=== PATIENT | male | born 1975 | race Caucasian/White ===

== ENCOUNTER 2017-04-24 16:00 | Outpatient (RCR) | payer OTHER, SELFPAY ==
--- NOTE | 2017-04-08 17:03 | HP.PTEVAL_ITS ---
Patient's Visit Information DANIELLE DUMAS is a 41 year old M referred to Physical Therapy by Eliu OLIVEIRA with a diagnosis of L ant tib tendon rupture. Date of Evaluation: 04/08/17 Physical Therapist: Telly Lanza PT, - Visit Plan Frequency: 2-3x /Week Duration: 3 Weeks Plan: L ankle stretching and strengthening, balance and proprio, bike, and HEP. CP for pain - Subjective Subjective: DOS= 12/20/16. Pt reports he was in a boot NWB'ing for 6 weeks, then in a boot WBAT for 6 more weeks. Pt reports he was lifting heavier boxes back then and experienced a sudden popping his L ankle. Pt reports the pain was severe at first, but then went away and didnt bother him. Pt reports he still had to have surgery due to toe drop while walking. Pt reports he is glad he had the surgery at this time. Pt reports he is now in full control lof his foot, even though the ROM is very limited. No T or N from this injury. Pt reports he broke his L lower leg and ankle in in 2010 when descending stairs. 0/10 at rest , None over the last week. 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 Neuro: B LE sensation is WNL to light touch. MMT: R ankle 5/5 throughout, L ankle 3+/5 throughout. ROM: R DF= 9, PF=55; L ankle DF= -5, PF= 35 - Goals Goal 1:: Decrease L ankle pain to 0/10 with all activity to return to his premorbid level Goal Time Frame: 3 weeks Goal 2:: Increase L ankle DF ROM x 15 degrees to aid with restoring normal gait pattern Goal Time Frame: 3 weeks Goal 3:: Increase L ankle strength x 1 grade to aid with IADL's Goal Time Frame: 3 weeks Goal 4:: I with HEP Goal Time Frame: 3 weeks - Rehabilitation Potential Physical Therapy Diagnosis: L ankle pain, weakness, and limited ROM secondary to a L anterior tibial tendon rupture Rehabilitation Potential: Good - Anticipated Interventions Patient/Client Instruction: Educate patient on: Condition, Plan of Care For the Purpose of:: To improve self management Therapeutic Exercise to Include: Strength training, Endurance training, Balance training, Body mechanics, Gait and locomotor training, Dynamic Lumbar Stabilization For the Purpose of:: To decrease pain, To increase ROM, To improve muscle performance and motor function Cryotherapy (ice pack, ice massage): Yes For the Purpose of:: To decrease pain Thank you for the opportunity to evaluate your patient. For Medicare and Medicare HMO plans, please review the plan of care and approve it. It will need to be FAXED BACK to us at [phone] for Medicare purposes. Please let me know if there are questions or concerns regarding this plan of care. Physician Signature: Date:
--- NOTE | 2017-06-16 12:05 | HP.PT.NRP ---
HP - Discharge Summary (1) - Patient Information DANIELLE DUMAS was seen in my office for initial evaluation on 04/08/17. The following Plan of Care was established for this patient: Initial Frequency: 2-3x /Week Initial Duration: 3 Weeks - Anticipated Interventions Patient/Client Instruction: Educate patient on: Condition, Plan of Care For the Purpose of:: To improve self management Therapeutic Exercise to Include: Strength training, Endurance training, Balance training, Body mechanics, Gait and locomotor training, Dynamic Lumbar Stabilization For the Purpose of:: To decrease pain, To increase ROM, To improve muscle performance and motor function Cryotherapy (ice pack, ice massage): Yes For the Purpose of:: To decrease pain This patient was last seen in our office . Pertinent comments regarding their Physical therapy will appear below: Pt was last treated on the date of 04/24/17 for his third PT visit. Pt has not returned since that date and is therefore discontinued at this time At this point I will be discontinuing this patient from physical therapy. I would be happy to see this patient again in the future if found appropriate by the physician. Thank you! Telly Lanza, PT,
== END 2017-04-24 19:00 | disposition home or self-care (01) ==
LOC: PT 16:00
PROVIDERS: Family Provider Family Medicine; PCP Family Medicine; Visit Provider Podiatrist
DX: Z98.890 Other specified postprocedural states (principal)
CPT/HCPCS: 97110; 97161

== ENCOUNTER → 2018-11-17 17:40 | Outpatient (CLI) | payer MEDICAID, SELFPAY | PROVIDERS: Family Provider Family Medicine; PCP Family Medicine; Referring Provider Podiatrist; Visit Provider Podiatrist | DX: L03.032 Cellulitis of left toe (principal) | CPT/HCPCS: 87070; 87075; 87077; 87186; 87205 ==

== ENCOUNTER → 2019-04-01 17:44 | Outpatient (CLI) | payer MEDICAID, SELFPAY ==
[2016-12-20 11:17] VITALS: BMI 50.1
== END ==
PROVIDERS: PCP Family Medicine; Referring Provider Podiatrist; Visit Provider Podiatrist
DX: L03.031 Cellulitis of right toe (principal)
CPT/HCPCS: 87070; 87075; 87077; 87186; 87205

== ENCOUNTER → 2019-04-30 11:41 | Outpatient (CLI) | payer MEDICAID, SELFPAY ==
[2019-04-30 10:50] VITALS: BMI 44.4
[2019-04-30 12:29] LABS: Absolute Lymphocyte Count 2.53 X10^3/uL (0.83-4.51); Absolute Neutrophil Count 7.5 X10^3/uL (2.0-7.7); Basophil# 0.03 X10^3/uL; Basophil% 0.3 % (0-1); Eosinophil# 0.16 X10^3/uL; Eosinophils% 1.4 % (0-5); Hematocrit 48.9 % (40-54); Hemoglobin 16.1 g/dL (13.0-16.5); Lymphocyte # 2.53 X10^3/ul (4.0); Lymphocyte % 22.8 % (19-41); Mean Corp Hgb Conc 32.9 g/dL (32-36); Mean Corpuscular Hgb 28.8 pg (27.0-32.0); Mean Corpuscular Volume 87.5 fL (80-94); Mean Platelet Vol. 10.3 fl (6.2-12.0); Monocyte# 0.86 X10^3/uL; Monocyte% 7.7 % (0-10); NRBC Flagged by Analyzer 0 % (0-5); Neutrophil # 7.48 X10^3/uL (2.7-7.7); Neutrophil % 67.3 % (47-70); Platelet Count 200 K/mm3 (150-450); RBC Distribution Width CV 13.4 % (11.6-14.6); RBC Distribution Width SD 42.7 fl (35.1-43.9); Red Blood Count 5.59 M/mm3 (4.6-6.2); White Blood Count 11.1 K/mm3 (4.4-11.0)
[2019-04-30 13:29] LABS: ALB/GLOB Ratio 1.1 RATIO (0.9-2.4); AST(SGOT) 31 U/L (15-37); Alanine Aminotransfer ALT/SGPT 78 U/L (16-61); Alkaline Phosphatase 99 U/L (45-117); Anion Gap 6 (5-15); BUN 18 mg/dL (7-18); Calcium,Total 9.2 mg/dL (8.5-10.1); Chloride 105 mmol/L (98-107); Cholesterol 124 mg/dL (200); Creatinine, Serum 0.82 mg/dL (0.70-1.30); EST Glomerular Filtration Rate 109 mL/min (>60); Est Glom Filt Rate - Afr Amer 132 mL/min (>60); Globulin 3.6 g/dL (2.2-4.2); Glucose 96 mg/dL (74-106); High Density Lipoprotein 26 mg/dL; Potassium 4.2 mmol/L (3.5-5.1); Protein, Total 7.6 g/dL (6.4-8.2); Sodium Level 139 mmol/L (136-145); Triglycerides 92 mg/dL; Very Low Density Lipoprotein 18 mg/dL (5-40)
== END ==
PROVIDERS: PCP Internal Medicine; Referring Provider Internal Medicine; Visit Provider Internal Medicine
DX: Z00.00 Encounter for general adult medical examination without abnormal findings (principal)
CPT/HCPCS: 36415; 80053; 80061; 85025

== ENCOUNTER → 2019-05-12 | Outpatient (CLI) | payer MEDICAID, SELFPAY ==
[2019-04-30 10:50] VITALS: BMI 44.4
== END | disposition home or self-care (01) ==
LOC: LABSPEC 16:45
PROVIDERS: PCP Internal Medicine; Referring Provider Podiatrist; Visit Provider Podiatrist
DX: L97.519 Non-pressure chronic ulcer of other part of right foot with unspecified severity (principal); L03.031 Cellulitis of right toe
CPT/HCPCS: 87070; 87075; 87077; 87186; 87205

== ENCOUNTER 2019-06-11 05:55 | Day surgery (SDC) | payer MEDICAID, SELFPAY ==
[2019-04-30 10:50] VITALS: BMI 44.4
--- NOTE | 2019-06-09 11:13 | EKG12_ITS ---
Test Reason : PRE OP Blood Pressure : / mmHG Vent. Rate : 071 BPM Atrial Rate : 071 BPM P-R Int : 148 ms QRS Dur : 094 ms QT Int : 378 ms P-R-T Axes : 045 003 024 degrees QTc Int : 410 ms Normal sinus rhythm Normal ECG When compared with ECG of 31-DEC-2010 19:29, No significant change was found Confirmed by PATTI LEAL, PAULINA ([id number]), editor producer RADHA ALLISON ([id number]) on 06/09/2019 1:12:12 PM Referred By: Eliu Benites Confirmed By:PAULINA ARMSTRONG MD
[2019-06-11] VITALS (9 sets, daily range): BP systolic 87–135; BP diastolic 54–70; PULSE 64–76; RESP 16–18; TEMP 36.4; O2SAT 92–98; BMI 43.2
--- NOTE | 2019-06-11 | BON_PTH ---
PATIENT: DANIELLE DUMAS LOC: [facility] – [place] U#:[id number] AGE/SX: 43/M ROOM: RE06/11/[address]: Dr. Eliu Benites DPM : 1975 BED: DIS: 06/11/2019 SPEC #: [id number] RECD: 06/11/19 12:05 STATUS: CANDY KEV #: [id number] BEVERLY: 06/11/19 00:[address]: Eliu Benites DEPT: SURGICAL PATHOLOGY RECD BY: Ross Stanley ENTERED: 06/11/19 12:05 SP TYPE: Bone OTHR DR: Dr. Licha Brar MD Tissues: Bone of foot, NOS Procedures: Decalcification bone/plaque Surgery Specimen Level IV HEADER OPERATION: Mason arthroplasty first toe, fusion second, third and fourth toes PRE-OP DIAGNOSIS: Recurrent infection right third toe with ulcer formation, hammertoe 2-5 and hallux varus right foot TISSUE SUBMITTED: Bone from right 1-5 toes MICROSCOPIC DIAGNOSIS Bone, 1-5 toes, biopsies: Chronic reparative and reactive change. No evidence of acute osteomyelitis. See comment. AM:tiffany 06/17/19 COMMENT Clinical correlation is suggested. MICROSCOPIC DESCRIPTION Slides are reviewed. GROSS DESCRIPTION Received in fixative is one container labeled with the patient's name and designated bone from right 1-5 toes. The specimen consists of multiple fragments of bone that in aggregate measure 6.5 x 5 x 2 cm. Admittance Attendant sections are submitted in four cassettes after decalcification. / SJ:tiffany 06/14/19 TC:5 CPT: 30711, 02722
[2019-06-11] MEDS: Lactated Ringers 1,000 ML 100 ML IV (06:24)
--- NOTE | 2019-06-11 07:28 | DCINST_ITS ---
Discharge Diet: Light diet - advance as tolerated Discharge Activity: May Not Drive Weight Bearing Status: No weight bearing - No weightbearing right foot Keep extremity elevated above heart level: Right Leg - Keep right foot elevated for at least 50 minutes of every hour Call your doctor if your incision/area has: Continuous Slow Oozing, Sudden Increased Bleeding, Foul Smelling Discharge Call your doctor if you observe: Fever of 101 or Higher, Shortness of breath, Chest pain, Calf discomfort, Uncontrolled pain Cleanse incision/area with: Do not get Incision Wet, Keep Dressing Clean & Dry Allergies/Adverse Reactions: Allergies No Known Allergies Allergy (Verified 06/11/19 06:14) Medications to take at Discharge Amoxicillin/Potassium Clav [Augmentin 875-125 Tablet] 1 ea PO Q12H #14 tab 06/11/19 Oxycodone HCl/Acetaminophen [Percocet 5/325] 1 - 2 tab PO Q6H PRN PRN 4 Days #30 tab 06/11/19 The following prescriptions were given: Amoxicillin/Potassium Clav [Augmentin 875-125 Tablet] 1 ea PO Q12H #14 tab Transmission Status: Received by [facility] Oxycodone HCl/Acetaminophen [Percocet 5/325] 1 - 2 tab PO Q6H PRN PRN 4 Days #30 tab PRN Reason: Pain Transmission Status: Received by [facility] Primary Care Physician: Licha Brar MD [Primary Care Provider] - Test Results: Test results from this visit will be discussed in further detail at your follow- up appointment, if applicable. Please Follow Up With: Eliu Benites DPM When: 1 week at office, sooner if needed
--- NOTE | 2019-06-11 07:30 | RAD_ITS ---
STUDY: X-RAY RIGHT FOOT TOES REASON FOR EXAM: Male, 43 years old. RAMOS ARTHROPLASTY OF 1ST TOE, FUSION OF 2-4TH TOES, AND ARTHROPLASTY OF 5TH TOE TECHNIQUE: 48 intraoperative view(s) of the toes. COMPARISON: December 14, 2016. IMPRESSION/FINDINGS: Multiple arthroplasties/arthrotomies with hardware well aligned Fluoroscopic images submitted to PACS for procedural/postsurgical documentation Please see procedural/surgical note Radiologist not present at the time of examination Electronically Signed: Cheo Carlson DO at 11:10 EDT Tel , Service support , RAD/Toe(s) Min 2 Views
[2019-06-11] MEDS: Bupivacaine Mpf 0.5% 30 ML VIAL (10:11)
--- NOTE | 2019-06-11 10:26 | OP.PCM_ITS ---
Report of Operation Date of Procedure: 06/11/19 Pre-Operative Diagnosis: Right foot: Ulcer to subcutaneous tissue 3rd toe, Hallux varus, 2-5 hammer toe. 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 He has ulceration to the left 3rd toe, with recurrent infection. Overall worsening is present, and there is concern about repeat infections to the 3rd toe. Therefore since symptoms persist and overall worsening with repeat infections despite nonsurgical care, he has elected to undergo surgical intervention. This is medically necessary due to reasons above. Reviewed risks of COVID 19 w/ patient. This was discussed with him in detail, reviewed the possible benefits vs risks, goals, expectations, alternative options, and typical healing/post op recovery. The consent forms were reviewed with him, and he freely signed them. He would like to proceed forward. All of questions were answered. No guarantees were given nor implied. No warranties were given. Operative Procedure: The patient was brought back into the operating room and was placed on the operating room table in the supine position. Patient was carefully secured to the operating room table with a safety belt around the waist. A time out was performed and the patient was properly identified and the surgical plan was confirmed. The patient received 3g of IV cefazolin for antibiotic prophylaxis. A well padded pneumatic tourniquet was applied around the patient's right ankle. The patient received anesthesia per the anesthesiologist. The right foot was scrubbed, prepped, draped in the usual aseptic fashion. Further attention was directed to the right foot and there again was noted to be severe hallux varus and 2-5 hammer toes with ulceration to the tip of the 3rd toe - the ulcer was currently down to dermal layer, however was recently down to subcutaneous tissue layer. There was acute infection at this time, but patient has had repeat infections and overall symptoms worsening w/ pain. A total of 16.5 mL of a 50/50 mixture of 1% Lidocaine plain and 0.5% Bupivacaine pain was given as a forefoot nerve block. The right foot was exsanguinated with an Esmarch bandage and the ankle pneumatic tourniquet was inflated to 250mmHg. Right hallux varus: The 1st toe was significantly medially deviated and severely deformed w/ significant limited range of motion to the 1st metatarsal phalangeal joint. A linear longitudinal skin incision was made overlying the dorsal medial aspect of the 1st metatarsal phalangeal joint, located medial to the extensor hallucis longus tendon. The incision was carefully deepened to the dorsal 1st metatarsal phalangeal joint capsule, which was incised and partially reflected exposing the 1st metatarsal head as well as the base of the hallux proximal phalanx. The 1st MTPJ was visualized and there was significant degenerative changes present consistent with advanced osteoarthritis and deformity. The base of the hallux proximal phalanx was excised but the very distal insertion point of the flexor digitorum brevis was left intact. There was still some varus deformity and limited range of motion, therefore due to severe arthritic changes and deformity the distal aspect of the 1st metatarsal was resected via a powered sagittal saw. Now the toe was in good position and this allowed for good smooth range of motion of the hallux. The resected bone was sent to pathology for further evaluation. The toe was now in good alignment. The site was stabilized with a Sofia pin through the 1st toe into the 1st metatarsal with the 1st toe in rectus position and out to appropriate length. The site was flushed out with copious amounts of normal saline solution. The capsule was reapproximated using 2-0 and 3-0 Vicryl, the subcutaneous tissue was reapproximated using 3-0 Vicryl, and the skin was reapproximated using 4-0 Monocryl. The pin was trimmed outside of the toe at the distal aspect and was capped with a pin cap. Right 2nd digit hammer toe: Attention was directed to the toe on the right foot. A dorsal linear longitudinal incision was made over the proximal interphalangeal joint (PIPJ) of the toe. An incision was made longitudinally to the extensor digitorum longus tendon and split down the middle, leaving the ends intact, this was done with a 15 blade. The dorsal PIPJ joint capsule was incised with a 15 blade. The cartilage from the head of the proximal phalanx was resected using a powered sagittal saw, and cartilage from the base of the middle phalanx was resected using a sagittal saw. The site was flushed out with copious amounts of normal saline solution. An Arthrex FT compression screw was placed through the phalanges of the toe holding the toe in rectus position. This was confirmed with intra operative fluoroscopy. The site was again flushed out with copious amounts of normal saline solution. The skin was reapproximated using 4-0 Monocryl. Right 3rd digit hammer toe: Attention was directed to the toe on the right foot. A dorsal linear longitudinal incision was made over the proximal interphalangeal joint (PIPJ) of the toe. An incision was made longitudinally to the extensor digitorum longus tendon and split down the middle, leaving the ends intact, this was done with a 15 blade. The dorsal PIPJ joint capsule was incised with a 15 blade. The cartilage from the head of the proximal phalanx was resected using a powered sagittal saw, and cartilage from the base of the middle phalanx was resected using a sagittal saw. The site was flushed out with copious amounts of normal saline solution. An Arthrex FT compression screw was placed through the phalanges of the toe holding the toe in rectus position. This was confirmed with intra operative fluoroscopy. The site was again flushed out with copious amounts of normal saline solution. The skin was reapproximated using 4-0 Monocryl. Right 4th digit hammer toe: Attention was directed to the toe on the right foot. A dorsal linear longitudinal incision was made over the proximal interphalangeal joint (PIPJ) of the toe. An incision was made longitudinally to the extensor digitorum longus tendon and split down the middle, leaving the ends intact, this was done with a 15 blade. The dorsal PIPJ joint capsule was incised with a 15 blade. The cartilage from the head of the proximal phalanx was resected using a powered sagittal saw, and cartilage from the base of the middle phalanx was resected using a sagittal saw. The site was flushed out with copious amounts of normal saline solution. An Arthrex FT compression screw was placed through the phalanges of the toe holding the toe in rectus position. This was confirmed with intra operative fluoroscopy. The site was again flushed out with copious amounts of normal saline solution. The skin was reapproximated using 4-0 Monocryl. Right 5th digit hammer toe: Two oblique semi-elliptical converging skin incisions were made around the dorsal aspect of the proximal interphalangeal joint (PIPJ) of the 5th toe. The skin within the incisions was excised. The extensor digitorum longus tendon was visualized and incised transversely with a 15 blade. The dorsal PIPJ joint capsule was incised with a 15 blade. The extensor tendon was reflected off of the head of the proximal phalanx. The PIPJ was visualized. The head of the proximal phalanx was resected using a powered sagittal saw, and this was sent to pathology. The site was flushed out with copious amounts of normal saline solution. A 0.062 inch kwire was placed through the phalanges of the toe holding the toe in rectus position. This was confirmed with intra operative fluoroscopy. The site was again flushed out with copious amounts of normal saline solution. The joint capsule and extensor digitorum longus tendon was reapproximated using 3-0 Vicryl, the skin was reapproximated using 4-0 Monocryl. The kwire was trimmed outside of the toe at the distal aspect and was capped with a pin cap. The pneumatic tourniquet was deflated at 109 minutes which was prior to closure, and there was immediate return of warmth and perfusion to the foot and to all toes on the foot with normal temperature gradient and CFT < 2 seconds to all toes. Hemostasis was achieved with pressure. Also of note all vital structures including all vital neurovascular and soft tissue structures were properly identified, retracted, and protected as necessary during the procedures. An additional 16.5 mL of a 50/50 mixture of 1% Lidocaine plain and 0.5% Bupivacaine pain was given as a forefoot nerve block to aid with post op pain control. At the end, a dressing was applied which consisted of Cavilon to the edges of the sutured skin incision with overlying steristrips. Then Betadine soaked adaptic, 4x4 gauze, Kerlix, and haily bandages were applied being sure to apply it not too tight. The patient tolerated the above operative procedure well at the anesthesia well with no complication. The patient was transported to the recovery room with vital signs stable and in good condition. Post operative orders were placed. Post operative instructions were reviewed and dispensed verbal and written - this was reviewed with patient and pre op and again with patient's post op. No weightbearing right, keep foot elevated for at least 50 minutes of every hour, keep dressing clean, dry and intact. Prescription for Percocet 5mg/325mg tabs - 1-2 tabs PO q 6 hours prn pain was prescribed, also Augmentin 875/125mg PO q 12 hours for 1 week due to infection history. Patient is to follow up with me in 1 week, sooner if needed. Also post op foot xrays (right) were obtained and reviewed in the PACU. Findings show 1st MTPJ arthroplasty with 1st toe in rectus position and pin intact, arthrodesis 2nd toe, 3rd toe, and 4th toe with toes in rectus position, also arthroplasty 5th toe in rectus position with kwire intact. Otherwise no other acute findings and no complications seen. Grafts/Implants Used: 1 Sofia pin, 1 x 0.062 in kwire, 3 x Arthrex FT screws - Complications None
--- NOTE | 2019-06-11 10:31 | RAD_ITS ---
STUDY: X-RAY - RIGHT FOOT CLINICAL: Male, 43 years old. Postoperative evaluation. TECHNIQUE: 3 view(s) of the foot. COMPARISON: December 20, 2016. FINDINGS: Arthroplasty at the first metatarsophalangeal joint. First digit surgical fixation hardware and intact/well aligned. Moderate/severe first interphalangeal joint arthrosis. Second through fifth proximal and distal interphalangeal joint fixations with degenerative features. No acute postoperative complications. Mild/moderate tarsometatarsal joint arthrosis. Moderate diffuse midfoot arthrosis. Achilles enthesophyte. Plantar spur. Postoperative soft tissues. RAD/Foot min 3 Views IMPRESSION: Uncomplicated postsurgical changes, as above Degenerative changes, as above Postoperative soft tissues Electronically Signed: Cheo Carlson DO at 11:12 EDT Tel , Service support ,
== END 2019-06-11 12:24 | disposition home or self-care (01) ==
LOC: SDC 05:56 → AC 05:56
PROVIDERS: PCP Internal Medicine; Referring Provider Podiatrist; Visit Provider Podiatrist
PROC: (CPT 28285; principal; 2019-06-11 07:15)
DX: M20.41 Other hammer toe(s) (acquired), right foot (principal); L97.512 Non-pressure chronic ulcer of other part of right foot with fat layer exposed; M20.31 Hallux varus (acquired), right foot; L97.529 Non-pressure chronic ulcer of other part of left foot with unspecified severity; Z87.891 Personal history of nicotine dependence
CPT/HCPCS: 01480; 28285 ×5; 73630; 73660; 76000; 88304; 88305; 88311; 93005; C1713; J7120; J2405

== ENCOUNTER 2019-07-24 20:48 | Inpatient (IN) | payer MEDICAID, SELFPAY ==
[2019-06-11 06:16] VITALS: BMI 43.2
[2019-07-24] VITALS (8 sets, daily range): BP systolic 115–128; BP diastolic 62–77; PULSE 77–93; RESP 13–20; TEMP 36.6–36.8; O2SAT 96–99; BMI 42.0
--- NOTE | 2019-07-24 21:34 | CT_ITS ---
STUDY: CT RIGHT FOOT REASON FOR EXAM: Male, 43 years old. S/P RIGHT FOOT SX 4-24, EDEMA AND DRAINAGE NOW WITH ERYTHEMA RADIATION DOSAGE (If Supplied By Facility): CTDIvol = ( 15.35 ) mGy, DLP = ( 449.71 ) mGycm TECHNIQUE: Thin section transaxial imaging of the foot was obtained, with sagittal and coronal reconstructed images. Individualized dose optimization techniques were used for this CT. COMPARISON: Radiographs 06/10/2009. FINDINGS: Abnormal appearance of the first metatarsal joint area. Previously seen K wire through the joint has been removed. There is nonspecific soft tissue swelling surrounding the first metatarsophalangeal area and there are irregularities of the resected edges of the first metatarsal and the first proximal phalanx along with a small amount of bone debris in the surgical bed. Findings are nonspecific but strongly suggest infection including osteomyelitis. Stable post surgical changes of the second third and fourth digits. K wire has been removed from the fifth digit. No definite focal fluid collection, however fluid in the postoperative site of the first ray is not excluded. Degenerative changes throughout the midfoot. CT/Extremity Lower WITH Contrast IMPRESSION: Nonspecific appearance of the postoperative bed of the first metatarsal head and first proximal phalanx. Soft tissue swelling. Possible osteolytic destruction of the resected edges of the bones with some calcific debris. Osteomyelitis surrounded by soft tissue infection strongly suggested. Electronically Signed: Matteo Manjarrez MD at 22:53 EDT , Service support ,
[2019-07-24 21:50] LABS: Absolute Lymphocyte Count 3.25 X10^3/uL (0.83-4.51); Absolute Neutrophil Count 8.5 X10^3/uL (2.0-7.7); Basophil# 0.02 X10^3/uL; Basophil% 0.2 % (0-1); Eosinophil# 0.17 X10^3/uL; Eosinophils% 1.3 % (0-5); Hematocrit 46.2 % (40-54); Hemoglobin 14.9 g/dL (13.0-16.5); Lymphocyte # 3.25 X10^3/ul (4.0); Lymphocyte % 25.2 % (19-41); Mean Corp Hgb Conc 32.3 g/dL (32-36); Mean Corpuscular Hgb 28.3 pg (27.0-32.0); Mean Corpuscular Volume 87.8 fL (80-94); Mean Platelet Vol. 9.3 fl (6.2-12.0); Monocyte# 0.92 X10^3/uL; Monocyte% 7.1 % (0-10); NRBC Flagged by Analyzer 0 % (0-5); Neutrophil # 8.47 X10^3/uL (2.7-7.7); Neutrophil % 65.8 % (47-70); Platelet Count 214 K/mm3 (150-450); RBC Distribution Width CV 13.5 % (11.6-14.6); Red Blood Count 5.26 M/mm3 (4.6-6.2); White Blood Count 12.9 K/mm3 (4.4-11.0)
--- NOTE | 2019-07-24 21:54 | ED.VIS.GEN ---
History of Present Illness Chief Complaint: Wound Check Informant: Patient Onset: Today Narrative: Patient had right foot surgery by Dr. Benites at the end of May. He states he was healing up appropriately was due to come out of his boot this coming week. Today when he awoke he noted significant swelling redness and warmth coming from the right great toe and associated metatarsal. The surgical incision began to open up and drain fluid. He states he really was not feeling having had some diarrhea and fatigue. no known fever. Past Medical History - Allergies and Home Meds Allergies/Adverse Reactions: Allergies No Known Allergies Allergy (Verified 07/24/19 20:53) Smoking Status: Former smoker - Family History Maternal Family History: Family History (Last Updated 04/30/19 @ 10:54 by Adelia Ferrer) Father Colon cancer Diabetes Skin cancer Mother Hypertension Family History: Reports: Hypertension Paternal Family History: Family History (Last Updated 04/30/19 @ 10:54 by Adelia Ferrer) Father Colon cancer Diabetes Skin cancer Mother Hypertension Family History: Reports: Cancer - Colon cancer., Diabetes Review of Systems General: Denies: Chills, Fever, Sweats Eyes: Denies: Visual changes - bilaterally, Diplopia ENT: Denies: Rhinorrhea, Sore throat Cardiovascular: Denies: Chest pain, Palpitations Respiratory: Denies: Dyspnea, Cough, Dyspnea on exertion Gastrointestinal: Denies: Abdominal pain, Nausea, Vomiting, Diarrhea, Melena, Hematochezia Genitourinary: Denies: Dysuria, Hematuria, Frequency Musculoskeletal: Reports: Swelling, Extremity Pain. Denies: Back pain Skin: Reports: Rash. Denies: Wounds Neurological: Denies: Headache, Weakness, Numbness Physical Exam Vital Signs/Narrative: Vital Signs Temp Pulse Resp BP Pulse Ox 07/24/19 21:50 88 18 124/77 H 97 07/24/19 21:27 98 F 90 18 124/77 H 97 07/24/19 20:49 98.2 F 93 15 128/65 H 97 Inital Vital Signs reviewed: Yes General: Well nourished, Well developed, No Acute Distress Head: Normocephalic, Atraumatic Eyes: Perrl, EOMI ENT: Moist mucous membranes, No rhinorrhea Neck: Supple, Nontender Cardiovascular: Regular rate, Regular rhythm, No murmurs Respiratory: No distress, CTA bilaterally, Chest nontender Abdomen: Soft, Nontender, Nondistended, Normal bowel sounds Back: Nontender, Normal Inspection Extremities: Tenderness - Right great toe and associated metatarsal region showed significant swelling and erythema and warmth. The distal part of the great toe however appears normal. The surgical incision is opening and there is serosanguineous drainage. There is no lymphangitic streaking. I do not know if there is fluctuance or just edema that I am feeling. Skin: Normal color, No rash Neurological: Alert, Oriented x3, Cranial nerves II-XII grossly intact, Normal Strength, Normal Sensation Psychological: Normal affect, Normal Mood Diagnostic/Tx/Re-eval Clinical Impression(s) from Imaging Studies Lower Extremity CT 07/24/19 21:34 IMPRESSION: Nonspecific appearance of the postoperative bed of the first metatarsal head and first proximal phalanx. Soft tissue swelling. Possible osteolytic destruction of the resected edges of the bones with some calcific debris. Osteomyelitis surrounded by soft tissue infection strongly suggested. Electronically Signed: Matteo Manjarrez MD at 22:53 EDT , Service support , Laboratory Last Values WBC 12.9 K/mm3 (4.4-11.0) H 07/24/19 21:38 RBC 5.26 M/mm3 (4.6-6.2) 07/24/19 21:38 Hgb 14.9 g/dL (13.0-16.5) 07/24/19 21:38 Hct 46.2 % (40-54) 07/24/19 21:38 MCV 87.8 fL (80-94) 07/24/19 21:38 MCH 28.3 pg (27.0-32.0) 07/24/19 21:38 MCHC 32.3 g/dL (32-36) 07/24/19 21:38 RDW Std Deviation 43.0 fl (35.1-43.9) 07/24/19 21:38 RDW Coeff of Gabriella 13.5 % (11.6-14.6) 07/24/19 21:38 Plt Count 214 K/mm3 (150-450) 07/24/19 21:38 MPV 9.3 fl (6.2-12.0) 07/24/19 21:38 Immature Gran % (Auto) 0.400 % (0.0-0.9) 07/24/19 21:38 Neut % (Auto) 65.8 % (47-70) 07/24/19 21:38 Lymph % (Auto) 25.2 % (19-41) 07/24/19 21:38 [place] % (Auto) 7.1 % (0-10) 07/24/19 21:38 Eos % (Auto) 1.3 % (0-5) 07/24/19 21:38 Baso % (Auto) 0.2 % (0-1) 07/24/19 21:38 Absolute Neuts (auto) 8.5 X10^3/uL (2.0-7.7) H 07/24/19 21:38 Absolute Lymphs (auto) 3.25 X10^3/uL (0.83-4.51) 07/24/19 21:38 Nucleated RBC % 0 % (0-5) 07/24/19 21:38 PT 14.9 SECONDS (11.7-14.9) 07/24/19 21:38 INR 1.2 07/24/19 21:38 APTT 33.3 Seconds (24.1-36.2) 07/24/19 21:38 Sodium 142 mmol/L (136-145) 07/24/19 21:38 Potassium 3.7 mmol/L (3.5-5.1) 07/24/19 21:38 Chloride 107 mmol/L (98-107) 07/24/19 21:38 Carbon Dioxide 29.0 mmol/L (21.0-32.0) 07/24/19 21:38 Anion Gap 6 (5-15) 07/24/19 21:38 BUN 22 mg/dL (7-18) H 07/24/19 21:38 Creatinine 0.79 mg/dL (0.70-1.30) 07/24/19 21:38 Estim Creat Clear Calc 144.10 ml/min 07/24/19 21:38 Est GFR (MDRD) Af Amer 138 mL/min (>60) 07/24/19 21:38 Est GFR (MDRD) Non-Af 114 mL/min (>60) 07/24/19 21:38 BUN/Creatinine Ratio 28.0 RATIO (10-20) H 07/24/19 21:38 Glucose 100 mg/dL (74-106) 07/24/19 21:38 Lactic Acid 0.8 mmol/L (0.4-1.9) 07/24/19 21:38 Calcium 8.8 mg/dL (8.5-10.1) 07/24/19 21:38 Total Bilirubin 0.60 mg/dL (0.20-1.00) 07/24/19 21:38 AST 15 U/L (15-37) 07/24/19 21:38 ALT 48 U/L (16-61) 07/24/19 21:38 Alkaline Phosphatase 94 U/L (45-117) 07/24/19 21:38 C-React Prot Ext Range 38.00 mg/L (0.0-3.0) H 07/24/19 21:38 Total Protein 7.0 g/dL (6.4-8.2) 07/24/19 21:38 Albumin 3.5 g/dL (3.2-5.0) 07/24/19 21:38 Globulin 3.5 g/dL (2.2-4.2) 07/24/19 21:38 Albumin/Globulin Ratio 1.0 RATIO (0.9-2.4) 07/24/19 21:38 - Medical Decision Making Patient received vancomycin and Zosyn. Dr. Terrell came to the emergency department. They are recommending admission for IV antibiotics and further evaluation. ED Disposition - Plan for ED Patient: Disposition: Acute Care Hospital [facility] Diagnosis: Postoperative wound cellulitis, Morbid obesity, Diarrhea
[2019-07-24 21:58] LABS: International Normalized Ratio 1.2; Prothrombin Time (Protime)PT. 14.9 SECONDS (11.7-14.9)
[2019-07-24 21:59] LABS: Partial Thromboplast Time 33.3 Seconds (24.1-36.2)
[2019-07-24 22:07] LABS: AST(SGOT) 15 U/L (15-37); Alanine Aminotransfer ALT/SGPT 48 U/L (16-61); Albumin, Serum 3.5 g/dL (3.2-5.0); Alkaline Phosphatase 94 U/L (45-117); Anion Gap 6 (5-15); BUN 22 mg/dL (7-18); Calcium,Total 8.8 mg/dL (8.5-10.1); Chloride 107 mmol/L (98-107); Creatinine, Serum 0.79 mg/dL (0.70-1.30); EST Glomerular Filtration Rate 114 mL/min (>60); Est Glom Filt Rate - Afr Amer 138 mL/min (>60); Globulin 3.5 g/dL (2.2-4.2); Glucose 100 mg/dL (74-106); Potassium 3.7 mmol/L (3.5-5.1); Sodium Level 142 mmol/L (136-145)
[2019-07-24 22:18] LABS: Lactic Acid 0.8 mmol/L (0.4-1.9)
--- NOTE | 2019-07-24 23:35 | RAD_ITS ---
STUDY: X-RAY - RIGHT FOOT CLINICAL: Male, 43 years old. S/P RIGHT FOOT SURGERY 06/10. CONCERNED THAT RIGHT GREAT TOE IS INFECTED +EDEMA AND BLOODY PUS DRAINAGE TECHNIQUE: 3 view(s) of the foot. COMPARISON: June 11, 2019 FINDINGS: The distal first metatarsal metaphyses demonstrate slightly irregular cortex the surgical site, soft tissue calcification and swelling. There is fusion arthrodesis of the second third and fourth digit. Interval removal of the fifth and first metallic hardware. There is resorption along the fifth proximal interphalangeal joint with sclerosis foreshortening of the fifth proximal phalanx compared to previous exam. There is a plantar calcaneal spur an enthesophyte. Arthropathy along the visualized subtalar, talonavicular, calcaneocuboid, tarsal and tarsometatarsal articulations appears progressed particularly involving the scaphoid and medial cuneiform.. Otherwise normal Normal metatarsi. Normal tibial and fibular sesamoid bones. There is degenerative arthrosis of the interphalangeal joint of the great toe. Normal phalanges of the great toe. Normal second through fifth metatarsophalangeal joints. RAD/Foot min 3 Views IMPRESSION: Findings concerning for early osteomyelitis involving the first metatarsal-phalangeal level at the distal first metatarsal metaphyses. Resorption of the distal fifth phalanx is indeterminate. There is no significant adjacent soft tissue swelling. Increasing arthropathy involving the tarsi. Postsurgical changes as above. Electronically Signed: Arlene Licea MD at 1:20 EDT , Service support ,
--- NOTE | 2019-07-24 23:39 | CON.PCM_ITS ---
Problem List (1) Right foot infection Status: Acute (2) Former tobacco use Status: Chronic (3) Morbid obesity Status: Chronic (4) ASH (obstructive sleep apnea) Status: Suspected Reason for Consult Date of Consultation: 07/24/19 Reason for Consultation: R foot pain, erythema, drainage, diarrhea. History of Present Illness: The patient is a 43 y/o M w/ PMHx: Former Tobacco use w/ hx right foot third toe subcutaneous tissue ulcer, hallux varus and 2-5 hammertoes recent OR 06/11/[address] Benites with arthroplasty of the right first metatarsal phalangeal joint, arthrodesis 2-4 toes, arthroplasty fifth toe who now represents to the [facility] ED on 07/24/19 with history of awakening with significant right foot redness, erythema primarily around the right great toe with dehiscence of the surgical incision with purulent drainage with general malaise, fatigue but no recent fever but reported chills prompting ED evaluation. patient does report early this morning he felt as though he did have chills and had significant ongoing drainage from the right foot throughout the day with worsening right foot swelling and redness as well as discomfort. He denies any nausea, emesis or abdominal pain but states he had 2 loose stools through the day. He has been remarkably fatigued and napped during the day. Work-up in the ED included T 98, heart rate 90, BP 124/77, respiratory rate 18, 97% room air, CBC with WBC 12.9, hemoglobin 14.9, platelet 214 with left shift, unremarkable coags, remarkable CMP, right lower extremity CT with nonspecific appearance of postoperative bed of the first metatarsal head and first proximal phalanx with soft tissue swelling with possible osteolytic destruction of the resected edges of the bone with some calcific debris what clearly significant for osteomyelitis surrounded by soft tissue infection. Past Medical History Past Medical History (Chronic Problems): Chronic Problems (Last Updated 04/30/19 @ 10:52 by Adelia Ferrer) Former tobacco use (Chronic) Morbid obesity (Chronic) Medical History: Medical History (Last Updated 04/30/19 @ 10:52 by Adelia Ferrer) Fracture, ankle (Resolved) S82.899A Allergies No Known Allergies Allergy (Verified 07/24/19 20:53) Home Medications: Ambulatory Orders Medication Instructions Recorded NK 07/24/19 Surgical History: Surgical History (Last Updated 04/30/19 @ 11:02 by Adelia Ferrer) History of ankle surgery Z98.890 2011 - Fx ankle History of tonsillectomy Z90.89 Hx of foot surgery Z98.890 2017 - Repair Tendon Surgical History: - - Tonsillectomy, bilateral foot surgery, recent right foot surgery. Psychiatric History: No pertinent psych hx Lives: Spouse/ Significant Other Smoking Status: Former smoker - Patient quit cigarette tobacco usage 15 years prior to current presentation with prior to this 1 pack/day since he had been a teenager with approximate [id number] history per his report. Tobacco Use: Non-smoker Alcohol: Occasional Drugs: None - *Family History Maternal Family History: Family History (Last Updated 04/30/19 @ 10:54 by Adelia Ferrer) Father Colon cancer Diabetes Skin cancer Mother Hypertension History Items: Hypertension Paternal Family History: Family History (Last Updated 04/30/19 @ 10:54 by Adelia Ferrer) Father Colon cancer Diabetes Skin cancer Mother Hypertension History Items: Cancer - Colon cancer., Diabetes Review of Systems Constitutional: Reports: Chills, Malaise, Weakness, Fatigue. Denies: Anorexia, Fever, Weight Change HEENT: Denies: Head Aches, Sinus Congestion, Sinus Drainage Cardiovascular: Denies: Chest Pain, Palpitations Respiratory: Denies: Cough, Shortness of breath at rest, Sputum production Gastrointestinal: Reports: Diarrhea. Denies: Abdominal Pain, Nausea, Vomiting Genitourinary: Denies: Dysuria Musculoskeletal: Reports: Foot Pain, Joint Pain. Denies: Joint Tenderness Skin: Reports: Skin Changes, Wounds. Denies: Rash Neurological: Denies: Numbness, Tingling, Focal weakness Psychiatric: Denies: Anxiety, Depression, Homicidal Ideations, Suicidal Ideations Hematologic/ Lymphatic: Denies: Easy Bruising, Easy Bleeding Patient Problems: Active and Suspected Problems (Last Updated 04/30/19 @ 10:52 by Adelia Ferrer) Right foot infection (Acute) ASH (obstructive sleep apnea) (Suspected) Subjective: Patient seated upright in the ED bed, mildly fatigued but otherwise no acute distress. Objective: Physical Examination: General: awake, alert, oriented x 3 and cooperative, seated upright in the ED bed in no apparent distress. Skin: normal color, turgor, no icterus, cyanosis except notable right foot erythema on the dorsal surface especially around the great toe incision which is dehisced, purulent [id number] drainage noted, tender to palpation. HEENT: AT/NC, EOMI, PERRLA, dry MM, no carotid bruits or JVD noted. Lungs: CTA bilaterally, moderate effort, mild decrease BL bases, no rales, ronchi or wheezing. Heart: Regular rate and rhythm; no gallop, rub audible. Abdomen: soft, morbidly obese, NTTP, ND, mildly hyperactive BS, no HSM; however habitus makes examination difficult. Extremities: no cyanosis, clubbing, see skin. Neurological: patient awake, alert, oriented x 3; cognitive function intact; pupils equally reactive to light and accomodation; cranial nerves II-XII grossly normal, moving all 4 extremities, no focal deficits, strength mildly to moderately global decrease secondary to acute presentation. Psychiatric: affect appears mildly fatigued otherwise normal, no acute evidence of depressive or anxiety feelings. - Physical Exam Vitals/I&O's: Vital Signs Temp Pulse Resp BP Pulse Ox 98 F 77 13 115/71 97 07/24/19 23:29 07/24/19 23:29 07/24/19 23:29 07/24/19 23:29 07/24/19 23:29 Oxygen Delivery Method Room Air Weight: 336 lb Body Mass Index (BMI) 42.0 Laboratory Results 07/24/19 21:38: WBC 12.9 H, RBC 5.26, Hgb 14.9, Hct 46.2, MCV 87.8, MCH 28.3, MCHC 32.3, RDW Std Deviation 43.0, RDW Coeff of Gabriella 13.5, Plt Count 214, MPV 9.3, Immature Gran % (Auto) 0.400, Neut % (Auto) 65.8, Lymph % (Auto) 25.2, [place] % (Auto) 7.1, Eos % (Auto) 1.3, Baso % (Auto) 0.2, Absolute Neuts (auto) 8.5 H, Absolute Lymphs (auto) 3.25, Nucleated RBC % 0 07/24/19 21:38: PT 14.9, INR 1.2, APTT 33.3 07/24/19 21:38: Sodium 142, Potassium 3.7, Chloride 107, Carbon Dioxide 29.0, Anion Gap 6, BUN 22 H, Creatinine 0.79, Estim Creat Clear Calc 144.10, Est GFR (MDRD) Af Amer 138, Est GFR (MDRD) Non-Af 114, BUN/Creatinine Ratio 28.0 H, Glucose 100, Calcium 8.8, Total Bilirubin 0.60, AST 15, ALT 48, Alkaline Phosphatase 94, Total Protein 7.0, Albumin 3.5, Globulin 3.5, Albumin/Globulin Ratio 1.0 07/24/19 21:38: Lactic Acid 0.8 07/24/19 21:38: ESR Pending 07/24/19 21:38: C-React Prot Ext Range Pending Current Medications Vancomycin HCl 2,000 mg/ (Sodium Chloride) 540 mls @ 250 mls/hr IV X1 ONE Stop: 07/25/19 01:19 Sodium Chloride () 250 mls @ 15 mls/hr IV .[id number] PRN PRN Reason: Additional IVPB Infusion Last Admin: 07/24/19 23:23 Dose: 15 mls/hr Documented by: Assessment/Plan All Active Problems (Last Updated 04/30/19 @ 10:52 by Adelia Ferrer) Right foot infection (Acute) Fracture, ankle (Resolved) The patient is a 43 y/o M w/ PMHx: Former Tobacco use with recent OR 06/11/[address] Benites with arthroplasty of the right first metatarsal phalangeal joint, arthrodesis 2-4 toes, arthroplasty fifth toe who now represents to the [facility] ED on 07/24/19 with history of awakening with significant right foot redness, erythema primarily around the right great toe with dehiscence of the surgical incision with purulent drainage with general malaise, fatigue but no recent fever but reported chills. 1. RLE Post-operative Cellulitis, concern Osteomyelitis: Recent OR 06/11/[address] Benites with arthroplasty of the right first metatarsal phalangeal joint, arthrodesis 2-4 toes, arthroplasty fifth toe with dehisced incision with drainage with erythema and concern for osteomyelitis per CT however plain film also being obtained per podiatry direction. Patient will be admitted to the medical surgical floor per podiatry, wound culture and wound MRSA PCR per podiatry discretion, continue to trend CBC, elevate affected extremity, expect broad-spectrum antibiotics with potentially Zosyn and vancomycin, ID evaluation per podiatry discretion, monitor erythema outline with VS checks. 2. Morbid Obesity: Weight loss and lifestyle changes encouraged. 3. Suspected ASH: Per discussion with patient notes he snores and does have periods of gasping. Encourage strongly that he follow-up with primary care physician for sleep apnea assessment. We will closely monitor while inpatient. 4. Former tobacco use: Encouraged continued tobacco cessation. 5. DVT prophylaxis: Per discretion of podiatry but recommend SCDs and if nonambulatory addition of chemoprophylaxis. Office Visits / Consults: [id number] IP Consult L3
--- NOTE | 2019-07-24 23:59 | PCM.HP.STD ---
Problem List (1) Ulcer of right foot with fat layer exposed Status: Acute (2) Diarrhea Status: Acute (3) Right foot infection Status: Acute (4) Former tobacco use Status: Resolved (5) Morbid obesity Status: Chronic History of Present Illness Date of Admission: 07/24/19 Chief Complaint: Right foot infection The patient is a 43 year old M with a right foot infection. He had a previous partial first metatarsal head and proximal phalanx base resection of the first metatarsal phalangeal joint and digital hammertoe correction performed on 06-11-[address] Benites. The surgery was performed for correction of forefoot deformities (hammertoe and hallux varus), chronic toe ulcer with recurrent infections and some minor delays in healing. He has been healing well in the outpatient setting. However, it is noted the incision site of concern was not previously fully healed. He reports he has been additionally active this past weekend and had significant redness and swelling to the right foot. He denies a specific foot trauma. He has been walking with both a surgical shoe and cam walker boot and is unaware if the strap was rubbing on this site due to his loss of feeling in his foot. He has been feeling fatigued and ill the past 1 to 1 1/2 days including diarrhea and abdominal discomfort. He also reports he has been sleeping more. He relates he had chills and felt like he had a fever. He denies measuring his temperature. He relates foot redness and denies odor. He relates he first noticed the drainage today. He has lack of sensation to his foot and denies foot pain at this time. Past Medical History Past Medical History (Chronic Problems): Chronic Problems (Last Updated 04/30/19 @ 10:52 by Adelia Ferrer) Morbid obesity (Chronic) Medical History: Medical History (Last Updated 04/30/19 @ 10:52 by Powerset) Fracture, ankle (Resolved) S82.899A Allergies No Known Allergies Allergy (Verified 07/24/19 20:53) Home Medications: Ambulatory Orders Medication Instructions Recorded NK 07/24/19 Surgical History: Surgical History (Last Updated 04/30/19 @ 11:02 by Adelia Ferrer) History of ankle surgery Z98.890 2011 - Fx ankle History of tonsillectomy Z90.89 Hx of foot surgery Z98.890 2017 - Repair Tendon Surgical History: - - Tonsillectomy, bilateral foot surgery, recent right foot surgery. Psychiatric History: No pertinent psych hx Lives: Spouse/ Significant Other Smoking Status: Former smoker - Patient quit cigarette tobacco usage 15 years prior to current presentation with prior to this 1 pack/day since he had been a teenager with approximate 44-csra-duta history per his report. Tobacco Use: Non-smoker Alcohol: Occasional - Social Drugs: None - *Family History Maternal Family History: Family History (Last Updated 04/30/19 @ 10:54 by Adelia Ferrer) Father Colon cancer Diabetes Skin cancer Mother Hypertension History Items: Hypertension Paternal Family History: Family History (Last Updated 04/30/19 @ 10:54 by Adelia Ferrer) Father Colon cancer Diabetes Skin cancer Mother Hypertension History Items: Cancer - Colon cancer., Diabetes Review of Systems Constitutional: Reports: Fever, Malaise, Fatigue. Denies: Chills Eyes: Denies: Vision Change HEENT: Denies: Difficulty Hearing, Nasal Congestion, Sinus Drainage, Sore Throat, Visual Changes Cardiovascular: Reports: Edema. Denies: Chest Pain, Claudication, Orthopnea Respiratory: Denies: Cough, Shortness of Breath Gastrointestinal: Reports: Abdominal Pain, Diarrhea. Denies: Hematochezia, Nausea, Melena, Vomiting Genitourinary: Reports: Frequency. Denies: Dysuria, Incontinence Musculoskeletal: Denies: Foot Pain, Joint Tenderness, Leg Pain Skin: Reports: Skin Changes, Wounds Neurological: Reports: Numbness. Denies: Confusion Endocrine: Reports: Polydipsia, Polyuria Hematologic/ Lymphatic: Denies: Easy Bruising, Hx of blood clot VTE Information - Inpt Only VTE Present on Admission: No VTE Mechan Device Prophylaxis: SCD's VTE Pharm Prophylaxis ordered?: Yes Patient Problems: Active and Suspected Problems (Last Updated 04/30/19 @ 10:52 by Adelia Ferrer) Right foot infection (Acute) ASH (obstructive sleep apnea) (Suspected) Ulcer of right foot with fat layer exposed (Acute) Diarrhea (Acute) - Physical Exam Vitals/I&O's: Vital Signs Temp Pulse Resp BP Pulse Ox 98 F 80 20 H 115/71 96 07/24/19 23:58 07/24/19 23:58 07/24/19 23:58 07/24/19 23:58 07/24/19 23:58 Oxygen Delivery Method Room Air Weight: 152.407 kg Body Mass Index (BMI) 42.0 General: Alert, Oriented x3, Cooperative, No apparent distress HEENT: Atraumatic, EOMI, Normocephalic Oral: Moist Mucosa Neck: Supple, Trachea Midline Lungs: Clear to auscultation, Normal air movement, No wheeze Cardiovascular: Regular rate, Regular Rhythm Abdomen: Soft, Non Tender, Obese Extremities: No clubbing, No cyanosis, Capillary Refill Less than 3 Seconds - All digits bilateral lower extremities, No Calf Tenderness - Negative Francisco and Joshi sign bilateral lower extremity, Edema - Right foot, Peripheral Pulses Normal - 2 out of 4 PT and DP pulses bilateral. Hair noted to foot bilateral, - - No pain with ulcer manipulation of right foot. All 4 extremity movement actively noted without nakita weakness Skin: Ulcer/ Wound - There is a skin discontinuity to the dorsal first metatarsal phalangeal joint at the initial incision site. This is fibrous and granular. There is surrounding erythema that extends approximately over 3 cm in each direction. There is no distinct abscess, bogginess, or fluctuance on palpation. There is no purulence on expression. There is no additional streaking to the ankle or leg. There is no interdigital maceration. There is no deep probing. Musculoskeletal: No Tenderness to Palpation of Joints or Extremities, No Muscle Wasting, - - Active range of motion toes. Compartments soft to palpate right lower extremity Lymphatic: - - No cervical, supraclavicular, or popliteal adenopathy Neurological: Cranial nerves II-XII grossly intact, Neuro grossly intact, Muscle tone normal, - - Lack of epicritic sensation light touch is consistent with neuropathy of the lower extremity Psych/Mental Status: Normal Affect, Appropriate Laboratory Results 07/24/19 21:38: WBC 12.9 H, RBC 5.26, Hgb 14.9, Hct 46.2, MCV 87.8, MCH 28.3, MCHC 32.3, RDW Std Deviation 43.0, RDW Coeff of Gabriella 13.5, Plt Count 214, MPV 9.3, Immature Gran % (Auto) 0.400, Neut % (Auto) 65.8, Lymph % (Auto) 25.2, [place] % (Auto) 7.1, Eos % (Auto) 1.3, Baso % (Auto) 0.2, Absolute Neuts (auto) 8.5 H, Absolute Lymphs (auto) 3.25, Nucleated RBC % 0 07/24/19 21:38: PT 14.9, INR 1.2, APTT 33.3 07/24/19 21:38: Sodium 142, Potassium 3.7, Chloride 107, Carbon Dioxide 29.0, Anion Gap 6, BUN 22 H, Creatinine 0.79, Estim Creat Clear Calc 144.10, Est GFR (MDRD) Af Amer 138, Est GFR (MDRD) Non-Af 114, BUN/Creatinine Ratio 28.0 H, Glucose 100, Calcium 8.8, Total Bilirubin 0.60, AST 15, ALT 48, Alkaline Phosphatase 94, Total Protein 7.0, Albumin 3.5, Globulin 3.5, Albumin/Globulin Ratio 1.0 07/24/19 21:38: Lactic Acid 0.8 07/24/19 21:38: ESR Pending 07/24/19 21:38: C-React Prot Ext Range 38.00 H Current Medications Albuterol Sulfate (Ventolin Aerosols) 2.5 mg INHALATION Q2H PRN PRN PRN Reason: Dyspnea, wheezing Docusate Sodium (Colace) 100 mg PO BID PRN PRN PRN Reason: Constipation Enoxaparin Sodium (Lovenox) 40 mg SC DAILY@0600 ERIN Hydralazine HCl (Apresoline Iv) 10 mg IV Q4H PRN PRN PRN Reason: SBP > 160 Vancomycin HCl 2,000 mg/ (Sodium Chloride) 540 mls @ 250 mls/hr IV X1 ONE Stop: 07/25/19 01:19 Sodium Chloride () 250 mls @ 15 mls/hr IV .[id number] PRN PRN Reason: Additional IVPB Infusion Last Admin: 07/24/19 23:23 Dose: 15 mls/hr Documented by: Sodium Chloride () 1,000 mls @ 100 mls/hr IV .Q10H ERIN Piperacillin Sod/Tazobactam (Sod 3.375 gm/ Sodium Chloride) 50 mls @ 12.5 mls/hr IV Q8 [facility]IN Ondansetron HCl (Zofran) 4 mg IV Q8H PRN PRN PRN Reason: NAUSEA/VOMITING Oxycodone HCl (Oxyir) 5 mg PO Q6H PRN PRN PRN Reason: Pain Score 6-11/26 Assessment/Plan All Active Problems (Last Updated 04/30/19 @ 10:52 by Adelia Ferrer) Right foot infection (Acute) Former tobacco use (Resolved) Ulcer of right foot with fat layer exposed (Acute) Diarrhea (Acute) Fracture, ankle (Resolved) Right foot infection Status post arthroplasty of the first metatarsal phalangeal joint right foot on 06-11-2019 Rule out osteomyelitis Abdominal discomfort /diarrhea Obesity I reviewed and discussed his case. It is noted he is afebrile and his vital signs are stable. He does have leukocytosis (12.9). Lactic acid was 0.8. I also recommend additional inflammatory lab work including ESR and CRP which were ordered. Serial labs will be monitored. His CT scan of the right foot that was obtained while he was in the emergency room was reviewed including images and the report. There was no visualized abscess. Per radiologist there is concern of osteomyelitis. I reviewed the resected margin and the cortices appear to be intact. I recommend ordering a plain x-ray to compare to prior x-rays to look for osseous destruction or other evidence of osteomyelitis. There is no soft tissue emphysema or foreign body seen on the CT scan either. He was started on antibiotics in the emergency room. Due to the extent of erythema and his leukocytosis, I recommend admission for IV antibiotics. Zosyn was ordered. Blood cultures were obtained and these results are pending. Aerobic, anaerobic, MRSA PCR right foot wound cultures were obtained and these results are pending. Addition of vancomycin or other antiobiotics will be considered pending culture results and mrsa pcr. Pending his lab results and clinical progression, additional imaging such as a foot MRI or potential surgical drainage will be considered. There are no other gross abnormalities with CBC and CMP. I do recommend additional hemoglobin A1c for diabetes screening. He denies this was checked in the past and reports current polydipsia, polyuria, neuropathy, and delays in wound healing. He is low moderate to moderate DVT risk given his reduced activity and treatment with IV antibiotics for current infection. Therefore, I recommend SCD and Lovenox for DVT prophylaxis. Dr. Manley, hospitalist, was asked to be in consultation for work-up of abdominal discomfort and diarrhea. IV fluids stared. Input will be greatly appreciated. This case was discussed with ER physician. Please not hesitate to call if you have any questions. Code status: FULL Tari Terrell DPM, [facility] [phone]
[2019-07-25] VITALS (8 sets, daily range): BP systolic 98–132; BP diastolic 65–89; PULSE 64–84; RESP 14–18; TEMP 36.3–37.2; O2SAT 96–99; BMI 43.3; BMI 43.4
[2019-07-25 00:14] LABS: Magnesium 2.2 mg/dL (1.6-2.6)
[2019-07-25 00:55] LABS: Erythrocyte Sedimentation Rate 15 mm/hr (0-15)
[2019-07-25] MEDS: Zolpidem Tartrate 5 MG Tablet PO (01:14)
[2019-07-25] MEDS: Acetaminophen 325 MG Tablet 650 MG PO (01:14)
[2019-07-25] MEDS: 0.9% Normal Saline 1,000 ML 100 ML IV ×3 (01:15→20:51)
[2019-07-25 04:58] LABS: M R Staph aureus DNA By PCR Negative (Negative); Probe Check PASS; Specimen Processing Control PASS; Staph aureus DNA By PCR POSITIVE (Negative)
[2019-07-25] MEDS: Enoxaparin 40 MG/0.4 ML Syringe SC (05:55)
[2019-07-25 06:23] LABS: Absolute Lymphocyte Count 2.25 X10^3/uL (0.83-4.51); Absolute Neutrophil Count 5.6 X10^3/uL (2.0-7.7); Basophil# 0.03 X10^3/uL; Basophil% 0.3 % (0-1); Eosinophil# 0.16 X10^3/uL; Eosinophils% 1.8 % (0-5); Hemoglobin 13.7 g/dL (13.0-16.5); Lymphocyte # 2.25 X10^3/ul (4.0); Lymphocyte % 25.1 % (19-41); Mean Corp Hgb Conc 32.6 g/dL (32-36); Mean Corpuscular Hgb 28.8 pg (27.0-32.0); Mean Corpuscular Volume 88.2 fL (80-94); Mean Platelet Vol. 9.7 fl (6.2-12.0); Monocyte# 0.85 X10^3/uL; Monocyte% 9.5 % (0-10); NRBC Flagged by Analyzer 0 % (0-5); Neutrophil # 5.63 X10^3/uL (2.7-7.7); Platelet Count 172 K/mm3 (150-450); RBC Distribution Width CV 13.7 % (11.6-14.6); RBC Distribution Width SD 43.9 fl (35.1-43.9); Red Blood Count 4.76 M/mm3 (4.6-6.2)
[2019-07-25 06:31] LABS: AST(SGOT) 22 U/L (15-37); Alanine Aminotransfer ALT/SGPT 39 U/L (16-61); Albumin, Serum 3.1 g/dL (3.2-5.0); Alkaline Phosphatase 80 U/L (45-117); Anion Gap 4 (5-15); BUN 22 mg/dL (7-18); BUN/Creat Ratio 36.6 RATIO (10-20); Calcium,Total 8.4 mg/dL (8.5-10.1); Chloride 109 mmol/L (98-107); EST Glomerular Filtration Rate 155 mL/min (>60); Est Glom Filt Rate - Afr Amer 188 mL/min (>60); Estimated Creatinine Clearance 189.73 ml/min; Globulin 3.2 g/dL (2.2-4.2); Glucose 101 mg/dL (74-106); Potassium 4.1 mmol/L (3.5-5.1); Protein, Total 6.3 g/dL (6.4-8.2); Sodium Level 140 mmol/L (136-145)
--- NOTE | 2019-07-25 07:28 | PN_ITS ---
Patient Problems: Active and Suspected Problems (Last Updated 04/30/19 @ 10:52 by Adelia Ferrer) Right foot infection (Acute) ASH (obstructive sleep apnea) (Suspected) Ulcer of right foot with fat layer exposed (Acute) Diarrhea (Acute) Postoperative wound cellulitis (Acute) Morbid obesity (Acute) Diarrhea (Acute) Reason for Visit: Right foot infection Subjective: Patient is a 43 year-old gentleman presenting with right foot infection. Patient had previously undergoneprevious partial first metatarsal head and proximal phalanx base resection of the first metatarsal phalangeal joint and digital hammertoe correction performed on 06-11-[address] Benites. The surgery was performed for correction of forefoot deformities (hammertoe and hallux varus), chronic toe ulcer with recurrent infections and some minor delays in healing Objective: GENERAL: cooperative HEENT: Atraumatic; EYES; Anicteric, Normal Conjunctiva NECK; supple, normal thyroid, RESPIRATORY: Diminished to auscultation CARDIOVASCULAR: Regular S1 S2, GI: soft, normoactive bowel sounds, : No Renal angle tenderness; EXTREMITIES: No edema, no clubbing, MUSCULOSKELETAL: R Foot in surgical dressing NEURO: Awake; no lateralizing signs. SKIN: No Rash PSYCH; Flat affect Vitals/I&O's: Vital Signs Temp Pulse Resp BP Pulse Ox 97.4 F L 76 16 107/70 97 07/25/19 05:52 07/25/19 05:52 07/25/19 05:52 07/25/19 05:52 07/25/19 05:52 Oxygen Delivery Method Room Air Weight: 157.4 kg Body Mass Index (BMI) 43.3 Intake and Output for Last 24 Hours 07/23/19 07/24/19 07/25/19 23:59 23:59 23:59 Intake Total 1039.92 / 1039.92 Balance 1039.92 / 1039.92 Laboratory Results 07/24/19 21:38: WBC 12.9 H, RBC 5.26, Hgb 14.9, Hct 46.2, MCV 87.8, MCH 28.3, MCHC 32.3, RDW Std Deviation 43.0, RDW Coeff of Gabriella 13.5, Plt Count 214, MPV 9.3, Immature Gran % (Auto) 0.400, Neut % (Auto) 65.8, Lymph % (Auto) 25.2, [place] % (Auto) 7.1, Eos % (Auto) 1.3, Baso % (Auto) 0.2, Absolute Neuts (auto) 8.5 H, Absolute Lymphs (auto) 3.25, Nucleated RBC % 0 07/24/19 21:38: PT 14.9, INR 1.2, APTT 33.3 07/24/19 21:38: Sodium 142, Potassium 3.7, Chloride 107, Carbon Dioxide 29.0, Anion Gap 6, BUN 22 H, Creatinine 0.79, Estim Creat Clear Calc 144.10, Est GFR (MDRD) Af Amer 138, Est GFR (MDRD) Non-Af 114, BUN/Creatinine Ratio 28.0 H, Glucose 100, Calcium 8.8, Total Bilirubin 0.60, AST 15, ALT 48, Alkaline Phosphatase 94, Total Protein 7.0, Albumin 3.5, Globulin 3.5, Albumin/Globulin Ratio 1.0 07/24/19 21:38: Lactic Acid 0.8 07/24/19 21:38: ESR 15 07/24/19 21:38: C-React Prot Ext Range 38.00 H 07/24/19 21:38: Magnesium 2.2 07/25/19 00:00: S.aureus Protein A PCR POSITIVE H, MRSA (PCR) Negative 07/25/19 05:22: WBC 9.0, RBC 4.76, Hgb 13.7, Hct 42.0, MCV 88.2, MCH 28.8, MCHC 32.6, RDW Std Deviation 43.9, RDW Coeff of Gabriella 13.7, Plt Count 172, MPV 9.7, Immature Gran % (Auto) 0.300, Neut % (Auto) 63.0, Lymph % (Auto) 25.1, [place] % (Auto) 9.5, Eos % (Auto) 1.8, Baso % (Auto) 0.3, Absolute Neuts (auto) 5.6, Absolute Lymphs (auto) 2.25, Nucleated RBC % 0 07/25/19 05:22: Sodium 140, Potassium 4.1, Chloride 109 H, Carbon Dioxide 27.0, Anion Gap 4 L, BUN 22 H, Creatinine 0.60 L, Estim Creat Clear Calc 189.73, Est GFR (MDRD) Af Amer 188, Est GFR (MDRD) Non-Af 155, BUN/Creatinine Ratio 36.6 H, Glucose 101, Calcium 8.4 L, Total Bilirubin 0.50, AST 22, ALT 39, Alkaline Phosphatase 80, Total Protein 6.3 L, Albumin 3.1 L, Globulin 3.2, Albumin/Globulin Ratio 1.0 07/25/19 05:22: Hemoglobin A1c 5.0 Current Medications Acetaminophen (Tylenol) 650 mg PO Q6H PRN PRN PRN Reason: Pain Score 1-3 /Temp>100.7 Last Admin: 07/25/19 01:14 Dose: 650 mg Documented by: Albuterol Sulfate (Ventolin Aerosols) 2.5 mg INHALATION Q2H PRN PRN PRN Reason: Dyspnea, wheezing Docusate Sodium (Colace) 100 mg PO BID PRN PRN PRN Reason: Constipation Enoxaparin Sodium (Lovenox) 40 mg SC DAILY@0600 [facility] Last Admin: 07/25/19 05:55 Dose: 40 mg Documented by: Hydralazine HCl (Apresoline Iv) 10 mg IV Q4H PRN PRN PRN Reason: SBP > 160 Sodium Chloride () 250 mls @ 15 mls/hr IV .[id number] PRN PRN Reason: Additional IVPB Infusion Last Infusion: 07/25/19 01:16 Dose: Infused Documented by: Sodium Chloride () 1,000 mls @ 100 mls/hr IV .Q10H [facility] Last Infusion: 07/25/19 02:17 Dose: 100 mls/hr Documented by: Piperacillin Sod/Tazobactam (Sod 3.375 gm/ Sodium Chloride) 50 mls @ 12.5 mls/hr IV Q8 [facility] Last Admin: 07/25/19 05:53 Dose: 12.5 mls/hr Documented by: Nutritional Formula (Lactose Free) (Ensure Enlive) 120 ml PO 4X/DAY [facility] Ondansetron HCl (Zofran) 4 mg IV Q8H PRN PRN PRN Reason: NAUSEA/VOMITING Oxycodone HCl (Oxyir) 5 mg PO Q6H PRN PRN PRN Reason: Pain Score 6-10/10 Sodium Chloride () 10 - 40 ml IV UD PRN PRN Reason: SALINE FLUSH Zolpidem Tartrate (Ambien (Generic)) 5 mg PO QHS PRN PRN PRN Reason: INS Last Admin: 07/25/19 01:14 Dose: 5 mg Documented by: STROKE Vital Signs/Narrative: Vital Signs Temp Pulse Resp BP Pulse Ox 07/25/19 05:52 97.4 F L 76 16 107/70 97 Medical Necessity - Tobacco Use Smoking Status: Former smoker Tobacco Use: Non-smoker Assessment/Plan All Active Problems (Last Updated 04/30/19 @ 10:52 by Adelia Ferrer) Right foot infection (Acute) Former tobacco use (Resolved) Ulcer of right foot with fat layer exposed (Acute) Diarrhea (Acute) Postoperative wound cellulitis (Acute) Morbid obesity (Acute) Diarrhea (Acute) Fracture, ankle (Resolved) Patient is a 43 year-old gentleman presenting with right foot infection. Patient had previously undergone previous partial first metatarsal head and proximal phalanx base resection of the first metatarsal phalangeal joint and digital hammertoe correction performed on 06-11-[address] Benites. The surgery was performed for correction of forefoot deformities (hammertoe and hallux varus), chronic toe ulcer with recurrent infections and some minor delays in healing 1. Right lower extremity foot infection ?Patient had previously undergone previous partial first metatarsal head and proximal phalanx base resection of the first metatarsal phalangeal joint and digital hammertoe correction performed on 06-11-[address] Benites. The surgery was performed for correction of forefoot deformities (hammertoe and hallux varus), chronic toe ulcer with recurrent infections and some minor delays in healing. CT obtained on admission was concerning for osteomyelitis admitted to regular nursing floor by podiatry started on broad-spectrum antibiotic therapy 2. Morbid obesity with BMI of 43.4 ?Weight loss advised 3. Suspected obstructive sleep apnea? ?This was discussed with patient about the need to undergo sleep study as outpatient 4. DVT prophylaxis - On enoxaparin Active Medications Acetaminophen (Tylenol) 650 mg PO Q6H PRN PRN PRN Reason: Pain Score 1-3 /Temp>100.7 Last Admin: 07/25/19 01:14 Dose: 650 mg Documented by: Albuterol Sulfate (Ventolin Aerosols) 2.5 mg INHALATION Q2H PRN PRN PRN Reason: Dyspnea, wheezing Docusate Sodium (Colace) 100 mg PO BID PRN PRN PRN Reason: Constipation Enoxaparin Sodium (Lovenox) 40 mg SC DAILY@0600 [facility] Last Admin: 07/25/19 05:55 Dose: 40 mg Documented by: Hydralazine HCl (Apresoline Iv) 10 mg IV Q4H PRN PRN PRN Reason: SBP > 160 Sodium Chloride () 250 mls @ 15 mls/hr IV .[id number] PRN PRN Reason: Additional IVPB Infusion Last Infusion: 07/25/19 01:16 Dose: Infused Documented by: Sodium Chloride () 1,000 mls @ 100 mls/hr IV .Q10H ERIN Last Infusion: 07/25/19 02:17 Dose: 100 mls/hr Documented by: Piperacillin Sod/Tazobactam (Sod 3.375 gm/ Sodium Chloride) 50 mls @ 12.5 mls/hr IV Q8 ERIN Last Admin: 07/25/19 05:53 Dose: 12.5 mls/hr Documented by: Nutritional Formula (Lactose Free) (Ensure Enlive) 120 ml PO 4X/DAY [facility] Ondansetron HCl (Zofran) 4 mg IV Q8H PRN PRN PRN Reason: NAUSEA/VOMITING Oxycodone HCl (Oxyir) 5 mg PO Q6H PRN PRN PRN Reason: Pain Score 6-10/10 Sodium Chloride () 10 - 40 ml IV UD PRN PRN Reason: SALINE FLUSH Zolpidem Tartrate (Ambien (Generic)) 5 mg PO QHS PRN PRN PRN Reason: INS Last Admin: 07/25/19 01:14 Dose: 5 mg Documented by: Inpatient E&M: [id number] [facility] L2
--- NOTE | 2019-07-25 09:04 | PN_ITS ---
Patient Problems: Active and Suspected Problems (Last Updated 04/30/19 @ 10:52 by Adelia Ferrer) Right foot infection (Acute) ASH (obstructive sleep apnea) (Suspected) Ulcer of right foot with fat layer exposed (Acute) Diarrhea (Acute) Postoperative wound cellulitis (Acute) Morbid obesity (Acute) Diarrhea (Acute) Subjective: This 43-year-old male was seen bedside this morning for right foot infection. He denies fever, chill, nausea, vomiting. He relates his foot is starting to feel better and has less fatigue. - Physical Exam Vitals/I&O's: Vital Signs Temp Pulse Resp BP Pulse Ox 97.4 F L 76 16 107/70 96 07/25/19 05:52 07/25/19 05:52 07/25/19 05:52 07/25/19 05:52 07/25/19 07:00 Oxygen Delivery Method Room Air Weight: 157.4 kg Body Mass Index (BMI) 43.3 Intake and Output for Last 24 Hours 07/23/19 07/24/19 07/25/19 23:59 23:59 23:59 Intake Total 1039.92 / 1039.92 Balance 1039.92 / 1039.92 General: Alert, Oriented x3, Cooperative HEENT: Atraumatic Extremities: No cyanosis, Capillary Refill Less than 3 Seconds, No Calf Tenderness, Edema - Decreased right foot, Peripheral Pulses Normal Skin: Ulcer/ Wound - Skin discontinuity dorsal medial foot at prior surgical site measures 3 x 0.9 x 0.1 cm pre-debridement and 3.1 x 1.0 x 0.1 cm post debridement. The base is granular and fibrous. There is no deep probing, necrosis, eschar. There is no purulence on expression. The erythema intensity and location decreased compared to yesterday. There is no odor. Musculoskeletal: No Tenderness to Palpation of Joints or Extremities, - - Rectus hallux. Active range of motion digits right foot. Negative Francisco and Joshi sign bilateral. No bogginess or fluctuance on palpation to the right foot Neurological: - - Lack of full epicritic sensation light touch is consistent with neuropathy status Psych/Mental Status: Normal Affect, Appropriate Laboratory Results 07/24/19 21:38: WBC 12.9 H, RBC 5.26, Hgb 14.9, Hct 46.2, MCV 87.8, MCH 28.3, MCHC 32.3, RDW Std Deviation 43.0, RDW Coeff of Gabriella 13.5, Plt Count 214, MPV 9.3, Immature Gran % (Auto) 0.400, Neut % (Auto) 65.8, Lymph % (Auto) 25.2, Desha % (Auto) 7.1, Eos % (Auto) 1.3, Baso % (Auto) 0.2, Absolute Neuts (auto) 8.5 H, Absolute Lymphs (auto) 3.25, Nucleated RBC % 0 07/24/19 21:38: PT 14.9, INR 1.2, APTT 33.3 07/24/19 21:38: Sodium 142, Potassium 3.7, Chloride 107, Carbon Dioxide 29.0, Anion Gap 6, BUN 22 H, Creatinine 0.79, Estim Creat Clear Calc 144.10, Est GFR (MDRD) Af Amer 138, Est GFR (MDRD) Non-Af 114, BUN/Creatinine Ratio 28.0 H, Glucose 100, Calcium 8.8, Total Bilirubin 0.60, AST 15, ALT 48, Alkaline Phosphatase 94, Total Protein 7.0, Albumin 3.5, Globulin 3.5, Albumin/Globulin Ratio 1.0 07/24/19 21:38: Lactic Acid 0.8 07/24/19 21:38: ESR 15 07/24/19 21:38: C-React Prot Ext Range 38.00 H 07/24/19 21:38: Magnesium 2.2 07/25/19 00:00: S.aureus Protein A PCR POSITIVE H, MRSA (PCR) Negative 07/25/19 05:22: WBC 9.0, RBC 4.76, Hgb 13.7, Hct 42.0, MCV 88.2, MCH 28.8, MCHC 32.6, RDW Std Deviation 43.9, RDW Coeff of Gabriella 13.7, Plt Count 172, MPV 9.7, Immature Gran % (Auto) 0.300, Neut % (Auto) 63.0, Lymph % (Auto) 25.1, Desha % (Auto) 9.5, Eos % (Auto) 1.8, Baso % (Auto) 0.3, Absolute Neuts (auto) 5.6, Absolute Lymphs (auto) 2.25, Nucleated RBC % 0 07/25/19 05:22: Sodium 140, Potassium 4.1, Chloride 109 H, Carbon Dioxide 27.0, Anion Gap 4 L, BUN 22 H, Creatinine 0.60 L, Estim Creat Clear Calc 189.73, Est GFR (MDRD) Af Amer 188, Est GFR (MDRD) Non-Af 155, BUN/Creatinine Ratio 36.6 H, Glucose 101, Calcium 8.4 L, Total Bilirubin 0.50, AST 22, ALT 39, Alkaline Phosphatase 80, Total Protein 6.3 L, Albumin 3.1 L, Globulin 3.2, Albumin/Globulin Ratio 1.0 07/25/19 05:22: Hemoglobin A1c 5.0 Current Medications Acetaminophen (Tylenol) 650 mg PO Q6H PRN PRN PRN Reason: Pain Score 1-3 /Temp>100.7 Last Admin: 07/25/19 01:14 Dose: 650 mg Documented by: Albuterol Sulfate (Ventolin Aerosols) 2.5 mg INHALATION Q2H PRN PRN PRN Reason: Dyspnea, wheezing Docusate Sodium (Colace) 100 mg PO BID PRN PRN PRN Reason: Constipation Enoxaparin Sodium (Lovenox) 40 mg SC DAILY@0600 [facility] [place] Last Admin: 07/25/19 05:55 Dose: 40 mg Documented by: Hydralazine HCl (Apresoline Iv) 10 mg IV Q4H PRN PRN PRN Reason: SBP > 160 Sodium Chloride () 250 mls @ 15 mls/hr IV .[id number] PRN PRN Reason: Additional IVPB Infusion Last Infusion: 07/25/19 01:16 Dose: Infused Documented by: Sodium Chloride () 1,000 mls @ 100 mls/hr IV .Q10H [facility] [place] Last Infusion: 07/25/19 02:17 Dose: 100 mls/hr Documented by: Piperacillin Sod/Tazobactam (Sod 3.375 gm/ Sodium Chloride) 50 mls @ 12.5 mls/hr IV Q8 [facility] [place] Last Admin: 07/25/19 05:53 Dose: 12.5 mls/hr Documented by: Nutritional Formula (Lactose Free) (Ensure Enlive) 120 ml PO 4X/DAY [facility] [place] Last Admin: 07/25/19 08:59 Dose: 120 ml Documented by: Ondansetron HCl (Zofran) 4 mg IV Q8H PRN PRN PRN Reason: NAUSEA/VOMITING Oxycodone HCl (Oxyir) 5 mg PO Q6H PRN PRN PRN Reason: Pain Score 6-10/10 Sodium Chloride () 10 - 40 ml IV UD PRN PRN Reason: SALINE FLUSH Zolpidem Tartrate (Ambien (Generic)) 5 mg PO QHS PRN PRN PRN Reason: INS Last Admin: 07/25/19 01:14 Dose: 5 mg Documented by: Medical Necessity - Tobacco Use Smoking Status: Former smoker Tobacco Use: Non-smoker Assessment/Plan All Active Problems (Last Updated 04/30/19 @ 10:52 by Adelia Ferrer) Right foot infection (Acute) Former tobacco use (Resolved) Ulcer of right foot with fat layer exposed (Acute) Diarrhea (Acute) Postoperative wound cellulitis (Acute) Morbid obesity (Acute) Diarrhea (Acute) Fracture, ankle (Resolved) Right foot cellulitis Ulcer right foot with fat layer exposed Status post arthroplasty of the first metatarsal phalangeal joint right foot on 06-11-2019 Loose stool Obesity Sleep apnea I reviewed and discussed his case. It is noted he is afebrile and his vital signs are stable. His leukocytosis has resolved (white blood cell count 9). ESR was 14 and C-reactive protein was elevated at 38. Hemoglobin A1c was 5%. His x-rays were reviewed without new acute osseous destruction or osteolysis. These findings are consistent with his recent surgical intervention. His CT scan did not demonstrate any abscess, soft tissue emphysema, or foreign body. There was some calcific fragmentation and per radiologist there is concern of osteomyelitis however this looks consistent with his recent surgical intervention. We discussed continuing with antibiotic and wound care versus other surgical interventions. I do not recommend drainage or additional bone biopsy at this time. He is demonstrating initial response to Zosyn. So far his wound cultures are MRSA negative. Discharge will be considered tomorrow with transition to oral antibiotics if he continues to demonstrate improvement on his current plan. Surgical intervention is not planned at this time. Sharp excisional debridement was performed today after verbal consent with a 15 blade scalpel. This was performed to excise devitalized subcutaneous tissue, biofilm, slough, and fibrous tissue. He was able to tolerate this without local anesthetic due to his neuropathy. Pressure was applied to maintain hemostasis. A dressing consisting of Aquacel Ag, gauze, and Tolu with Dandre wrap was applied. To elevate right lower extremity. To maintain a heel weightbearing status with a surgical shoe in place. Medical management with hospitalist is appreciated. Stool panel ordered for reported diarrhea. Weight loss advised. Sleep study has been recommended in the outpatient setting. Continue on DVT prophylaxis of SCD and enoxaparin. Tari Terrell DPM, FACF[facility] [phone]
[2019-07-26 03:15] VITALS: BP 106/52; PULSE 68; RESP 16; TEMP 36.6; O2SAT 98
[2019-07-26] MEDS: 0.9% Normal Saline 1,000 ML 100 ML IV ×2 (04:47→14:48)
[2019-07-26] MEDS: Enoxaparin 40 MG/0.4 ML Syringe SC (04:49)
[2019-07-26 07:31] VITALS: PULSE 70; O2SAT 98
[2019-07-26 07:32] VITALS: O2SAT 98
[2019-07-26 09:15] VITALS: BP 102/64; PULSE 68; RESP 16; TEMP 36.7; O2SAT 98
--- NOTE | 2019-07-26 12:01 | CASEMGMT ---
RN CM Assessment Note Presentation: R great toe redness, warmth. Diagnosis: Post op R foot infection Intro role of CM to patient in room. Pt is awake, alert and able to participate in assessment. States he does not have concerns re: care of foot @ home. Dr. Benites to see patient today. RN CM let pt know if dc needs arise, CM would assist with planning. PMH: R foot surgery by Dr. Benites in May PCP: Dr. Brar Specialists: Dr. Benites Insurance: [employer] [facility] Prescription Benefit: yes LNOK: , Candice [place] Living Arrangements: Lives independently with . Tranportation: drives or can drive DME: not using DME, was using boot prior to admission. Has crutches if needed. HHC: none SNF: none Patient DC Goals: Home DC Plan: Anticipate Home with po antibiotics and dressing chages which pt/ can complete with teaching. CM available for discharge planning coordination. Contact CM for any concerns/needs that may arise. Jaswinder DO RN ACM
--- NOTE | 2019-07-26 12:48 | CHAPLAIN ---
Type of Pastoral Visit _x__ Initial Visit ___ Follow-up Visit ___ On-call Visit ___ General Patient Visit ___ Spiritual Assessment ___ Family Conference ___ Bereavement ___ Rapid Response ___ Code Blue ___ Other (describe below) Pastoral Care Referral From _x__ Patient ___ Family ___ Nurse ___ Physician ___ Public Health Technologist ___ Policy Officer ___ Other (describe below) Sacrament/Intervention _x__ Active listening ___ Anointing ___ Confucianism ___ Bereavement ___ Communion ___ Estela exploration ___ ___ Life review _x__ Prayer ___ Reconciliation ___ Sacrament of Sick _x__ Supportive presence ___ Wedding ___ Other (describe below) Pastoral Comments patient reports improvement; pt speaks of being from family during this time; pt has local restorationist for support; prayer welcomed
--- NOTE | 2019-07-26 13:17 | MRI_ITS ---
STUDY: MRI RIGHT FOREFOOT WITHOUT CONTRAST REASON FOR EXAM: Male, 43 years old. INFECTION RT MEDIAL FOREFOOT -- surgery 05/2019 for tendon repair with hardware , healed until 4 weeks ago now swollen , red , pain big toe ,1st MT TECHNIQUE: Standardized fat and water weighted pulse sequences were obtained in all 3 orthogonal planes. COMPARISON: X-ray July 24, 2019 FINDINGS: Postoperative changes with resection at the metatarsophalangeal joint of the hallux. There are tracks from screw that has been removed from the first digit. There is fluid in the residual space. There is marrow edema with T2 signal hyperintensity of the shaft and distal first metatarsal and the phalanges of the first digit, series 4 images 08/16 through 12/16. Normal second through fifth metatarsophalangeal (MTP) joints. There is screws fusing the interphalangeal joints of the second through fourth toes. There is resection of the head of the fifth proximal phalanx. There is marrow edema of the residual phalanges of the fifth toe. Normal first through fourth intermetatarsal spaces. Normal flexor and extensor tendons of the second through fifth toes. There is diffuse atrophy of the intrinsic muscles of the forefoot consistent with a peripheral neuropathy. There is soft tissue swelling of the first toe with defect consistent with ulcer or wound. MRI/Lower Ext/No Jt/w/o IMPRESSION: Postoperative changes. 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 Fluid in the surgical space of the resected first MTP joint suggesting abscess. Edema of the phalanges of the fifth toe consistent with osteomyelitis. Electronically Signed: Leodan Travis MD at 21:37 EDT , Service support ,
--- NOTE | 2019-07-26 13:22 | PCM.PROGNOTE ---
Patient Problems: Active and Suspected Problems (Last Updated 04/30/19 @ 10:52 by Adelia Ferrer) Right foot infection (Acute) ASH (obstructive sleep apnea) (Suspected) Ulcer of right foot with fat layer exposed (Acute) Diarrhea (Acute) Postoperative wound cellulitis (Acute) Morbid obesity (Acute) Diarrhea (Acute) Subjective: Patient was seen today for follow up on right foot. He is resting comfortably in bed, no complaints of fever, chills, nausea or vomiting. He has some tenderness to the foot (1st MTPJ area) with touch, otherwise no pain. He relates otherwise he is feeling good. - Physical Exam Vitals/I&O's: Vital Signs Temp Pulse Resp BP Pulse Ox 98.0 F 68 16 102/64 98 07/26/19 09:15 07/26/19 09:15 07/26/19 09:15 07/26/19 09:15 07/26/19 09:15 Oxygen Flow Rate (L/min) 0 Oxygen Delivery Method Room Air Weight: 157.4 kg Body Mass Index (BMI) 43.3 Intake and Output for Last 24 Hours 07/24/19 07/25/19 07/26/19 23:59 23:59 23:59 Intake Total 5101.58 / 5101.58 1443.33 / 1443.33 Output Total 700 / 700 600 / 600 Balance 4401.58 / 4401.58 843.33 / 843.33 General: Alert, Oriented x3, Cooperative, No apparent distress Extremities: Capillary Refill Less than 3 Seconds, No Calf Tenderness, - - Right foot dorsal 1st MTPJ incision site with ulceration down to subcutaneous tissue - it does appear improved with mostly granular tissue some fibrotic tissues is present, there is slight serous drainage, there is small ulceration to the base of the 1st to at the lateral aspect with granular tissue and no drainage and down to subcutaneous tissue layer - there is edema to the forefoot and residual erythema present overlying the 1st MTPJ and 1st intermetatarsal space; there is no fluctuance or crepitus, no maloder is present, no blistering. There is no probe to bone or exposed bone or joint. There is wound down to the subcutaneous tissue to the lateral 4th toe with granular tissue - no deep invovlement, no evidence of infection here. There is tenderness to palpation to the 1st MTPJ, no severe pain - right foot. CFT < 2 seconds to all toes, and no evidence of ischemia to the right foot. Psych/Mental Status: Normal Affect, Alert and oriented to time, place, person, mood and affect Microbiology Past 72 Hours 07/25/19 00:00 Wound - Aerobic & Anaerobic Swabs Gram Stain - Final 07/25/19 00:00 Wound - Aerobic & Anaerobic Swabs Wound Culture - Preliminary Streptococcus agalactiae (B) Staphylococcus aureus Coag Negative Staph Current Medications Acetaminophen (Tylenol) 650 mg PO Q6H PRN PRN PRN Reason: Pain Score 1-3 /Temp>100.7 Last Admin: 07/25/19 01:14 Dose: 650 mg Documented by: Albuterol Sulfate (Ventolin Aerosols) 2.5 mg INHALATION Q2H PRN PRN PRN Reason: Dyspnea, wheezing Docusate Sodium (Colace) 100 mg PO BID PRN PRN PRN Reason: Constipation Enoxaparin Sodium (Lovenox) 40 mg SC DAILY@0600 [facility] Last Admin: 07/26/19 04:49 Dose: 40 mg Documented by: Hydralazine HCl (Apresoline Iv) 10 mg IV Q4H PRN PRN PRN Reason: SBP > 160 Sodium Chloride () 250 mls @ 15 mls/hr IV .[id number] PRN PRN Reason: Additional IVPB Infusion Last Infusion: 07/25/19 01:16 Dose: Infused Documented by: Sodium Chloride () 1,000 mls @ 100 mls/hr IV .Q10H [facility] Last Admin: 07/26/19 04:47 Dose: 100 mls/hr Documented by: Piperacillin Sod/Tazobactam (Sod 3.375 gm/ Sodium Chloride) 50 mls @ 12.5 mls/hr IV Q8 [facility] Last Infusion: 07/26/19 08:47 Dose: Infused Documented by: Nutritional Formula (Abhijit - [place] Flavor) 1 packet PO BIDCM [facility] Last Admin: 07/26/19 07:48 Dose: 1 packet Documented by: Ondansetron HCl (Zofran) 4 mg IV Q8H PRN PRN PRN Reason: NAUSEA/VOMITING Oxycodone HCl (Oxyir) 5 mg PO Q6H PRN PRN PRN Reason: Pain Score 6-10/10 Sodium Chloride () 10 - 40 ml IV UD PRN PRN Reason: SALINE FLUSH Zolpidem Tartrate (Ambien (Generic)) 5 mg PO QHS PRN PRN PRN Reason: INS Last Admin: 07/25/19 01:14 Dose: 5 mg Documented by: Medical Necessity - Tobacco Use Smoking Status: Former smoker Tobacco Use: Non-smoker Assessment/Plan All Active Problems (Last Updated 04/30/19 @ 10:52 by Adelia Ferrer) Right foot infection (Acute) Former tobacco use (Resolved) Ulcer of right foot with fat layer exposed (Acute) Diarrhea (Acute) Postoperative wound cellulitis (Acute) Morbid obesity (Acute) Diarrhea (Acute) Fracture, ankle (Resolved) Right foot cellulitis Ulcer right foot with fat layer exposed Status post arthroplasty of the first metatarsal phalangeal joint right foot on 06-11-2019 Reviewed findings and diagnostic data. Foot checked. There is still concern about possible abscess although CT scan was negative for abscess on Friday. An MRI was ordered for further evaluation. Reviewed culture results, finals pending, patient is on Zosyn, given findings Dr. Albright was also consulted, I discussed case with Dr. Albright today. Continue with local wound care - aquacel Ag and gauze dressing changes - change daily.To elevate right lower extremity. To maintain a heel weightbearing status with a surgical shoe in place. Medical management with hospitalist is appreciated. Continue on DVT prophylaxis of SCD and enoxaparin.
[2019-07-26 15:15] VITALS: BP 102/54; PULSE 83; RESP 16; TEMP 36.6; O2SAT 97
--- NOTE | 2019-07-26 15:15 | PCM.HP.ID ---
Problem List (1) Right foot infection Status: Acute Reason for Consult: foot infection Consulted by: Dr. Benites History of Present Illness: The patient is a 43 year old M with R foot hammer toes, issues with R 3rd toe infection over past few months, now resolved. Had gone to OR 06/11/[address] Benites with arthroplasty of the right first metatarsal phalangeal joint, arthrodesis 2-4 toes, arthroplasty fifth toe. Did well post-op until a week ago when he noticed some green drainage from 1st MTP incision. Saw Dr. Benites two days later on 07/20, got cleaned up, was doing fine until 07/22 and 07/23 when he had progressive R medial foot swelling, redness, and pinkish drainage from that incision. No pain in foot, some chills. Came to ED, admitted on vanc/zosyn. Now vanc stopped, feeling better. Full ROS performed and neg except as noted above. - Medical History Past Medical History (Chronic Problems): Chronic Problems (Last Updated 04/30/19 @ 10:52 by Adelia Ferrer) Morbid obesity (Chronic) Allergies/Adverse Reactions: Allergies No Known Allergies Allergy (Verified 07/24/19 20:53) Home Medications: Ambulatory Orders Medication Instructions Recorded NK 07/24/19 - Social History SMOKING STATUS:: Former smoker Vital Signs Temp Pulse Resp BP Pulse Ox 98.0 F 68 16 102/64 98 07/26/19 09:15 07/26/19 09:15 07/26/19 09:15 07/26/19 09:15 07/26/19 09:15 Oxygen Flow Rate (L/min) 0 Oxygen Delivery Method Room Air Weight: 157.4 kg Body Mass Index (BMI) 43.3 Microbiology Past 72 Hours 07/25/19 00:00 Gram Stain - Final Wound - Aerobic & Anaerobic Swabs Wound Culture - Preliminary Streptococcus agalactiae (B) Staphylococcus aureus Coag Negative Staph - Other Studies Radiology: [] reviewed Other Studies: [] Route of nutrition/ use of supplements: [] Nutritional Intake: [] IV Site: [] Saini Catheter: [] - Physical Exam General: Alert, Oriented x3, Cooperative, No apparent distress HEENT: Atraumatic, PERRLA, EOMI Neck: Supple, No Nodes Lungs: Clear to auscultation, Normal air movement Cardiovascular: Regular rate, Regular Rhythm, No murmurs Abdomen: Soft, Non Tender, Non-Distended Extremities: Edema - mild Skin: Ulcer/ Wound IV Site: Peripheral, without redness Musculoskeletal: No Tenderness to Palpation of Joints or Extremities Neurological: Cranial nerves II-XII grossly intact - Assessment/Plan Antibiotics: [] Assessment/Plan: [] Active and Suspected Problems (Last Updated 04/30/19 @ 10:52 by Adelia Ferrer) Right foot infection (Acute) ASH (obstructive sleep apnea) (Suspected) Ulcer of right foot with fat layer exposed (Acute) Diarrhea (Acute) Postoperative wound cellulitis (Acute) Morbid obesity (Acute) Diarrhea (Acute) R foot infection - wound cx with staph aureus, CoNS, strep. On zosyn, will add linezolid while cx pending. No fever here. Wbc has normalized. Agree with plan for MRI. Will follow, thank you, d/w Dr. Benites
--- NOTE | 2019-07-26 15:31 | NURSING ---
wound photo: right foot
--- NOTE | 2019-07-26 15:32 | NURSING ---
photo: right dorsal foot
[2019-07-26] MEDS: 0.9% Saline Lock 10 ML Syringe IV ×2 (16:23→16:24)
--- NOTE | 2019-07-26 17:15 | PN_ITS ---
Patient Problems: Active and Suspected Problems (Last Updated 04/30/19 @ 10:52 by Adelia Ferrer) Right foot infection (Acute) ASH (obstructive sleep apnea) (Suspected) Ulcer of right foot with fat layer exposed (Acute) Diarrhea (Acute) Postoperative wound cellulitis (Acute) Morbid obesity (Acute) Diarrhea (Acute) Subjective: Patient was seen and examined today, I talked briefly with podiatry about his care-podiatry had infectious diseases see the patient today, he has polymicrobial growth from his foot wound. Patient denies any fevers or chills, his white blood cell count today was normal, he is afebrile. - Physical Exam Vitals/I&O's: Vital Signs Temp Pulse Resp BP Pulse Ox 97.8 F 83 16 102/54 L 97 07/26/19 15:15 07/26/19 15:15 07/26/19 15:15 07/26/19 15:15 07/26/19 15:15 Oxygen Flow Rate (L/min) 0 Oxygen Delivery Method Room Air Weight: 157.4 kg Body Mass Index (BMI) 43.3 Intake and Output for Last 24 Hours 07/24/19 07/25/19 07/26/19 23:59 23:59 23:59 Intake Total 5101.58 / 5101.58 2443.33 / 2443.33 Output Total 700 / 700 600 / 600 Balance 4401.58 / 4401.58 1843.33 / 1843.33 General: Alert, Oriented x3, Cooperative, No apparent distress, Well developed HEENT: Atraumatic, PERRLA, EOMI, Normocephalic Oral: Moist Mucosa Neck: Supple, No JVD, Negative Carotid Bruits, Trachea Midline, Thyroid Normal Size and Texture Lungs: Clear to auscultation, Normal air movement, No rhonchi, No wheeze, No rales Cardiovascular: Regular rate, Regular Rhythm, Normal S1, Normal S2, No murmurs, PMI Normal, No rub noted Abdomen: Bowel Sounds Present, Soft, Non Tender, Non-Distended, Obese Extremities: No clubbing, No cyanosis, Capillary Refill Less than 3 Seconds, - - Right lower leg was wrapped with surgical dressing this was not removed for examination of the right foot Skin: No rashes Musculoskeletal: No Muscle Wasting Neurological: Cranial nerves II-XII grossly intact, Neuro grossly intact, Sensory exam intact to light touch and pain Psych/Mental Status: Normal Affect, Appropriate, Alert and oriented to time, place, person, mood and affect Microbiology Past 72 Hours 07/25/19 00:00 Wound - Aerobic & Anaerobic Swabs Gram Stain - Final 07/25/19 00:00 Wound - Aerobic & Anaerobic Swabs Wound Culture - Preliminary Streptococcus agalactiae (B) Staphylococcus aureus Coag Negative Staph Current Medications Acetaminophen (Tylenol) 650 mg PO Q6H PRN PRN PRN Reason: Pain Score 1-3 /Temp>100.7 Last Admin: 07/25/19 01:14 Dose: 650 mg Documented by: Albuterol Sulfate (Ventolin Aerosols) 2.5 mg INHALATION Q2H PRN PRN PRN Reason: Dyspnea, wheezing Docusate Sodium (Colace) 100 mg PO BID PRN PRN PRN Reason: Constipation Enoxaparin Sodium (Lovenox) 40 mg SC DAILY@0600 [facility] Last Admin: 07/26/19 04:49 Dose: 40 mg Documented by: Hydralazine HCl (Apresoline Iv) 10 mg IV Q4H PRN PRN PRN Reason: SBP > 160 Sodium Chloride () 250 mls @ 15 mls/hr IV .[id number] PRN PRN Reason: Additional IVPB Infusion Last Infusion: 07/25/19 01:16 Dose: Infused Documented by: Sodium Chloride () 1,000 mls @ 100 mls/hr IV .Q10H [facility] Last Admin: 07/26/19 14:48 Dose: 100 mls/hr Documented by: Piperacillin Sod/Tazobactam (Sod 3.375 gm/ Sodium Chloride) 50 mls @ 12.5 mls /hr IV Q8 [facility] Last Admin: 07/26/19 14:49 Dose: 12.5 mls/hr Documented by: Linezolid (Zyvox) 600 mg PO BID [facility] Nutritional Formula (Abhijit - [employer] Flavor) [facility] Last Admin: 07/26/19 16:23 Dose: 1 packet Documented by: Ondansetron HCl (Zofran) 4 mg IV Q8H PRN PRN PRN Reason: NAUSEA/VOMITING Oxycodone HCl (Oxyir) 5 mg PO Q6H PRN PRN PRN Reason: Pain Score 6-10/10 Sodium Chloride () 10 - 40 ml IV UD PRN PRN Reason: SALINE FLUSH Last Admin: 07/26/19 16:24 Dose: 10 ml Documented by: Zolpidem Tartrate (Ambien (Generic)) 5 mg PO QHS PRN PRN PRN Reason: INS Last Admin: 07/25/19 01:14 Dose: 5 mg Documented by: Medical Necessity - Tobacco Use Smoking Status: Former smoker Tobacco Use: Non-smoker Assessment/Plan All Active Problems (Last Updated 04/30/19 @ 10:52 by Adelia Ferrer) Right foot infection (Acute) Former tobacco use (Resolved) Ulcer of right foot with fat layer exposed (Acute) Diarrhea (Acute) Postoperative wound cellulitis (Acute) Morbid obesity (Acute) Diarrhea (Acute) Fracture, ankle (Resolved) #1 deep wound infection of the right foot at first MTP surgical site with multiple organisms (Streptococcus agalactiae, staph aureus, and coag negative staph)-patient was seen by infectious diseases today, they are directing antibiotic treatment-patient is currently on Zosyn and Zyvox, podiatry ordered an MRI of the patient's right foot which is pending at this time #2 class III obesity Inpatient E&M: 47904 Subs Hosp L2
[2019-07-26] MEDS: Linezolid 600 MG Tablet PO (21:07)
[2019-07-26 21:15] VITALS: BP 111/65; PULSE 78; RESP 16; TEMP 36.5; O2SAT 96
[2019-07-27] VITALS (10 sets, daily range): BP systolic 98–121; BP diastolic 59–76; PULSE 61–78; RESP 16–18; TEMP 36.1–36.7; O2SAT 95–100; BMI 43.3
[2019-07-27] MEDS: 0.9% Normal Saline 1,000 ML 100 ML IV ×2 (02:12→15:00)
[2019-07-27] MEDS: Enoxaparin 40 MG/0.4 ML Syringe SC (05:47)
--- NOTE | 2019-07-27 06:54 | PCM.PROGNOTE ---
Patient Problems: Active and Suspected Problems (Last Updated 04/30/19 @ 10:52 by Adelia Ferrer) Right foot infection (Acute) ASH (obstructive sleep apnea) (Suspected) Ulcer of right foot with fat layer exposed (Acute) Diarrhea (Acute) Postoperative wound cellulitis (Acute) Morbid obesity (Acute) Diarrhea (Acute) Subjective: Patient was seen this morning for follow up on right foot. Patient relates to no new complaints. No pain to the foot at this time. No complaints of fever, chills, nausea or vomiting. - Physical Exam Vitals/I&O's: Vital Signs Temp Pulse Resp BP Pulse Ox 97.9 F 65 16 117/66 98 07/27/19 03:15 07/27/19 03:15 07/27/19 03:15 07/27/19 03:15 07/27/19 03:15 Oxygen Flow Rate (L/min) 0 Oxygen Delivery Method Room Air Weight: 157.4 kg Body Mass Index (BMI) 43.3 Intake and Output for Last 24 Hours 07/25/19 07/26/19 07/27/19 23:59 23:59 23:59 Intake Total 5101.58 / 5101.58 3213.33 / 3213.33 1180 / 1180 Output Total 700 / 700 600 / 600 Balance 4401.58 / 4401.58 2613.33 / 2613.33 1180 / 1180 General: Alert, Oriented x3, Cooperative, No apparent distress Extremities: Capillary Refill Less than 3 Seconds, No Calf Tenderness, - - Right foot dorsal 1st MTPJ incision site with ulceration down to subcutaneous tissue - it is mostly granular tissue some fibrotic tissues is present, there is slight serous drainage, there is small ulceration to the base of the 1st to at the lateral aspect with granular tissue and no drainage and down to subcutaneous tissue layer - there is edema to the forefoot and residual erythema present overlying the 1st MTPJ and 1st intermetatarsal space; there is no fluctuance or crepitus, no maloder is present, no blistering. There is no probe to bone or exposed bone or joint. There is wound down to the subcutaneous tissue to the lateral 4th toe with granular tissue - no deep invovlement, no evidence of infection here. There is tenderness to palpation to the 1st MTPJ, no severe pain - right foot. CFT < 2 seconds to all toes, and no evidence of ischemia to the right foot. Microbiology Past 72 Hours 07/25/19 00:00 Wound - Aerobic & Anaerobic Swabs Gram Stain - Final 07/25/19 00:00 Wound - Aerobic & Anaerobic Swabs Wound Culture - Preliminary Streptococcus agalactiae (B) Staphylococcus aureus Coag Negative Staph Current Medications Acetaminophen (Tylenol) 650 mg PO Q6H PRN PRN PRN Reason: Pain Score 1-3 /Temp>100.7 Last Admin: 07/25/19 01:14 Dose: 650 mg Documented by: Albuterol Sulfate (Ventolin Aerosols) 2.5 mg INHALATION Q2H PRN PRN PRN Reason: Dyspnea, wheezing Docusate Sodium (Colace) 100 mg PO BID PRN PRN PRN Reason: Constipation Enoxaparin Sodium (Lovenox) 40 mg SC DAILY@0600 [facility] Last Admin: 07/27/19 05:47 Dose: 40 mg Documented by: Hydralazine HCl (Apresoline Iv) 10 mg IV Q4H PRN PRN PRN Reason: SBP > 160 Sodium Chloride () 250 mls @ 15 mls/hr IV .[id number] PRN PRN Reason: Additional IVPB Infusion Last Infusion: 07/25/19 01:16 Dose: Infused Documented by: Sodium Chloride () 1,000 mls @ 100 mls/hr IV .Q10H [facility] Last Admin: 07/27/19 02:12 Dose: 100 mls/hr Documented by: Piperacillin Sod/Tazobactam (Sod 3.375 gm/ Sodium Chloride) 50 mls @ 12.5 mls/hr IV Q8 [facility] Last Admin: 07/27/19 05:43 Dose: 12.5 mls/hr Documented by: Linezolid (Zyvox) 600 mg PO BID [facility] Last Admin: 07/26/19 21:07 Dose: 600 mg Documented by: Nutritional Formula (Abhijit - [place] Flavor) [facility] Last Admin: 07/26/19 16:23 Dose: 1 packet Documented by: Ondansetron HCl (Zofran) 4 mg IV Q8H PRN PRN PRN Reason: NAUSEA/VOMITING Oxycodone HCl (Oxyir) 5 mg PO Q6H PRN PRN PRN Reason: Pain Score 6-10/10 Sodium Chloride () 10 - 40 ml IV UD PRN PRN Reason: SALINE FLUSH Last Admin: 07/26/19 16:24 Dose: 10 ml Documented by: Zolpidem Tartrate (Ambien (Generic)) 5 mg PO QHS PRN PRN PRN Reason: INS Last Admin: 07/25/19 01:14 Dose: 5 mg Documented by: Medical Necessity - Tobacco Use Smoking Status: Former smoker Tobacco Use: Non-smoker Assessment/Plan All Active Problems (Last Updated 04/30/19 @ 10:52 by Adelia Ferrer) Right foot infection (Acute) Former tobacco use (Resolved) Ulcer of right foot with fat layer exposed (Acute) Diarrhea (Acute) Postoperative wound cellulitis (Acute) Morbid obesity (Acute) Diarrhea (Acute) Fracture, ankle (Resolved) Right foot cellulitis, possible osteomyelitis Ulcer right foot with fat layer exposed Status post arthroplasty of the first metatarsal phalangeal joint right foot on 06-11-2019 Reviewed findings and diagnostic data. Foot checked. Reviewed MRI findings, there is findings c/w abscess at the 1st MTPJ site with possible osteomyelitis. We discussed the options, and we will plan to proceed with incision, drainage, and debridement w/ bone biopsy today. This was discussed with patient, reviewed rationale of this, as well as the possible benefits vs risks, goals and expectations. Patient agreed with plan. Elevate right lower extremity. To maintain a heel weightbearing status with a surgical shoe in place. Medical management with hospitalist is appreciated. Continue on DVT prophylaxis of SCD and enoxaparin.
--- NOTE | 2019-07-27 07:15 | NURSING ---
Dr Benites stated he changed dressing already this am and plans to take patient to surgery later today. states possible wound VAC placement tomorrow.
--- NOTE | 2019-07-27 08:50 | NURSING ---
Addendum entered by Jaymie Navarro 07/27/19 08:59: Also, notified surgery charge that patient did receive lovenox 40mg at 0547 this AM. Original Note: Notified via Surgery discharge coordinator that COVID needs to be ordered. This RN left message on doctor yue's answering machine at [phone] and again called blend plant operator half an hour later- not response. Notified blend plant operator at [phone]- she states she will continue looking for him. This RN texted surgery charge to notify them that we have been unable to obtain order at this point.
--- NOTE | 2019-07-27 11:27 | NURSING ---
Pt on way down to OR with staff assist.
--- NOTE | 2019-07-27 11:33 | PN.ID_ITS ---
Patient Problems: Active and Suspected Problems (Last Updated 04/30/19 @ 10:52 by Adelia Ferrer) Right foot infection (Acute) ASH (obstructive sleep apnea) (Suspected) Ulcer of right foot with fat layer exposed (Acute) Diarrhea (Acute) Postoperative wound cellulitis (Acute) Morbid obesity (Acute) Diarrhea (Acute) Subjective: Feeling ok, no fever, no n/v/d. OR today. - Physical Exam Vitals/I&O's: Vital Signs Temp Pulse Resp BP Pulse Ox 97.4 F L 66 18 117/70 95 07/27/19 08:32 07/27/19 08:32 07/27/19 08:32 07/27/19 08:32 07/27/19 08:32 Oxygen Flow Rate (L/min) 0 Oxygen Delivery Method Room Air Weight: 157.4 kg Body Mass Index (BMI) 43.3 Intake and Output for Last 24 Hours 07/25/19 07/26/19 07/27/19 23:59 23:59 23:59 Intake Total 5101.58 / 5101.58 3213.33 / 3213.33 2230 / 2230 Output Total 700 / 700 600 / 600 Balance 4401.58 / 4401.58 2613.33 / 2613.33 2230 / 2230 General: Alert, Cooperative, No apparent distress Neck: Supple Lungs: Clear to auscultation, Normal air movement Cardiovascular: Regular rate, Regular Rhythm Abdomen: Soft, Non Tender, Non-Distended Skin: Ulcer/ Wound Microbiology Past 72 Hours 07/25/19 00:00 Wound - Aerobic & Anaerobic Swabs Gram Stain - Final 07/25/19 00:00 Wound - Aerobic & Anaerobic Swabs Wound Culture - Preliminary Streptococcus agalactiae (B) Staphylococcus aureus Coag Negative Staph Gram positive adan Laboratory Results 07/27/19 09:48: COVID-19 ([facility]) Pending Current Medications Acetaminophen (Tylenol) 650 mg PO Q6H PRN PRN PRN Reason: Pain Score 1-3 /Temp>100.7 Last Admin: 07/25/19 01:14 Dose: 650 mg Documented by: Albuterol Sulfate (Ventolin Aerosols) 2.5 mg INHALATION Q2H PRN PRN PRN Reason: Dyspnea, wheezing Docusate Sodium (Colace) 100 mg PO BID PRN PRN PRN Reason: Constipation Enoxaparin Sodium (Lovenox) 40 mg SC DAILY@0600 [facility] Last Admin: 07/27/19 05:47 Dose: 40 mg Documented by: Hydralazine HCl (Apresoline Iv) 10 mg IV Q4H PRN PRN PRN Reason: SBP > 160 Sodium Chloride () 250 mls @ 15 mls/hr IV .[id number] PRN PRN Reason: Additional IVPB Infusion Last Infusion: 07/25/19 01:16 Dose: Infused Documented by: Sodium Chloride () 1,000 mls @ 100 mls/hr IV .Q10H [facility] Last Infusion: 07/27/19 11:28 Dose: Infused Documented by: Piperacillin Sod/Tazobactam (Sod 3.375 gm/ Sodium Chloride) 50 mls @ 12.5 mls/hr IV Q8 [facility] Last Infusion: 07/27/19 09:43 Dose: Infused Documented by: Linezolid (Zyvox) 600 mg PO BID [facility] Last Admin: 07/27/19 11:28 Dose: Not Given Documented by: Nutritional Formula ([facility]ijit - [place] Flavor) [facility] Last Admin: 07/27/19 07:53 Dose: Not Given Documented by: Ondansetron HCl (Zofran) 4 mg IV Q8H PRN PRN PRN Reason: NAUSEA/VOMITING Oxycodone HCl (Oxyir) 5 mg PO Q6H PRN PRN PRN Reason: Pain Score 6-10/10 Sodium Chloride () 10 - 40 ml IV UD PRN PRN Reason: SALINE FLUSH Last Admin: 07/26/19 16:24 Dose: 10 ml Documented by: Zolpidem Tartrate (Ambien (Generic)) 5 mg PO QHS PRN PRN PRN Reason: INS Last Admin: 07/25/19 01:14 Dose: 5 mg Documented by: Medical Necessity - Tobacco Use Smoking Status: Former smoker Tobacco Use: Non-smoker Route of nutrition/ use of supplements: [] Nutritional Intake: [] IV Site: [] Saini Catheter: [] - Assessment/Plan Antibiotics: [] Assessment/Plan: [] Active and Suspected Problems (Last Updated 04/30/19 @ 10:52 by Adelia Ferrer) Right foot infection (Acute) ASH (obstructive sleep apnea) (Suspected) Ulcer of right foot with fat layer exposed (Acute) Diarrhea (Acute) Postoperative wound cellulitis (Acute) Morbid obesity (Acute) Diarrhea (Acute) R foot infection - wound cx with staph aureus, CoNS, strep. On zosyn, linezolid. OR today with Dr. Benites for abscess and osteo. Will follow
[2019-07-27] MEDS: Lactated Ringers 1,000 ML 100 ML IV (11:40)
--- NOTE | 2019-07-27 12:30 | BON_PTH ---
PATIENT: DANIELLE DUMAS LOC: [facility]3 U#:[id number] AGE/SX: 43/M ROOM: [facility] [place]07/24/[address]: Dr. Cheo Pinto DO : 1975 BED: 1 DIS: 07/29/2019 SPEC #: [id number] RECD: 07/27/19 14:05 STATUS: CANDY REQ #: [id number] BEVERLY: 07/27/19 12:[address]: Eliu Benites DEPT: SURGICAL PATHOLOGY RECD BY: Speedy Grubbs ENTERED: 07/28/19 08:15 SP TYPE: Bone OTHR DR: MD Dr. Cheo Da Silva DO Dr. Efewongbe Oleghe, MD Dr. Jeanna Fascione, DPM Dr. Maksim Albright MD Tissues: Bone of foot, NOS Procedures: Decalcification bone/plaque Surgery Specimen Level III Comments: @ Ordering doctor for DEC edited from to @ by MATT at 07/28/19 0816 @ Ordering doctor for SUIII edited from to @ leeanne GUTIERREZ at 07/28/19 0816 @ Submitting doctor edited from to @ leeanne GUTIERREZ at 07/28/19 0816 HEADER OPERATION: Incision and drainage abscess, bone biopsy right great toe PRE-OP DIAGNOSIS: Abscess right great toe TISSUE SUBMITTED: Bone first metatarsal right great toe MICROSCOPIC DIAGNOSIS Bone first metatarsal right great toe: Pieces of bone with reactive changes and focal minimal chronic inflammation, negative for acute osteomyelitis Adherent piece of fibroconnective tissue with acute inflammation and fibrinous exudation. BELKYS:tiffany 08/02/19 MICROSCOPIC DESCRIPTION Slides are reviewed. GROSS DESCRIPTION Received in fixative is one container labeled with the patient's name and designated bone right great toe first. The specimen consists of two pieces of bone measuring 0.5 x 0.4 x 0.3 cm and 0.3 x 0.2 x 0.1 cm. The entire specimen is submitted in one cassette after decalcification. / BELKYS:tiffany 07/28/19 TC:2 CPT: 92417, 39028
[2019-07-27] MEDS: Bupivacaine Mpf 0.5% 30 ML VIAL (13:00)
--- NOTE | 2019-07-27 13:17 | PCM.OPRPT ---
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 Bone biopsy right 1st metatarsal phalangeal joint lead furnace operator: None Type of Anesthesia:: General Specimen's removed: 1. 1st metatarsal phalangeal joint, right, culture sent to microbiology. 2. Bone from 1st metatarsal head, right sent to pathology and microbiology Estimated Blood Loss (mL): 5mL Description of Procedure: Indications: This is a 43 year old gentleman who developed wound dehiscence and infection to the 1st metatarsal phalangeal joint right foot. Patient is ~6 weeks s/p 1st metatarsal phalageal hallux varus correction with resection of base of proximal phalanx and part of head of 1st metatarsal, as well as 2-5 hammer to correction. Patient developed infection to the 1st metatarsal phalangeal joint site end of last week, and was advised to go to the ER for further evaluation. Patient was noted to have increased WBC at that time. New right foot xrays as well as a CT scan was ordered and there was concern for osteomyelitis, but no abscess seen. MRI was ordered yesterday and there is also concern for osteomyelitis with abscess to the 1st metatarsal phalangeal joint. There was noted to be bone marrow edema to the 5th toe but there are absolutely no signs/symptoms of infection to the 5th toe and MRI findings c/w post surgical changes. Culture of the wound site of the 1st metatarsal phalangeal joint is growing staph aureus, strep, and Coag neg staph - finals pending. Patient is on antibiotics - Zosyn and Zyvox, ID/Dr. Hollins is on board. There is residual edema and erythema over the 1st metatarsal phalangeal joint after several days of antibiotics. Given the findings we discussed incision, drainage and debridement w/ bone biopsy of the 1st metatarsal phalangeal joint. Reviewed the rationale of the procedure with the patient, possible benefits vs risks, goals, and expectations. Alternative options discussed and reviewed. Patient advised on possibility including but not limited to nonhealing, delayed healing, further infection, loss of function, loss of toe/limb, loss of life, terminal clerk antibiotics, deformity. Patient expressed understanding and agreement and agreed with proceeding forward. The consent form was reviewed with him and he freely signed it. All of his questions were answered. Operative Procedure: The patient was brought back into the operating room and was placed on the operating room table in the supine position. He was carefully secured to the operating room table with a safety belt around his waist. A timeout was performed and the patient was properly identified and the surgical plan was confirmed. The patient was already on antibiotics as noted above. The patient received general anesthesia per the anesthesia team. A well padded pneumatic tourniquet was applied around the right ankle. The right foot was scrubbed, prepped, and draped in the usual aseptic fashion. Further attention was directed to the right foot, there was an open wound to the dorsal 1st metatarsal phalangeal joint down to the subcutaneous tissue, there is some residual erythema and edema to the site, was there was drainage which was serous in nature. The right foot was elevated for 3 minutes, and the right ankle pneumatic tourniquet was inflated to 250mmHg. Using a 15 blade, an incision was made to the ulceration/previous infection site and careful dissection was completed down to the 1st metatarsal phalangeal joint, upon reacting the joint level there was a immediate expression of serosanguineous drainage which corresponded to the abscess site on the MRI. This was cultured and sent to microbiology. This was drained and excised. There was some fibrotic tissue to the wound site which was debrided in selective fashion using a 15 blade debriding down to healthy viable tissue. The bone of the 1st metatarsal phalangeal joint was visualized and it was noted to he hard, and appeared viable. Using a bone cutting rongeur a piece of bone from the 1st metatarsal phalangeal joint was resected and sent to pathology and microbiology for further evaluation for osteomyelitis. The site was flushed out with copious amounts of normal saline solution. The remaining tissues appeared healthy and viable, there was no further drainage, no maloder, no fluctuance, no crepitus, no remaining abscess formation, there were no sinus tracks and tissue planes were intact. Extensor and flexor tendons remained intact to the 1st toe. A total of 10mL of 0.5% Bupivacaine plain was given as a local nerve block for post op pain control. The site was packed with 1/4in Iodoform packing. A dressing was applied which consisted of gauze, kerlix and haily dressing. The pneumatic tourniquet was deflated and there was immediate return of warmth and perfusion to the foot and to all toes. CFT < 2 seconds to all toes. Total tourniquet time was 25 minutes. The patient tolerated the above procedure well and the anesthesia well with no complications. Patient will be transferred back to his room on MS 3 floor. Post operative xrays of the right foot, 3 views, were obtained and reviewed. Debridement of the 1st metatarsal phalangeal joint, otherwise no acute changes or findings. No weightbearing right foot, and keep right foot elevated. He will be followed as inpatient. Grafts/Implants Used: None - Complications None
--- NOTE | 2019-07-27 13:40 | RAD_ITS ---
STUDY: X-RAY - RIGHT FOOT CLINICAL: Male, 43 years old. POST OP TECHNIQUE: 3 view(s) of the foot. COMPARISON: Including x-ray July 24, 2019 and MRI July 26, 2019. FINDINGS: There are plantar and dorsal spurs of the calcaneus. There is joint space narrowing and spurring of the hindfoot and midfoot. There is resection of the first metatarsal head and base of the first proximal phalanx. There is postoperative change in the soft tissues of the dorsal aspect of the first MTP joint. There are screws fusing the phalanges of the second, third, and fourth toes. There is resection and/or erosion at the proximal interphalangeal joint of the fifth toe. RAD/Foot min 3 Views IMPRESSION: Postoperative changes in the soft tissues on the dorsal aspect at the first MTP joint. Prior resection of the first MTP joint. Electronically Signed: Leodan Travis MD at 16:31 EDT , Service support ,
[2019-07-27] MEDS: 0.9% Saline Lock 10 ML Syringe IV ×3 (14:46→23:02)
--- NOTE | 2019-07-27 18:10 | PN_ITS ---
Patient Problems: Active and Suspected Problems (Last Updated 04/30/19 @ 10:52 by Adelia Ferrer) Right foot infection (Acute) ASH (obstructive sleep apnea) (Suspected) Ulcer of right foot with fat layer exposed (Acute) Diarrhea (Acute) Postoperative wound cellulitis (Acute) Morbid obesity (Acute) Diarrhea (Acute) Subjective: Patient was seen and examined today, he underwent surgery on his right foot, I talked briefly with podiatry about his surgery. Patient is in taking fluids appropriately so I do not think he needs IV fluids at this time. Patient denies any fever chills - Physical Exam Vitals/I&O's: Vital Signs Temp Pulse Resp BP Pulse Ox 97.7 F L 78 18 99/65 99 07/27/19 16:29 07/27/19 16:29 07/27/19 16:29 07/27/19 16:29 07/27/19 16:29 Oxygen Flow Rate (L/min) 0 Oxygen Delivery Method Room Air Weight: 157.4 kg Body Mass Index (BMI) 43.3 Intake and Output for Last 24 Hours 07/25/19 07/26/19 07/27/19 23:59 23:59 23:59 Intake Total 5101.58 / 5101.58 3213.33 / 3213.33 2831.5 / 2831.5 Output Total 700 / 700 600 / 600 Balance 4401.58 / 4401.58 2613.33 / 2613.33 2831.5 / 2831.5 General: Alert, Oriented x3, Cooperative, No apparent distress, Well developed, Well nourished HEENT: Atraumatic, PERRLA, EOMI, Normocephalic Oral: Moist Mucosa Neck: Supple, No JVD, Trachea Midline, Thyroid Normal Size and Texture Lungs: Clear to auscultation, Normal air movement, No rhonchi, No wheeze Cardiovascular: Regular rate, Regular Rhythm, Normal S1, Normal S2, No murmurs, PMI Normal, No rub noted Abdomen: Bowel Sounds Present, Soft, Non Tender, Non-Distended, Obese, No hernias noted Extremities: No clubbing, No cyanosis, Capillary Refill Less than 3 Seconds Skin: No rashes, - - Right foot is wrapped with surgical gauze this was not removed for examination. Musculoskeletal: No Tenderness to Palpation of Joints or Extremities Neurological: Cranial nerves II-XII grossly intact, Neuro grossly intact, Sensory exam intact to light touch and pain, Coordination normal Psych/Mental Status: Normal Affect, Appropriate, Alert and oriented to time, place, person, mood and affect Microbiology Past 72 Hours 07/24/19 21:40 Blood Culture (Wb) - Anticubital Right Blood Culture - Preliminary No growth in 48 hours. 07/24/19 21:38 Blood Culture (Wb) - Anticubital Left Blood Culture - Preliminary No growth in 48 hours. 07/25/19 00:00 Wound - Aerobic & Anaerobic Swabs Gram Stain - Final 07/25/19 00:00 Wound - Aerobic & Anaerobic Swabs Wound Culture - Preliminary Streptococcus agalactiae (B) Staphylococcus aureus Coag Negative Staph Gram positive adan Laboratory Results 07/27/19 09:48: COVID-19 ([facility]) Not Detected Current Medications Acetaminophen (Tylenol) 650 mg PO Q6H PRN PRN PRN Reason: Pain Score 1-3 /Temp>100.7 Last Admin: 07/25/19 01:14 Dose: 650 mg Documented by: Albuterol Sulfate (Ventolin Aerosols) 2.5 mg INHALATION Q2H PRN PRN PRN Reason: Dyspnea, wheezing Docusate Sodium (Colace) 100 mg PO BID PRN PRN PRN Reason: Constipation Enoxaparin Sodium (Lovenox) 40 mg SC DAILY@0600 [facility] Last Admin: 07/27/19 05:47 Dose: 40 mg Documented by: Hydralazine HCl (Apresoline Iv) 10 mg IV Q4H PRN PRN PRN Reason: SBP > 160 Sodium Chloride () 250 mls @ 15 mls/hr IV .[id number] PRN PRN Reason: Additional IVPB Infusion Last Infusion: 07/27/19 14:52 Dose: 0 mls/hr Documented by: Sodium Chloride () 1,000 mls @ 100 mls/hr IV .Q10H [facility] Last Admin: 07/27/19 15:00 Dose: 100 mls/hr Documented by: Piperacillin Sod/Tazobactam (Sod 3.375 gm/ Sodium Chloride) 50 mls @ 12.5 mls/hr IV Q8 [facility] Last Admin: 07/27/19 14:46 Dose: 12.5 mls/hr Documented by: Linezolid (Zyvox) 600 mg PO BID [facility] Last Admin: 07/27/19 11:28 Dose: Not Given Documented by: Nutritional Formula ([facility]ijit - [place] Fl[facility]) [facility] Last Admin: 07/27/19 16:26 Dose: 1 packet Documented by: Ondansetron HCl (Zofran) 4 mg IV Q8H PRN PRN PRN Reason: NAUSEA/VOMITING Oxycodone HCl (Oxyir) 5 mg PO Q6H PRN PRN PRN Reason: Pain Score 6-10/10 Sodium Chloride () 10 - 40 ml IV UD PRN PRN Reason: SALINE FLUSH Last Admin: 07/27/19 15:04 Dose: 10 ml Documented by: Zolpidem Tartrate (Ambien (Generic)) 5 mg PO QHS PRN PRN PRN Reason: INS Last Admin: 07/25/19 01:14 Dose: 5 mg Documented by: Medical Necessity - Tobacco Use Smoking Status: Former smoker Tobacco Use: Non-smoker Assessment/Plan All Active Problems (Last Updated 04/30/19 @ 10:52 by Adelia Ferrer) Right foot infection (Acute) Former tobacco use (Resolved) Ulcer of right foot with fat layer exposed (Acute) Diarrhea (Acute) Postoperative wound cellulitis (Acute) Morbid obesity (Acute) Diarrhea (Acute) Fracture, ankle (Resolved) #1 deep wound infection of the right foot at first MTP surgical site with multiple organisms (Streptococcus agalactiae, staph aureus, and coag negative staph)-patient was seen by infectious diseases-infectious diseases is directing antibiotic coverage, I again patient underwent debridement and biopsy of bone to day in his right foot #2 class III obesity Inpatient E&M: 37756 Subs Hosp L2
[2019-07-27] MEDS: Acetaminophen 325 MG Tablet 650 MG PO (19:21)
[2019-07-27] MEDS: Linezolid 600 MG Tablet PO (22:34)
[2019-07-28 02:34] VITALS: BP 96/56; PULSE 71; RESP 18; TEMP 36.5; O2SAT 97
[2019-07-28] MEDS: 0.9% Saline Lock 10 ML Syringe IV (05:32)
[2019-07-28] MEDS: Enoxaparin 40 MG/0.4 ML Syringe SC (05:33)
[2019-07-28 06:28] VITALS: BP 104/60; PULSE 66; RESP 16; TEMP 36.6; O2SAT 95
--- NOTE | 2019-07-28 07:20 | PN_ITS ---
Patient Problems: Active and Suspected Problems (Last Updated 04/30/19 @ 10:52 by Adelia Ferrer) Right foot infection (Acute) ASH (obstructive sleep apnea) (Suspected) Ulcer of right foot with fat layer exposed (Acute) Diarrhea (Acute) Postoperative wound cellulitis (Acute) Morbid obesity (Acute) Diarrhea (Acute) Subjective: Patient relates he is feeling better, no complaints. s/p I+D debridement right foot yesterday. He is resting comfortably in bed. - Physical Exam Vitals/I&O's: Vital Signs Temp Pulse Resp BP Pulse Ox 98 F 66 16 104/60 95 07/28/19 06:28 07/28/19 06:28 07/28/19 06:28 07/28/19 06:28 07/28/19 06:28 Oxygen Flow Rate (L/min) 0 Oxygen Delivery Method Room Air Weight: 157.4 kg Body Mass Index (BMI) 43.3 Intake and Output for Last 24 Hours 07/26/19 07/27/19 07/28/19 23:59 23:59 23:59 Intake Total 3213.33 / 3213.33 4328.17 / 4328.17 364.25 / 364.25 Output Total 600 / 600 Balance 2613.33 / 2613.33 4328.17 / 4328.17 364.25 / 364.25 General: Alert, Oriented x3, Cooperative, No apparent distress Extremities: Capillary Refill Less than 3 Seconds, No Calf Tenderness, - - s/p I+D debridement right 1st MTPJ with viable tissues down to bone, resolving erythema and less edema, no maloder, no necrosis, no fluctuance, no crepitus; wound down to lateral base of 1st toe down to subcutaneous tissue and lateral 4th toe down to subcutaneous tissue - tissues viable and health, healing well w/ no evidence of infection. Microbiology Past 72 Hours 07/24/19 21:40 Blood Culture (Wb) - Anticubital Right Blood Culture - Preliminary No growth in 48 hours. 07/24/19 21:38 Blood Culture (Wb) - Anticubital Left Blood Culture - Preliminary No growth in 48 hours. 07/25/19 00:00 Wound - Aerobic & Anaerobic Swabs Gram Stain - Final 07/25/19 00:00 Wound - Aerobic & Anaerobic Swabs Wound Culture - Preliminary Streptococcus agalactiae (B) Staphylococcus aureus Coag Negative Staph Gram positive adan Laboratory Results 07/27/19 09:48: COVID-19 ([facility]) Not Detected Current Medications Acetaminophen (Tylenol) 650 mg PO Q6H PRN PRN PRN Reason: Pain Score 1-3 /Temp>100.7 Last Admin: 07/27/19 19:21 Dose: 650 mg Documented by: Albuterol Sulfate (Ventolin Aerosols) 2.5 mg INHALATION Q2H PRN PRN PRN Reason: Dyspnea, wheezing Docusate Sodium (Colace) 100 mg PO BID PRN PRN PRN Reason: Constipation Enoxaparin Sodium (Lovenox) 40 mg SC DAILY@0600 [facility] Last Admin: 07/28/19 05:33 Dose: 40 mg Documented by: Hydralazine HCl (Apresoline Iv) 10 mg IV Q4H PRN PRN PRN Reason: SBP > 160 Sodium Chloride () 250 mls @ 15 mls/hr IV .[id number] PRN PRN Reason: Additional IVPB Infusion Last Infusion: 07/28/19 05:30 Dose: 0 mls/hr Documented by: Piperacillin Sod/Tazobactam (Sod 3.375 gm/ Sodium Chloride) 50 mls @ 12.5 mls/hr IV Q8 [facility] Last Admin: 07/28/19 05:30 Dose: 12.5 mls/hr Documented by: Linezolid (Zyvox) 600 mg PO BID [facility] Last Admin: 07/27/19 22:34 Dose: 600 mg Documented by: Nutritional Formula (Abhijit - [place] Flavor) 1 packet PO BIDCM [facility] Last Admin: 07/27/19 16:26 Dose: 1 packet Documented by: Ondansetron HCl (Zofran) 4 mg IV Q8H PRN PRN PRN Reason: NAUSEA/VOMITING Oxycodone HCl (Oxyir) 5 mg PO Q6H PRN PRN PRN Reason: Pain Score 6-10/10 Sodium Chloride () 10 - 40 ml IV UD PRN PRN Reason: SALINE FLUSH Last Admin: 07/28/19 05:32 Dose: 10 ml Documented by: Zolpidem Tartrate (Ambien (Generic)) 5 mg PO QHS PRN PRN PRN Reason: INS Last Admin: 07/25/19 01:14 Dose: 5 mg Documented by: Medical Necessity - Tobacco Use Smoking Status: Former smoker Tobacco Use: Non-smoker Assessment/Plan All Active Problems (Last Updated 04/30/19 @ 10:52 by Adelia Ferrer) Right foot infection (Acute) Former tobacco use (Resolved) Ulcer of right foot with fat layer exposed (Acute) Diarrhea (Acute) Postoperative wound cellulitis (Acute) Morbid obesity (Acute) Diarrhea (Acute) Fracture, ankle (Resolved) Right foot cellulitis, possible osteomyelitis Ulcer right foot with bone exposed Status post arthroplasty of the first metatarsal phalangeal joint right foot on 06-11-2019 Wound lateral 1st toe and 4th toe down to subcutaneous tissue layer, right foot Reviewed findings and diagnostic data. s/p I+D debridement w/ bone biopsy on 07/27/2019 - improvement noted to foot today. We will proceed with wound vac to the wound site. Aquacel and gauze daily dressing changes to small ulcerations lateral 1st toe and 4th toe right foot. Elevate right lower extremity. To maintain a heel weightbearing status with a surgical shoe in place. Continue to follow cultures - surgical cultures pending. Patient on antibiotics, ID/Dr. Albright following. Medical management with hospitalist is appreciated. Continue on DVT prophylaxis of SCD and enoxaparin.
--- NOTE | 2019-07-28 08:49 | NURSING ---
wound photo: right foot
--- NOTE | 2019-07-28 08:51 | NURSING ---
wound photo: right foot
--- NOTE | 2019-07-28 08:51 | NURSING ---
wound photo: right foot
--- NOTE | 2019-07-28 08:52 | NURSING ---
wound photo: right foot
[2019-07-28] MEDS: Linezolid 600 MG Tablet PO ×2 (09:00→22:17)
--- NOTE | 2019-07-28 09:24 | PCM.PN.HOSP ---
Patient Problems: Active and Suspected Problems (Last Updated 04/30/19 @ 10:52 by Adelia Ferrer) Right foot infection (Acute) ASH (obstructive sleep apnea) (Suspected) Ulcer of right foot with fat layer exposed (Acute) Diarrhea (Acute) Postoperative wound cellulitis (Acute) Morbid obesity (Acute) Diarrhea (Acute) Reason for Visit: right foot infection Subjective: No new complaints Vitals/I&O's: Vital Signs Temp Pulse Resp BP Pulse Ox 36.6 C 66 16 104/60 95 07/28/19 06:28 07/28/19 06:28 07/28/19 06:28 07/28/19 06:28 07/28/19 06:28 Oxygen Flow Rate (L/min) 0 Oxygen Delivery Method Room Air Weight: 157.4 kg Body Mass Index (BMI) 43.3 Intake and Output for Last 24 Hours 07/26/19 07/27/19 07/28/19 23:59 23:59 23:59 Intake Total 3213.33 / 3213.33 4328.17 / 4328.17 364.25 / 364.25 Output Total 600 / 600 Balance 2613.33 / 2613.33 4328.17 / 4328.17 364.25 / 364.25 General: Alert, No apparent distress HEENT: Atraumatic, Normocephalic Oral: Moist Mucosa, No Gingival or Mucosal Lesions/ Ulcerations Neck: No Nodes, Thyroid Normal Size and Texture Lungs: Clear to auscultation, Normal air movement, No rhonchi, No wheeze Cardiovascular: Regular rate, Regular Rhythm, Normal S1, Normal S2, No murmurs Abdomen: Bowel Sounds Present, Soft, Non Tender, Non-Distended, Obese Extremities: No edema, No Calf Tenderness Skin: No rashes, No breakdown Musculoskeletal: No Tenderness to Palpation of Joints or Extremities, No Muscle Wasting Psych/Mental Status: Normal Affect, Appropriate Microbiology Past 72 Hours 07/25/19 00:00 Wound - Aerobic & Anaerobic Swabs Gram Stain - Final 07/25/19 00:00 Wound - Aerobic & Anaerobic Swabs Wound Culture - Final Streptococcus agalactiae (B) Staphylococcus aureus Staphylococcus epidermidis Corynebacterium species 07/25/19 00:00 Wound - Aerobic & Anaerobic Swabs Anaerobic Culture - Final No anaerobic bacteria isolated. 07/24/19 21:40 Blood Culture (Wb) - Anticubital Right Blood Culture - Preliminary No growth in 48 hours. 07/24/19 21:38 Blood Culture (Wb) - Anticubital Left Blood Culture - Preliminary No growth in 48 hours. Laboratory Results 07/27/19 09:48: COVID-19 ([facility]) Not Detected Current Medications Acetaminophen (Tylenol) 650 mg PO Q6H PRN PRN PRN Reason: Pain Score 1-3 /Temp>100.7 Last Admin: 07/27/19 19:21 Dose: 650 mg Documented by: Albuterol Sulfate (Ventolin Aerosols) 2.5 mg INHALATION Q2H PRN PRN PRN Reason: Dyspnea, wheezing Docusate Sodium (Colace) 100 mg PO BID PRN PRN PRN Reason: Constipation Enoxaparin Sodium (Lovenox) 40 mg SC DAILY@0600 [facility] Last Admin: 07/28/19 05:33 Dose: 40 mg Documented by: Hydralazine HCl (Apresoline Iv) 10 mg IV Q4H PRN PRN PRN Reason: SBP > 160 Sodium Chloride () 250 mls @ 15 mls/hr IV .[id number] PRN PRN Reason: Additional IVPB Infusion Last Infusion: 07/28/19 05:30 Dose: 0 mls/hr Documented by: Piperacillin Sod/Tazobactam (Sod 3.375 gm/ Sodium Chloride) 50 mls @ 12.5 mls/hr IV Q8 [facility] Last Admin: 07/28/19 05:30 Dose: 12.5 mls/hr Documented by: Linezolid (Zyvox) 600 mg PO BID [facility] Last Admin: 07/28/19 09:00 Dose: 600 mg Documented by: Nutritional Formula (Abhijit - [place] Flavor) [facility] Last Admin: 07/28/19 08:20 Dose: 1 packet Documented by: Ondansetron HCl (Zofran) 4 mg IV Q8H PRN PRN PRN Reason: NAUSEA/VOMITING Oxycodone HCl (Oxyir) 5 mg PO Q6H PRN PRN PRN Reason: Pain Score 6-10/10 Sodium Chloride () 10 - 40 ml IV UD PRN PRN Reason: SALINE FLUSH Last Admin: 07/28/19 05:32 Dose: 10 ml Documented by: Zolpidem Tartrate (Ambien (Generic)) 5 mg PO QHS PRN PRN PRN Reason: INS Last Admin: 07/25/19 01:14 Dose: 5 mg Documented by: STROKE Vital Signs/Narrative: Vital Signs Temp Pulse Resp BP Pulse Ox 07/28/19 06:28 36.6 C 66 16 104/60 95 Medical Necessity - Tobacco Use Smoking Status: Former smoker Tobacco Use: Non-smoker Assessment/Plan All Active Problems (Last Updated 04/30/19 @ 10:52 by Adelia Ferrer) Right foot infection (Acute) Former tobacco use (Resolved) Ulcer of right foot with fat layer exposed (Acute) Diarrhea (Acute) Postoperative wound cellulitis (Acute) Morbid obesity (Acute) Diarrhea (Acute) Fracture, ankle (Resolved) 1. right foot infection concern for OM on 1st MTP and phalanges. I+D w bone biopsy on 07/26 on pip/tazo and linezolid podiatry and ID following wound vac in place 2. VTE prophylaxis: LMWH Inpatient E&M: 66932 Subs Hosp L2
[2019-07-28 10:00] VITALS: BP 112/73; PULSE 78; RESP 16; TEMP 36.2; O2SAT 100
--- NOTE | 2019-07-28 12:07 | CASEMGMT ---
Addendum entered by Willie Del Real 07/28/19 15:41: Call received back from Kendy @ [facility]. They are able to accept pt. Start of care will be Friday. Pt made aware. [facility]: PH: [phone] Addendum entered by Willie Del Real 07/28/19 15:15: Call placed to [facility] and spoke w/Kendy re: if they are able to accept pt. She states it is still in review. Nathan DO RN, CM Original Note: NARENDRA CROWE NOTE: Per Inna, Wound nurse, pt had wound vac applied today and will be due to have next Wound vac change done Friday. NARENDRA CROWE to room to discuss discharge plans with pt. Pt states he would like to have [facility] @ discharge. Pt provided with list of [facility] agencies. [facility] choice is [facility]. Call placed to [facility] and they do not cover pt's area. Pt reviewed list again and other selections made. Call placed to [facility], [place], [facility], and [facility]'s and none of these [facility] agencies are able to accept d/t either do not cover pt's location or do not accept [place] in pt's location. Call palaced to [facility] and spoke with Kendy. She states they do cover pt's area and accept [place]. Pt made aware and is agreeable to [facility]. Referral faxed to [facility] at this time. Awaiting acceptance. Pt made aware. Nathan DO RN, CM
[2019-07-28 14:15] VITALS: BP 98/62; PULSE 73; RESP 16; TEMP 36.3; O2SAT 96
--- NOTE | 2019-07-28 14:27 | PCM.PN.ID ---
Patient Problems: Active and Suspected Problems (Last Updated 04/30/19 @ 10:52 by Adelia Ferrer) Right foot infection (Acute) ASH (obstructive sleep apnea) (Suspected) Ulcer of right foot with fat layer exposed (Acute) Diarrhea (Acute) Postoperative wound cellulitis (Acute) Morbid obesity (Acute) Diarrhea (Acute) Subjective: Feeling well s/p OR yesterday, no fever, no n/v/d. - Physical Exam Vitals/I&O's: Vital Signs Temp Pulse Resp BP Pulse Ox 97.4 F L 73 16 98/62 96 07/28/19 14:15 07/28/19 14:15 07/28/19 14:15 07/28/19 14:15 07/28/19 14:15 Oxygen Flow Rate (L/min) 0 Oxygen Delivery Method Room Air Weight: 157.4 kg Body Mass Index (BMI) 43.3 Intake and Output for Last 24 Hours 07/26/19 07/27/19 07/28/19 23:59 23:59 23:59 Intake Total 3213.33 / 3213.33 4328.17 / 4328.17 981.25 / 981.25 Output Total 600 / 600 Balance 2613.33 / 2613.33 4328.17 / 4328.17 981.25 / 981.25 General: Alert, Cooperative, No apparent distress Lungs: Clear to auscultation, Normal air movement Cardiovascular: Regular rate, Regular Rhythm Abdomen: Soft, Non Tender, Non-Distended Skin: Ulcer/ Wound - foot wrapped Microbiology Past 72 Hours 07/27/19 13:46 Bone - Toe Gram Stain - Final 07/27/19 13:46 Bone - Toe Wound Culture - Preliminary No growth-Final to follow 07/27/19 13:46 Incision/Surgical Site Gram Stain - Final 07/27/19 13:46 Incision/Surgical Site Wound Culture - Preliminary Beta streptococcus 07/25/19 00:00 Wound - Aerobic & Anaerobic Swabs Gram Stain - Final 07/25/19 00:00 Wound - Aerobic & Anaerobic Swabs Wound Culture - Final Streptococcus agalactiae (B) Staphylococcus aureus Staphylococcus epidermidis Corynebacterium species 07/25/19 00:00 Wound - Aerobic & Anaerobic Swabs Anaerobic Culture - Final No anaerobic bacteria isolated. 07/24/19 21:40 Blood Culture (Wb) - Anticubital Right Blood Culture - Preliminary No growth in 48 hours. 07/24/19 21:38 Blood Culture (Wb) - Anticubital Left Blood Culture - Preliminary No growth in 48 hours. Current Medications Acetaminophen (Tylenol) 650 mg PO Q6H PRN PRN PRN Reason: Pain Score 1-3 /Temp>100.7 Last Admin: 07/27/19 19:21 Dose: 650 mg Documented by: Albuterol Sulfate (Ventolin Aerosols) 2.5 mg INHALATION Q2H PRN PRN PRN Reason: Dyspnea, wheezing Docusate Sodium (Colace) 100 mg PO BID PRN PRN PRN Reason: Constipation Enoxaparin Sodium (Lovenox) 40 mg SC DAILY@0600 [facility] Last Admin: 07/28/19 05:33 Dose: 40 mg Documented by: Hydralazine HCl (Apresoline Iv) 10 mg IV Q4H PRN PRN PRN Reason: SBP > 160 Sodium Chloride () 250 mls @ 15 mls/hr IV .[id number] PRN PRN Reason: Additional IVPB Infusion Last Infusion: 07/28/19 13:58 Dose: 0 mls/hr Documented by: Piperacillin Sod/Tazobactam (Sod 3.375 gm/ Sodium Chloride) 50 mls @ 12.5 mls/hr IV Q8 [facility] Last Admin: 07/28/19 13:58 Dose: 12.5 mls/hr Documented by: Linezolid (Zyvox) 600 mg PO BID [facility] Last Admin: 07/28/19 09:00 Dose: 600 mg Documented by: Nutritional Formula (Abhijit - [place] Flavor) [facility] Last Admin: 07/28/19 08:20 Dose: 1 packet Documented by: Ondansetron HCl (Zofran) 4 mg IV Q8H PRN PRN PRN Reason: NAUSEA/VOMITING Oxycodone HCl (Oxyir) 5 mg PO Q6H PRN PRN PRN Reason: Pain Score 6-10/10 Sodium Chloride () 10 - 40 ml IV UD PRN PRN Reason: SALINE FLUSH Last Admin: 07/28/19 05:32 Dose: 10 ml Documented by: Zolpidem Tartrate (Ambien (Generic)) 5 mg PO QHS PRN PRN PRN Reason: INS Last Admin: 07/25/19 01:14 Dose: 5 mg Documented by: Medical Necessity - Tobacco Use Smoking Status: Former smoker Tobacco Use: Non-smoker Route of nutrition/ use of supplements: [] Nutritional Intake: [] IV Site: [] Saini Catheter: [] - Assessment/Plan Antibiotics: [] Assessment/Plan: [] Active and Suspected Problems (Last Updated 04/30/19 @ 10:52 by Adelia Ferrer) Right foot infection (Acute) ASH (obstructive sleep apnea) (Suspected) Ulcer of right foot with fat layer exposed (Acute) Diarrhea (Acute) Postoperative wound cellulitis (Acute) Morbid obesity (Acute) Diarrhea (Acute) R foot infection - wound cx with MSSA corynebacteria, CoNS, strep. On zosyn, linezolid. OR 07/[address] Benites for abscess and suspected osteo. Will follow
--- NOTE | 2019-07-28 14:44 | NURSING ---
asked patient if he would like to me to contact and update a family member and if so whom. patient stated no need to call anyone because he was updating as he wanted. told pt to let me know if he changed his mind or someone wanted to speak with his nurse
[2019-07-28 18:07] VITALS: BP 99/49; PULSE 83; RESP 16; TEMP 36.6; O2SAT 97
[2019-07-28 22:18] VITALS: BP 118/68; PULSE 72; RESP 18; TEMP 37; O2SAT 98
[2019-07-29 05:08] VITALS: BP 108/63; PULSE 73; RESP 16; TEMP 36.4; O2SAT 96
[2019-07-29] MEDS: Enoxaparin 40 MG/0.4 ML Syringe SC (05:45)
--- NOTE | 2019-07-29 08:18 | PN_ITS ---
Patient Problems: Active and Suspected Problems (Last Updated 04/30/19 @ 10:52 by Adelia Ferrer) Right foot infection (Acute) ASH (obstructive sleep apnea) (Suspected) Ulcer of right foot with fat layer exposed (Acute) Diarrhea (Acute) Postoperative wound cellulitis (Acute) Morbid obesity (Acute) Diarrhea (Acute) Subjective: Patient was seen this morning for follow up on right foot. He relates there is no pain, no complaints of fever, chills, nausea or vomiting. He is resting comfortably in bed, no complaints. - Physical Exam Vitals/I&O's: Vital Signs Temp Pulse Resp BP Pulse Ox 97.5 F L 73 16 108/63 96 07/29/19 05:08 07/29/19 05:08 07/29/19 05:08 07/29/19 05:08 07/29/19 05:08 Oxygen Flow Rate (L/min) 0 Oxygen Delivery Method Room Air Weight: 157.4 kg Body Mass Index (BMI) 43.3 Intake and Output for Last 24 Hours 07/27/19 07/28/19 07/29/19 23:59 23:59 23:59 Intake Total 4328.17 / 4328.17 2314.75 / 2314.75 352.25 / 352.25 Balance 4328.17 / 4328.17 2314.75 / 2314.75 352.25 / 352.25 General: Alert, Oriented x3, Cooperative, No apparent distress Extremities: Capillary Refill Less than 3 Seconds, No Calf Tenderness, - - Wound vac intact to right foot, less edema and less erythema noted - continued improvement noted. Small wounds to lateral 1st toe and 4th toe right foot healing well with no evidence of infection or deep involvement- tissues viable and healthy. No POP to the right foot or ankle. Microbiology Past 72 Hours 07/27/19 13:46 Bone - Toe Gram Stain - Final 07/27/19 13:46 Bone - Toe Wound Culture - Preliminary No growth-Final to follow 07/27/19 13:46 Incision/Surgical Site Gram Stain - Final 07/27/19 13:46 Incision/Surgical Site Wound Culture - Preliminary Beta streptococcus 07/25/19 00:00 Wound - Aerobic & Anaerobic Swabs Gram Stain - Final 07/25/19 00:00 Wound - Aerobic & Anaerobic Swabs Wound Culture - Final Streptococcus agalactiae (B) Staphylococcus aureus Staphylococcus epidermidis Corynebacterium species 07/25/19 00:00 Wound - Aerobic & Anaerobic Swabs Anaerobic Culture - Final No anaerobic bacteria isolated. 07/24/19 21:40 Blood Culture (Wb) - Anticubital Right Blood Culture - Prel iminary No growth in 48 hours. 07/24/19 21:38 Blood Culture (Wb) - Anticubital Left Blood Culture - Preliminary No growth in 48 hours. Current Medications Acetaminophen (Tylenol) 650 mg PO Q6H PRN PRN PRN Reason: Pain Score 1-3 /Temp>100.7 Last Admin: 07/27/19 19:21 Dose: 650 mg Documented by: Albuterol Sulfate (Ventolin Aerosols) 2.5 mg INHALATION Q2H PRN PRN PRN Reason: Dyspnea, wheezing Docusate Sodium (Colace) 100 mg PO BID PRN PRN PRN Reason: Constipation Enoxaparin Sodium (Lovenox) 40 mg SC DAILY@0600 [facility] Last Admin: 07/29/19 05:45 Dose: 40 mg Documented by: Hydralazine HCl (Apresoline Iv) 10 mg IV Q4H PRN PRN PRN Reason: SBP > 160 Sodium Chloride () 250 mls @ 15 mls/hr IV .[id number] PRN PRN Reason: Additional IVPB Infusion Last Infusion: 07/29/19 05:46 Dose: 0 mls/hr Documented by: Piperacillin Sod/Tazobactam (Sod 3.375 gm/ Sodium Chloride) 50 mls @ 12.5 mls/hr IV Q8 [facility] Last Admin: 07/29/19 05:45 Dose: 12.5 mls/hr Documented by: Linezolid (Zyvox) 600 mg PO BID [facility] Last Admin: 07/28/19 22:17 Dose: 600 mg Documented by: Nutritional Formula ([facility]hijit - [place] Fl[facility]) [facility] Last Admin: 07/29/19 08:14 Dose: 1 packet Documented by: Ondansetron HCl (Zofran) 4 mg IV Q8H PRN PRN PRN Reason: NAUSEA/VOMITING Oxycodone HCl (Oxyir) 5 mg PO Q6H PRN PRN PRN Reason: Pain Score 6-10/10 Sodium Chloride () 10 - 40 ml IV UD PRN PRN Reason: SALINE FLUSH Last Admin: 07/28/19 05:32 Dose: 10 ml Documented by: Zolpidem Tartrate (Ambien (Generic)) 5 mg PO QHS PRN PRN PRN Reason: INS Last Admin: 07/25/19 01:14 Dose: 5 mg Documented by: Medical Necessity - Tobacco Use Smoking Status: Former smoker Tobacco Use: Non-smoker Assessment/Plan All Active Problems (Last Updated 04/30/19 @ 10:52 by Adelia Ferrer) Right foot infection (Acute) Former tobacco use (Resolved) Ulcer of right foot with fat layer exposed (Acute) Diarrhea (Acute) Postoperative wound cellulitis (Acute) Morbid obesity (Acute) Diarrhea (Acute) Fracture, ankle (Resolved) Right foot cellulitis, possible osteomyelitis Ulcer right foot with bone exposed Status post arthroplasty of the first metatarsal phalangeal joint right foot on 06-11-2019 Wound lateral 1st toe and 4th toe down to subcutaneous tissue layer, right foot Reviewed findings and diagnostic data. s/p I+D debridement w/ bone biopsy on 07/27/2019 - continued improvement noted to foot today. Continue w/ wound vac to 1st MTPJ wound site, continue with Aquacel and gauze daily dressing changes to small ulcerations lateral 1st toe and 4th toe right foot. Elevate right lower extremity. To maintain a heel weightbearing status with a surgical shoe in place. Continue to follow cultures - so far no growth to bone, 1st MTPJ culture growing strep- finals cultures pending. Patient on antibiotics, ID/Dr. Albright following. Continue on DVT prophylaxis of SCD and enoxaparin. Medical management with hospitalist is appreciated. Discharge planning: Once home antibiotics are determined plan for discharge.
--- NOTE | 2019-07-29 10:20 | PN.ID_ITS ---
Patient Problems: Active and Suspected Problems (Last Updated 04/30/19 @ 10:52 by Adelia Ferrer) Right foot infection (Acute) ASH (obstructive sleep apnea) (Suspected) Ulcer of right foot with fat layer exposed (Acute) Diarrhea (Acute) Postoperative wound cellulitis (Acute) Morbid obesity (Acute) Diarrhea (Acute) Subjective: Feeling ok, no fever, no n/v/d. - Physical Exam Vitals/I&O's: Vital Signs Temp Pulse Resp BP Pulse Ox 97.5 F L 73 16 108/63 96 07/29/19 05:08 07/29/19 05:08 07/29/19 05:08 07/29/19 05:08 07/29/19 05:08 Oxygen Flow Rate (L/min) 0 Oxygen Delivery Method Room Air Weight: 157.4 kg Body Mass Index (BMI) 43.3 Intake and Output for Last 24 Hours 07/27/19 07/28/19 07/29/19 23:59 23:59 23:59 Intake Total 4328.17 / 4328.17 2314.75 / 2314.75 352.25 / 352.25 Balance 4328.17 / 4328.17 2314.75 / 2314.75 352.25 / 352.25 General: Alert, Cooperative, No apparent distress Lungs: Clear to auscultation, Normal air movement Cardiovascular: Regular rate, Regular Rhythm Abdomen: Soft, Non Tender, Non-Distended Skin: Ulcer/ Wound - Foot wrapped Microbiology Past 72 Hours 07/27/19 13:46 Incision/Surgical Site Gram Stain - Final 07/27/19 13:46 Incision/Surgical Site Wound Culture - Preliminary Streptococcus group B Coag Negative Staph 07/27/19 13:46 Bone - Toe Gram Stain - Final 07/27/19 13:46 Bone - Toe Wound Culture - Preliminary No growth-Final to follow 07/25/19 00:00 Wound - Aerobic & Anaerobic Swabs Gram Stain - Final 07/25/19 00:00 Wound - Aerobic & Anaerobic Swabs Wound Culture - Final Streptococcus agalactiae (B) Staphylococcus aureus Staphylococcus epidermidis Corynebacterium species 07/25/19 00:00 Wound - Aerobic & Anaerobic Swabs Anaerobic Culture - Final No anaerobic bacteria isolated. 07/24/19 21:40 Blood Culture (Wb) - Anticubital Right Blood Culture - Preliminary No growth in 48 hours. 07/24/19 21:38 Blood Culture (Wb) - Anticubital Left Blood Culture - Preliminary No growth in 48 hours. Current Medications Acetaminophen (Tylenol) 650 mg PO Q6H PRN PRN PRN Reason: Pain Score 1-3 /Temp>100.7 Last Admin: 07/27/19 19:21 Dose: 650 mg Documented by: Albuterol Sulfate (Ventolin Aerosols) 2.5 mg INHALATION Q2H PRN PRN PRN Reason: Dyspnea, wheezing Docusate Sodium (Colace) 100 mg PO BID PRN PRN PRN Reason: Constipation Enoxaparin Sodium (Lovenox) 40 mg SC DAILY@0600 [facility] Last Admin: 07/29/19 05:45 Dose: 40 mg Documented by: Hydralazine HCl (Apresoline Iv) 10 mg IV Q4H PRN PRN PRN Reason: SBP > 160 Sodium Chloride () 250 mls @ 15 mls/hr IV .[id number] PRN PRN Reason: Additional IVPB Infusion Last Infusion: 07/29/19 05:46 Dose: 0 mls/hr Documented by: Ceftriaxone Sodium 2 gm/ (Sodium Chloride) 50 mls @ 100 mls/hr IV Q24 [facility] Linezolid (Zyvox) 600 mg PO BID [facility] Last Admin: 07/28/19 22:17 Dose: 600 mg Documented by: Nutritional Formula (Abhijit - [place] Flavor) [facility] Last Admin: 07/29/19 08:14 Dose: 1 packet Documented by: Ondansetron HCl (Zofran) 4 mg IV Q8H PRN PRN PRN Reason: NAUSEA/VOMITING Oxycodone HCl (Oxyir) 5 mg PO Q6H PRN PRN PRN Reason: Pain Score 6-10/10 Sodium Chloride () 10 - 40 ml IV UD PRN PRN Reason: SALINE FLUSH Last Admin: 07/28/19 05:32 Dose: 10 ml Documented by: Zolpidem Tartrate (Ambien (Generic)) 5 mg PO QHS PRN PRN PRN Reason: INS Last Admin: 07/25/19 01:14 Dose: 5 mg Documented by: Medical Necessity - Tobacco Use Smoking Status: Former smoker Tobacco Use: Non-smoker Route of nutrition/ use of supplements: [] Nutritional Intake: [] IV Site: [] Saini Catheter: [] - Assessment/Plan Antibiotics: [] Assessment/Plan: [] Active and Suspected Problems (Last Updated 04/30/19 @ 10:52 by Adelia Ferrer) Right foot infection (Acute) ASH (obstructive sleep apnea) (Suspected) Ulcer of right foot with fat layer exposed (Acute) Diarrhea (Acute) Postoperative wound cellulitis (Acute) Morbid obesity (Acute) Diarrhea (Acute) R foot infection - wound cx with MSSA corynebacteria, CoNS, strep. On zosyn, linezolid. OR 07/[address] Benites for abscess and suspected osteo. Ordered picc. Ok for d/c on 4 weeks of iv ceftriaxone, stop date 08/24/19, and po linezolid for 11 more days. Weekly bmp, cbc, and esr. ID followup in 1-2 weeks. Will follow, wrote rx, d/w patient case coordinator.
--- NOTE | 2019-07-29 10:30 | CASEMGMT ---
RN AMRITA updated that patient will need IV ATBs at discharge. RN AMRITA called and updated [facility] regarding IV ATB. [facility] cannot follow for IV ATB. RN AMRITA updated patient and agreeable to send additional referrals. Referral sent to [facility] and they do not have staffing. [facility], awaiting acceptance. NARENDRA CROWE to update nursing regarding HHC and when to proceed with PICC line placement.
[2019-07-29] MEDS: Linezolid 600 MG Tablet PO ×2 (10:40→21:15)
[2019-07-29 11:00] VITALS: BP 113/64; PULSE 79; RESP 18; TEMP 36.6; O2SAT 96
--- NOTE | 2019-07-29 11:32 | DCINST_ITS ---
- Discharge Diagnoses Current Active Problems: Current Active and Chronic Problems (Last Updated 04/30/19 @ 10:52 by Adelia Ferrer) Right foot infection (Acute) Morbid obesity (Chronic) Ulcer of right foot with fat layer exposed (Acute) Diarrhea (Acute) Postoperative wound cellulitis (Acute) Morbid obesity (Acute) Diarrhea (Acute) You will use the following diet at home:: No restrictions Your food should be the consistency of: Regular Weight Bearing Status: - - heel weight-bearing RLE with surgical shoe in place. Keep extremity elevated above heart level: Right Leg Additional Activity Instructions:: Continue w/ wound vac to 1st MTPJ wound site, continue with Aquacel and gauze daily dressing changes to small ulcerations lateral 1st toe and 4th toe right foot. Elevate right lower extremity. Call your doctor if your incision/area has: Continuous Slow Oozing, Sudden Increased Bleeding, Increased Pain/ Swelling Call your doctor if you observe: Fever of 101 or Higher Allergies/Adverse Reactions: Allergies No Known Allergies Allergy (Verified 07/24/19 20:53) Medications to take at Discharge Acetaminophen [Tylenol Tablet] 650 mg PO Q6H PRN PRN tab 07/29/19 Ceftriaxone 2 gm IV Q24 26 Days #26 vial 07/29/19 Linezolid 600 mg PO BID #22 tab 07/29/19 The following prescriptions were given: Ceftriaxone 2 gm IV Q24 26 Days #26 vial Prescription Printed Linezolid 600 mg PO BID #22 tab Transmission Status: Received by [id number] Primary Care Physician: Licha Brar MD [Primary Care Provider] - Within 2 Weeks Test Results: Test results from this visit will be discussed in further detail at your follow- up appointment, if applicable. Please Follow Up With: Eliu Benites DPM - Podiatry When: 1-2 weeks Please Follow Up With: Maksim Albright MD - Infectious Disease When: 1-2 weeks Proposed Discharge Date: 07/29/19
--- NOTE | 2019-07-29 11:38 | PCM.PN.HOSP ---
Patient Problems: Active and Suspected Problems (Last Updated 04/30/19 @ 10:52 by Adelia Ferrer) Right foot infection (Acute) ASH (obstructive sleep apnea) (Suspected) Ulcer of right foot with fat layer exposed (Acute) Postoperative wound cellulitis (Acute) Reason for Visit: right foot infection Vitals/I&O's: Vital Signs Temp Pulse Resp BP Pulse Ox 36.4 C L 73 16 108/63 96 07/29/19 05:08 07/29/19 05:08 07/29/19 05:08 07/29/19 05:08 07/29/19 05:08 Oxygen Flow Rate (L/min) 0 Oxygen Delivery Method Room Air Weight: 157.4 kg Body Mass Index (BMI) 43.3 Intake and Output for Last 24 Hours 07/27/19 07/28/19 07/29/19 23:59 23:59 23:59 Intake Total 4328.17 / 4328.17 2314.75 / 2314.75 402.25 / 402.25 Balance 4328.17 / 4328.17 2314.75 / 2314.75 402.25 / 402.25 General: Alert, Cooperative, No apparent distress HEENT: Atraumatic, Normocephalic Oral: Moist Mucosa, No Gingival or Mucosal Lesions/ Ulcerations Neck: No Nodes, Thyroid Normal Size and Texture Lungs: Clear to auscultation, Normal air movement, No rhonchi, No wheeze, No rales Cardiovascular: Regular rate, Regular Rhythm, Normal S1, Normal S2, No murmurs Abdomen: Bowel Sounds Present, Soft, Non Tender, Non-Distended, No Hepato-splenomegaly Extremities: No edema, No Calf Tenderness, - - right foot wrapped--did not remove. Psych/Mental Status: Normal Affect, Appropriate Microbiology Past 72 Hours 07/27/19 13:46 Incision/Surgical Site Gram Stain - Final 07/27/19 13:46 Incision/Surgical Site Wound Culture - Preliminary Streptococcus group B Coag Negative Staph 07/27/19 13:46 Incision/Surgical Site Anaerobic Culture - Preliminary Checking for anaerobes, further studies to follow. 07/27/19 13:46 Bone - Toe Gram Stain - Final 07/27/19 13:46 Bone - Toe Wound Culture - Preliminary No growth-Final to follow 07/27/19 13:46 Bone - Toe Anaerobic Culture - Preliminary No growth in 48 hours. 07/25/19 00:00 Wound - Aerobic & Anaerobic Swabs Gram Stain - Final 07/25/19 00:00 Wound - Aerobic & Anaerobic Swabs Wound Culture - Final Streptococcus agalactiae (B) Staphylococcus aureus Staphylococcus epidermidis Corynebacterium species 07/25/19 00:00 Wound - Aerobic & Anaerobic Swabs Anaerobic Culture - Final No anaerobic bacteria isolated. 07/24/19 21:40 Blood Culture (Wb) - Anticubital Right Blood Culture - Preliminary No growth in 48 hours. 07/24/19 21:38 Blood Culture (Wb) - Anticubital Left Blood Culture - Preliminary No growth in 48 hours. Current Medications Acetaminophen (Tylenol) 650 mg PO Q6H PRN PRN PRN Reason: Pain Score 1-3 /Temp>100.7 Last Admin: 07/27/19 19:21 Dose: 650 mg Documented by: Albuterol Sulfate (Ventolin Aerosols) 2.5 mg INHALATION Q2H PRN PRN PRN Reason: Dyspnea, wheezing Docusate Sodium (Colace) 100 mg PO BID PRN PRN PRN Reason: Constipation Enoxaparin Sodium (Lovenox) 40 mg SC DAILY@0600 [facility] Last Admin: 07/29/19 05:45 Dose: 40 mg Documented by: Hydralazine HCl (Apresoline Iv) 10 mg IV Q4H PRN PRN PRN Reason: SBP > 160 Sodium Chloride () 250 mls @ 15 mls/hr IV .[id number] PRN PRN Reason: Additional IVPB Infusion Last Infusion: 07/29/19 05:46 Dose: 0 mls/hr Documented by: Ceftriaxone Sodium 2 gm/ (Sodium Chloride) 50 mls @ 100 mls/hr IV Q24 [facility] Last Admin: 07/29/19 11:32 Dose: 100 mls/hr Documented by: Linezolid (Zyvox) 600 mg PO BID [facility] Last Admin: 07/29/19 10:40 Dose: 600 mg Documented by: Nutritional Formula (Abhijit - [place] Flavor) [facility] Last Admin: 07/29/19 08:14 Dose: 1 packet Documented by: Ondansetron HCl (Zofran) 4 mg IV Q8H PRN PRN PRN Reason: NAUSEA/VOMITING Oxycodone HCl (Oxyir) 5 mg PO Q6H PRN PRN PRN Reason: Pain Score 6-10/10 Sodium Chloride () 10 - 40 ml IV UD PRN PRN Reason: SALINE FLUSH Last Admin: 07/28/19 05:32 Dose: 10 ml Documented by: Zolpidem Tartrate (Ambien (Generic)) 5 mg PO QHS PRN PRN PRN Reason: INS Last Admin: 07/25/19 01:14 Dose: 5 mg Documented by: Medical Necessity - Tobacco Use Smoking Status: Former smoker Tobacco Use: Non-smoker Assessment/Plan All Active Problems (Last Updated 04/30/19 @ 10:52 by Adelia Ferrer) Right foot infection (Acute) Former tobacco use (Resolved) Ulcer of right foot with fat layer exposed (Acute) Postoperative wound cellulitis (Acute) Fracture, ankle (Resolved) 1. right foot infection concern for OM on 1st MTP and phalanges. I+D w bone biopsy on 07/26 on pip/tazo and linezolid podiatry and ID following wound vac in place 2. VTE prophylaxis: LMWH Medically stable for discharge. Inpatient E&M: 52130 Subs Hosp L2
--- NOTE | 2019-07-29 11:59 | DCINST_ITS ---
Discharge Activity: May Not Drive Weight Bearing Status: - - heel weight-bearing RLE with surgical shoe in place. Keep extremity elevated above heart level: Right Leg - Keep right foot elevated as much as possible. Additional Activity Instructions:: Continue w/ wound vac to 1st MTPJ wound site, continue with Aquacel and gauze daily dressing changes to small ulcerations lateral 1st toe and 4th toe right foot. Elevate right lower extremity. Call your doctor if your incision/area has: Continuous Slow Oozing, Sudden Increased Bleeding, Increased Pain/ Swelling Call your doctor if you observe: Fever of 101 or Higher Allergies/Adverse Reactions: Allergies No Known Allergies Allergy (Verified 07/24/19 20:53) Medications to take at Discharge Acetaminophen [Tylenol Tablet] 650 mg PO Q6H PRN PRN tab 07/29/19 Ceftriaxone 2 gm IV Q24 26 Days #26 vial 07/29/19 Linezolid 600 mg PO BID #22 tab 07/29/19 The following prescriptions were given: Ceftriaxone 2 gm IV Q24 26 Days #26 vial Prescription Printed Linezolid 600 mg PO BID #22 tab Transmission Status: Received by [facility] Primary Care Physician: Licha Brar MD [Primary Care Provider] - Within 2 Weeks Test Results: Test results from this visit will be discussed in further detail at your follow- up appointment, if applicable. Please Follow Up With: Eliu Benites DPM - Podiatry When: 1 week, sooner if needed Please Follow Up With: Maksim Albright MD - Infectious Disease When: 1-2 weeks Proposed Discharge Date: 07/29/19
--- NOTE | 2019-07-29 12:45 | CASEMGMT ---
RN AMRITA Face to Face with patient for initial transition planning/care coordination assessment. RN CM introduced self and role at [facility]. Patient lying in bed, alert and oriented. Patient willing to participate in assessment and is able to answer all questions appropriately. Care providers, pharmacy, and demographics verified. Patient wishes to discharge home, denies need for home health at this time. Patient states he has no further needs or concerns at this time. CM to follow for discharge planning needs that may arise. PCP: Marvin Specialists: Oswaldo, podiatry; Delfino, plastics; Mariza, transformation architect Preferred Pharmacy: [facility] Insurance: [employer] Prescription Benefit: yes Living Will/HPOA: none LNOK: significant otherBria Living Arrangements: Patient lives with significant other in 2 story home with bed and bath on first floor. 3 steps to enter the home. Patient states he is independent at home. Transportation: Bria reid DME/HHC: Patient states he has walker and crutches at home. No previous HHC Disposition Plan: Patient to discharge home with family support and follow-up plans in place. Adela DO, RN, CM
--- NOTE | 2019-07-29 13:20 | CASEMGMT ---
Addendum entered by Adela Sorensen 07/29/19 14:39: NARENDRA CROWE updated by [facility] that patient is covered at 100% and will deliver atbs this evening. Original Note: RN CM received call back from [facility] and they are able to accept the patient. RN CM updated nursing and to proceed with Picc Line placement. RN AMRITA sent referral to [facility] to arrange for IV ATB to be delivered.
--- NOTE | 2019-07-29 14:08 | NURSING ---
FLASH RANGING CREWMEMBER notified/updated case management was able to make home going arrangements so need picc placed now.
--- NOTE | 2019-07-29 14:15 | CHAPLAIN ---
Type of Pastoral Visit ___ Initial Visit _x__ Follow-up Visit ___ On-call Visit ___ General Patient Visit ___ Spiritual Assessment ___ Family Conference ___ Bereavement ___ Rapid Response ___ Code Blue ___ Other (describe below) Pastoral Care Referral From _x__ Patient ___ Family ___ Nurse ___ Physician ___ Ultrasound Technol ___ Ticket Maker ___ Other (describe below) Sacrament/Intervention _x__ Active listening ___ Anointing ___ Protestant ___ Bereavement ___ Communion ___ Estela exploration ___ ___ Life review _x__ Prayer ___ Reconciliation ___ Sacrament of Sick ___ Supportive presence ___ Wedding ___ Other (describe below) Pastoral Comments
--- NOTE | 2019-07-29 16:00 | NURSING ---
called access clerk awaiting to be told ETA for nurse to place picc line, aware per their coordinator awaiting a return call from their nurse with ETA. aware they will call when have an ETA
[2019-07-29 16:53] VITALS: BP 103/65; PULSE 88; RESP 18; TEMP 36.7; O2SAT 97
--- NOTE | 2019-07-29 20:28 | DS.PCM_ITS ---
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 Patient is ~6 weeks s/p 1st metatarsal phalageal hallux varus correction with resection of base of proximal phalanx and part of head of 1st metatarsal, as well as 2-5 hammer to correction. Patient developed infection to the 1st metatarsal phalangeal joint site end of last week, and was advised to go to the ER for further evaluation. Patient was noted to have increased WBC at that time. New right foot xrays as well as a CT scan was ordered and there was concern for osteomyelitis, but no abscess seen. MRI was ordered yesterday and there is also concern for osteomyelitis with abscess to the 1st metatarsal phalangeal joint. There was noted to be bone marrow edema to the 5th toe but there are absolutely no signs/symptoms of infection to the 5th toe and MRI findings c/w post surgical changes. Culture of the wound site of the 1st metatarsal phalangeal joint is growing staph aureus, strep, and Coag neg staph - finals pending. Patient is on antibiotics - Zosyn and Zyvox, ID/Dr. Hollins is on board. There is residual edema and erythema over the 1st metatarsal phalangeal joint after several days of antibiotics. Given the findings we discussed incision, drainage and debridement w/ bone biopsy of the 1st metatarsal phalangeal joint. Which was completed. Foot showed continued improvement post procedure. Dr. Albright as well as Hospitalist service consulted and followed throughout hospital stay. Patient was discharged w/ wound vac as well as IV antibiotics per Infectious Disease/Dr. Albright. Objective: See last progress note. - Physical Exam Vitals/I&O's: Vital Signs Temp Pulse Resp BP Pulse Ox 98.2 F 78 22 H 140/81 H 97 07/29/19 21:17 07/29/19 21:17 07/29/19 21:17 07/29/19 21:17 07/29/19 21:17 Oxygen Flow Rate (L/min) 0 Oxygen Delivery Method Room Air Weight: 157.4 kg Body Mass Index (BMI) 43.3 Intake and Output for Last 24 Hours 07/28/19 07/29/19 07/30/19 23:59 23:59 23:59 Intake Total 2314.75 / 2314.75 692.25 / 692.25 Balance 2314.75 / 2314.75 692.25 / 692.25 General: Alert, Oriented x3, Cooperative, No apparent distress Microbiology Past 72 Hours 07/27/19 13:46 Incision/Surgical Site Gram Stain - Final 07/27/19 13:46 Incision/Surgical Site Wound Culture - Final Streptococcus agalactiae (B) Staphylococcus epidermidis 07/27/19 13:46 Incision/Surgical Site Anaerobic Culture - Final No anaerobic bacteria isolated. 07/27/19 13:46 Bone - Toe Gram Stain - Final 07/27/19 13:46 Bone - Toe Wound Culture - Final No growth aerobically. 07/27/19 13:46 Bone - Toe Anaerobic Culture - Preliminary No growth in 48 hours. 07/24/19 21:40 Blood Culture (Wb) - Anticubital Right Blood Culture - Final No growth in 5 days. 07/24/19 21:38 Blood Culture (Wb) - Anticubital Left Blood Culture - Final No growth in 5 days. 07/25/19 00:00 Wound - Aerobic & Anaerobic Swabs Gram Stain - Final 07/25/19 00:00 Wound - Aerobic & Anaerobic Swabs Wound Culture - Final Streptococcus agalactiae (B) Staphylococcus aureus Staphylococcus epidermidis Corynebacterium species 07/25/19 00:00 Wound - Aerobic & Anaerobic Swabs Anaerobic Culture - Final No anaerobic bacteria isolated. Discharge Activity: May Not Drive Weight Bearing Status: - - heel weight-bearing RLE with surgical shoe in place. Keep extremity elevated above heart level: Right Leg - Keep right foot elevated as much as possible. Additional Activity Instructions:: Continue w/ wound vac to 1st MTPJ wound site, continue with Aquacel and gauze daily dressing changes to small ulcerations lateral 1st toe and 4th toe right foot. Elevate right lower extremity. Call your doctor if your incision/area has: Continuous Slow Oozing, Sudden Increased Bleeding, Increased Pain/ Swelling Call your doctor if you observe: Fever of 101 or Higher Home Medications: Medications to take at Discharge Acetaminophen [Tylenol Tablet] 650 mg PO Q6H PRN PRN tab 07/29/19 Ceftriaxone 2 gm IV Q24 26 Days #26 vial 07/29/19 Linezolid 600 mg PO BID #22 tab 07/29/19 Following Prescrptions Were Given to Patient: Ceftriaxone 2 gm IV Q24 26 Days #26 vial Prescription Printed Linezolid 600 mg PO BID #22 tab Transmission Status: Received by [id number] Primary Care Physician: Licha Brar MD [Primary Care Provider] - Within 2 Weeks Please Follow Up With: Eliu Benites DPM - Podiatry When: 1 week, sooner if needed Please Follow Up With: Maksim Albright MD - Infectious Disease When: 1-2 weeks Medical Necessity - Tobacco Use Smoking Status: Former smoker Tobacco Use: Non-smoker Meaningful Use Info Meaningful Use Diagnoses (Choose all that apply): None applicable
[2019-07-29 21:17] VITALS: BP 140/81; PULSE 78; RESP 22; TEMP 36.8; O2SAT 97
--- NOTE | 2019-07-29 21:57 | NURSING ---
PICC information faxed to [facility], per case management request.
== END 2019-07-29 21:36 | disposition home health service (06) | DRG 711 ==
LOC: ED 22:23 → MS3 07-25 00:05
PROVIDERS: Family Medicine; Podiatrist; Admitting Provider Podiatrist; Emergency Provider Emergency Medicine; PCP Internal Medicine; Referring Provider Podiatrist
PROC: 0S9M0ZZ Drainage of Right Metatarsal-Phalangeal Joint, Open Approach (ICD-10-PCS; principal; 2019-07-27 12:20)
DX: T81.41XA Infection following a procedure, superficial incisional surgical site, initial encounter (principal); T81.31XA Disruption of external operation (surgical) wound, not elsewhere classified, initial encounter; L03.115 Cellulitis of right lower limb; E66.01 Morbid (severe) obesity due to excess calories; Z68.41 Body mass index [BMI] 40.0-44.9, adult; G47.33 Obstructive sleep apnea (adult) (pediatric); M86.8X7 Other osteomyelitis, ankle and foot; B95.61 Methicillin susceptible Staphylococcus aureus infection as the cause of diseases classified elsewhere; B95.5 Unspecified streptococcus as the cause of diseases classified elsewhere; L97.512 Non-pressure chronic ulcer of other part of right foot with fat layer exposed; G62.9 Polyneuropathy, unspecified; Y83.8 Other surgical procedures as the cause of abnormal reaction of the patient, or of later complication, without mention of misadventure at the time of the procedure; Z87.891 Personal history of nicotine dependence; R19.7 Diarrhea, unspecified; L02.611 Cutaneous abscess of right foot
CPT/HCPCS: 36415; 36569; 73630; 73701; 73718; 80053; 83036; 83605; 83735; 85025; 85610; 85652; 85730; 86140; 87015; 87040; 87070; 87075; 87077; 87102; 87106; 87116; 87186; 87205; 87206; 87635; 87640; 88304; 88311; 94762; 97802; 99251; 99285; G2023; J7030; J7040; J7050; J7120; Q9967; A4216; G0463; J0696; J2405; U0003

== ENCOUNTER 2019-08-11 10:14 | Outpatient (RCR) | payer MEDICAID, SELFPAY ==
[2019-07-27 08:32] VITALS: BMI 43.3
[2019-08-06 13:29] LABS: Erythrocyte Sedimentation Rate 18 mm/hr (0-15)
[2019-08-06 13:31] LABS: Hematocrit 44.4 % (40-54); Mean Corp Hgb Conc 33.8 g/dL (32-36); Mean Corpuscular Hgb 29.4 pg (27.0-32.0); Mean Corpuscular Volume 87.1 fL (80-94); Mean Platelet Vol. 9.6 fl (6.2-12.0); Platelet Count 197 K/mm3 (150-450); RBC Distribution Width CV 13.3 % (11.6-14.6); RBC Distribution Width SD 41.3 fl (35.1-43.9); White Blood Count 9.7 K/mm3 (4.4-11.0)
[2019-08-06 13:34] LABS: Anion Gap 4 (5-15); BUN 18 mg/dL (7-18); BUN/Creat Ratio 29.9 RATIO (10-20); Chloride 106 mmol/L (98-107); EST Glomerular Filtration Rate 155 mL/min (>60); Est Glom Filt Rate - Afr Amer 187 mL/min (>60); Glucose 107 mg/dL (74-106); Potassium 3.8 mmol/L (3.5-5.1); Sodium Level 140 mmol/L (136-145)
[2019-08-11 14:37] LABS: Hematocrit 45.3 % (40-54); Hemoglobin 14.8 g/dL (13.0-16.5); Mean Corp Hgb Conc 32.7 g/dL (32-36); Mean Corpuscular Volume 88.6 fL (80-94); Mean Platelet Vol. 9.6 fl (6.2-12.0); Platelet Count 150 K/mm3 (150-450); RBC Distribution Width CV 13.6 % (11.6-14.6); RBC Distribution Width SD 43.1 fl (35.1-43.9); Red Blood Count 5.11 M/mm3 (4.6-6.2); White Blood Count 8.2 K/mm3 (4.4-11.0)
[2019-08-11 14:42] LABS: Erythrocyte Sedimentation Rate 11 mm/hr (0-15)
[2019-08-11 14:50] LABS: Anion Gap 7 (5-15); BUN 16 mg/dL (7-18); BUN/Creat Ratio 21.9 RATIO (10-20); Calcium,Total 8.8 mg/dL (8.5-10.1); Chloride 106 mmol/L (98-107); Creatinine, Serum 0.73 mg/dL (0.70-1.30); EST Glomerular Filtration Rate 124 mL/min (>60); Est Glom Filt Rate - Afr Amer 150 mL/min (>60); Glucose 159 mg/dL (74-106); Potassium 3.6 mmol/L (3.5-5.1); Sodium Level 141 mmol/L (136-145)
== END 2019-08-11 18:00 | disposition home or self-care (01) ==
LOC: HHLAB 10:14
PROVIDERS: PCP Internal Medicine; Visit Provider Internal Medicine Infectious Disease
DX: M00.9 Pyogenic arthritis, unspecified (principal)
CPT/HCPCS: 80048; 85027; 85652

== ENCOUNTER 2021-03-03 12:07 | Outpatient (CLI) | payer MEDICAID, SELFPAY ==
[2021-03-03 12:15] VITALS: BP 137/96; PULSE 99; RESP 16; TEMP 36.5; O2SAT 95; BMI 48.7
[2021-03-03] MEDS: 0.9% Saline Lock 10 ML Syringe IV (12:20)
[2021-03-03 12:56] VITALS: BP 142/94; PULSE 90; RESP 16; TEMP 36.8; O2SAT 99
[2021-03-03 13:47] VITALS: BP 134/89; PULSE 95; RESP 16; TEMP 37.1; O2SAT 99
== END 2021-03-03 23:59 | disposition home or self-care (01) ==
LOC: MS3OUT 12:08 → MS3 12:08
PROVIDERS: PCP Internal Medicine; Referring Provider Nurse Practitioner Adult Health; Visit Provider Nurse Practitioner Adult Health
DX: Z23 Encounter for immunization (principal); Z68.43 Body mass index [BMI] 50.0-59.9, adult; U07.1 COVID-19; E66.9 Obesity, unspecified
CPT/HCPCS: J7050; M0245; Q0245; A4216

== ENCOUNTER 2021-04-27 10:00 | Observation (INO) | payer MEDICAID, SELFPAY ==
[2021-04-27 10:01] VITALS: BP 138/85; PULSE 92; RESP 18; TEMP 35.8; O2SAT 97; BMI 51.5
[2021-04-27 10:08] VITALS: BP 138/85; PULSE 92; RESP 18; TEMP 35.8; O2SAT 97
--- NOTE | 2021-04-27 10:12 | RAD_ITS ---
STUDY: X-RAY - LEFT FOOT CLINICAL: Left foot injury with blister from hiking 2 weeks ago, left foot pain. TECHNIQUE: 3 view(s) of the foot. COMPARISON: Radiographs 12/14/2016. FINDINGS: There are plantar and posterior calcaneal enthesophytes. There are marginal osteophytes and mild joint space narrowing of the talonavicular articulation. There is joint space narrowing of the second tarsometatarsal articulation. Normal metatarsi. There is joint space narrowing and subchondral sclerosis with subchondral cystic change of the metatarsophalangeal joint of the great toe after resection of the base of the first proximal phalanx. Normal tibial and fibular sesamoid bones. Normal interphalangeal joint of the great toe. Normal phalanges of the great toe. There is flattening of the second metatarsal head suggestive of chronic subchondral stress fracture. There is arthrosis of the second metatarsophalangeal joint. Normal interphalangeal joints and phalanges of the lesser toes. The soft tissue structures are unremarkable. RAD/Foot min 3 Views IMPRESSION: Flattening of the second metatarsal head suggestive of chronic subchondral stress fracture. Degenerative changes of the left foot. Electronically Signed: Kali Patel MD at 11:32 EST ,
--- NOTE | 2021-04-27 10:12 | EDS_ITS ---
HPI <ANA Nicholson - Last Filed: 04/27/21 11:35> History of Present Illness Chief Complaint: Wound Narrative Narrative: 49-year-old male with no PMH presents with left foot wound. He was hiking and developed a blister on the plantar surface of his left foot approximately 3 weeks ago. He states he picked the skin off. Since then the wound has worsened but he was just putting a bandage on it. Last night his ankle started to swell and today the swelling became worse with redness up his leg. Today he feels slightly lightheaded and nauseated. Denies fever or vomiting. No history of diabetes. He has seen Dr. Baker (podiatry) in the past for fractures but never had a foot infection. PFSH <ANA Nicholson - Last Filed: 04/27/21 11:35> PFSH Medical History (Updated 04/27/21 @ 11:33 by ANA Nicholson) Fracture, ankle Home Medications NK 04/27/21 [History Last Taken Unknown] Allergy/AdvReac Type Severity Reaction Status Date / Time No Known Allergies Allergy Verified 04/27/21 10:02 Family History (Updated 04/30/19 @ 10:54 by Adelia Ferrer) Father Colon cancer Diabetes Skin cancer Mother Hypertension Surgical History History of ankle surgery History of tonsillectomy Hx of foot surgery Social History (Updated 04/30/19 @ 11:02 by Adelia Ferrer) Smoking Status: Former smoker Smokeless tobacco user: chewing tobacco alcohol intake: current alcohol intake frequency: holidays/special occasions only substance use type: does not use frequency: 1-2 times per week ROS <ANA Nicholson - Last Filed: 04/27/21 11:35> ROS ED Constitutional Constitutional ED: Denies chills or fever(s) Eyes Eyes: Denies change in vision ENT ENT ED: Denies rhinorrhea or sore throat Cardiovascular Cardiovascular: Denies chest pain or palpitations Respiratory/Chest Respiratory/Chest: Denies cough or dyspnea Gastrointestinal Gastrointestinal: Reports nausea; Denies abdominal pain, constipation, diarrhea or vomiting Genitourinary Genitourinary ED: Denies dysuria EXAM <ANA Nicholson - Last Filed: 04/27/21 11:35> Physical Exam Narrative Exam Narrative: CONST: Patient sitting in no acute distress. EYES: Normal inspection. ENT: Normal inspection, moist mucous membranes. NECK: Normal inspection. RESP: No respiratory distress, CTAB. CVS: Regular rate and rhythm, no murmur, no gallop. SKIN: 2 x 2 centimeter full-thickness ulcer on the plantar surface of the left foot at the base of the great toe. Surrounding callus. No fluctuance or crepitus, no drainage. Warmth and erythema extending up the dorsum of the foot to the mid tibia. EXTREMITIES: Left lower extremity has soft tissue swelling of the ankle and lower leg, 2+ DP pulse. NEURO: Oriented x4. PSYCH: Normal affect. Const Vital Signs: 04/27/21 10:01 04/27/21 10:08 Temperature 96.5 F L 96.5 F L Temperature Source Temporal Temporal Pulse Rate 92 92 Respiratory Rate 18 18 Blood Pressure 138/85 H 138/85 H Blood Pressure Mean 102 102 Pulse Ox 97 97 Oxygen Delivery Method Room Air Room Air <Dr. Gennaro Mcdonald MD - Last Filed: 04/27/21 10:28> Physical Exam Const Vital Signs: 04/27/21 10:01 04/27/21 10:08 Temperature 96.5 F L 96.5 F L Temperature Source Temporal Temporal Pulse Rate 92 92 Respiratory Rate 18 18 Blood Pressure 138/85 H 138/85 H Blood Pressure Mean 102 102 Pulse Ox 97 97 Oxygen Delivery Method Room Air Room Air [facility] <ANA Nicholson - Last Filed: 04/27/21 11:35> [facility] Narrative Medical decision making narrative: Patient has a left foot wound and developed swelling and redness of the lower extremity. He appears well and nontoxic. Afebrile and vital signs within normal limits. He has a full-thickness ulcer on the plantar surface at the base of the great toe. There is swelling and erythema extending up the dorsum of the foot and leg to just below the knee. The extremity is neurovascularly intact. There is no sign of abscess or purulent drainage on exam. Labs show normal white count and mildly elevated inflammatory markers. BMP is unremarkable except for glucose of 195 glucose is 185 and BMP is otherwise unremarkable. ED attending interpretation of left foot x-ray shows degenerative changes of the digits but no subcutaneous air or evidence of osteomyelitis. Patient was treated with IV Unasyn and due to the extent of the cellulitis will be admitted for IV antibiotics. 1. Left foot wound 2. Left leg cellulitis Lab Data Labs: Laboratory Results - last 24 hr 04/27/21 04/27/21 10:30 10:30 WBC 9.8 RBC 5.28 Hgb 15.5 Hct 45.2 MCV 85.6 MCH 29.4 MCHC 34.3 RDW Std Deviation 41.8 RDW Coeff of Gabriella 13.5 Plt Count 227 MPV 9.5 Immature Gran % (Auto) 0.500 Neut % (Auto) 64.2 Lymph % (Auto) 23.9 [place] % (Auto) 9.4 Eos % (Auto) 1.7 Baso % (Auto) 0.3 Absolute Neuts (auto) 6.3 Absolute Lymphs (auto) 2.33 Nucleated RBC % 0.2 ESR 21 H Sodium 138 Potassium 3.8 Chloride 107 Carbon Dioxide 28.0 Anion Gap 3 L BUN 16 Creatinine 0.83 Estim Creat Clear Calc 134.33 Est GFR (MDRD) Af Amer 128 Est GFR (MDRD) Non-Af 106 BUN/Creatinine Ratio 19.2 Glucose 185 H Calcium 9.3 C-React Prot Ext Range 22.30 H Radiography Diagnostic Testing: Clinical Impression(s) from Imaging Studies Foot X-Ray 04/27/21 10:12 IMPRESSION: Flattening of the second metatarsal head suggestive of chronic subchondral stress fracture. Degenerative changes of the left foot. Electronically Signed: Kali Patel MD at 11:32 EST , <Dr. Gennaro Mcdonald MD - Last Filed: 04/27/21 10:28> [facility] MDM Narrative Medical decision making narrative: 45-year-old male denies any significant past medical history. Denies diabetes. About 2 weeks ago on the bottom of his left foot on the pad of his great toe he had a callus. He says been there about 2 weeks. Yesterday noticed redness and swelling to his foot and lower leg with some associated discomfort. He denies fever or chills. He denies fever. I evaluated this patient with our physician assistant city attorney. Otherwise his exam is benign. There is no inguinal lymphadenopathy. He does have swelling and redness and cellulitis from his left foot all the way up to just below his knee. He is able to wiggle his toes. He has a normal DP pulse. Patient be started on IV Unasyn 3 g. Labs and x-ray to be obtained. Will speak to the hospitalist about admission. Lab Data Labs: Laboratory Results - last 24 hr 04/27/21 04/27/21 10:30 10:30 WBC 9.8 RBC 5.28 Hgb 15.5 Hct 45.2 MCV 85.6 MCH 29.4 MCHC 34.3 RDW Std Deviation 41.8 RDW Coeff of Gabriella 13.5 Plt Count 227 MPV 9.5 Immature Gran % (Auto) 0.500 Neut % (Auto) 64.2 Lymph % (Auto) 23.9 [place] % (Auto) 9.4 Eos % (Auto) 1.7 Baso % (Auto) 0.3 Absolute Neuts (auto) 6.3 Absolute Lymphs (auto) 2.33 Nucleated RBC % 0.2 ESR 21 H Sodium 138 Potassium 3.8 Chloride 107 Carbon Dioxide 28.0 Anion Gap 3 L BUN 16 Creatinine 0.83 Estim Creat Clear Calc 134.33 Est GFR (MDRD) Af Amer 128 Est GFR (MDRD) Non-Af 106 BUN/Creatinine Ratio 19.2 Glucose 185 H Calcium 9.3 C-React Prot Ext Range 22.30 H Radiography Diagnostic Testing: Clinical Impression(s) from Imaging Studies Foot X-Ray 04/27/21 10:12 IMPRESSION: Flattening of the second metatarsal head suggestive of chronic subchondral stress fracture. Degenerative changes of the left foot. Electronically Signed: Kali Patel MD at 11:32 EST , Discharge Plan Triage Chief Complaint: Wound ED Provider: Michelle Magdaleno Dx/Rx/DC Orders Clinical Impression: Blister of foot, left, infected Prescriptions: No Action NK RF: 0 Primary Care Provider: Licha Brar Referrals: Licha Brar MD [Primary Care Provider] -
[2021-04-27 10:45] LABS: Absolute Lymphocyte Count 2.33 X10^3/uL (0.83-4.51); Absolute Neutrophil Count 6.3 X10^3/uL (2.0-7.7); Basophil# 0.03 X10^3/uL; Basophil% 0.3 % (0-1); Eosinophil# 0.17 X10^3/uL; Eosinophils% 1.7 % (0-5); Hematocrit 45.2 % (40-54); Hemoglobin 15.5 g/dL (13.0-16.5); Lymphocyte # 2.33 X10^3/ul (0.83-4.51); Lymphocyte % 23.9 % (19-41); Mean Corp Hgb Conc 34.3 g/dL (32-36); Mean Corpuscular Hgb 29.4 pg (27.0-32.0); Mean Corpuscular Volume 85.6 fL (80-94); Mean Platelet Vol. 9.5 fl (6.2-12.0); Monocyte# 0.92 X10^3/uL; Monocyte% 9.4 % (0-10); NRBC Flagged by Analyzer 0.2 % (0-5); Neutrophil # 6.25 X10^3/uL (2.7-7.7); Neutrophil % 64.2 % (47-70); Platelet Count 227 K/mm3 (150-450); RBC Distribution Width CV 13.5 % (11.6-14.6); RBC Distribution Width SD 41.8 fl (35.1-43.9); Red Blood Count 5.28 M/mm3 (4.6-6.2); White Blood Count 9.8 K/mm3 (4.4-11.0)
[2021-04-27 10:48] LABS: Erythrocyte Sedimentation Rate 21 mm/hr (0-20)
[2021-04-27 10:58] LABS: Anion Gap 3 (5-15); BUN 16 mg/dL (7-18); BUN/Creat Ratio 19.2 RATIO (10-20); Calcium,Total 9.3 mg/dL (8.5-10.1); Chloride 107 mmol/L (98-107); Creatinine, Serum 0.83 mg/dL (0.70-1.30); EST Glomerular Filtration Rate 106 mL/min (>60); Est Glom Filt Rate - Afr Amer 128 mL/min (>60); Estimated Creatinine Clearance 134.33 ml/min; Glucose 185 mg/dL (74-106); Potassium 3.8 mmol/L (3.5-5.1); Sodium Level 138 mmol/L (136-145)
[2021-04-27 12:00] VITALS: BP 124/80; PULSE 89; RESP 16; TEMP 36.7; O2SAT 96
[2021-04-27 12:18] VITALS: BP 124/80; PULSE 89; RESP 16; TEMP 36.7; O2SAT 96
--- NOTE | 2021-04-27 12:20 | CASEMGMT ---
NARENDRA CROWE Assessment: RN CM to room to meet with patient for initial transition planning/care coordination assessment. NARENDRA CROWE introduced self and role at [facility]. Patient voices understanding and consents to assessment at this time. No visitors present at bedside. Patient is alert and oriented and answers all questions appropriately, sitting up on ER cart in no apparent distress. Care providers, pharmacy, and demographics verified/updated at this time. Admitting Dx: LLE cellulitis PCP: Maykel Specialists: [facility]- podiatrmarta Preferred Pharmacy: [facility] Insurance: [employer] [facility] Prescription Benefit: yes Living Will/HPOA: Patient denies having a living will or HPOA. LNOK: Candice Chino Living Arrangements: Patient lives with and two children (ages 17 and 19) in second story apartment with 20 steps to enter the home with a handrail present. Patient states independent with ADLs prior to hospitalization. 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 Smoking/ETOH: Former smoker (quit 15 years ago), admits to occasional ETOH use Transportation: Patient drives self and denies transportation concerns. DME/HHC/SNF: Patient has crutches available in the home. Denies having any other DME in the home. Previous HHC with home IV antibiotic therapy in 2020 through [facility] and [facility]. Denies previous SNF stays. Patient has no concerns with going home at time of discharge. CM to follow for any discharge planning/needs. Patient voices no concerns/needs at this time. Advised patient to ask for CM if any questions/concerns/needs arise. Voices understanding. Plan: home
[2021-04-27 13:09] LABS: Hemoglobin A1c 6.4 % (3.8-5.6)
--- NOTE | 2021-04-27 14:10 | HP.PCM.HOS_ITS ---
HPI - General General Date of Admission: 04/27/21 Date of Service: 04/27/21 Chief Complaint: Right lower extremity cellulitis HPI Narrative DANIELLE DUMAS, is a 45 M who presented to the emergency department at [facility] on 04/27/2021 with a left foot wound. He evidently was hiking about 2 weeks ago and developed a blister at that time on the plantar surface of his left foot. He states he has compromised sensation related to previous surgeries on bilateral lower extremities but the left foot is greater than the right foot. He states the blister popped open and drained and he picked the skin off and since then the wound has become worse but was just placing a bandage over top of it. He states last night his ankle started to swell and today the swelling became worse and he started having redness up into his calf area. He feels slightly lightheaded and nauseated. He denies any fever, chills, vomiting, constipation, diarrhea, or general malaise. He has no known history of diabetes or other comorbidities however he does not follow-up regularly with a physician. He was admitted here approximately 2 years ago with a right foot infection was seen by Dr. Benites at that time. In the emergency department his vital signs were overall unremarkable. His CBC was completely unremarkable. His BMP shows an elevated glucose at 185. A CRP was obtained and found to be 22.3 and an ESR was done and was 21. On exam he has erythema extending up into the proximal calf on the left side with a an open what appears to be fairly superficial wound on the left plantar surface of his foot at the first metatarsal head. There is no significant purulent drainage but there does appear to be significant callus surrounding the area. He was initiated on IV Unasyn and request for admission was made. [facility] Medical History (Updated 04/27/21 @ 14:[address] Nataliia León DO) COVID-19 Former smoker Morbid obesity Right foot infection Home Medications NK 04/27/21 [History Last Taken Unknown] Allergy/AdvReac Type Severity Reaction Status Date / Time No Known Allergies Allergy Verified 04/27/21 10:02 Family History Father Colon cancer Diabetes Skin cancer Mother Hypertension Surgical History History of ankle surgery History of tonsillectomy Hx of foot surgery Social History Smoking Status: Former smoker Smokeless tobacco user: chewing tobacco alcohol intake: current alcohol intake frequency: holidays/special occasions only substance use type: does not use frequency: 1-2 times per week ROS Constitutional Constitutional: Denies anorexia, change in weight, chills, fatigue, fever(s), malaise, night sweats, weakness or other Eyes Eyes: Denies blurry vision, change in eye color, change in vision, discharge from eye(s), double vision, erythema, eye pain, loss of vision or other ENT HEENT: Denies abnormal hearing, dysphagia, ear pain, epistaxis, headache(s), hearing loss, nasal congestion, nasal discharge, post nasal drip, sinus pressure, sore throat or other Cardiovascular Cardiovascular: Reports lightheadedness; Denies chest pain, claudication, dyspnea on exertion, edema, orthopnea, palpitations, paroxysmal nocturnal dyspnea, rapid heart rate, syncope or other Respiratory/Chest Respiratory/Chest: Denies cough, dyspnea, excessive phlegm production, hemoptysis, productive cough, shortness of breath at rest, shortness of breath with exertion, wheezing or other Gastrointestinal Gastrointestinal: Reports nausea; Denies abdominal pain, coffee ground emesis, constipation, diarrhea, dyspepsia, hematemesis, hematochezia, loose stools, melena, vomiting or other Genitourinary Genitourinary: Denies burning urination, difficulty urinating, dysuria, hematur ia, nocturia, urinary frequency, urinary hesitancy, urinary incontinence, urinary urgency or other Musculoskeletal Musculoskeletal: Reports joint pain; Denies arthralgias, back pain, joint stiffness, joint swelling, myalgias, neck pain or other Neurologic Neurologic: Reports paresthesias; Denies abnormal gait, abnormal speech, confusion, disequilibrium, dizziness, focal weakness, headache(s), numbness, seizure-like activity, seizures, syncope, tingling, tremor(s) or other Psychiatric Psychiatric: Denies anxiety, depression, homicidal ideation, suicidal ideation or other Endocrine Endocrinology: Denies change in body appearance, cold intolerance, excessive sweating, heat intolerance, polydipsia, polyuria or other Hematologic/Lymphatic Hematologic/Lymphatic: Denies anemia, easy bleeding, easy bruising, lymphadenopathy or other Allergic/Immunologic Allergic/Immunologic: Denies rhinitis, hives, eczemia, asthma or other Vital Signs Vital Signs Vital Signs: 04/27/21 10:01 04/27/21 10:08 04/27/21 12:00 Temperature 96.5 F L 96.5 F L 98.1 F Temperature Source Temporal Temporal Oral Pulse Rate 92 92 89 Respiratory Rate 18 18 16 Blood Pressure 138/85 H 138/85 H 124/80 H Blood Pressure Mean 102 102 94 Pulse Ox 97 97 96 Oxygen Delivery Method Room Air Room Air Room Air 04/27/21 12:18 Temperature 98.1 F Temperature Source Oral Pulse Rate 89 Respiratory Rate 16 Blood Pressure 124/80 H Blood Pressure Mean 94 Pulse Ox 96 Oxygen Delivery Method Room Air Weight Weight: 186.8 kg Body Mass Index (BMI) 51.5 Physical Exam Const alert, oriented x3, no apparent distress, healthy appearing and well nourished Constitutional Narrative: Morbidly obese white male sitting up in bed, appears comfortable nontoxic, very pleasant General Appearance: cooperative HEENT normocephalic, head/scalp atraumatic, hearing grossly normal bilaterally and moist oral mucous membranes HEENT Narrative: Mallampati is 3-4, no thrush is present, dentition is fair Eyes PERRL, EOMs intact bilaterally and conjunctivae normal Eyes Narrative: No scleral icterus Neck no lymphadenopathy, supple, no JVD and no carotid bruits Neck Narrative: Trachea midline, no thyroid enlargement Resp normal respiratory effort, no retractions, no use of accessory muscles and clear to auscultation bilaterally Auscultation: Negative for crackles, rales, rhonchi or wheezes Cardio regular rate, regular rhythm, S1 normal heart sound, S2 normal heart sound, no murmurs, no rub, no gallops, no clicks and no JVD GI normal to inspection, nondistended, normoactive bowel sounds, soft to palpation, non-tender and non-distended GI Narrative: Large protuberant abdomen Extremity Extremity Narrative: Lower extremity edema with erythema into the mid and slightly upper calf region posteriorly, slightly tender to palpation, no c yanosis or clubbing Peripheral Pulses: Yes pulses 2+ throughout Skin no rashes or lesions noted, No no wounds, skin turgor normal, no jaundice, no petechiae and no mottling Skin Narrative: Left lower extremity erythema as described above, quarter sized wound on the plantar surface of his left foot at the first metatarsal head-no purulent drainage and no signs of significant infection, surrounding area with significant callus formation Neuro oriented x3, CN's II-XII intact bilaterally, moves all extremities and no focal motor deficits Neuro Narrative: Decreased sensation bilateral feet left greater than right Sensorium / Orientation: awake and alert Speech: speech normal Motor Exam: strength 5/5 throughout Psych affect normal Results Lab / Micro Data Result Diagrams: 04/27/21 10:30 04/27/21 10:30 Labs: Laboratory Results - last 24 hr 04/27/21 10:30: WBC 9.8, RBC 5.28, Hgb 15.5, Hct 45.2, MCV 85.6, MCH 29.4, MCHC 34.3, RDW Std Deviation 41.8, RDW Coeff of Gabriella 13.5, Plt Count 227, MPV 9.5, Immature Gran % (Auto) 0.500, Neut % (Auto) 64.2, Lymph % (Auto) 23.9, [place] % (Auto) 9.4, Eos % (Auto) 1.7, Baso % (Auto) 0.3, Absolute Neuts (auto) 6.3, Absolute Lymphs (auto) 2.33, Nucleated RBC % 0.2, ESR 21 H 04/27/21 10:30: Sodium 138, Potassium 3.8, Chloride 107, Carbon Dioxide 28.0, Anion Gap 3 L, BUN 16, Creatinine 0.83, Estim Creat Clear Calc 134.33, Est GFR (MDRD) Af Amer 128, Est GFR (MDRD) Non-Af 106, BUN/Creatinine Ratio 19.2, Glucose 185 H, Calcium 9.3, C-React Prot Ext Range 22.30 H 04/27/21 10:30: Hemoglobin A1c 6.4 H Radiology Impression Foot X-Ray 04/27/21 10:12 IMPRESSION: Flattening of the second metatarsal head suggestive of chronic subchondral stress fracture. Degenerative changes of the left foot. Electronically Signed: Kali Patel MD at 11:32 EST Reading Location ID and State: [facility] / [place] Tel , Service support , Assessment & Plan Assessment/Plan (1) Hyperglycemia: (2) Cellulitis of right lower extremity: (3) Blister of foot, left, infected: PLAN: Left lower extremity cellulitis secondary to infected wound -We will consult podiatry to evaluate left foot -Unasyn initiated in the emergency department and will continue -Check wound culture/MRSA PCR of wound -Consult wound care for dressing recommendations -Elevate foot -Would avoid weightbearing at that surface Hyperglycemia -Check hemoglobin A1c -Patient has a family history of DM-2 -Consult dietitian for recommendations -Fasting blood sugar was 185 on presentation -I suspect the patient will have some insulin resistance if he is not full-blown diabetic History of tobacco abuse -Patient is a former smoker however he currently is using chewing tobacco -Nicotine patch if needed -Recommend cessation Bilateral neuropathy -Secondary to previous surgical interventions -Neuropathy is patchy but increases risk for wounds and infection Morbid obesity -Recommend weight loss -BMI is 51.2 -Complicates treatment, prognosis, outcomes Suspected ASH -We will refer for outpatient follow-up to obtain a sleep study at discharge DVT prophylaxis -Lovenox subcu 40 mg twice daily given BMI of 51.2 CODE STATUS -Full code verified on admission Charges/Coding Visit Charges Inpatient E&M: 60072 Init Hosp L3
[2021-04-27 14:12] VITALS: BMI 51.1
[2021-04-27 14:24] VITALS: BP 122/61; PULSE 93; RESP 16; TEMP 37.3; O2SAT 98
[2021-04-27] MEDS: Acetaminophen 325 MG Tablet 650 MG PO ×2 (14:29→22:36)
[2021-04-27] MEDS: oxyCODONE 5 MG Tablet PO ×3 (14:29→22:36)
--- NOTE | 2021-04-27 15:08 | CON.PCM_ITS ---
Assessment & Plan Assessment/Plan (1) Non-pressure chronic ulcer of other part of left foot with fat layer exposed: PLAN: Patient examined evaluated all fine discussed with patient in detail. Patient is vitally stable. No leukocytosis at this time. Patient has slightly elevated CRP and ESR. Radiographs of left foot were taken and are devoid of any acute or chronic infection at this time. Patient appears to have new onset left foot ulceration at the level of the great toe likely secondary to hallux rigidus deformity. This subsequently became infected and he has developed a cellulitis. Based on clinical examination and radiographs there is no evidence of deep infections such as abscess or osteomyelitis that would require surgical management. Wound cultures were taken per wound nurse. Will await the results and continue IV antibiotics. Patient should remain heel weightbearing to left lower extremity in surgical shoe. I will follow up with the patient on 04/29/2021 to reevaluate left lower extremity and ensure there is resolving infection. Patient will likely require home health care dressing changes to manage his left foot wound. (2) Type 2 diabetes mellitus with diabetic polyneuropathy: HPI Consult Data Date of Consult: 04/27/21 HPI Narrative HPI Narrative: This 45-year-old male was seen bedside for a new onset left great toe wound which subsequently became infected.. Patient developed a blister that left great toe and peeled the skin off. Since that time he noticed some increased swelling and redness traveling up his leg. This is what brought him into the emergency room today. He denied any significant drainage to that site. He has a history of foot ulcerations on the right foot which required surgical debridement. He denies any changes to that site at this time. He denies any constitutional symptoms at this time. Reports minimal pain as he has significant diabetic neuropathy. Is been approximately 2 years since he is followed up with us. [facility] Medical History (Updated 04/27/21 @ 15:[address] Ayad Monte DPM) COVID-19 Former smoker Morbid obesity Right foot infection Home Medications NK 04/27/21 [History Last Taken Unknown] Allergy/AdvReac Type Severity Reaction Status Date / Time No Known Allergies Allergy Verified 04/27/21 10:02 Family History Father Colon cancer Diabetes Skin cancer Mother Hypertension Surgical History History of ankle surgery History of tonsillectomy Hx of foot surgery Social History Smoking Status: Former smoker Smokeless tobacco user: chewing tobacco alcohol intake: current alcohol intake frequency: holidays/special occasions only substance use type: does not use frequency: 1-2 times per week Physical Exam Narrative Patient alert oriented person place and time, seen resting comfortably in bed. Vascular: Dorsalis pedis posterior tibial pulses palpable 2 out of 4 to bilateral lower extremity. Digital hair growth noted. Capillary fill time brisk to digits 1 through 5 bilaterally. +1 pitting edema noted to left lower extremity. Erythema warmth noted to left lower extremity. Neurologic: Light touch protective sensation absent to bilateral feet. Dermatologic: Stable full-thickness ulceration noted to the plantar lateral left hallux approximately 1.8 x 2.0 x 0.5 cm. Wound demonstrates mild periwound erythema edema. No evidence of undermining or deep probing. No periwound fluctuance or crepitus. There is some erythema that extends into the anterior left leg. No purulent drainage or other signs of infection. Musculoskeletal: No pain with calf squeeze bilateral lower extremity. No evidence of fluctuance or crepitus to the wound or periwound area. Muscular strength 5 out of 5 to bilateral lower extremity compartments. Lab / Micro Data Result Diagrams: 04/27/21 10:30 04/27/21 10:30 Labs: Laboratory Results - last 24 hr 04/27/21 10:30: WBC 9.8, RBC 5.28, Hgb 15.5, Hct 45.2, MCV 85.6, MCH 29.4, MCHC 34.3, RDW Std Deviation 41.8, RDW Coeff of Gabriella 13.5, Plt Count 227, MPV 9.5, Immature Gran % (Auto) 0.500, Neut % (Auto) 64.2, Lymph % (Auto) 23.9, [place] % (Auto) 9.4, Eos % (Auto) 1.7, Baso % (Auto) 0.3, Absolute Neuts (auto) 6.3, Absolute Lymphs (auto) 2.33, Nucleated RBC % 0.2, ESR 21 H 04/27/21 10:30: Sodium 138, Potassium 3.8, Chloride 107, Carbon Dioxide 28.0, Anion Gap 3 L, BUN 16, Creatinine 0.83, Estim Creat Clear Calc 134.33, Est GFR (MDRD) Af Amer 128, Est GFR (MDRD) Non-Af 106, BUN/Creatinine Ratio 19.2, Glucose 185 H, Calcium 9.3, C-React Prot Ext Range 22.30 H 04/27/21 10:30: Hemoglobin A1c 6.4 H Radiology Impression Foot X-Ray 04/27/21 10:12 IMPRESSION: Flattening of the second metatarsal head suggestive of chronic subchondral stress fracture. Degenerative changes of the left foot. Electronically Signed: Kali Patel MD at 11:32 EST ,
[2021-04-27] MEDS: Insulin Lispro 100 UNIT/ML INSULN.PEN SC (15:54)
[2021-04-27 16:04] LABS: M R Staph aureus DNA By PCR Negative (Negative); Probe Check PASS; Specimen Processing Control PASS; Staph aureus DNA By PCR POSITIVE (Negative)
[2021-04-27 16:06] LABS: Bedside Glucose 242 mg/dL (74-106)
--- NOTE | 2021-04-27 16:07 | WOUNDNOTE ---
wound photo: left plantar foot
--- NOTE | 2021-04-27 16:08 | WOUNDNOTE ---
wound photo: right great toe
[2021-04-27] MEDS: 0.9% Saline Lock 10 ML Syringe IV (17:43)
[2021-04-27] MEDS: Enoxaparin 40 MG/0.4 ML Syringe SC (20:51)
[2021-04-27 20:55] VITALS: BP 119/64; PULSE 82; RESP 16; TEMP 36.5; O2SAT 100
[2021-04-27 22:46] LABS: Bedside Glucose 142 mg/dL (74-106)
[2021-04-28] MEDS: Acetaminophen 325 MG Tablet 650 MG PO ×3 (06:08→22:59)
[2021-04-28] MEDS: oxyCODONE 5 MG Tablet PO ×5 (06:08→22:59)
[2021-04-28 06:14] VITALS: BP 127/70; PULSE 88; RESP 16; TEMP 36.6; O2SAT 97
[2021-04-28 06:26] LABS: Bedside Glucose 146 mg/dL (74-106)
[2021-04-28] MEDS: Enoxaparin 40 MG/0.4 ML Syringe SC ×2 (07:34→20:40)
[2021-04-28 07:48] LABS: Absolute Lymphocyte Count 2.02 X10^3/uL (0.83-4.51); Absolute Neutrophil Count 6.2 X10^3/uL (2.0-7.7); Basophil# 0.03 X10^3/uL; Basophil% 0.3 % (0-1); Eosinophil# 0.23 X10^3/uL; Eosinophils% 2.5 % (0-5); Hematocrit 45.7 % (40-54); Hemoglobin 15.3 g/dL (13.0-16.5); Lymphocyte # 2.02 X10^3/ul (0.83-4.51); Lymphocyte % 21.6 % (19-41); Mean Corp Hgb Conc 33.5 g/dL (32-36); Mean Corpuscular Hgb 29.1 pg (27.0-32.0); Mean Corpuscular Volume 86.9 fL (80-94); Mean Platelet Vol. 9.4 fl (6.2-12.0); Monocyte# 0.86 X10^3/uL; Monocyte% 9.2 % (0-10); NRBC Flagged by Analyzer 0 % (0-5); Neutrophil # 6.17 X10^3/uL (2.7-7.7); Neutrophil % 65.8 % (47-70); Platelet Count 211 K/mm3 (150-450); RBC Distribution Width CV 13.6 % (11.6-14.6); RBC Distribution Width SD 42.9 fl (35.1-43.9); Red Blood Count 5.26 M/mm3 (4.6-6.2); White Blood Count 9.4 K/mm3 (4.4-11.0)
[2021-04-28 08:03] VITALS: BP 135/85; PULSE 94; RESP 16; TEMP 36.6; O2SAT 95
[2021-04-28 08:06] LABS: AST(SGOT) 16 U/L (15-37); Alanine Aminotransfer ALT/SGPT 36 U/L (16-61); Albumin, Serum 3.4 g/dL (3.2-5.0); Alkaline Phosphatase 91 U/L (45-117); Anion Gap 3 (5-15); BUN 14 mg/dL (7-18); BUN/Creat Ratio 18.2 RATIO (10-20); Calcium,Total 8.6 mg/dL (8.5-10.1); Chloride 106 mmol/L (98-107); Creatinine, Serum 0.77 mg/dL (0.70-1.30); EST Glomerular Filtration Rate 116 mL/min (>60); Est Glom Filt Rate - Afr Amer 140 mL/min (>60); Globulin 3.3 g/dL (2.2-4.2); Glucose 159 mg/dL (74-106); Magnesium 1.9 mg/dL (1.6-2.6); Phosphorus 3.1 mg/dL (2.5-4.9); Potassium 3.9 mmol/L (3.5-5.1); Protein, Total 6.7 g/dL (6.4-8.2); Sodium Level 139 mmol/L (136-145)
--- NOTE | 2021-04-28 10:48 | PCM.PN.HOSP ---
Subjective Subjective No significant issues overnight. 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 We discussed his hemoglobin A1c being 6.4. He states his is diabetic and he understands what he has to do to improve this. He also understand that weight loss would be beneficial. Objective Data Objective Data Vital Signs: Vital Signs Temp Pulse Resp BP Pulse Ox 97.9 F 94 16 135/85 H 95 04/28/21 08:03 04/28/21 08:03 04/28/21 08:03 04/28/21 08:03 04/28/21 08:03 Oxygen Delivery Method Room Air Weight: 185.655 kg Body Mass Index (BMI) 51.1 Intake & Output: Intake and Output for Last 24 Hours 04/26/21 04/27/21 04/28/21 23:59 23:59 23:59 Intake Total 864 / 864 1124 / 1124 Balance 864 / 864 1124 / 1124 Lab / Micro Data Result Diagrams: 04/28/21 07:30 04/28/21 07:30 Labs: Laboratory Results - last 24 hr 04/27/21 10:30: ESR 21 H 04/27/21 10:30: Sodium 138, Potassium 3.8, Chloride 107, Carbon Dioxide 28.0, Anion Gap 3 L, BUN 16, Creatinine 0.83, Estim Creat Clear Calc 134.33, Est GFR (MDRD) Af Amer 128, Est GFR (MDRD) Non-Af 106, BUN/Creatinine Ratio 19.2, Glucose 185 H, Calcium 9.3, C-React Prot Ext Range 22.30 H 04/27/21 10:30: Hemoglobin A1c 6.4 H 04/27/21 14:35: S.aureus Protein A PCR POSITIVE H, MRSA (PCR) Negative 04/27/21 15:48: POC Glucose 242 H 04/27/21 22:40: POC Glucose 142 H 04/28/21 06:11: POC Glucose 146 H 04/28/21 07:30: WBC 9.4, RBC 5.26, Hgb 15.3, Hct 45.7, MCV 86.9, MCH 29.1, MCHC 33.5, RDW Std Deviation 42.9, RDW Coeff of Gabriella 13.6, Plt Count 211, MPV 9.4, Immature Gran % (Auto) 0.600, Neut % (Auto) 65.8, Lymph % (Auto) 21.6, [place] % (Auto) 9.2, Eos % (Auto) 2.5, Baso % (Auto) 0.3, Absolute Neuts (auto) 6.2, Absolute Lymphs (auto) 2.02, Nucleated RBC % 0 04/28/21 07:30: Sodium 139, Potassium 3.9, Chloride 106, Carbon Dioxide 30.0, Anion Gap 3 L, BUN 14, Creatinine 0.77, Estim Creat Clear Calc 144.80, Est GFR (MDRD) Af Amer 140, Est GFR (MDRD) Non-Af 116, BUN/Creatinine Ratio 18.2, Glucose 159 H, Calcium 8.6, Phosphorus 3.1, Magnesium 1.9, Total Bilirubin 0.80, AST 16, ALT 36, Alkaline Phosphatase 91, Total Protein 6.7, Albumin 3.4, Globulin 3.3, Albumin/Globulin Ratio 1.0 Micro: Microbiology 04/27/21 14:35 Wound - Left Foot Gram Stain - Final Radiography Diagnostic Testing: Radiology Impression Foot X-Ray 04/27/21 10:12 IMPRESSION: Flattening of the second metatarsal head suggestive of chronic subchondral stress fracture. Degenerative changes of the left foot. Electronically Signed: Kali Patel MD at 11:32 EST Reading Location ID and State: [facility] / [place] Tel , Service support , Physical Exam Const alert, oriented x3, no apparent distress, healthy appearing and well nourished Constitutional Narrative: Morbidly obese white male sitting up in bed, appears comfortable nontoxic, very pleasant, watching television eating breakfast General Appearance: cooperative HEENT normocephalic, head/scalp atraumatic, hearing grossly normal bilaterally and moist oral mucous membranes HEENT Narrative: Mallampati 3-4, no thrush Head and Scalp: normocephalic Resp normal respiratory effort, no retractions, no use of accessory muscles and clear to auscultation bilaterally Auscultation: Negative for crackles, rales, rhonchi or wheezes Cardio regular rate, regular rhythm, S1 normal heart sound, S2 normal heart sound, no murmurs, no rub, no gallops, no clicks and no JVD GI normal to inspection, nondistended, normoactive bowel sounds, soft to palpation, non-tender and non-distended GI Narrative: Large protuberant abdomen Extremity Extremity Narrative: Left lower extremity edema which has improved, erythema has retracted some to the drawn outline but still present at least to the mid calf region, still photographer however his tenderness is improved as well, no clubbing or cyanosis Peripheral Pulses: Yes pulses 2+ throughout Skin Skin Narrative: Dressing placed on plantar surface of foot by podiatry with no significant drainage noted Neuro oriented x3, CN's II-XII intact bilaterally, moves all extremities and no focal motor deficits Neuro Narrative: Decreased sensation bilateral feet left greater than right Sensorium / Orientation: awake and alert Speech: speech normal Assessment & Plan Assessment/Plan (1) Hyperglycemia: (2) Cellulitis of right lower extremity: (3) Blister of foot, left, infected: PLAN: Left lower extremity cellulitis secondary to infected wound -We will consult podiatry to evaluate left foot -MRSA the wound was negative -Gram stain on culture shows gram-positive cocci in clusters -Suspect staph species but not resistant staph so therefore we will continue Unasyn -Consult wound care for dressing recommendations -Elevate foot -Would avoid weightbearing at that surface -If shows continued improvement and podiatry reevaluates his foot tomorrow and feels that we can discharge him will plan for that Insulin resistance -Hemoglobin A1c was 6.4 -I did discuss the results with patient and he is aware of what it takes from a diabetic standpoint with regards to diet -We did advise weight loss of even 10 to 15 pounds as this would likely be helpful -Patient has a family history of DM-2 -Dietitian consult pending for education and diabetic diet -He did discuss the ramifications of continued insulin resistance and the development of diabetes with endorgan damage History of tobacco abuse -Patient is a former smoker however he currently is using chewing tobacco -Nicotine patch if needed -Recommend cessation Bilateral neuropathy -Secondary to previous surgical interventions -Neuropathy is patchy but increases risk for wounds and infection Morbid obesity -Recommend weight loss -BMI is 51.2 -Complicates treatment, prognosis, outcomes Suspected ASH -We will refer for outpatient follow-up to obtain a sleep study at discharge DVT prophylaxis -Lovenox subcu 40 mg twice daily given BMI of 51.2 CODE STATUS -Full code verified on admission Charges/Coding Visit Charges Inpatient E&M: 54267 Subs Hosp L2
[2021-04-28] MEDS: Insulin Lispro 100 UNIT/ML INSULN.PEN SC (11:05)
[2021-04-28 11:21] LABS: Bedside Glucose 216 mg/dL (74-106)
[2021-04-28 11:39] VITALS: BP 119/61; PULSE 90; RESP 16; TEMP 36.7; O2SAT 95
[2021-04-28] MEDS: 0.9% Saline Lock 10 ML Syringe IV (11:55)
[2021-04-28 16:20] LABS: Bedside Glucose 124 mg/dL (74-106)
[2021-04-28 16:21] VITALS: BP 126/79; PULSE 90; RESP 16; TEMP 36.5; O2SAT 96
[2021-04-28 21:01] VITALS: BP 121/83; PULSE 82; RESP 16; TEMP 36.6; O2SAT 97
[2021-04-28 22:51] LABS: Bedside Glucose 144 mg/dL (74-106)
[2021-04-29] MEDS: Acetaminophen 325 MG Tablet 650 MG PO (06:25)
[2021-04-29] MEDS: oxyCODONE 5 MG Tablet PO (06:25)
[2021-04-29 06:41] LABS: Bedside Glucose 149 mg/dL (74-106)
[2021-04-29 06:46] LABS: Absolute Lymphocyte Count 3.09 X10^3/uL (0.83-4.51); Absolute Neutrophil Count 4.4 X10^3/uL (2.0-7.7); Basophil# 0.04 X10^3/uL; Basophil% 0.5 % (0-1); Eosinophil# 0.25 X10^3/uL; Eosinophils% 2.9 % (0-5); Hematocrit 44.4 % (40-54); Hemoglobin 14.3 g/dL (13.0-16.5); Lymphocyte # 3.09 X10^3/ul (0.83-4.51); Lymphocyte % 36.3 % (19-41); Mean Corp Hgb Conc 32.2 g/dL (32-36); Mean Corpuscular Hgb 28.2 pg (27.0-32.0); Mean Corpuscular Volume 87.6 fL (80-94); Mean Platelet Vol. 9.6 fl (6.2-12.0); Monocyte# 0.74 X10^3/uL; Monocyte% 8.7 % (0-10); NRBC Flagged by Analyzer 0 % (0-5); Neutrophil # 4.35 X10^3/uL (2.7-7.7); Platelet Count 215 K/mm3 (150-450); RBC Distribution Width CV 13.5 % (11.6-14.6); RBC Distribution Width SD 43.5 fl (35.1-43.9); Red Blood Count 5.07 M/mm3 (4.6-6.2); White Blood Count 8.5 K/mm3 (4.4-11.0)
[2021-04-29 07:07] LABS: Anion Gap 3 (5-15); BUN 16 mg/dL (7-18); BUN/Creat Ratio 23.6 RATIO (10-20); Calcium,Total 8.8 mg/dL (8.5-10.1); Chloride 104 mmol/L (98-107); Creatinine, Serum 0.68 mg/dL (0.70-1.30); EST Glomerular Filtration Rate 134 mL/min (>60); Est Glom Filt Rate - Afr Amer 163 mL/min (>60); Estimated Creatinine Clearance 163.96 ml/min; Glucose 158 mg/dL (74-106); Potassium 4.2 mmol/L (3.5-5.1); Sodium Level 138 mmol/L (136-145)
[2021-04-29 09:00] VITALS: BP 135/90; PULSE 97; RESP 16; TEMP 36.6; O2SAT 96
--- NOTE | 2021-04-29 10:19 | PCM.DC.SUM ---
Providers Date of Admission: 04/27/21 Date of Discharge: 04/29/21 Primary Care Physician: Dr. Licha Brar MD Consultations 04/27/21 14:05 Consult: Podiatry Routine Consulting Provider: Ayad Monte Reason for Consult: L Foot wound EMERGENT Consult: No MD Notified: Yes Date Notified: 04/27/21 Time Notified: 12:50 Method of Notification: Answering Service Reason For Visit: L LE CELLULITIS Diagnosis Discharge Diagnosis (1) Hyperglycemia: Status: Acute Code(s): R73.9 - Hyperglycemia, unspecified (2) Cellulitis of right lower extremity: Status: Acute Code(s): L03.115 - Cellulitis of right lower limb (3) Blister of foot, left, infected: Status: Acute Code(s): S90.822A - Blister (nonthermal), left foot, initial encounter; L08.9 - Local infection of the skin and subcutaneous tissue, unspecified Medications at Discharge Home Medications levofloxacin 750 mg PO DAILY #8 tab 04/29/21 oxycodone 5 mg PO Q6H PRN 5 Days #20 tab 04/29/21 Hospital Course Operations None Procedures None Summary of Care Provided Minutes Spent on Discharge: 36 Hospital Course: Mr. Chino is a 45-year-old white male who presented to the emergency department at [facility] on 04/27/2021 with a left foot wound and left lower extremity cellulitis. On admission he reported he had been hiking approximately 2 weeks before presentation and developed a blister on the plantar surface of his left foot. He reported he had compromised sensation related to previous surgeries on bilateral lower extremities but the left foot was more affected than the right. He stated the blister popped open and drain and then he picked the skin off. Since that point time the wound had become worse and he was placing a bandage over top of it. He reported the night prior to admission his ankle started to swell and the day of presentation the swelling became worse and he started having erythema into his calf. On admission he reported feeling slightly lightheaded and nauseated. He denied any fever, chills, vomiting, constipation, diarrhea, or general malaise. He had no known history of diabetes or other comorbidities however he does not follow-up with a physician regularly. In the emergency department his vital signs were overall unremarkable. His CBC was completely unremarkable. His BMP showed an elevated glucose at 185. His CRP and ESR were found to be slightly elevated at 22.3 and 21 respectively. On exam he had erythema extending up to his proximal calf with an open area on the plantar surface at the first metatarsal head of the left foot. The wound did not appear to be all that significant or deep. He had no significant purulent drainage and there is significant callus surrounding the area. He was initiated on IV Unasyn admitted to the medical floor. MRSA wound PCR was performed and was negative and cultures grew staph aureus. Given his improvement in his overall condition and his negative wound MRSA PCR I do anticipate that this is sensitive staph. He was maintained on Unasyn throughout his hospitalization however discharged on Levaquin given concern for pseudomonal potential with him being in a tennis shoe on a regular basis. Podiatry did follow the patient during his hospitalization and he required no intervention to his foot and has follow-up at the wound care center after discharge. On 04/29/2021 the patient had significant retraction of the erythematous area that was outlined upon presentation and his overall condition improved. His edema and pain improved significantly as well. He was discharged in stable condition on 04/29/2021 again with oral Levaquin, given the above concerns, as well as a short course of oral narcotics for pain management. Prescriptions were faxed to his pharmacy. He was encouraged to follow-up with his primary care physician in 2 weeks as we did note an hemoglobin A1c of 6.4 during his hospitalization. We discussed the importance of weight loss and watching his diet. He stated that he is familiar with a diabetic diet as his is also diabetic. We discussed the ramifications of untreated diabetes and what would be potentials if he does not improve glycemic control. I would also recommend he be referred for now placement polysomnography as we do have high suspicion he has obstructive sleep apnea. 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 Tobacco abuse Bilateral peripheral neuropathy Morbid obesity Suspected ASH Suspected ASH Physical Exam Const alert, oriented x3, no apparent distress, healthy appearing and well nourished Constitutional Narrative: Morbidly obese white male sitting up in bed, appears comfortable nontoxic, very pleasant, sleeping but awakens easily to voice General Appearance: cooperative, comfortable, well kempt and well developed Orientation / Consciousness: awake Nutritional Appearance: morbidly obese HEENT normocephalic, head/scalp atraumatic, hearing grossly normal bilaterally and moist oral mucous membranes HEENT Narrative: Mallampati is 3, no thrush, dentition is good Eyes PERRL, EOMs intact bilaterally and conjunctivae normal Eyes Narrative: No scleral icterus Neck no lymphadenopathy, supple, no JVD and no carotid bruits Neck Narrative: Trachea midline, no thyroid enlargement Resp normal respiratory effort, no retractions, no use of accessory muscles and clear to auscultation bilaterally Auscultation: Negative for crackles, rales, rhonchi or wheezes Cardio regular rate, regular rhythm, S1 normal heart sound, S2 normal heart sound, no murmurs, no rub, no gallops, no clicks and no JVD GI normal to inspection, nondistended, normoactive bowel sounds, soft to palpation, non-tender and non-distended GI Narrative: Large protuberant abdomen Extremity Extremity Narrative: Left lower extremity edema which has improved, erythema has further retracted some to the drawn outline and present in only the distal lower extremity, improved tenderness, no clubbing or cyanosis Skin no rashes or lesions noted, No no wounds, skin turgor normal, no jaundice, no petechiae and no mottling Skin Narrative: Dressing placed on plantar surface of foot by podiatry with no significant drainage noted Neuro oriented x3, CN's II-XII intact bilaterally, moves all extremities and no focal motor deficits Neuro Narrative: Decreased sensation bilateral feet left greater than right Sensorium / Orientation: awake and alert Speech: speech normal Motor Exam: strength 5/5 throughout Psych affect normal Psych Narrative: Very pleasant Weight / BMI Weight Weight: 185.655 kg Body Mass Index (BMI) 51.1 ABG / Lab / Microbiology Data Result Diagrams: 04/29/21 05:49 04/29/21 05:49 Laboratory: Laboratory Results - last 24 hr 04/28/21 11:02: POC Glucose 216 H 04/28/21 16:06: POC Glucose 124 H 04/28/21 20:42: POC Glucose 144 H 04/29/21 05:49: WBC 8.5, RBC 5.07, Hgb 14.3, Hct 44.4, MCV 87.6, MCH 28.2, MCHC 32.2, RDW Std Deviation 43.5, RDW Coeff of Gabriella 13.5, Plt Count 215, MPV 9.6, Immature Gran % (Auto) 0.600, Neut % (Auto) 51.0, Lymph % (Auto) 36.3, Pike % (Auto) 8.7, Eos % (Auto) 2.9, Baso % (Auto) 0.5, Absolute Neuts (auto) 4.4, Absolute Lymphs (auto) 3.09, Nucleated RBC % 0 04/29/21 05:49: Sodium 138, Potassium 4.2, Chloride 104, Carbon Dioxide 31.0, Anion Gap 3 L, BUN 16, Creatinine 0.68 L, Estim Creat Clear Calc 163.96, Est GFR (MDRD) Af Amer 163, Est GFR (MDRD) Non-Af 134, BUN/Creatinine Ratio 23.6 H, Glucose 158 H, Calcium 8.8 04/29/21 06:21: POC Glucose 149 H Microbiology: Microbiology 04/27/21 14:35 Wound - Left Foot Gram Stain - Final 04/27/21 14:35 Wound - Left Foot Wound Culture - Preliminary Staphylococcus aureus D/C Instructions Discharge Diet: 1800 Calorie Control Diet Discharge Activity: Return to Normal Activity and Use Crutches (As needed to avoid bearing weight on front of left foot) Return to work on: 04/30/21 Weight Bearing Status: No weight bearing (On front of left foot-use crutches as needed) Keep extremity elevated above heart level: Left Leg (While sitting) Meaningful Use Info Meaningful Use Diagnoses (Choose all that apply): None applicable Discharge Plan Admission Admit Date/Time: 04/27/21 12:04 Primary Reason for Your Visit: R LE Cellulitis Attending Provider: Nataliia León Primary Care Provider: Licha Brar Consulting Providers: Ayad Monte Instructions Additional Instructions / Restrictions: Please complete antibiotics as directed and eat yogurt daily while on antibiotics Avoid placing weight of front or L foot Discharge Orders/Prescriptions Prescriptions: New oxycodone 5 mg Tablet 5 mg PO Q6H PRN (Reason: pain) 5 Days Qty: 20 RF: 0 levofloxacin 750 mg tablet 750 mg PO DAILY Qty: 8 RF: 0 Referrals / Follow Up: Ayad Monte DPM [STAFF PHYSICIAN] - See Referral Note (as directed to f/u at wound center) Licha Brar MD [Primary Care Provider] - Within 2 Weeks Disposition Disposition (needs filled in before D/C Order can be placed): Home, Self Care Charges/Coding Visit Charges Inpatient E&M: 73848 Disch Hosp
[2021-04-29] MEDS: Enoxaparin 40 MG/0.4 ML Syringe SC (10:25)
--- NOTE | 2021-04-29 10:55 | PCM.PROGNOTE ---
Subjective Subjective This 45 male was seen bedside for follow-up of left diabetic foot ulceration with cellulitis. Patient denies any fever chills nausea vomiting chest pain calf pain shortness of breath today. Patient denies any pain to wound site. Other complaints overnight. Patient has been ambulating surgical shoe the left lower extremity. Objective Data Objective Data Vital Signs: Vital Signs Temp Pulse Resp BP Pulse Ox 97.8 F 82 16 121/83 H 97 04/28/21 21:01 04/28/21 21:01 04/28/21 21:01 04/28/21 21:01 04/28/21 21:01 Oxygen Delivery Method Room Air Weight: 185.655 kg Body Mass Index (BMI) 51.1 Intake & Output: Intake and Output for Last 24 Hours 04/27/21 04/28/21 04/30/21 23:59 23:59 00:59 Intake Total 864 / 864 2469.5 / 2949.5 1104 / 1104 Balance 864 / 864 2469.5 / 2949.5 1104 / 1104 Lab / Micro Data Result Diagrams: 04/29/21 05:49 04/29/21 05:49 Labs: Laboratory Results - last 24 hr 04/28/21 11:02: POC Glucose 216 H 04/28/21 16:06: POC Glucose 124 H 04/28/21 20:42: POC Glucose 144 H 04/29/21 05:49: WBC 8.5, RBC 5.07, Hgb 14.3, Hct 44.4, MCV 87.6, MCH 28.2, MCHC 32.2, RDW Std Deviation 43.5, RDW Coeff of Gabriella 13.5, Plt Count 215, MPV 9.6, Immature Gran % (Auto) 0.600, Neut % (Auto) 51.0, Lymph % (Auto) 36.3, Osborne % (Auto) 8.7, Eos % (Auto) 2.9, Baso % (Auto) 0.5, Absolute Neuts (auto) 4.4, Absolute Lymphs (auto) 3.09, Nucleated RBC % 0 04/29/21 05:49: Sodium 138, Potassium 4.2, Chloride 104, Carbon Dioxide 31.0, Anion Gap 3 L, BUN 16, Creatinine 0.68 L, Estim Creat Clear Calc 163.96, Est GFR (MDRD) Af Amer 163, Est GFR (MDRD) Non-Af 134, BUN/Creatinine Ratio 23.6 H, Glucose 158 H, Calcium 8.8 04/29/21 06:21: POC Glucose 149 H Micro: Microbiology 04/27/21 14:35 Wound - Left Foot Gram Stain - Final 04/27/21 14:35 Wound - Left Foot Wound Culture - Preliminary Staphylococcus aureus Gram positive organism Physical Exam Narrative Patient alert oriented person place and time, seen resting comfortably in bed. Vascular: Dorsalis pedis posterior tibial pulses palpable 2 out of 4 to bilateral lower extremity. Digital hair growth noted. Capillary fill time brisk to digits 1 through 5 bilaterally. +1 pitting edema noted to left lower extremity. Erythema warmth noted to left lower extremity. Neurologic: Light touch protective sensation absent to bilateral feet. Dermatologic: Stable full-thickness ulceration noted to the plantar lateral left hallux approximately 1.8 x 2.0 x 0.5 cm. Wound demonstrates resolved periwound erythema edema. No evidence of undermining or deep probing. No periwound fluctuance or crepitus. There is some erythema that extends into the anterior left leg. No purulent drainage or other signs of infection. Musculoskeletal: No pain with calf squeeze bilateral lower extremity. No evidence of fluctuance or crepitus to the wound or periwound area. Muscular strength 5 out of 5 to bilateral lower extremity compartments. Assessment & Plan Assessment/Plan (1) Non-pressure chronic ulcer of other part of left foot with fat layer exposed: PLAN: Patient examined evaluated all fine discussed with patient in detail. Patient is vitally stable. No leukocytosis at this time. Patient has slightly elevated CRP and ESR. Radiographs of left foot were taken and are devoid of any acute or chronic infection at this time. Cellulitis significantly improved at this time. Patient stable for discharge from my perspective. Recommend DC on p.o. antibiotics, cultures grew staph aureus. C&S pending. I recommend DC on doxycycline or Bactrim for 10 to 14 days. Patient will maintain a heel weightbearing status to the left lower extremity and will follow up with me in the wound care center on Friday of this week. We will consider total contact casting versus advanced wound care product such as epifix to accelerate healing. (2) Type 2 diabetes mellitus with diabetic polyneuropathy:
[2021-04-29 11:06] VITALS: BP 135/90; PULSE 97; RESP 18; TEMP 36.6; O2SAT 96
== END 2021-04-29 11:42 | disposition home or self-care (01) | DRG 383 ==
LOC: ED 10:20 → MS3 04-29 09:57
PROVIDERS: Admitting Provider Internal Medicine; Emergency Provider Physician Assistant; PCP Internal Medicine; Visit Provider Internal Medicine
DX: L03.116 Cellulitis of left lower limb (principal); E11.621 Type 2 diabetes mellitus with foot ulcer; L97.522 Non-pressure chronic ulcer of other part of left foot with fat layer exposed; E11.42 Type 2 diabetes mellitus with diabetic polyneuropathy; E11.65 Type 2 diabetes mellitus with hyperglycemia; Z68.43 Body mass index [BMI] 50.0-59.9, adult; E66.01 Morbid (severe) obesity due to excess calories; M19.072 Primary osteoarthritis, left ankle and foot; S90.822A Blister (nonthermal), left foot, initial encounter; F17.220 Nicotine dependence, chewing tobacco, uncomplicated; Z86.16 Personal history of COVID-19
CPT/HCPCS: 36415; 73630; 80048; 80053; 82962; 83036; 83735; 84100; 85025; 85652; 86140; 87070; 87077; 87186; 87205; 87640; 96365; 96366; 96372; 97802; 97803; 99218; 99284; J7040; J7050; A4216; G0378; J0295

== ENCOUNTER 2021-05-15 09:00 | Outpatient (RCR) | payer MEDICAID, SELFPAY ==
[2021-05-08 08:51] VITALS: BP 145/94; PULSE 83; RESP 16; TEMP 36.2; BMI 50.0
--- NOTE | 2021-05-08 09:44 | PN.PCM_ITS ---
History of Present Illness Date of Service: 05/08/21 Progress of Wound: This 45-year-old male presents to clinic for follow-up on a left foot ulceration and left lower extremity extremity cellulitis. Patient denies any fever chills nausea vomiting. Patient recently completed oral antibiotics, but notes that he feels slightly run down at this time. Patient is diabetic and denies any pain to his ulceration secondary to neuropathy has been offloading the site with a surgical shoe and heel weightbearing. No new complaints at this time. Objective Data Objective Data Vital Signs: Vital Signs Temp Pulse Resp BP 97.1 F L 83 16 145/94 H 05/08/21 08:51 05/08/21 08:51 05/08/21 08:51 05/08/21 08:51 Oxygen Delivery Method Room Air Weight: 181.437 kg Body Mass Index (BMI) 50.0 Physical Exam Narrative Patient is alert oriented to person place and time patient is performing heel weightbearing to left lower extremity in surgical shoe and full weightbearing on the right lower extremity. Vascular: +1 pitting edema noted to bilateral lower extremities. Some varicosities noted. Dorsalis pedis posterior tibial pulses palpable 2 out of 4 to bilateral lower extremity compartments. Capillary fill time brisk to lesser digits. Neurologic: Light touch protective sensation diminished to bilateral feet. Dermatologic: Full-thickness ulceration noted just distal to the plantar first metatarsal head. Pre and post debridement measurements documented in nursing notes. Periwound skin demonstrates slight hyperkeratosis that was removed and removed with debridement. No signs of infection deep probing or undermining periwound crepitus or fluctuance noted at this time. Musculoskeletal: No pain with calf squeeze to bilateral lower extremity. Muscular strength 5 out of 5 to bilateral lower extremity compartments. Hallux rigidus noted bilaterally which is likely contributing to wound formation of the left lower extremity. Patient has a preulceration to the right medial hallux secondary to hallux rigidus as well. Debridement Note Debridement Note Post-Debridement Measurements and Additional Note: Post-Debridement Measurements/Treatment WC - Nurse 1 - General Ulcer Assessment Start: 05/08/21 08:51 Freq: Status: Active Protocol: DAGO.LOWEXT Activity Type Activity Date Activity User E-Sign Co-Sign Detail Recorded Client Recorded Date Recorded By Document 05/08/21 08:51 [facility] [id number] 05/08/21 09:07 BMF 05/08/21 08:51 WC - Today's Visit Information Type of service Initial Visit Arrival Mode Ambulatory Transfer Assistance None Patient Identification Verified (Name & Yes ) Patient Requires Transmission-Based No Precautions Height and Weight Height 6 ft 3 in Weight 181.437 kg Weight in Pounds 400.0 lbs Weight Measurement Method Estimated by Patient Body Mass Index (BMI) 50.0 BMI Classification Obese BSA - French 2.95 Vital Signs Temperature (97.8 F-99.1 F) 97.1 F L Temperature Source Temporal Pulse Rate (60-100) 83 Pulse Location Monitor Respiratory Rate (12-18) 16 Respiratory rate source Observation Oxygen Delivery Method Room Air Blood Pressure (90/60-120/80) 145/94 H Blood Pressure Mean (mm Hg) 111 Source Monitor Position Sitting Blood Pressure Location Left Arm History Since Last Visit- (Skip if this is Patient's initial visit) Left Footwear Surgical Shoe with pressure relief insole Right Footwear Regular Shoe Pain Scale: 0-10 Numeric Is Patient Pain Free? Yes Lower Extremity Assessment/ Foot Assessment/ Toe Nail Assessment Left -Posterior Tibial Palpable No -Posterior Tibial Doppler Multiphasic -Dorsalis Pedis Palpable No -Dorsalis Pedis Doppler Monophasic -Extremity Color Hyperpigmented -Hair Growth on Legs Yes -Hair Growth on Toes No -Temperature of Extremity Warm -Other Deformity No -Prior Foot Ulcer No -Charcot Joint No -Prior Amputation No -Thick Yes -Discolored Yes -Deformed No -Improper Length & Hygeine Yes Right -Posterior Tibial Palpable No -Posterior Tibial Doppler Monophasic -Dorsalis Pedis Palpable Yes -Dorsalis Pedis Doppler Monophasic -Extremity Color Hyperpigmented -Hair Growth on Legs Yes -Hair Growth on Toes No -Temperature of Extremity Warm -Other Deformity No -Prior Foot Ulcer No -Charcot Joint No -Prior Amputation No -Thick Yes -Discolored Yes -Deformed No -Improper Length & Hygeine Yes Neuropathy Assessment Feet - Top Side and Bottom <Entered> (a) Communication Assessment Preferred language [place] Citizen Analysis Mgr Required No Able to Read Yes Able to Write Yes Communication Tools None Right Hearing Abillity Normal Left Hearing Abillity Normal Visual Assistive Devices Glasses Teaching Assessment Preferences Verbal,Written, Audio/Visual, Demonstration Barriers to Learning None Readiness To Learn Excellent Willingness to Engage in Self Management High Activies Readiness to Engage in Self Management High Activities Anxiety Level Calm Cooperation Cooperative Perception Coherent Interest in Health Problem Asks Questions Education Importance Acknowledges Need Does Patient Smoke tobacco or other No substances Smoking Status Never smoker Is Patient Diabetic No Functional Assessment Recent Decline in Ability to Perform Ambulation Culture/Judaism/Supervisor [place] Cultural/Judaism Needs that may affect No Treatment Plan Teaching: Wound Center *Welcome to the Wound Center -Person Taught Patient -Teaching Method Discussion -Response to teaching Verbalize understanding Welcome to the Wound Care Center [place] Citizen (a) 1 - - 2 - - 3 - + 4 - + 5 - + 6 - + - Nurse 1 - General Ulcer Measurement Start: 05/08/21 08:51 Freq: Status: Active Protocol: Activity Type Activity Date Activity User E-Sign Co-Sign Detail Recorded Client Recorded Date Recorded By Document 05/08/21 08:51 [facility] [id number] 05/08/21 09:07 [facility] 05/08/21 08:51 Wound Center Nurse 1 #1- L GREAT TOE PLANTAR -Combined with other wound No -Current Size (cm) - Length 1.4 -Current Size (cm) - Width 1 -Current Size (cm) - Depth 0.2 -Total Square Cm 1.4 -Date of Last Picture (Recall this 05/08/21 field) -Photo Taken Yes -Epithelialization None Present -Tunneling No -Undermining/Tunneling No -Circular Undermining No -Exudate Amt Medium -Exudate Type Serosanguineous -Wound Margin Distinct, Outline Attached -Granulation Amt Large (67-100%) -Granulation Quality [place] -Slough/Fibrin Yes -Necrosis Amt Small (1-33%) -Necrotic Tissue Type Adherent Slough -Texture (Diane-wound Skin Appearance) Assessed,Callus ,Scarring -Moisture (Diane-wound Skin Appearance) Assessed,Dry/ Scaly -Color (Diane-wound Skin Appearance) Assessed -Temperature (Diane-wound Skin No Abnormality Appearance) (Pt Warm) -Tenderness on Palpation (Diane-wound No Skin Appearance) -Ulcer Cleansing Rinsed/ Irrigated with Saline -Foul Odor after Cleansing No -Anesthetic Used 5% Lidocaine Gel Lower Limb Edema Present Yes Right Calf (cm) 46.3 Right Ankle (cm) 31.6 Left Calf (cm) 43.5 Left Ankle (cm) 30.7 - Nurse 2 - General Ulcer CM Notes Start: 05/08/21 08:51 Freq: Status: Active Protocol: Activity Type Activity Date Activity User E-Sign Co-Sign Detail Recorded Client Recorded Date Recorded By Document 05/08/21 09:17 [id number] 05/08/21 09:20 ZOEY 05/08/21 09:17 Wound Center Nurse 2 #1- L GREAT TOE PLANTAR -Time 09:17 -Correct Patient Yes -Correct Side, Site, Position Yes -Correct Procedure Yes -Procedure Performed Yes -Type of Procedure Debridement -Clinical Debridement Subcutaneous -Tissue Removed Subcutaneous -Post Debridement (cm) - Length 1.5 -Post Debridement (cm) - Width 1 -Post Debridement (cm) - Depth 0.2 -Total Square (Post) (cm) 1.5 -Area of Debridement (cm) - Length 1.5 -Area of Debridement (cm) - Width 1.0 -Total Square (Area) (cm) 1.50 -Tunneling No -Undermining/Tunneling No -Circular Undermining No -Wound/Ulcer Outcome Not Healed -Ulcer Cleansing Rinsed/ Irrigated with Saline -Foul Odor after Cleansing No -Bioengineered Tissue No -Bleeding Controlled with Pressure -Treatment Response Procedure Tolerated Well -Offloading Yes -Type of Offloading Surgical Shoe -Debridement - Subq, 1st 20sq cm Yes Pain Scale: 0-10 Numeric Is Patient Pain Free? Yes - Nurse 3 - General Ulcer D/C NN Start: 05/08/21 08:51 Freq: Status: Active Protocol: Activity Type Activity Date Activity User E-Sign Co-Sign Detail Recorded Client Recorded Date Recorded By Document 05/08/21 09:33 [id number] 05/08/21 09:34 DL 05/08/21 09:33 Wound Care Nurse 3 #1- L GREAT TOE PLANTAR -Ulcer Cleansing Rinsed/ Irrigated with Saline -Foul Odor after Cleansing No -Primary Dressing Applied Promogran Dionne Matter -Primary Dressing Covered/Secured with Dry Gauze & Roll Gauze, Secured with Tape -Promogran Dionne Matter 1 Left -Tubular Bandage Single Layer -Size of Tubigrip Used Size F -Size F ($) 1 Treatment Response Procedure Tolerated Well Pain Scale: 0-10 Numeric Is Patient Pain Free? Yes - Visit Discharge Discharge Condition Stable Ambulatory Status Ambulatory Transportation Private Auto Assessment/Plan Assessment/Plan (1) Type 2 diabetes mellitus with diabetic polyneuropathy: CODE(S): E11.42 - Type 2 diabetes mellitus with diabetic polyneuropathy QUALIFIERS: Diabetes mellitus superintendent container terminal insulin use: unspecified superintendent container terminal insulin use status Qualified Code(s): E11.42 - Type 2 diabetes mellitus with diabetic polyneuropathy (2) Non-pressure chronic ulcer of other part of left foot with fat layer exposed: CODE(S): L97.522 - Non-pressure chronic ulcer of other part of left foot with fat layer exposed PLAN: Patient examined evaluated, all findings discussed with patient in detail. Patient has resolved cellulitis of left lower extremity at this time. Patient will no any signs of infection and contact us if any were to develop. He will observe his symptoms at this time. Left plantar foot wound was excisionally debrided down to including level of subcutaneous tissue of all nonviable tissue using a 5 mm dermal curette without incident patient tolerated procedure well no anesthesia required due to peripheral neuropathy hemostasis obtained with light compression. Pre and post debridement measurements documented in nursing note. Wound was dressed with Dionne and dry sterile dressing this will be performed on a daily basis. Patient will continue offloading in surgical shoe, a dancers pad was created to offload the plantar hallux wound. We have discussed with patient in detail performing total contact casting versus advanced wound care products. I have personally recommended to left total contact casting on his next visit we will likely pursue this. Patient will follow up in 1 week. Once his wounds are healed we will likely need to get custom diabetic shoes due to his severe hallux rigidus and neuropathic status.
[2021-05-15 09:01] VITALS: BP 131/73; PULSE 100; RESP 18; TEMP 35.9; BMI 50.0
--- NOTE | 2021-05-15 09:12 | PN.PCM_ITS ---
History of Present Illness Date of Service: 05/15/21 Progress of Wound: This 45-year-old male presents to clinic for follow-up on a left foot ulceration and resolved left lower extremity extremity cellulitis. Patient denies any fever chills nausea vomiting. Patient off antibiotics, notes resolution of fatigue. Patient notes some noncompliance with use of surgical shoe on the left lower extremity secondary to a right knee injury. Patient is diabetic and denies any pain to his ulceration secondary to neuropathy has been offloading the site with a surgical shoe and heel weightbearing. No new complaints at this time. Objective Data Objective Data Vital Signs: Vital Signs Temp Pulse Resp BP 96.7 F L 100 18 131/73 H 05/15/21 09:01 05/15/21 09:01 05/15/21 09:01 05/15/21 09:01 Oxygen Delivery Method Room Air Weight: 181.437 kg Body Mass Index (BMI) 50.0 Physical Exam Narrative Patient is alert oriented to person place and time patient is performing heel weightbearing to left lower extremity in surgical shoe and full weightbearing on the right lower extremity. Vascular: +1 pitting edema noted to bilateral lower extremities. Some varicosities noted. Dorsalis pedis posterior tibial pulses palpable 2 out of 4 to bilateral lower extremity compartments. Capillary fill time brisk to lesser digits. Neurologic: Light touch protective sensation diminished to bilateral feet. Dermatologic: Full-thickness ulceration noted just distal to the plantar first metatarsal head. Pre and post debridement measurements documented in nursing notes. Periwound skin demonstrates slight hyperkeratosis that was removed and removed with debridement. No signs of infection deep probing or undermining periwound crepitus or fluctuance noted at this time. Musculoskeletal: No pain with calf squeeze to bilateral lower extremity. Muscular strength 5 out of 5 to bilateral lower extremity compartments. Hallux rigidus noted bilaterally which is likely contributing to wound formation of the left lower extremity. Patient has a preulceration to the right medial hallux secondary to hallux rigidus as well. Debridement Note Debridement Note Post-Debridement Measurements and Additional Note: Post-Debridement Measurements/Treatment WC - Nurse 1 - General Ulcer Assessment Start: 05/08/21 08:51 Freq: Status: Active Protocol: DGAO.LOWEXT Activity Type Activity Date Activity User E-Sign Co-Sign Detail Recorded Client Recorded Date Recorded By Document 05/08/21 08:51 [facility] [id number] 05/08/21 09:07 [facility] Document 05/15/21 09:01 [facility] [id number] 05/15/21 09:05 [facility] 05/08/21 05/15/21 08:51 09:01 WC - Today's Visit Information Type of service Initial Visit Follow-up Visit (Physician/PTA ) Arrival Mode Ambulatory Ambulatory, Crutches Transfer Assistance None None Patient Identification Verified (Name & Yes Yes ) Patient Requires Transmission-Based No Precautions Height and Weight Height 6 ft 3 in Weight 181.437 kg Weight in Pounds 400.0 lbs Weight Measurement Method Estimated by Patient Body Mass Index (BMI) 50.0 50.0 BMI Classification Obese Obese BSA - French 2.95 Vital Signs Temperature (97.8 F-99.1 F) 97.1 F L 96.7 F L Temperature Source Temporal Temporal Pulse Rate (60-100) 83 100 Pulse Location Monitor Monitor Respiratory Rate (12-18) 16 18 Respiratory rate source Observation Observation Oxygen Delivery Method Room Air Room Air Blood Pressure (90/60-120/80) 145/94 H 131/73 H Blood Pressure Mean (mm Hg) 111 92 Source Monitor Monitor Position Sitting Sitting Blood Pressure Location Left Arm Left Arm Have you changed medications since your No last visit? Any new allergies or adverse reactions No Had a fall/change in ADL's that may No increase risk of falls Signs or symptoms of abuse and/or No neglect since last visit Have you been in the hospital since your No last visit? Has dressing in place as prescribed Yes Has compression in place as prescribed No Has offloadiing in place as prescribed Yes Experienced any changes in pain level or No management History Since Last Visit- (Skip if this is Patient's initial visit) Left Footwear Surgical Shoe Surgical Shoe with pressure with pressure relief insole relief insole Right Footwear Regular Shoe Regular Shoe Pain Scale: 0-10 Numeric Is Patient Pain Free? Yes Yes Lower Extremity Assessment/ Foot Assessment/ Toe Nail Assessment Left -Posterior Tibial Palpable No -Posterior Tibial Doppler Multiphasic -Dorsalis Pedis Palpable No -Dorsalis Pedis Doppler Monophasic -Extremity Color Hyperpigmented -Hair Growth on Legs Yes -Hair Growth on Toes No -Temperature of Extremity Warm -Other Deformity No -Prior Foot Ulcer No -Charcot Joint No -Prior Amputation No -Thick Yes -Discolored Yes -Deformed No -Improper Length & Hygeine Yes Right -Posterior Tibial Palpable No -Posterior Tibial Doppler Monophasic -Dorsalis Pedis Palpable Yes -Dorsalis Pedis Doppler Monophasic -Extremity Color Hyperpigmented -Hair Growth on Legs Yes -Hair Growth on Toes No -Temperature of Extremity Warm -Other Deformity No -Prior Foot Ulcer No -Charcot Joint No -Prior Amputation No -Thick Yes -Discolored Yes -Deformed No -Improper Length & Hygeine Yes Neuropathy Assessment Feet - Top Side and Bottom <Entered> (a) Communication Assessment Preferred language Turkmen Pest Control Service Technician Required No Able to Read Yes Able to Write Yes Communication Tools None Right Hearing Abillity Normal Left Hearing Abillity Normal Visual Assistive Devices Glasses Teaching Assessment Preferences Verbal,Written, Audio/Visual, Demonstration Barriers to Learning None Readiness To Learn Excellent Willingness to Engage in Self Management High Activies Readiness to Engage in Self Management High Activities Anxiety Level Calm Cooperation Cooperative Perception Coherent Interest in Health Problem Asks Questions Education Importance Acknowledges Need Does Patient Smoke tobacco or other No substances Smoking Status Never smoker Is Patient Diabetic No Functional Assessment Recent Decline in Ability to Perform Ambulation 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 Cultural/Orthodoxy Needs that may affect No Treatment Plan Teaching: Wound Center *Welcome to the Wound Center -Person Taught Patient -Teaching Method Discussion -Response to teaching Verbalize understanding Welcome to the Wound Care Center Turkmen (a) 1 - - 2 - - 3 - + 4 - + 5 - + 6 - + WC - Nurse 1 - General Ulcer Measurement Start: 05/08/21 08:51 Freq: Status: Active Protocol: Activity Type Activity Date Activity User E-Sign Co-Sign Detail Recorded Client Recorded Date Recorded By Document 05/08/21 08:51 [facility] [id number] 05/08/21 09:07 [facility] Document 05/15/21 09:01 [facility] [id number] 05/15/21 09:05 [facility] 05/08/21 05/15/21 08:51 09:01 Wound Center Nurse 1 #1- L GREAT TOE PLANTAR -Combined with other wound No No -Current Size (cm) - Length 1.4 0.9 -Current Size (cm) - Width 1 0.7 -Current Size (cm) - Depth 0.2 0.1 -Total Square Cm 1.4 0.63 -Date of Last Picture (Recall this 05/08/21 05/15/21 field) -Photo Taken Yes Yes -Epithelialization None Present Small 1-33% -Tunneling No No -Undermining/Tunneling No No -Circular Undermining No No -Exudate Amt Medium Small -Exudate Type Serosanguineous Serosanguineous -Wound Margin Distinct, Distinct, Outline Outline Attached Attached -Granulation Amt Large (67-100%) Large (67-100%) -Granulation Quality Elida Red -Slough/Fibrin Yes Yes -Necrosis Amt Small (1-33%) Small (1-33%) -Necrotic Tissue Type Adherent Slough Adherent Slough -Texture (Diane-wound Skin Appearance) Assessed,Callus Assessed,Callus ,Scarring ,Scarring -Moisture (Diane-wound Skin Appearance) Assessed,Dry/ Assessed,Dry/ Scaly Scaly -Color (Diane-wound Skin Appearance) Assessed Assessed -Temperature (Diane-wound Skin No Abnormality No Abnormality Appearance) (Pt Warm) (Pt Warm) -Tenderness on Palpation (Diane-wound No No Skin Appearance) -Ulcer Cleansing Rinsed/ Rinsed/ Irrigated with Irrigated with Saline Saline -Foul Odor after Cleansing No No -Anesthetic Used 5% Lidocaine 5% Lidocaine Gel Gel Lower Limb Edema Present Yes Right Calf (cm) 46.3 Right Ankle (cm) 31.6 Left Calf (cm) 43.5 Left Ankle (cm) 30.7 WC - Nurse 2 - General Ulcer CM Notes Start: 05/08/21 08:51 Freq: Status: Active Protocol: Activity Type Activity Date Activity User E-Sign Co-Sign Detail Recorded Client Recorded Date Recorded By Document 05/08/21 09:17 ZOEY [id number] 05/08/21 09:20 ZOEY 05/08/21 09:17 Wound Center Nurse 2 -Time 09:17 -Correct Patient Yes -Correct Side, Site, Position Yes -Correct Procedure Yes -Procedure Performed Yes -Type of Procedure Debridement -Clinical Debridement Subcutaneous -Tissue Removed Subcutaneous -Post Debridement (cm) - Length 1.5 -Post Debridement (cm) - Width 1 -Post Debridement (cm) - Depth 0.2 -Total Square (Post) (cm) 1.5 -Area of Debridement (cm) - Length 1.5 -Area of Debridement (cm) - Width 1.0 -Total Square (Area) (cm) 1.50 -Tunneling No -Undermining/Tunneling No -Circular Undermining No -Wound/Ulcer Outcome Not Healed -Ulcer Cleansing Rinsed/ Irrigated with Saline -Foul Odor after Cleansing No -Bioengineered Tissue No -Bleeding Controlled with Pressure -Treatment Response Procedure Tolerated Well -Offloading Yes -Type of Offloading Surgical Shoe -Debridement - Subq, 1st 20sq cm Yes Pain Scale: 0-10 Numeric Is Patient Pain Free? Yes - Nurse 3 - General Ulcer D/C NN Start: 05/08/21 08:51 Freq: Status: Active Protocol: Activity Type Activity Date Activity User E-Sign Co-Sign Detail Recorded Client Recorded Date Recorded By Document 05/08/21 09:33 DL [id number] 05/08/21 09:34 DL 05/08/21 09:33 Wound Care Nurse 3 #1- L GREAT TOE PLANTAR -Ulcer Cleansing Rinsed/ Irrigated with Saline -Foul Odor after Cleansing No -Primary Dressing Applied Promogran Dionne Matter -Primary Dressing Covered/Secured with Dry Gauze & Roll Gauze, Secured with Tape -Promogran Dionne Matter 1 Left -Tubular Bandage Single Layer -Size of Tubigrip Used Size F -Size F ($) 1 Treatment Response Procedure Tolerated Well Pain Scale: 0-10 Numeric Is Patient Pain Free? Yes WC - Visit Discharge Discharge Condition Stable Ambulatory Status Ambulatory Transportation Private Auto Assessment/Plan Assessment/Plan (1) Type 2 diabetes mellitus with diabetic polyneuropathy: CODE(S): E11.42 - Type 2 diabetes mellitus with diabetic polyneuropathy QUALIFIERS: Diabetes mellitus intermediate insulin use: unspecified intermediate insulin use status Qualified Code(s): E11.42 - Type 2 diabetes mellitus with diabetic polyneuropathy (2) Non-pressure chronic ulcer of other part of left foot with fat layer exposed: CODE(S): L97.522 - Non-pressure chronic ulcer of other part of left foot with fat layer exposed PLAN: Patient examined evaluated, all findings discussed with patient in detail. Patient has resolved cellulitis of left lower extremity at this time. Patient will no any signs of infection and contact us if any were to develop. He will observe his symptoms at this time. Left plantar foot wound was excisionally debrided down to including level of subcutaneous tissue of all nonviable tissue using a 5 mm dermal curette without incident patient tolerated procedure well no anesthesia required due to peripheral neuropathy hemostasis obtained with light compression. Pre and post debridement measurements documented in nursing note. Wound was dressed with Dionne and dry sterile dressing. A total contact cast was applied on this visit. He will keep this clean dry and intact until follow-up in 1 week. He was dispensed a cast walking boot to assist ambulation on the left lower extremity. We have discussed with patient in detail performing total contact casting versus advanced wound care products. Patient will follow up in 1 week. Once his wounds are healed we will likely need to get custom diabetic shoes due to his severe hallux rigidus and neuropathic status.
== END 2021-05-17 23:59 | disposition home or self-care (01) ==
LOC: WC 09:00
PROVIDERS: PCP Internal Medicine; Visit Provider Podiatrist
DX: E11.621 Type 2 diabetes mellitus with foot ulcer (principal); L97.522 Non-pressure chronic ulcer of other part of left foot with fat layer exposed; E11.42 Type 2 diabetes mellitus with diabetic polyneuropathy; Z79.4 Long term (current) use of insulin
CPT/HCPCS: 11042; 29445; 99213; G0463

== ENCOUNTER 2021-05-30 12:13 | Emergency (ER) | payer MEDICAID, SELFPAY ==
[2021-05-30 12:14] VITALS: BP 145/110; PULSE 93; RESP 14; TEMP 36.4; O2SAT 94; BMI 50.4
--- NOTE | 2021-05-30 12:34 | VDLE_ITS ---
Reason For Study: LLE pain Procedure LEFT This is a venous duplex using B-mode, color GSV is normal. flow and spectral Doppler. FV is compressible, spontaneous, phasic, Exam performed portable in ED. competent and demonstrates normal The study was technically difficult. augmentation. Due to obesity. POP V is compressible, spontaneous, phasic, A preliminary report was called and/or faxed competent and demonstrates normal to ED. augmentation. T/P Trunk is compressible. PTV is compressible. LT PerV is compressible. Unable to assess CFV & SFJ due to obesity. VL/Venous Duplex US, Unilateral Interpretation Summary Deep veins of the left lower extremity are patent and compressible segmentally. There is no evidence of left lower extremity deep vein thrombosis. Valvular competence appears intac t within the proximal deep venous system on the left . The left great saphenous vein appears patent a nd compressible segmentally. The left common femoral vein and the left sapheno-femoral junction could not be assessed due to the patient's body habitus. Ordering Physician: Ismael Ling Referring Physician: Licha Brar Performed By: Kerry Garcia, KYM, RVT
--- NOTE | 2021-05-30 12:34 | EKG12_ITS ---
Test Reason : WOUND Blood Pressure : / mmHG Vent. Rate : 082 BPM Atrial Rate : 082 BPM P-R Int : 152 ms QRS Dur : 096 ms QT Int : 368 ms P-R-T Axes : 023 011 032 degrees QTc Int : 429 ms Normal sinus rhythm Normal ECG Confirmed by MOO LEAL, HEIDY ([id number]), pictures editor ALLIE SULLIVAN ([id number]) on 06/01/2021 12:57:00 P M Referred By: EDEJAY Confirmed By:HONG CORTÉS MD
--- NOTE | 2021-05-30 12:36 | EDS_ITS ---
HPI History of Present Illness Chief Complaint: Wound Narrative Narrative: Patient with past medical history of infected blister of his left foot, on the ball of it, was admitted to the hospital approximately 3 weeks ago for IV antibiotics. He and his states that 3 weeks ago his leg was swollen and red. He was diagnosed with a strep infection, and his symptoms have improved, but today he woke up not feeling well. He states he feels foggy, and not right, the same way he felt when he was admitted to the hospital for cellulitis. He denies any new drainage from the wound on his foot, however while he was post to see wound care tomorrow, he developed pustules that he noticed on his left lower extremity mainly on the anterior tibial area and laterally on his calf. He denies any chest pain or shortness of breath. No fevers or chills. They went to urgent care and he was told because of the way he is feeling, and the development of these pustules that he should come to the emergency department for evaluation. Patient denies any exacerbating or alleviating factors. PFSH PFS Medical History COVID-19 Former smoker Hyperglycemia Morbid obesity Non-pressure chronic ulcer of other part of left foot with fat layer exposed Right foot infection Home Medications oxycodone 5 mg PO Q6H PRN 5 Days #20 tab 04/29/21 [Rx Last Taken Unknown] cephalexin 500 mg PO Q6 #40 cap 05/30/21 [Rx Last Taken Unknown] Allergy/AdvReac Type Severity Reaction Status Date / Time No Known Allergies Allergy Verified 05/30/21 12:18 Family History Father Colon cancer Diabetes Skin cancer Mother Hypertension Surgical History History of ankle surgery History of tonsillectomy Hx of foot surgery Social History Smoking Status: Never smoker Smokeless tobacco user: chewing tobacco alcohol intake: current alcohol intake frequency: holidays/special occasions only substance use type: does not use frequency: 1-2 times per week ROS ROS ED ROS Narrative Constitutional: No fever, no chills. Fatigue and malaise. HEENT: No sore throat. No neck pain. No loss of vision. No rhinorrhea. Cardiovascular: No chest pain. No palpitations. No pedal edema. Respiratory: No cough, no shortness of breath. Abdominal: No abdominal pain. No nausea. No vomiting. Genitourinary: No dysuria. No hematuria. Musculoskeletal: No myalgias. No arthralgias. Neurologic: No headaches. No dizziness. No lightheadedness. Skin: No rash. No change in color. Positive pustules left lower extremity. Psychiatric: No depression. No anxiety. EXAM Physical Exam Narrative Exam Narrative: Afebrile. Vital signs noted. HEENT: Normocephalic. Atraumatic. PERRL, EOMI. Neck soft and supple. No point tenderness or step off. Cardiovascular: Regular rate and rhythm. No murmurs, rubs, or gallops appreciated. Respiratory: No tachypnea. Lungs clear to auscultation bilaterally. Gastrointestinal: Abdomen soft, nontender, with normoactive bowel sounds. No rebound or guarding. Neurological: Awake. Alert. Nonfocal, nonlateralizing. Skin: No rash. Normal color. No pallor. Healing blister ball of left foot, no erythema. Small noted pustules on medial and lateral aspect of left lower leg. No active bleeding or purulent drainage. Musculoskeletal: No pedal edema. Full range of motion extremities. Const Vital Signs: 05/30/21 12:14 05/30/21 13:43 Temperature 97.6 F L Temperature Source Temporal Pulse Rate 93 84 Respiratory Rate 14 23 H Blood Pressure 145/110 H Blood Pressure Mean 121 Pulse Ox 94 Oxygen Delivery Method Room Air MDM MDM MDM Narrative Medical decision making narrative: Sepsis work-up was pursued. I will also obtain an ultrasound of the left lower leg to rule out DVT. His pustules almost appear as folliculitis. He is afebrile here. His lungs his laboratory work is within normal limits and acceptable I do feel that he could be discharged on oral antibiotics to follow-up with the wound center tomorrow. His EKG demonstrates normal sinus rhythm at 82 bpm without ectopy or acute ST changes. No significant change from previous. Normal white count of 8.7. Hemoglobin normal at 14.5, hematocrit 42.6. Electrolyte panel is significant only for chloride elevated at 108 with a BUN of 19 and a normal creatinine of 1.06. Lactic acid is normal at 1.4. His glucose is elevated at 139 but he has a normal anion gap of 5. LFTs are within normal limits. Ultrasound of the left lower extremity shows no evidence of DVT. At this point in time, I do feel that he may have more of a folliculitis. He will be treated with Keflex as he has a history of previous strep infection. I feel he be discharged safely home with follow-up to the wound care center tomorrow as scheduled. Return instructions were reviewed. Disposition is discharged home in stable condition. Lab Data Attestation: I reviewed the patient's lab results. Labs: Laboratory Results - last 24 hr 05/30/21 05/30/21 05/30/21 12:50 12:50 12:50 WBC 8.7 RBC 5.10 Hgb 14.5 Hct 42.6 MCV 83.5 MCH 28.4 MCHC 34.0 RDW Std Deviation 39.7 RDW Coeff of Gabriella 13.0 Plt Count 189 MPV 9.4 Immature Gran % (Auto) 0.600 Neut % (Auto) 61.3 Lymph % (Auto) 29.0 [place] % (Auto) 6.7 Eos % (Auto) 2.1 Baso % (Auto) 0.3 Absolute Neuts (auto) 5.3 Absolute Lymphs (auto) 2.52 Nucleated RBC % 0 Sodium 140 Potassium 3.7 Chloride 108 H Carbon Dioxide 27.0 Anion Gap 5 BUN 19 H Creatinine 1.06 Estim Creat Clear Calc 105.18 Est GFR (MDRD) Af Amer 97 Est GFR (MDRD) Non-Af 80 BUN/Creatinine Ratio 17.9 Glucose 139 H Lactic Acid 1.4 Calcium 8.3 L Total Bilirubin 0.40 AST 17 ALT 41 Alkaline Phosphatase 85 Total Protein 6.7 Albumin 3.5 Globulin 3.2 Albumin/Globulin Ratio 1.1 Discharge Plan Triage Chief Complaint: Wound ED Provider: Ismael Ling Dx/Rx/DC Orders Clinical Impression: Folliculitis, Malaise and fatigue Instructions: ED Folliculitis Prescriptions: New cephalexin 500 mg capsule 500 mg PO Q6 Qty: 40 RF: 0 No Action oxycodone 5 mg Tablet 5 mg PO Q6H PRN (Reason: pain) 5 Days Qty: 20 RF: 0 Primary Care Provider: Vlad Smith Referrals: Vlad Smith MD [Primary Care Provider] - 3-5 Days if not improving Activity Restrictions/Additional Instructions: Your work-up today was negative. You do not appear septic. Antibiotics as directed. Follow-up with wound care tomorrow as scheduled. Disposition Disposition: Home, Self Care
[2021-05-30 13:09] LABS: Absolute Lymphocyte Count 2.52 X10^3/uL (0.83-4.51); Absolute Neutrophil Count 5.3 X10^3/uL (2.0-7.7); Basophil# 0.03 X10^3/uL; Basophil% 0.3 % (0-1); Eosinophil# 0.18 X10^3/uL; Eosinophils% 2.1 % (0-5); Hematocrit 42.6 % (40-54); Hemoglobin 14.5 g/dL (13.0-16.5); Lymphocyte # 2.52 X10^3/ul (0.83-4.51); Mean Corpuscular Hgb 28.4 pg (27.0-32.0); Mean Corpuscular Volume 83.5 fL (80-94); Mean Platelet Vol. 9.4 fl (6.2-12.0); Monocyte# 0.58 X10^3/uL; Monocyte% 6.7 % (0-10); NRBC Flagged by Analyzer 0 % (0-5); Neutrophil # 5.34 X10^3/uL (2.7-7.7); Neutrophil % 61.3 % (47-70); Platelet Count 189 K/mm3 (150-450); RBC Distribution Width SD 39.7 fl (35.1-43.9); White Blood Count 8.7 K/mm3 (4.4-11.0)
[2021-05-30 13:28] LABS: ALB/GLOB Ratio 1.1 RATIO (0.9-2.4); AST(SGOT) 17 U/L (15-37); Alanine Aminotransfer ALT/SGPT 41 U/L (16-61); Albumin, Serum 3.5 g/dL (3.2-5.0); Alkaline Phosphatase 85 U/L (45-117); Anion Gap 5 (5-15); BUN 19 mg/dL (7-18); BUN/Creat Ratio 17.9 RATIO (10-20); Calcium,Total 8.3 mg/dL (8.5-10.1); Chloride 108 mmol/L (98-107); Creatinine, Serum 1.06 mg/dL (0.70-1.30); EST Glomerular Filtration Rate 80 mL/min (>60); Est Glom Filt Rate - Afr Amer 97 mL/min (>60); Estimated Creatinine Clearance 105.18 ml/min; Globulin 3.2 g/dL (2.2-4.2); Glucose 139 mg/dL (74-106); Potassium 3.7 mmol/L (3.5-5.1); Protein, Total 6.7 g/dL (6.4-8.2); Sodium Level 140 mmol/L (136-145)
[2021-05-30 13:29] LABS: Lactic Acid 1.4 mmol/L (0.4-1.9)
[2021-05-30 13:43] VITALS: PULSE 84; RESP 23
[2021-05-30 13:58] VITALS: TEMP 36.6
== END 2021-05-30 14:08 | disposition home or self-care (01) ==
PROVIDERS: Emergency Provider Emergency Medicine; PCP Family Medicine; Visit Provider Emergency Medicine
DX: L73.9 Follicular disorder, unspecified (principal); R53.81 Other malaise; R53.83 Other fatigue; M79.662 Pain in left lower leg
CPT/HCPCS: 80053; 83605; 85025; 87040; 93005; 93971; 99284

== ENCOUNTER 2021-06-12 09:00 | Outpatient (RCR) | payer MEDICAID, SELFPAY ==
[2021-05-18 00:50] VITALS: BP 131/73; PULSE 100; RESP 18; TEMP 35.9; BMI 50.0
[2021-05-22 08:58] VITALS: BP 141/88; PULSE 88; TEMP 36.3; BMI 50.0
--- NOTE | 2021-05-22 09:10 | PN.PCM_ITS ---
History of Present Illness Date of Service: 05/22/21 Progress of Wound: This 45-year-old male presents to clinic for follow-up on a left foot ulceration and resolved left lower extremity extremity cellulitis. Patient denies any fever chills nausea vomiting. Patient off antibiotics, notes resolution of fatigue. Patient compliant with immobilization surgical shoe since prior visit. Patient is diabetic and denies any pain to his ulceration secondary to neuropathy has been offloading the site with a surgical shoe and heel weightbearing. No new complaints at this time. Objective Data Objective Data Vital Signs: Vital Signs Temp Pulse Resp BP 97.4 F L 88 18 141/88 H 05/22/21 08:58 05/22/21 08:58 05/18/21 00:50 05/22/21 08:58 Weight: 181.437 kg Body Mass Index (BMI) 50.0 Physical Exam Narrative Patient is alert oriented to person place and time patient is performing heel weightbearing to left lower extremity in surgical shoe and full weightbearing on the right lower extremity. Vascular: +1 pitting edema noted to bilateral lower extremities. Some varicosities noted. Dorsalis pedis posterior tibial pulses palpable 2 out of 4 to bilateral lower extremity compartments. Capillary fill time brisk to lesser digits. Neurologic: Light touch protective sensation diminished to bilateral feet. Dermatologic: Full-thickness ulceration noted just distal to the plantar first metatarsal head. Pre and post debridement measurements documented in nursing notes. Periwound skin demonstrates slight hyperkeratosis that was removed and removed with debridement. No signs of infection deep probing or undermining pe riwound crepitus or fluctuance noted at this time. Musculoskeletal: No pain with calf squeeze to bilateral lower extremity. Muscular strength 5 out of 5 to bilateral lower extremity compartments. Hallux rigidus noted bilaterally which is likely contributing to wound formation of the left lower extremity. Patient has a preulceration to the right medial hallux secondary to hallux rigidus as well. 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 Any new allergies or adverse reactions No Had a fall/change in ADL's that may No increase risk of falls Signs or symptoms of abuse and/or No neglect since last visit Have you been in the hospital since your No last visit? Has dressing in place as prescribed Yes Has compression in place as prescribed Yes Has offloadiing in place as prescribed N/A Experienced any changes in pain level or No management Left Footwear Regular Shoe Right Footwear Regular Shoe Pain Scale: 0-10 Numeric Is Patient Pain Free? Yes - Nurse 1 - General Ulcer Measurement Start: 05/22/21 08:58 Freq: Status: Active Protocol: Activity Type Activity Date Activity User E-Sign Co-Sign Detail Recorded Client Recorded Date Recorded By Document 05/22/21 08:58 JOSÉ MIGUEL [id number] 05/22/21 09:01 JOSÉ MIGUEL 05/22/21 08:58 Wound Center Nurse 1 #1- L GREAT TOE PLANTAR -Current Size (cm) - Length 0.8 -Current Size (cm) - Width 0.5 -Current Size (cm) - Depth 0.2 -Total Square Cm 0.40 -Exudate Amt Small -Exudate Type Serosanguineous -Wound Margin Distinct, Outline Attached -Granulation Amt Small (1-33%) -Granulation Quality Red -Necrosis Amt Small (1-33%) -Necrotic Tissue Type Adherent Slough -Texture (Diane-wound Skin Appearance) Assessed, Scarring -Moisture (Diane-wound Skin Appearance) Assessed,Dry/ Scaly -Color (Diane-wound Skin Appearance) No Abnormality, Assessed -Temperature (Diane-wound Skin No Abnormality Appearance) (Pt Warm) -Tenderness on Palpation (Diane-wound No Skin Appearance) -Ulcer Cleansing Rinsed/ Irrigated with Saline -Foul Odor after Cleansing No -Anesthetic Used 5% Lidocaine Gel WC - Nurse 2 - General Ulcer CM Notes Start: 05/22/21 08:58 Freq: Status: Active Protocol: Activity Type Activity Date Activity User E-Sign Co-Sign Detail Recorded Client Recorded Date Recorded By Document 05/22/21 09:06 ZOEY [id number] 05/22/21 09:08 ZOEY Edit Result 05/22/21 09:06 JF (1) [id number] 05/22/21 09:09 ZOEY (1) #1- L GREAT TOE PLANTAR - Offloading => Yes - Type of Offloading => Total Contact Cast => (TCC) - Left ($) 05/22/21 09:06 Wound Center Nurse 2 -Time 09:06 -Correct Patient Yes -Correct Side, Site, Position Yes -Correct Procedure Yes -Procedure Performed Yes -Type of Procedure Debridement -Clinical Debridement Subcutaneous -Tissue Removed Subcutaneous -Post Debridement (cm) - Length 0.8 -Post Debridement (cm) - Width 0.8 -Post Debridement (cm) - Depth 0.2 -Total Square (Post) (cm) 0.64 -Area of Debridement (cm) - Length 0.8 -Area of Debridement (cm) - Width 0.8 -Total Square (Area) (cm) 0.64 -Tunneling No -Undermining/Tunneling No -Circular Undermining No -Wound/Ulcer Outcome Not Healed -Ulcer Cleansing Rinsed/ Irrigated with Saline -Foul Odor after Cleansing No -Bioengineered Tissue No -Bleeding Controlled with Pressure -Treatment Response Procedure Tolerated Well -Offloading Yes -Type of Offloading Total Contact Cast (TCC) - Left ($) -Debridement - Subq, 1st 20sq cm Yes Pain Scale: 0-10 Numeric Is Patient Pain Free? Yes Assessment/Plan Assessment/Plan (1) Non-pressure chronic ulcer of other part of left foot with fat layer exposed: CODE(S): L97.522 - Non-pressure chronic ulcer of other part of left foot with fat layer exposed PLAN: Patient examined evaluated, all findings discussed with patient in detail. Patient has resolved cellulitis of left lower extremity at this time. Patient will no any signs of infection and contact us if any were to develop. He will observe his symptoms at this time. Left plantar foot wound was excisionally debrided down to including level of subcutaneous tissue of all nonviable tissue using a 5 mm dermal curette without incident patient tolerated procedure well no anesthesia required due to peripheral neuropathy hemostasis obtained with light compression. Pre and post debridement measurements documented in nursing note. Wound was dressed with Dionne and dry sterile dressing. A total contact cast was applied on this visit. This is the first cast. He will keep this clean dry and intact until follow-up in 1 week. He was dispensed a cast walking boot to assist ambulation on the left lower extremity. We have discussed with patient in detail performing total contact casting versus advanced wound care products. Patient will follow up in 1 week. Once his wounds are healed we will likely need to get custom diabetic shoes due to his severe hallux rigidus and neuropathic status. If there are any delays will consider vascular referral or elective arthroplasty of the digit to offload the ulcer site. (2) Type 2 diabetes mellitus with diabetic polyneuropathy: CODE(S): E11.42 - Type 2 diabetes mellitus with diabetic polyneuropathy QUALIFIERS: Diabetes mellitus terminal operations supervisor insulin use: unspecified group home insulin use status Qualified Code(s): E11.42 - Type 2 diabetes mellitus with diabetic polyneuropathy
[2021-05-25 09:19] VITALS: BP 145/63; PULSE 91; RESP 18; TEMP 36.8; BMI 50.0
[2021-05-31 11:33] VITALS: BP 140/68; PULSE 81; TEMP 35.6; BMI 50.0
--- NOTE | 2021-05-31 11:50 | PCM.WC.PN ---
History of Present Illness Date of Service: 05/31/21 Progress of Wound: This 45-year-old male presents to clinic for follow-up on a left foot ulceration and resolved left lower extremity extremity cellulitis. Patient denies any fever chills nausea vomiting. Patient off antibiotics, notes resolution of fatigue. Patient compliant with immobilization surgical shoe since prior visit. Patient is diabetic and denies any pain to his ulceration secondary to neuropathy has been offloading the site with a surgical shoe and heel weightbearing. Patient was seen by urgent care in the emergency room for left lower extremity cellulitis. Patient was placed on Keflex and noted improvement in swelling and redness to his left leg. Patient has no other complaints. He denies any constitutional symptoms at current. Patient had notable discomfort with use of the total contact cast. Objective Data Objective Data Vital Signs: Vital Signs Temp Pulse Resp BP 96.0 F L 81 18 140/68 H 05/31/21 11:33 05/31/21 11:33 05/25/21 09:19 05/31/21 11:33 Oxygen Delivery Method Room Air Weight: 181.437 kg Body Mass Index (BMI) 50.0 Physical Exam Narrative Patient is alert oriented to person place and time patient is performing heel weightbearing to left lower extremity in surgical shoe and full weightbearing on the right lower extremity. Vascular: +1 pitting edema noted to bilateral lower extremities. Some varicosities noted. Dorsalis pedis posterior tibial pulses palpable 2 out of 4 to bilateral lower extremity compartments. Capillary fill time brisk to lesser digits. Neurologic: Light touch protective sensation diminished to bilateral feet. Dermatologic: Full-thickness ulceration noted just distal to the plantar first metatarsal head. Pre and post debridement measurements documented in nursing notes. Periwound skin demonstrates slight hyperkeratosis that was removed and removed with debridement. No signs of infection deep probing or undermining periwound crepitus or fluctuance noted at this time. Musculoskeletal: No pain with calf squeeze to bilateral lower extremity. Muscular strength 5 out of 5 to bilateral lower extremity compartments. Hallux rigidus noted bilaterally which is likely contributing to wound formation of the left lower extremity. Patient has a preulceration to the right medial hallux secondary to hallux rigidus as well. Debridement Note Debridement Note Post-Debridement Measurements and Additional Note: Post-Debridement Measurements/Treatment WC - Nurse 1 - General Ulcer Assessment Start: 05/22/21 08:58 Freq: Status: Active Protocol: WC.LOWEXT Activity Type Activity Date Activity User E-Sign Co-Sign Detail Recorded Client Recorded Date Recorded By Document 05/22/21 08:58 JOSÉ MIGUEL [id number] 05/22/21 09:01 KR Document 05/25/21 09:19 MT [id number] 05/25/21 09:26 MT Document 05/31/21 11:33 KR [id number] 05/31/21 11:34 KR 05/22/21 05/25/21 05/31/21 08:58 09:19 11:33 WC - Today's Visit Information Type of service Follow-up Visit Follow-up Visit Follow-up Visit (Physician/RECEIVING AND PROCESSING SUPERVISOR (Physician/RECEIVING AND PROCESSING SUPERVISOR (Physician/RECEIVING AND PROCESSING SUPERVISOR ) ) ) Arrival Mode Ambulatory, Ambulatory, Cane Crutches Crutches Accompanied by self Patient Identification Verified (Name & Yes Yes Yes ) Height and Weight Body Mass Index (BMI) 50.0 50.0 50.0 BMI Classification Obese Obese Obese Vital Signs Temperature (97.8 F-99.1 F) 97.4 F L 98.3 F 96.0 F L Temperature Source Temporal Temporal Temporal Pulse Rate (60-100) 88 91 81 Pulse Location Monitor Monitor Monitor Respiratory Rate (12-18) 18 Respiratory rate source Observation Oxygen Delivery Method Room Air Blood Pressure (90/60-120/80) 141/88 H 145/63 H 140/68 H Blood Pressure Mean (mm Hg) 105 90 92 Source Monitor Monitor Monitor Position Sitting Sitting Sitting Blood Pressure Location Left Arm Right Arm Left Arm History Since Last Visit- (Skip if this is Patient's initial visit) Have you changed medications since your No No last visit? Any new allergies or adverse reactions No No Had a fall/change in ADL's that may No No increase risk of falls Signs or symptoms of abuse and/or No No neglect since last visit Have you been in the hospital since your No No last visit? Has dressing in place as prescribed Yes Yes Yes Has compression in place as prescribed Yes Yes N/A Has offloadiing in place as prescribed N/A Yes N/A Experienced any changes in pain level or No Yes No management Left Footwear Regular Shoe Regular Shoe Regular Shoe Right Footwear Regular Shoe Regular Shoe Regular Shoe Pain Scale: 0-10 Numeric Is Patient Pain Free? Yes Yes Yes WC - Nurse 1 - General Ulcer Measurement Start: 05/22/21 08:58 Freq: Status: Active Protocol: Activity Type Activity Date Activity User E-Sign Co-Sign Detail Recorded Client Recorded Date Recorded By Document 05/22/21 08:58 KR [id number] 05/22/21 09:01 KR Document 05/25/21 09:19 MT [id number] 05/25/21 09:26 MT Document 05/31/21 11:33 KR [id number] 05/31/21 11:34 KR 05/22/21 05/25/21 05/31/21 08:58 09:19 11:33 Wound Center Nurse 1 #1- L GREAT TOE PLANTAR -Current Size (cm) - Length 0.8 0.4 -Current Size (cm) - Width 0.5 0.3 -Current Size (cm) - Depth 0.2 0.2 -Total Square Cm 0.40 0.12 -Exudate Amt Small Small -Exudate Type Serosanguineous Serosanguineous -Wound Margin Distinct, Distinct, Outline Outline Attached Attached -Granulation Amt Small (1-33%) Small (1-33%) -Granulation Quality [place] -Necrosis Amt Small (1-33%) None Present (0 %) -Necrotic Tissue Type Adherent Slough -Texture (Diane-wound Skin Appearance) Assessed, Assessed Assessed, Scarring Scarring -Moisture (Diane-wound Skin Appearance) Assessed,Dry/ Assessed Assessed,Dry/ Scaly Scaly -Color (Diane-wound Skin Appearance) No Abnormality, Assessed No Abnormality, Assessed Assessed -Temperature (Diane-wound Skin No Abnormality No Abnormality No Abnormality Appearance) (Pt Warm) (Pt Warm) (Pt Warm) -Tenderness on Palpation (Diane-wound No No No Skin Appearance) -Ulcer Cleansing Rinsed/ Soap and Water Rinsed/ Irrigated with Irrigated with Saline Saline -Foul Odor after Cleansing No No -Anesthetic Used 5% Lidocaine 5% Lidocaine Gel Gel Lower Limb Edema Present NA WC - Nurse 2 - General Ulcer CM Notes Start: 05/22/21 08:58 Freq: Status: Active Protocol: Activity Type Activity Date Activity User E-Sign Co-Sign Detail Recorded Client Recorded Date Recorded By Document 05/22/21 09:06 [id number] 05/22/21 09:08 JF Edit Result 05/22/21 09:06 JF (1) [id number] 05/22/21 09:09 Document 05/31/21 11:46 MW [id number] 05/31/21 11:49 MW (1) #1- L GREAT TOE PLANTAR - Offloading => Yes - Type of Offloading => Total Contact Cast => (TCC) - Left ($) 05/22/21 05/31/21 09:06 11:46 Wound Center Nurse 2 #1- L GREAT TOE PLANTAR -Time 09:06 11:49 -Correct Patient Yes Yes -Correct Side, Site, Position Yes Yes -Correct Procedure Yes Yes -Procedure Performed Yes Yes -Type of Procedure Debridement Debridement -Clinical Debridement Subcutaneous Subcutaneous -Tissue Removed Subcutaneous Subcutaneous -Post Debridement (cm) - Length 0.8 0.5 -Post Debridement (cm) - Width 0.8 0.4 -Post Debridement (cm) - Depth 0.2 0.2 -Total Square (Post) (cm) 0.64 0.20 -Area of Debridement (cm) - Length 0.8 0.5 -Area of Debridement (cm) - Width 0.8 0.4 -Total Square (Area) (cm) 0.64 0.20 -Tunneling No No -Undermining/Tunneling No No -Circular Undermining No No -Wound/Ulcer Outcome Not Healed Not Healed -Ulcer Cleansing Rinsed/ Rinsed/ Irrigated with Irrigated with Saline Saline -Foul Odor after Cleansing No No -Bioengineered Tissue No No -Bleeding Controlled with Pressure Pressure -Treatment Response Procedure Procedure Tolerated Well Tolerated Well -Offloading Yes No -Type of Offloading Total Contact Cast (TCC) - Left ($) -Debridement - Subq, 1st 20sq cm Yes Yes Pain Scale: 0-10 Numeric Is Patient Pain Free? Yes Yes WC - Nurse 3 - General Ulcer D/C NN Start: 05/22/21 08:58 Freq: Status: Active Protocol: Activity Type Activity Date Activity User E-Sign Co-Sign Detail Recorded Client Recorded Date Recorded By Document 05/22/21 09:38 [facility] [id number] 04/05/22 09:39 BMF Document 05/25/21 09:28 [place] [id number] 05/25/21 09:29 MT 05/22/21 05/25/21 09:38 09:28 Wound Care Nurse 3 #1- L GREAT TOE PLANTAR -Ulcer Cleansing Rinsed/ Irrigated with Saline -Foul Odor after Cleansing No -Primary Dressing Applied Promogran Promogran Dionne Matter Dionne Matter -Other Dressing xtrasorb, tcc undercast -Primary Dressing Covered/Secured with Dry Gauze, Secured with Tape -Promogran Dionne Matter 1 1 Left -Tubular Bandage Single Layer -Size of Tubigrip Used Size F -Size F ($) 1 Treatment Response Procedure Tolerated Well Pain Scale: 0-10 Numeric Is Patient Pain Free? 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 Patient has resolved cellulitis of left lower extremity at this time. Patient will no any signs of infection and contact us if any were to develop. He will observe his symptoms at this time. Left plantar foot wound was excisionally debrided down to including level of subcutaneous tissue of all nonviable tissue using a 5 mm dermal curette without incident patient tolerated procedure well no anesthesia required due to peripheral neuropathy hemostasis obtained with light compression. Pre and post debridement measurements documented in nursing note. Wound was dressed with Dionne and dry sterile dressing. Patient will continue Keflex 500 mg 4 times daily at this will cover his recent C&S. We will discontinue total contact casting is the difficulty tolerating it. Left hallux wound is improving significantly at this time and is nearly healed. He will offload left foot with a surgical shoe will add a dancers pad. He will dress the site daily after cleansing it with soap and water drying it off and applying antibiotic ointment with a 4 x 4 gauze and paper tape. Once his wounds are healed we will likely need to get custom diabetic shoes due to his severe hallux rigidus and neuropathic status. If there are any delays will consider vascular referral or elective arthroplasty of the digit to offload the ulcer site. 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
[2021-06-12 09:08] VITALS: BP 156/76; PULSE 92; TEMP 35.7; BMI 50.0
--- NOTE | 2021-06-12 09:22 | PCM.WC.PN ---
History of Present Illness Date of Service: 06/12/21 Progress of Wound: This 45-year-old male presents to clinic for follow-up on a left foot ulceration and resolved left lower extremity extremity cellulitis. Patient denies any fever chills nausea vomiting. Patient off antibiotics, notes resolution of fatigue. Patient compliant with immobilization surgical shoe since prior visit. We had attempted total contact casting, but the patient did not tolerate it well. Patient notes improvement of his wound at this time and compliance with treatment. Patient denies any constitutional symptoms and notes that he feels his wound is healed. Objective Data Objective Data Vital Signs: Vital Signs Temp Pulse Resp BP 96.2 F L 92 18 156/76 H 06/12/21 09:08 06/12/21 09:08 05/25/21 09:19 06/12/21 09:08 Oxygen Delivery Method Room Air Weight: 181.437 kg Body Mass Index (BMI) 50.0 Physical Exam Narrative Patient is alert oriented to person place and time patient is performing heel weightbearing to left lower extremity in surgical shoe and full weightbearing on the right lower extremity. Vascular: +1 pitting edema noted to bilateral lower extremities. Some varicosities noted. Dorsalis pedis posterior tibial pulses palpable 2 out of 4 to bilateral lower extremity compartments. Capillary fill time brisk to lesser digits. Neurologic: Light touch protective sensation diminished to bilateral feet. Dermatologic: Full-thickness wound to plantar metatarsal head on the left side is healed at this time. No residual residual signs of hypertrophy or infection. Musculoskeletal: No pain with calf squeeze to bilateral lower extremity. Muscular strength 5 out of 5 to bilateral lower extremity compartments. Hallux rigidus noted bilaterally which is likely contributing to wound formation of the left lower extremity. Patient has a preulceration to the right medial hallux secondary to hallux rigidus as well. Debridement Note Debridement Note Post-Debridement Measurements and Additional Note: Post-Debridement Measurements/Treatment WC - Nurse 1 - General Ulcer Assessment Start: 05/22/21 08:58 Freq: Status: Active Protocol: DAGO.LOWEXT Activity Type Activity Date Activity User E-Sign Co-Sign Detail Recorded Client Recorded Date Recorded By Document 05/22/21 08:58 KR [id number] 05/22/21 09:01 KR Document 05/25/21 09:19 SC [id number] 05/25/21 09:26 MT Document 05/31/21 11:33 KR [id number] 05/31/21 11:34 KR Document 06/12/21 09:08 AK [id number] 06/12/21 09:11 AK 05/22/21 05/25/21 05/31/21 08:58 09:19 11:33 WC - Today's Visit Information Type of service Follow-up Visit Follow-up Visit Follow-up Visit (Physician/DEMONSTRATOR KNITTING (Physician/DEMONSTRATOR KNITTING (Physician/DEMONSTRATOR KNITTING ) ) ) Arrival Mode Ambulatory, Ambulatory, Cane Crutches Crutches Accompanied by self Patient Identification Verified (Name & Yes Yes Yes ) Patient Requires Transmission-Based Precautions Safety Precautions Height and Weight Body Mass Index (BMI) 50.0 50.0 50.0 BMI Classification Obese Obese Obese Vital Signs Temperature (97.8 F-99.1 F) 97.4 F L 98.3 F 96.0 F L Temperature Source Temporal Temporal Temporal Pulse Rate (60-100) 88 91 81 Pulse Location Monitor Monitor Monitor Respiratory Rate (12-18) 18 Respiratory rate source Observation Oxygen Delivery Method Room Air Blood Pressure (90/60-120/80) 141/88 H 145/63 H 140/68 H Blood Pressure Mean (mm Hg) 105 90 92 Source Monitor Monitor Monitor Position Sitting Sitting Sitting Blood Pressure Location Left Arm Right Arm Left Arm History Since Last Visit- (Skip if this is Patient's initial visit) Have you changed medications since your No No last visit? Any new allergies or adverse reactions No No Had a fall/change in ADL's that may No No increase risk of falls Signs or symptoms of abuse and/or No No neglect since last visit Have you been in the hospital since your No No last visit? Has dressing in place as prescribed Yes Yes Yes Has compression in place as prescribed Yes Yes N/A Has offloadiing in place as prescribed N/A Yes N/A Experienced any changes in pain level or No Yes No management Left Footwear Regular Shoe Regular Shoe Regular Shoe Right Footwear Regular Shoe Regular Shoe Regular Shoe Pain Scale: 0-10 Numeric Is Patient Pain Free? Yes Yes Yes 06/12/21 09:08 - Today's Visit Information Type of service Follow-up Visit (Physician/DEMONSTRATOR KNITTING ) Arrival Mode Ambulatory Accompanied by Patient Identification Verified (Name & Yes ) Patient Requires Transmission-Based No Precautions Safety Precautions NA Height and Weight Body Mass Index (BMI) 50.0 BMI Classification Obese Vital Signs Temperature (97.8 F-99.1 F) 96.2 F L Temperature Source Temporal Pulse Rate (60-100) 92 Pulse Location Monitor Respiratory Rate (12-18) Respiratory rate source Oxygen Delivery Method Blood Pressure (90/60-120/80) 156/76 H Blood Pressure Mean (mm Hg) 102 Source Monitor Position Blood Pressure Location History Since Last Visit- (Skip if this is Patient's initial visit) Have you changed medications since your No last visit? Any new allergies or adverse reactions No Had a fall/change in ADL's that may No increase risk of falls Signs or symptoms of abuse and/or No neglect since last visit Have you been in the hospital since your No last visit? Has dressing in place as prescribed Yes Has compression in place as prescribed N/A Has offloadiing in place as prescribed N/A Experienced any changes in pain level or No management Left Footwear Regular Shoe Right Footwear Regular Shoe Pain Scale: 0-10 Numeric Is Patient Pain Free? Yes WC - Nurse 1 - General Ulcer Measurement Start: 05/22/21 08:58 Freq: Status: Active Protocol: Activity Type Activity Date Activity User E-Sign Co-Sign Detail Recorded Client Recorded Date Recorded By Document 05/22/21 08:58 [id number] 05/22/21 09:01 KR Document 05/25/21 09:19 SC [id number] 05/25/21 09:26 SC Document 05/31/21 11:33 KR [id number] 05/31/21 11:34 KR Document 06/12/21 09:08 AK [id number] 06/12/21 09:11 AK 05/22/21 05/25/21 05/31/21 08:58 09:19 11:33 Wound Center Nurse 1 #1- L GREAT TOE PLANTAR -Combined with other wound -Current Size (cm) - Length 0.8 0.4 -Current Size (cm) - Width 0.5 0.3 -Current Size (cm) - Depth 0.2 0.2 -Total Square Cm 0.40 0.12 -Date of Last Picture (Recall this field) -Photo Taken -Epithelialization -Tunneling -Undermining/Tunneling -Circular Undermining -Change in Wound Grade/Stage -Exudate Amt Small Small -Exudate Type Serosanguineous Serosanguineous -Wound Margin Distinct, Distinct, Outline Outline Attached Attached -Granulation Amt Small (1-33%) Small (1-33%) -Granulation Quality [place] -Slough/Fibrin -Necrosis Amt Small (1-33%) None Present (0 %) -Necrotic Tissue Type Adherent Slough -Structure Exposed -Texture (Diane-wound Skin Appearance) Assessed, Assessed Assessed, Scarring Scarring -Moisture (Diane-wound Skin Appearance) Assessed,Dry/ Assessed Assessed,Dry/ Scaly Scaly -Color (Diane-wound Skin Appearance) No Abnormality, Assessed No Abnormality, Assessed Assessed -Temperature (Diane-wound Skin No Abnormality No Abnormality No Abnormality Appearance) (Pt Warm) (Pt Warm) (Pt Warm) -Tenderness on Palpation (Diane-wound No No No Skin Appearance) -Ulcer Cleansing Rinsed/ Soap and Water Rinsed/ Irrigated with Irrigated with Saline Saline -Foul Odor after Cleansing No No -Anesthetic Used 5% Lidocaine 5% Lidocaine Gel Gel Lower Limb Edema Present NA 06/12/21 09:08 Wound Center Nurse 1 #1- L GREAT TOE PLANTAR -Combined with other wound No -Current Size (cm) - Length 0.1 -Current Size (cm) - Width 0.1 -Current Size (cm) - Depth 0.1 -Total Square Cm 0.01 -Date of Last Picture (Recall this 06/12/21 field) -Photo Taken Yes -Epithelialization None Present -Tunneling No -Undermining/Tunneling No -Circular Undermining No -Change in Wound Grade/Stage No -Exudate Amt None Present -Exudate Type -Wound Margin Distinct, Outline Attached -Granulation Amt None Present (0 %) -Granulation Quality N/A -Slough/Fibrin No -Necrosis Amt None Present (0 %) -Necrotic Tissue Type -Structure Exposed N/A -Texture (Diane-wound Skin Appearance) No Abnormality, Assessed -Moisture (Diane-wound Skin Appearance) No Abnormality, Assessed -Color (Diane-wound Skin Appearance) -Temperature (Diane-wound Skin No Abnormality Appearance) (Pt Warm) -Tenderness on Palpation (Diane-wound No Skin Appearance) -Ulcer Cleansing Rinsed/ Irrigated with Saline -Foul Odor after Cleansing No -Anesthetic Used 5% Lidocaine Gel Lower Limb Edema Present WC - Nurse 2 - General Ulcer CM Notes Start: 05/22/21 08:58 Freq: Status: Active Protocol: Activity Type Activity Date Activity User E-Sign Co-Sign Detail Recorded Client Recorded Date Recorded By Document 05/22/21 09:06 [id number] 05/22/21 09:08 JF Edit Result 05/22/21 09:06 JF (1) [id number] 05/22/21 09:09 JF Document 05/31/21 11:46 MW [id number] 05/31/21 11:49 MW Document 06/12/21 09:19 JF [id number] 06/12/21 09:20 JF (1) #1- L GREAT TOE PLANTAR - Offloading => Yes - Type of Offloading => Total Contact Cast => (TCC) - Left ($) 05/22/21 05/31/21 06/12/21 09:06 11:46 09:19 Wound Center Nurse 2 #1- L GREAT TOE PLANTAR -Time 09:06 11:49 -Correct Patient Yes Yes No -Correct Side, Site, Position Yes Yes No -Correct Procedure Yes Yes No -Procedure Performed Yes Yes No -Type of Procedure Debridement Debridement -Clinical Debridement Subcutaneous Subcutaneous -Tissue Removed Subcutaneous Subcutaneous -Post Debridement (cm) - Length 0.8 0.5 0 -Post Debridement (cm) - Width 0.8 0.4 0 -Post Debridement (cm) - Depth 0.2 0.2 0 -Total Square (Post) (cm) 0.64 0.20 0 -Area of Debridement (cm) - Length 0.8 0.5 0 -Area of Debridement (cm) - Width 0.8 0.4 0 -Total Square (Area) (cm) 0.64 0.20 0 -Tunneling No No -Undermining/Tunneling No No -Circular Undermining No No -Wound/Ulcer Outcome Not Healed Not Healed Healed- Epithelialized -Ulcer Cleansing Rinsed/ Rinsed/ Irrigated with Irrigated with Saline Saline -Foul Odor after Cleansing No No -Bioengineered Tissue No No -Bleeding Controlled with Pressure Pressure -Treatment Response Procedure Procedure Tolerated Well Tolerated Well -Offloading Yes No -Type of Offloading Total Contact Cast (TCC) - Left ($) -Debridement - Subq, 1st 20sq cm Yes Yes Pain Scale: 0-10 Numeric Is Patient Pain Free? Yes Yes Yes - Nurse 3 - General Ulcer D/C NN Start: 05/22/21 08:58 Freq: Status: Active Protocol: Activity Type Activity Date Activity User E-Sign Co-Sign Detail Recorded Client Recorded Date Recorded By Document 05/22/21 09:38 [facility] [id number] 05/22/21 09:39 [facility] Document 05/25/21 09:28 MT [id number] 05/25/21 09:29 MT Document 05/31/21 11:54 DL [id number] 05/31/21 11:55 DL 05/22/21 05/25/21 05/31/21 09:38 09:28 11:54 Wound Care Nurse 3 #1- L GREAT TOE PLANTAR -Ulcer Cleansing Rinsed/ Rinsed/ Irrigated with Irrigated with Saline Saline -Foul Odor after Cleansing No No -Primary Dressing Applied Promogran Promogran Dionne Matter Dionne Matter -Other Dressing xtrasorb, tcc Bacitracin undercast -Primary Dressing Covered/Secured with Dry Gauze, Dry Gauze, Secured with Secured with Tape Tape -Promogran Dionne Matter 1 1 Left -Tubular Bandage Single Layer Single Layer -Size of Tubigrip Used Size F Size E -Size E ($) 1 -Size F ($) 1 Treatment Response Procedure Procedure Tolerated Well Tolerated Well Pain Scale: 0-10 Numeric Is Patient Pain Free? Yes Yes Yes - Visit Discharge Discharge Condition Stable Stable Stable Ambulatory Status Ambulatory Ambulatory Ambulatory Transportation Private Auto Private Auto Private Auto Clinical Summary of Care Provided Yes Assessment/Plan Assessment/Plan (1) Non-pressure chronic ulcer of other part of left foot with fat layer exposed: CODE(S): L97.522 - Non-pressure chronic ulcer of other part of left foot with fat layer exposed PLAN: Patient examined evaluated, all findings discussed with patient in detail. Plantar left foot wound is healed at this time. I recommend daily foot checks on the left side to ensure resolution of the left plantar foot wound, he will continue to apply antibiotic ointment to the area to keep it soft. He will ambulate in supportive shoe gear. Patient will follow up as an outpatient in our clinic [facility] will consider custom diabetic shoes at that time. Patient to follow-up within the next 2 weeks. (2) Type 2 diabetes mellitus with diabetic polyneuropathy: CODE(S): E11.42 - Type 2 diabetes mellitus with diabetic polyneuropathy QUALIFIERS: Diabetes mellitus fci insulin use: unspecified joint terminal attack controller insulin use status Qualified Code(s): E11.42 - Type 2 diabetes mellitus with diabetic polyneuropathy
== END 2021-06-12 15:16 | disposition home or self-care (01) ==
LOC: WC 09:00
PROVIDERS: PCP Internal Medicine; Visit Provider Podiatrist
DX: L97.522 Non-pressure chronic ulcer of other part of left foot with fat layer exposed (principal); E11.42 Type 2 diabetes mellitus with diabetic polyneuropathy
CPT/HCPCS: 11042; 29445; 99212; 99213; G0463

== ENCOUNTER → 2021-12-04 | Outpatient (CLI) | payer MEDICAID, SELFPAY | END | disposition home or self-care (01) | PROVIDERS: PCP Family Medicine; Visit Provider Podiatrist | DX: L03.031 Cellulitis of right toe (principal) | CPT/HCPCS: 87070; 87077; 87186; 87205 ==

== ENCOUNTER → 2022-09-27 | Outpatient (CLI) | payer OTHER, MEDICAID, SELFPAY | END | disposition home or self-care (01) | LOC: LAB 16:03 | PROVIDERS: PCP Family Medicine; Referring Provider Nurse Practitioner; Visit Provider Nurse Practitioner | DX: Z12.5 Encounter for screening for malignant neoplasm of prostate (principal) | CPT/HCPCS: 36415; 84153; G0103 ==

== ENCOUNTER 2023-02-01 15:30 | Emergency (ER) | payer OTHER, SELFPAY ==
[2023-02-01 15:31] VITALS: BP 128/85; PULSE 98; RESP 15; TEMP 36.6; O2SAT 96
--- NOTE | 2023-02-01 15:51 | RAD_ITS ---
EXAM: XR LEFT ANKLE COMPLETE, 3 OR MORE VIEWS CLINICAL INDICATION: pain TECHNIQUE: Frontal, lateral and oblique views of the left ankle. COMPARISON: XR Ankle dated 12/14/2016 FINDINGS: BONES/JOINTS: Old fracture of the distal fibula again seen. Mild degenerative narrowing of the tibiotalar joint. Dorsal and plantar calcaneal spurring is present. Dorsal spurring of the joints of the midfoot. SOFT TISSUES: Mild soft tissue swelling. No radiopaque foreign body. RAD/Ankle min 3 Views IMPRESSION: Chronic bony changes as described. Mild soft tissue swelling. Electronically Signed: Levy Rios MD at 16:42 EST ,
--- NOTE | 2023-02-01 15:52 | EDS_ITS ---
HPI History of Present Illness Chief Complaint: Other, Pain/Inj Narrative Narrative: 47-year-old male with 2 to 3 days of left third toe pain. He states he started to radiate up his foot and into his tibial region. He has a history of surgery on this foot he states is performed by Dr. Benites. He does follow-up with Dr. Benites regularly for basic footcare. Patient is not a diabetic. Patient states that he has had infections in his feet. Patient notes that he has not had a fever but feels mildly unwell. He might have body aches but no chills or fevers. Denies any new trauma. He states that the pain does radiate up into his ankle but he also has chronic ankle pain because he has broken the ankle and it is chronically swollen. PFSH PFS Medical History COVID-19 Former smoker Hyperglycemia Morbid obesity Non-pressure chronic ulcer of other part of left foot with fat layer exposed Right foot infection Home Medications sulfamethoxazole 800 mg-trimethoprim 160 mg tablet (Bactrim DS) 1 tab PO Q12H #10 tabs 08/11/22 [Rx Last Taken Unknown] ciprofloxacin HCl 500 mg tablet (Cipro) 500 mg PO BID #14 tabs 02/01/23 [Rx Last Taken Unknown] doxycycline monohydrate 100 mg capsule 100 mg PO BID #14 CAPSULES 02/01/23 [Rx Last Taken Unknown] Allergy/AdvReac Type Severity Reaction Status Date / Time No Known Allergies Allergy Verified 02/01/23 15:35 Family History Father Colon cancer Diabetes Skin cancer Mother Hypertension Surgical History History of ankle surgery History of tonsillectomy Hx of foot surgery Social History Smoking Status: Never smoker Smokeless tobacco user: chewing tobacco alcohol intake: current alcohol intake frequency: holidays/special occasions only substance use type: does not use frequency: 1-2 times per week ROS ROS ED Constitutional Constitutional ED: Denies chills, fever(s) or sweats Eyes Eyes: Denies blurry vision or change in vision ENT ENT ED: Denies ear pain or sore throat Cardiovascular Cardiovascular: Denies chest pain, palpitations or racing heartbeat Respiratory/Chest Respiratory/Chest: Denies cough, dyspnea or sputum Gastrointestinal Gastrointestinal: Denies abdominal pain, constipation, diarrhea, nausea or vomiting Genitourinary Genitourinary ED: Denies dysuria, hematuria or urinary frequency Musculoskeletal Musculoskeletal: Denies arthralgias, myalgias or neck pain Integumentary Reports rash and other Details: Mild erythema left third toe ; Denies abscess or Abrasions Neurologic Neurologic: Denies headache(s), paresthesias or weakness Psychiatric Psychiatric: Denies anxiety, depression, suicidal ideation or suicidal thoughts Endocrine Endocrinology: Denies polydipsia or polyuria EXAM Physical Exam Const Vital Signs: 02/01/23 15:31 02/01/23 15:47 Temperature 97.8 F Temperature Source Temporal Pulse Rate 98 Respiratory Rate 15 Respiratory Pattern Normal Blood Pressure 128/85 H Blood Pressure Mean 99 Pulse Ox 96 Oxygen Delivery Method Room Air Positive well nourished General Appearance ED: NAD HEENT normocephalic and atraumatic Neck full ROM Chest Wall inspection of chest normal Resp normal respiratory effort Cardio regular rate and regular rhythm Extremity Extremity Narrative: Mild erythema to left third toe. No increased warmth. There is a small wound at the distal aspect of the fat pad of the left third toe without increased erythema, drainage, induration surrounding. There is no tenderness to palpation of this toe on examination. Pedal pulses 2+ on the left foot. Left ankle nontender to palpation. No crepitance throughout. Calf soft nontender with no cords palpated. Compartments are soft. Neuro oriented x3 and CN's II-XII intact bilaterally Sensorium / Orientation: alert Motor Exam: strength 5/5 throughout Psych mental status grossly normal Skin no wounds MDM MDM MDM Narrative Medical decision making narrative: Patient presenting with mild general illness and increased left foot and calf pain. He went to urgent care who told to come to the emergency room for this. No systemic signs or symptoms otherwise. He has not a fever. On examination he has some erythema noted to the left third toe and there is some erythema mostly at the base of it but there is no tenderness, crepitance, increased warmth. Pedal pulses are intact in left foot. Left calf is nontender. Will obtain CBC to assess white blood cell count, hemoglobin, platelets. BMP to assess renal function, electrolytes. CRP and ESR to assess inflammatory markers. X-rays of the left foot and ankle will be obtained. Patient declines analgesia or antiemetics. He states he feels comfortable at this time. CBC shows no leukocytosis with a white blood cell count of 9.6. Hemoglobin stable 15.2. Platelets normal 241. Renal function electrolytes within normal limits. LFTs are normal. ESR within normal limits. CRP minimally elevated 11.60. X-rays of the left foot and left ankle show no acute findings on my interpretation. The radiologist interprets this and agrees. Discussed the case with Dr. Monte who recommended starting the patient on Cipro and doxycycline for broad-spectrum coverage. Patient is to be placed in a postop shoe. He is to keep the wound clean and dry. Dr. Whitney states he can follow-up with them office on Friday. Patient discharged stable condition. Impression: 1. Left foot cellulitis Lab Data Attestation: I reviewed the patient's lab results. Labs: Laboratory Results - last 24 hr 02/01/23 16:00 WBC 9.6 RBC 5.33 Hgb 15.2 Hct 44.1 MCV 82.7 MCH 28.5 MCHC 34.5 RDW Std Deviation 39.6 RDW Coeff of Gabriella 13.2 Plt Count 241 MPV 9.9 Immature Gran % (Auto) 0.300 Neut % (Auto) 58.2 Lymph % (Auto) 32.3 Russell % (Auto) 6.5 Eos % (Auto) 2.2 Baso % (Auto) 0.5 Absolute Neuts (auto) 5.6 Absolute Lymphs (auto) 3.11 Nucleated RBC % 0 ESR 13 Sodium 138 Potassium 3.5 Chloride 107 Carbon Dioxide 27.0 Anion Gap 4 L BUN 15 Creatinine 0.97 Est GFR (MDRD) Af Amer 107 Est GFR (MDRD) Non-Af 88 BUN/Creatinine Ratio 15.5 Glucose 181 H Calcium 8.9 Total Bilirubin 0.50 AST 18 ALT 30 Alkaline Phosphatase 107 C-React Prot Ext Range 11.60 H Total Protein 6.7 Albumin 3.4 Globulin 3.3 Albumin/Globulin Ratio 1.0 Radiography Diagnostic Testing: Clinical Impression(s) from Imaging Studies Ankle X-Ray 02/01/23 15:51 IMPRESSION: Chronic bony changes as described. Mild soft tissue swelling. Electronically Signed: Levy Rios MD at 16:42 EST , Foot X-Ray 02/01/23 16:10 IMPRESSION: No acute bone or joint abnormality. Stable arthroses as described. Electronically Signed: Levy Rios MD at 16:35 EST , Discharge Plan Triage Chief Complaint: Other, Pain/Inj ED Provider: Ovidio Cedillo Dx/Rx/DC Orders Instructions: ED Cellulitis Prescriptions: New ciprofloxacin HCl [Cipro] 500 mg tablet 500 mg PO BID Qty: 14 0RF doxycycline monohydrate 100 mg capsule 100 mg PO BID Qty: 14 0RF No Action sulfamethoxazole-trimethoprim [Bactrim DS] 800-160 mg tablet 1 tab PO Q12H Qty: 10 0RF Primary Care Provider: Licha Brar Referrals: Ayad Monte DPM [Med Staff - Active Staff] - 3-5 Days Licha Brar MD [Primary Care Provider] - Disposition Disposition: Home, Self Care
--- NOTE | 2023-02-01 16:10 | RAD_ITS ---
EXAM: XR LEFT FOOT COMPLETE, 3 OR MORE VIEWS CLINICAL INDICATION: pain TECHNIQUE: Frontal, lateral and oblique views of the left foot. COMPARISON: XR Foot dated 04/27/2021 FINDINGS: BONES/JOINTS: Prominent arthritic changes of the joints of the midfoot and first and second MTP joints again noted without significant interval change. Dorsal and plantar calcaneal spurring is present. Old fracture of the distal tibia again seen. SOFT TISSUES: Normal. No soft tissue swelling or gas. No radiopaque foreign body. RAD/Foot min 3 Views IMPRESSION: No acute bone or joint abnormality. Stable arthroses as described. Electronically Signed: Levy Rios MD at 16:35 EST ,
[2023-02-01 16:38] LABS: Absolute Lymphocyte Count 3.11 X10^3/uL (0.83-4.51); Absolute Neutrophil Count 5.6 X10^3/uL (2.0-7.7); Basophil# 0.05 X10^3/uL; Basophil% 0.5 % (0-1); Eosinophil# 0.21 X10^3/uL; Eosinophils% 2.2 % (0-5); Hematocrit 44.1 % (40-54); Hemoglobin 15.2 g/dL (13.0-16.5); Lymphocyte # 3.11 X10^3/ul (0.83-4.51); Lymphocyte % 32.3 % (19-41); Mean Corp Hgb Conc 34.5 g/dL (32-36); Mean Corpuscular Hgb 28.5 pg (27.0-32.0); Mean Corpuscular Volume 82.7 fL (80-94); Mean Platelet Vol. 9.9 fl (6.2-12.0); Monocyte# 0.63 X10^3/uL; Monocyte% 6.5 % (0-10); NRBC Flagged by Analyzer 0 % (0-5); Neutrophil % 58.2 % (47-70); Platelet Count 241 K/mm3 (150-450); RBC Distribution Width CV 13.2 % (11.6-14.6); RBC Distribution Width SD 39.6 fl (35.1-43.9); Red Blood Count 5.33 M/mm3 (4.6-6.2); White Blood Count 9.6 K/mm3 (4.4-11.0)
[2023-02-01 16:49] LABS: Erythrocyte Sedimentation Rate 13 mm/hr (0-20)
[2023-02-01 16:53] LABS: AST(SGOT) 18 U/L (15-37); Alanine Aminotransfer ALT/SGPT 30 U/L (16-61); Albumin, Serum 3.4 g/dL (3.2-5.0); Alkaline Phosphatase 107 U/L (45-117); Anion Gap 4 (5-15); BUN 15 mg/dL (7-18); BUN/Creat Ratio 15.5 RATIO (10-20); Calcium,Total 8.9 mg/dL (8.5-10.1); Chloride 107 mmol/L (98-107); Creatinine, Serum 0.97 mg/dL (0.70-1.30); EST Glomerular Filtration Rate 88 mL/min (>60); Est Glom Filt Rate - Afr Amer 107 mL/min (>60); Globulin 3.3 g/dL (2.2-4.2); Glucose 181 mg/dL (74-106); Potassium 3.5 mmol/L (3.5-5.1); Protein, Total 6.7 g/dL (6.4-8.2); Sodium Level 138 mmol/L (136-145)
[2023-02-01] MEDS: Doxycycline 100 MG CAPSULE PO (18:15)
[2023-02-01] MEDS: Ciprofloxacin 500 MG Tablet PO (18:15)
== END 2023-02-01 18:21 | disposition home or self-care (01) ==
PROVIDERS: Emergency Provider Student in an Organized Health Care Education/Training Program; PCP Internal Medicine; Visit Provider Student in an Organized Health Care Education/Training Program
DX: L03.116 Cellulitis of left lower limb (principal); F17.220 Nicotine dependence, chewing tobacco, uncomplicated
CPT/HCPCS: 73610; 73630; 80053; 85025; 85652; 86140; 99284; A4216

== ENCOUNTER 2023-02-24 12:27 | Inpatient (IN) | payer OTHER, SELFPAY ==
[2023-02-24 12:05] VITALS: RESP 18; BMI 39.8
--- NOTE | 2023-02-24 12:21 | MRI_ITS ---
STUDY: MRI LEFT FOREFOOT WITHOUT CONTRAST REASON FOR EXAM: Male, 47 years old. 2nd toe osteomyelitis TECHNIQUE: Standardized fat and water weighted pulse sequences were obtained in all 3 orthogonal planes. COMPARISON: X-ray February 01, 2023 FINDINGS: There is severe degenerative arthrosis of the metatarsophalangeal joint of the hallux. Normal tibial and fibular sesamoids, with normal sesamoids-first metatarsal articulations. Normal interphalangeal joint of the hallux. Normal proximal and distal phalanges of the great toe. Normal medial and lateral heads of the flexor hallucis brevis tendons. Normal flexor and extensor hallucis longus tendons. There is moderate joint space narrowing and spurring of the second MTP joint. There is marrow edema of the distal phalanx of the second toe series 8 image 12. Normal third through fifth metatarsophalangeal (MTP) joints. Normal interphalangeal joints of the second through fifth toes. Normal proximal, middle and distal phalanges of the third through fifth toes. Normal first through fourth intermetatarsal spaces. Normal flexor and extensor tendons of the second through fifth toes. Normal visualized metatarsi. There is diffuse atrophy of the intrinsic muscles of the forefoot consistent with a peripheral neuropathy. There is swelling of the second toe. MRI/Lower Ext/No Jt/w/o IMPRESSION: Osteomyelitis of the second distal phalanx. Arthritic change of the first and second MTP joints. Electronically Signed: Leodan Travis MD at 18:07 EST ,
--- OUTSIDE RECORDS SUMMARY | 2023-02-24 12:24 | XMS RPT_ITS | CCD ---
Author Name Unknown Address [address] [place] [address] Organization [facility] Care Team Providers Care Strategic Partner Development Manager Name Role Phone AVANI MARROQUIN Attending Unavailable AVANI MARROQUIN Primary Care Unavailable AVANI MARROQUIN Admitting Unavailable Rory Smith MD Primary Care Provider Unavailable Primary Care Provider Rory Parker MD Primary Care Provider Unavailable Primary Care Provider UnavailLICHA Etienne MD Primary Care Physician ( [phone]) LICHA BRAR MD Primary Care Unavailab SIAAC Perez MD Attending Unavailable Licha Brar MD Primary Care Provider [phone] LICHA BRAR Primary Care Unavailable Medications Current Medications Medication Drug Class(es) Dates Sig (Normalized) Sig (Original) amoxicillin 875 mg / clavulanate 125 mg oral tablet (2 sources) Penicillin-class Antibacterial Start: 09-21-2022 End: 10-01-2022 take 1 tablet by mouth every twelve hours amoxicillin-clav ulanate 875 mg-125 mg oral tablet 1 tab(s), Oral, q12h, X 10 day(s), # 20 tab(s), 0 Refill(s), 10/01/22 7:57:00 PM EDT Start Date: 09/21/22 Stop Date: 10/01/22 Status: Ordered Completed/Discontinued Medications Medication Drug Class(es) Dates Sig (Normalized) Sig (Original) [id number] 200 actuat albuterol 0.09 mg/actuat metered dose inhaler (4 sources) beta2-Adrenergic Agonist Start: 01-28-2019 End: 05-18-2021 take 2 puff(s) by inhalation every four hours as needed albuterol HFA (PROAIR HFA) 90 mcg/actuation inhaler Inhale 2 Puffs as instructed every 4 hours as needed. 1 Inhaler 0 01/28/2019 05/18/2021 Discontinued (Course of therapy completed) Problems Active Problems Problem Classification Problem Date Documented Da te Episodic/Chronic Administrative/social admission (1 source) Patient encounter status; Translations: [Dietary counseling and surveillance] Episodic Diabetes mellitus without complication (1 source) Prediabetes; Translations: [Prediabetes] Episodic Fever of unknown origin (3 sources) Fever, unspecified; Translations: [Fever, unspecified] Onset: 02-03-2020 Episodic Headache; including migraine (1 source) Headache; including migraine; Translations: [Headache, unspecified] Onset: 02-03-2020 Inflammatory conditions of male genital organs (1 source) Abscess of scrotum; Translations: [Inflammatory disorders of scrotum] Episodic Malaise and fatigue (1 source) Other fatigue; Translations: [Other fatigue] Onset: 02-03-2020 Episodic Other connective tissue disease (2 sources) Pain in right lower limb; Translations: [Pain in right leg] Episodic Other gastrointestinal disorders (1 source) Diarrhea, unspecified; Translations: [Diarrhea, unspecified] Onset: 02-03-2020 Episodic Other lower respiratory disease (1 source) Cough; Translations: [Acute cough] Episodic Other nutritional; endocrine; and metabolic disorders (1 source) Morbid obesity; Translations: [Morbid (severe) obesity due to excess calories] Chronic Other nutritional; endocrine; and metabolic disorders (1 source) Body mass index 40+ - severely obese; Translations: [Body mass index (BMI) 50.0-59.9, adult] Chronic Other upper respiratory infections (1 source) Acute pansinusitis; Translations: [Acute pansinusitis, unspecified] Episodic Skin and subcutaneous tissue infections (1 source) Cellulitis of left foot; Translations: [Cellulitis of left lower limb] 02-01-2023 Episodic Past or Other Problems Problem Classification Problem Date Documented Da te Episodic/Chronic Sprains and strains (14 sources) Injury of thigh; Translations: [Strain of muscle, fascia and tendon of the posterior muscle group at thigh level, right thigh, subsequent encounter] Onset: 05-23-2021 Episodic Results Test Name Value Interpretation Reference Range Facil ity Vital Signs Date Time Vital Sign Value Performing Clinician Facility 02-01-2023 15:18-0500 Body temperature 98.1 [degF] Javier Reed MD Work Phone: [facility] 02-01-2023 15:18-0500 Body weight 176.45 kg Javier Reed MD Work Phone: [facility] 02-01-2023 15:18-0500 Diastolic blood pressure 84 mm[Hg] Javier Reed MD Work Phone: [facility] 02-01-2023 15:18-0500 Heart rate 97 /min Javier Reed MD Work Phone: [facility] 02-01-2023 15:18-0500 Respiratory rate 16 /min Javier Reed MD Work Phone: [facility] 02-01-2023 15:18-0500 SaO2% (BldA) [Mass fraction] 98 % Javier Reed MD Work Phone: [facility] 02-01-2023 15:18-0500 Systolic blood pressure 126 mm[Hg] Javier Reed MD Work Phone: [facility] 09-21-2022 17:33-0400 Blood Pressure Location ISAAC BURGER MD [facility] 09-21-2022 17:33-0400 Body temperature 97.88 [degF] ISAAC BURGER MD [facility] 09-21-2022 17:33-0400 Diastolic Blood Pressure Non-Invasive 80 1 ISAAC BURGER MD [facility] 09-21-2022 17:33-0400 Heart rate 107 /min ISAAC BURGER MD [facility] 09-21-2022 17:33-0400 Systolic Blood Pressure Non-Invasive 119 1 ISAAC BURGER MD [facility] 01-22-2022 10:36-0500 Body temperature 97.81 [degF] Evelyn Mirtha [employer]PORATE CONCIERGE.AGING DEPARTMENT SUPERVISOR Work Phone: [facility] 01-22-2022 10:36-0500 Body weight 190.96 kg Evelyn Mirtha [employer]ATE [employer]ER[employer]AGING DEPARTMENT SUPERVISOR Work Phone: [facility] 01-22-2022 10:36-0500 Diastolic blood pressure 74 mm[Hg] Evelyn Mirtha [employer]PORATE CONCIERGE.AGING DEPARTMENT SUPERVISOR Work Phone: [facility] 01-22-2022 10:36-0500 Heart rate 102 /min Evelyn Mirtha [employer]ATE [employer]AG[employer] DEPARTMENT SUPERVISOR Work Phone: [facility] 01-22-2022 10:36-0500 Respiratory rate 16 /min Evelyn Mirtha [employer] DEPARTMENT SUPERVISOR Work Phone: [facility] 01-22-2022 10:36-0500 SaO2% (BldA) [Mass fraction] 97 % Evelyn Mirtha [employer]ATE [employer]ER[employer]AG[employer] DEPARTMENT SUPERVISOR Work Phone: [facility] 01-22-2022 10:36-0500 Systolic blood pressure 136 mm[Hg] Evelyn Mirtha [employer]PORATE [employer]ER[employer]AG[employer] DEPARTMENT SUPERVISOR Work Phone: [facility] 10-17-2021 08:11-0400 Body height 190.5 cm Jamee Olimpiar [employer]PORATE [employer]ER[employer]AGING DEPARTMENT SUPERVISOR Work Phone: [facility] 10-17-2021 08:11-0400 Body weight 191.42 kg Jamee Nguyen [employer]ATE [employer]ER[employer]AG[employer] DEPARTMENT SUPERVISOR Work Phone: [facility] 07-09-2021 10:11-0400 Body height 190.[address] [facility] 07-09-2021 10:11-0400 Body weight 187.[address] [facility] 05-09-2021 11:45-0400 Body temperature 97.3 [degF] Sri Robbins PA-C Work Phone: [facility] 05-09-2021 11:45-0400 Body weight 190.51 kg Sri Melquiadesy PA-C Work Phone: [facility] 05-09-2021 11:45-0400 Diastolic blood pressure 72 mm[Hg] Sri Arnetty PA-C Work Phone: [facility] 05-09-2021 11:45-0400 Heart rate 94 /min Sri Arnetty PA-C Work Phone: [facility] 05-09-2021 11:45-0400 Respiratory rate 16 /min Sri Arnetty PA-C Work Phone: [facility] 05-09-2021 11:45-0400 SaO2% (BldA) [Mass fraction] 96 % Sri Robbins PA-C Work Phone: [facility] 05-09-2021 11:45-0400 Systolic blood pressure 128 mm[Hg] Sri Arnetty PA-C Work Phone: [facility] Encounters Encounter Date Encounter Type Care Provider Facility Start: 02-01-2023 End: 02-01-2023 ambulatory OPALMILLER BRAR Facility:[facility] Start: 02-01-2023 End: 02-01-2023 Patient encounter procedure Javier Reed MD Work Phone: [facility] Procedures Date Procedure Procedure Detail Performing Clinician Start: 05-09-2021 Radiologic examinati on femur minimum 2 views Sri Robbins PA-C Work Phone: Plan of Treatment Date Care Activity Detail Author Start: 10-18-2022 Influenza vaccination Influenza Vaccine (#1) [facility] Start: 02-17-2022 Depression Assessment Depression Assessment [facility] Start: 10-18-2021 Influenza vaccination [facility] Start: 02-17-2021 DEPRESSION ASSESSMENT DEPRESSION ASSESSMENT [facility] Start: 10-18-2020 Influenza vaccination INFLUENZA (#1) [facility] Start: 08-04-2020 COLOGUARD (FIT-DNA) COLOGUARD (FIT-DNA) [facility] Start: 08-04-2020 Colonoscopy COLONOSCOPY [facility] Start: 08-04-2020 COLORECTAL CANCER SCREENING COLORECTAL CANCER SCREENING [facility] Start: 08-04-[address] COLONOGRAPHY [facility] Start: 08-04-2020 DIABETES SCREEN DIABETES SCREEN [facility] Start: 08-04-2020 Diabetes Screening Diabetes Screening [facility] Start: 08-04-2020 FECAL OCCULT BLOOD FECAL OCCULT BLOOD [facility] Start: 08-04-2020 Screening for malignant neoplasm of colon [facility] Start: 08-04-2020 SIGMOIDOSCOPY SIGMOIDOSCOPY [facility] Start: 08-04-2010 Lipid panel Lipid Screening [facility] Start: 08-04-2010 LIPID SCREEN LIPID SCREEN [facility] Start: 08-04-1994 Urine microalbumin profile [facility] Start: 08-04-1993 HEPATITIS C SCREENING HEPATITIS C SCREENING [facility] Start: 08-04-1993 Hepatitis C screening Hepatitis C Screening [facility] Start: 08-04-1993 HIV SCREENING HIV SCREENING [facility] Start: 08-04-1993 HIV screening HIV Screening [facility] Start: 1987 Adult depression screening assessment DEPRESSION SCREENING [facility] Start: 08-04-1980 COVID-19 VACCINE (#1) COVID-19 VACCINE (#1) [facility] Start: 08-04-1980 COVID-19 VACCINE (1) COVID-19 VACCINE (1) [facility] Start: 02-04-1976 COVID-19 VACCINE (#1) COVID-19 VACCINE (#1) [facility] Start: 1975 HEPATITIS B (1 of 3 - 3-dose series) HEPATITIS B (1 of 3 - 3-dose series) [facility] Start: 1975 Hepatitis B Vaccine (1 of 3 - 3-dose series) Hepatitis B Vaccine (1 of 3 - 3-dose series) [facility] PT PLAN OF CARE CERTIFICATION PT PLAN OF CARE CERTIFICATION Procedures Routine Hamstring strain, right, subsequent encounter Ordered: 05/23/2021 [facility] Work Phone: Payers Date Payer Category Payer Unknown [id number] 2022 Unknown [employer] [id number] 2022-Present [phone] [address] [place] [address] O [id number] 2021 Medicaid [employer] [employer] [employer] [id number] 2021-Present [phone] [address] [place] [address] Medicaid [id number] 2021 Medicaid [place] [employer] [employer] [id number] 2021-Present [phone] [address] [place] [address] Medicaid [id number] 1975 Unknown [id number] 1975 Unknown [id number] Unknown [id number] Social History Date Type Detail Facility Start: 02-01-2019 End: 10-11-2021 Tobacco smoking status NHIS Ex-smoker [facility] Work Phone: End: 02-02-2004 History of tobacco use Current smoker [facility] Work Phone: Start: 02-01-2019 End: 01-26-2020 Cigarettes smoked current (pack per day) - Reported 1 [facility] Start: 02-01-2019 Tobacco use and exposure User of smokeless tobacco [facility] Work Phone: History of tobacco use Chews Tobacco [facility] Work Phone: Start: 05-09-2021 End: 02-01-2023 Alcohol intake Current drinker of alcohol (finding) [facility] Start: 1975 Sex Assigned At Male C [facility] Start: 04-29-2021 End: 10-17-2021 Exposure to SARS-CoV-2 (event) Not sure [facility] Start: 02-01-2019 End: 10-11-2021 Tobacco use and exposure Former smokeless tobacco user [facility] Work Phone: End: 02-02-2004 History of tobacco use Cigarette Smoker [facility] Tobacco smoking status No Smokin g Status Entered [facility] Start: 01-26-2020 End: 02-01-2023 Tobacco use panel [facility] National Score (1-10 0), lower number is lower risk Not on file [facility] Start: 02-26-2021 Gender identity Identifies as male gender (finding) [facility] Functional Status Date Assessment Result Facility 09-21-2022 Functional Status Independent [facility] Mental Status Date Assessment Result Facility 09-21-2022 Mental Status Orientation Oriented x 4 [facility] Clinical Notes 05-09-2021 to 02-01-2023 Javier Reed MD - 02/01/2023 3:20 PM ESTPatient InstructionsEvelyn Shannon APRN.[facility] - 01/22/2022 10:49 AM Oneyda Nguyen APRN.[facility] - 10/17/2021 8:17 AM EDTPatient Instructions Note Date & Type Note Facility 02-01-2023 Note HNO ID: [id number] Author: Javier Reed MD Service: ? Author Type: Physician Type: Progress Notes Filed: 02/01/2023 3:36 PM Note Text: Patient presents with: Infection: 2nd toe on left food HPI: Skin Lesion: Location: started in the left 2nd toe, worst where it meets the foot, but painful and swollen up to the calf Duration: few days Pruritis/Pain: painful Feels general malaise. MEDICATIONS: alfuzosin SR (UROXATRAL) 10 mg 24 hr tablet Take 10 mg by mouth once daily. ALLERGIES: ALLERGIES No Known Allergies VITALS: BP 126/84 Pulse 97 Temp 36.7 ?C (98.1 ?F) Resp 16 Wt (!) 176.4 kg (389 lb) SpO2 98% BMI 48.62 kg/m? PE: Pleasant, in no acute distress. Accompanied by his . Red carson at the tip of the left 2nd toe. 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 Erythema and swelling of the mid lower leg, ankle, and foot. ASSESSMENT/PLAN: 1. Cellulitis of left foot - ICD9: 682.7, ICD10: L03.116 Advised ER evaluation and treatment for progressive infection with progressive signs and systemic symptoms. He will go to [facility]. Report sent by ER [email or web address]. Javier Reed MD [facility] 02-01-2023 History of Presen t illness Narrative Patient presents with: Infection: 2nd toe on left food HPI: Skin Lesion: Location: started in the left 2nd toe, worst where it meets the foot, but painful and swollen up to the calf Duration: few days Pruritis/Pain: painful Feels general malaise. MEDICATIONS: alfuzosin SR (UROXATRAL) 10 mg 24 hr tablet Take 10 mg by mouth once daily. ALLERGIES: ALLERGIES No Known Allergies VITALS: BP 126/84 Pulse 97 Temp 36.7 C (98.1 F) Resp 16 Wt (!) 176.4 kg (389 lb) SpO2 98% BMI 48.62 kg/m PE: Pleasant, in no acute distress. Accompanied by his . Red carson at the tip of the left 2nd toe. 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 Erythema and swelling of the mid lower leg, ankle, and foot. ASSESSMENT/PLAN: 1. Cellulitis of left foot - ICD9: 682.7, ICD10: L03.116 Advised ER evaluation and treatment for progressive infection with progressive signs and systemic symptoms. He will go to [facility]. Report sent by ER [facility]. Javier Reed MD documented in this encounter [facility] 09-21-2022 Hospital Discharg e instructions Patient Education 09/21/2022 19:57:40 Abscess, Incision And Drainage Abscess (Incision & Drainage) An abscess is sometimes called a boil. It happens when bacteria get trapped under the skin and start to grow. Pus forms inside the abscess as the body responds to the bacteria. An abscess can happen with an insect bite, ingrown hair, blocked oil gland, pimple, cyst, or puncture wound. Your healthcare provider has drained the pus from your abscess. If the abscess pocket was large, your healthcare provider may have put in gauze packing. Your provider will need to remove it on your next visit. He or she may also replace it at that time. You may not need antibiotics to treat a simple abscess, unless the infection is spreading into the skin around the wound (cellulitis). The wound will take about 1 to 2 weeks to heal, depending on the size of the abscess. Healthy tissue will grow from the bottom and sides of the opening until it seals over. Home care These tips can help your wound heal: The wound may drain for the first 2 days. Cover the wound with a clean dry dressing. Change the dressing if it becomes soaked with blood or pus. If a gauze packing was placed inside the abscess pocket, you may be told to remove it yourself. You may do this in the shower. Once the packing is removed, you should wash the area in the shower, or clean the area as directed by your provider. Continue to do this until the skin opening has closed. Make sure you wash your hands after changing the packing or cleaning the wound. If you were prescribed antibiotics, take them as directed until they are all gone. You may use acetaminophen or ibuprofen to control pain, unless another pain medicine was prescribed. If you have liver disease or ever had a stomach ulcer, talk with your doctor before using these medicines. Follow-up care Follow up with your healthcare provider, or as advised. If a gauze packing was put in your wound, it should be removed in 1 to 2 days. Check your wound every day for any signs that the infection is getting worse. The signs are listed below. When to seek medical advice Call your healthcare provider right away if any of these occur: Increasing redness or swelling Red streaks in the skin leading away from the wound Increasing local pain or swelling Continued pus draining from the wound 2 days after treatment Fever of 100.4 F (38 C) or higher, or as directed by your healthcare provider Boil returns when you are at home [id number] [employer]. [address] [place] [address], [place] [address]. All rights reserved. This information is not intended as a substitute for professional medical care. Always follow your healthcare professional's instructions. Follow Up Care 09/21/2022 17:28:55 With:LIZY SWAIN MD, [facility] Address: [address] [place] [phone] [phone] When:2-4 days Comments:Schedule appointment as soon as possible With:LICHA BRAR MD Address: [facility] [place] [address] [phone] When:2-4 days [facility] 09-21-2022 Note Discharge Instructions Thank you for allowing [facility] to assist you with your healthcare needs. The following is important discharge information regarding your hospital visit. Diagnosis from Today's Visit Cyst What to Do Next Instructions from Your Care Team Take all of your antibiotic. For worsening signs of infection. No qualifying data available. Post Acute Orders No qualifying data available. You Need to Schedule the Following Appointments Follow Up with LIZY SWAIN MD, [facility] When Within 2-4 days Why: Schedule appointment as soon as possible Where: [address] [place] [phone] Follow Up with LICHA BRAR MD When Within 2-4 days Where: [address] [place] [address] [place] [address]- [phone] Allergies NKA Medications Please ask your primary doctor or pharmacist before taking any other medication not listed, including over the counter drugs, herbal medications, vitamins and or supplements as they may interact with your home medications. What How Much When Instructions Last Dose New amoxicillin-clavulanate (amoxicillin-clavulanate 875 mg-125 mg oral tablet) 1 tab(s) by mouth Every 12 hours Duration: 10 Days Printed Prescription Please take this list to your next doctor s visit. Bring all medications you take, including over the counter medications, herbals and other supplements with you to your doctor s visit. Patients and families are reminded to discard old lists and to update any records with all medication providers or retail pharmacies. Medication Leaflets amoxicillin and clavulanate potassium (am OK i CARLOS in KLAV ue SERGE ate keri TAS ee um) Augmentin What is the most important information I should know about amoxicillin and clavulanate potassium? You should not use this medicine if you have severe kidney disease, if you have had liver problems or jaundice while taking amoxicillin and clavulanate potassium, or if you are allergic to any penicillin or cephalosporin antibiotic, such as Amoxil, Ceftin, Cefzil, Moxatag, Omnicef, and others. What is amoxicillin and clavulanate potassium? Amoxicillin is a penicillin antibiotic. Clavulanate potassium helps prevent certain bacteria from becoming resistant to amoxicillin. Amoxicillin and clavulanate potassium is a combination medicine used to treat many different infections caused by bacteria, such as sinusitis, pneumonia, ear infections, bronchitis, urinary tract infections, and infections of the skin. Amoxicillin and clavulanate potassium may also be used for purposes not listed in this medication guide. What should I discuss with my healthcare provider before taking amoxicillin and clavulanate potassium? You should not use this medicine if you are allergic to it, or if: you have severe kidney disease (or if you are on dialysis); you have had liver problems or jaundice while taking amoxicillin and clavulanate potassium; or you are allergic to any penicillin or cephalosporin antibiotic, such as Amoxil, Ceftin, Cefzil, Moxatag, Omnicef, and others. Tell your doctor if you have ever had: liver disease (hepatitis or jaundice); kidney disease; or mononucleosis. The liquid or chewable tablet may contain phenylalanine. Tell your doctor if you have phenylketonuria (PKU). Tell your doctor if you are or . Amoxicillin and clavulanate potassium can make control pills less effective. Ask your doctor about using a non-hormonal control (condom, diaphragm, cervical cap, or contraceptive sponge) to prevent . Do not give this medicine to a child without medical advice. How should I take amoxicillin and clavulanate potassium? Follow all directions on your prescription label and read all medication guides or instruction sheets. Use the medicine exactly as directed. Amoxicillin and clavulanate potassium may work best if you take it at the start of a meal. Take the medicine every 12 hours. Do not crush or chew the extended-release tablet. Swallow the pill whole, or break the pill in half and take both halves one at a time. Tell your doctor if you have trouble swallowing a whole or half pill. You must chew the chewable tablet before you swallow it. Shake the oral suspension (liquid) before you measure a dose. Use the dosing syringe provided, or use a medicine dose-measuring device (not a kitchen spoon). This medicine can affect the results of certain medical tests. Tell any doctor who treats you that you are using amoxicillin and clavulanate potassium. Use this medicine for the full prescribed length of time, even if your symptoms quickly improve. Skipping doses can increase your risk of infection that is resistant to medication. Amoxicillin and clavulanate potassium will not treat a viral infection such as the flu or a common cold. Store the tablets at room temperature away from moisture and heat. Store the liquid in the refrigerator. Throw away any unused liquid after 10 days. What happens if I miss a dose? Take the medicine as soon as you can, but skip the missed dose if it is almost time for your next dose. Do not take two doses at one time. What happens if I overdose? Seek emergency medical attention or call the Poison Help line at . Overdose can cause nausea, vomiting, stomach pain, diarrhea, skin rash, drowsiness, hyperactivity, and decreased urination. What should I avoid while taking amoxicillin and clavulanate potassium? Avoid taking this medicine together with or just after eating a high-fat meal. This will make it harder for your body to absorb the medication. Antibiotic medicines can cause diarrhea, which may be a sign of a new infection. If you have diarrhea that is watery or bloody, call your doctor before using anti-diarrhea medicine. What are the possible side effects of amoxicillin and clavulanate potassium? Get emergency medical help if you have signs of an allergic reaction (hives, difficult breathing, swelling in your face or throat) or a severe skin reaction (fever, sore throat, burning eyes, skin pain, red or purple skin rash with blistering and peeling). Stop using amoxicillin and clavulanate potassium and seek medical treatment if you have a serious drug reaction that can affect many parts of your body. Symptoms may include skin rash, fever, swollen glands, muscle aches, severe weakness, unusual bruising, or yellowing of your skin or eyes. Call your doctor at once if you have: severe stomach pain, diarrhea that is watery or bloody (even if it occurs months after your last dose); pale or yellowed skin, dark colored urine, fever, confusion or weakness; loss of appetite, upper stomach pain; little or no urination; or easy bruising or bleeding. Common side effects may include: nausea, vomiting; diarrhea; rash, itching; vaginal itching or discharge; or diaper rash. This is not a complete list of side effects and others may occur. Call your doctor for medical advice about side effects. You may report side effects to FDA at 8-936-CZQ-2089. What other drugs will affect amoxicillin and clavulanate potassium? Tell your doctor about all your other medicines, especially: allopurinol; probenecid; or a blood thinner--warfarin, Coumadin, Jantoven. This list is not complete. Other drugs may affect amoxicillin and clavulanate potassium, including prescription and hhiw-rqm-ymqnxni medicines, vitamins, and herbal products. Not all possible drug interactions are listed here. Where can I get more information? Your doctor or pharmacist can provide more information about amoxicillin and clavulanate potassium. Remember, keep this and all other medicines out of the reach of children, never share your medicines with others, and use this medication only for the indication prescribed. Every effort has been made to ensure that the information provided by [employer]') is accurate, up-to-date, and complete, but no guarantee is made to that effect. Drug information contained herein may be time sensitive. [employer] information has been compiled for use by healthcare practitioners and consumers in the [place] and therefore [employer] does not warrant that uses outside of the [place] are appropriate, unless specifically indicated otherwise. [employer] drug information does not endorse drugs, diagnose patients or recommend therapy. [employer] drug information is an informational resource designed to assist licensed healthcare practitioners in caring for their patients and/or to serve consumers viewing this service as a supplement to, and not a substitute for, the expertise, skill, knowledge and judgment of healthcare practitioners. The absence of a warning for a given drug or drug combination in no way should be construed to indicate that the drug or drug combination is safe, effective or appropriate for any given patient. [employer] does not assume any responsibility for any aspect of healthcare administered with the aid of information [employer] provides. The information contained herein is not intended to cover all possible uses, directions, precautions, warnings, drug interactions, allergic reactions, or adverse effects. If you have questions about the drugs you are taking, check with your doctor, nurse or pharmacist. Copyright 0635-2738 [employer] Version: 14.. Revision Date: 11/23/2021. Education Materials Abscess (Incision & Drainage) An abscess is sometimes called a boil. It happens when bacteria get trapped under the skin and start to grow. Pus forms inside the abscess as the body responds to the bacteria. An abscess can happen with an insect bite, ingrown hair, blocked oil gland, pimple, cyst, or puncture wound. Your healthcare provider has drained the pus from your abscess. If the abscess pocket was large, your healthcare provider may have put in gauze packing. Your provider will need to remove it on your next visit. He or she may also replace it at that time. You may not need antibiotics to treat a simple abscess, unless the infection is spreading into the skin around the wound (cellulitis). The wound will take about 1 to 2 weeks to heal, depending on the size of the abscess. Healthy tissue will grow from the bottom and sides of the opening until it seals over. Home care These tips can help your wound heal: The wound may drain for the first 2 days. Cover the wound with a clean dry dressing. Change the dressing if it becomes soaked with blood or pus. If a gauze packing was placed inside the abscess pocket, you may be told to remove it yourself. You may do this in the shower. Once the packing is removed, you should wash the area in the shower, or clean the area as directed by your provider. Continue to do this until the skin opening has closed. Make sure you wash your hands after changing the packing or cleaning the wound. If you were prescribed antibiotics, take them as directed until they are all gone. You may use acetaminophen or ibuprofen to control pain, unless another pain medicine was prescribed. If you have liver disease or ever had a stomach ulcer, talk with your doctor before using these medicines. Follow-up care Follow up with your healthcare provider, or as advised. If a gauze packing was put in your wound, it should be removed in 1 to 2 days. Check your wound every day for any signs that the infection is getting worse. The signs are listed below. When to seek medical advice Call your healthcare provider right away if any of these occur: Increasing redness or swelling Red streaks in the skin leading away from the wound Increasing local pain or swelling Continued pus draining from the wound 2 days after treatment Fever of 100.4 F (38 C) or higher, or as directed by your healthcare provider Boil returns when you are at home 8916-9809 [employer]. [address] [place] [address], [place] [address]. All rights reserved. This information is not intended as a substitute for professional medical care. Always follow your healthcare professional's instructions. Additional Information VACCINATE! IT SAVES LIVES! Members of the community who have not yet received the COVID-19 vaccine and would like to receive it can visit one of [facility] vaccine clinics. There are many vaccine clinic locations within the [facility]. For locations and available times, please visit [email or web address] It is important to note that some COVID mobile vaccine clinics are held outdoors and may be canceled in rainy or stormy conditions. To learn more about pediatric vaccinations (ages 5-11), we invite you to visit the [facility] webpage. [email or web address] To learn more about the COVID-19 vaccine, we invite you to visit the CDC website for a list of frequently asked questions. https://www.cdc.gov/coronavirus/ 2019-ncov/vaccines/faq.html [facility] Patient Portal Access Instructions: Stay connected with your healthcare team and access your personal medical information anytime with the [facility] Patient Portal. If you would like a full copy of your medical records please contact the [facility] Medical Records Department Friday through Friday between 8a.m. and 4:30p.m. Please follow the directions below to access the portal: 1.Access the email account you provided upon registration to the hospital.2.Look for an invitation email from [facility].3.Open the email and access the invitation link: Accept Invitation to [facility]4.Fill in the required douglas to create your account. Sign into [email or web address] with your username and password that you created in the above steps to stay up to date. You can then view a summary of results, a summary of your visits, and the ability to download your summaries to your computer or send the information securely to a physician. Remember that your healthcare information is confidential, so carefully consider who you will allow to register on the [facility] Patient Portal for access to your information. You can also access the [facility] Patient Portal on the [facility] bel. Simply click on Health Records under Health Data and then click on the [employer] logo. HOW TO SAFELY DISPOSE OF PRESCRIPTION MEDICATIONS Please use one of the following methods to safely dispose of your unused medications. 1.Use a drug disposal kit: the drug disposal pouch allows you to safely discard your old and unused drugs. Ask your nurse to give you one when you are discharged.2.Visit a local take-back location: Many local pharmacies and police departments have programs that collect old and unwanted prescription drugs. Call your local pharmacy or go to [email or web address] [email or web address] to find one close to you.3.Make use of household items: Use cat litter or old coffee grounds to dispose medications if other options are not available. Mix your drugs with these household products, seal them in an airtight container and throw it into the garbage. Call [facility]: [phone] to be sure your drugs can be disposed of in this way. Some medicines may require a different approach.4.Never flush your medications down the toilet. IF YOU HAVE BEEN PRESCRIBED AN OPIOIDS FOR PAIN If you have been prescribed an opioid (such as hydrocodone, oxycodone or morphine), it is critical to understand the possible side effects and risks of opioid pain medications. Even when taken as directed, opioids can have several side effects including: Tolerance, meaning you might need to take more of a medication for the same pain relief. Nausea, vomiting and/or constipation. Sleepiness, dizziness, dry mouth, confusion, depression or itching. Physical dependence, meaning you have withdrawal symptoms when a medication is stopped ? this can develop within a few days. KNOW YOUR RESPONSIBILITIES It is important to know exactly how much and how often to take the opioid pain medications you are prescribed. Never take opioids in higher amounts or more often than prescribed. Do not combine opioids with alcohol or other drugs that cause drowsiness, such as benzodiazepines, also known as benzos, including diazepam and alprazolam, muscle relaxants or sleep aids. Never sell or share prescription opioids. This is illegal. Store opioids in a secure place and out of reach of others (including children, family, friends and visitors). The last page(s) of this document has been signed and retained as a CHART COPY Signatures Patient Education Materials Abscess, Incision And Drainage Medication Leaflets amoxicillin and clavulanate potassium My discharge plan and instructions have been reviewed and explained to me and I,HOMER CHINO understand my current condition and have read and understand these discharge instructions. I have received a written copy of the plan/instructions. If I have questions, I am aware that I should contact my doctor. Patient/Behavior Support Specialist Signature: Date/Time: Relationship to Patient: Witness Name/Signature: Date/Time: [facility] 01-22-2022 Instructions Evelyn Shannon APRN.TINY - 01/22/2022 11:05 AM EST -Increase fluid intake. --Rest as much as possible. - Nasal saline spray, nadine pot, flonase Take the entire course of antibiotics as prescribed. DO NOT stop taking it early, even if you are feeling better. -Monitor for signs of worsening infection: increased temperature, pain in face, ear pain or headaches or increase in nasal congestion/mucous that is not improving. -Educated patient on side effects of medication. Tessalon Perles 1-2 every 8 hours, do not combine this with robitussin or delsym * Prednisone 40 mg (2 tablets) per day for 3 days, take in morning or early in day * Do not NSAIDs during this 5 day course (ibuprofen, naproxen, Motrin, Aleve, Advil) Tylenol only during prednisone use * Follow up with primary care provider if no improvement with treatment * Seek medical care immediately, call 911, go to ER if you have chest pain, difficulty breathing, shortness of breath, inability to swallow. documented in this encounter [facility] 01-22-2022 History of Presen t illness Narrative Subjective The history is provided by the patient. No senior director of global commercial technology solutions was used. HPI Homer Chino is a 46 year old male who presents today for CC of cough and sore throat that stared at thanksgiving. He has used multiple otc without relief. He is also having mild sinus pressure and congestion, post nasal drainage BP 136/74 Pulse 102 Temp 36.6 C (97.8 F) Resp 16 Wt (!) 191 kg (421 lb) SpO2 97% BMI 52.62 kg/m Social History Tobacco Use Smoking status: Former Packs/day: 1.00 Years: 10.00 Pack years: 10.00 Types: Cigarettes Quit date: 02/02/2004 Years since quittin.9 Smokeless tobacco: Former Types: Chew Vaping Use Vaping Use: Never used Substance Use Topics Alcohol use: Yes PAST MEDICAL HISTORY Diagnosis Date Morbid obesity (HCC) Prediabetes I have confirmed and edited as necessary, the [facility] Review of Systems Constitutional: Negative for chills, fever and malaise/fatigue. HENT: Positive for congestion, sinus pain and sore throat. Negative for ear pain. Respiratory: Positive for cough. Negative for sputum production, shortness of breath and wheezing. Cardiovascular: Negative for chest pain. Gastrointestinal: Negative for abdominal pain, diarrhea, nausea and vomiting. Musculoskeletal: Negative for myalgias. Neurological: Positive for headaches. Objective Physical Exam Vitals and nursing note reviewed. Constitutional: Appearance: He is not toxic-appearing. HENT: Head: Normocephalic and atraumatic. Right Ear: Tympanic membrane, ear canal and external ear normal. Left Ear: Tympanic membrane, ear canal and external ear normal. Nose: Mucosal edema, congestion and rhinorrhea present. Right Sinus: Maxillary sinus tenderness and frontal sinus tenderness present. Left Sinus: Maxillary sinus tenderness and frontal sinus tenderness present. Comments: Thick Cloudy Post Nasal Drainage Mouth/Throat: Pharynx: Uvula midline. No oropharyngeal exudate or posterior oropharyngeal erythema. Tonsils: No tonsillar abscesses. Cardiovascular: Rate and Rhythm: Normal rate and regular rhythm. Heart sounds: Normal heart sounds. Pulmonary: Effort: Pulmonary effort is normal. Breath sounds: Normal breath sounds. No decreased breath sounds, wheezing, rhonchi or rales. Lymphadenopathy: Head: Right side of head: No submental, submandibular, tonsillar or preauricular adenopathy. Left side of head: No submental, submandibular, tonsillar or preauricular adenopathy. Cervical: No cervical adenopathy. Right cervical: No superficial cervical adenopathy. Left cervical: No superficial cervical adenopathy. Neurological: Mental Status: He is alert. ASSESSMENT/PLAN: 1. Acute non-recurrent pansinusitis - ICD9: 461.8, ICD10: J01.40 (primary diagnosis) - Will begin treatment with Augmentin 875 mg PO BID for 5 days - Supportive care with plenty of fluids, rest, and analgesia prn. - Follow up in one week if symptoms persist or worsen. 2. Acute cough - ICD9: 786.2, ICD10: R05.1 Prednisone 40 mg (2-20mg tablets) po QD for 3 days Tessalon Perles 1-2 every 8 hours, do not combine this with robitussin or delsym Diagnosis and treatment plan were discussed and questions were answered to the patient's satisfaction. Pt acknowledged understanding of concepts and follow up plan. Specific signs and symptoms that would indicate the need for higher level of care were discussed in detail warranting prompt ER evaluation. Evelyn Shannon APRN.TINY documented in this encounter [facility] 10-17-2021 History of Presen t illness Narrative Homer Chino is a 46 year old male who presents today for evaluation of Patient presents with: Consult: Lump on scrotum CHIEF COMPLAINT & HISTORY OF PRESENT ILLNESS CC: scrotal lump 46 year old male presents with his spouse for complaints of a pea size lump on his scrotum that increased in size, onset 8 days ago, he was seen in urgent care and started on doxycycline for days. He noticed an improvement over the last few days. Small amount of clear blood tinged drainage. He reports feels more tired and has some diarrhea. Denies fever, chills, change in urinary pattern. 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 HPI: 1-Duration: 8 days 2-Location:scrotum 3-Severity:10 4-Quality:burn 5-Context: only with touch 6-Timing: intermittent 7-Modifying factors:antibiotics, tylenol, ibuprofen 8-Associated signs & symptoms: none Past Urological History: Stones:no Surgery:no Tumors:no Infections:yes: current scrotal Family History of prostate Ca:no VITALS: Height 190.5 cm (6' 3 ), weight (!) 191.4 kg (422 lb). ALLERGIES: Patient has no known allergies. MEDICATIONS: Current Outpatient Medications Medication Sig Dispense Refill doxycycline monohydrate 100 mg tablet Take 1 tablet by mouth twice daily for 10 days. 20 tablet 0 metFORMIN (GLUCOPHAGE) 500 mg tablet Take 1 tablet by mouth twice daily with meals. (Patient not taking: Reported on 10/11/2021) 60 tablet 2 No current facility-administered medications for this visit. SOCIAL HISTORY: Social History Tobacco Use Smoking status: Former Packs/day: 1.00 Years: 10.00 Pack years: 10.00 Types: Cigarettes Quit date: 02/02/2004 Years since quittin.7 Smokeless tobacco: Former Types: Chew Vaping Use Vaping Use: Never used Substance Use Topics Alcohol use: Yes PAST MEDICAL HISTORY: PAST MEDICAL HISTORY Diagnosis Date Morbid obesity (HCC) Prediabetes PAST SURGICAL HISTORY: PAST SURGICAL HISTORY Procedure Laterality Date PAST SURGICAL HISTORY OF Bilateral foot recontruction FAMILY HISTORY: History reviewed. No pertinent family history. All histories reviewed on this date 10/17/2021: Yes REVIEW OF SYSTEMS: CONSTITUTIONAL: Patient reports no recent fever or weight loss EYES: Negative for redness, blurry vision, double vision or loss of vision EAR, NOSE AND THROAT: DENIES HAVING: Dysphagia CARDIOVASCULAR: Negative for chest pain. RESPIRATORY: Negative for cough, hemoptysis, wheezing, COPD, dyspnea or shortness of breath GI: mild diarrhea MUSCULOSKELETAL: denies back pain or muscular weakness SKIN: See HPI PSYCH: Negative for sleep disturbance, mood disorder and recent psychosocial stressors. HEMATOLOGY/LYMPHOLOGY Negative for prolonged bleeding, bruising easily or swollen nodes ENDOCRINE: Negative for cold or heat intolerance, polyuria, polydipsia and goiter All other systems reviewed and are negative other than HPI. RADIOLOGY REPORTS REVIEWED: N/A LAB RESULTS REVIEWED: Yes IMAGING STUDIES INDEPENDENTLY REVIEWED: N/A OLD RECORDS REVIEWED: Yes: Extensive: No PHYSICAL EXAM: constitutional: appears healthy in no acute distress, obese cardiovascular: normal femoral pulses to palpate respiratory: normal respiratory motion gi: abdomen soft, non-tender without masses, hernia or organomegaly gu: scrotum: no swelling, pea sized area on base of scrotum that is healing well, no erythema, no drainage, no induration epididymis: Normal urethral meatus: Normal penis: no lesions or deformities., absence of foreskin testes: normal size and symmetry, no masses genitial skin: see scrotal exam Neuro: Gait normal. Sensation grossly intact. ASSESSMENT/PLAN: ASSESSMENT/PLAN: 1. Scrotal abscess - ICD9: 608.4, ICD10: N49.2 -resolving -keep area clean and dry, patient is very large and encouraged strict hygiene -ok to apply a moist warm compress -complete course of doxycycline -contact our office if symptoms persist Jamee Nguyen APRN.CNP Patient is instructed to schedule a follow up as needed. documented in this encounter [facility] 07-09-[address] - 07/09/2021 10:33 AM EDT 1. No skipped meals, have breakfast 2. Include protein and fiber in each meal (Lean protein: chicken, turkey, fish) 3. Follow the Plate Method at lunch and dinner: Use a 9 plate - 1/2 plate vegetables-non starchy such as green beans, greens, broccoli, cauliflower, etc (1 serving of fruit optional outside of plate) - 1/4 plate lean protein-primarily chicken, turkey fish, lean red 1-2 x per week at most (size of palm) - 1/4 plate whole grain or starchy vegetable such as corn, peas, potatoes, beans (size of fist, 1 cup) 4. All meals and snacks at the dinner table; minimize distractions, no TV while eating. Make meals last at least 20 min, chew each bite of food 20 x per bite.Portion out all foods, never eat out of container. Become more mindful of meal: Enjoy flavors, textures etc. Use hunger/fullness scale. 5. Add regular exercise, aim for 20 min cardio most days to start. Work on core and back exercises [email or web address] documented in this encounter [facility] 07-09-2021 History of Presen t illness Narrative Nutrition Therapy Initial Assessment Nutrition Diagnosis: Overweight/obesity, related to, excess energy intake and physical inactivity, as evidenced by BMI above normative standard for age and gender. RECOMMENDED MALNUTRITION DIAGNOSIS: NO MALNUTRITION IDENTIFIED NUTRITION CARE PLAN Nutrition Intervention 07/09/2021: modify type and amount of food or beverage 1. No skipped meals, have breakfast 2. Include protein and fiber in each meal (Lean protein: chicken, turkey, fish) 3. Follow the Plate Method at lunch and dinner: Use a 9 plate - 1/2 plate vegetables-non starchy such as green beans, greens, broccoli, cauliflower, etc (1 serving of fruit optional outside of plate) - 1/4 plate lean protein-primarily chicken, turkey fish, lean red 1-2 x per week at most (size of palm) - 1/4 plate whole grain or starchy vegetable such as corn, peas, potatoes, beans (size of fist, 1 cup) 4. All meals and snacks at the dinner table; minimize distractions, no TV while eating. Make meals last at least 20 min, chew each bite of food 20 x per bite.Portion out all foods, never eat out of container. Become more mindful of meal: Enjoy flavors, textures etc. Use hunger/fullness scale. 5. Add regular exercise, aim for 20 min cardio most days to start. Work on core and back exercises [email or web address] Monitoring & Evaluation: 1-2 pound weightloss per week Need for Follow up: 1 month Patient presents for initial MNT as relates to prediabetes and for weight loss. States long history of weight disorder. Not sleeping well . Has tried ideal protein diet losing 80 lbs; tried restricting .Feels unhealthy relationship with food, tends to stress eat., eat to overfull. Intake noted for skipped meals, usually skips breakfast, tends to eat larger portions. Currently following lower carb eating. Beverages appropriate. No regular exercise and limited activity during the day . Activity limited by back pain. 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 4 eggs and large portion trail bologne; fast food when working Snack - not usually Dinner - 6 p.m. spaghetti, chicken, casserole. Large portion. Water, occ diet soda; fast food when working Snack - occ. May have popcorn Beverages - water, diet soda, coffee black Alcohol- occ Vitamins/Supplements - no Activity: Activities of Daily Living: Active 50% of the day. 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 Resting Metabolic Rate: 2846 Malnutrition Screening Significant unintentional weight loss? No Eating less than 75% of usual intake for more than 2 weeks? No Potential Signs of Inflammation: no identifiable sources Education Materials Provided: Plate method placemat, sample meal plans READINESS TO LEARN Cognitive ability: Alert and oriented Motivation to learn: Interested Family support: Unable to assess - Family not present Instruction provided to: Patient Patient learns best by: Individual Instruction Factors affecting learning: None Physical limitations affecting learning: None Referred/Supervised by: Luis/Sandy GALLEGOS Billing Type: Initial Assess/15 min 2 units SIGNATURE: Shanice Damian RD PATIENT NAME: Homer Chino DATE: July 09, 2021 TIME: 10:11 AM documented in this encounter [facility] 06-15-2021 History of Presen t illness Narrative Episode Visit Count: 4 Therapist That Will Oversee The Plan Of Care: Telly Salcedo Start of Care Date: 05/23/21 Onset Date: 04/25/21 Plan of Care Certification Date: 05/23/21 Next Certification Due Date: 07/23/21 REHABILITATION AND SPORTS THERAPY PHYSICAL THERAPY PROGRESS REPORT PLAN OF CARE UPDATE: Assessment: Homer Chino demonstrates significant improvement in rising from a chair, standing and walking . He hasprogressed toward goals. 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 Current prognosis is Good due to: current objective clinical presentation;good overall health status;positive past response to therapy;within-session changes;good support system/ coping skills . He will benefit from continued skilled therapy services to meet the updated goals for this plan of care as noted below. Goals updated on 06/15/2021. Goals for Episode of Care: created on 05/23/21 through 08/01/21 [place] in home exercise program. Partially met Patient will demonstrate increase in Rt. LE strength to 5/5 during manual muscle testing in order to improve function for basic self-care tasks, home management tasks, leisure / recreation skills and work tasks. Patient will decrease pain rating by 2 points to meet minimal clinical important difference for numeric pain rating scale. Progressing towards Patient will increase flexibility of the Right Hamstring to equal unaffected extremity/side to improve gait mechanics and decrease pain. Progressing towards Normalize gait with active and passive hamstring lengthening without pain. Progressing towards Reciprocal stair negotiation. Progressing towards Patient Goals: Pain free. Getting back to work and ADL's without pain. Planned Interventions, Frequency, and Duration: 1x/month, 4 weeks Total Number of Visits Planned: 1 Patient to be seen for Therapeutic exercise (02697);Neuromuscular re-education (05835);Manual therapy (96603);Therapeutic activities (36687);Self-chcf management (44302);Gait Training (09997);Patient/Family/Caregiver Education;Body Mechanics Training PLAN FOR NEXT VISIT: AL SUBJECTIVE: Patient Reason for Visit: Pt doing much better this morning, the best I have felt in awhile. Notes some slight stiffness but no pain and the sensation of weakness continues to improve as well. He is doing well enough that he wishes to continue exercises and self manual on his own and check back in a month or so. 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 5 points is clinically meaningfully difference Percentiles provide an indication of how the patient's score ranks in relation to the general population. Higher percentile rankings indicate better function/quality of life. 50th percentile is the average of the general population and indicates half of respondents had a worse score. Lower is Better 05/23/2021 Fatigue - Score 53 (within normal limits) Fatigue - Percentile 38 % T-scores: mean of general population = 50. 5 points is clinically meaningfully difference Percentiles provide an indication of how the patient's score ranks in relation to the general population. Higher percentile rankings indicate better function/quality of life. 50th percentile is the average of the general population and indicates half of respondents had a worse score. OBJECTIVE MEASURES WITH LEVEL OF FUNCTION: LE Strength R Hip Extension: 4+/5 R Hip Flexion (L2): 5/5 R Hip ABduction: 4+/5 R Hip External Rotation: 4+/5 R Knee Extension (L3): 4+/5 R Knee Flexion: 4+/5 TREATMENT: Manual Therapy: 1: IASTM, STM, and TrPr with active release to R biceps femoris with push to tolerance until symptoms resolve. Skilled Intervention: Manual skills to improve joint mobility, ROM, and decrease pain. Utilized anatomy knowledge of the therapist, and assessment of patient's response to intervention. Self-Usp Management: 1: Discussed self STM at home, continuing exercises as part of his HEP as prescribed, and also discussed progressions Skilled Intervention: Skilled judgment in the selection of proper modification for activity of daily living/home management based on clinical presentation, deficits, and needs. Educated the patient regarding recommendations and provided written instruction to facilitate compliance. Reviewed patient specific diagnosis in relation to activities of daily living/home management. Activity progression based on professional judgement. Billing Manual TherapyTreatment Minutes: 15 Self-Care/Home Management Treatment Minutes: 10 Total Treatment Time Minutes (timed/untimed): 25 Telly Salcedo PT documented in this encounter [facility] 06-13-2021 History of Presen t illness Narrative Episode Visit Count: 3 Therapist That Will Oversee The Plan Of Care: Telly Salcedo Start of Care Date: 05/23/21 Onset Date: 04/25/21 Plan of Care Certification Date: 05/23/21 Next Certification Due Date: 07/23/21 REHABILITATION AND SPORTS THERAPY PHYSICAL THERAPY TREATMENT NOTE ASSESSMENT: Homer Chino tolerated the session with decreased pain, expected muscle soreness and no issues. He demonstrated difficulty with concentric hamstring use. The patient will continue to benefit from ongoing skilled physical therapy to progress toward set goals. PLAN FOR NEXT VISIT: AL SUBJECTIVE: Patient Reason for Visit: Pt. reports swing phase of gait due to knee flexion bothering him most. Over the last week, the R LE has felt less stable when initially standing or putting weight on it. Symptoms are localized to the distal biceps femoris. Reports no adherance to HEP this past week. Pain: Pain Pain Level: 3 Pain Location: Knee - Right;Other: See Comment (Hamstring) Description: Aching Frequency: With movement Post Treatment Pain Post Treatment Pain Location: Knee - Right Post Treatment Symptoms: Fatigue OBJECTIVE MEASURES WITH LEVEL OF FUNCTION: Symptom relief following IASTM to the Biceps Femoris. Increased difficulty for patient with hamstring curl isotonic > hip extension isotonic. TREATMENT: Therapeutic Exercise: 1: Standing Knee Flexion Rt. w/ eccentric lowering 3 sec- 2x15 2: Izx-pc-Sfjilf off mat table: 2x10 3: Isotonic Prone Hamstring Curl 1x15 4: Seated Knee Flex Iso into physioball - 2x10 5: Isotonic Prone Hip Extension 1x15 6: Prone Knee Curls w/ Eccentric Lowering 2x15 7: Prostretch calf stretch 3x30 8: Hamstring Stretch - seated, 2x30 9: Sci-Fit x5 minutes (Subjective, Used to facilitate ROM and cardiovascular endurance.) Skilled Intervention: Patient was educated in proper exercise technique and purpose for exercises. Skilled judgment was provided in selection of appropriate interventions. Correct performance of therapeutic exercises was facilitated with verbal, visual and tactile cuing. Manual Therapy: 1: IASTM to the Bicep Femoris muscle belly and muscle-tendonis junction with tool w/ push to tolerance - 10 minutes. Skilled Intervention: Manual skills to improve joint mobility, ROM, and decrease pain. Utilized anatomy knowledge of the therapist, and assessment of patient's response to intervention. Billing Therapeutic Exercise Treatment Minutes: 35 Manual TherapyTreatment Minutes: 10 Total Treatment Time Minutes (timed/untimed): 45 MAURICE Renteria Supervising therapist was present and guided the care of the patient for the entire session on this date. All documentation was reviewed and agreed upon. Telly Salcedo PT documented in this encounter [facility] 05-31-2021 History of Presen t illness Narrative Episode Visit Count: 2 Therapist That Will Oversee The Plan Of Care: Telly Salcedo Start of Care Date: 05/23/21 Onset Date: 04/25/21 Plan of Care Certification Date: 05/23/21 Next Certification Due Date: 07/23/21 REHABILITATION AND SPORTS THERAPY PHYSICAL THERAPY TREATMENT NOTE ASSESSMENT: Homer Chino tolerated the session with fatigue, expected muscle soreness and no issues. He demonstrated difficulty with lowering during [id number]-[id number] and other concentric hamstring contractions. The patient will continue to benefit from ongoing skilled physical therapy to progress toward set goals. PLAN FOR NEXT VISIT: IASTM, STM to distal biceps femoris tendon. Continue finding tolerable interventions that strengthen the hamstring. SUBJECTIVE: Patient Reason for Visit: Pt. reports to therapy reporting of Rt. hamstring weakness with [id number] and intial walking. Reports getting in the shower and into his truck has gotten substantially better. Boot off of Lt. foot last Friday, feels like that has helped his Rt. leg issues. Not using the crutches all the time, still takes with him. Notes compliance w/ HEP. Pain: Pain Pain Level: 3 Pain Location: Knee - Right;Other: See Comment (Hamstring) Description: Aching Frequency: With movement Post Treatment Pain Post Treatment Pain Location: Knee - Right Post Treatment Symptoms: Muscle fatigue, sore. OBJECTIVE MEASURES WITH LEVEL OF FUNCTION: Slight discomfort during concentric hamstring contraction supine heel slide. Slight discomfort w/ eccentric lowering on prone knee curls > standing knee curls. TREATMENT: Therapeutic Exercise: 1: Standing Knee Flexion Rt. w/ eccentric lowering 3 sec- 2x10 2: Hnq-ne-Kewvqc off mat table: 2x10 3: Isometric hamstring heel push in - supine, 2x15 5 sec hold. 4: Seated Knee Flex Iso into physioball - 2x10 5: Double Leg Bridging - 2x10 6: Prone Knee Curls w/ Eccentric Lowering 2x15 7: Prostretch calf stretch 3x30 8: Hamstring Stretch - seated, 2x30 9: Sci-Fit x5 minutes (Completed subjective during this time. Used to facilitate ROM, cardiovascular improvements) Skilled Intervention: Patient was educated in proper exercise technique and purpose for exercises. Skilled judgment was provided in selection of appropriate interventions. Correct performance of therapeutic exercises was facilitated with verbal, visual and tactile cuing. Manual Therapy: 1: STM to the Bicep Femoris muscle belly and muscle-tendonis junction with hands w/ push to tolerance - 8 minutes. Skilled Intervention: Manual skills to improve joint mobility, ROM, and decrease pain. Utilized anatomy knowledge of the therapist, and assessment of patient's response to intervention. Billing Therapeutic Exercise Treatment Minutes: 34 Manual TherapyTreatment Minutes: 8 Total Treatment Time Minutes (timed/untimed): 42 MAURICE Renteria Supervising therapist was present and guided the care of the patient for the entire session on this date. All documentation was reviewed and agreed upon. Telly Salcedo PT documented in this encounter [facility] 05-23-2021 History of Presen t illness Narrative Episode Visit Count: 1 Therapist That Will Oversee The Plan Of Care: Telly Salcedo Start of Care Date: 05/23/21 Onset Date: 04/25/21 Plan of Care Certification Date: 05/23/21 Next Certification Due Date: 07/23/21 Patient Identified by Name and Date of : Yes REHABILITATION AND SPORTS THERAPY PHYSICAL THERAPY EVALUATION PLAN OF CARE: Assessment: Homer Chino presents with chief complaint of Right hamstring pain/symptoms that interferes with walking;walking in the community;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 He presents with impairments in ADL's, flexibility, gait, overall function, strength and tissue tenderness. PROMIS (Patient-Reported Outcomes Measurement Information System) scores were reviewed and physical function domain, social roles domain identified as a rehabilitation concern. Prognosis for therapy is Good due to: current objective clinical presentation;acuteness of condition;within-session changes;good support system/ coping skills . He will benefit from skilled therapy services to meet the goals established for this plan of care as noted below. Goals for Episode of Care: created on 05/23/21 through 08/01/21 [place] in home exercise program. Patient will demonstrate increase in Rt. LE strength to 5/5 during manual muscle testing in order to improve function for basic self-care tasks, home management tasks, leisure / recreation skills and work tasks. Patient will decrease pain rating by 2 points to meet minimal clinical important difference for numeric pain rating scale. Patient will increase flexibility of the Right Hamstring to equal unaffected extremity/side to improve gait mechanics and decrease pain. Normalize gait with active and passive hamstring lengthening without pain. Reciprocal stair negotiation. Patient Goals: Pain free. Getting back to work and ADL's without pain. Planned Interventions, Frequency, and Duration: Current Frequency: 2x/week Duration: 4 weeks Total Number of Visits Planned: 8 Planned Treatment Interventions: Therapeutic exercise (57450);Neuromuscular re-education (22056);Manual therapy (51497);Therapeutic activities (47237);Self-chcf management (69350);Gait Training (57807);Patient/Family/Caregiver Education;Body Mechanics Training PLAN FOR NEXT VISIT: IASTM, STM and hamstring stripping. Stretching and light strengthening exercises to pt. tolerance. Patient demonstrates good understanding of plan of care and treatment. The above goals and plan of care were discussed and agreed upon by patient/family. SUBJECTIVE: Homer Chino is a 45 year old male seen today for Pt. arrives to therapy in Lt. boot (foot ulcer) and w/ a crutch on the Rt. side. He complains of lateral posterior hamstring pain during all active movement and weightbearing activities. Patient describes getting into his tub shower and walking as his biggest deficit currently. No pain/symptoms during sitting or lying down, his sleep is not affected as well. Patient notes no BEATRIZ but gradual worsening of Rt. hamstring following prolonged compensation in mechanics from the Lt. foot ulcer. NSAIDS and Voltaren cream help the patient manage his pain. Patient Goals: Pain free. Getting back to work and ADL's without pain. 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 PROMIS Scales Higher is Better 05/23/2021 Phys Func - Score 32 (moderate dysfunction) Phys Func - Percentile 4 % Social Roles - Score 25 (severe dysfunction) Social Role - Percentile 1 % GH Physical - Score 32.4 (Poor) GH Physical - Percentile 4 % GH Mental - Score 48.3 (Very Good) GH Mental - Percentile 43 % T-scores: mean of general population = 50. 5 points is clinically meaningfully difference Percentiles provide an indication of how the patient's score ranks in relation to the general population. Higher percentile rankings indicate better function/quality of life. 50th percentile is the average of the general population and indicates half of respondents had a worse score. Lower is Better 05/23/2021 Fatigue - Score 53 (within normal limits) Fatigue - Percentile 38 % T-scores: mean of general population = 50. 5 points is clinically meaningfully difference Percentiles provide an indication of how the patient's score ranks in relation to the general population. Higher percentile rankings indicate better function/quality of life. 50th percentile is the average of the general population and indicates half of respondents had a worse score. OBJECTIVE MEASURES WITH LEVEL OF FUNCTION: LE Joint Mobility Joint Mobility Comment: Hamstring flexibility 90/90 testing: Rt. Hamstring 30 degrees from normal, Lt. hamstring 10 degrees from normal. LE Strength L LE Strength: Grossly 5/5 MMT Strength R Hip Extension: 3+/5 R Hip Flexion (L2): 4/5 R Hip ABduction: 4-/5 R Hip ADduction: 5/5 R Hip Internal Rotation: 5/5 R Hip External Rotation: 4/5 R Knee Extension (L3): 4/5 R Knee Flexion: 4-/5 R Ankle Dorsiflexion (L4): 5/5 R Ankle Plantar Flexion: 5/5 Education: Education Learning/educational needs: Home exercise program;Plan of Care;Changes in Plan of Care;Posture;Gait Training;Body Mechanics Education Provided: Yes, see treatment interventions for education provided Education Provided To: Patient TREATMENT: PT Treatment Interventions: Therapeutic Exercise;Manual Therapy;Self-Usp Management Evaluation Therapeutic Exercise: 1: Hamstring Stretch w/ band - supine, 2x30 2: Hamstring Stretch - seated, 2x30 3: Isometric hamstring heel push in - supine, 1x10 5 sec hold. Skilled Intervention: Patient was educated in proper exercise technique and purpose for exercises. Reviewed & educated patient on additions for home exercise program as above (*). Skilled judgment was provided in selection of appropriate interventions. Provided written instruction for home exercise program to facilitate proper performance and compliance. Correct performance of therapeutic exercises was facilitated with verbal, visual and tactile cuing. Manual Therapy: 1: STM to the Bicep Femoris muscle belly and muscle-tendonis junction with hands w/ push to tolerance - 8 minutes. Skilled Intervention: Manual skills to improve joint mobility, ROM, and decrease pain. Utilized anatomy knowledge of the therapist, and assessment of patient's response to intervention. Self-Usp Management: 1: Discussion and education of the importance of hamstrings during gait and everyday ADL's, anatomy and tissue healing of the injury, POC, HEP, and education on modification of home ADLs. Skilled Intervention: Skilled judgment in the selection of proper modification for activity of daily living/home management based on clinical presentation, deficits, and needs. Billing * Evaluation Low Complexity: 1 Unit Therapeutic Exercise Treatment Minutes: 13 Manual TherapyTreatment Minutes: 8 Self-Care/Home Management Treatment Minutes: 8 Total Treatment Time Minutes (timed and untimed codes) : 46 MAURICE Renteria Supervising therapist was present and guided the care of the patient for the entire session on this date. All documentation was reviewed and agreed upon. Telly Salcedo PT documented in this encounter [facility] 05-18-2021 History of Presen t illness Narrative PT ASSESSMENT - CASTING ROOM Homer presents for Application of brace. Applied XXL wrap around hinged knee brace to Right knee. Patient electronically signed Abhishek SCHMITZ. Patient has been instructed in Care and proper application of brace. Jo-Ann Merritt Ma SUBJECTIVE: Homer Chino is a 45 year old male who is here for a right leg injury. It occurred 2 weeks ago when he was walking, felt a pop and burning sensation behind the right knee. Symptoms include pain, tighness in the right leg along the lateral aspect of the posterior knee.. He was seen in [facility], x-rays were negative for acute bony injury and ultrasound was ordered which was negative for DVT. He has been ambulating with a crutch and using Advil for pain. He states that there are times when it starts to feel better but if he strains or moves quickly he notices the pain returns. To be noted, he had been on Levaquin for a lower extremity cellulitis several weeks prior to the injury. PAST MEDICAL HISTORY Diagnosis Date NEGATIVE MEDICAL HISTORY PAST SURGICAL HISTORY Procedure Laterality Date NONE Current Outpatient Medications on File Prior to Visit Medication Sig Tlpexogilpdgueo-Ucxpsgumi-VY (BROMFED DM) 2-30-10 mg/5 mL syrup Take 5 mL by mouth four times daily as needed. (Patient not taking: Reported on 02/26/2021 ) albuterol HFA (PROAIR HFA) 90 mcg/actuation inhaler Inhale 2 Puffs as instructed every 4 hours as needed. (Patient not taking: Reported on 02/26/2021 ) benzonatate (TESSALON PERLE) 100 mg capsule Take 1-2 capsules tid prn (Patient not taking: Reported on 01/28/2019 ) No current facility-administered medications on file prior to visit. EXAM: General: cooperative and NAD Location: Right posterior knee lateral aspect: Tenderness to palpation over the hamstring distal aspect with no palpable defect noted Negative for: Knee joint effusion, anterior joint line tenderness, varus valgus or anterior instability. Neurovascular: intact X-ray: no evidence of acute bony abnormality Ultrasound right lower extremity was negative for DVT IMPRESSION: Right hamstring strain, distal PLAN: Discussed expected recovery could be up to 8 weeks or longer. Recommend physical therapy with modalities as indicated Voltaren gel topically for symptom relief as well as ice and gentle stretching. Hinged wraparound knee brace to prevent over extension and stability Kali Caceres DO AMB ROOMING INTAKE FLOWSHEET DATA Risk Screening Do you have concerns about personal safety or safety in the home?: No Pain Pain Level: 10 (when weight bearing) Pain Location: (posterior knee) Description: Burning, Other: See comment (shocking) Duration Amount of Time: 2 Duration Units: Weeks Frequency: Intermittent Intervention/Comfort measure: Other: See comment (none) documented in this encounter [facility] 05-18-2021 Instructions Kali Caceres V, DO - 05/18/2021 10:57 AM EDT Thank you for choosing the [facility] for your acute care needs. [facility] treats minor infections, rashes and injuries. It is our mission for our patients to be healthy. A primary care relationship with the physician allows for continuity of care, counseling, and maintenance of preventive health care needs. [facility] does not replace the relationship or need for a primary care physician. For information about establishing with a primary care physician or booking an appointment, please call [phone] or speak with any Patient Washer [facility]. Hours: Friday through Friday 7:30 am to 7:00 pm. Friday and Friday: 8:00 am to 2:30 pm. documented in this encounter [facility] 05-10-2021 Miscellaneous Notes Phone call placed patient advised (see prior provider encounter) Patient verbalized understanding, agreed with plan of care. Rosa Baum LPN ----- Message from Erlinda Zelaya APRN.AGING DEPARTMENT SUPERVISOR sent at 05/10/2021 1:35 PM EDT ----- Please advise patient his US was normal. Follow instructions given by provider at visit, f/u with PCP if symptoms persist or worsen. Erlinda Zelaya APRN.AGING DEPARTMENT SUPERVISOR documented in this encounter [facility] 05-09-2021 Miscellaneous Notes I called and spoke with patient regarding negative US and femur xray results. Recommended aleve otc as well as tylenol. Rest, ice. Follow up with Dr Caceres. Patient agreeable with this plan. documented in this encounter [facility] 05-09-2021 History of Presen t illness Narrative Radiology Service Progress Note PATIENT NAME: Homer Chino DATE OF SERVICE: May 09, 2021 TIME: 3:59 PM PATIENT IDENTITY VERIFICATION COMPLETED USING TWO (2) IDENTIFIERS: Name and Date of confirmed by patient verbally. FALL SCREENING: Has the patient had 2 falls in the last year or 1 fall with injury or currently using an Ambulatory Assistive Device (Walker, Cane, Wheelchair, Crutches, etc.)? No PATIENT GENDER DATA: Male PATIENT RELEVANT IMPLANT DATA REVIEWED: Not Applicable RADIOLOGY DEPARTMENT: General X-ray: Exam(s) Completed: Lower Extremity X-Ray(s): Femur, Right PERIPHERAL IV DATA: Not applicable SIGNED BY: RT Zurdo(R) May 09, 2021 3:59 PM documented in this encounter [facility] 05-09-2021 History of Presen t illness Narrative This note was created using NoteWriter. Subjective Homer Chino is a 45 year old male. HPI Patient presents with right leg pain for 1 week. It hurts from the back of his knee to his mid thigh. Very painful when he attempts to walk. Certain movements cause sharp increase in pain. He was admitted ot the hospital on 04/27 for a wound on his foot that caused significant cellulitis. He just finished a course of levaquin as well. No cp or sob. No history of dvt or pe. Review of Systems Musculoskeletal: Right leg pain All other systems reviewed and are negative. PAST MEDICAL HISTORY Diagnosis Date NEGATIVE MEDICAL HISTORY Current Outpatient Medications Medication Sig Dispense Refill Dlfylszpaallpcy-Uvwpbdbxw-MV (BROMFED DM) 2-30-10 mg/5 mL syrup Take 5 mL by mouth four times daily as needed. (Patient not taking: Reported on 02/26/2021 ) 118 mL 0 albuterol HFA (PROAIR HFA) 90 mcg/actuation inhaler Inhale 2 Puffs as instructed every 4 hours as needed. (Patient not taking: Reported on 02/26/2021 ) 1 Inhaler 0 benzonatate (TESSALON PERLE) 100 mg capsule Take 1-2 capsules tid prn (Patient not taking: Reported on 01/28/2019 ) 30 capsule 0 No current facility-administered medications for this visit. PAST SURGICAL HISTORY Procedure Laterality Date NONE No family history on file. Social History Tobacco Use Smoking status: Former Smoker Packs/day: 1.00 Years: 10.00 Pack years: 10.00 Quit date: 02/02/2004 Years since quittin.2 Smokeless tobacco: Current User Types: Chew Substance Use Topics Alcohol use: Yes Drug use: Not on file Objective BP 128/72 Pulse 94 Temp 36.3 C (97.3 F) Resp 16 Wt (!) 190.5 kg (420 lb) SpO2 96% Physical Exam Vitals reviewed. Constitutional: Appearance: Normal appearance. HENT: Head: Normocephalic and atraumatic. Musculoskeletal: Comments: Exam of the right leg reveals minimal ttp of the right distal hamstring to mid posterior thigh. He has pain with initiating movement on flexion in the thigh and with weight bearing. Dorsalis pedis pulse 2+. Able to fully flexion and extend at the right knee. No ttp of the knee joint. No obvious peripheral edema. Negative homans sign. Skin: General: Skin is warm and dry. Neurological: Mental Status: He is alert. Assessment and Plan ASSESSMENT/PLAN: 1. Right leg pain - ICD9: 729.5, ICD10: M79.604 US and xrays ordered. Patient will have these completed at [facility]. Patient at risk for tendon rupture due to being on levaquin recently for his foot wound. No obvious weakness on exam. Will rule out dvt as well. Will call on results. - US LEG VEIN DVT UNL VAS LAB - XR FEMUR GENERAL 2V AP/LAT RIGHT Sri Robbins PA-C documented in this encounter [facility] Evaluation + Plan note No data available for this section [facility] Diagnosis Right leg pain Pain in limb [facility] Diagnosis Hamstring strain, right, subsequent encounter- Primary [facility] Diagnosis Hamstring strain, right, subsequent encounter- Primary [facility] Diagnosis Hamstring strain, right, subsequent encounter- Primary [facility]* Diagnosis Dietary counseling- Primary Dietary surveillance and counseling Morbid obesity (HCC) Morbid obesity Prediabetes Other abnormal glucose BMI 50.0-59.9, adult (HCC) Body Mass Index 50.0-59.9, adult [facility] Diagnosis Scrotal abscess Other inflammatory disorder of male genital organs [facility] Diagnosis Acute non-recurrent pansinusitis- Primary Acute cough [facility]* Diagnosis Cellulitis of left foot- Primary Cellulitis and abscess of foot, except toes documented in this encounter [facility] for referral (narrative)* Diagnostic Procedure Only (Urgent) - Closed Specialty Diagnoses / Procedures Referred By Laureen t Referred To Contact XR IMAGING Diagnoses Right leg pain Procedures XR FEMUR GENERAL 2V AP/LAT RIGHT RADIOLOGIC EXAMINATION FEMUR MINIMUM 2 VIEWS Sri Robbins PA-C [address] [place] [address] Xr Imaging Referral ID Status Reason Start Date Expiration Date V isits Requested Visits Authorized [id number] Closed Auto-Generate d Referral 05/09/2021 06/08/2022 1 1 * Outpatient Procedure (Urgent) - Closed Specialty Diagnoses / Procedures Referred By Contac t Referred To Contact [facility] Diagnoses Right leg pain Procedures US LEG VEIN DVT UNL VAS LAB DUP-SCAN XTR VEINS UNILATERAL/LIMITED STUDY Sri Robbins PA-C [address] [place] [address] [facility] [address] [place] [address] Referral ID Status Reason Start Date Expiration Date V isits Requested Visits Authorized [id number] Closed Auto-Generate d Referral 05/09/2021 05/09/2022 1 1 [facility] for referral (narrative)* Diagnostic Procedure Only (Urgent) - Closed Specialty Diagnoses / Procedures Referred By Contac t Referred To Contact XR IMAGING Diagnoses Right leg pain Procedures XR FEMUR GENERAL 2V AP/LAT RIGHT RADIOLOGIC EXAMINATION FEMUR MINIMUM 2 VIEWS Sri Robbins PA-C [address] [place] [address] Xr Imaging Referral ID Status Reason Start Date Expiration Date V isits Requested Visits Authorized [id number] Closed Auto-Generate d Referral 05/09/2021 06/08/2022 1 1 [facility] for visit Narrative* Diagnostic Procedure Only (Urgent) - Closed Specialty Diagnoses / Procedures Referred By Contac t Referred To Contact XR IMAGING Diagnoses Right leg pain Procedures XR FEMUR GENERAL 2V AP/LAT RIGHT RADIOLOGIC EXAMINATION FEMUR MINIMUM 2 VIEWS Sri Robbins PA-C [address] [place] [address] Xr Imaging Referral ID Status Reason Start Date Expiration Date V isits Requested Visits Authorized [id number] Closed Auto-Generate d Referral 05/09/2021 06/08/2022 1 1 [facility] Summary Purpose Family History No Family History Records FoundNo Family History Records Found No data available for this section No Family History Records FoundNo Family History Records Found Advance Directives No Advanced Directives Records FoundNo Advanced Directives Records FoundNo Advanced Directives Records FoundNo Advanced Directives Records Found Reason for Referral Specialty Diagnoses / Procedures Referred By Contac t Referred To Contact [facility] Diagnoses Hamstring strain, right, subsequent encounter Procedures CONSULT TO PHYSICAL THERAPY PHYSICAL THERAPY EVALUATION HIGH COMPLEX 45 MINS Kali Caceres V, DO [address] [place] [address] [facility] [address] [place] [address] Referral ID Status Reason Start Date Expiration Date Visits Requested Visits Authorized [id number] Authorized Auto-Generat ed Referral 02/17/2021 02/16/2022 30 30 Additional Source Comments (unrecognized sect ion and content) No Status Records FoundNo Status Records FoundNo Status Records FoundNo Status Records Found INFORMATION SOURCE (unrecogn ized section and content) DATE CREATED AUTHOR AUTHOR'S ORGANIZ ATION 02/16/2020 [facility] DATE CREATED AUTHOR AUTHOR'S ORGANIZ ATION 09/23/2022 [facility] ([place]) DATE CREATED AUTHOR AUTHOR'S ORGANIZ ATION 02/03/2023 [facility] Source Comments (unrecognize d section and content) In the event this informatio n is protected by the Federal Confidentiality of Alcohol and Drug Abuse Patient Records regulations: The Federal rules restrict any use of the information to criminally investigate or prosecute any alcohol or drug abuse patient.[facility] the event this information is protected by the Federal Confidentiality of Alcohol and Drug Abuse Patient Records regulations: The Federal rules restrict any use of the information to criminally investigate or prosecute any alcohol or drug abuse patient.[facility] the event this information is protected by the Federal Confidentiality of Alcohol and Drug Abuse Patient Records regulations: The Federal rules restrict any use of the information to criminally investigate or prosecute any alcohol or drug abuse patient.[facility] the event this information is protected by the Federal Confidentiality of Alcohol and Drug Abuse Patient Records regulations: The Federal rules restrict any use of the information to criminally investigate or prosecute any alcohol or drug abuse patient.[facility] the event this information is protected by the Federal Confidentiality of Alcohol and Drug Abuse Patient Records regulations: The Federal rules restrict any use of the information to criminally investigate or prosecute any alcohol or drug abuse patient.[facility] Rehabilitation[facility] the event this information is protected by the Federal Confidentiality of Alcohol and Drug Abuse Patient Records regulations: The Federal rules restrict any use of the information to criminally investigate or prosecute any alcohol or drug abuse patient.[facility] Rehabilitation[facility] the event this information is protected by the Federal Confidentiality of Alcohol and Drug Abuse Patient Records regulations: The Federal rules restrict any use of the information to criminally investigate or prosecute any alcohol or drug abuse patient.[facility] Rehabilitation[facility] the event this information is protected by the Federal Confidentiality of Alcohol and Drug Abuse Patient Records regulations: The Federal rules restrict any use of the information to criminally investigate or prosecute any alcohol or drug abuse patient.[facility] Rehabilitation[facility] the event this information is protected by the Federal Confidentiality of Alcohol and Drug Abuse Patient Records regulations: The Federal rules restrict any use of the information to criminally investigate or prosecute any alcohol or drug abuse patient.[facility] Rehabilitation[facility] the event this information is protected by the Federal Confidentiality of Alcohol and Drug Abuse Patient Records regulations: The Federal rules restrict any use of the information to criminally investigate or prosecute any alcohol or drug abuse patient.[facility] Rehabilitation[facility] the event this information is protected by the Federal Confidentiality of Alcohol and Drug Abuse Patient Records regulations: The Federal rules restrict any use of the information to criminally investigate or prosecute any alcohol or drug abuse patient.[facility] Rehabilitation[facility] the event this information is protected by the Federal Confidentiality of Alcohol and Drug Abuse Patient Records regulations: The Federal rules restrict any use of the information to criminally investigate or prosecute any alcohol or drug abuse patient.[facility] Rehabilitation[facility] the event this information is protected by the Federal Confidentiality of Alcohol and Drug Abuse Patient Records regulations: The Federal rules restrict any use of the information to criminally investigate or prosecute any alcohol or drug abuse patient.[facility] Reason for Visit (unrecogniz ed section and content) Specialty Diagnoses / Procedures Referred By Contac t Referred To Contact [facility] Diagnoses Hamstring strain, right, subsequent encounter Procedures CONSULT TO PHYSICAL THERAPY PHYSICAL THERAPY EVALUATION HIGH COMPLEX 45 MINS Kali Caceres V, [address] [place] [address] [facility] [address] [place] [address] Referral ID Status Reason Start Date Expiration Date Visits Requested Visits Authorized [id number] Authorized Auto-Generat ed Referral 02/17/2021 02/16/2022 30 30 Reason Comments Leg Pain right leg pain,side of thigh x 1 week Reason Comments Results Reason Comments New Patient Right leg pain REF: [facility] x-ray & u/s: 05/09/2021 Reason Comments PT Eval Reason Comments Patient Education Assessment Specialty Diagnoses / Procedures Referred By Contac t Referred To Contact Nutrition Diagnoses Morbid obesity (HCC) Prediabetes Procedures CONSULT TO NUTRITION THERAPY OFFICE/OUTPATIENT [facility] 60-74 MINUTES Rory Smith MD [address] [place] [address] Referral ID Status Reason Start Date Expiration Date V isits Requested Visits Authorized [id number] Closed PCP Requested Referral 06/01/2021 06/01/2022 1 1 Reason Comments Consult Lump on scrotum Specialty Diagnoses / Procedures Referred By Contac t Referred To Contact Urology Diagnoses Scrotal abscess Procedures CONSULT TO UROLOGY OFFICE/OUTPATIENT [facility] MDM 60-74 MINUTES Vern Parker APRN.CNP [address] [place] [address] Referral ID Status Reason Start Date Expiration Date V isits Requested Visits Authorized [id number] Closed PCP Requested Referral 10/11/2021 10/11/2022 1 1 Reason Comments Cough Pt reported intermit tent throat pain with coughing rated 3, x1 wk. Reason Comments Infection 2nd toe on left food Care Teams (unrecognized sec tion and content) Strategic Partner Development Manager Relationship Specialty Start Date End Date Rory Smith MD [address] [facility] [place] [address] PCP - [facility] 02/26/21 Strategic Partner Development Manager Relationship Specialty Start Date End Date Rory Smith MD [address] [place] [address] PCP - General Family Practice 02/26/21 Strategic Partner Development Manager Relationship Specialty Start Date End Date Rory Smith MD [address] [facility] [place] [address] PCP - [facility] 02/26/21 Strategic Partner Development Manager Relationship Specialty Start Date End Date Rory Smith MD [address] [place] [address] PCP - [facility] 02/26/21 Strategic Partner Development Manager Relationship Specialty Start Date End Date Rory Smith MD [address] [facility] [place] [address] PCP - [facility] 02/26/21 Strategic Partner Development Manager Relationship Specialty Start Date End Date Rory Smith MD [address] [place] [address] PCP - [facility] 02/26/21 05/31/21 Strategic Partner Development Manager Relationship Specialty Start Date End Date Licha Brar MD [address] [facility] [address] [place] [phone] PCP - General Internal Medicine 02/01/23 FOR RECORDS PERTAINING TO PATIENTS WHO ARE OR HAVE BEEN ENROLLED IN A CHEMICAL DEPENDENCY/SUBSTANCEABUSE PROGRAM, SOME INFORMATION MAY BE OMITTED. This clinical summary was aggregated from multiple sources. Caution should be exercised in using it in the provision of clinical care. This summary normalizes information from multiple sources, and as a consequence, information in this document may materially change the coding, format and clinical context of patient data. In addition, data may be omitted in some cases. CLINICAL DECISIONS SHOULD BE BASED ON THE PRIMARY CLINICAL RECORDS. [facility] [employer] [facility]. provides no warranty or guarantee of the accuracy or completeness of information in this document.
[2023-02-24 13:02] VITALS: BP 131/78; PULSE 96; RESP 18; TEMP 36.6; O2SAT 98
[2023-02-24 13:16] VITALS: BP 131/78; PULSE 96; RESP 18; TEMP 36.6; O2SAT 98
[2023-02-24 13:25] LABS: Absolute Lymphocyte Count 2.53 X10^3/uL (0.83-4.51); Absolute Neutrophil Count 5.6 X10^3/uL (2.0-7.7); Basophil# 0.04 X10^3/uL; Basophil% 0.5 % (0-1); Eosinophil# 0.16 X10^3/uL; Eosinophils% 1.8 % (0-5); Hematocrit 44.9 % (40-54); Hemoglobin 15.3 g/dL (13.0-16.5); Lymphocyte # 2.53 X10^3/ul (0.83-4.51); Lymphocyte % 28.7 % (19-41); Mean Corp Hgb Conc 34.1 g/dL (32-36); Mean Corpuscular Hgb 28.6 pg (27.0-32.0); Mean Corpuscular Volume 83.9 fL (80-94); Mean Platelet Vol. 9.5 fl (6.2-12.0); Monocyte% 5.7 % (0-10); NRBC Flagged by Analyzer 0 % (0-5); Neutrophil # 5.55 X10^3/uL (2.7-7.7); Platelet Count 183 K/mm3 (150-450); RBC Distribution Width CV 13.3 % (11.6-14.6); RBC Distribution Width SD 40.3 fl (35.1-43.9); Red Blood Count 5.35 M/mm3 (4.6-6.2); White Blood Count 8.8 K/mm3 (4.4-11.0)
--- NOTE | 2023-02-24 13:29 | WOUNDNOTE ---
wound photo: left 2nd toe
[2023-02-24 13:32] LABS: Erythrocyte Sedimentation Rate 11 mm/hr (0-20)
[2023-02-24 13:45] LABS: ALB/GLOB Ratio 1.1 RATIO (0.9-2.4); AST(SGOT) 13 U/L (15-37); Alanine Aminotransfer ALT/SGPT 32 U/L (16-61); Albumin, Serum 3.3 g/dL (3.2-5.0); Alkaline Phosphatase 86 U/L (45-117); Anion Gap 5 (5-15); BUN 16 mg/dL (7-18); BUN/Creat Ratio 18.4 RATIO (10-20); CRP 5.19 mg/L (0.0-3.0); Calcium,Total 8.5 mg/dL (8.5-10.1); Chloride 104 mmol/L (98-107); Creatinine, Serum 0.87 mg/dL (0.70-1.30); EST Glomerular Filtration Rate 100 mL/min (>60); Est Glom Filt Rate - Afr Amer 121 mL/min (>60); Estimated Creatinine Clearance 125.45 ml/min; Glucose 302 mg/dL (74-106); Potassium 3.8 mmol/L (3.5-5.1); Protein, Total 6.3 g/dL (6.4-8.2); Sodium Level 136 mmol/L (136-145)
[2023-02-24] MEDS: Piperacil/Tazobactam 3.375 GM in 0.9% Normal Saline (50mL MB+) 50 ML IV ×2 (13:57→23:39)
[2023-02-24] MEDS: Vancomycin HCl 2,000 MG in 0.9% Normal Saline (500mL Bag) 500 ML 250 MG IV (14:07)
--- OUTSIDE RECORDS SUMMARY | 2023-02-24 14:45 | XMS RPT_ITS | CCD ---
Author Name Unknown Address [address] [place] [address] Organization [facility] Care Team Providers Care Clerk Of Court Name Role Phone AVANI MARROQUIN Attending Unavailable AVANI MARROQUIN Primary Care Unavailable AVANI MARROQUIN Admitting Unavailable Rory Smith MD Primary Care Provider Unavailable Primary Care Provider Rory Parker MD Primary Care Provider Unavailable Primary Care Provider UnavailLICHA Etienne MD Primary Care Physician ( 30) LICHA BRAR MD Primary Care Unavailab ISAAC Perez MD Attending Unavailable Licha Brar MD Primary Care Provider [phone] LICHA BRAR Primary Care Unavailable Medications Current [...] Drug Class(es) Dates Sig (Normalized) Sig (Original) [id number] 200 actuat albuterol 0.09 mg/actuat metered dose [...] 02-01-2023 15:18-0500 Body temperature 98.1 [degF] Javier eRed MD Work Phone: [facility] 02-01-2023 15:18-0500 Body weight 176.45 kg Javier Reed MD Work Phone: [facility] 02-01-2023 15:18-0500 Diastolic blood pressure 84 mm[Hg] Javier Reed MD Work Phone: [facility] 02-01-2023 15:18-0500 Heart rate 97 /min Javier Reed MD Work Phone: [facility] 02-01-2023 15:18-0500 Respiratory rate 16 /min Javier Reed MD Work Phone: [facility] 02-01-2023 15:18-0500 SaO2% (BldA) [Mass fraction] 98 % Javier Reed MD Work Phone: [facility] 02-01-2023 15:18-0500 Systolic blood pressure 126 mm[Hg] Javier Reed MD Work Phone: [facility] 09-21-2022 17:33-0400 Blood Pressure Location ISAAC BURGER MD [facility] 09-21-2022 17:33-0400 Body temperature 97.88 [degF] ISAAC BURGER MD [facility] 09-21-2022 17:33-0400 Diastolic Blood Pressure Non-Invasive 80 1 ISAAC BURGER MD [facility] 09-21-2022 17:33-0400 Heart rate 107 /min ISAAC BURGER MD [facility] 09-21-2022 17:33-0400 Systolic Blood Pressure Non-Invasive 119 1 ISAAC BURGER MD [facility] 01-22-2022 10:36-0500 Body temperature 97.81 [degF] Evelyn Mirtha WINDOW DECORATOR.TOBACCO PACKING MACHINE OPERATOR Work Phone: [facility] 01-22-2022 10:36-0500 Body weight 190.96 kg Evelyn Mirtha WINDOW DECORATOR.TOBACCO PACKING MACHINE OPERATOR Work Phone: [facility] 01-22-2022 10:36-0500 Diastolic blood pressure 74 mm[Hg] Evelyn Mirtha WINDOW DECORATOR.TOBACCO PACKING MACHINE OPERATOR Work Phone: [facility] 01-22-2022 10:36-0500 Heart rate 102 /min Evelyn Mirtha WINDOW DECORATOR.TOBACCO PACKING MACHINE OPERATOR Work Phone: [facility] 01-22-2022 10:36-0500 Respiratory rate 16 /min Evelyn Mirtha WINDOW DECORATOR.TOBACCO PACKING MACHINE OPERATOR Work Phone: [facility] 01-22-2022 10:36-0500 SaO2% (BldA) [Mass fraction] 97 % Evelyn Mirtha WINDOW DECORATOR.TOBACCO PACKING MACHINE OPERATOR Work Phone: [facility] 01-22-2022 10:36-0500 Systolic blood pressure 136 mm[Hg] Evelyn Mirtha WINDOW DECORATOR.TOBACCO PACKING MACHINE OPERATOR Work Phone: [facility] 10-17-2021 08:11-0400 Body height 190.5 cm Jamee Olimpiar WINDOW DECORATOR.TOBACCO PACKING MACHINE OPERATOR Work Phone: [facility] 10-17-2021 08:11-0400 Body weight 191.42 kg Jamee Nguyen WINDOW DECORATOR.TOBACCO PACKING MACHINE OPERATOR Work Phone: [facility] 07-09-2021 10:11-0400 Body height 190.[address] [facility] 07-09-2021 10:11-0400 Body weight 187.[address] [facility] 05-09-2021 11:45-0400 Body temperature 97.3 [degF] Sri Robbins PA-C Work Phone: [facility] 05-09-2021 11:45-0400 Body weight 190.51 kg Sri Melquiadesy PA-C Work Phone: [facility] 05-09-2021 11:45-0400 Diastolic blood pressure 72 mm[Hg] Sri Arnetty PA-C Work Phone: [facility] 05-09-2021 11:45-0400 Heart rate 94 /min Sri Arnetty PA-C Work Phone: [facility] 05-09-2021 11:45-0400 Respiratory rate 16 /min Sri Arnetty PA-C Work Phone: [facility] 05-09-2021 11:45-0400 SaO2% (BldA) [Mass fraction] 96 % Sri Robbins PA-C Work Phone: [facility] 05-09-2021 11:45-0400 Systolic blood pressure 128 mm[Hg] Sri Arnetty PA-C Work Phone: [facility] Encounters Encounter Date Encounter Type Care Provider Facility Start: 02-01-2023 End: 02-01-2023 ambulatory OPALMILLER BRAR Facility:[facility] Start: 02-01-2023 End: 02-01-2023 Patient encounter procedure Javier Reed MD Work Phone: [facility] Procedures Date Procedure Procedure Detail Performing Clinician Start: 05-09-2021 Radiologic examinati on femur minimum 2 views Sri Robbins PA-C Work Phone: Plan of Treatment Date Care Activity Detail Author Start: 10-18-2022 Influenza vaccination Influenza Vaccine (#1) [facility] Start: 02-17-2022 Depression Assessment Depression Assessment [facility] Start: 10-18-2021 Influenza vaccination [facility] Start: 02-17-2021 DEPRESSION ASSESSMENT DEPRESSION ASSESSMENT [facility] Start: 10-18-2020 Influenza vaccination INFLUENZA (#1) [facility] Start: 08-04-2020 COLOGUARD (FIT-DNA) COLOGUARD (FIT-DNA) [facility] Start: 08-04-2020 Colonoscopy COLONOSCOPY [facility] Start: 08-04-2020 COLORECTAL CANCER SCREENING COLORECTAL CANCER SCREENING [facility] Start: 08-04-[address] COLONOGRAPHY [facility] Start: 08-04-2020 DIABETES SCREEN DIABETES SCREEN [facility] Start: 08-04-2020 Diabetes Screening Diabetes Screening [facility] Start: 08-04-2020 FECAL OCCULT BLOOD FECAL OCCULT BLOOD [facility] Start: 08-04-2020 Screening for malignant neoplasm of colon [facility] Start: 08-04-2020 SIGMOIDOSCOPY SIGMOIDOSCOPY [facility] Start: 08-04-2010 Lipid panel Lipid Screening [facility] Start: 08-04-2010 LIPID SCREEN LIPID SCREEN [facility] Start: 08-04-1994 Urine microalbumin profile [facility] Start: 08-04-1993 HEPATITIS C SCREENING HEPATITIS C SCREENING [facility] Start: 08-04-1993 Hepatitis C screening Hepatitis C Screening [facility] Start: 08-04-1993 HIV SCREENING HIV SCREENING [facility] Start: 08-04-1993 HIV screening HIV Screening [facility] Start: 1987 Adult depression screening assessment DEPRESSION SCREENING [facility] Start: 08-04-1980 COVID-19 VACCINE (#1) COVID-19 VACCINE (#1) [facility] Start: 08-04-1980 COVID-19 VACCINE (1) COVID-19 VACCINE (1) [facility] Start: 02-04-1976 COVID-19 VACCINE (#1) COVID-19 VACCINE (#1) [facility] Start: 1975 HEPATITIS B (1 of 3 - 3-dose series) HEPATITIS B (1 of 3 - 3-dose series) [facility] Start: 1975 Hepatitis B Vaccine (1 of 3 - 3-dose series) Hepatitis B Vaccine (1 of 3 - 3-dose series) [facility] PT PLAN OF CARE CERTIFICATION PT PLAN OF CARE CERTIFICATION Procedures Routine Hamstring strain, right, subsequent encounter Ordered: 05/23/2021 [facility] Work Phone: Payers Date Payer Category Payer Unknown [id number] 2022 Unknown [employer] [id number] 2022-Present [phone] [address] [place] [address] O [id number] 2021 Medicaid [place] [employer] [place] [employer] [id number] 2021-Present [phone] [address] [place] [address] Medicaid [id number] 2021 Medicaid [place] [employer] [id number] 2021-Present [phone] [address] [place] [address] Medicaid [id number] 1975 Unknown [id number] 1975 Unknown [id number] Unknown [id number] Social History Date Type Detail Facility Start: 02-01-2019 End: 10-11-2021 Tobacco smoking status NHIS Ex-smoker [facility] Work Phone: End: 02-02-2004 History of tobacco use Current smoker [facility] Work Phone: Start: 02-01-2019 End: 01-26-2020 Cigarettes smoked current (pack per day) - Reported 1 [facility] Start: 02-01-2019 Tobacco use and exposure User of smokeless tobacco [facility] Work Phone: History of tobacco use Chews Tobacco [facility] Work Phone: Start: 05-09-2021 End: 02-01-2023 Alcohol intake Current drinker of alcohol (finding) [facility] Start: 1975 Sex Assigned At Male C [facility] Start: 04-29-2021 End: 10-17-2021 Exposure to SARS-CoV-2 (event) Not sure [facility] Start: 02-01-2019 End: 10-11-2021 Tobacco use and exposure Former smokeless tobacco user [facility] Work Phone: End: 02-02-2004 History of tobacco use Cigarette Smoker [facility] Tobacco smoking status No Smokin g Status Entered [facility] Start: 01-26-2020 End: 02-01-2023 Tobacco use panel [facility] National Score (1-10 0), lower number is lower risk Not on file [facility] Start: 02-26-2021 Gender identity Identifies as male gender (finding) [facility] Functional Status Date Assessment Result Facility 09-21-2022 Functional Status Independent [facility] Mental Status Date Assessment Result Facility 09-21-2022 Mental Status Orientation Oriented x 4 [facility] Clinical Notes 05-09-2021 to 02-01-2023 Javier Reed MD - 02/01/2023 3:20 PM ESTPatient InstructionsEvelyn Shannon APRN.[facility] - 01/22/2022 10:49 AM Oneyda Nguyen APRN.[facility] - 10/17/2021 8:17 AM EDTPatient Instructions Note Date & Type Note Facility 02-01-2023 Note HNO ID: [id number] Author: Javier Reed MD Service: ? Author [...] and systemic symptoms. He will go to [facility]. Report sent by ER [facility]. Javier Reed MD [facility] 02-01-2023 History of Presen t illness [...] and systemic symptoms. He will go to [facility]. Report sent by ER [facility]. Javier Reed MD documented in this encounter [facility] 09-21-2022 Hospital Discharg e instructions Patient Education [...] Boil returns when you are at home [id number] [employer]. [address] [place] [address], [place] [address]. All rights reserved. This information is not intended as a substitute for professional medical care. Always follow your healthcare professional's instructions. Follow Up Care 09/21/2022 17:28:55 With:LIZY SWAIN MD, [facility] Address: [address] [place] [phone] [phone] When:2-4 days Comments:Schedule appointment as soon as possible With:LICHA BRAR MD Address: [facility] [place] [address]- [phone] When:2-4 days [facility] 09-21-2022 Note Discharge Instructions Thank you for allowing [facility] to assist you with your healthcare needs. [...] Appointments Follow Up with LIZY SWAIN MD, [facility] When Within 2-4 days Why: Schedule appointment as soon as possible Where: [address] [place] [phone] Follow Up with LICHA BRAR MD When Within 2-4 days Where: [address] [place] [address] [place] [address]- [phone] Allergies NKA Medications Please ask your primary [...] may report side effects to FDA at 8-836-UNT-4602. What other drugs will affect amoxicillin and clavulanate potassium? Tell your doctor about all your other medicines, especially: allopurinol; probenecid; or a blood thinner--warfarin, Coumadin, Jantoven. This list is not complete. Other drugs may affect amoxicillin and clavulanate potassium, including prescription and wmqb-hnt-mtqzmvh medicines, vitamins, and herbal products. Not all [...] to ensure that the information provided by [employer]. ('[employer]') is accurate, up-to-date, and complete, but no guarantee is made to that effect. Drug information contained herein may be time sensitive. [employer] information has been compiled for use by healthcare practitioners and consumers in the [place] and therefore [employer] does not warrant that uses outside of the [place] are appropriate, unless specifically indicated otherwise. [employer] drug information does not endorse drugs, diagnose patients or recommend therapy. [employer] drug information is an informational resource designed [...] effective or appropriate for any given patient. [employer] does not assume any responsibility for any aspect of healthcare administered with the aid of information [employer] provides. The information contained herein is not intended to cover all possible uses, directions, precautions, warnings, drug interactions, allergic reactions, or adverse effects. If you have questions about the drugs you are taking, check with your doctor, nurse or pharmacist. Copyright 8100-6722 [employer]. Version: 14.. Revision Date: 11/23/2021. Education Materials [...] Boil returns when you are at home [phone] [employer]. [address] [place] [address], [place] [address]. All rights reserved. This information is not intended as a substitute for professional medical care. Always follow your healthcare professional's instructions. Additional Information VACCINATE! IT SAVES LIVES! Members of the community who have not yet received the COVID-19 vaccine and would like to receive it can visit one of [facility] vaccine clinics. There are many vaccine clinic locations within the [facility]. For locations and available times, please visit [email or web address] [email or web address] It is important to note that some COVID mobile vaccine clinics are held outdoors and may be canceled in rainy or stormy conditions. To learn more about pediatric vaccinations (ages 5-11), we invite you to visit the [facility] webpage. [email or web address]://[email or web address]/p [email or web address]-Wndcq-Hjxicyliazz-Freq dbooff-Ufano-Rqdhmsiky.html To learn more about the COVID-19 vaccine, we invite you to visit the CDC website for a list of frequently asked questions. https://www.cdc.gov/coronavirus/ 2019-ncov/vaccines/faq.html [facility] Access Instructions: Stay connected with your healthcare team and access your personal medical information anytime with the [facility] Portal. If you would like a full copy of your medical records please contact the [facility] Medical Records Department Friday through Friday between 8a.m. and 4:30p.m. Please follow the directions below to access the portal: 1.Access the email account you provided upon registration to the hospital.2.Look for an invitation email from [facility].3.Open the email and access the invitation link: Accept Invitation to [facility].Fill in the required douglas to create your account. Sign into [email or web address] with your username and password that you [...] you will allow to register on the [facility] for access to your information. You can also access the [facility] Portal on the [employer] bel. Simply click on Health Records under Health Data and then click on the [employer] logo. HOW TO SAFELY DISPOSE OF PRESCRIPTION [...] Call your local pharmacy or go to [email or web address] to find one close to you.3.Make use of household items: Use cat litter or old coffee grounds to dispose medications if other options are not available. Mix your drugs with these household products, seal them in an airtight container and throw it into the garbage. Call [facility]: [phone] to be sure your drugs can be [...] aware that I should contact my doctor. Patient/Finish Cleaner Signature: Date/Time: Relationship to Patient: Witness Name/Signature: Date/Time: [facility] 01-22-2022 Instructions Evelyn Shannon APRN.[facility] - 01/22/2022 [...] inability to swallow. documented in this encounter [facility] 01-22-2022 History of Presen t illness Narrative Subjective The history is provided by the patient. No plumbing mechanic was used. HPI Homer Chino is a [...] have confirmed and edited as necessary, the [facility] Review of Systems Constitutional: Negative for [...] Evelyn Shannon APRN.TINY documented in this encounter [facility] 10-17-2021 History of Presen t illness Narrative [...] doxycycline -contact our office if symptoms persist aJmee Nguyen APRN.CNP Patient is instructed to schedule a follow up as needed. documented in this encounter [facility] 07-09-[address] - 07/09/2021 [...] start. 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 Partially met Patient [...] Patient to be seen for Therapeutic exercise (05945);Neuromuscular re-education (24949);Manual therapy (16639);Therapeutic activities (53210);Self-long term management (46315);Gait Training (98950);Patient/Family/Caregiver Education;Body Mechanics Training PLAN FOR NEXT VISIT: IA SUBJECTIVE: Patient Reason for Visit: Pt doing [...] and assessment of patient's response to intervention. Self-Senior Care Management: 1: Discussed self STM at home, [...] Telly Salcedo PT documented in this encounter [facility] 06-13-2021 History of Presen t illness Narrative [...] toward set goals. PLAN FOR NEXT VISIT: IA SUBJECTIVE: Patient Reason for Visit: Pt. reports [...] w/ eccentric lowering 3 sec- 2x15 2: Jmu-jb-Sffmsu off mat table: 2x10 3: Isotonic Prone [...] Telly Salcedo PT documented in this encounter [facility] 05-31-2021 History of Presen t illness Narrative [...] issues. He demonstrated difficulty with lowering during lmm-hr-gteljk and other concentric hamstring contractions. The patient will continue to benefit from ongoing skilled physical therapy to progress toward set goals. PLAN FOR NEXT VISIT: IASTM, STM to distal biceps femoris tendon. Continue finding tolerable interventions that strengthen the hamstring. SUBJECTIVE: Patient Reason for Visit: Pt. reports to therapy reporting of Rt. hamstring weakness with ikd-bl-dmzqw and intial walking. Reports getting in the [...] w/ eccentric lowering 3 sec- 2x10 2: Vvq-lk-Iwsufl off mat table: 2x10 3: Isometric hamstring [...] Telly Salcedo PT documented in this encounter [facility] 05-23-2021 History of Presen t illness Narrative [...] of Care: created on 05/23/21 through 08/01/21 [place] in home exercise program. 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 Self-Senior Care Management: 1: Discussion and education of the [...] Telly Salcedo PT documented in this encounter [facility] 05-18-2021 History of Presen t illness Narrative [...] the posterior knee.. He was seen in [facility], x-rays were negative for acute bony injury [...] on File Prior to Visit Medication Sig Agbcywflxlpqdwh-Dbsetdwwh-JC (BROMFED DM) 2-30-10 mg/5 mL syrup Take [...] See comment (none) documented in this encounter [facility] 05-18-2021 Instructions Kali Caceres V, DO - 05/18/2021 10:57 AM EDT Thank you for choosing the [facility] for your acute care [...] physician or booking an appointment, please call [phone] or speak with any Patient Boring Machine Operator Helper. Hours: Friday through Friday 7:30 am to 7:00 pm. Friday and Friday: 8:00 am to 2:30 pm. documented in this encounter [facility] 05-10-2021 Miscellaneous Notes Phone call placed patient advised (see prior provider encounter) Patient verbalized understanding, agreed with plan of care. Rosa Baum LPN ----- Message from Erlinda Zelaya APRN.TOBACCO PACKING MACHINE OPERATOR sent at 05/10/2021 1:35 PM EDT ----- Please advise patient his US was normal. Follow instructions given by provider at visit, f/u with PCP if symptoms persist or worsen. Erlinda Zelaya APRN.TOBACCO PACKING MACHINE OPERATOR documented in this encounter [facility] 05-09-2021 Miscellaneous Notes I called and spoke with patient regarding negative US and femur xray results. Recommended aleve otc as well as tylenol. Rest, ice. Follow up with Dr Caceres. Patient agreeable with this plan. documented in this encounter [facility] 05-09-2021 History of Presen t illness Narrative [...] 2021 3:59 PM documented in this encounter [facility] 05-09-2021 History of Presen t illness Narrative [...] Current Outpatient Medications Medication Sig Dispense Refill Salluneefsjwfwp-Wfsggujql-TH (BROMFED DM) 2-30-10 mg/5 mL syrup Take [...] ordered. Patient will have these completed at [facility]. Patient at risk for tendon rupture due to being on levaquin recently for his foot wound. No obvious weakness on exam. Will rule out dvt as well. Will call on results. - US LEG VEIN DVT UNL VAS LAB - XR FEMUR GENERAL 2V AP/LAT RIGHT Sri Robbins PA-C documented in this encounter [facility] Evaluation + Plan note No data available for this section [facility] Diagnosis Right leg pain Pain in limb [facility] Diagnosis Hamstring strain, right, subsequent encounter- Primary [facility] Diagnosis Hamstring strain, right, subsequent encounter- Primary [facility] Diagnosis Hamstring strain, right, subsequent encounter- Primary [facility] Diagnosis Dietary counseling- Primary Dietary surveillance and counseling Morbid obesity (HCC) Morbid obesity Prediabetes Other abnormal glucose BMI 50.0-59.9, adult (HCC) Body Mass Index 50.0-59.9, adult [facility] Diagnosis Scrotal abscess Other inflammatory disorder of male genital organs [facility] Diagnosis Acute non-recurrent pansinusitis- Primary Acute cough [facility] Diagnosis Cellulitis of left foot- Primary Cellulitis and abscess of foot, except toes documented in this encounter [facility] for referral (narrative)* Diagnostic Procedure Only (Urgent) - Closed Specialty Diagnoses / Procedures Referred By Laureen t Referred To Contact XR IMAGING Diagnoses Right leg pain Procedures XR FEMUR GENERAL 2V AP/LAT RIGHT RADIOLOGIC EXAMINATION FEMUR MINIMUM 2 VIEWS Sri Robbins PA-C [address] [place] [address] Xr Imaging Referral ID Status Reason Start Date Expiration Date V isits Requested Visits Authorized [id number] Closed Auto-Generate d Referral 05/09/2021 06/08/2022 1 1 * Outpatient Procedure (Urgent) - Closed Specialty Diagnoses / Procedures Referred By Contac t [facility] To [facility] Diagnoses Right leg pain Procedures US LEG VEIN DVT UNL VAS LAB DUP-SCAN XTR VEINS UNILATERAL/LIMITED STUDY Sri Robbnis PA-C [address] [place] [address] [facility] [place] [address] [place] [address] Referral ID Status Reason Start Date Expiration Date V isits Requested Visits Authorized [id number] Closed Auto-Generate d Referral 05/09/2021 05/09/2022 1 1 [facility] for referral (narrative)* Diagnostic Procedure Only (Urgent) - Closed Specialty Diagnoses / Procedures Referred By Contac t Referred To Contact XR IMAGING Diagnoses Right leg pain Procedures XR FEMUR GENERAL 2V AP/LAT RIGHT RADIOLOGIC EXAMINATION FEMUR MINIMUM 2 VIEWS Sri Robbins PA-C [address] [place] [address] Xr Imaging Referral ID Status Reason Start Date Expiration Date V isits Requested Visits Authorized [id number] Closed Auto-Generate d Referral 05/09/2021 06/08/2022 1 1 [facility] for visit Narrative* Diagnostic Procedure Only (Urgent) - Closed Specialty Diagnoses / Procedures Referred By Contac t Referred To Contact XR IMAGING Diagnoses Right leg pain Procedures XR FEMUR GENERAL 2V AP/LAT RIGHT RADIOLOGIC EXAMINATION FEMUR MINIMUM 2 VIEWS Sri Robbins PA-C [address] [place] [address] Xr Imaging Referral ID Status Reason Start Date Expiration Date V isits Requested Visits Authorized [id number] Closed Auto-Generate d Referral 05/09/2021 06/08/2022 1 1 [facility] Summary Purpose Family History No Family History [...] 45 MINS Kali Caceres V, DO [address] [place] [address] [facility] [place] [address] [place] [address] Referral ID Status Reason Start Date Expiration Date Visits Requested Visits Authorized [id number] Authorized Auto-Generat ed Referral 02/17/2021 02/16/2022 30 30 Additional Source Comments (unrecognized sect ion and content) No Status Records FoundNo Status Records FoundNo Status Records FoundNo Status Records Found INFORMATION SOURCE (unrecogn ized section and content) DATE CREATED AUTHOR AUTHOR'S ORGANIZ ATION 02/16/2020 [facility] DATE CREATED AUTHOR AUTHOR'S ORGANIZ ATION 09/23/2022 [facility] ([place]) DATE CREATED AUTHOR AUTHOR'S ORGANIZ ATION 02/03/2023 [facility] Source Comments (unrecognize d section and content) In the event this informatio n is protected by the Federal Confidentiality of Alcohol and Drug Abuse Patient Records regulations: The Federal rules restrict any use of the information to criminally investigate or prosecute any alcohol or drug abuse patient.[facility] the event this information is protected by the Federal Confidentiality of Alcohol and Drug Abuse Patient Records regulations: The Federal rules restrict any use of the information to criminally investigate or prosecute any alcohol or drug abuse patient.[facility] the event this information is protected by the Federal Confidentiality of Alcohol and Drug Abuse Patient Records regulations: The Federal rules restrict any use of the information to criminally investigate or prosecute any alcohol or drug abuse patient.[facility] the event this information is protected by the Federal Confidentiality of Alcohol and Drug Abuse Patient Records regulations: The Federal rules restrict any use of the information to criminally investigate or prosecute any alcohol or drug abuse patient.[facility] the event this information is protected by the Federal Confidentiality of Alcohol and Drug Abuse Patient Records regulations: The Federal rules restrict any use of the information to criminally investigate or prosecute any alcohol or drug abuse patient.[facility] the event this information is protected by the Federal Confidentiality of Alcohol and Drug Abuse Patient Records regulations: The Federal rules restrict any use of the information to criminally investigate or prosecute any alcohol or drug abuse patient.[facility] the event this information is protected by the Federal Confidentiality of Alcohol and Drug Abuse Patient Records regulations: The Federal rules restrict any use of the information to criminally investigate or prosecute any alcohol or drug abuse patient.[facility] the event this information is protected by the Federal Confidentiality of Alcohol and Drug Abuse Patient Records regulations: The Federal rules restrict any use of the information to criminally investigate or prosecute any alcohol or drug abuse patient.[facility] the event this information is protected by the Federal Confidentiality of Alcohol and Drug Abuse Patient Records regulations: The Federal rules restrict any use of the information to criminally investigate or prosecute any alcohol or drug abuse patient.[facility] the event this information is protected by the Federal Confidentiality of Alcohol and Drug Abuse Patient Records regulations: The Federal rules restrict any use of the information to criminally investigate or prosecute any alcohol or drug abuse patient.[facility] the event this information is protected by the Federal Confidentiality of Alcohol and Drug Abuse Patient Records regulations: The Federal rules restrict any use of the information to criminally investigate or prosecute any alcohol or drug abuse patient.[facility] the event this information is protected by the Federal Confidentiality of Alcohol and Drug Abuse Patient Records regulations: The Federal rules restrict any use of the information to criminally investigate or prosecute any alcohol or drug abuse patient.[facility] the event this information is protected by the Federal Confidentiality of Alcohol and Drug Abuse Patient Records regulations: The Federal rules restrict any use of the information to criminally investigate or prosecute any alcohol or drug abuse patient.[facility] Reason for Visit (unrecogniz ed section and content) Specialty Diagnoses / Procedures Referred By Contac t Referred To Contact [facility] Diagnoses Hamstring strain, right, subsequent encounter Procedures CONSULT TO PHYSICAL THERAPY PHYSICAL THERAPY EVALUATION HIGH COMPLEX 45 MINS Kali Caceres V, [address] [place] [address] [facility] [place] [address] [place] [address] Referral ID Status Reason Start Date Expiration Date Visits Requested Visits Authorized [id number] Authorized Auto-Generat ed Referral 02/17/2021 02/16/2022 30 [...] Prediabetes Procedures CONSULT TO NUTRITION THERAPY OFFICE/OUTPATIENT [facility] 60-74 MINUTES Rory Smith MD [address] [place] [address] Referral ID Status Reason Start Date Expiration Date V isits Requested Visits Authorized [id number] Closed PCP Requested Referral 06/01/2021 06/01/2022 1 1 Reason Comments Consult Lump on scrotum Specialty Diagnoses / Procedures Referred By Contac t Referred To Contact Urology Diagnoses Scrotal abscess Procedures CONSULT TO UROLOGY OFFICE/OUTPATIENT [facility] MDM 60-74 MINUTES Vern Parker APRN.CNP [address] [place] [address] Referral ID Status Reason Start Date Expiration Date V isits Requested Visits Authorized [id number] Closed PCP Requested Referral 10/11/2021 10/11/2022 1 1 Reason Comments Cough Pt reported intermit tent throat pain with coughing rated 3, x1 wk. Reason Comments Infection 2nd toe on left food Care Teams (unrecognized sec tion and content) Clerk Of Court Relationship Specialty Start Date End Date Rory Smith MD [address] [facility] [place] [address] PCP - [facility] Practice 02/26/[address] Relationship Specialty Start Date End Date Rory Smith MD [address] [place] [address] PCP - General Family Practice 02/26/[address] Relationship Specialty Start Date End Date Rory Smith MD [address] [place] [place] [address] PCP - [facility] Practice 02/26/[address] Relationship Specialty Start Date End Date Rory Smith MD [address] [place] [address] PCP - [facility] 02/26/[address] Relationship Specialty Start Date End Date Rory Smith MD [address] [place] [place] [address] PCP - [facility] Practice 02/26/[address] Relationship Specialty Start Date End Date Rory Smith MD [address] [place] [address] PCP - [facility] Family Practice 02/26/21 05/31/[address] Relationship Specialty Start Date End Date Licha Brar MD [address] [facility] [address] [place] [id number] PCP - General Internal Medicine 02/01/23 FOR [...] BE BASED ON THE PRIMARY CLINICAL RECORDS. [facility] Patient Communicator [facility]. provides no warranty or guarantee of the accuracy or completeness of information in this document.
--- NOTE | 2023-02-24 15:22 | PCM.RX.CS ---
Consult Antibiotic Management Pharmacy has been consulted to manage selected antibiotic: Vancomycin Type of Intervention Type of Consult: New start Suspected Infection Suspected Infection: Osteomyelitis Prior Doses of Antibiotics Prior Doses of Antibiotics Received/Current Regimen: Given loading dose of 2000mg x 1 on 02.24.23 @1407. Labs Labs: Sodium 136 mmol/L (136-145) 02/24/23 13:15 Potassium 3.8 mmol/L (3.5-5.1) 02/24/23 13:15 Chloride 104 mmol/L (98-107) 02/24/23 13:15 Carbon Dioxide 27.0 mmol/L (21.0-32.0) 02/24/23 13:15 Anion Gap 5 (5-15) 02/24/23 13:15 BUN 16 mg/dL (7-18) 02/24/23 13:15 Creatinine 0.87 mg/dL (0.70-1.30) 02/24/23 13:15 Est GFR (MDRD) Af Amer 121 mL/min (>60) 02/24/23 13:15 Est GFR (MDRD) Non-Af 100 mL/min (>60) 02/24/23 13:15 BUN/Creatinine Ratio 18.4 RATIO (10-20) 02/24/23 13:15 Glucose 302 mg/dL (74-106) H 02/24/23 13:15 Dosing Weight Weight used for dosin.4 kg Estimated Creatinine Clearance Estimated Creatinine Clearance: >100ml/min Goal Trough Goal Trough: 15-20 mcg/mL Pharmacy Plan for Drug Dosing Pharmacy Plan for Drug Dosing: Recommend regimen of 1500mg iv q8h beginning 8hrs after 2000mg loading dose. Trough level before 4th total dose on 02.25.23. Pharmacy Service will continue to monitor and adjust dosing as required. Follow-Up Labs Follow-Up Labs: Trough: Vancomycin (02.25.23 @1330 before 1400 dose)
--- NOTE | 2023-02-24 17:26 | PN.HOSP_ITS ---
Subjective Subjective The patient is a 47 y/o M w/ PMHx: Morbid obesity, Diabetes mellitus type II with chronic neuropathy uncontrolled not on regimen with last HgbA1c noted 04/27/21 6.4%, Former Tobacco use w/ hx right foot third toe subcutaneous tissue ulcer, hallux varus and 2-5 hammertoes with several prior interventions with Dr. Benites specifically most recently noted arthroplasty of the right first metatarsal phalangeal joint, arthrodesis 2-4 toes, arthroplasty fifth toe with history of recently trimming his left second toenail with wound following which worsened with 02/01/2023 ED visits secondary to appearance with initiation of ciprofloxacin and doxycycline at that time with some improvement however upon reevaluation in the office with podiatry 02/24/2023 they were concerned for possible osteomyelitis and therefore admitted for further evaluation. Patient denies any recent fevers with onset of the distal toe wound but notes increased fatigue and malaise associated. Patient currently eating and denies any acute complaints. Lengthy discussion had regarding patient's blood sugars and diabetes situation in regard to chronic wounds and wound healing. Patient denies fevers, chills, nausea, emesis, abdominal pain, chest pain or dyspnea. Objective Data Objective Data Vital Signs: Vital Signs Temp Pulse Resp BP Pulse Ox O2 Del Method 98 F 96 18 131/78 H 98 Room Air 02/24/23 13:16 02/24/23 13:16 02/24/23 13:16 02/24/23 13:16 02/24/23 13:16 02/24/23 13:16 Oxygen Delivery Method Room Air Weight: 318 lb 6.4 oz Body Mass Index (BMI) 39.8 Intake & Output: Intake and Output for Last 24 Hours 02/22/23 02/23/23 02/24/23 23:59 23:59 23:59 Intake Total 155.21 / 155.21 Balance 155.21 / 155.21 Lab / Micro Data 02/24/23 13:15 02/24/23 13:15 Labs: Laboratory Results - last 24 hr 02/24/23 13:15: WBC 8.8, RBC 5.35, Hgb 15.3, Hct 44.9, MCV 83.9, MCH 28.6, MCHC 34.1, RDW Std Deviation 40.3, RDW Coeff of Gabriella 13.3, Plt Count 183, MPV 9.5, Immature Gran % (Auto) 0.300, Neut % (Auto) 63.0, Lymph % (Auto) 28.7, [place] % (Auto) 5.7, Eos % (Auto) 1.8, Baso % (Auto) 0.5, Absolute Neuts (auto) 5.6, Absolute Lymphs (auto) 2.53, Nucleated RBC % 0, ESR 11, Sodium 136, Potassium 3.8, Chloride 104, Carbon Dioxide 27.0, Anion Gap 5, BUN 16, Creatinine 0.87, Estim Creat Clear Calc 125.45, Est GFR (MDRD) Af Amer 121, Est GFR (MDRD) Non-Af 100, BUN/Creatinine Ratio 18.4, Glucose 302 H, Calcium 8.5, Total Bilirubin 0.70, AST 13 L, ALT 32, Alkaline Phosphatase 86, C-React Prot Ext Range 5.19 H, Total Protein 6.3 L, Albumin 3.3, Globulin 3.0, Albumin/Globulin Ratio 1.1 Physical Exam Narrative Physical Examination: General: Awake, alert, oriented x 3 and cooperative, seated upright in MS bed, no acute distress, eating. Skin: Normal color, normal turgor, no icterus, no cyanosis except for noted ulceration to the distal second toe with periwound erythema. HEENT: AT/NC, EOMI, PERRLA, MMM. Lungs: CTA bilaterally, moderate effort, mild decrease BL bases, no rales, ronchi or wheezing. Heart: Regular rate and rhythm; no gallop, rub audible. Abdomen: Soft, morbidly obese, NTTP, mildly hyperactive bowel sounds, difficult to assess distention and HSM given habitus. Extremities: No cyanosis, no clubbing, no significant peripheral pitting edema, see skin. Neurological: Patient awake, alert, oriented as noted, cognitive function intact; pupils equally reactive to light and accommodation, cranial nerves grossly normal, moving all 4 extremities, no focal deficits, strength mildly to moderately global decrease secondary to acute presentation, mildly decreased sensation to bilateral lower distal peripheral extremities which from discussions is likely chronic. Psychiatric: Affect appears normal, no acute evidence of depressive or anxiety feelings. Assessment & Plan Assessment/Plan (1) Acute osteomyelitis of toe of left foot: PLAN: Plan The patient is a 47 y/o M w/ PMHx: Morbid obesity, Diabetes mellitus type II with chronic neuropathy uncontrolled not on regimen with last HgbA1c noted 04/27/21 6.4%, Former Tobacco use w/ hx right foot third toe subcutaneous tissue ulcer, hallux varus and 2-5 hammertoes with several prior interventions with Dr. Benites group unfortunately trimming his left second toenail with unfortunately wound following which worsened with 02/01/2023 ED visits secondary to appearance with initiation of ciprofloxacin and doxycycline at that time with some improvement however upon reevaluation in the office with podiatry 02/24/2023 they were concerned for possible osteomyelitis and therefore admitted for further evaluation. #1. Left Second toe Acutely Infected Diabetic Wound with Suspected Acute Osteomyelitis: Directly admitted per podiatry, MRI of the foot being obtained but no formal read as of yet but likely osteomyelitis per discussion with podiatry, ESR normal however CRP mildly elevated, may change on IV vancomycin and IV Zosyn therapy, infectious disease consulted as well, likely plan for OR in a.m. per discussion with podiatry, continue affected extremity elevation above heart when seated and in bed, monitor erythema outline, wound RN consultation per podiatry discretion, offloading/weightbearing per podiatry discretion. #2. Diabetes mellitus type II, poorly controlled: Last hemoglobin A1c noted 04/27/2021 6.4% and patient per report does not begin any regimen thus suspect it is further elevated with significant hyperglycemia currently, will add low-dose twice daily glargine 5 units and will continue with overlapping insulin sliding scale, repeat hemoglobin A1c requested and pending, will continue ADA diet, accu checks w/ ISS, nutrition consulted for education and teaching. #3. Morbid Obesity: Weight loss and lifestyle changes encouraged, nutrition consulted. #4. DVT prophylaxis: SCDs, chemoprophylaxis per surgery discretion given planned likely OR in AM. Charges/Coding Visit Charges Inpatient E&M: 43954 Subs Hosp L3
[2023-02-24 17:46] VITALS: O2SAT 98
[2023-02-24 17:46] LABS: Magnesium 1.8 mg/dL (1.6-2.6)
[2023-02-24 17:58] LABS: Hemoglobin A1c 8.8 % (3.8-5.6)
[2023-02-24 18:05] VITALS: RESP 18
--- NOTE | 2023-02-24 18:19 | PCM.HP.STD ---
HPI - General General Date of Admission: 02/24/23 Date of Service: 02/24/23 Chief Complaint: Left 2nd toe infection HPI Narrative DANIELLE DUMAS, is a 47 M who presents from my office for admission due to left 2nd toe infection with osteomyelitis. He relates he trimmed his toenail to short several weeks ago - toe got really red and swollen, he went to urgent care and they sent him to the ER. He was prescribed Cipro and Doxycycline. He relates he took the antibiotics which helped some but there is still redness and swelling to the toe. There is an ulcer to the tip of the toe. He does not have pain, he does have peripheral neuropathy. He has been ambulating on foot. He relates he feels tired. Xrays in office of his left foot did show erosion of the distal aspect of the distal phalanx of the 2nd toe. He was admitted for further workup and management. [facility] Medical History COVID-19 Former smoker Hyperglycemia Morbid obesity Non-pressure chronic ulcer of other part of left foot with fat layer exposed Right foot infection Home Medications sulfamethoxazole 800 mg-trimethoprim 160 mg tablet (Bactrim DS) 1 tab PO Q12H #10 tabs 08/11/22 [Rx Last Taken Unknown] ciprofloxacin HCl 500 mg tablet (Cipro) 500 mg PO BID #14 tabs 02/01/23 [Rx Last Taken Unknown] doxycycline monohydrate 100 mg capsule 100 mg PO BID #14 CAPSULES 02/01/23 [Rx Last Taken Unknown] Allergy/AdvReac Type Severity Reaction Status Date / Time No Known Allergies Allergy Verified 02/01/23 15:35 Family History Father Colon cancer Diabetes Skin cancer Mother Hypertension Surgical History History of ankle surgery History of tonsillectomy Hx of foot surgery Social History Smoking Status: Never smoker Smokeless tobacco user: chewing tobacco alcohol intake: current alcohol intake frequency: holidays/special occasions only substance use type: does not use frequency: 1-2 times per week Vital Signs Vital Signs Vital Signs: 02/24/23 13:02 02/24/23 12:05 02/24/23 13:16 Temperature 98 F 98 F Temperature Source Oral Oral Pulse Rate 96 96 Respiratory Rate 18 18 18 Blood Pressure 131/78 H 131/78 H Blood Pressure Mean 95 95 Blood Pressure Source Monitor Blood Pressure Position Semi-Fowlers Blood Pressure Location Right Arm Pulse Ox 98 98 Oxygen Delivery Method Room Air Room Air Room Air 02/24/23 17:46 Temperature Temperature Source Pulse Rate Respiratory Rate Blood Pressure Blood Pressure Mean Blood Pressure Source Blood Pressure Position Blood Pressure Location Pulse Ox 98 Oxygen Delivery Method Room Air Weight Weight: 144.424 kg Body Mass Index (BMI) 39.8 Physical Exam Narrative Left foot - there is ulceration to the distal 2nd toe probes close to bone, there is erythema and edema to the toe - worse at distal aspect, there is serous drainage from the ulcer, margins are viable, there is some granular tissue in the wound but also some nonviable tissue, there is no other wounds or erythema or edema to the left foot, ankle or leg. No crepitus, no fluctuance, no visible abscess to the left foot, ankle or leg. DP and PT pulses palpable left with CFT < 2 sec to all toes, there is decreased sensation to touch to the left foot. Left 2nd toe is elongated with some hammer toe contracture as well. The other lesser toes also with hammer toe contracture on the left foot. Right foot with no open lesions, no evidence of infection, no ischemia at this time. Const alert, oriented x3 and no apparent distress Results Lab / Micro Data 02/24/23 13:15 02/24/23 13:15 Labs: Laboratory Results - last 24 hr 02/24/23 13:15: WBC 8.8, RBC 5.35, Hgb 15.3, Hct 44.9, MCV 83.9, MCH 28.6, MCHC 34.1, RDW Std Deviation 40.3, RDW Coeff of Gabriella 13.3, Plt Count 183, MPV 9.5, Immature Gran % (Auto) 0.300, Neut % (Auto) 63.0, Lymph % (Auto) 28.7, [place] % (Auto) 5.7, Eos % (Auto) 1.8, Baso % (Auto) 0.5, Absolute Neuts (auto) 5.6, Absolute Lymphs (auto) 2.53, Nucleated RBC % 0, ESR 11, Sodium 136, Potassium 3.8, Chloride 104, Carbon Dioxide 27.0, Anion Gap 5, BUN 16, Creatinine 0.87, Estim Creat Clear Calc 125.45, Est GFR (MDRD) Af Amer 121, Est GFR (MDRD) Non-Af 100, BUN/Creatinine Ratio 18.4, Glucose 302 H, Hemoglobin A1c 8.8 H, Calcium 8.5, Magnesium 1.8, Total Bilirubin 0.70, AST 13 L, ALT 32, Alkaline Phosphatase 86, C-React Prot Ext Range 5.19 H, Total Protein 6.3 L, Albumin 3.3, Globulin 3.0, Albumin/Globulin Ratio 1.1 Imagaing Radiology Impression Lower Extremity MRI 02/24/23 12:21 IMPRESSION: Osteomyelitis of the second distal phalanx. Arthritic change of the first and second MTP joints. Electronically Signed: Leodan Travis MD at 18:07 EST , Assessment & Plan Assessment/Plan (1) Acute osteomyelitis of toe of left foot: (2) Type 2 diabetes mellitus with diabetic polyneuropathy: QUALIFIERS: Diabetes mellitus mcc insulin use: unspecified membership coordinator insulin use status Qualified Code(s): E11.42 - Type 2 diabetes mellitus with diabetic polyneuropathy (3) Non-pressure chronic ulcer of other part of left foot with fat layer exposed: PLAN: Plan Evaluation preformed. Reviewed diagnostic data. MRI reviewed and findings c/w osteomyelitis to the left 2nd toe distal phalanx. A culture has been obtained, he has been started on Vanc and Zosyn, ID service has been consulted. Discussed options with patient - amputation vs antibiotics and trying to save toe - reviewed possible benefits vs risks - he is thinking about options at this time. Patient noted to have elevated blood sugar - Hospitalist consulted. Discussed with Dr. Manley, appreciate assistance. Wound care left 2nd toe - betadine soln and gauze dressing change. Keep offloaded at all times. Possible surgery tomorrow on left 2nd toe pending patient's decision.
[2023-02-24 18:39] VITALS: BP 123/78; PULSE 92; RESP 18; TEMP 36.9; O2SAT 98
[2023-02-24 19:20] LABS: M R Staph aureus DNA By PCR Negative (Negative); Probe Check PASS; Specimen Processing Control PASS; Staph aureus DNA By PCR NEGATIVE (Negative)
[2023-02-24] MEDS: Vancomycin HCl 1,500 MG in 0.9% Normal Saline (500mL Bag) 500 ML 250 MG IV (22:23)
[2023-02-24] MEDS: Insulin Lispro 100 UNIT/ML INSULN.PEN SC (22:24)
[2023-02-24] MEDS: Insulin Glargine-YFGN 100 UNIT/ML Pen SC (22:24)
[2023-02-24 23:04] LABS: Bedside Glucose 325 mg/dL (74-106)
[2023-02-24] MEDS: Acetaminophen 325 MG Tablet 650 MG PO (23:39)
[2023-02-25] VITALS (10 sets, daily range): BP systolic 112–144; BP diastolic 72–100; PULSE 79–90; RESP 16–18; TEMP 36.2–37; O2SAT 94–99; BMI 39.8
[2023-02-25] MEDS: Vancomycin HCl 1,500 MG in 0.9% Normal Saline (500mL Bag) 500 ML 250 MG IV (06:21)
[2023-02-25] MEDS: Piperacil/Tazobactam 3.375 GM in 0.9% Normal Saline (50mL MB+) 50 ML IV ×3 (06:25→21:12)
[2023-02-25] MEDS: Insulin Lispro 100 UNIT/ML INSULN.PEN SC ×4 (06:29→21:12)
[2023-02-25 06:55] LABS: Bedside Glucose 302 mg/dL (74-106)
--- NOTE | 2023-02-25 08:30 | WOUNDNOTE ---
Pt is going to surgery today so will leave dressing in place.
[2023-02-25] MEDS: Insulin Glargine-YFGN 100 UNIT/ML Pen SC (09:58)
--- NOTE | 2023-02-25 10:42 | PN.HOSP_ITS ---
Reason for Visit Reason for Visit: Diagnoses Type 2 diabetes mellitus with diabetic polyneuropathy (02/25/23) Non-pressure chronic ulcer of other part of left foot with fat layer exposed (02/25/23) Other acute osteomyelitis, left ankle and foot (02/25/23) Objective Data Objective Data Vital Signs: Vital Signs Temp Pulse Resp BP Pulse Ox O2 Del Method 97.8 F 85 18 122/77 H 99 Room Air 02/25/23 09:47 02/25/23 09:47 02/25/23 09:47 02/25/23 09:47 02/25/23 09:47 02/25/23 09:47 Oxygen Delivery Method Room Air Weight: 318 lb 6.4 oz Body Mass Index (BMI) 39.8 Intake & Output: Intake and Output for Last 24 Hours 02/23/23 02/24/23 02/25/23 23:59 23:59 23:59 Intake Total 1440.00 / 1840.00 980 / 980 Balance 1440.00 / 1840.00 980 / 980 Lab / Micro Data 02/24/23 13:15 02/25/23 13:25 Labs: Laboratory Results - last 24 hr 02/24/23 09:30: S.aureus Protein A PCR NEGATIVE, MRSA (PCR) Negative 02/24/23 13:15: WBC 8.8, RBC 5.35, Hgb 15.3, Hct 44.9, MCV 83.9, MCH 28.6, MCHC 34.1, RDW Std Deviation 40.3, RDW Coeff of Gabriella 13.3, Plt Count 183, MPV 9.5, Immature Gran % (Auto) 0.300, Neut % (Auto) 63.0, Lymph % (Auto) 28.7, [place] % (Auto) 5.7, Eos % (Auto) 1.8, Baso % (Auto) 0.5, Absolute Neuts (auto) 5.6, Absolute Lymphs (auto) 2.53, Nucleated RBC % 0, ESR 11, Sodium 136, Potassium 3.8, Chloride 104, Carbon Dioxide 27.0, Anion Gap 5, BUN 16, Creatinine 0.87, Estim Creat Clear Calc 125.45, Est GFR (MDRD) Af Amer 121, Est GFR (MDRD) Non-Af 100, BUN/Creatinine Ratio 18.4, Glucose 302 H, Hemoglobin A1c 8.8 H, Calcium 8.5, Magnesium 1.8, Total Bilirubin 0.70, AST 13 L, ALT 32, Alkaline Phosphatase 86, C-React Prot Ext Range 5.19 H, Total Protein 6.3 L, Albumin 3.3, Globulin 3.0, Albumin/Globulin Ratio 1.1 02/24/23 22:17: POC Glucose 325 H 02/25/23 06:28: POC Glucose 302 H Micro: Microbiology 02/24/23 09:30 Wound - Toe Gram Stain - Final 02/24/23 09:30 Wound - Toe Wound Culture - Preliminary Beta streptococcus Radiography Diagnostic Testing: Radiology Impression Lower Extremity MRI 02/24/23 12:21 IMPRESSION: Osteomyelitis of the second distal phalanx. Arthritic change of the first and second MTP joints. Electronically Signed: Leodan Travis MD at 18:07 EST Reading Location ID and State: [id number] [place] [address] , Service support , Physical Exam Narrative Seen and examined. Patient admitted with left 2nd toe chronic ulcer. Osteomyelitis. Patient is diabetic with high A1c. Physical exam General: Alert, Oriented x3, Cooperative. Morbid obesity BMI 39.8 kg/m? HEENT: Atraumatic, PERRLA, EOMI, Normocephalic Oral: No Gingival or Mucosal Lesions/ Ulcerations Neck: Supple, No JVD, Negative Carotid Bruits Lungs: Air entry diminished in bilateral lung bases. No crepitation/rhonchi Cardiovascular: Regular rate, Regular Rhythm, Normal S1, Normal S2, No murmurs Abdomen: Bowel Sounds Present, Soft, Non Tender, Non-Distended : No renal angle tenderness. No suprapubic tenderness. Extremities: No edema, Capillary Refill Less than 3 Seconds Skin: Left 2nd toe, tip has ulcer. Nonhealing. Musculoskeletal: No Tenderness to Palpation of Joints or Extremities Neurological: Cranial nerves II-XII grossly intact, DTR 2+/4. No acute focal neurological deficit. Psych/Mental Status: Normal Affect, Appropriate. Assessment & Plan Assessment/Plan (1) Acute osteomyelitis of toe of left foot: PLAN: Plan The patient is a 47 y/o M is being admitted for left third toe pain for 2 to 3 days with radiation up to tibial region. History of surgery on the foot by Dr. Benites in the past. Denies fever. Denies new trauma. Patient also has ch ronic ankle pain and swelling because history of ankle surgery in the past. #1. Left Second toe Acutely Infected Diabetic Wound with Suspected Acute Osteomyelitis: Directly admitted per podiatry. Preliminary wound culture shows beta Streptococcus 1+. MRI foot shows osteomyelitis of second distal phalanx. Marrow edema of the distal phalanx of second toe. CRP mildly elevated although ESR normal. Currently on empiric vancomycin and Zosyn. Patient had a course of Cipro and Doxy few weeks ago. ID was consulted. Patient had partial left second toe amputation on 02/25/2023. Will wait for tissue/operative culture. #2. Diabetes mellitus type II, poorly controlled: A1c 8.8%. Last hemoglobin A1c 04/27/2021 6.4%. 02/26 glucose is high between 250-325. Patient is started on Humalog insulin and Lantus insulin. Monitor Accu-Cheks and needs further adjustment. #3. Morbid Obesity: Weight loss and lifestyle changes encouraged, nutrition consulted. #4. DVT prophylaxis: SCDs, DVT prophylaxis. Microbiology Past 72 Hours 02/24/23 09:30 Wound - Toe Gram Stain - Final 02/24/23 09:30 Wound - Toe Wound Culture - Preliminary Beta streptococcus Laboratory Results 02/24/23 09:30: S.aureus Protein A PCR NEGATIVE, MRSA (PCR) Negative 02/24/23 13:15: Hemoglobin A1c 8.8 H, Magnesium 1.8 02/24/23 22:17: POC Glucose 325 H 02/25/23 06:28: POC Glucose 302 H 02/25/23 11:54: POC Glucose 232 H 02/25/23 13:25: Creatinine 0.68 L, Estim Creat Clear Calc 206.04, Est GFR (MDRD) Af Amer 162, Est GFR (MDRD) Non-Af 134, Vancomycin Trough 12.2 Charges/Coding Visit Charges Inpatient E&M: 07997 Subs Hosp L2
--- NOTE | 2023-02-25 10:47 | CON.PCM.ID_ITS ---
Assessment & Plan Assessment/Plan (1) Acute osteomyelitis of toe of left foot: PLAN: Course of cipro/doxy a few weeks ago. OR planned. On empiric vanc/zosyn. Will follow, thank you (2) Type 2 diabetes mellitus with diabetic polyneuropathy: QUALIFIERS: Diabetes mellitus director long term care insulin use: unspecified senior living insulin use status Qualified Code(s): E11.42 - Type 2 diabetes mellitus with diabetic polyneuropathy HPI Consult Data Date of Consult: 02/25/23 HPI Narrative Reason for Consultation: osteo HPI Narrative: DANIELLE DUMAS, is a 47 M with DM neuropathy, trimmed callus on L 2nd toe around 01/28/23 Developed swelling, redness, mild pain, fever, chills. Went to [facility] ED 02/01, sent home with cipro and doxy which helped his symptoms some. Toe did not return to normal, saw Dr. Benites 02/24/23, sent to ED, admitted on vanc/zosyn. OR planned. Full ROS performed and neg except as noted above. [facility] Medical History COVID-19 Former smoker Hyperglycemia Morbid obesity Non-pressure chronic ulcer of other part of left foot with fat layer exposed Right foot infection Home Medications alfuzosin 10 mg tablet,extended release 24 hr 10 mg PO DAILY 02/24/23 [History Last Taken 02/23/23 22:00] Allergy/AdvReac Type Severity Reaction Status Date / Time No Known Allergies Allergy Verified 02/01/23 15:35 Family History Father Colon cancer Diabetes Skin cancer Mother Hypertension Surgical History History of ankle surgery History of tonsillectomy Hx of foot surgery Social History Smoking Status: Never smoker Smokeless tobacco user: chewing tobacco alcohol intake: current alcohol intake frequency: holidays/special occasions only substance use type: does not use frequency: 1-2 times per week Physical Exam Const alert, oriented x3 and no apparent distress General Appearance: cooperative HEENT normocephalic and head/scalp atraumatic Eyes PERRL and EOMs intact bilaterally Neck supple and No nodes Resp normal air movement and clear to auscultation bilaterally Cardio regular rate and regular rhythm GI soft to palpation, non-tender and non-distended Extremity General Extremity: edema Skin Skin Narrative: L foot wrapped Neuro CN's II-XII intact bilaterally Lab / Micro Data Attestation: I reviewed the patient's lab results. 02/24/23 13:15 02/24/23 13:15 Labs: Laboratory Results - last 24 hr 02/24/23 09:30: S.aureus Protein A PCR NEGATIVE, MRSA (PCR) Negative 02/24/23 13:15: WBC 8.8, RBC 5.35, Hgb 15.3, Hct 44.9, MCV 83.9, MCH 28.6, MCHC 34.1, RDW Std Deviation 40.3, RDW Coeff of Gabriella 13.3, Plt Count 183, MPV 9.5, Immature Gran % (Auto) 0.300, Neut % (Auto) 63.0, Lymph % (Auto) 28.7, [place] % (Auto) 5.7, Eos % (Auto) 1.8, Baso % (Auto) 0.5, Absolute Neuts (auto) 5.6, Absolute Lymphs (auto) 2.53, Nucleated RBC % 0, ESR 11, Sodium 136, Potassium 3.8, Chloride 104, Carbon Dioxide 27.0, Anion Gap 5, BUN 16, Creatinine 0.87, Estim Creat Clear Calc 125.45, Est GFR (MDRD) Af Amer 121, Est GFR (MDRD) Non-Af 100, BUN/Creatinine Ratio 18.4, Glucose 302 H, Hemoglobin A1c 8.8 H, Calcium 8.5, Magnesium 1.8, Total Bilirubin 0.70, AST 13 L, ALT 32, Alkaline Phosphatase 86, C-React Prot Ext Range 5.19 H, Total Protein 6.3 L, Albumin 3.3, Globulin 3.0, Albumin/Globulin Ratio 1.1 02/24/23 22:17: POC Glucose 325 H 02/25/23 06:28: POC Glucose 302 H Micro: Microbiology 02/24/23 09:30 Wound - Toe Gram Stain - Final 02/24/23 09:30 Wound - Toe Wound Culture - Preliminary Beta streptococcus Imagaing Radiology Impression Lower Extremity MRI 01/08/24 12:21 IMPRESSION: Osteomyelitis of the second distal phalanx. Arthritic change of the first and second MTP joints. Electronically Signed: Leodan Travis MD at 18:07 EST ,
--- NOTE | 2023-02-25 12:15 | CASEMGMT ---
NARENDRA CROWE Assessment: Face to Face with pt for initial transition planning/care coordination assessment. RN AMRITA introduced self and role at [facility], pt voices understanding and consents to assessment. Pt is A&O x4 and answers all questions appropriately at this time. Pt sitting up in chair with friend at bedside. Pt agreeable to assessment with friend present. Care providers, pharmacy, and demographics verified/updated. Admitting Dx:L second toe osteomyelitis PCP:Maykel Specialists:junior Benites Pharmacy:[facility] Insurance:[facility] Prescription Benefit: yes LNOK:Candice Chino, ; Janell/Joss Chino, parents Living Arrangements: Pt lives with in a two story home with 10 steps to enter with a rail. Pt reports he was I in ADL's and denies concerns at home. Transportation: Pt drives self and denies concerns with transportation. DME:Denies. Pt will need BGM rx at dc. Asked pt if he would like rx ahead of time for a family member to obtain BGM so nursing could perform teaching on this, he states his is diabetic and he will be fine in using BGM. HHC/SNF:Pt has had HHC in the past but cannot recall the name of the agency. Pt denies SNF. Pt states no concerns with going home at time of dc. He states he has done IV atb at home in the past should this be needed this time. NARENDRA CROWE to follow ID rec. Pt states no further concerns/needs. Advised pt to ask CM if any further question/concerns/needs arise, voices understanding. Pt Goal:Home Plan:Home, needs rx for BGM
[2023-02-25 12:17] LABS: Bedside Glucose 232 mg/dL (74-106)
[2023-02-25 14:06] LABS: Vancomycin, Trough Level 12.2 ug/mL (5.0-15.0)
[2023-02-25] MEDS: 0.9% Normal Saline (1000mL) 1,000 ML 15 ML IV (14:33)
--- NOTE | 2023-02-25 15:09 | CHAPLAIN ---
Type of Pastoral Visit ___ Initial Visit ___ Follow-up Visit ___ On-call Visit ___ General Patient Visit ___ Spiritual Assessment ___ Family Conference ___ Bereavement ___ Rapid Response ___ Code Blue ___ Other (describe below) Pastoral Care Referral From ___ Patient ___ Family ___ Nurse ___ Physician ___ Belt Maker Helper ___ Engineering Production Liaison ___ Other (describe below) Sacrament/Intervention ___ Active listening ___ Anointing ___ Hoahaoism ___ Bereavement ___ Communion ___ Estela exploration ___ ___ Life review ___ Prayer ___ Reconciliation ___ Sacrament of Sick ___ Supportive presence ___ Wedding ___ Other (describe below) Pastoral Comments patient is out of the room; a calling card is left
--- NOTE | 2023-02-25 15:15 | PCM.RX.CS ---
Consult Antibiotic Management Pharmacy has been consulted to manage selected antibiotic: Vancomycin Type of Intervention Type of Consult: Follow-up Suspected Infection Suspected Infection: Osteomyelitis Prior Doses of Antibiotics Prior Doses of Antibiotics Received/Current Regimen: Vancomycin 1500 mg IV Q8H given 02/24 @ 2223, and 02/25 @ 0621 Labs Labs: Sodium 136 mmol/L (136-145) 02/24/23 13:15 Potassium 3.8 mmol/L (3.5-5.1) 02/24/23 13:15 Chloride 104 mmol/L (98-107) 02/24/23 13:15 Carbon Dioxide 27.0 mmol/L (21.0-32.0) 02/24/23 13:15 Anion Gap 5 (5-15) 02/24/23 13:15 BUN 16 mg/dL (7-18) 02/24/23 13:15 BUN/Creatinine Ratio 18.4 RATIO (10-20) 02/24/23 13:15 Glucose 302 mg/dL (74-106) H 02/24/23 13:15 Vancomycin Trough 12.2 ug/mL (5.0-15.0) 02/25/23 13:25 Microbiology Microbiology: Microbiology 02/24/23 09:30 Wound - Toe Gram Stain - Final 02/24/23 09:30 Wound - Toe Wound Culture - Preliminary Beta streptococcus Dosing Weight Weight used for dosin.4 kg Estimated Creatinine Clearance Estimated Creatinine Clearance: ~125 Goal Trough Goal Trough: 15-20 mcg/mL Pharmacy Plan for Drug Dosing Pharmacy Plan for Drug Dosing: Vancomycin trough drawn 7 hours after previous dose = 12.2, will increase to 2000 mg q8h Pharmacy Service will continue to monitor and adjust dosing as required. Follow-Up Labs Follow-Up Labs: Trough: Vancomycin Date/Time Labs Ordered Labs to be done on [date and time ordered]: 02/26/23 @ 1416
[2023-02-25 15:20] LABS: Creatinine, Serum 0.68 mg/dL (0.70-1.30); EST Glomerular Filtration Rate 134 mL/min (>60); Est Glom Filt Rate - Afr Amer 162 mL/min (>60); Estimated Creatinine Clearance 206.04 ml/min
[2023-02-25] MEDS: Bupivacaine Mpf 0.5% 30 ML VIAL (15:40)
--- NOTE | 2023-02-25 16:00 | AMP_PTH ---
PATHOLOGY RESULTS PATIENT: DANIELLE DUMAS LOC: [place] U#:[id number] AGE/SX: 47/M ROOM: [facility] [place] RE02/25/[address]: Dr. Eliu Benites DPM : 1975 BED: 1 DIS: 02/28/2023 SPEC #: [id number] RECD: 02/26/23 07:27 STATUS: CANDY RELatrice #: [id number] BEVERLY: 02/25/23 16:[address]: Eliu Benites DEPT: SURGICAL PATHOLOGY RECD BY: Melanie Driscoll ENTERED: 02/26/23 07:28 SP TYPE: Amputation OTHR DR: MD Dr. Cas Enciso DO Dr. Efewongbe Oleghe, MD Dr. Loren Kirchner, MD Dr. Prakash Chand, MD Dr. Robert Leininger, MD Barbara Tickton, SUPERVISOR WEBBING-C Barbara Esquivel, SUPERVISOR WEBBING-C Jah Diaz, SUPERVISOR WEBBING-C ANA Kirkland PA Rachael McGoron, PA Tissues: Bone of foot, NOS Toe, NOS Procedures: Decalcification bone/plaque Surgery Specimen Level III Surgery Specimen Level IV HEADER OPERATION: Amputation second toe PRE-OP DIAGNOSIS: Acute osteomyelitis of toe of left foot TISSUE SUBMITTED: A - Clearance fragment left second toe, B - Amputated second toe, left foot MICROSCOPIC DIAGNOSIS A. Clearance fragment bone, left second toe, biopsy: Focal reparative and reactive change. Negative for acute osteomyelitis. B. Amputated second toe, left foot: Skin with hyperkeratosis, focal granulation, chronic and mild acute inflammation. Bone with chronic reparative and reactive change. AM:tiffany 03/03/2023 MICROSCOPIC DESCRIPTION Slides are reviewed. GROSS DESCRIPTION A - Received in fixative is one container labeled with the patient's name and designated clearance fragment left second toe. The specimen consists of a piece of bone measuring 0.6 x 0.4 x 0.2 cm. The entire specimen is submitted in one cassette after decalcification. B - Received in fixative is one container labeled with the patient's name and designated amputated second toe, left foot. The specimen consists of a portion of toe measuring 2.5 x 2.5 x 1.2 cm. A focal area of ulceration is noted at the tip of the toe. The nail is present and appears to be atrophic. Apprentice Funeral Director sections are submitted in three cassettes as follows: 1 - ulcerated area, 2 & 3 - bone after decalcification. / BELKYS:tiffany 02/26/2023 TC:2 CPT: 19181, 43172, 98458 x2
--- NOTE | 2023-02-25 16:16 | PCM.OPRPT ---
Report of Operation Date of Procedure: 02/25/23 Pre-Operative Diagnosis: Osteomyelitis left 2nd toe Post-Operative Diagnosis: Same Surgery/Procedure Performed:: Partial left 2nd toe amputation Surgeon: Eliu Benites patient relations specialist: Dipti Type of Anesthesia: Local and MAC Specimen's removed: Bone culture distal phalanx left 2nd toe sent to microbiology Amputated left 2nd toe sent to pathology Clearance fragment middle phalanx left 2nd toe sent to pathology and microbiology Estimated Blood Loss (mL): 1mL Description of Procedure: Indications: 47 year old gentleman with peripheral neuropathy and diabetes noted to have wound to distal aspect of the left 2nd toe, xray and MRI findings consistent with osteomyelitis, toe is red and swollen, the wound has drainage all consistent with infection. Discussed options with him, trying to save the toe, antibiotics, wound care, offloading, and surgical options. Reviewed the possible benefits vs risks of each. He ultimately elected to proceed with left 2nd toe amputation. The procedure was discussed with him, reviewed possible benefits vs risks, goals, expectations and estimated healing time. Risks include but not limited to infection, need for further surgery, pain, bleeding, transfer lesions, blood clot, delayed or nonhealing. The consent form was reviewed with him and he freely signed it. No guarantees were given nor implied. No warranties were given. Operative Procedure: He was brought back to the operating room and was placed on the operating room table in the supine position. The patient was secured to operating table with a safety belt around his waist. He received MAC anesthesia per the anesthesia team. The skin was cleansed with 70% Isopropyl alcohol and a left 2nd toe nerve block was completed using a total of 10mL of 0.5% Bupivacaine plain. A well padded left ankle pneumatic tourniquet was applied. The left foot was scrubbed, prepped, and draped in the usual aseptic fashion. Further attention was directed to the left 2nd toe - there was a distal wound to the toe and there was drainage, there is erythema and edema localized to toe as well. A timeout was performed and the patient was properly identified and surgical plan confirmed. An incision was made around the toe at 2nd toe at the level of the distal interphalangeal joint using a 15 blade. This was made down to bone and in a way a dorsal and plantar flap was made. The toe was amputated at the distal interphalangeal joint and the head of the middle phalanx was resected using a powered sagittal saw. The bone of the distal phalanx soft and eroded, a bone culture was obtained of the distal phalanx and sent to microbiology. The toe was amputated as noted above and amputated part of the toe was sent to pathology. The head of the middle phalanx appeared healthy and viable, was hard and white, and bone culture was obtained from the head of the proximal phalanx using a bone cutting rongeur and sent to microbiology and pathology as clearance fragement. The site was flushed out with copious amounts of normal saline solution. The remaining tissues appeared healing and viable. The skin was reapproximated using 3-0 Prolene. A dressing was applied which consisted of betadine soaked adaptic, 4x4 gauze, kerlix and haily dressing. The pneumatic tourniquet was deflated and there was immediate return of warmth and perfusion to the foot. He tolerated the procedure well with no complications. He was transported from the operating room to the recovery room with vital signs stable and in good condition. Post op orders were placed and he will be followed as inpatient. Grafts/Implants Used: None Complications None
--- NOTE | 2023-02-25 16:24 | RAD_ITS ---
STUDY: X-RAY - LEFT FOOT CLINICAL: Male, 47 years old. POST OP LEFT 2ND TOE OSTEOMYELITIS TECHNIQUE: 3 view(s) of the foot. COMPARISON: 02/01/2023 FINDINGS: Patient is status post amputation of the distal aspect of the middle phalanx of the second toe and the distal phalanx. Normal postoperative soft tissue swelling noted. Persistent severe polyarticular arthrosis throughout the left foot, particularly in the first MTP joint, second MTP joint where there are subchondral erosions and flattening of the second metatarsal head and in the tarsal metatarsal joint spaces. No acute fracture or suspicious erosive lesion. Calcaneal heel spurs RAD/Foot min 3 Views IMPRESSION: Postoperative changes in the distal aspect of the second toe with normal postoperative soft tissue swelling No acute fracture or suspicious osseous lesion Stable polyarticular arthrosis unchanged from 02/01/2023 Calcaneal spurs Electronically Signed: Iván Jean-Baptiste MD at 17:11 EST ,
[2023-02-25] MEDS: Vancomycin Trough/Random Due 1 LAB MC (17:03)
[2023-02-25] MEDS: Vancomycin HCl 2,000 MG in 0.9% Normal Saline (500mL Bag) 500 ML 250 MG IV (17:33)
[2023-02-25] MEDS: Juven (unflavored) Packet 1 PACKET PO (17:33)
[2023-02-25 17:59] LABS: Bedside Glucose 171 mg/dL (74-106)
[2023-02-25] MEDS: Acetaminophen 325 MG Tablet 650 MG PO (18:15)
[2023-02-25] MEDS: Tamsulosin HCl 0.4 MG Capsule 0.400000000000000022 MG PO (21:11)
[2023-02-25] MEDS: Insulin Glargine-YFGN 100 UNIT/ML Pen 12 UNIT SC (21:12)
[2023-02-25] MEDS: oxyCODONE 5 MG Tablet PO (21:47)
[2023-02-25 22:49] LABS: Bedside Glucose 210 mg/dL (74-106)
[2023-02-26] MEDS: Vancomycin HCl 2,000 MG in 0.9% Normal Saline (500mL Bag) 500 ML 250 MG IV ×2 (01:30→09:52)
[2023-02-26 02:30] VITALS: BP 111/58; PULSE 92; RESP 16; TEMP 36.6; O2SAT 94
[2023-02-26] MEDS: Acetaminophen 325 MG Tablet 650 MG PO ×2 (02:55→20:25)
[2023-02-26] MEDS: oxyCODONE 5 MG Tablet PO ×3 (03:15→20:25)
[2023-02-26] MEDS: Piperacil/Tazobactam 3.375 GM in 0.9% Normal Saline (50mL MB+) 50 ML IV ×3 (06:27→22:27)
[2023-02-26 06:58] LABS: Bedside Glucose 195 mg/dL (74-106)
[2023-02-26] MEDS: Insulin Lispro 100 UNIT/ML INSULN.PEN 8 UNIT SC ×3 (07:55→16:12)
[2023-02-26] MEDS: Insulin Lispro 100 UNIT/ML INSULN.PEN SC ×4 (07:55→20:27)
[2023-02-26] MEDS: Juven (unflavored) Packet 1 PACKET PO ×2 (07:56→16:12)
[2023-02-26 08:13] VITALS: O2SAT 94
[2023-02-26 08:30] VITALS: BP 105/63; PULSE 76; RESP 16; TEMP 36.5; O2SAT 98
[2023-02-26] MEDS: Insulin Glargine-YFGN 100 UNIT/ML Pen 12 UNIT SC (09:50)
--- NOTE | 2023-02-26 10:41 | PN.HOSP_ITS ---
Reason for Visit Reason for Visit: Diagnoses Type 2 diabetes mellitus with diabetic polyneuropathy (02/25/23) Non-pressure chronic ulcer of other part of left foot with fat layer exposed (02/25/23) Other acute osteomyelitis, left ankle and foot (02/25/23) Objective Data Objective Data Vital Signs: Vital Signs Temp Pulse Resp BP Pulse Ox O2 Del Method 97.7 F L 76 16 105/63 98 Room Air 02/26/23 08:30 02/26/23 08:30 02/26/23 08:30 02/26/23 08:30 02/26/23 08:30 02/26/23 09:00 Oxygen Delivery Method Room Air Weight: 318 lb 6.406 oz Body Mass Index (BMI) 39.8 Intake & Output: Intake and Output for Last 24 Hours 02/24/23 02/25/23 02/26/23 23:59 23:59 23:59 Intake Total 1440.00 / 1840.00 2390 / 2965 1540 / 1540 Output Total 200 / 900 1250 / 1250 Balance 1440.00 / 1840.00 2190 / 2065 290 / 290 Lab / Micro Data 02/24/23 13:15 02/25/23 13:25 Labs: Laboratory Results - last 24 hr 02/25/23 11:54: POC Glucose 232 H 02/25/23 13:25: Creatinine 0.68 L, Estim Creat Clear Calc 206.04, Est GFR (MDRD) Af Amer 162, Est GFR (MDRD) Non-Af 134, Vancomycin Trough 12.2 02/25/23 17:24: POC Glucose 171 H 02/25/23 21:10: POC Glucose 210 H 02/26/23 06:26: POC Glucose 195 H Micro: Microbiology 02/24/23 09:30 Wound - Toe Gram Stain - Final 02/24/23 09:30 Wound - Toe Wound Culture - Final Streptococcus agalactiae (B) Radiography Diagnostic Testing: Radiology Impression Foot X-Ray 02/25/23 16:24 IMPRESSION: Postoperative changes in the distal aspect of the second toe with normal postoperative soft tissue swelling No acute fracture or suspicious osseous lesion Stable polyarticular arthrosis unchanged from 02/01/2023 Calcaneal spurs Electronically Signed: Iván Jean-Baptiste MD at 17:11 EST , Physical Exam Narrative Seen and examined. Patient admitted with left 2nd toe chronic ulcer, chronic osteomyelitis. Had surgery yesterday. Patient is diabetic with high A1c. Physical exam General: Alert, Oriented x3, Cooperative. Morbid obesity BMI 39.8 kg/m? HEENT: Atraumatic, PERRLA, EOMI, Normocephalic Oral: No Gingival or Mucosal Lesions/ Ulcerations Neck: Supple, No JVD, Negative Carotid Bruits Lungs: Air entry diminished in bilateral lung bases. No crepitation/rhonchi Cardiovascular: Regular rate, Regular Rhythm, Normal S1, Normal S2, No murmurs Abdomen: Bowel Sounds Present, Soft, Non Tender, Non-Distended : No renal angle tenderness. No suprapubic tenderness. Extremities: No edema, Capillary Refill Less than 3 Seconds Skin: Left 2nd toe, tip has ulcer. Nonhealing. Musculoskeletal: No Tenderness to Palpation of Joints or Extremities Neurological: Cranial nerves II-XII grossly intact, DTR 2+/4. No acute focal neurological deficit. Psych/Mental Status: Normal Affect, Appropriate. Assessment & Plan Assessment/Plan (1) Acute osteomyelitis of toe of left foot: PLAN: Plan The patient is a 47 y/o M is being admitted for left third toe pain for 2 to 3 days with radiation up to tibial region. History of surgery on the foot by Dr. Benites in the past. Denies fever. Denies new trauma. Patient also has chronic ankle pain and swelling because history of ankle surgery in the past. #1. Left Second toe Acutely Infected Diabetic Wound with Suspected Acute Osteomyelitis: Directly admitted per podiatry. Preliminary wound culture shows beta Streptococcus 1+. MRI foot shows osteomyelitis of second distal phalanx. Marrow edema of the distal phalanx of second toe. CRP mildly elevated although ESR normal. Currently on empiric vancomycin and Zosyn. Patient had a course of Cipro and Doxy few weeks ago. ID was consulted. Patient had partial left second toe amputation on 02/25/2023. Will wait for tissue/operative culture. 02/26: Tissue/wound culture from 02/26 shows beta Streptococcus, [employer], GNR possible Pseudomonas species. Will wait for the final culture report. #2. Diabetes mellitus type II, poorly controlled: A1c 8.8%. Last hemoglobin A1c 04/27/2021 6.4%. 02/26 glucose is high between 250-325. Patient is started on Humalog insulin and Lantus insulin. Insulin dose uptitrated. Monitor Accu-Cheks and needs further adjustment. #3. Morbid Obesity: Weight loss and lifestyle changes encouraged, nutrition consulted. #4. DVT prophylaxis: SCDs, DVT prophylaxis. Microbiology Past 72 Hours 02/25/23 Unknown Bone - 2nd Toe Gram Stain - Final 02/25/23 Unknown Bone - 2nd Toe Wound Culture - Preliminary Beta streptococcus Coag Negative Staph GNR Poss Pseudomonas sp 02/25/23 Unknown Tissue - 2nd Toe Gram Stain - Final 02/24/23 09:30 Wound - Toe Gram Stain - Final 02/24/23 09:30 Wound - Toe Wound Culture - Final Streptococcus agalactiae (B) Laboratory Results 02/25/23 17:24: POC Glucose 171 H 02/25/23 21:10: POC Glucose 210 H 02/26/23 06:26: POC Glucose 195 H 02/26/23 11:36: POC Glucose 295 H Charges/Coding Visit Charges Inpatient E&M: 61059 Subs Hosp L2
--- NOTE | 2023-02-26 12:11 | WOUNDNOTE ---
wound photo: left 2nd toe
--- NOTE | 2023-02-26 12:11 | PCM.PROGNOTE ---
Subjective Subjective He was seen today for follow up on left 2nd toe partial amputation. He is resting comfortably in bed, and parents at bedside. He said he did have some pain in his 3rd toe, no other complaints. Objective Data Objective Data Vital Signs: Vital Signs Temp Pulse Resp BP Pulse Ox O2 Del Method 97.7 F L 76 16 105/63 98 Room Air 02/26/23 08:30 02/26/23 08:30 02/26/23 08:30 02/26/23 08:30 02/26/23 08:30 02/26/23 09:00 Oxygen Delivery Method Room Air Weight: 144.424 kg Body Mass Index (BMI) 39.8 Intake & Output: Intake and Output for Last 24 Hours 02/24/23 02/25/23 02/26/23 23:59 23:59 23:59 Intake Total 1440.00 / 1840.00 2390 / 2965 1540 / 1540 Output Total 200 / 900 1250 / 1250 Balance 1440.00 / 1840.00 2190 / 2065 290 / 290 Lab / Micro Data 02/24/23 13:15 02/25/23 13:25 Labs: Laboratory Results - last 24 hr 02/25/23 11:54: POC Glucose 232 H 02/25/23 13:25: Creatinine 0.68 L, Estim Creat Clear Calc 206.04, Est GFR (MDRD) Af Amer 162, Est GFR (MDRD) Non-Af 134, Vancomycin Trough 12.2 02/25/23 17:24: POC Glucose 171 H 02/25/23 21:10: POC Glucose 210 H 02/26/23 06:26: POC Glucose 195 H Micro: Microbiology 02/25/23 Unknown Bone - 2nd Toe Wound Culture - Preliminary Beta streptococcus Coag Negative Staph GNR Poss Pseudomonas sp 02/24/23 09:30 Wound - Toe Gram Stain - Final 02/24/23 09:30 Wound - Toe Wound Culture - Final Streptococcus agalactiae (B) Radiography Diagnostic Testing: Radiology Impression Foot X-Ray 02/25/23 16:24 IMPRESSION: Postoperative changes in the distal aspect of the second toe with normal postoperative soft tissue swelling No acute fracture or suspicious osseous lesion Stable polyarticular arthrosis unchanged from 02/01/2023 Calcaneal spurs Electronically Signed: Iván Jean-Baptiste MD at 17:11 EST , Physical Exam Narrative Left foot - s/p partial 2nd toe amputation, sutures intact, no dehiscence, no drainage, no maloder, no necrosis, no fluctuance, no crepitus, no visible abscess, there is some erythema to the dorsal toe, no erythema plantarly, there is some edema to the residual toe, otherwise no open lesions, no erythema, no signs of infection to the foot or ankle. No evidence of ischemia to the foot or ankle, left, no evidence of DVT. There is a very small superficial callus to the distal left 3rd toe. Const alert, oriented x3 and no apparent distress Assessment & Plan Assessment/Plan (1) Acute osteomyelitis of toe of left foot: (2) Type 2 diabetes mellitus with diabetic polyneuropathy: QUALIFIERS: Diabetes mellitus termite exterminator insulin use: unspecified termite exterminator insulin use status Qualified Code(s): E11.42 - Type 2 diabetes mellitus with diabetic polyneuropathy (3) Non-pressure chronic ulcer of other part of left foot with fat layer exposed: PLAN: Plan Evaluation preformed. Reviewed diagnostic data. MRI reviewed and findings c/w osteomyelitis to the left 2nd toe distal phalanx, now s/p partial toe amputation on 02/25/2023 - site healing appropriately at this time. Cultures has been obtained, he has been started on Vanc and Zosyn, ID service has been consulted and following. Patient noted to have elevated blood sugar - Hospitalist consulted. Wound care to surgical site left 2nd toe - betadine soln and gauze dressing change. Keep offloaded at all times. No weightbearing left foot, keep foot elevated.
--- NOTE | 2023-02-26 12:12 | WOUNDNOTE ---
wound photo: left 2nd toe
[2023-02-26 12:36] LABS: Bedside Glucose 295 mg/dL (74-106)
--- NOTE | 2023-02-26 15:05 | CASEMGMT ---
Social Work SW met with pt and and discussed advance directives. Pt does not have a living will or health care POA. Pt requesting to complete a HCPOA at this time but does not want to complete a living will. Pt naming his Zane Chino as designee. Original given to pt and copy on chart. REYES Mcclelland
[2023-02-26 16:00] VITALS: BP 128/77; PULSE 70; RESP 18; TEMP 36.8; O2SAT 98
[2023-02-26] MEDS: Vancomycin Trough/Random Due 1 LAB MC (16:17)
--- NOTE | 2023-02-26 16:26 | CHAPLAIN ---
Type of Pastoral Visit _x__ Initial Visit ___ Follow-up Visit ___ On-call Visit ___ General Patient Visit ___ Spiritual Assessment ___ Family Conference ___ Bereavement ___ Rapid Response ___ Code Blue ___ Other (describe below) Pastoral Care Referral From _x__ Patient ___ Family ___ Nurse ___ Physician ___ Specification Manager ___ Disability Insurance Hearing Officer ___ Other (describe below) Sacrament/Intervention _x__ Active listening ___ Anointing ___ Adventist ___ Bereavement ___ Communion ___ Estela exploration ___ _x__ Life review _x__ Prayer ___ Reconciliation ___ Sacrament of Sick ___ Supportive presence ___ Wedding ___ Other (describe below) Pastoral Comments patient and spouse are in the room and welcoming; pt is working on his computer to stay active and updated for work; pt and spouse are optimistic about the surgery and care being received; pt admits having desire to be discharged while understanding necessity of staying in hospital; both speak of how they are managing and that prayer would be welcomed for continued healing and support
[2023-02-26 17:00] VITALS: BP 128/77; PULSE 70; RESP 16; TEMP 36.8; O2SAT 98
[2023-02-26 17:46] LABS: Vancomycin, Trough Level 18.1 ug/mL (5.0-15.0)
[2023-02-26 18:02] LABS: Bedside Glucose 258 mg/dL (74-106)
--- NOTE | 2023-02-26 18:28 | PCM.RX.CS ---
Consult Antibiotic Management Pharmacy has been consulted to manage selected antibiotic: Vancomycin Type of Intervention Type of Consult: Follow-up Labs Labs: Sodium 136 mmol/L (136-145) 02/24/23 13:15 Potassium 3.8 mmol/L (3.5-5.1) 02/24/23 13:15 Chloride 104 mmol/L (98-107) 02/24/23 13:15 Carbon Dioxide 27.0 mmol/L (21.0-32.0) 02/24/23 13:15 Anion Gap 5 (5-15) 02/24/23 13:15 BUN 16 mg/dL (7-18) 02/24/23 13:15 Creatinine 0.68 mg/dL (0.70-1.30) L 02/25/23 13:25 Est GFR (MDRD) Af Amer 162 mL/min (>60) 02/25/23 13:25 Est GFR (MDRD) Non-Af 134 mL/min (>60) 02/25/23 13:25 BUN/Creatinine Ratio 18.4 RATIO (10-20) 02/24/23 13:15 Glucose 302 mg/dL (74-106) H 02/24/23 13:15 Vancomycin Trough 18.1 ug/mL (5.0-15.0) H 02/26/23 16:30 Microbiology Microbiology: Microbiology 02/25/23 Unknown Bone - 2nd Toe Gram Stain - Final 02/25/23 Unknown Bone - 2nd Toe Wound Culture - Preliminary Beta streptococcus Coag Negative Staph GNR Poss Pseudomonas sp 02/25/23 Unknown Tissue - 2nd Toe Gram Stain - Final 02/24/23 09:30 Wound - Toe Gram Stain - Final 02/24/23 09:30 Wound - Toe Wound Culture - Final Streptococcus agalactiae (B) Goal Trough Goal Trough: 15-20 mcg/mL Pharmacy Plan for Drug Dosing Pharmacy Plan for Drug Dosing: VANCOMYCIN LEVEL RECEIVED Current Vancomycin Dose: 2000mg IV Q8h Number of Doses Received: 3 (of current regimen) Vancomycin Level: 18.1 Hours Since Last Dose: 6.5hr Renal Function: 0.68 Renal Function Trend: stable Lab/Micro: Bone Cx growing mult spp Vancomycin Plan/Comments: Patient had a trough drawn which resulted in a value of 18.1 (Goal 15-20). Patient is currently within therapeutic range. Given the patient is on a large dose of vancomycin every 8 hours, will continue current dose but check a trough again in 24hrs to ensure pt is still within therapeutic goal. Pending Level: 02/27/23 @1700 Pharmacy Service will continue to monitor and adjust dosing as required.
[2023-02-26] MEDS: Vancomycin HCl 2,000 MG in 0.9% Normal Saline (500mL Bag) 500 ML 200 MG IV (18:36)
[2023-02-26 20:24] VITALS: BP 120/86; PULSE 102; RESP 18; TEMP 37; O2SAT 94
[2023-02-26] MEDS: Tamsulosin HCl 0.4 MG Capsule 0.400000000000000022 MG PO (20:24)
[2023-02-26] MEDS: Insulin Glargine-YFGN 100 UNIT/ML Pen 17 UNIT SC (20:28)
[2023-02-26 23:10] LABS: Bedside Glucose 235 mg/dL (74-106)
[2023-02-27 02:16] VITALS: BP 117/68; PULSE 90; RESP 18; TEMP 36.9; O2SAT 95
[2023-02-27] MEDS: Vancomycin HCl 2,000 MG in 0.9% Normal Saline (500mL Bag) 500 ML 250 MG IV (02:18)
[2023-02-27] MEDS: Acetaminophen 325 MG Tablet 650 MG PO ×2 (02:19→20:56)
[2023-02-27] MEDS: oxyCODONE 5 MG Tablet PO ×2 (02:19→20:56)
[2023-02-27] MEDS: Piperacil/Tazobactam 3.375 GM in 0.9% Normal Saline (50mL MB+) 50 ML IV ×3 (06:37→22:03)
[2023-02-27 07:34] LABS: Absolute Lymphocyte Count 2.76 X10^3/uL (0.83-4.51); Absolute Neutrophil Count 4.6 X10^3/uL (2.0-7.7); Basophil# 0.07 X10^3/uL; Basophil% 0.8 % (0-1); Eosinophil# 0.23 X10^3/uL; Eosinophils% 2.7 % (0-5); Hematocrit 45.5 % (40-54); Hemoglobin 15.2 g/dL (13.0-16.5); Lymphocyte # 2.76 X10^3/ul (0.83-4.51); Mean Corp Hgb Conc 33.4 g/dL (32-36); Mean Corpuscular Hgb 28.3 pg (27.0-32.0); Mean Corpuscular Volume 84.7 fL (80-94); Mean Platelet Vol. 9.6 fl (6.2-12.0); Monocyte# 0.69 X10^3/uL; Monocyte% 8.2 % (0-10); NRBC Flagged by Analyzer 0 % (0-5); Neutrophil # 4.59 X10^3/uL (2.7-7.7); Neutrophil % 54.9 % (47-70); Platelet Count 190 K/mm3 (150-450); RBC Distribution Width CV 13.3 % (11.6-14.6); RBC Distribution Width SD 41.1 fl (35.1-43.9); Red Blood Count 5.37 M/mm3 (4.6-6.2); White Blood Count 8.4 K/mm3 (4.4-11.0)
[2023-02-27 07:40] VITALS: BP 134/90; PULSE 90; RESP 16; TEMP 36.5; O2SAT 97
[2023-02-27] MEDS: Insulin Lispro 100 UNIT/ML INSULN.PEN SC ×4 (07:48→22:14)
[2023-02-27] MEDS: Insulin Lispro 100 UNIT/ML INSULN.PEN 12 UNIT SC ×3 (07:48→16:23)
[2023-02-27] MEDS: Insulin Glargine-YFGN 100 UNIT/ML Pen 17 UNIT SC ×2 (07:49→22:10)
[2023-02-27] MEDS: Juven (unflavored) Packet 1 PACKET PO ×2 (07:49→16:23)
[2023-02-27 08:01] LABS: ALB/GLOB Ratio 0.9 RATIO (0.9-2.4); AST(SGOT) 11 U/L (15-37); Alanine Aminotransfer ALT/SGPT 29 U/L (16-61); Alkaline Phosphatase 90 U/L (45-117); Anion Gap 6 (5-15); BUN 15 mg/dL (7-18); BUN/Creat Ratio 22.9 RATIO (10-20); Calcium,Total 9.2 mg/dL (8.5-10.1); Chloride 106 mmol/L (98-107); Creatinine, Serum 0.65 mg/dL (0.70-1.30); EST Glomerular Filtration Rate 139 mL/min (>60); Est Glom Filt Rate - Afr Amer 168 mL/min (>60); Estimated Creatinine Clearance 215.55 ml/min; Globulin 3.3 g/dL (2.2-4.2); Glucose 236 mg/dL (74-106); Potassium 3.9 mmol/L (3.5-5.1); Protein, Total 6.3 g/dL (6.4-8.2); Sodium Level 137 mmol/L (136-145)
[2023-02-27 08:17] VITALS: O2SAT 93
[2023-02-27 08:45] LABS: Bedside Glucose 230 mg/dL (74-106)
[2023-02-27] MEDS: Vancomycin HCl 2,000 MG in 0.9% Normal Saline (500mL Bag) 500 ML 200 MG IV (09:26)
--- NOTE | 2023-02-27 10:56 | PCM.PN.ID ---
Physical Exam Narrative Feeling fine, no fever, no n/v/d. Const alert and no apparent distress General Appearance: cooperative Resp normal air movement and clear to auscultation bilaterally Cardio regular rate and regular rhythm GI soft to palpation, non-tender and non-distended Skin Skin Narrative: foot wrapped ID ID: Route of nutrition/ use of supplements: [] Nutritional Intake: [] IV Site: [] Saini Catheter: [] Assessment & Plan Assessment/Plan (1) Acute osteomyelitis of toe of left foot: PLAN: Course of cipro/doxy a few weeks ago. OR for amputation 02/25/23. Clearance cx neg so far. Surg cx with PsA like, strep, CoNS so far. On empiric vanc/zosyn. Plan on short course po abx when he leaves. 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 mellitus termite exterminator insulin use: unspecified correction insulin use status Qualified Code(s): E11.42 - Type 2 diabetes mellitus with diabetic polyneuropathy
[2023-02-27 11:21] LABS: Bedside Glucose 256 mg/dL (74-106)
[2023-02-27 13:58] VITALS: BP 137/84; PULSE 91; RESP 15; TEMP 36.7; O2SAT 97
--- NOTE | 2023-02-27 14:44 | CASEMGMT ---
Addendum entered by Nicole Parra 02/27/23 14:49: Rx given for BGM. Original Note: A verbal list provided of local in network DME companies including quality and resource use data and consistent with the patient's preferred geographic region, medical needs, and insurance network. Pt chooses [facility] for his home walker need. Pt also states that he feels comfortable caring for his wound at home with the help of his . Denies any other DC needs at this time.
[2023-02-27 16:41] LABS: Bedside Glucose 216 mg/dL (74-106)
--- NOTE | 2023-02-27 17:14 | PN_ITS ---
Subjective Subjective Patient was seen today for follow up on left 2nd toe partial amputation. He is resting sitting in chair with foot elevated. He has no new complaints, no pain at this time. No complaints of f/c/n/v or any other complaints. Objective Data Objective Data Vital Signs: Vital Signs Temp Pulse Resp BP Pulse Ox O2 Del Method 98.0 F 91 15 137/84 H 97 Room Air 02/27/23 13:58 02/27/23 13:58 02/27/23 13:58 02/27/23 13:58 02/27/23 13:58 02/27/23 13:58 Oxygen Delivery Method Room Air Weight: 144.424 kg Body Mass Index (BMI) 39.8 Intake & Output: Intake and Output for Last 24 Hours 02/25/23 02/26/23 02/27/23 23:59 23:59 23:59 Intake Total 2390 / 2965 4320 / 4720 1680 / 1680 Output Total 200 / 900 1250 / 1250 Balance 2190 / 2065 3070 / 3470 1680 / 1680 Lab / Micro Data 02/27/23 07:15 02/27/23 07:15 Labs: Laboratory Results - last 24 hr 02/26/23 16:11: POC Glucose 258 H 02/26/23 16:30: Vancomycin Trough 18.1 H 02/26/23 20:26: POC Glucose 235 H 02/27/23 07:15: WBC 8.4, RBC 5.37, Hgb 15.2, Hct 45.5, MCV 84.7, MCH 28.3, MCHC 33.4, RDW Std Deviation 41.1, RDW Coeff of Gabriella 13.3, Plt Count 190, MPV 9.6, Im mature Gran % (Auto) 0.400, Neut % (Auto) 54.9, Lymph % (Auto) 33.0, [place] % (Auto) 8.2, Eos % (Auto) 2.7, Baso % (Auto) 0.8, Absolute Neuts (auto) 4.6, Absolute Lymphs (auto) 2.76, Nucleated RBC % 0, Sodium 137, Potassium 3.9, Chloride 106, Carbon Dioxide 25.0, Anion Gap 6, BUN 15, Creatinine 0.65 L, Estim Creat Clear Calc 215.55, Est GFR (MDRD) Af Amer 168, Est GFR (MDRD) Non-Af 139, BUN/Creatinine Ratio 22.9 H, Glucose 236 H, Calcium 9.2, Total Bilirubin 0.70, AST 11 L, ALT 29, Alkaline Phosphatase 90, Total Protein 6.3 L, Albumin 3.0 L, Globulin 3.3, Albumin/Globulin Ratio 0.9 02/27/23 07:47: POC Glucose 230 H 02/27/23 11:04: POC Glucose 256 H 02/27/23 16:20: POC Glucose 216 H Micro: Microbiology 02/24/23 09:30 Wound - Toe Gram Stain - Final 02/24/23 09:30 Wound - Toe Wound Culture - Final Streptococcus agalactiae (B) 02/24/23 09:30 Wound - Toe Anaerobic Culture - Preliminary 02/25/23 Unknown Bone - 2nd Toe Gram Stain - Final 02/25/23 Unknown Bone - 2nd Toe Wound Culture - Preliminary Streptococcus agalactiae (B) Staphylococcus epidermidis GNR Poss Pseudomonas sp 02/25/23 Unknown Tissue - 2nd Toe Gram Stain - Final 02/25/23 Unknown Tissue - 2nd Toe Wound Culture - Preliminary Gram negative adan Physical Exam Narrative Left foot - s/p partial 2nd toe amputation, sutures intact, no dehiscence, no drainage, no maloder, no necrosis, no fluctuance, no crepitus, no visible absce ss, there is some erythema to the dorsal toe which is improved, no erythema plantarly, there is some edema to the residual toe which is improved, otherwise no open lesions, no erythema, no signs of infection to the foot or ankle. No evidence of ischemia to the foot or ankle, left, no evidence of DVT. There is a very small superficial callus to the distal left 3rd toe. Const alert, oriented x3 and no apparent distress Assessment & Plan Assessment/Plan (1) Acute osteomyelitis of toe of left foot: (2) Type 2 diabetes mellitus with diabetic polyneuropathy: QUALIFIERS: Diabetes mellitus retirement insulin use: unspecified ferry terminal supervisor insulin use status Qualified Code(s): E11.42 - Type 2 diabetes mellitus with diabetic polyneuropathy (3) Non-pressure chronic ulcer of other part of left foot with fat layer exposed: PLAN: Plan Evaluation preformed. Reviewed diagnostic data. MRI reviewed and findings c/w osteomyelitis to the left 2nd toe distal phalanx, now s/p partial toe amputation on 02/25/2023 - site healing appropriately at this time. Cultures has been obtained, he is on Vanc and Zosyn, ID service has been consulted and following. Patient noted to have elevated blood sugar - Hospitalist consulted. Wound care to surgical site left 2nd toe - betadine soln and gauze dressing change. Keep offloaded at all times. No weightbearing left foot, keep foot elevated. DVT Prophylaxis: SCDs bilateral LE
--- NOTE | 2023-02-27 17:18 | PN.HOSP_ITS ---
Reason for Visit Reason for Visit: Diagnoses Type 2 diabetes mellitus with diabetic polyneuropathy (02/25/23) Non-pressure chronic ulcer of other part of left foot with fat layer exposed (02/25/23) Other acute osteomyelitis, left ankle and foot (02/25/23) Objective Data Objective Data Vital Signs: Vital Signs Temp Pulse Resp BP Pulse Ox O2 Del Method 98.0 F 91 15 137/84 H 97 Room Air 02/27/23 13:58 02/27/23 13:58 02/27/23 13:58 02/27/23 13:58 02/27/23 13:58 02/27/23 13:58 Oxygen Delivery Method Room Air Weight: 318 lb 6.406 oz Body Mass Index (BMI) 39.8 Intake & Output: Intake and Output for Last 24 Hours 02/25/23 02/26/23 02/27/23 23:59 23:59 23:59 Intake Total 2390 / 2965 4320 / 4720 1680 / 1680 Output Total 200 / 900 1250 / 1250 Balance 2190 / 2065 3070 / 3470 1680 / 1680 Lab / Micro Data 02/27/23 07:15 02/27/23 07:15 Labs: Laboratory Results - last 24 hr 02/26/23 16:11: POC Glucose 258 H 02/26/23 16:30: Vancomycin Trough 18.1 H 02/26/23 20:26: POC Glucose 235 H 02/27/23 07:15: WBC 8.4, RBC 5.37, Hgb 15.2, Hct 45.5, MCV 84.7, MCH 28.3, MCHC 33.4, RDW Std Deviation 41.1, RDW Coeff of Gabriella 13.3, Plt Count 190, MPV 9.6, Immature Gran % (Auto) 0.400, Neut % (Auto) 54.9, Lymph % (Auto) 33.0, [place] % (Auto) 8.2, Eos % (Auto) 2.7, Baso % (Auto) 0.8, Absolute Neuts (auto) 4.6, Absolute Lymphs (auto) 2.76, Nucleated RBC % 0, Sodium 137, Potassium 3.9, Chloride 106, Carbon Dioxide 25.0, Anion Gap 6, BUN 15, Creatinine 0.65 L, Estim Creat Clear Calc 215.55, Est GFR (MDRD) Af Amer 168, Est GFR (MDRD) Non-Af 139, BUN/Creatinine Ratio 22.9 H, Glucose 236 H, Calcium 9.2, Total Bilirubin 0.70, AST 11 L, ALT 29, Alkaline Phosphatase 90, Total Protein 6.3 L, Albumin 3.0 L, Globulin 3.3, Albumin/Globulin Ratio 0.9 02/27/23 07:47: POC Glucose 230 H 02/27/23 11:04: POC Glucose 256 H 02/27/23 16:20: POC Glucose 216 H Micro: Microbiology 02/24/23 09:30 Wound - Toe Gram Stain - Final 02/24/23 09:30 Wound - Toe Wound Culture - Final Streptococcus agalactiae (B) 02/24/23 09:30 Wound - Toe Anaerobic Culture - Preliminary 02/25/23 Unknown Bone - 2nd Toe Gram Stain - Final 02/25/23 Unknown Bone - 2nd Toe Wound Culture - Preliminary Streptococcus agalactiae (B) Staphylococcus epidermidis GNR Poss Pseudomonas sp 02/25/23 Unknown Tissue - 2nd Toe Gram Stain - Final 02/25/23 Unknown Tissue - 2nd Toe Wound Culture - Preliminary Gram negative adan Physical Exam Narrative Seen and examined. Patient admitted with left 2nd toe chronic ulcer, chronic osteomyelitis. Had surgery already. Awaiting tissue culture.. Patient is diabetic with high A1c. Physical exam General: Alert, Oriented x3, Cooperative. Morbid obesity BMI 39.8 kg/m? HEENT: Atraumatic, PERRLA, EOMI, Normocephalic Oral: No Gingival or Mucosal Lesions/ Ulcerations Neck: Supple, No JVD, Negative Carotid Bruits Lungs: Air entry diminished in bilateral lung bases. No crepitation/rhonchi Cardiovascular: Regular rate, Regular Rhythm, Normal S1, Normal S2, No murmurs Abdomen: Bowel Sounds Present, Soft, Non Tender, Non-Distended : No renal angle tenderness. No suprapubic tenderness. Extremities: No edema, Capillary Refill Less than 3 Seconds Skin: Left 2nd toe, tip has ulcer. Nonhealing. Musculoskeletal: No Tenderness to Palpation of Joints or Extremities Neurological: Cranial nerves II-XII grossly intact, DTR 2+/4. No acute focal neurological deficit. Psych/Mental Status: Normal Affect, Appropriate. Assessment & Plan Assessment/Plan (1) Acute osteomyelitis of toe of left foot: PLAN: Plan The patient is a 47 y/o M is being admitted for left third toe pain for 2 to 3 days with radiation up to tibial region. History of surgery on the foot by Dr. Benites in the past. Denies fever. Denies new trauma. Patient also has chronic ankle pain and swelling because history of ankle surgery in the past. #1. Left Second toe Acutely Infected Diabetic Wound with Suspected Acute Osteomyelitis: Directly admitted per podiatry. Preliminary wound culture shows beta Streptococcus 1+. MRI foot shows osteomyelitis of second distal phalanx. Marrow edema of the distal phalanx of second toe. CRP mildly elevated although ESR normal. Currently on empiric vancomycin and Zosyn. Patient had a course of Cipro and Doxy few weeks ago. ID was consulted. Patient had partial left second toe amputation on 02/25/2023. Will wait for tissue/operative culture. 02/26: Tissue/wound culture from 02/26 shows beta Streptococcus, ORANGE PICKER, GNR possible Pseudomonas species. Will wait for the final culture report. #2. Diabetes mellitus type II, poorly controlled: A1c 8.8%. Last hemoglobin A1c 04/27/2021 6.4%. 02/26 glucose is high between 250-325. Patient is started on Humalog insulin and Lantus insulin. Insulin dose uptitrated. Monitor Accu-Cheks and needs further adjustment. 02/25: Preliminary tissue culture shows Streptococcus group B, Staph epidermidis, GNR possible Pseudomonas. Will wait for full culture and then determine antibiotic. #3. Morbid Obesity: Weight loss and lifestyle changes encouraged, nutrition consulted. #4. DVT prophylaxis: SCDs, DVT prophylaxis. Microbiology Past 72 Hours 02/24/23 09:30 Wound - Toe Gram Stain - Final 02/24/23 09:30 Wound - Toe Wound Culture - Final Streptococcus agalactiae (B) 02/24/23 09:30 Wound - Toe Anaerobic Culture - Preliminary 02/25/23 Unknown Bone - 2nd Toe Gram Stain - Final 02/25/23 Unknown Bone - 2nd Toe Wound Culture - Preliminary Streptococcus agalactiae (B) Staphylococcus epidermidis GNR Poss Pseudomonas sp 02/25/23 Unknown Tissue - 2nd Toe Gram Stain - Final 02/25/23 Unknown Tissue - 2nd Toe Wound Culture - Preliminary Gram negative adan Laboratory Results 02/26/23 16:11: POC Glucose 258 H 02/26/23 16:30: Vancomycin Trough 18.1 H 02/26/23 20:26: POC Glucose 235 H 02/27/23 07:15: WBC 8.4, RBC 5.37, Hgb 15.2, Hct 45.5, MCV 84.7, MCH 28.3, MCHC 33.4, RDW Std Deviation 41.1, RDW Coeff of Gabriella 13.3, Plt Count 190, MPV 9.6, Immature Gran % (Auto) 0.400, Neut % (Auto) 54.9, Lymph % (Auto) 33.0, [place] % (A uto) 8.2, Eos % (Auto) 2.7, Baso % (Auto) 0.8, Absolute Neuts (auto) 4.6, Absolute Lymphs (auto) 2.76, Nucleated RBC % 0, Sodium 137, Potassium 3.9, Chloride 106, Carbon Dioxide 25.0, Anion Gap 6, BUN 15, Creatinine 0.65 L, Estim Creat Clear Calc 215.55, Est GFR (MDRD) Af Amer 168, Est GFR (MDRD) Non-Af 139, BUN/Creatinine Ratio 22.9 H, Glucose 236 H, Calcium 9.2, Total Bilirubin 0.70, AST 11 L, ALT 29, Alkaline Phosphatase 90, Total Protein 6.3 L, Albumin 3.0 L, Globulin 3.3, Albumin/Globulin Ratio 0.9 02/27/23 07:47: POC Glucose 230 H 02/27/23 11:04: POC Glucose 256 H 02/27/23 16:20: POC Glucose 216 H 02/27/23 16:31: Vancomycin Trough Pending Charges/Coding Visit Charges Inpatient E&M: 57467 Subs Hosp L2
[2023-02-27 17:54] LABS: Vancomycin, Trough Level 21.1 ug/mL (5.0-15.0)
--- NOTE | 2023-02-27 18:25 | PHA.PHARE_ITS ---
Consult Antibiotic Management Pharmacy has been consulted to manage selected antibiotic: Vancomycin Type of Intervention Type of Consult: Follow-up Suspected Infection Suspected Infection: Osteomyelitis Prior Doses of Antibiotics Prior Doses of Antibiotics Received/Current Regimen: Vancomycin 2000 mg iv given 02/26 @ 1836, 02/27 @ 0218, 02/27 @ 0926 Labs Labs: Sodium 137 mmol/L (136-145) 02/27/23 07:15 Potassium 3.9 mmol/L (3.5-5.1) 02/27/23 07:15 Chloride 106 mmol/L (98-107) 02/27/23 07:15 Carbon Dioxide 25.0 mmol/L (21.0-32.0) 02/27/23 07:15 Anion Gap 6 (5-15) 02/27/23 07:15 BUN 15 mg/dL (7-18) 02/27/23 07:15 Creatinine 0.65 mg/dL (0.70-1.30) L 02/27/23 07:15 Est GFR (MDRD) Af Amer 168 mL/min (>60) 02/27/23 07:15 Est GFR (MDRD) Non-Af 139 mL/min (>60) 02/27/23 07:15 BUN/Creatinine Ratio 22.9 RATIO (10-20) H 02/27/23 07:15 Glucose 236 mg/dL (74-106) H 02/27/23 07:15 Vancomycin Trough 21.1 ug/mL (5.0-15.0) H 02/27/23 16:31 Microbiology Microbiology: Microbiology 02/24/23 09:30 Wound - Toe Gram Stain - Final 02/24/23 09:30 Wound - Toe Wound Culture - Final Streptococcus agalactiae (B) 02/24/23 09:30 Wound - Toe Anaerobic Culture - Preliminary 02/25/23 Unknown Bone - 2nd Toe Gram Stain - Final 02/25/23 Unknown Bone - 2nd Toe Wound Culture - Preliminary Streptococcus agalactiae (B) Staphylococcus epidermidis GNR Poss Pseudomonas sp 02/25/23 Unknown Tissue - 2nd Toe Gram Stain - Final 02/25/23 Unknown Tissue - 2nd Toe Wound Culture - Preliminary Gram negative adan Dosing Weight Weight used for dosin.2 kg Estimated Creatinine Clearance Estimated Creatinine Clearance: >120 Goal Trough Goal Trough: 15-20 mcg/mL Pharmacy Plan for Drug Dosing Pharmacy Plan for Drug Dosing: Vancomycin trough 21.1, drawn 7 hours after administration, will hold and get random in 12 hours. Pharmacy Service will continue to monitor and adjust dosing as required. Follow-Up Labs Follow-Up Labs: Trough: Vancomycin Date/Time Labs Ordered Labs to be done on [date and time ordered]: 02/28/23 @ 0436
[2023-02-27] MEDS: 0.9% Saline Lock 10 ML Syringe IV (20:48)
[2023-02-27 20:54] VITALS: BP 141/82; PULSE 83; RESP 18; TEMP 36.8; O2SAT 97
[2023-02-27] MEDS: Tamsulosin HCl 0.4 MG Capsule 0.400000000000000022 MG PO (22:03)
[2023-02-27 22:38] LABS: Bedside Glucose 255 mg/dL (74-106)
[2023-02-27 23:42] VITALS: PULSE 80
[2023-02-28 03:30] VITALS: BP 118/79; PULSE 84; RESP 16; TEMP 36.6; O2SAT 96
[2023-02-28] MEDS: Piperacil/Tazobactam 3.375 GM in 0.9% Normal Saline (50mL MB+) 50 ML IV (04:59)
--- NOTE | 2023-02-28 06:14 | PCM.RX.CS ---
Consult Antibiotic Management Pharmacy has been consulted to manage selected antibiotic: Vancomycin Type of Intervention Type of Consult: Follow-up Labs Labs: Sodium 137 mmol/L (136-145) 02/27/23 07:15 Potassium 3.9 mmol/L (3.5-5.1) 02/27/23 07:15 Chloride 106 mmol/L (98-107) 02/27/23 07:15 Carbon Dioxide 25.0 mmol/L (21.0-32.0) 02/27/23 07:15 Anion Gap 6 (5-15) 02/27/23 07:15 BUN 15 mg/dL (7-18) 02/27/23 07:15 Creatinine 0.65 mg/dL (0.70-1.30) L 02/27/23 07:15 Est GFR (MDRD) Af Amer 168 mL/min (>60) 02/27/23 07:15 Est GFR (MDRD) Non-Af 139 mL/min (>60) 02/27/23 07:15 BUN/Creatinine Ratio 22.9 RATIO (10-20) H 02/27/23 07:15 Glucose 236 mg/dL (74-106) H 02/27/23 07:15 Vancomycin Trough 21.1 ug/mL (5.0-15.0) H 02/27/23 16:31 Random Vancomycin 8.0 ug/mL (0.0-15.0) 02/28/23 04:20 Microbiology Microbiology: Microbiology 02/24/23 09:30 Wound - Toe Gram Stain - Final 02/24/23 09:30 Wound - Toe Wound Culture - Final Streptococcus agalactiae (B) 02/24/23 09:30 Wound - Toe Anaerobic Culture - Preliminary 02/25/23 Unknown Bone - 2nd Toe Gram Stain - Final 02/25/23 Unknown Bone - 2nd Toe Wound Culture - Preliminary Streptococcus agalactiae (B) Staphylococcus epidermidis GNR Poss Pseudomonas sp 02/25/23 Unknown Tissue - 2nd Toe Gram Stain - Final 02/25/23 Unknown Tissue - 2nd Toe Wound Culture - Preliminary Gram negative adan Goal Trough Goal Trough: 15-20 mcg/mL Pharmacy Plan for Drug Dosing Pharmacy Plan for Drug Dosing: Pharmacy Service will continue to monitor and adjust dosing as required. RANDOM LEVEL 8.0 @ 0420. RESTART AT 1750 Q8H AND FOLLOW UP TROUGH PRIOR TO 4TH DOSE Follow-Up Labs Follow-Up Labs: Trough: Vancomycin Date/Time Labs Ordered Labs to be done on [date and time ordered]: 03/01 @ 3656
[2023-02-28 08:00] VITALS: BP 124/82; PULSE 76; RESP 14; TEMP 36.6; O2SAT 97
[2023-02-28] MEDS: Insulin Lispro 100 UNIT/ML INSULN.PEN SC ×2 (08:28→12:03)
[2023-02-28] MEDS: Insulin Lispro 100 UNIT/ML INSULN.PEN 12 UNIT SC ×2 (08:28→12:04)
[2023-02-28] MEDS: Insulin Glargine-YFGN 100 UNIT/ML Pen 17 UNIT SC (08:29)
[2023-02-28] MEDS: Juven (unflavored) Packet 1 PACKET PO (08:29)
[2023-02-28 08:55] LABS: Bedside Glucose 176 mg/dL (74-106)
[2023-02-28] MEDS: Vancomycin HCl 1,750 MG in 0.9% Normal Saline (500mL Bag) 500 ML 200 MG IV (09:14)
--- NOTE | 2023-02-28 10:31 | PCM.DC ---
Discharge Instructions Diet Discharge Diet: Low fat / Low cholesterol, 1800 Calorie Control Diet and 2000 mg Sodium Diet Activity Discharge Activity: Return to Normal Activity Weight Bearing Status: Weight bearing as tolerated Dressing / Incision Call your doctor if you observe: Fever of 101 or Higher, Coldness, Increased Pain, Numbness or Tingling, Change in Color, Inability to urinate, Inability to have a bowel movement, Shortness of breath, Dizziness, Fainting spells, Swelling in the ankles, Chest pain, Prolonged hiccupping, Increased palpitations (irregular heartbeat) and Calf discomfort Follow Up Care When: IN 2 WEEKS Test Results: Test results from this visit will be discussed in further detail at your follow-up appointment, if applicable. Discharge Plan Admission Admit Date/Time: 02/25/23 09:21 Primary Reason for Your Visit: Left second toe osteomyelitis. Attending Provider: Eliu Benites Primary Care Provider: Licha Brar Consulting Providers: Milla Horner; Cas Sams; Licha Brar; Merle Cunningham; Layne Aguillon NP; Barbara Esquivel; Carson Diaz NP; Howie Conde; Irlanda Watson; Irlanda Monroe; Maksim Albright; Levi Carter Discharge Orders/Prescriptions Prescriptions: New oxycodone-acetaminophen [Percocet] 5-325 mg tablet 1 tab PO Q6H PRN (Reason: pain) 3 Days Qty: 12 0RF amoxicillin-pot clavulanate 875-125 mg tablet 1 tab PO BID Qty: 10 0RF levofloxacin 750 mg tablet 750 mg PO DAILY Qty: 38 0RF insulin lispro [Humalog KwikPen Insulin] 100 unit/mL Insulin Pen See Protocol subcut ACHS Qty: 0 0RF Protocol: 3. Sliding Scale Insulin Med Dosing Condition: 150-189 mg/dl = 1 unit Condition: 190-229 mg/dl = 2 units Condition: 230-269 mg/dl = 3 units Condition: 270-309 mg/dl = 4 units Condition: 310-349 mg/dl = 5 units Condition: 350-399 mg/dl = 6 units Condition: 400-449 mg/dl = 7 units Condition: Greater than 449 call physician Protocol Text: - Use for Total Daily Dose of Insulin 37-55 units - Alan infected, or steroid patients MEDIUM DOSING ALGORITHIM insulin lispro [Humalog KwikPen Insulin] 100 unit/mL Insulin Pen 17 unit subcut TIDAC Qty: 15 3RF Rx Instructions: Hold if glucose less than 130 mg/dl (DME) insulin syr/ndl U100 half carson 0.3 mL 31 gauge x 15/64 syringe See Rx Instructions .Route Qty: 100 0RF Rx Instructions: As directed insulin glargine [Lantus Solostar U-100 Insulin] 100 unit/mL (3 mL) insulin pen 22 unit subcut BID Qty: 15 4RF Rx Instructions: Hold if glucose less than 130 mg/dl Continued alfuzosin 10 mg tablet extended release 24 hr 10 mg PO DAILY Other Ambulatory Orders: Glucometer (Routine) Timeframe: 1 Day Location: Determined by Patient Ordered By: Dr. Levi Carter Referrals / Follow Up: Licha Brar MD [Primary Care Provider] - Within 2 Weeks Eliu Benites DPM [Med Staff - Active Staff] - Within 1 Week Disposition Disposition (needs filled in before D/C Order can be placed): Home, Self Care
[2023-02-28 11:47] LABS: Bedside Glucose 246 mg/dL (74-106)
--- NOTE | 2023-02-28 12:30 | CASEMGMT ---
[facility] Rx sent to [facility] via [employer].
--- NOTE | 2023-02-28 13:02 | PN.ID_ITS ---
Physical Exam Narrative Feeling better, no fever, no n/v/d. Const alert and no apparent distress General Appearance: cooperative Resp normal air movement and clear to auscultation bilaterally Cardio regular rate and regular rhythm GI soft to palpation, non-tender and non-distended Skin Skin Narrative: foot wrapped ID ID: Route of nutrition/ use of supplements: [] Nutritional Intake: [] IV Site: [] Saini Catheter: [] Assessment & Plan Assessment/Plan (1) Acute osteomyelitis of toe of left foot: PLAN: Course of cipro/doxy a few weeks ago. OR for amputation 02/25/23. Clearance cx neg so far. Surg cx with PsA, strep, CoNS so far. Clearance cx with very rare PsA. Path pending. On empiric vanc/zosyn. Ok for home with 5 days augmentin, 6 weeks total of levaquin. ID followup in 2 weeks. Counseled him re potential diarrhea, tendonopathy, peripheral neuropathy with quinolones. 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
--- NOTE | 2023-02-28 13:17 | PHA.DC.MC.R ---
Pharmacy [facility] Pharmacy Service has performed discharge medication reconciliation and counseling for this patient. The patient's discharge medication list was reviewed for discrepancies and discrepancies were resolved. The patient was counseled on the following discharge medications and changes in medications for homegoing were reviewed. The Reason for Use, instructions for use, and potential side effects were reviewed for all new medications. The patient's questions regarding all of their medications were answered. 1. Amoxicillin/clavulanate 875/125 mg PO BID x 5 days 2. Levofloxacin 750 mg PO daily x 38 days 3. Oxycodone/acetaminophen 5/325 PO Q6H PRN pain The patient was able to verbally demonstrate an understanding of their discharge medications. Medications at Discharge Home Medications alfuzosin 10 mg tablet,extended release 24 hr 10 mg PO DAILY 02/24/23 oxycodone-acetaminophen 5 mg-325 mg tablet (Percocet) 1 tab PO Q6H PRN pain 3 days #12 tabs 02/27/23 amoxicillin 875 mg-potassium clavulanate 125 mg tablet 1 tab PO BID #10 tabs 02/28/23 levofloxacin 750 mg tablet 750 mg PO DAILY #38 tabs 02/28/23
--- NOTE | 2023-02-28 13:29 | PCM.PROGNOTE ---
Subjective Subjective Patient was seen and evaluated this afternoon seated in chair bedside with feet elevated. is present with him this afternoon. He has remained nonweightbearing to the left lower extremity. Patient states he feels good overall and denies constitutional symptoms. Denying further complaints. Objective Data Objective Data Vital Signs: Vital Signs Temp Pulse Resp BP Pulse Ox O2 Del Method 97.8 F 76 14 124/82 H 97 Room Air 02/28/23 08:00 02/28/23 08:00 02/28/23 08:00 02/28/23 08:00 02/28/23 08:00 02/28/23 08:00 Oxygen Delivery Method Room Air Weight: 144.424 kg Body Mass Index (BMI) 39.8 Intake & Output: Intake and Output for Last 24 Hours 02/26/23 02/27/23 02/28/23 23:59 23:59 23:59 Intake Total 4320 / 4720 2405 / 2405 1579.5 / 1579.5 Output Total 1250 / 1250 Balance 3070 / 3470 2405 / 2405 1579.5 / 1579.5 Lab / Micro Data 02/27/23 07:15 02/27/23 07:15 Labs: Laboratory Results - last 24 hr 02/27/23 16:20: POC Glucose 216 H 02/27/23 16:31: Vancomycin Trough 21.1 H 02/27/23 22:07: POC Glucose 255 H 02/28/23 04:20: Random Vancomycin 8.0 02/28/23 08:27: POC Glucose 176 H 02/28/23 11:28: POC Glucose 246 H Micro: Microbiology 02/25/23 Unknown Tissue - 2nd Toe Gram Stain - Final 02/25/23 Unknown Tissue - 2nd Toe Wound Culture - Final Pseudomonas aeruginosa 02/25/23 Unknown Tissue - 2nd Toe Anaerobic Culture - Preliminary 02/25/23 Unknown Bone - 2nd Toe Gram Stain - Final 02/25/23 Unknown Bone - 2nd Toe Wound Culture - Final Streptococcus agalactiae (B) Staphylococcus epidermidis Pseudomonas aeruginosa 02/25/23 Unknown Bone - 2nd Toe Anaerobic Culture - Preliminary 02/24/23 09:30 Wound - Toe Gram Stain - Final 02/24/23 09:30 Wound - Toe Wound Culture - Final Streptococcus agalactiae (B) 02/24/23 09:30 Wound - Toe Anaerobic Culture - Final No anaerobic bacteria isolated. Physical Exam Narrative Left foot - s/p partial 2nd toe amputation, sutures intact, no dehiscence, no drainage, no maloder, no necrosis, no fluctuance, no crepitus, no visible abscess, there is some erythema to the dorsal toe which is improved, no erythema plantarly, there is some edema to the residual toe which is improved, otherwise no open lesions, no erythema, no signs of infection to the foot or ankle. No evidence of ischemia to the foot or ankle, left, no evidence of DVT. There is a very small superficial callus to the distal left 3rd toe. Const alert, oriented x3 and no apparent distress HEENT normocephalic Eyes General Eye: normal appearance of both eyes Neck General: normal visual inspection Lymph Lymphatic: no lymphadenopathy noted and no lymphedema noted Resp normal respiratory effort Cardio regular rate and regular rhythm Extremity normal capillary refill, no joint enlargement, no calf tenderness and no pedal edema Skin no rashes or lesions noted, skin turgor normal and no jaundice Neuro moves all extremities Assessment & Plan Assessment/Plan (1) Acute osteomyelitis of toe of left foot: (2) Type 2 diabetes mellitus with diabetic polyneuropathy: 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 POD #3 Reviewed diagnostic data. MRI reviewed and findings c/w osteomyelitis to the left 2nd toe distal phalanx, now s/p partial toe amputation on 02/25/2023 - site healing appropriately at this time. Sutures intact at amputation stump. No signs of infection. Erythema much improved from yesterday. Surgical cultures demonstrate: Coagulation negative staph, strep, PsA. Clearance fragment with very rare growth PsA. Dressings changed today. Wound care to surgical site left 2nd toe - betadine soln and gauze dressing change. Keep offloaded at all times. No weightbearing left foot, keep foot elevated. Utilize assistance of crutches/walker/knee scooter for assistance and nonweightbearing to the left foot. DVT prophylaxis: [facility] Medicine team currently following for medical management, they are appreciated. Infectious disease following for antibiotic management, they are appreciated. ID recommending 5 days of oral Augmentin and 6 weeks of oral Levaquin upon discharge. ID will follow in 2 weeks. Patient to be discharged home today. will assist in dressing changes at home. Discussed with patient and to continue to elevate lower extremity at times of rest for postoperative edema control and to remain nonweightbearing to the left lower extremity. Discussed following with Dr. Benites Friday or Friday of next week. Jr. Shamir Link.P.[facility]. [facility] [phone]
--- NOTE | 2023-02-28 13:38 | DCINST_ITS ---
Discharge Instructions Diet Discharge Diet: - (Continue to follow proper diabetic diet and eat and glycemic control and to promote healing.) Activity Discharge Activity: May Drive, May Shower (Please utilize cast bag covering to keep dressings clean, dry, and intact to the left foot) and Use Walker (Please remain nonweightbearing to the left lower extremity with the assistance of crutches/walker/knee scooter) Weight Bearing Status: No weight bearing (Please remain nonweightbearing to the left lower extremity with assistance of crutches, walker, knee scooter) Keep extremity elevated above heart level: Left Leg (Please elevate left lower extremity at all times rest for postoperative edema control) Dressing / Incision Call your doctor if your incision/area has: Foul Smelling Discharge Call your doctor if you observe: Fever of 101 or Higher, Shortness of breath, Chest pain, Calf discomfort and Uncontrolled pain Change Dressing in: 1 day ( is understanding of dressing changes and will change dressing daily to every other day.) Cleanse incision/area with: Do not get Incision Wet and Keep Dressing Clean & Dry (Please utilize cast bag when showering to keep dressings clean, dry, and intact to the left foot) Follow Up Care Please Follow Up With: Eliu Benites DPM When: 1 week Test Results: Test results from this visit will be discussed in further detail at your follow- up appointment, if applicable. Discharge Plan Admission Admit Date/Time: 02/25/23 09:21 Attending Provider: Eliu Benites Primary Care Provider: Licha Brar Consulting Providers: Milla Horner; Cas Sams; Licha Brar; Merle Cunningham; Layne Aguillon NP; Barbara Esquivel; Jah Diaz NP; Howie Conde; Irlanda Watson; Irlanda Monroe; Maksim Albright; Levi Carter Discharge Orders/Prescriptions Prescriptions: New oxycodone-acetaminophen [Percocet] 5-325 mg tablet 1 tab PO Q6H PRN (Reason: pain) 3 Days Qty: 12 0RF amoxicillin-pot clavulanate 875-125 mg tablet 1 tab PO BID Qty: 10 0RF levofloxacin 750 mg tablet 750 mg PO DAILY Qty: 38 0RF No Action alfuzosin 10 mg tablet extended release 24 hr 10 mg PO DAILY Referrals / Follow Up: Licha Brar MD [Primary Care Provider] - Disposition Disposition (needs filled in before D/C Order can be placed): Home, Self Care
--- NOTE | 2023-02-28 13:57 | DS.PCM_ITS ---
Providers Date of Admission: 02/25/23 Date of Discharge: 02/28/23 Primary Care Physician: Dr. Licha Brar MD Consultations 02/24/23 12:32 Consult: Onc/Wound/primary therapist Routine Comment: Reason for Consult:: 2nd toe dressing 02/24/23 17:20 Consult: Hospitalist Routine Consulting Provider: [facility] Reason for Consult: Hyperglycemia EMERGENT Consult: No MD Notified: Yes Date Notified: 02/24/23 Time Notified: 17:20 Method of Notification: Verbal 02/24/23 18:17 Consult: Infectious Disease Routine Consulting Provider: Maksim Albright Reason for Consult: osteomyelitis left 2nd toe EMERGENT Consult: No Notified: Yes Date Notified: 02/25/23 Time Notified: 06:20 Method of Notification: Answering Service Reason For Visit: LEFT SECOND TOE OSTEOMYELITIS Diagnosis Discharge Diagnosis (1) Acute osteomyelitis of toe of left foot: Status: Acute Code(s): M86.172 - Other acute osteomyelitis, left ankle and foot (2) Type 2 diabetes mellitus with diabetic polyneuropathy: Status: Acute Code(s): E11.42 - Type 2 diabetes mellitus with diabetic polyneuropathy Qualifiers: Diabetes mellitus buttermaker continuous churn insulin use: unspecified buttermaker continuous churn insulin use status Qualified Code(s): E11.42 - Type 2 diabetes mellitus with diabetic polyneuropathy (3) Non-pressure chronic ulcer of other part of left foot with fat layer exposed: Status: Chronic Code(s): L97.522 - Non-pressure chronic ulcer of other part of left foot with fat layer exposed Plan Patient seen and evaluated He is s/p distal Symes amputation of the second digit of the left foot, DOS: 02/25/2023. POD #3 Reviewed diagnostic data. MRI reviewed and findings c/w osteomyelitis to the l eft 2nd toe distal phalanx, now s/p partial toe amputation on 02/25/2023 - site healing appropriately at this time. Sutures intact at amputation stump. No signs of infection. Erythema much improved from yesterday. Surgical cultures demonstrate: Coagulation negative staph, strep, PsA. Clearance fragment with very rare growth PsA. Dressings changed today. Wound care to surgical site left 2nd toe - betadine soln and gauze dressing change. Keep offloaded at all times. No weightbearing left foot, keep foot elevated. Utilize assistance of crutches/walker/knee scooter for assistance and nonweightbearing to the left foot. [facility] [place] [place] [facility] [place] currently following for medical management, they are appreciated. Infectious disease following for antibiotic management, they are appreciated. ID recommending 5 days of oral Augmentin and 6 weeks of oral Levaquin upon discharge. ID will follow in 2 weeks. Patient to be discharged home today. will assist in dressing changes at home. Discussed with patient and to continue to elevate lower extremity at times of rest for postoperative edema control and to remain nonweightbearing to the left lower extremity. Discussed following with Dr. Benites Friday or Friday of next week. Jr. Shamir [facility] [phone] Medications at Discharge Home Medications alfuzosin 10 mg tablet,extended release 24 hr 10 mg PO DAILY 02/24/23 oxycodone-acetaminophen 5 mg-325 mg tablet (Percocet) 1 tab PO Q6H PRN pain 3 days #12 tabs 02/27/23 amoxicillin 875 mg-potassium clavulanate 125 mg tablet 1 tab PO BID #10 tabs 02/09 levofloxacin 750 mg tablet 750 mg PO DAILY #38 tabs 02/28/23 Hospital Course Operations - (Second digit distal Symes amputation of the left foot) Summary of Care Provided Hospital Course: Patient [facility]22 for osteomyelitis second digit left foot and cellulitis of left foot. He underwent radiographic plain film imaging demonstrating cortical bone erosion of the distal phalanx of the left foot and thus underwent MRI on 02/24/2023 demonstrating osteomyelitis of the distal phalanx of the left foot. He was taken to surgery on 02/25/2023 for distal Symes amputation of the second digit of the left foot. He continued IV antibiotics while in house [facility]. Medicine team was following for medical management and infectious disease following for antibiotic management. Following 3 days of stay and IV antibiotics cellulitis of the second digit significantly improved. Sutures are intact at the distal amputation stump of the second digit of the left foot with no signs of infection. His dressings were changed daily. At this time following his 3-day course he is to be discharged home and will continue to follow in office with Dr. Benites for continued postoperative care. He will continue outpatient oral course of antibiotics per ID recommendation. Physical Exam Narrative Left foot - s/p partial 2nd toe amputation, sutures intact, no dehiscence, no drainage, no maloder, no necrosis, no fluctuance, no crepitus, no visible abscess, there is some erythema to the dorsal toe which is improved, no erythema plantarly, there is some edema to the residual toe which is improved, otherwise no open lesions, no erythema, no signs of infection to the foot or ankle. No evidence of ischemia to the foot or ankle, left, no evidence of DVT. There is a very small superficial callus to the distal left 3rd toe. Const alert, oriented x3 and no apparent distress HEENT normocephalic Eyes General Eye: normal appearance of both eyes Neck General: normal visual inspection Lymph Lymphatic: no lymphadenopathy noted and no lymphedema noted Resp normal respiratory effort Cardio regular rate and regular rhythm Extremity normal capillary refill, no joint enlargement, no calf tenderness and no pedal edema Skin no rashes or lesions noted, skin turgor normal and no jaundice Neuro moves all extremities Weight / BMI Weight Weight: 144.424 kg Body Mass Index (BMI) 39.8 ABG / Lab / Microbiology Data 02/27/23 07:15 02/27/23 07:15 Laboratory: Laboratory Results - last 24 hr 02/27/23 16:20: POC Glucose 216 H 02/27/23 16:31: Vancomycin Trough 21.1 H 02/27/23 22:07: POC Glucose 255 H 02/28/23 04:20: Random Vancomycin 8.0 02/28/23 08:27: POC Glucose 176 H 02/28/23 11:28: POC Glucose 246 H Microbiology: Microbiology 02/25/23 Unknown Tissue - 2nd Toe Gram Stain - Final 02/25/23 Unknown Tissue - 2nd Toe Wound Culture - Final Pseudomonas aeruginosa 02/25/23 Unknown Tissue - 2nd Toe Anaerobic Culture - Preliminary 02/25/23 Unknown Bone - 2nd Toe Gram Stain - Final 02/25/23 Unknown Bone - 2nd Toe Wound Culture - Final Streptococcus agalactiae (B) Staphylococcus epidermidis Pseudomonas aeruginosa 02/25/23 Unknown Bone - 2nd Toe Anaerobic Culture - Preliminary 02/24/23 09:30 Wound - Toe Gram Stain - Final 02/24/23 09:30 Wound - Toe Wound Culture - Final Streptococcus agalactiae (B) 02/24/23 09:30 Wound - Toe Anaerobic Culture - Final No anaerobic bacteria isolated. D/C Instructions Discharge Diet: - (Continue to follow proper diabetic diet and eat and glycemic control and to promote healing.) Weight Bearing Status: No weight bearing (Please remain nonweightbearing to the left lower extremity with assistance of crutches, walker, knee scooter) Keep extremity elevated above heart level: Left Leg (Please elevate left lower extremity at all times rest for postoperative edema control) Call your doctor if your incision/area has: Foul Smelling Discharge Call your doctor if you observe: Fever of 101 or Higher, Shortness of breath, Chest pain, Calf discomfort and Uncontrolled pain Cleanse incision/area with: Do not get Incision Wet and Keep Dressing Clean & Dr y (Please utilize cast bag when showering to keep dressings clean, dry, and intact to the left foot) Please Follow Up With: Eliu Benites DPM When: 1 week Meaningful Use Info Meaningful Use Diagnoses (Choose all that apply): None applicable Discharge Plan Admission Admit Date/Time: 02/25/23 09:21 Attending Provider: Eliu Benites Primary Care Provider: Lciha Brar Consulting Providers: Milla Horner; Cas Sams; Licha Brar; Merle Cunningham; Layne Aguillon NP; Barbara Esquivel; Jah Diaz NP; Howie Conde; Irlanda Watson; Irlanda Monroe; Maksim Albright; Levi Carter Discharge Orders/Prescriptions Prescriptions: New oxycodone-acetaminophen [Percocet] 5-325 mg tablet 1 tab PO Q6H PRN (Reason: pain) 3 Days Qty: 12 0RF amoxicillin-pot clavulanate 875-125 mg tablet 1 tab PO BID Qty: 10 0RF levofloxacin 750 mg tablet 750 mg PO DAILY Qty: 38 0RF No Action alfuzosin 10 mg tablet extended release 24 hr 10 mg PO DAILY Referrals / Follow Up: Licha Brar MD [Primary Care Provider] - Disposition Disposition (needs filled in before D/C Order can be placed): Home, Self Care
[2023-02-28 14:14] VITALS: BP 125/76; PULSE 87; RESP 14; TEMP 36.3; O2SAT 97
--- NOTE | 2023-02-28 14:47 | DS.PCM_ITS ---
Providers Date of Admission: 02/25/23 Date of Discharge: 02/28/23 Primary Care Physician: Dr. Licha Brar MD Consultations 02/24/23 12:32 Consult: Onc/Wound/university controller Routine Comment: Reason for Consult:: 2nd toe dressing 02/24/23 17:20 Consult: Hospitalist Routine Consulting Provider: [facility] Reason for Consult: Hyperglycemia EMERGENT Consult: No MD Notified: Yes Date Notified: 02/24/23 Time Notified: 17:20 Method of Notification: Verbal 02/24/23 18:17 Consult: Infectious Disease Routine Consulting Provider: Maksim Albright Reason for Consult: osteomyelitis left 2nd toe EMERGENT Consult: No Notified: Yes Date Notified: 02/25/23 Time Notified: 06:20 Method of Notification: Answering Service Reason For Visit: LEFT SECOND TOE OSTEOMYELITIS Diagnosis Discharge Diagnosis (1) Acute osteomyelitis of toe of left foot: Status: Acute Code(s): M86.172 - Other acute osteomyelitis, left ankle and foot (2) Type 2 diabetes mellitus with diabetic polyneuropathy: Status: Acute Code(s): E11.42 - Type 2 diabetes mellitus with diabetic polyneuropathy Qualifiers: Diabetes mellitus 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 History of surgery on the foot by Dr. Benites in the past. Denies fever. Denies new trauma. Patient also has chronic ankle pain and swelling because history of ankle surgery in the past. #1. Left Second toe Acutely Infected Diabetic Wound with Suspected Acute Osteomyelitis: Directly admitted per podiatry. Preliminary wound culture shows beta Streptococcus 1+. MRI foot shows osteomyelitis of second distal phalanx. Marrow edema of the distal phalanx of second toe. CRP mildly elevated although ESR normal. Currently on empiric vancomycin and Zosyn. Patient had a course of Cipro and Doxy few weeks ago. ID was consulted. Patient had partial left second toe amputation on 02/25/2023. Will wait for tissue/operative culture. 02/26: Tissue/wound culture from 02/26 shows beta Streptococcus, MEMORY CARE PROGRAM DIRECTOR, GNR possible Pseudomonas species. Will wait for the final culture report. 02/28: Final tissue culture shows Pseudomonas aeruginosa, strep group B, Staph epidermidis. The patient is discharged on Augmentin and Levaquin, prescription given by ID. Pain medication prescription given by geodetic advisor. #2. Diabetes mellitus type II, poorly controlled: A1c 8.8%. Last hemoglobin A1c 04/27/2021 6.4%. 02/26 glucose is high between 250-325. Patient is started on Humalog insulin and Lantus insulin. Insulin dose uptitrated. Monitor Accu-Cheks and needs further adjustment. 02/25: Preliminary tissue culture shows Streptococcus group B, Staph epidermidis, GNR possible Pseudomonas. Will wait for full culture and then determine antibiotic. 02/28: Glucose is better controlled but is still high. Patient is discharged on Lantus insulin 22 units twice daily with hold if glucose less than 130 mg/dl. Prescription also given for Humalog insulin along with a sliding scale insulin. Follow with PCP in 2 weeks for better control of glucose. Prescription given for glucometer, insulin needle and supplies. #3. Morbid Obesity: Weight loss and lifestyle changes encouraged, nutrition consulted. BMI 39.8 kg/m? #4. DVT prophylaxis: SCDs, DVT prophylaxis. Discharge medication reconciliation done. Discharge follow-up instructions completed. Discharge process discussed with the patient and all questions were answered to patient's satisfaction. Follow with PCP in 1 to 2 weeks Total time spent, exact 35 minutes on discharge meds reconciliation, examination, coordination of care with nurses and ancillary staff, review of imaging and blood test and discussion with the patient on follow-up instructions. Microbiology Past 72 Hours 02/25/23 Unknown Tissue - 2nd Toe Gram Stain - Final 02/25/23 Unknown Tissue - 2nd Toe Wound Culture - Final Pseudomonas aeruginosa 02/25/23 Unknown Tissue - 2nd Toe Anaerobic Culture - Preliminary 02/25/23 Unknown Bone - 2nd Toe Gram Stain - Final 02/25/23 Unknown Bone - 2nd Toe Wound Culture - Final Streptococcus agalactiae (B) Staphylococcus epidermidis Pseudomonas aeruginosa 02/25/23 Unknown Bone - 2nd Toe Anaerobic Culture - Preliminary 02/24/23 09:30 Wound - Toe Gram Stain - Final 02/24/23 09:30 Wound - Toe Wound Culture - Final Streptococcus agalactiae (B) 02/24/23 09:30 Wound - Toe Anaerobic Culture - Final No anaerobic bacteria isolated. Laboratory Results 02/27/23 16:20: POC Glucose 216 H 02/27/23 16:31: Vancomycin Trough 21.1 H 02/27/23 22:07: POC Glucose 255 H 02/28/23 04:20: Random Vancomycin 8.0 02/28/23 08:27: POC Glucose 176 H 02/28/23 11:28: POC Glucose 246 H Medications at Discharge Home Medications alfuzosin 10 mg tablet,extended release 24 hr 10 mg PO DAILY 02/24/23 oxycodone-acetaminophen 5 mg-325 mg tablet (Percocet) 1 tab PO Q6H PRN pain 3 days #12 tabs 02/27/23 amoxicillin 875 mg-potassium clavulanate 125 mg tablet 1 tab PO BID #10 tabs 02/28/23 insulin glargine 100 unit/mL (3 mL) subcutaneous pen (Lantus Solostar U-100 I nsulin) 22 unit (0.22 mL) subcut BID #15 mL 02/28/23 insulin lispro 100 unit/mL subcutaneous pen (Humalog KwikPen (U-100) Insulin) 17 unit (0.17 mL) subcut TIDAC #15 mL 02/28/23 insulin lispro 100 unit/mL subcutaneous pen (Humalog KwikPen (U-100) Insulin) See Protocol subcut ACHS #0 mL 02/28/23 insulin syr/ndl U100 half carson 0.3mL 31 gauge x 15/64 #100 ea 02/28/23 levofloxacin 750 mg tablet 750 mg PO DAILY #38 tabs 02/28/23 Physical Exam Narrative Seen and examined. Patient admitted with left 2nd toe chronic ulcer, chronic osteomyelitis. No acute issues. Final culture came today. Patient is diabetic with high A1c. Physical exam General: Alert, Oriented x3, Cooperative. Morbid obesity BMI 39.8 kg/m? HEENT: Atraumatic, PERRLA, EOMI, Normocephalic Oral: No Gingival or Mucosal Lesions/ Ulcerations Neck: Supple, No JVD, Negative Carotid Bruits Lungs: Air entry diminished in bilateral lung bases. No crepitation/rhonchi Cardiovascular: Regular rate, Regular Rhythm, Normal S1, Normal S2, No murmurs Abdomen: Bowel Sounds Present, Soft, Non Tender, Non-Distended : No renal angle tenderness. No suprapubic tenderness. Extremities: No edema, Capillary Refill Less than 3 Seconds Skin: Left 2nd toe, tip has ulcer. Nonhealing. Musculoskeletal: No Tenderness to Palpation of Joints or Extremities Neurological: Cranial nerves II-XII grossly intact, DTR 2+/4. No acute focal neurological deficit. Psych/Mental Status: Normal Affect, Appropriate. Weight / BMI Weight Weight: 318 lb 6.406 oz Body Mass Index (BMI) 39.8 ABG / Lab / Microbiology Data 02/27/23 07:15 02/27/23 07:15 Laboratory: Laboratory Results - last 24 hr 02/27/23 16:20: POC Glucose 216 H 02/27/23 16:31: Vancomycin Trough 21.1 H 02/27/23 22:07: POC Glucose 255 H 02/28/23 04:20: Random Vancomycin 8.0 02/28/23 08:27: POC Glucose 176 H 02/28/23 11:28: POC Glucose 246 H Microbiology: Microbiology 02/25/23 Unknown Tissue - 2nd Toe Gram Stain - Final 02/25/23 Unknown Tissue - 2nd Toe Wound Culture - Final Pseudomonas aeruginosa 02/25/23 Unknown Tissue - 2nd Toe Anaerobic Culture - Preliminary 02/25/23 Unknown Bone - 2nd Toe Gram Stain - Final 02/25/23 Unknown Bone - 2nd Toe Wound Culture - Final Streptococcus agalactiae (B) Staphylococcus epidermidis Pseudomonas aeruginosa 02/25/23 Unknown Bone - 2nd Toe Anaerobic Culture - Preliminary 02/24/23 09:30 Wound - Toe Gram Stain - Final 02/24/23 09:30 Wound - Toe Wound Culture - Final Streptococcus agalactiae (B) 02/24/23 09:30 Wound - Toe Anaerobic Culture - Final No anaerobic bacteria isolated. D/C Instructions Discharge Diet: Low fat / Low cholesterol, 1800 Calorie Control Diet and 2000 mg Sodium Diet Weight Bearing Status: Weight bearing as tolerated Keep extremity elevated above heart level: Left Leg (Please elevate left lower extremity at all times rest for postoperative edema control) Call your doctor if your incision/area has: Foul Smelling Discharge Call your doctor if you observe: Fever of 101 or Higher, Coldness, Increased P ain, Numbness or Tingling, Change in Color, Inability to urinate, Inability to have a bowel movement, Shortness of breath, Dizziness, Fainting spells, Swelling in the ankles, Chest pain, Prolonged hiccupping, Increased palpitations (irregular heartbeat) and Calf discomfort Cleanse incision/area with: Do not get Incision Wet and Keep Dressing Clean & Dry (Please utilize cast bag when showering to keep dressings clean, dry, and intact to the left foot) Please Follow Up With: Eliu Benites DPM When: IN 2 WEEKS Meaningful Use Info Meaningful Use Diagnoses (Choose all that apply): None applicable Discharge Plan Admission Admit Date/Time: 02/25/23 09:21 Primary Reason for Your Visit: Left second toe osteomyelitis. Attending Provider: Eliu Benites Primary Care Provider: Licha Brar Consulting Providers: Milla Horner; Cas Sams; Licha Brar; Merle Cunningham; Layne Aguillon NP; Barbara Esquivel; Carson Diaz NP; Howie Conde; Irlanda Watson; Irlanda Monroe; Maksim Albright; Levi Carter Discharge Orders/Prescriptions Prescriptions: New oxycodone-acetaminophen [Percocet] 5-325 mg tablet 1 tab PO Q6H PRN (Reason: pain) 3 Days Qty: 12 0RF amoxicillin-pot clavulanate 875-125 mg tablet 1 tab PO BID Qty: 10 0RF levofloxacin 750 mg tablet 750 mg PO DAILY Qty: 38 0RF insulin lispro [Humalog KwikPen Insulin] 100 unit/mL Insulin Pen See Protocol subcut ACHS Qty: 0 0RF Protocol: 3. Sliding Scale Insulin Med Dosing Condition: 150-189 mg/dl = 1 unit Condition: 190-229 mg/dl = 2 units Condition: 230-269 mg/dl = 3 units Condition: 270-309 mg/dl = 4 units Condition: 310-349 mg/dl = 5 units Condition: 350-399 mg/dl = 6 units Condition: 400-449 mg/dl = 7 units Condition: Greater than 449 call physician Protocol Text: - Use for Total Daily Dose of Insulin 37-55 units - Obsese, infected, or steroid patients MEDIUM DOSING ALGORITHIM insulin lispro [Humalog KwikPen Insulin] 100 unit/mL Insulin Pen 17 unit subcut TIDAC Qty: 15 3RF Rx Instructions: Hold if glucose less than 130 mg/dl (DME) insulin syr/ndl U100 half carosn 0.3 mL 31 gauge x 15/64 syringe See Rx Instructions .Route Qty: 100 0RF Rx Instructions: As directed insulin glargine [Lantus Solostar U-100 Insulin] 100 unit/mL (3 mL) insulin pen 22 unit subcut BID Qty: 15 4RF Rx Instructions: Hold if glucose less than 130 mg/dl Continued alfuzosin 10 mg tablet extended release 24 hr 10 mg PO DAILY Other Ambulatory Orders: Glucometer (Routine) Timeframe: 1 Day Location: Determined by Patient Ordered By: Dr. Levi Carter Referrals / Follow Up: Licha Brar MD [Primary Care Provider] - Within 2 Weeks Eliu Benites DPM [Med Staff - Active Staff] - Within 1 Week Disposition Disposition (needs filled in before D/C Order can be placed): Home, Self Care Charges/Coding Visit Charges Inpatient E&M: 98369 Disch Hosp >30min
--- NOTE | 2023-02-28 15:12 | CASEMGMT ---
Walker was delivered by Clair. Pt states that he and his SO are comfortable injecting insulin as ordered. They state they are also comfortable with the wound care at home. Pt states feeling ready and safe to DC home today with his SO. Pt has the physical script for a BGM. Denies further needs at this time.
== END 2023-02-28 16:28 | disposition home or self-care (01) | DRG 617 ==
PROVIDERS: Family Medicine; Admitting Provider Podiatrist; PCP Internal Medicine; Referring Provider Podiatrist; Visit Provider Podiatrist
PROC: 0Y6N0ZB Detachment at Left Foot, Partial 2nd Ray, Open Approach (ICD-10-PCS; principal; 2023-02-25 15:45)
DX: E11.69 Type 2 diabetes mellitus with other specified complication (principal); M86.172 Other acute osteomyelitis, left ankle and foot; L03.116 Cellulitis of left lower limb; Z68.41 Body mass index [BMI] 40.0-44.9, adult; E11.65 Type 2 diabetes mellitus with hyperglycemia; L97.522 Non-pressure chronic ulcer of other part of left foot with fat layer exposed; B96.5 Pseudomonas (aeruginosa) (mallei) (pseudomallei) as the cause of diseases classified elsewhere; E11.621 Type 2 diabetes mellitus with foot ulcer; E11.42 Type 2 diabetes mellitus with diabetic polyneuropathy; E66.01 Morbid (severe) obesity due to excess calories; Z79.4 Long term (current) use of insulin; Z79.2 Long term (current) use of antibiotics; Z86.16 Personal history of COVID-19
CPT/HCPCS: 36415; 73630; 73718; 80053; 80202; 82565; 82962; 83036; 83735; 85025; 85652; 86140; 87015; 87070; 87075; 87077; 87102; 87116; 87176; 87184; 87186; 87205; 87206; 87640; 88304; 88305; 88311; 97161; 97802; J7030; J7040; A4216; J2405

== ENCOUNTER → 2023-03-24 | Outpatient (CLI) | payer OTHER, SELFPAY ==
[2023-03-24 17:31] LABS: Erythrocyte Sedimentation Rate 19 mm/hr (0-20)
[2023-03-24 17:59] LABS: AST(SGOT) 15 U/L (15-37); Alanine Aminotransfer ALT/SGPT 31 U/L (16-61); Albumin, Serum 3.6 g/dL (3.2-5.0); Alkaline Phosphatase 89 U/L (45-117); Anion Gap 3 (5-15); BUN 14 mg/dL (7-18); BUN/Creat Ratio 15.5 RATIO (10-20); Bilirubin, Direct 0.19 mg/dL (0.00-0.30); Calcium,Total 8.8 mg/dL (8.5-10.1); Chloride 106 mmol/L (98-107); EST Glomerular Filtration Rate 96 mL/min (>60); Est Glom Filt Rate - Afr Amer 116 mL/min (>60); Globulin 3.3 g/dL (2.2-4.2); Glucose 128 mg/dL (74-106); Potassium 3.7 mmol/L (3.5-5.1); Protein, Total 6.9 g/dL (6.4-8.2); Sodium Level 137 mmol/L (136-145)
[2023-03-25 09:02] LABS: Hematocrit 47.5 % (40-54); Hemoglobin 15.4 g/dL (13.0-16.5); Mean Corp Hgb Conc 32.4 g/dL (32-36); Mean Corpuscular Volume 86.4 fL (80-94); Platelet Count 200 K/mm3 (150-450); RBC Distribution Width CV 13.3 % (11.6-14.6); RBC Distribution Width SD 41.7 fl (35.1-43.9)
== END | disposition home or self-care (01) ==
LOC: LAB 16:37
PROVIDERS: PCP Internal Medicine; Referring Provider Internal Medicine Infectious Disease; Visit Provider Internal Medicine Infectious Disease
DX: M86.8X7 Other osteomyelitis, ankle and foot (principal)
CPT/HCPCS: 36415; 80048; 80076; 85027; 85652

== ENCOUNTER → 2023-05-15 | Outpatient (CLI) | payer OTHER, SELFPAY ==
[2023-05-15 15:33] LABS: Hematocrit 48.4 % (40-54); Hemoglobin 15.9 g/dL (13.0-16.5); Mean Corp Hgb Conc 32.9 g/dL (32-36); Mean Corpuscular Hgb 27.9 pg (27.0-32.0); Mean Corpuscular Volume 85.1 fL (80-94); Platelet Count 209 K/mm3 (150-450); RBC Distribution Width CV 13.6 % (11.6-14.6); Red Blood Count 5.69 M/mm3 (4.6-6.2); White Blood Count 8.7 K/mm3 (4.4-11.0)
[2023-05-15 15:58] LABS: Hemoglobin A1c 6.1 % (3.8-5.6)
[2023-05-15 16:02] LABS: ALB/GLOB Ratio 1.1 RATIO (0.9-2.4); AST(SGOT) 20 U/L (15-37); Alanine Aminotransfer ALT/SGPT 38 U/L (16-61); Albumin, Serum 3.6 g/dL (3.2-5.0); Alkaline Phosphatase 91 U/L (45-117); Anion Gap 6 (5-15); BUN 14 mg/dL (7-18); BUN/Creat Ratio 19.4 RATIO (10-20); Calcium,Total 8.8 mg/dL (8.5-10.1); Chloride 106 mmol/L (98-107); Cholesterol 160 mg/dL (200); Creatinine, Serum 0.72 mg/dL (0.70-1.30); EST Glomerular Filtration Rate 124 mL/min (>60); Est Glom Filt Rate - Afr Amer 150 mL/min (>60); Globulin 3.4 g/dL (2.2-4.2); Glucose 136 mg/dL (74-106); High Density Lipoprotein 32 mg/dL; Sodium Level 138 mmol/L (136-145); Thyroid Stim Hormone (TSH) 0.98 uIU/mL (0.358-3.74); Triglycerides 105 mg/dL; Very Low Density Lipoprotein 21 mg/dL (5-40)
[2023-05-15 16:30] LABS: Microalbumin,Random Urine 8.4 mg/L (NO RANGE EST.)
[2023-05-18 12:07] LABS: C-Peptide 5.9 ng/mL (1.1-4.4)
== END | disposition home or self-care (01) ==
LOC: BIMLAB 12:28
PROVIDERS: PCP Internal Medicine; Visit Provider Nurse Practitioner
DX: E11.9 Type 2 diabetes mellitus without complications (principal)
CPT/HCPCS: 36415; 80053; 80061; 82043; 83036; 84443; 84681; 85027

== ENCOUNTER → 2023-09-16 | Outpatient (CLI) | payer OTHER, SELFPAY ==
[2023-09-16 12:57] LABS: Absolute Lymphocyte Count 2.86 X10^3/uL (0.83-4.51); Absolute Neutrophil Count 7.6 X10^3/uL (2.0-7.7); Basophil# 0.05 X10^3/uL; Basophil% 0.4 % (0-1); Eosinophil# 0.16 X10^3/uL; Eosinophils% 1.4 % (0-5); Lymphocyte # 2.86 X10^3/ul (0.83-4.51); Mean Corp Hgb Conc 33.3 g/dL (32-36); Mean Corpuscular Hgb 27.8 pg (27.0-32.0); Mean Corpuscular Volume 83.5 fL (80-94); Mean Platelet Vol. 9.8 fl (6.2-12.0); Monocyte# 0.74 X10^3/uL; Monocyte% 6.5 % (0-10); NRBC Flagged by Analyzer 0 % (0-5); Neutrophil # 7.57 X10^3/uL (2.7-7.7); Neutrophil % 66.3 % (47-70); Platelet Count 198 K/mm3 (150-450); RBC Distribution Width CV 14.1 % (11.6-14.6); RBC Distribution Width SD 41.9 fl (35.1-43.9); Red Blood Count 5.75 M/mm3 (4.6-6.2); White Blood Count 11.4 K/mm3 (4.4-11.0)
[2023-09-16 13:36] LABS: ALB/GLOB Ratio 1.1 RATIO (0.9-2.4); AST(SGOT) 16 U/L (15-37); Alanine Aminotransfer ALT/SGPT 34 U/L (16-61); Albumin, Serum 3.8 g/dL (3.2-5.0); Alkaline Phosphatase 89 U/L (45-117); Anion Gap 3 (5-15); BUN 14 mg/dL (7-18); Chloride 105 mmol/L (98-107); EST Glomerular Filtration Rate 128 mL/min (>60); Est Glom Filt Rate - Afr Amer 155 mL/min (>60); Globulin 3.5 g/dL (2.2-4.2); Glucose 104 mg/dL (74-106); Potassium 3.9 mmol/L (3.5-5.1); Protein, Total 7.3 g/dL (6.4-8.2); Sodium Level 138 mmol/L (136-145)
== END | disposition home or self-care (01) ==
LOC: LAB 12:25
PROVIDERS: PCP Nurse Practitioner; Referring Provider Podiatrist; Visit Provider Podiatrist
DX: L03.031 Cellulitis of right toe (principal)
CPT/HCPCS: 36415; 80053; 85025; 87070; 87075; 87077; 87186; 87205

== ENCOUNTER → 2023-10-07 | Outpatient (CLI) | payer OTHER, SELFPAY | END | disposition home or self-care (01) | LOC: LAB 14:00 | PROVIDERS: PCP Nurse Practitioner; Referring Provider Urology; Visit Provider Urology | DX: Z12.5 Encounter for screening for malignant neoplasm of prostate (principal) | CPT/HCPCS: 36415; 84153; G0103 ==

== ENCOUNTER → 2024-05-10 | Outpatient (CLI) | payer OTHER, SELFPAY | END | disposition home or self-care (01) | LOC: LABSPEC 16:39 | PROVIDERS: PCP Internal Medicine; Visit Provider Podiatrist | DX: L03.115 Cellulitis of right lower limb (principal) | CPT/HCPCS: 87070; 87077; 87186; 87205 ==

== ENCOUNTER 2024-05-13 06:21 | Day surgery (SDC) | payer OTHER, SELFPAY ==
[2024-05-13] VITALS (8 sets, daily range): BP systolic 98–119; BP diastolic 67–75; PULSE 79–94; RESP 16–83; TEMP 36.2–37.1; O2SAT 94–98; BMI 41.5
[2024-05-13 07:11] LABS: Bedside Glucose 97 mg/dL (74-106)
--- NOTE | 2024-05-13 07:13 | PCM.PRE.AN2 ---
ASA Classification* ASA Classification ASA Classification: 3 Assessment & Plan Anesthesia* Anesthesia Assessment Anesthesia Assessment: Discussed sedation and/or anesthesia options, risks, benefits, and alternatives with patient/parents/legal guardian/POA. Questions invited. The patient/parents/legal guardian/POA seems to understand and agrees to proceed with anesthesia plan. Reviewed the physical assessment, medical history, allergy history and patient home medications list prior to surgery/procedure/anesthetic and documented any changes. Performed airway and anesthesia risk assessments. Anesthesia Type Anesthesia Type: MAC History Source History Obtained from:: Patient and Chart Anesthesia Focused Assessment* Temperature: 97.8 F Pulse Rate: 94 Blood Pressure: 119/75 Respiratory Rate: 20 Pulse Ox: 98 Oxygen Delivery Method: Room Air Airway Assessment Mouth opens: >3 cm Mallampati Score: II Teeth Condition: Intact Neck Range of motion (ROM): Full ROM Focused Labs Anesthesia Preop lab: CBC WBC 11.4 K/mm3 (4.4-11.0) H 09/16/23 12:09/16/23 RBC 5.75 M/mm3 (4.6-6.2) 09/16/23 12:09/16/23 Hgb 16.0 g/dL (13.0-16.5) 09/16/23 12:09/16/23 Hct 48.0 % (40-54) 09/16/23 12:09/16/23 Plt Count 198 K/mm3 (150-450) 09/16/23 12:09/16/23 CHEMISTRY Potassium 3.9 mmol/L (3.5-5.1) 09/16/23 12:09/16/23 Sodium 138 mmol/L (136-145) 09/16/23 12:09/16/23 Magnesium 1.8 mg/dL (1.6-2.6) 02/24/23 13:15 02/24/23 Phosphorus 3.1 mg/dL (2.5-4.9) 04/28/21 07:04/28/21 BUN 14 mg/dL (7-18) 09/16/23 12:09/16/23 Creatinine 0.70 mg/dL (0.70-1.30) 09/16/23 12:26 07/30/24 Glucose 104 mg/dL (74-106) 09/16/23 12:26 09/16/23 POC Glucose 97 mg/dL (74-106) 05/13/24 06:44 05/13/24 TSH 0.98 uIU/mL (0.358-3.74) 05/15/23 12:28 05/15/23 COAG PT 14.9 SECONDS (11.7-14.9) 07/24/19 21:38 07/24/19 Pre-Assessment Diagnosis/Proposed Procedure Planned Operative Procedure(s): COLONOSCOPY-OA Anesthesia History Anesthesia History - director health: Anesthesia History - director health Hx Hospitalization No 05/10/24 09:56 Any Problems With Anesthesia No 05/10/24 09:56 Cholinesterase deficiency No 05/10/24 09:56 You/Your Family Experience No 05/10/24 09:56 fever (hyperthermia) with Relationship Recent Exposure to Contagious No 05/13/24 06:40 Disease Does patient have nerve No 05/10/24 09:56 stimulator Patient instructed to have device shut off --Does patient have Pacemaker No 05/13/24 06:40 or ICD? When Was Last Pacemaker Check QUESTION #4 FULL TEXT: You/Your Family Experience fever (hyperthermia) with Anesthesia Last Oral Intake Last Oral intake: Last Oral Intake NPO since 05:00 05/13/24 06:40 Meds taken in AM with sips of No 05/13/24 06:40 water? Meds patient instructed to take am of surgery Any additional information?: Yes NPO since: 05:00 (Patient finished prep at 5 AM.) PONV PONV - director health: PONV - director health Female No 05/10/24 09:56 HX of Motion Sickness No 05/10/24 09:56 HX of N/V After Surgery No 05/10/24 09:56 Non-Smoker Yes 05/10/24 09:56 Duration of Surgery greater No 05/10/24 09:56 than 60 minutes Number of Risk Factors 1 05/10/24 09:56 PONV Score Low Risk 05/10/24 09:56 Height & Weight Height & Weight: Anesthesia: Height & Weight Height 6 ft 3 in 05/13/24 06:40 Weight: 150.6 kg 05/13/24 06:40 Body Mass Index (BMI) 41.5 05/13/24 06:40 Respiratory Assessment Respiratory Assessment - director health: Respiratory Tract Infection Hx - director health Hx Respiratory Tract Infection No 05/10/24 09:56 STOP Sleep Apnea STOP Sleep Apnea - director health: STOP Sleep Apnea - director health Hx Hypertension No 05/10/24 09:56 Hx Sleep Apnea No 05/10/24 09:56 CPAP No 05/10/24 09:56 BIPAP No 05/10/24 09:56 Do you snore loudly (louder No 05/10/24 09:56 than talking or can be heard Do you often feel tired/ No 05/10/24 09:56 fatigued/ sleepy during daytime? Has anyone observed you stop No 05/10/24 09:56 breathing during sleep? STOP Results Negative 05/10/24 09:56 QUESTION #5 FULL TEXT : Do you snore loudly (louder than talking or can be heard through closed doors)? Tobacco Use History Tobacco Use History - director health: Tobacco Use History - director health Tobacco Use Smoking Status Former smoker 05/10/24 09:56 Hx Tobacco Use No 05/10/24 09:56 Years Smoking Packs Smoked per Day Smoking Cessation Date was Yes - quit smoking within 15 05/10/24 09:56 within the last 15 years years Hx Smoking Cessation Date Hx Smoking Cessation Counseling Hematologic Medial History Hematologic Hx - director health: Hematologic Medical Hx - rn clinical documentation specialist Hx of Blood Transfusion No 05/10/24 09:56 Hx of Transfusion in last 3 No 05/10/24 09:56 Months Date of Last Transfusion (if within last 3 months) Ever experience any problems No 05/10/24 09:56 with transfusion(s)? Specify any problems Hx of Preganancy in last 3 N/A 05/10/24 09:56 Months Nurse Filling Out Transfusion VCHRISTIN 05/10/24 09:56 & Questions: Date: 05/10/24 05/10/24 09:56 Time: 09:56 05/10/24 09:56 Patient unable to answer at this time (ie. confused, unrespo /Reproduction History /Reproductive History - director health: /Reproductive Hx- director health Hx Now No 05/10/24 09:56 Gestational Age (in weeks): EDC: Hx Hx Para Hx Section SAB No 05/10/24 09:56 PFSH Medical History Wears glasses Open wound Diabetes Arthritis Family history of malignant neoplasm of colon in father Acute osteomyelitis of toe of left foot 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 Hyperglycemia Cellulitis of right lower extremity Former smoker COVID-19 Morbid obesity Home Medications ?Medication ?Instructions ?Recorded ?Last Taken ?Type alfuzosin 10 mg tablet,extended 10 mg PO DAILY 02/24/23 05/12/24 History release 24 hr 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 meter,continuous #1 ea 05/15/23 Unknown Rx (FreeStyle Zay 3 [place]) 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 sensor (FreeStyle #4 ea 05/15/23 Unknown Rx Zay 3 Sensor device) alcohol swabs (Alcohol Prep Pads) 1 pad topical .PRN #200 ea 01/14/24 Unknown Rx blood sugar diagnostic (Contour #100 ea 01/14/24 Unknown Rx Test Strips) metformin 500 mg tablet 500 mg PO QDAY #90 tabs 01/14/24 05/12/24 Rx multivitamin 1 tab PO QDAY 03/25/24 05/10/24 History semaglutide 2 mg/dose (8 mg/3 mL) 2 mg (0.75 mL) subcut QWEEK #3 mL 04/12/24 05/01/24 Rx subcutaneous pen injector Allergy/AdvReac Type Severity Reaction Status Date / Time No Known Allergies Allergy Verified 05/13/24 06:38 Family History Father Colon cancer, Onset Age: 40 Diabetes Skin cancer Mother Hypertension Surgical History Hx of amputation of lesser toe History of tonsillectomy Hx of foot surgery History of ankle surgery Social History adopted: No household members: significant other current occupational status: 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 current occupational exposures/hazards: No pets and animals: Yes pets and animals: dog(s) history of recent travel: No sexually active: Yes Smoking Status: Former smoker quit date: 02/18/04 pack-years: 10 Tobacco: How many years used: 10 Smokeless tobacco user: other second hand exposure: No alcohol intake: current alcohol intake frequency: holidays/special occasions only substance use type: does not use well-balanced diet: daily or most days caffeine: Yes eating out: 1-3 times/week during the past year weight has: decreased > 10 lbs frequency: 1-2 times per week duration: 15-30 minutes/day ethan/faith: Buddhist seatbelt use: always do you feel safe at home: Yes Review of Systems (Anesthesia) ROS Narrative System reviewed and no additional complaints, except as documented.
--- NOTE | 2024-05-13 07:24 | H&P.OPEN ---
HPI - General HPI Narrative DANIELLE DUMAS, is a 48 M who presents for screening colonoscopy. This is his first colonoscopy. He does have family history of colon cancer in his father at a young age. He reports no abdominal pain or blood in the stool. 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 Hyperglycemia Cellulitis of right lower extremity Former smoker COVID-19 Morbid obesity Home Medications ?Medication ?Instructions ?Recorded ?Last Taken ?Type alfuzosin 10 mg tablet,extended 10 mg PO DAILY 02/24/23 05/12/24 History release 24 hr 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 meter,continuous #1 ea 05/15/23 Unknown Rx (FreeStyle Zay 3 [place]) 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 sensor (FreeStyle #4 ea 05/15/23 Unknown Rx Zay 3 Sensor device) alcohol swabs (Alcohol Prep Pads) 1 pad topical .PRN #200 ea 01/14/24 Unknown Rx blood sugar diagnostic (Contour #100 ea 01/14/24 Unknown Rx Test Strips) metformin 500 mg tablet 500 mg PO QDAY #90 tabs 01/14/24 05/12/24 Rx multivitamin 1 tab PO QDAY 03/25/24 05/10/24 History semaglutide 2 mg/dose (8 mg/3 mL) 2 mg (0.75 mL) subcut QWEEK #3 mL 04/12/24 05/01/24 Rx subcutaneous pen injector Allergy/AdvReac Type Severity Reaction Status Date / Time No Known Allergies Allergy Verified 05/13/24 06:38 Family History Father Colon cancer, Onset Age: 40 Diabetes Skin cancer Mother Hypertension Surgical History Hx of amputation of lesser toe History of tonsillectomy Hx of foot surgery History of ankle surgery Social History adopted: No household members: significant other current occupational status: 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 current occupational exposures/hazards: No pets and animals: Yes pets and animals: dog(s) history of recent travel: No sexually active: Yes Smoking Status: Former smoker quit date: 02/18/04 pack-years: 10 Tobacco: How many years used: 10 Smokeless tobacco user: other second hand exposure: No alcohol intake: current alcohol intake frequency: holidays/special occasions only substance use type: does not use well-balanced diet: daily or most days caffeine: Yes eating out: 1-3 times/week during the past year weight has: decreased > 10 lbs frequency: 1-2 times per week duration: 15-30 minutes/day ethan/rastafarian: Temple seatbelt use: always do you feel safe at home: Yes Past Medical/Surgical History Planned Operation Planned Operative Procedure(s): COLONOSCOPY-OA S.O.S: No Previous Hospitalizations/Surgeries HX Hospitalizations: No HX of Surgeries: TONSILLECTOMY LEG FRACTURE left foot surgery x2 Any Problems With Anesthesia: No You/Your Family Experience Fever (Hyperthermia) With Anes: No Cholinesterase deficiency: No Cardiovascular Hx Chest Pain within Last 2 months: No Hx of Irregular Heartbeat and/or Afib: No Hx Heart Attack: No Hx Congestive Heart Failure: No Hx Rheumatic Fever: No Hx Hypertension: No Hx Internal Defibrillator: No Hx Pacemaker: No Hx Cardiac Catheterization: No Hx Cardiac Surgery/Stents/Etc.: No Hx Stress Test: No Hx Pain in Legs when Walking/Leg Cramps: No Respiratory Chronic Cough: No HX of Shortness of Breath: No Hoarseness: No Hx Chronic Obstructive Pulmonary Disease (COPD): No Hx Asthma: No Hx Emphysema: No Hx Sleep Apnea: No CPAP: No BIPAP: No Hx Respiratory Tract Infection/Cold (presently): No Do You Snore Loudly (louder than talking or can be heard): No Do You Often Feel Tired/ Fatigued/ Sleepy Dring Daytime?: No Has Anyone Observed You Stop Breathing During Sleep?: No Result (for STOP score): Negative Hx Smoking: Yes (QUIT 15YRS AGO) Smoking Status: Former smoker Gastrointestinal Controlled With Meds: No Hx Gastrointestinal Disorders: No Hx Gastrointestinal Bleed: No Hx Ulcer: No Hx Hiatal Hernia: No Difficulty Chewing/Swallowing: No Special diet followed at home: No Hx Unplanned Weight Loss of 20#: No HX Unplanned Weight Gain of 20#: No Neurological Hx Seizures: No HX Syncope/Blackout Spells/Unconsciousness: No Hx Transient Ischemic Attacks (TIA): No Hx Multiple Sclerosis: No Hx Parkinson's Disease: No Hx Head/Neck Injury: No Hx Headaches: No Hx Back Injury/Pain: No Recent Onset of Speech Difficulty: No Restless Legs: No Does patient have nerve stimulator: No Blood Disorder Hx Leukemia: No Bleeding Tendencies: No Hx Deep Vein Thrombosis: No Hx High Cholesterol: No Blood Transmitted Disease: No Hx Hepatitis: No Hx Cirrhosis: No Hx Anemia: No Hx Blood Disorders: No Reproduction : No Genitourinary Hx Renal Disease: No Hx Dialysis: No Musculoskeletal Hx Arthritis: Yes (TOES) Hx Rheumatoid Arthritis: No Hx Gout: No Recent Onset of an Orthopedic Problem: No Endocrine Hx Diabetes: Yes Insulin: No Thyroid Disease: No Hx Steroid Therapy: No Psycho/Social Hx Substance Use: No Hx Alcohol Use: Yes (occasionally) Hx Anxiety: No Hx Depression: No Mental Illness: No Hx Dementia: No Miscellaneous Hx Cancer: No Recent Exposure to Contagious Disease: No Hx of C-Diff: No Any Loose Teeth: No Allergies No Known Allergies Allergy (Verified 05/13/24 06:38) Maternal: Family History Father Colon cancer, Onset Age: 40 Diabetes Skin cancer Mother Hypertension Hypertension Paternal: Family History Father Colon cancer, Onset Age: 40 Diabetes Skin cancer Mother Hypertension Cancer (Colon cancer.) and Diabetes Discharge Is Pt Admitted From a Skilled Nursing, or a Penitentiary: No After D/C, Where Do you Plan to Go: Return Home Vital Signs Vital Signs Vital Signs: 05/13/24 06:40 05/13/24 06:40 05/13/24 07:18 Temperature 97.8 F 97.8 F Temperature Source Temporal Pulse Rate 94 94 Respiratory Rate 20 H 20 H Respiratory Pattern Normal Blood Pressure 119/75 119/75 Blood Pressure Mean 89 Blood Pressure Source Monitor Blood Pressure Position Semi-Fowlers Blood Pressure Location Right Arm Pulse Ox 98 98 Oxygen Delivery Method Room Air Room Air Weight Weight: 332 lb 0.258 oz Body Mass Index (BMI) 41.5 Physical Exam Const alert and oriented x3 HEENT normocephalic Eyes PERRL Resp normal respiratory effort and normal air movement Cardio regular rate and regular rhythm GI soft to palpation, non-tender and non-distended Extremity normal to inspection Assessment & Plan Assessment/Plan (1) Encounter for screening for malignant neoplasm of colon: PLAN: I explained endoscopy in detail to the patient. I explained the risks including but not limited to stroke or heart attack with anesthesia, perforation of the GI tract, bleeding, infection. I explained that any of these could necessitate further emergency surgery. The patient understands and all questions were answered sufficiently. The patient wishes to proceed with procedure. Given the patient's family history I do recommend that even if we do not find any polyps he repeat screening colonoscopy every 5 years Alessandro Andrea MD Pager: [facility] [address] [place] [address], [address] [place] [address] Office: Surgery Risks - Colonoscopy Risks Include but are not Limited To: Risks include but are not limited to: Bleeding, perforation requiring further surgery, inability to complete colonoscopy requiring barium enema.
--- NOTE | 2024-05-13 07:30 | COLBX_PTH ---
PATIENT: HOMER DUMAS LOC: EN U#:[id number] AGE/SX: 48/M ROOM: RE05/13/[address]: Dr. Alessandro Andrea MD : 1975 BED: DIS: 05/13/2024 SPEC #: [id number] RECD: 05/13/24 09:38 STATUS: CANDY FABIANLatrice #: [id number] BEVERLY: 05/13/24 07:[address]: Alessandro Andrea DEPT: SURGICAL PATHOLOGY RECD BY: Troy Hernandez ENTERED: 05/13/24 09:39 SP TYPE: COLON BX OTHR DR: Dr. Milla Horner MD Tissues: A - Descending colon Procedures: Surgery Specimen Level IV HEADER OPERATION: Colonoscopy with polypectomy PRE-OP DIAGNOSIS: Screening TISSUE SUBMITTED: A- Descending colon polyp MICROSCOPIC DIAGNOSIS A. DESCENDING COLON, POLYP, POLYPECTOMY: -TUBULAR ADENOMA. MICROSCOPIC DESCRIPTION Slides are reviewed. GROSS DESCRIPTION A. Received in formalin labeled, Homer Dumas, and designated polyp descending colon, are four ivy tissue fragments aggregating to 0.5 x 0.5 x 0.2 cm. Totally submitted in one cassette. TANVI 05/13/2024 CPT:24646
--- NOTE | 2024-05-13 07:55 | OP.COLON_ITS ---
Patient Name: Homer Chino Procedure Date: 05/13/2024 7:13 AM Date of : 1975 Age: 48 Procedure: Colonoscopy Indications: Screening in patient at increased risk: Family history of 1st-degree relative with colorectal cancer before age 60 years Providers: Alessandro Andrea MD Medicines: Propofol per Anesthesia Patient Profile: This is a 48 year old male. Refer to note in patient chart for documentation of history and physical. Last Colonoscopy: none. The patient's first colonoscopy is today. Complications: No immediate complications. Estimated blood loss: Minimal. Procedure: Pre-Anesthesia Assessment: - Prior to the procedure, a History and Physical was performed, and patient medications and allergies were reviewed. The patient's tolerance of previous anesthesia was also reviewed. The risks and benefits of the procedure and the sedation options and risks were discussed with the patient. All questions were answered, and informed consent was obtained. Prior Anticoagulants: The patient has taken no anticoagulant or antiplatelet agents. After reviewing the risks and benefits, the patient was deemed in satisfactory condition to undergo the procedure. After I obtained informed consent, the scope was passed under direct vision. Throughout the procedure, the patient's blood pressure, pulse, and oxygen saturations were monitored continuously. The Colonoscope was introduced through the anus and advanced to the cecum, identified by appendiceal orifice and ileocecal valve. The colonoscopy was performed without difficulty. The patient tolerated the procedure well. The quality of the bowel preparation was good. The ileocecal valve, appendiceal orifice, and rectum were photographed. Scope In: 7:31:54 AM Scope Withdrawal Time 0 hours 9 minutes 57 seconds Scope Out: 7:49:28 AM Total Procedure Duration Time 0 hours 17 minutes 34 seconds Findings: The entire examined colon appeared normal on direct and retroflexion views. A small polyp was found in the descending colon. The polyp was removed with a cold snare. Resection and retrieval were complete. Impression: - The entire examined colon is normal on direct and retroflexion views. - No specimens collected. Recommendation: - Await pathology results. - Discharge patient to home. - Resume previous diet. - Continue present medications. - Repeat colonoscopy in 5 years for surveillance. Procedure Code(s): --- Professional --- 71672, Colonoscopy, flexible; with removal of tumor(s), polyp(s), or other lesion(s) by snare technique Diagnosis Code(s): --- Professional --- Z80.0, Family history of malignant neoplasm of digestive organs CPT copyright 2021 [employer]. All rights reserved. The codes documented in this report are preliminary and upon brake lining curer review may be revised to meet current compliance requirements. Alessandro Andrea MD 05/13/2024 7:55:43 AM This report has been signed electronically. Number of Addenda: 0 Note Initiated On: 05/13/2024 7:13 AM
--- NOTE | 2024-05-13 07:56 | OP.CCLET_ITS ---
05/13/2024 Milla Horner Md Re : Colonoscopy procedure for Homer Chino Dear Siri This procedure was performed on April. My impressions and recommendations are as follows: Impressions : - The entire examined colon is normal on direct and retroflexion views. - No specimens collected. Recommendations : - Await pathology results. - Discharge patient to home. - Resume previous diet. - Continue present medications. - Repeat colonoscopy in 5 years for surveillance. My findings are described in the full procedure note, which is enclosed. If I can be of further assistance, please feel free to contact me at Doctor phone number(s): , Work: . Sincerely, Alessandro Andrea MD 05/13/2024 7:55:43 AM This report has been signed electronically.
--- NOTE | 2024-05-13 07:57 | PCM.POST.ANE ---
Anesthesia: Postop Eval I Current Vital Signs Temperature: 97.1 F Pulse Rate: 86 Blood Pressure: 100/68 Respiratory Rate: 16 Pulse Ox: 95 Assessment Airway patent: Yes Spontaneous unlabored respirations: Yes nausea: No Vomiting: No Anesthesia Complication: No Fluid Hydration Crystalloid volume administer (ml): 30 Total IV fluid infused: 30 Progress Note Anesthesia document: Postop Eval 1 completed: Yes
--- NOTE | 2024-05-13 22:24 | POSTOPAN2_ITS ---
Anesthesia Postop Eval I Sum Postop Eval Completion status Anesthesia document: Postop Eval 1 completed: Yes Anesthesia Postop Eval I Summary Anesthesia Postop Eval I Summary: Anesthesia Postop Eval I: Assessment Summary Airway patent Yes 05/13/24 07:57 BUSINESS EMPLOYMENT SPECIALIST.TNES Spontaneous unlabored Yes 05/13/24 07:57 BUSINESS EMPLOYMENT SPECIALIST.TNES respirations Mental status nausea No 05/13/24 07:57 BUSINESS EMPLOYMENT SPECIALIST.TNES Vomiting No 05/13/24 07:57 BUSINESS EMPLOYMENT SPECIALIST.TNES Anesthesia Postop Eval I: Fluid Summary Crystalloid volume administer 30 05/13/24 07:57 BUSINESS EMPLOYMENT SPECIALIST.TNES (ml) Colloids volume administered ( ml) Blood Product volume administered (ml) Total IV fluid infused 30 05/13/24 07:57 BUSINESS EMPLOYMENT SPECIALIST.TNES Anesthesia Postop Eval I: Summary Notes Anesthesia Complication No 05/13/24 07:57 BUSINESS EMPLOYMENT SPECIALIST.TNES Anesthesia Complication Comment: Post-operative progress note Anesthesia: Postop Eval II Evaluation Mental status: Awake and Calm Pain Level: 0 nausea: No Vomiting: No Complications Anesthesia Complication: No
--- NOTE | 2024-05-13 22:24 | PCM.POSTANE2 ---
Anesthesia Postop Eval I Sum Postop Eval Completion status Anesthesia document: Postop Eval 1 completed: Yes Anesthesia Postop Eval I Summary Anesthesia Postop Eval I Summary: Anesthesia Postop Eval I: Assessment Summary Airway patent Yes 05/13/24 07:57 PNEUMATIC SYSTEM CONVEYOR OPERATOR.TNES Spontaneous unlabored Yes 05/13/24 07:57 PNEUMATIC SYSTEM CONVEYOR OPERATOR.TNES respirations Mental status nausea No 05/13/24 07:57 PNEUMATIC SYSTEM CONVEYOR OPERATOR.TNES Vomiting No 05/13/24 07:57 PNEUMATIC SYSTEM CONVEYOR OPERATOR.TNES Anesthesia Postop Eval I: Fluid Summary Crystalloid volume administer 30 05/13/24 07:57 PNEUMATIC SYSTEM CONVEYOR OPERATOR.TNES (ml) Colloids volume administered ( ml) Blood Product volume administered (ml) Total IV fluid infused 30 05/13/24 07:57 PNEUMATIC SYSTEM CONVEYOR OPERATOR.TNES Anesthesia Postop Eval I: Summary Notes Anesthesia Complication No 05/13/24 07:57 PNEUMATIC SYSTEM CONVEYOR OPERATOR.TNES Anesthesia Complication Comment: Post-operative progress note Anesthesia: Postop Eval II Evaluation Mental status: Awake and Calm Pain Level: 0 nausea: No Vomiting: No Complications Anesthesia Complication: No
== END 2024-05-13 08:29 | disposition home or self-care (01) ==
LOC: EN 06:22 → AC 06:23
PROVIDERS: PCP Internal Medicine; Referring Provider Internal Medicine; Visit Provider Surgery
PROC: 0DJD8ZZ Inspection of Lower Intestinal Tract, Via Natural or Artificial Opening Endoscopic (ICD-10-PCS; CPT 45378; principal; 2024-05-13 07:25)
DX: Z12.11 Encounter for screening for malignant neoplasm of colon (principal); E11.9 Type 2 diabetes mellitus without complications; Z87.891 Personal history of nicotine dependence; Z79.84 Long term (current) use of oral hypoglycemic drugs; Z80.0 Family history of malignant neoplasm of digestive organs; D12.4 Benign neoplasm of descending colon
CPT/HCPCS: 45385; 82962; 88305; A4216

== ENCOUNTER 2024-07-01 15:11 | Emergency (ER) | payer OTHER, SELFPAY ==
[2024-07-01 15:11] VITALS: BP 137/82; PULSE 96; RESP 18; TEMP 37; O2SAT 98; BMI 39.1
--- NOTE | 2024-07-01 15:48 | RAD_ITS ---
PROCEDURE: ANKLE MIN 3 VIEWS 07/01/2024 REASON FOR EXAM: INJURY TECHNIQUE: 3 views of the right ankle COMPARISON: None FINDINGS: Bones: Old avulsion fracture of the medial malleolus. Calcaneal spurs. Joints: Degenerative changes of the tarsal bones. Soft tissues: Soft tissue swelling. Other: RAD/Ankle min 3 Views IMPRESSION: Degenerative changes. Calcaneal spurs. Reading Location: [facility]
--- NOTE | 2024-07-01 15:48 | RAD_ITS ---
EXAM: Right tibia and fibula. CLINICAL HISTORY: Pain following injury. COMPARISON: None TECHNIQUE: Four views were obtained. FINDINGS: Old avulsion fracture of the medial malleolus. Calcaneal spur. Degenerative changes of the tail 0 cuboid bone. RAD/Tibia & Fibula 2 Views IMPRESSION: No acute abnormality is seen. Reading Location: [id number]
[2024-07-01 18:10] VITALS: BP 134/80; PULSE 83; RESP 18; O2SAT 98
--- NOTE | 2024-07-01 18:23 | ED.VIS.LOWEX ---
HPI History of Present Illness Chief Complaint: Lower Extremity Injury Informant: patient Narrative Narrative: Patient presents to the emergency room with 2 distinct complaints. First, he went to jump over a ditch and landed injuring his right ankle. States he has had a prior tibialis anterior tendon injury and this feels similar and that he can pull his toes back towards his head as well. He notes swelling over the anterior ankle. He denies any other injuries from the jump. He did not fall to the ground. Second, he notes some redness over the anterior lateral left leg. He notes he is a diabetic. Patient states over the past couple days he has felt feverish at home. He has not had anything to this extent like this in the past. He notes he did have some diabetic foot infections. [facility] Medical History Wears glasses Open wound Diabetes Arthritis Family history of malignant neoplasm of colon in father Acute osteomyelitis of toe of left foot 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 Hyperglycemia Cellulitis of right lower extremity Former smoker COVID-19 Morbid obesity Home Medications ?Medication ?Instructions ?Recorded ?Last Taken ?Type alfuzosin 10 mg tablet,extended 10 mg PO DAILY 02/24/23 05/12/24 History release 24 hr 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 meter,continuous #1 ea 05/15/23 Unknown Rx (FreeStyle Zay 3 [place]) 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 sensor (FreeStyle #4 ea 05/15/23 Unknown Rx Zay 3 Sensor device) alcohol swabs (Alcohol Prep Pads) 1 pad topical .PRN #200 ea 01/14/24 Unknown Rx blood sugar diagnostic (Contour #100 ea 01/14/24 Unknown Rx Test Strips) metformin 500 mg tablet 500 mg PO QDAY #90 tabs 01/14/24 05/12/24 Rx multivitamin 1 tab PO QDAY 03/25/24 05/10/24 History semaglutide 2 mg/dose (8 mg/3 mL) 2 mg (0.75 mL) subcut QWEEK #3 mL 06/23/24 Unknown Rx subcutaneous pen injector cephalexin 500 mg capsule 500 mg PO Q6 #40 CAPSULES 07/01/24 Unknown Rx Allergy/AdvReac Type Severity Reaction Status Date / Time No Known Allergies Allergy Verified 07/01/24 15:14 Family History Father Colon cancer, Onset Age: 40 Diabetes Skin cancer Mother Hypertension Surgical History Hx of amputation of lesser toe History of tonsillectomy Hx of foot surgery History of ankle surgery Social History adopted: No household members: significant other current occupational status: 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 current occupational exposures/hazards: No pets and animals: Yes pets and animals: dog(s) history of recent travel: No sexually active: Yes Smoking Status: Former smoker quit date: 02/18/04 pack-years: 10 Tobacco: How many years used: 10 Smokeless tobacco user: other second hand exposure: No alcohol intake: current alcohol intake frequency: holidays/special occasions only substance use type: does not use well-balanced diet: daily or most days caffeine: Yes eating out: 1-3 times/week during the past year weight has: decreased > 10 lbs frequency: 1-2 times per week duration: 15-30 minutes/day ethan/confucianism: Latter-Day seatbelt use: always do you feel safe at home: Yes ROS ROS ED Constitutional Constitutional ED: Reports fever(s) and subjective; Denies chills or weight loss Eyes Eyes: Denies change in vision or diplopia ENT ENT ED: Denies ear pain, rhinorrhea or sore throat Cardiovascular Cardiovascular: Denies chest pain, orthopnea, palpitations or racing heartbeat Respiratory/Chest Respiratory/Chest: Denies cough, dyspnea or orthopnea Gastrointestinal Gastrointestinal: Denies abdominal pain, diarrhea, nausea or vomiting Genitourinary Genitourinary ED: Denies dysuria, hematuria or urinary frequency Musculoskeletal Musculoskeletal: Reports other Details: See history of present illness ; Denies arthralgias or myalgias Integumentary Reports rash; Denies abscess Neurologic Neurologic: Denies headache(s) or weakness Psychiatric Psychiatric: Denies anxiety, depression, suicidal ideation or suicidal thoughts Endocrine Endocrinology: Denies polydipsia, polyphagia or polyuria Allergic/Immunologic Allergic/Immunologic ED: Denies mouth swelling, tongue swelling or urticaria EXAM Physical Exam Const Vital Signs: 07/01/24 15:11 07/01/24 18:10 Temperature 98.6 F Temperature Source Oral Pulse Rate 96 83 Respiratory Rate 18 18 Blood Pressure 137/82 H 134/80 H Blood Pressure Mean 100 98 Pulse Ox 98 98 Oxygen Delivery Method Room Air Positive well nourished, well developed and obese General Appearance ED: well developed and NAD Nutritional Appearance: obese HEENT Reports normocephalic, head/scalp atraumatic and moist mucous membranes Eyes PERRL and EOMs intact bilaterally Neck no lymphadenopathy, supple and no JVD Resp normal respiratory effort and clear to auscultation bilaterally Cardio regular rate, regular rhythm and no murmurs GI normal to inspection, nondistended, normoactive bowel sounds and non-tender Palpation: soft Back/Spine no CVA tenderness and normal ROM Extremity Extremity Narrative: Left anterior lateral leg demonstrates increased warmth and erythema. No lymphangitic streaking. There are few breaks in the dry skin with scabs that could have possibly seeded a cellulitis. Calf is nontender no palpable cords. Right ankle demonstrates swelling above the ankle mortise and malleolus in the anterior aspect. He is able to pull his toes back towards his head and I can visualize the tibialis anterior tendon [place]. Neurovascular appears intact. General Extremety ED: Negative for edema General Extremity: Negative for edema Neuro oriented x3 and CN's II-XII intact bilaterally Sensorium / Orientation: alert Motor Exam: strength 5/5 throughout Psych mental status grossly normal Mood & Affect: Negative for depressed or tearful Skin no rashes or lesions noted and no wounds MDM MDM MDM Narrative Medical decision making narrative: Differential diagnosis includes but not limited to cellulitis lymphangitis peripheral vascular disease ankle sprain ankle fracture tendon injury ligamentous injury My independent interpretation of the plain films of the right ankle is no acute fracture. Please see radiologist read which includes degenerative changes and spurs. Patient has crutches he also has a boot that he is comfortable wearing. We talked about conservative treatment with ice elevation. He will follow-up with Dr Benites if not improved follow-up with primary care patient is comfortable with this plan weightbearing as tolerated History & Record Review Discussion w/independent historian: Patient Additional record(s) reviewed:: Prior inpatient record, Prior outpatient record, Prior ED visit and Prior labs Radiography Diagnostic Testing: Clinical Impression(s) from Imaging Studies Ankle X-Ray 07/01/24 15:48 IMPRESSION: Degenerative changes. Calcaneal spurs. Reading Location: [id number] Tibia/Fibula X-Ray 07/01/24 15:48 IMPRESSION: No acute abnormality is seen. Reading Location: [id number] Discharge Plan Triage Chief Complaint: Lower Extremity Injury ED Provider: Ayad Baker Dx/Rx/DC Orders Clinical Impression: Type 2 diabetes mellitus, Left leg cellulitis, High ankle sprain Instructions: ED Cellulitis, ED Ankle Sprain (Adult) Prescriptions: New cephalexin 500 mg capsule 500 mg PO Q6 Qty: 40 0RF No Action (DME) FreeStyle Zay 3 [place] Misc See Rx Instructions .Route Qty: 1 0RF Rx Instructions: As directed (DME) FreeStyle Zay 3 Sensor Device See Rx Instructions .Route Qty: 4 12RF Rx Instructions: As directed semaglutide 2 mg/dose (8 mg/3 mL) pen injector 2 mg subcut QWEEK Qty: 3 1RF Rx Instructions: x4 weeks multivitamin Tablet 1 tab PO QDAY alfuzosin 10 mg tablet extended release 24 hr 10 mg PO DAILY metformin 500 mg tablet 500 mg PO QDAY Qty: 90 1RF (DME) Contour Test Strips Strip See Rx Instructions .Route Qty: 100 1RF Rx Instructions: As directed alcohol swabs [Alcohol Prep Pads] Pads, Medicated 1 pad topical .PRN Qty: 200 0RF Primary Care Provider: Milla Horner Referrals: Milla Horner MD [Primary Care Provider] - 3-5 Days if not improving Eliu Benites DPM [Med Staff - Active Staff] - 1-2 Weeks Print Language: Maldivian Disposition Disposition: Home, Self Care
== END 2024-07-01 18:30 | disposition home or self-care (01) ==
PROVIDERS: Emergency Provider Emergency Medicine; PCP Internal Medicine; Visit Provider Emergency Medicine
DX: L03.116 Cellulitis of left lower limb (principal); E11.9 Type 2 diabetes mellitus without complications; Z87.891 Personal history of nicotine dependence; S93.492A Sprain of other ligament of left ankle, initial encounter; Z79.85 Long-term (current) use of injectable non-insulin antidiabetic drugs; E66.9 Obesity, unspecified; X58.XXXA Exposure to other specified factors, initial encounter
CPT/HCPCS: 73590; 73610; 99282

== ENCOUNTER 2024-07-07 08:59 | Inpatient (IN) | payer OTHER, SELFPAY ==
[2024-07-07] VITALS (11 sets, daily range): BP systolic 94–122; BP diastolic 46–88; PULSE 88–141; RESP 18–26; TEMP 36.3–38.4; O2SAT 93–100; BMI 41.5
--- NOTE | 2024-07-07 09:09 | EKG12_ITS ---
Test Reason : Blood Pressure : */* mmHG Vent. Rate : 119 BPM Atrial Rate : 119 BPM P-R Int : 156 ms QRS Dur : 80 ms QT Int : 292 ms P-R-T Axes : 34 13 9 degrees QTcB Int : 410 ms Sinus tachycardia Otherwise normal ECG Confirmed by MOO LEAL, HEIDY ([id number]), commissioning editor ALLIE SULLIVAN ([id number]) on 07/13/2024 6:39:50 AM Referred By: Confirmed By: HEIDY CORTÉS MD
--- NOTE | 2024-07-07 09:10 | EX.ED.DYSGE1 ---
HPI History of Present Illness Chief Complaint: Cellulitis Narrative Narrative: 48-year-old male presents with his parents with feelings of shakiness today. He relays history he has type 2 diabetes, and was seen in the emergency department last week for cellulitis of his left lower extremity. He had also sprained his right lower extremity. He is currently taking cephalexin and still has a few days left. While his cellulitis may have improved, he and his mother report that he had elevated temperature at 99 degrees, and he had to turn his car around because he felt very shaky. He denies fever outright but may feel chilled. No nausea or vomiting. No exacerbating or alleviating factors. [facility] Medical History Wears glasses Open wound Diabetes Arthritis Family history of malignant neoplasm of colon in father Acute osteomyelitis of toe of left foot 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 Hyperglycemia Cellulitis of right lower extremity Former smoker COVID-19 Morbid obesity Home Medications ?Medication ?Instructions ?Recorded ?Last Taken ?Type alfuzosin 10 mg tablet,extended 10 mg PO DAILY 02/24/23 05/12/24 History release 24 hr 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 sensor (FreeStyle #4 ea 05/15/23 Unknown Rx Zay 3 Sensor device) 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,parking analyst,cont #1 ea 05/15/23 Unknown Rx (FreeStyle Zay 3 [place]) alcohol swabs (Alcohol Prep Pads) 1 pad topical .PRN #200 ea 01/14/24 Unknown Rx blood sugar diagnostic (Contour #100 ea 01/14/24 Unknown Rx Test Strips) multivitamin 1 tab PO QDAY 03/25/24 05/10/24 History semaglutide 2 mg/dose (8 mg/3 mL) 2 mg (0.75 mL) subcut QWEEK #3 mL 06/23/24 Unknown Rx subcutaneous pen injector cephalexin 500 mg capsule 500 mg PO Q6 #40 CAPSULES 07/01/24 Unknown Rx metformin 500 mg tablet 500 mg PO DAILY #90 TABLETS 07/06/24 Unknown Rx Allergy/AdvReac Type Severity Reaction Status Date / Time No Known Allergies Allergy Verified 07/07/24 08:59 Family History Father Colon cancer, Onset Age: 40 Diabetes Skin cancer Mother Hypertension Surgical History Hx of amputation of lesser toe History of tonsillectomy Hx of foot surgery History of ankle surgery Social History adopted: No household members: significant other current occupational status: 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 current occupational exposures/hazards: No pets and animals: Yes pets and animals: dog(s) history of recent travel: No sexually active: Yes Smoking Status: Former smoker quit date: 02/18/04 pack-years: 10 Tobacco: How many years used: 10 Smokeless tobacco user: other second hand exposure: No alcohol intake: current alcohol intake frequency: holidays/special occasions only substance use type: does not use well-balanced diet: daily or most days caffeine: Yes eating out: 1-3 times/week during the past year weight has: decreased > 10 lbs frequency: 1-2 times per week duration: 15-30 minutes/day ethan/faith: Denominational seatbelt use: always do you feel safe at home: Yes ROS ROS ED ROS Narrative Review of systems positive for slightly elevated temperature of 99 ?F, feelings of shakiness. Being treated for left lower extremity cellulitis/redness, improved in color according to patient and family. No nausea or vomiting. No chest pain. No cough. No difficulty breathing. EXAM Physical Exam Narrative Exam Narrative: Afebrile. Vital signs noted. Nontoxic-appearing. Positive tachycardia, regular. Lungs clear to auscultation bilaterally. Abdomen soft and nontender without guarding or rebound. Positive bowel sounds. Neurological examination nonfocal, nonlateralizing. Inspection of the left lower extremity does show mild erythema on the anterior tibial surface of the left lower extremity, not completely circumferential, no lymphangitic streaking, no palpable cord. No crepitance. Const Vital Signs: 07/07/24 08:59 07/07/24 09:01 07/07/24 09:09 Temperature 98.7 F 98.7 F Temperature Source Oral Oral Pulse Rate 141 H 141 H Respiratory Rate 19 H 19 H Blood Pressure 109/88 H 109/88 H Blood Pressure Mean 95 95 Pulse Ox 100 98 Oxygen Delivery Method Room Air Room Air Room Air 05/21/25 10:52 Temperature 98.2 F Temperature Source Oral Pulse Rate 118 H Respiratory Rate 26 H Blood Pressure 96/56 L Blood Pressure Mean 69 Pulse Ox 95 Oxygen Delivery Method Room Air MDM MDM MDM Narrative Medical decision making narrative: The differential diagnosis does include but not limited to sepsis from cellulitis/skin infection versus dehydration versus anxiety versus viral syndrome. I reviewed the patient's prior records. Sepsis workup was pursued. Initially, he had a heart rate of 141 bpm and a soft blood pressure of 109/88. I reviewed his laboratory work and he has slight leukocytosis 12.1 with hemoglobin 16.3, hematocrit 47.7, platelet count normal at 205. Coagulation studies are negative with an INR of 1.1 with an APTT of 28.5, CMP shows glucose elevated at 132 with a normal anion gap of 12, BUN normal at 15 and creatinine 0.70, no dehydration, normal sodium and potassium. LFTs are grossly unremarkable. Lactic acid is elevated at 2.6. Chest x-ray interpreted by myself independently shows no evidence of an acute process, no pneumonia. I reviewed the radiology report which confirms my independent interpretation. Upon repeat examination, patient states now that he is not chilled or shaky but feels warm. He is meeting SIRS criteria and I do feel that as he has been on cephalexin, that he failed outpatient treatment for the cellulitis of his left lower extremity. He had an MAP of 66 so he will be given IV fluids and second IV started. He was started on Unasyn. I will discuss the patient with the hospitalist for admission. Disposition is admit in stable condition. I discussed patient with Dr. Del Rio. Patient does have a history of osteomyelitis. He requested that ESR and CRP be obtained as he may require imaging. CRP is elevated at 26. In review of prior labs, it has been elevated in the past. Additionally ESR is elevated in the 20s. I did obtain x-rays of the tibia and fibula and interpreted them independently. On my independent interpretation there is no evidence of an acute fracture, but I reviewed the radiology report and there is comment on lesion in the mid fibula. I discussed the patient again with Dr. Del Rio. Patient will be admitted to the medical surgical floor in stable condition. History & Record Review Discussion w/independent historian: Patient and Family Additional record(s) reviewed:: Prior ED visit Lab Data Attestation: I reviewed the patient's lab results. Labs: Laboratory Results - last 24 hr 07/07/24 07/07/24 09:30 10:43 WBC 12.1 H RBC 5.63 Hgb 16.3 Hct 47.7 MCV 84.7 MCH 29.0 MCHC 34.2 RDW Std Deviation 41.7 RDW Coeff of Gabriella 13.4 Plt Count 205 MPV 9.3 Immature Gran % (Auto) 0.600 Neut % (Auto) 87.4 H Lymph % (Auto) 6.7 L [place] % (Auto) 4.5 Eos % (Auto) 0.6 Baso % (Auto) 0.2 Absolute Neuts (auto) 10.6 H Absolute Lymphs (auto) 0.81 L Nucleated RBC % 0 ESR 22 H PT 14.1 INR 1.1 APTT 28.5 Sodium 140 Potassium 4.7 Chloride 103 Carbon Dioxide 25.3 Anion Gap 12 BUN 15 Creatinine 0.70 Estim Creat Clear Calc 202.67 Est GFR (MDRD) Non-Af 113 BUN/Creatinine Ratio 21.9 H Glucose 132 H Lactic Acid 2.6 H* Calcium 9.4 Total Bilirubin 0.85 AST 20 ALT 25 Alkaline Phosphatase 99 C-React Prot Ext Range 26.60 H Total Protein 7.3 Albumin 4.3 Globulin 3.1 Albumin/Globulin Ratio 1.4 Urine Color Yellow Urine Clarity Clear Urine pH 5.0 Ur Specific [place] 1.020 Urine Protein 15 H Urine Glucose (UA) Normal Urine Ketones Negative Urine Occult Blood Negative Urine Nitrite Negative Urine Bilirubin Negative Urine Urobilinogen Normal Ur Leukocyte Esterase Negative Urine RBC 0 SEEN Urine WBC 0 SEEN Ur Squamous Epith Cells 0 SEEN Urine Bacteria 0 SEEN Urine Mucus 0 SEEN Radiography Chest X-Ray - ED: 1 View, Read by ED Physician, Read by Radiologist and No Infiltrates Diagnostic Testing: Clinical Impression(s) from Imaging Studies Chest X-Ray 07/07/24 09:36 IMPRESSION: No acute cardiopulmonary process. Reading Location: [facility] Management Discussion w/another healthcare provider: Hospitalist Discharge Plan Dx/Rx/DC Orders Clinical Impression: Leukocytosis, Left leg cellulitis, Lactic acidosis, Failure of outpatient treatment Disposition Disposition: [facility]
--- NOTE | 2024-07-07 09:36 | RAD_ITS ---
EXAM: XR Chest, 1 View CLINICAL INDICATION: TACHYCARDIA TECHNIQUE: Frontal view of the chest. COMPARISON: No relevant prior studies available. FINDINGS: LUNGS AND PLEURAL SPACES: Unremarkable. No consolidation. No pneumothorax. HEART: Unremarkable. No cardiomegaly. MEDIASTINUM: Unremarkable. Normal mediastinal contour. BONES/JOINTS: Unremarkable. No acute fracture. RAD/Chest 1 View (Portable) IMPRESSION: No acute cardiopulmonary process. Reading Location: [facility]
[2024-07-07 09:39] LABS: Absolute Lymphocyte Count 0.81 X10^3/uL (0.83-4.51); Absolute Neutrophil Count 10.6 X10^3/uL (2.0-7.7); Basophil# 0.03 X10^3/uL; Basophil% 0.2 % (0-1); Eosinophil# 0.07 X10^3/uL; Eosinophils% 0.6 % (0-5); Hematocrit 47.7 % (40-54); Hemoglobin 16.3 g/dL (13.0-16.5); Lymphocyte # 0.81 X10^3/ul (0.83-4.51); Lymphocyte % 6.7 % (19-41); Mean Corp Hgb Conc 34.2 g/dL (32-36); Mean Corpuscular Volume 84.7 fL (80-94); Mean Platelet Vol. 9.3 fl (6.2-12.0); Monocyte# 0.54 X10^3/uL; Monocyte% 4.5 % (0-10); NRBC Flagged by Analyzer 0 % (0-5); Neutrophil # 10.55 X10^3/uL (2.7-7.7); Neutrophil % 87.4 % (47-70); Platelet Count 205 K/mm3 (150-450); RBC Distribution Width CV 13.4 % (11.6-14.6); RBC Distribution Width SD 41.7 fl (35.1-43.9); Red Blood Count 5.63 M/mm3 (4.6-6.2); White Blood Count 12.1 K/mm3 (4.4-11.0)
[2024-07-07 10:09] LABS: ALB/GLOB Ratio 1.4 RATIO (0.9-2.4); AST(SGOT) 20 U/L (<=37); Alanine Aminotransfer ALT/SGPT 25 U/L (<=46); Albumin, Serum 4.3 g/dL (3.5-5.0); Alkaline Phosphatase 99 U/L (40-129); Anion Gap 12 (5-15); BUN 15 mg/dL (4-19); BUN/Creat Ratio 21.9 RATIO (10-20); Calcium,Total 9.4 mg/dL (7.6-11.0); Carbon Dioxide 25.3 mmol/L (21.0-32.0); Chloride 103 mmol/L (98-108); EST Glomerular Filtration Rate 113 (>60); Estimated Creatinine Clearance 202.67 ml/min (50-250); Globulin 3.1 g/dL (2.2-4.2); Glucose 132 mg/dL (70-99); Potassium 4.7 mmol/L (3.3-5.1); Protein, Total 7.3 g/dL (5.9-8.4); Sodium Level 140 mmol/L (133-145); Total Bilirubin 0.85 mg/dL (0.00-1.30)
[2024-07-07 10:20] LABS: International Normalized Ratio 1.1; Partial Thromboplast Time 28.5 Seconds (24.1-36.2); Prothrombin Time (Protime)PT. 14.1 SECONDS (11.7-14.9)
[2024-07-07 10:26] LABS: Lactic Acid 2.6 mmol/L (0.0-2.0)
[2024-07-07] MEDS: 0.9% Normal Saline (1000mL) 1,000 ML 999 ML IV ×5 (11:07→21:11)
[2024-07-07] MEDS: Ampicillin/Sulbactam 3 GM in 0.9% Normal Saline (100mL MB+) 100 ML IV ×2 (11:07→21:51)
[2024-07-07 11:24] LABS: Bacteria 0 SEEN /hpf (None Seen); Mucous, Urine 0 SEEN /hpf (<or=2+); Red Blood Cells-Urine 0 SEEN /hpf (0-5); Squamous Epithelial Cells - UA 0 SEEN /hpf (0-5); White Blood Cells 0 SEEN /hpf (0-5)
[2024-07-07 11:28] LABS: Color, Urine Yellow (Yellow); Glucose, Dipstick Normal (Normal); Ketone-Dipstick Negative (Negative); Leukocyte Esterase-Dipstick Negative /ul (Negative); Nitrite-Dipstick Negative (Negative); Occult Blood-Urine Negative /ul (Negative); Protein-Dipstick 15 mg/dl (Negative); Urine Bilirubin Dipstick Negative (Negative); Urine Clarity Clear (Clear); Urine Urobilinogen Normal (Normal)
--- NOTE | 2024-07-07 11:45 | RAD_ITS ---
EXAM: Left tibia and fibula. CLINICAL HISTORY: Pain and swelling. Cellulitis. COMPARISON: No prior study. TECHNIQUE: Four views were obtained. FINDINGS: There is a 6.1 mm x 11.4 mm endosteal expansion of the midshaft of the fibula with cortical thinning. Osteomyelitis or possible mass lesion should be ruled out. Degenerative changes of the talocalcaneal joint as well as the tarsal joints. Diffuse soft tissue swelling. RAD/Tibia & Fibula 2 Views IMPRESSION: Abnormal finding in the midportion of the fibula as described. Correlation wit h a bone scan is recommended. Soft tissue swelling. Degenerative changes of the hindfoot. Reading Location: [facility]
[2024-07-07 12:21] LABS: Erythrocyte Sedimentation Rate 22 mm/hr (0-20)
[2024-07-07 13:33] LABS: Reflex Lactate? Y
--- NOTE | 2024-07-07 14:13 | MRI_ITS ---
PROCEDURE: LOWER EXT NO JOINT W/WO CONT 07/07/2024 REASON FOR EXAM: LEFT FIBULA LESION POSS OSTEO TECHNIQUE: MRI of the left tibia/fibula with and without intravenous gadolinium-based contrast. Multiplanar and multisequence images were obtained. COMPARISON: Left tibia/fibula radiographs same day. FINDINGS: Susceptibility artifact in the superficial medial left calf due to a tiny metallic foreign body. Chronic irregularity of the mid left fibular diaphysis most consistent with an old fracture. No edema. No underlying lesion is suspected. No bone marrow edema or erosive/destructive change to suggest osteomyelitis. The tibia is intact. 2.5 x 2.1 cm stir hyperintense and T1 isointense intramuscular lesion involving the mid calf in the left soleus muscle. On plain radiograph there is some faint calcification present. I suspect a benign process such as intramuscular hemangioma or old heterotopic ossification/myositis ossificans. There is mild generalized and symmetric subcutaneous edema of both calves and ankles. No fluid collections to suggest abscess or hematoma or hematoma. FINDINGS: Postcontrast findings included in the above section. MRI/Lower Ext No Joint W/WO Cont IMPRESSION: 1. No osteomyelitis identified of the left tibia/fibula. 2. Mid left fibular abnormality noted on plain radiograph is most consistent w ith a chronic healed fracture. No underlying lesion is evident. 3. Mild generalized subcutaneous edema bilaterally, without fluid collection. 4. Incidental intramuscular lesion of the left mid calf in the soleus muscle, likely benign process as noted. It is partially calcified based and visible on plain radiograph. Follow-up left tibia/fibula r adiographs are recommended in 6-12 months to document stability. Reading Location: [facility]
[2024-07-07 14:44] LABS: Lactic Acid 1.3 mmol/L (0.0-2.0)
[2024-07-07 15:22] LABS: Bedside Glucose 94 mg/dL (74-106)
[2024-07-07] MEDS: Vancomycin HCl 2,000 MG in 0.9% Normal Saline (500mL Bag) 500 ML 250 MG IV (15:29)
[2024-07-07] MEDS: 0.9% Normal Saline (250mL Bag) 250 ML 15 ML IV (15:29)
--- NOTE | 2024-07-07 15:58 | HP.PCM.HOS_ITS ---
HPI - General General Date of Admission: 07/07/24 HPI Narrative DANIELLE DUMAS, is a 48 M who presents to the hospital with fever and chills at home. He was seen in the hospital about a week ago for a right sprained ankle after he jumped into a ditch at home and then was found to have a left sided cellulitis so he was sent home on Keflex. He did feel better initially and then progressively got worse today where he had slightly elevated temperature to 99 degrees and had some rigors and chills. He does have a leukocytosis this admission to 12.1 unfortunately no CBC was obtained during his ER visit as that was primarily for his right ankle strain at that time. ESR and CRP were slightly elevated so an x-ray was taken of his left lower extremity that showed a possible osteomyelitis of the fibula which is old but hide so he was on broad antibiotics with the plan to obtain an MRI. [facility] Medical History Wears glasses Open wound Diabetes Arthritis Family history of malignant neoplasm of colon in father Acute osteomyelitis of toe of left foot 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 Hyperglycemia Cellulitis of right lower extremity Former smoker COVID-19 Morbid obesity Home Medications ?Medication ?Instructions ?Recorded ?Last Taken ?Type alfuzosin 10 mg tablet,extended 10 mg PO DAILY 4 05/12/24 History release 24 hr 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 sensor (FreeStyle #4 ea 05/15/23 Unknown Rx Zay 3 Sensor device) 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,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,cont #1 ea 05/15/23 Unknown Rx (FreeStyle Zay 3 [place]) alcohol swabs (Alcohol Prep Pads) 1 pad topical .PRN # 200 ea 01/14/24 Unknown Rx blood sugar diagnostic (Contour #100 ea 01/14/24 Unkno wn Rx Test Strips) multivitamin 1 tab PO QDAY 03/25/2405/10 History semaglutide 2 mg/dose (8 mg/3 mL) 2 mg (0.75 mL) subcu t QWEEK #3 mL 06/23/24 Unknown Rx subcutaneous pen injector cephalexin 500 mg capsule 500 mg PO Q6 #40 CAPSULES Unknown Rx metformin 500 mg tablet 500 mg PO DAILY #90 TABLETS 07/06/24 Unknown Rx Allergy/AdvReac Type Severity Reaction Status Date / Time No Known Allergies Allergy Verified 07/07/24 08:59 Family History Father Colon cancer, Onset Age: 40 Diabetes Skin cancer Mother Hypertension Surgical History Hx of amputation of lesser toe History of tonsillectomy Hx of foot surgery History of ankle surgery Social History adopted: No household members: significant other current occupational status: 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 current occupational exposures/hazards: No pets and animals: Yes pets and animals: dog(s) history of recent travel: No sexually active: Yes Smoking Status: Former smoker quit date: 02/18/04 pack-years: 10 Tobacco: How many years used: 10 Smokeless tobacco user: other second hand exposure: No alcohol intake: current alcohol intake frequency: holidays/special occasions only substance use type: does not use well-balanced diet: daily or most days caffeine: Yes eating out: 1-3 times/week during the past year weight has: decreased > 10 lbs frequency: 1-2 times per week duration: 15-30 minutes/day ethan/worship: Worship seatbelt use: always do you feel safe at home: Yes ROS Constitutional Constitutional: Reports chills and fever(s); Denies fatigue or malaise Eyes Eyes: Denies blurry vision ENT HEENT: Denies headache(s) or nasal discharge Cardiovascular Cardiovascular: Denies chest pain, dyspnea on exertion or syncope Respiratory/Chest Respiratory/Chest: Denies cough, shortness of breath at rest or shortness of breath with exertion Gastrointestinal Gastrointestinal: Denies constipation, diarrhea, nausea or vomiting Genitourinary Genitourinary: Denies dysuria Neurologic Neurologic: Denies focal weakness, numbness or tremor(s) Psychiatric Psychiatric: Denies anxiety or depression Vital Signs Vital Signs Vital Signs: 07/07/24 08:59 07/07/24 09:01 07/07/24 09:09 Temperature 98.7 F 98.7 F Temperature Source Oral Oral Pulse Rate 141 H 141 H Respiratory Rate 19 H 19 H Respiratory Effort Respiratory Depth Respiratory Pattern Blood Pressure 109/88 H 109/88 H Blood Pressure Mean 95 95 Blood Pressure Source Blood Pressure Position Blood Pressure Location Pulse Ox 100 98 Oxygen Delivery Method Room Air Room Air Room Air 07/07/24 10:52 07/07/24 11:09 07/07/24 12:45 Temperature 98.2 F Temperature Source Oral Pulse Rate 118 H 115 H 106 H Respiratory Rate 26 H 20 H 19 H Respiratory Effort Respiratory Depth Respiratory Pattern Blood Pressure 96/56 L 114/69 111/63 Blood Pressure Mean 69 83 77 Blood Pressure Source Blood Pressure Position Blood Pressure Location Pulse Ox 95 94 95 Oxygen Delivery Method Room Air 07/07/24 13:08 07/07/24 14:18 07/07/24 14:55 Temperature 98.5 F 97.3 F L Temperature Source Oral Pulse Rate 106 H 95 Respiratory Rate 19 H 18 Respiratory Effort Normal Non-Labored Respiratory Depth Normal Respiratory Pattern Normal Blood Pressure 111/63 110/64 Blood Pressure Mean 79 79 Blood Pressure Source Monitor Blood Pressure Position Semi-Fowlers Blood Pressure Location Right Arm Pulse Ox 95 98 Oxygen Delivery Method Room Air Room Air 07/07/24 15:44 Temperature 98 F Temperature Source Oral Pulse Rate 88 Respiratory Rate 18 Respiratory Effort Respiratory Depth Respiratory Pattern Blood Pressure 117/66 Blood Pressure Mean 83 Blood Pressure Source Monitor Blood Pressure Position Semi-Fowlers Blood Pressure Location Right Arm Pulse Ox 99 Oxygen Delivery Method Room Air Weight Weight: 332 lb 8 oz Body Mass Index (BMI) 41.5 Physical Exam Narrative General: Alert, Oriented x3, Cooperative, No apparent distress HEENT: Atraumatic, PERRLA, EOMI, Normocephalic Oral: Moist Mucosa Neck: Supple, No JVD Lungs: Diminished, Normal air movement, No rhonchi, No wheeze, No rales Cardiovascular: Regular rate, Regular Rhythm, Normal S1, Normal S2, No murmurs Abdomen: Soft, Non Tender, Non-Distended, No Hepato-splenomegaly Extremities: No edema, Capillary Refill Less than 3 Seconds Skin: No rashes, No breakdown Musculoskeletal: Right ankle is swollen but less tender than it was a week ago, left lower extremity romero with minimal redness, he does have toe on his left foot that is red with breakdown as well as the right toe that is being managed by podiatry on the outpatient side Neurological: No focal neurological deficits, Motor Exam 5/5 strength throughout, Sensory exam intact to light touch and pain Psych/Mental Status: Normal Affect, Appropriate Results Lab / Micro Data 07/07/24 09:30 07/07/24 09:30 Labs: Laboratory Results - last 24 hr 07/07/24 09:30: WBC 12.1 H, RBC 5.63, Hgb 16.3, Hct 47.7, MCV 84.7, MCH 29.0, MCHC 34.2, RDW Std Deviation 41.7, RDW Coeff of Gabriella 13.4, Plt Count 205, MPV 9.3, Immature Gran % (Auto) 0.600, Neut % (Auto) 87.4 H, Lymph % (Auto) 6.7 L, [place] % (Auto) 4.5, Eos % (Auto) 0.6, Baso % (Auto) 0.2, Absolute Neuts (auto) 10.6 H, Absolute Lymphs (auto) 0.81 L, Nucleated RBC % 0, ESR 22 H, PT 14.1, INR 1.1, APTT 28.5, Sodium 140, Potassium 4.7, Chloride 103, Carbon Dioxide 25.3, Anion Gap 12, BUN 15, Creatinine 0.70, Estim Creat Clear Calc 202.67, Est GFR (MDRD) Non-Af 113, BUN/Creatinine Ratio 21.9 H, Glucose 132 H, Lactic Acid 2.6 H*, Calcium 9.4, Total Bilirubin 0.85, AST 20, ALT 25, Alkaline Phosphatase 99, C-React Prot Ext Range 26.60 H, Total Protein 7.3, Albumin 4.3, Globulin 3.1, Albumin/Globulin Ratio 1.4 07/07/24 10:43: Urine Color Yellow, Urine Clarity Clear, Urine pH 5.0, Ur Specific [place] 1.020, Urine Protein 15 H, Urine Glucose (UA) Normal, Urine Ketones Negative, Urine Occult Blood Negative, Urine Nitrite Negative, Urine Bilirubin Negative, Urine Urobilinogen Normal, Ur Leukocyte Esterase Negative, Urine RBC 0 SEEN, Urine WBC 0 SEEN, Ur Squamous Epith Cells 0 SEEN, Urine Bacteria 0 SEEN, Urine Mucus 0 SEEN 07/07/24 13:59: Lactic Acid 1.3 07/07/24 14:35: POC Glucose 94 Imaging Radiology Impression Chest X-Ray 07/07/24 09:36 IMPRESSION: No acute cardiopulmonary process. Reading Location: [facility] Tibia/Fibula X-Ray 07/07/24 11:45 IMPRESSION: Abnormal finding in the midportion of the fibula as described. Correlation with a bone scan is recommended. Soft tissue swelling. Degenerative changes of the hindfoot. Reading Location: [facility] Assessment & Plan Assessment/Plan (1) Osteomyelitis: PLAN: Plan 1. Osteomyelitis of the left fibula ? Will obtain MRI ? Continue with Unasyn and vancomycin ? Will consult podiatry for his diabetic foot wounds both on his right foot and the area on his left toe ? Will consult wound care 2. DM2 ? Sign scale insulin ? Accu-Cheks ACHS ? Will hold his home medications ? Will monitor make adjustments as necessary DVT: Ambulation 65 minutes was spent on direct patient care, including documentation as well as chart review and collaboration with colleagues Charges/Coding Visit Charges Inpatient E&M: 94237 Init Hosp L2
[2024-07-07 16:12] LABS: Bedside Glucose 113 mg/dL (74-106)
--- NOTE | 2024-07-07 16:20 | PCM.RX.CS ---
Consult Antibiotic Management Pharmacy has been consulted to manage selected antibiotic: Vancomycin Type of Intervention Type of Consult: New Suspected Infection Suspected Infection: Skin/Soft tissue Labs Labs: Sodium 140 mmol/L (133-145) 07/07/24 09:30 Potassium 4.7 mmol/L (3.3-5.1) 07/07/24 09:30 Chloride 103 mmol/L (98-108) 07/07/24 09:30 Carbon Dioxide 25.3 mmol/L (21.0-32.0) 07/07/24 09:30 Anion Gap 12 (5-15) 07/07/24 09:30 BUN 15 mg/dL (4-19) 07/07/24 09:30 Creatinine 0.70 mg/dL (0.70-1.20) 07/07/24 09:30 Est GFR (MDRD) Non-Af 113 (>60) 07/07/24 09:30 BUN/Creatinine Ratio 21.9 RATIO (10-20) H 07/07/24 09:30 Glucose 132 mg/dL (70-99) H 07/07/24 09:30 Goal Trough Goal Trough: 15-20 mcg/mL Pharmacy Plan for Drug Dosing Pharmacy Plan for Drug Dosing: NEW IV VANCOMYCIN Consulting Physician: Dr. Del Rio Indication: SSTI Goal Trough: 15-20 SrCr: 0.7 CrCl: 202 mL/min Comments: Loading dose of vancomycin 2g IV x1 ordered and administered 07/07 @1529 Vancomycin Dose: 1500mg IV Q8h to start 07/07 @2330 Pending Level: 07/08/24 @1500 prior to 4th total dose per protocol Pharmacy Service will continue to monitor and adjust dosing as required.
--- NOTE | 2024-07-07 19:46 | PCM.CONS.GEN ---
Assessment & Plan Assessment/Plan (1) Left leg cellulitis: (2) Hammertoe of left foot: (3) Diabetes mellitus with diabetic polyneuropathy: (4) Type 2 diabetes mellitus with foot ulcer: (5) Traumatic tear of right anterior tibialis tendon: PLAN: Plan Evaluation performed. Reviewed diagnostic data. There is ulceration lfet 3rd toe with signs/symptoms of infection. Ordered left foot xrays, 3 views, as well as MRI for further evaluation. Discussed possible amputation of toe pending results. Left 3rd toe ulceration was debrided in excisional fashion using a 15 blade removing nonviable tissue down to and including subcutaneous tissue. A culture was obtained and sent to microbiology. Betadine soln and gauze dressing was applied. Keep clean, dry and intact. No weightbearing left 3rd toe. Patient is on IV antibiotics Vancomycin and Unasyn. Due to findings and concern about right anterior tibial tendon, ordered MRI for further evaluation. Discussed with Dr. Del Rio. Thank you for consultation. Podiatry will continue to follow. HPI Consult Data Date of Consult: 07/07/24 HPI Narrative Reason for Consultation: infection left lower extremity, injury right ankle HPI Narrative: DANIELLE DUMAS, is a 48 M who presented to ER today with fever, chills and malaise. WBC noted to be elevated. Patient relates to injury to right ankle last week, went to ER had xrays. No acute fractures noted. He is concerned about a possible torn tendon, he had similar injury years ago where he ruptured left anterior tibial tendon requiring repair. He relates ankle was feeling better but still not normal, but relates he has developed fever, chills and not feeling good at all, and has cellulitis left lower extremity. There were some abnormal findings to his left fibula on xrays and MRI was obtained. Podiatry was consulted by hospital medicine for further evaluation. [facility] Medical History (Updated 07/07/24 @ 19:[address] Eliu Benites, [place]) Acute osteomyelitis of toe of left foot Wears glasses Open wound Diabetes Arthritis Family history of malignant neoplasm of colon in father 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 Hyperglycemia Cellulitis of right lower extremity Former smoker COVID-19 Morbid obesity Home Medications ?Medication ?Instructions ?Recorded ?Last Taken ?Type alfuzosin 10 mg tablet,extended 10 mg PO DAILY 02/24/23 05/12/24 History release 24 hr 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 sensor (FreeStyle #4 ea 05/15/23 Unknown Rx Zay 3 Sensor device) 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,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,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 #1 ea 05/15/23 Unknown Rx (FreeStyle Zay 3 [place]) alcohol swabs (Alcohol Prep Pads) 1 pad topical .PRN #200 ea 01/14/24 Unknown Rx blood sugar diagnostic (Contour #100 ea 01/14/24 Unknown Rx Test Strips) multivitamin 1 tab PO QDAY 03/25/24 05/10/24 History semaglutide 2 mg/dose (8 mg/3 mL) 2 mg (0.75 mL) subcut QWEEK #3 mL 06/23/24 Unknown Rx subcutaneous pen injector cephalexin 500 mg capsule 500 mg PO Q6 #40 CAPSULES 07/01/24 Unknown Rx metformin 500 mg tablet 500 mg PO DAILY #90 TABLETS 07/06/24 Unknown Rx Allergy/AdvReac Type Severity Reaction Status Date / Time No Known Allergies Allergy Verified 07/07/24 08:59 Family History Father Colon cancer, Onset Age: 40 Diabetes Skin cancer Mother Hypertension Surgical History Hx of amputation of lesser toe History of tonsillectomy Hx of foot surgery History of ankle surgery Social History adopted: No household members: significant other current occupational status: 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 current occupational exposures/hazards: No pets and animals: Yes pets and animals: dog(s) history of recent travel: No sexually active: Yes Smoking Status: Former smoker quit date: 02/18/04 pack-years: 10 Tobacco: How many years used: 10 Smokeless tobacco user: other second hand exposure: No alcohol intake: current alcohol intake frequency: holidays/special occasions only substance use type: does not use well-balanced diet: daily or most days caffeine: Yes eating out: 1-3 times/week during the past year weight has: decreased > 10 lbs frequency: 1-2 times per week duration: 15-30 minutes/day ethan/adventism: L[employer] seatbelt use: always do you feel safe at home: Yes Physical Exam Const alert and oriented x3 Constitutional Narrative: Has chills. Left foot noted to have ulceration distal tip of the 3rd toe, there is callus and nonviable tissue to and including subcutaneous and fascia layer, probes very close to the tip of the distal phalanx, there is erythema, localized maloder to site, and edema localized to the toe. No other open lesions to left foot, ankle or leg. There is contracture of 3,4,5 toes, partial 2nd toe amputation left foot. Right foot with some callus to the 1st toe, no open lesion right foot. CFT < 2 seconds to all toes bilateral. No streaking, no crepitus, no visible abscess, no gangrenous changes bilateral foot/ankle or leg. Right foot dorsiflexion appears decreased concerning for anterior tibial tendon injury. Decreased sensation bilateral foot consistent with chronic peripheral neuropathy. Lab / Micro Data 07/07/24 09:30 07/07/24 09:30 Labs: Laboratory Results - last 24 hr 07/07/24 09:30: WBC 12.1 H, RBC 5.63, Hgb 16.3, Hct 47.7, MCV 84.7, MCH 29.0, MCHC 34.2, RDW Std Deviation 41.7, RDW Coeff of Gabriella 13.4, Plt Count 205, MPV 9.3, Immature Gran % (Auto) 0.600, Neut % (Auto) 87.4 H, Lymph % (Auto) 6.7 L, [place] % (Auto) 4.5, Eos % (Auto) 0.6, Baso % (Auto) 0.2, Absolute Neuts (auto) 10.6 H, Absolute Lymphs (auto) 0.81 L, Nucleated RBC % 0, ESR 22 H, PT 14.1, INR 1.1, APTT 28.5, Sodium 140, Potassium 4.7, Chloride 103, Carbon Dioxide 25.3, Anion Gap 12, BUN 15, Creatinine 0.70, Estim Creat Clear Calc 202.67, Est GFR (MDRD) Non-Af 113, BUN/Creatinine Ratio 21.9 H, Glucose 132 H, Lactic Acid 2.6 H*, Calcium 9.4, Total Bilirubin 0.85, AST 20, ALT 25, Alkaline Phosphatase 99, C-React Prot Ext Range 26.60 H, Total Protein 7.3, Albumin 4.3, Globulin 3.1, Albumin/Globulin Ratio 1.4 07/07/24 10:43: Urine Color Yellow, Urine Clarity Clear, Urine pH 5.0, Ur Specific [place] 1.020, Urine Protein 15 H, Urine Glucose (UA) Normal, Urine Ketones Negative, Urine Occult Blood Negative, Urine Nitrite Negative, Urine Bilirubin Negative, Urine Urobilinogen Normal, Ur Leukocyte Esterase Negative, Urine RBC 0 SEEN, Urine WBC 0 SEEN, Ur Squamous Epith Cells 0 SEEN, Urine Bacteria 0 SEEN, Urine Mucus 0 SEEN 07/07/24 13:59: Lactic Acid 1.3 07/07/24 14:35: POC Glucose 94 07/07/24 15:51: POC Glucose 113 H Imaging Radiology Impression Chest X-Ray 07/07/24 09:36 IMPRESSION: No acute cardiopulmonary process. Reading Location: [facility] Tibia/Fibula X-Ray 07/07/24 11:45 IMPRESSION: Abnormal finding in the midportion of the fibula as described. Correlation with a bone scan is recommended. Soft tissue swelling. Degenerative changes of the hindfoot. Reading Location: [place] [id number]
[2024-07-07] MEDS: Acetaminophen 325 MG Tablet 650 MG PO (19:50)
--- NOTE | 2024-07-07 20:15 | RAD_ITS ---
PROCEDURE: FOOT MIN 3 VIEWS 07/07/2024 REASON FOR EXAM: INFECTION 3RD TOE TECHNIQUE: 3 views of the left foot. COMPARISON: Left foot radiographs 02/25/2023 FINDINGS: Patient positioning with overlapping toes limits this evaluation. Postoperative changes from amputation at the mid aspect of the middle phalanx of the 2nd toe. Ossifications at the ankle joint, unchanged. There are advanced degenerative changes, most notably at the 1st metatarsophalangeal joint, similar to prior. Flattening of the 2nd metatarsal head is also unchanged. No focal osteopenia. Plantar heel spur. RAD/Foot min 3 Views IMPRESSION: 1. No focal osteopenia to suggest osteomyelitis, though patient positioning li mits evaluation. Consider bone scan or MRI if concern persists. 2. Unchanged appearance in comparison with 02/25/2023 radiographs, to include severe degenerative changes of the foot and ankle. Reading Location: [facility]
[2024-07-07] MEDS: Tamsulosin HCl 0.4 MG Capsule PO (21:52)
[2024-07-07 22:17] LABS: Bedside Glucose 148 mg/dL (74-106)
[2024-07-08] VITALS (14 sets, daily range): BP systolic 103–128; BP diastolic 57–86; PULSE 74–102; RESP 16–18; TEMP 36.7–37.8; O2SAT 94–100
[2024-07-08] MEDS: Vancomycin HCl 1,500 MG in 0.9% Normal Saline (500mL Bag) 500 ML 250 MG IV ×2 (00:05→07:28)
[2024-07-08] MEDS: Ampicillin/Sulbactam 3 GM in 0.9% Normal Saline (100mL MB+) 100 ML IV ×2 (05:29→20:56)
[2024-07-08 05:43] LABS: Absolute Neutrophil Count 5.7 X10^3/uL (2.0-7.7); Basophil# 0.05 X10^3/uL; Basophil% 0.6 % (0-1); Eosinophil# 0.03 X10^3/uL; Eosinophils% 0.4 % (0-5); Hematocrit 47.3 % (40-54); Hemoglobin 15.6 g/dL (13.0-16.5); Lymphocyte % 16.5 % (19-41); Mean Corpuscular Hgb 28.6 pg (27.0-32.0); Mean Corpuscular Volume 86.6 fL (80-94); Mean Platelet Vol. 8.9 fl (6.2-12.0); Monocyte% 8.9 % (0-10); NRBC Flagged by Analyzer 0 % (0-5); Neutrophil # 5.73 X10^3/uL (2.7-7.7); Neutrophil % 72.8 % (47-70); Platelet Count 153 K/mm3 (150-450); RBC Distribution Width CV 13.9 % (11.6-14.6); RBC Distribution Width SD 44.2 fl (35.1-43.9); Red Blood Count 5.46 M/mm3 (4.6-6.2); White Blood Count 7.9 K/mm3 (4.4-11.0)
[2024-07-08 06:25] LABS: Anion Gap 11 (5-15); BUN 11 mg/dL (4-19); BUN/Creat Ratio 15.8 RATIO (10-20); Calcium,Total 8.1 mg/dL (7.6-11.0); Carbon Dioxide 18.7 mmol/L (21.0-32.0); Chloride 110 mmol/L (98-108); Creatinine, Serum 0.69 mg/dL (0.70-1.20); EST Glomerular Filtration Rate 114 (>60); Estimated Creatinine Clearance 205.61 ml/min (50-250); Glucose 94 mg/dL (70-99); Potassium 3.7 mmol/L (3.3-5.1); Sodium Level 139 mmol/L (133-145)
[2024-07-08] MEDS: 0.9% Normal Saline (250mL Bag) 250 ML 15 ML IV (06:37)
[2024-07-08 06:57] LABS: Bedside Glucose 121 mg/dL (74-106)
--- NOTE | 2024-07-08 08:30 | MRI_ITS ---
PROCEDURE: LOWER EXT/NO JT/W/O 07/08/2024 REASON FOR EXAM: OSTEOMYELITIS 3RD TOE, anterior tibial tendon injury TECHNIQUE: MRI of the left forefoot Multiplanar and multisequence images were obtained without IV contrast administration. COMPARISON: COMPARISON : July 07, 2024 x-ray FINDINGS: There is diffuse plantar muscular atrophy. 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 There is increased T2, decreased T1 signal in the distal phalanx of the 3rd digit, which meets the criteria for osteomyelitis, sagittal image . Sesamoids are aligned. The Lisfranc articulation is incompletely visualized. There is no abnormal fluid collection or joint effusion. MRI/Lower Ext/No Jt/w/o IMPRESSION: There is diffuse plantar muscular atrophy. There is severe osteoarthritis of the 1st and 2nd metatarsophalangeal articulat ions with joint space narrowing, and marginal osteophytes. There is increased T2, decreased T1 signal in the distal phalanx of the 3rd dig it, which meets the criteria for osteomyelitis, sagittal image . Reading Location: [facility]
[2024-07-08] MEDS: ALPRAZolam 0.5 MG Tablet PO (08:39)
[2024-07-08] MEDS: Acetaminophen 325 MG Tablet 650 MG PO ×2 (08:41→20:55)
--- NOTE | 2024-07-08 08:55 | NURSING ---
Transported to MRI. Premed administered.
--- NOTE | 2024-07-08 09:02 | MRI_ITS ---
PROCEDURE: LOWER EXT JOINT ONLY (ROUTINE) 07/08/2024 REASON FOR EXAM: ANTERIOR TIBAL TENDON INJURY TECHNIQUE: T1, T2, PD, stir, MRI of the right ankle Multiplanar and multisequence images were obtained without IV contrast administration. COMPARISON: COMPARISON : July 01, 2024 FINDINGS: There is a complete tear of the anterior tibial tendon, below the field of view of this exam, with laxity and retraction to the level of the tibiotalar articulation, sagittal image 13/24. There is edema and attenuation in the posterior tibial tendon with increased fluid in the tendon sheath, moderate tenosynovitis. There is increased fluid signal in the distal flexor digitorum tendon sheath, mild tenosynovitis. The peroneal tendons appear intact. Bone marrow: There is edema in the distal fibula with a subcortical cyst at the distal aspect measuring 0.8 cm. There is subcortical cyst formation in the posterior medial talar dome. There is no acute fracture identified. There is subcortical cyst formation in the calcaneus at the posterior subtalar joint. There is a edema signal throughout the sinus tarsi with attenuation of the cervical ligament and intermediate and lateral roots of the inferior extensor retinaculum, consistent with sinus tarsi syndrome. There is moderate distal Achilles tendinopathy without tear, with increased fluid in the pre Achilles bursa, with bursitis. The plantar fascia origin appears intact. There is a edema and attenuation in the anterior and posterior talofibular ligaments without laxity, grade 2 sprains. The distal tibiofibular ligaments appear intact. The deltoid ligament complex appears intact. The spring ligament appears intact. There is no significant joint effusion. MRI/Lower Ext Joint Only (Routine) IMPRESSION: There is a complete tear of the anterior tibial tendon, below the field of view of this exam, with laxity and retraction to the level of the tibiotalar articulation, sagittal image 13/24. There is edema and attenuation in the posterior tibial tendon with increased fl uid in the tendon sheath, moderate tenosynovitis. There is increased fluid signal in the distal flexor digitorum tendon sheath, m ild tenosynovitis. There is edema in the distal fibula with a subcortical cyst at the distal aspec t measuring 0.8 cm. There is subcortical cyst formation in the posterior medial talar dome. There is subcortical cyst format ion in the calcaneus at the posterior subtalar joint. There is a edema signal throughout the sinus tarsi with attenuation of the cerv ical ligament and intermediate and lateral roots of the inferior extensor retinaculum, consistent with sinus tarsi syndrome. There is moderate distal Achilles tendinopathy without tear, with increased flu id in the pre Achilles bursa, with bursitis. There is a edema and attenuation in the anterior and posterior talofibular liga ments without laxity, grade 2 sprains. Reading Location: [facility]
--- NOTE | 2024-07-08 10:47 | PN.HOSP_ITS ---
Subjective Subjective Spiked a bit of a temp yesterday continue broad-spectrum antibiotics. MRI of the romero base with that showed an old injury not osteo as previously assumed. Get an MRI of his left toe today Objective Data Objective Data Vital Signs: Vital Signs Temp Pulse Resp BP Pulse Ox O2 Del Method 99.8 F H 99 18 103/68 96 Room Air 07/08/24 08:43 07/08/24 08:43 07/08/24 08:43 07/08/24 08:43 07/08/24 08:43 07/08/24 08:43 Oxygen Delivery Method Room Air Weight: 332 lb 8 oz Body Mass Index (BMI) 41.5 Intake & Output: Intake and Output for Last 24 Hours 07/07/24 07/08/24 07/09/24 03:59 03:59 03:59 Intake Total 7620 / 7620 827 / 827 Balance 7620 / 7620 827 / 827 Lab / Micro Data 07/08/24 05:10 07/08/24 05:10 Labs: Laboratory Results - last 24 hr 07/07/24 09:30: ESR 22 H, C-React Prot Ext Range 26.60 H 07/07/24 10:43: Urine Color Yellow, Urine Clarity Clear, Urine pH 5.0, Ur Specific [place] 1.020, Urine Protein 15 H, Urine Glucose (UA) Normal, Urine Ketones Negative, Urine Occult Blood Negative, Urine Nitrite Negative, Urine Bilirubin Negative, Urine Urobilinogen Normal, Ur Leukocyte Esterase Negative, Urine RBC 0 SEEN, Urine WBC 0 SEEN, Ur Squamous Epith Cells 0 SEEN, Urine Bacteria 0 SEEN, Urine Mucus 0 SEEN 07/07/24 13:59: Lactic Acid 1.3 07/07/24 14:35: POC Glucose 94 07/07/24 15:51: POC Glucose 113 H 07/07/24 21:43: POC Glucose 148 H 07/08/24 05:10: WBC 7.9, RBC 5.46, Hgb 15.6, Hct 47.3, MCV 86.6, MCH 28.6, MCHC 33.0, RDW Std Deviation 44.2 H, RDW Coeff of Gabriella 13.9, Plt Count 153, MPV 8.9, Immature Gran % (Auto) 0.800, Neut % (Auto) 72.8 H, Lymph % (Auto) 16.5 L, Evangeline % (Auto) 8.9, Eos % (Auto) 0.4, Baso % (Auto) 0.6, Absolute Neuts (auto) 5.7, Absolute Lymphs (auto) 1.30, Nucleated RBC % 0, Sodium 139, Potassium 3.7, C hloride 110 H, Carbon Dioxide 18.7 L, Anion Gap 11, BUN 11, Creatinine 0.69 L, Estim Creat Clear Calc 205.61, Est GFR (MDRD) Non-Af 114, BUN/Creatinine Ratio 15.8, Glucose 94, Calcium 8.1 07/08/24 06:38: POC Glucose 121 H Micro: Microbiology 07/07/24 19:40 Wound - Toe Gram Stain - Final 07/07/24 19:40 Wound - Toe Wound Culture - Preliminary Gram positive organism 07/07/24 10:43 Urine, Clean Catch Urine Culture - Preliminary Culture exhibits no growth. Radiography Diagnostic Testing: Radiology Impression Tibia/Fibula X-Ray 07/07/24 11:45 IMPRESSION: Abnormal finding in the midportion of the fibula as described. Correlation with a bone scan is recommended. Soft tissue swelling. Degenerative changes of the hindfoot. Reading Location: [facility] Lower Extremity MRI 07/07/24 14:13 IMPRESSION: 1. No osteomyelitis identified of the left tibia/fibula. 2. Mid left fibular abnormality noted on plain radiograph is most consistent with a chronic healed fracture. No underlying lesion is evident. 3. Mild generalized subcutaneous edema bilaterally, without fluid collection. 4. Incidental intramuscular lesion of the left mid calf in the soleus muscle, likely benign process as noted. It is partially calcified based and visible on plain radiograph. Follow-up left tibia/fibula radiographs are recommended in 6-12 months to document stability. Reading Location: [id number] Foot X-Ray 07/07/24 20:15 IMPRESSION: 1. No focal osteopenia to suggest osteomyelitis, though patient positioning limits evaluation. Consider bone scan or MRI if concern persists. 2. Unchanged appearance in comparison with 02/25/2023 radiographs, to include severe degenerative changes of the foot and ankle. Reading Location: [facility] Physical Exam Narrative General: Alert, Oriented x3, Cooperative, No apparent distress HEENT: Atraumatic, PERRLA, EOMI, Normocephalic Oral: Moist Mucosa Neck: Supple, No JVD Lungs: Diminished, Normal air movement, No rhonchi, No wheeze, No rales Cardiovascular: Regular rate, Regular Rhythm, Normal S1, Normal S2, No murmurs Abdomen: Soft, Non Tender, Non-Distended, No Hepato-splenomegaly Extremities: No edema, Capillary Refill Less than 3 Seconds Skin: No rashes, No breakdown Musculoskeletal: Right ankle is swollen but less tender than it was a week ago, left lower extremity romero with minimal redness, he does have toe on his left foot that is red with breakdown as well as the right toe that is being managed by podiatry on the outpatient side Neurological: No focal neurological deficits, Motor Exam 5/5 strength throughout, Sensory exam intact to light touch and pain Psych/Mental Status: Normal Affect, Appropriate Assessment & Plan Assessment/Plan (1) Osteomyelitis: PLAN: Plan 1. Possible osteomyelitis of the left toe ?MRI of the fibula was negative for osteomyelitis however podiatry was consulted yesterday and they unroofed his left third toe and found that the tracking of the injury did extend all the way to the bone ? Continue with Unasyn and vancomycin ?Will consult infectious disease ? Will consult wound care 2. DM2 ? Sign scale insulin ? Accu-Cheks ACHS ? Will hold his home medications ? Will monitor make adjustments as necessary DVT: Ambulation Charges/Coding Visit Charges Inpatient E&M: 69471 Subs Hosp L2
--- NOTE | 2024-07-08 11:17 | CASEMGMT ---
Social Work SW met with pt and discussed advance directives. Pt requesting to make a new HCPOA. SW assisting pt in completing new HCPOA naming his brother Tai Chino. Pt also requesting to complete living will. SW assisted pt with this. Original documents given to pt and copy placed on pt chart. REYES Mcclelland
--- NOTE | 2024-07-08 11:35 | CASEMGMT ---
NARENDRA CROWE Assessment: RN CM to room to meet with pt for initial transition planning/care coordination assessment. NARENDRA CROWE introduced self and role at [facility], pt voices understanding and consents to assessment. Pt is A&O and answers all questions appropriately at this time. Pt sitting up in chair in room. Care providers, pharmacy, and demographics verified/updated. Strata: 2 PCP: Dr Horner Specialists: Dr Benites, podiatry. Dr Vergara, urology Preferred Pharmacy: [facility] Retail @ discharge. Otherwise, goes to [facility] Insurance: [employer] Prescription Benefit: yes LNOK: Brother, Tai Chino. Pt states he just completed HCPOA paperwork today, naming Tai as his agent. Parents, Janell & Joss Chino. (Pt states he is , but they are and states getting a divorce soon). Living Arrangements: Pt lives with someone in a two story home with 10 steps to enter with a rail. Pt reports he is independent w/ADL's and IADL's and denies concerns at home. Transportation: Pt drives self and denies concerns with transportation. Brother or parents will take him home @ dc. DME: Pt has a functioning glucometer w/supplies. He checks his BS's daily. He does not use other DME, but states he does have the following available, if needed: crutches, shower chair, walker. HHC/SNF:Pt has had HHC in the past but cannot recall the name of the agency. Pt denies SNF. Pt states no concerns with going home at time of dc. He has done IV atb at home in the past. NARENDRA CROWE to follow ID recommendations. Pt states no further concerns/needs. Advised pt to ask CM if any further question/concerns/needs arise, voices understanding. Plan: TBD, pending course of treatment. Follow for possible surgery, possible IV atb's, wound care, and any changes in weight-bearing status. Nathan DO RN, CM
[2024-07-08 12:05] LABS: Bedside Glucose 114 mg/dL (74-106)
--- NOTE | 2024-07-08 13:15 | NURSING ---
To OR for surgery
--- NOTE | 2024-07-08 13:49 | PRE.ANES_ITS ---
ASA Classification* ASA Classification ASA Classification: 3 Assessment & Plan Anesthesia* Anesthesia Assessment Anesthesia Assessment: Discussed sedation and/or anesthesia options, risks, benefits, and alternatives with patient/parents/legal guardian/POA. Questions invited. The patient/parents/legal guardian/POA seems to understand and agrees to proceed with anesthesia plan. Reviewed the physical assessment, medical history, allergy history and patient home medications list prior to surgery/procedure/anesthetic and documented any changes. Performed airway and anesthesia risk assessments. Anesthesia Type Anesthesia Type: MAC ( General anesthesia backup. If requested by Dr. Benites) Anesthesia Focused Assessment* Temperature: 99.8 F Pulse Rate: 99 Blood Pressure: 103/68 Respiratory Rate: 18 Pulse Ox: 96 Airway Assessment Mouth opens: >3 cm Mallampati Score: II Focused Labs Anesthesia Preop lab: CBC WBC 7.9 K/mm3 (4.4-11.0) 07/08/24 05:10 07/08/24 RBC 5.46 M/mm3 (4.6-6.2) 07/08/24 05:10 07/08/24 Hgb 15.6 g/dL (13.0-16.5) 07/08/24 05:10 07/08/24 Hct 47.3 % (40-54) 07/08/24 05:10 07/08/24 Plt Count 153 K/mm3 (150-450) 07/08/24 05:10 07/08/24 CHEMISTRY Potassium 3.7 mmol/L (3.3-5.1) 07/08/24 05:10 07/08/24 Sodium 139 mmol/L (133-145) 07/08/24 05:10 07/08/24 Magnesium 1.8 mg/dL (1.6-2.6) 02/24/23 13:15 02/24/23 Phosphorus 3.1 mg/dL (2.5-4.9) 04/28/21 07:30 04/28/21 BUN 11 mg/dL (4-19) 07/08/24 05:10 07/08/24 Creatinine 0.69 mg/dL (0.70-1.20) L 07/08/24 05:10 Glucose 94 mg/dL (70-99) 07/08/24 05:10 07/08/24 POC Glucose 114 mg/dL (74-106) H 07/08/24 11:43 07/08/24 TSH 0.98 uIU/mL (0.358-3.74) 05/15/23 12:28 COAG PT 14.1 SECONDS (11.7-14.9) 07/07/24 09:30 Pre-Assessment Diagnosis/Proposed Procedure Planned Operative Procedure(s): Toe amputations. 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 When Was Last Pacemaker Check QUESTION #4 FULL TEXT: You/Your Family Experience fever (hyperthermia) with Anesthesia Last Oral Intake Last Oral intake: Last Oral Intake NPO since Meds taken in AM with sips of water? 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 Female HX of Motion Sickness HX of N/V After Surgery Non-Smoker Duration of Surgery greater than 60 minutes Number of Risk Factors PONV Score Height & Weight Height & Weight: Anesthesia: Height & Weight Height 6 ft 3 in 07/07/24 14:19 Weight: 150.819 kg 07/07/24 14:19 Body Mass Index (BMI) 41.5 07/07/24 14:19 Respiratory Assessment Respiratory Assessment - vinyl flooring installer: Respiratory Tract Infection Hx - vinyl flooring installer Hx Respiratory Tract Infection No 07/08/24 05:27 STOP Sleep Apnea STOP Sleep Apnea - vinyl flooring installer: STOP Sleep Apnea - vinyl flooring installer Hx Hypertension No 07/07/24 14:44 Hx Sleep Apnea No 07/07/24 14:44 CPAP No 07/07/24 14:44 BIPAP No 07/07/24 14:44 Do you snore loudly (louder No 07/07/24 14:44 than talking or can be heard Do you often feel tired/ No 07/07/24 14:44 fatigued/ sleepy during daytime? Has anyone observed you stop No 07/07/24 14:44 breathing during sleep? STOP Results Negative 07/07/24 14:44 QUESTION #5 FULL TEXT : Do you snore loudly (louder than talking or can be heard through closed doors)? 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 Specify any problems Hx of Preganancy in last 3 N/A 07/07/24 14:44 Months Nurse Filling Out Transfusion ACOEY 07/07/24 14:44 & Questions: Date: 07/07/24 07/07/24 14:44 Time: 14:47 07/07/24 14:44 Patient unable to answer at this time (ie. 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: /Reproductive Hx- vinyl flooring installer Hx Now Gestational Age (in weeks): EDC: Hx Hx Para Hx Section SAB No 05/10/24 09:56 Active Medications Active Medications: Current Medications Generic Name Dose Route Start Last Admin Trade Name Freq PRN Reason Stop Dose Admin Acetaminophen 650 mg 07/07/24 19:04 07/08/24 08:41 Acetaminophen 325 Mg Tablet PO 650 mg Q6H PRN PRN Administration Pain 1-10 or Fever Glucagon 1 mg 07/07/24 14:13 Glucagon 1 Mg/Ml Syringe IM X1 PRN HYPOGLYCEMIA Protocol Dextrose 250 mls @ 0 mls/hr 07/07/24 14:13 Dextrose 10%-Water IV .Q0M PRN HYPOGLYCEMIA Protocol As Directed Ampicillin Sodium/Sulbactam 100 mls @ 150 mls/hr 07/07/24 22:00 07/08/24 06:14 Sodium 3 gm/ Sodium Chloride IV Infused Q8 ERIN Infusion Vancomycin IV-PHARMACY TO DOSE 500 mls @ 250 mls/hr 07/07/24 14:13 1 each/ Sodium Chloride IV PRN PRN Rx to Dose Protocol Sodium Chloride 250 mls @ 15 mls/hr 07/07/24 15:19 07/08/24 06:37 IV 15 mls/hr .[id number] PRN Administration Saline Flush Sodium Chloride 250 mls @ 15 mls/hr 07/07/24 15:19 IV .[id number] PRN Additional IVPB Infusion Vancomycin HCl 1,500 mg/ 530 mls @ 250 mls/hr 07/07/24 23:30 07/08/24 10:00 Sodium Chloride IV Infused Q8H ERIN Infusion Lactated Ringer's 1,000 mls @ 15 mls/hr 07/08/24 13:45 IV .Q48H [facility] Insulin Human Lispro 0 unit 07/07/24 14:13 07/08/24 11:49 Insulin Lispro 100 Unit/Ml Insuln.Pen SC Not Given ACHS [facility] Protocol Ondansetron HCl 4 mg 07/07/24 14:13 Ondansetron 4 Mg/2 Ml Vial IV Q8H PRN PRN NAUSEA/VOMITING Tamsulosin HCl 0.4 mg 07/08/24 22:00 Tamsulosin Hcl 0.4 Mg Capsule PO 2200 [facility] Vancomycin Protocol 1 lab 07/08/24 14:00 Vancomycin Trough/Random Due 07/08/24 16:[address] 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 Hyperglycemia Cellulitis of right lower extremity Former smoker COVID-19 Morbid obesity Home Medications ?Medication ?Instructions ?Recorded ?Last Taken ?Type alfuzosin 10 mg tablet,extended 10 mg PO DAILY 4 05/12/24 History release 24 hr 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 sensor (FreeStyle #4 ea 05/15/23 Unknown Rx Zay 3 Sensor device) 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,information technology project manager,cont #1 ea 05/15/23 Unknown Rx (FreeStyle Zay 3 [place]) alcohol swabs (Alcohol Prep Pads) 1 pad topical .PRN # 200 ea 01/14/24 Unknown Rx blood sugar diagnostic (Contour #100 ea 01/14/24 Unkno wn Rx Test Strips) multivitamin 1 tab PO QDAY 03/25/2405/10 History semaglutide 2 mg/dose (8 mg/3 mL) 2 mg (0.75 mL) subcu t QWEEK #3 mL 06/23/24 Unknown Rx subcutaneous pen injector cephalexin 500 mg capsule 500 mg PO Q6 #40 CAPSULES Unknown Rx metformin 500 mg tablet 500 mg PO DAILY #90 TABLETS 07/06/24 Unknown Rx Allergy/AdvReac Type Severity Reaction Status Date / Time No Known Allergies Allergy Verified 07/07/24 08:59 Family History Father Colon cancer, Onset Age: 40 Diabetes Skin cancer Mother Hypertension Surgical History Hx of amputation of lesser toe History of tonsillectomy Hx of foot surgery History of ankle surgery Social History adopted: No household members: significant other current occupational status: 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 current occupational exposures/hazards: No pets and animals: Yes pets and animals: dog(s) history of recent travel: No sexually active: Yes Smoking Status: Former smoker quit date: 02/18/04 pack-years: 10 Tobacco: How many years used: 10 Smokeless tobacco user: other second hand exposure: No alcohol intake: current alcohol intake frequency: holidays/special occasions only substance use type: does not use well-balanced diet: daily or most days caffeine: Yes eating out: 1-3 times/week during the past year weight has: decreased > 10 lbs frequency: 1-2 times per week duration: 15-30 minutes/day ethan/moravian: Voodoo seatbelt use: always do you feel safe at home: Yes Review of Systems (Anesthesia) ROS Narrative System reviewed and no additional complaints, except as documented.
--- NOTE | 2024-07-08 14:15 | AMP_PTH ---
PATIENT: DANIELLE DUMAS LOC: MS3 U#:[id number] AGE/SX: 48/M ROOM: [facility] [place] RE07/07/[address]: Dr. Mane Del Rio MD : 1975 BED: 1 DIS: 07/09/2024 SPEC #: [id number] RECD: 07/08/24 15:21 STATUS: CANDY PERALTALatrice #: [id number] BEVERLY: 07/08/24 14:[address]: Eliu Benites DEPT: SURGICAL PATHOLOGY RECD BY: Troy Hernandez ENTERED: 07/08/24 15:53 SP TYPE: Amputation OTHR DR: MD Dr. Mane Enciso MD Dr. Robert Leininger, MD Tissues: A - Toe, NOS B - Toe, NOS Procedures: Decalcification bone/plaque Surgery Specimen Level IV HEADER OPERATION: Left third toe amputation PRE-OP DIAGNOSIS: Osteomyelitis left third toe TISSUE SUBMITTED: A- Amputated left third toe, B- Clearance fragment left third toe MICROSCOPIC DIAGNOSIS A. 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 Left third toe, clearance fragment, biopsy: * No active inflammation MICROSCOPIC DESCRIPTION Slides are reviewed. GROSS DESCRIPTION A. Received in formalin in a container labeled with the patient's name, date of , and amputated left third toe are 3 ivy-pink, irregular, and shaggy pieces of soft tissue ranging from 1.2 x 1.2 x 0.6 cm to 2.0 x 1.5 x 1.3 cm. Due to the disrupted nature, a definitive margin is not recognized. The largest fragment has white-bradford, roughened skin with a 1.0 x 1.0 x 0.3 cm thickened bradford-yellow toenail. The smallest fragment contains firm ivy-yellow bone. The remaining fragments have white-bradford skin with underlying ivy-pink soft tissue. Accounts Receivable Bookkeeper sections are submitted as follows:A1. Mid-sized fragmentA2. Largest fragment with toenail (nail is not submitted)A3. Smallest fragment with bone, following decalcification B. Received in formalin in a container labeled with the patient's name, date of , and clearance fragment left third toe is a 0.9 x 0.5 x 0.3 cm fragment of firm white-ivy bone. One surface appears consistent with a disarticulated joint, and the opposing surface is a smooth and firm resection margin. The specimen is trisected and entirely submitted in B1, following decalcification. B 07-08-2024 CPT:[id number]
[2024-07-08] MEDS: Bupivacaine Mpf 0.5% 30 ML VIAL (14:28)
--- NOTE | 2024-07-08 14:59 | OP.PCM_ITS ---
Operative Report (Standard) Operative Information Date of Procedure: 07/08/24 Pre-Operative Diagnosis: Osteomyelitis left 3rd toe Post-Operative Diagnosis: Same Surgery/Procedure Performed: Partial left 3rd toe amputation rate supervisor: No Type of Anesthesia: Local MAC RN Documented Start/Stop Times: Operation Date: 07/08/24 14:15 Case Time Into Pre-Op 07/08/24 13:40 Anesthesia Start 07/08/24 14:15 Into Room 07/08/24 14:15 Out of Pre-Op 07/08/24 14:17 Procedure Start 07/08/24 14:32 Procedure End 07/08/24 14:56 Anesthesia End 07/08/24 15:00 Out of Room 07/08/24 15:00 Into Recovery 07/08/24 15:03 Out of Recovery 07/08/24 15:44 Procedure Start Time: 14:32 Procedure Stop Time: 14:56 Select all DRAINS/GRAFTS/IMPLANTS that apply: None Estimated Blood Loss: < 1 mL Specimen collected: Yes Description of specimen(s) removed: 1. Amputation part of left 3rd toe sent to pathology 2. Bone biopsy of distal phalanx left 3rd toe sent to microbiology 3. Clearance fragment of middle phalanx left 3rd toe sent to pathology and microbiology Description of surgery: Indications: 48 year old gentleman with peripheral neuropathy and diabetes noted to have wound to distal aspect of the left 3rd toe,xrays obtained and reviewed. Also MRI obtained and reviewed as well of his left foot. MRI findings consistent with osteomyelitis to the distal left 3rd toe, toe is red and swollen, the wound has drainage all consistent with infection. Discussed options with him the options, which include but not limited to trying to save the toe, antibiotics, wound care, offloading, and discussed surgical options. Reviewed the possible benefits vs risks. He ultimately elected to proceed with left 3d toe amputation. The procedure was discussed with him, reviewed possible benefits vs risks, goals, expectations and estimated healing time. Risks include but not limited to infection, need for further surgery, pain, bleeding, transfer lesions, blood clot, delayed or nonhealing. The consent form was reviewed with him and he freely signed it. No guarantees were given nor implied. No warranties were given. Also of note right ankle MRI showed anterior tibial tendon rupture, we discussed the options nonsurgical vs surgical for this as well. He would like to proceed with surgical options but this will have to be postponed until infection is cleared left foot. Operative Procedure: He was brought back to the operating room and was placed on the operating room table in the supine position. The patient was secured to operating table with a safety belt around his waist. He received MAC anesthesia per the anesthesia team. The skin was cleansed with 70% Isopropyl alcohol and a left 3rd toe nerve block was completed using a total of 7mL of 0.5% Bupivacaine plain. A well padded left ankle pneumatic tourniquet was applied. The left foot was scrubbed, prepped, and draped in the usual aseptic fashion. Of note he is already on IV antibiotics. Further attention was directed to the left 3rd toe - there was a distal wound to the toe and there was drainage, there is erythema and edema localized to toe as well. The wound probed very close to the distal phalanx of the left 3rd toe. A timeout was performed and the patient was properly identified and surgical plan confirmed. An incision was made around the toe at 3rd toe at the level of the distal interphalangeal joint using a 15 blade. This was made down to bone and in a way a dorsal and plantar flap was made. The toe was amputated at the distal interphalangeal joint and the head of the middle phalanx was resected using a bone cutting forcepts. The bone of the distal phalanx was notd to be soft and eroded, a bone culture was obtained of the distal phalanx and sent to microbiology. The toe was amputated as noted above and amputated part of the toe was sent to pathology. The head of the middle phalanx appeared healthy and viable, was hard and white, and bone culture was obtained from the head of the proximal phalanx using a bone cutting rongeur and sent to microbiology and pathology as clearance fragment after the site was flushed with copious amounts of normal saline and gloves were changed precautionary. The site was again flushed out with copious amounts of normal saline solution. The remaining tissues appeared healing and viable. The skin was reapproximated using 3-0 Prolene. A dressing was applied which consisted of betadine soaked adaptic, 4x4 gauze, kerlix and haily dressing. The pneumatic tourniquet was deflated and there was immediate return of warmth and perfusion to the foot. Total tourniquet time was 21 minutes. He tolerated the procedure well with no complications. He was transported from the operating room to the recovery room with vital signs stable and in good condition. Post op orders were placed and he will be followed as inpatient. Surgical Findings: As noted above Complications Complications: No
--- NOTE | 2024-07-08 15:07 | PCM.POST.ANE ---
Anesthesia: Postop Eval I Current Vital Signs Temperature: 98.5 F Pulse Rate: 85 Blood Pressure: 113/76 Respiratory Rate: 16 Pulse Ox: 95 Oxygen Delivery Method: Room Air Assessment Airway patent: Yes Spontaneous unlabored respirations: Yes Mental status: Awake and Calm nausea: No Vomiting: No Anesthesia Complication: No Fluid Hydration Crystalloid volume administer (ml): 500 Total IV fluid infused: 500 Progress Note Anesthesia document: Postop Eval 1 completed: Yes
--- NOTE | 2024-07-08 15:10 | RAD_ITS ---
EXAM: XR Left Foot Complete, 3 or More Views CLINICAL INDICATION: POST OP TECHNIQUE: Frontal, lateral and oblique views of the left foot. COMPARISON: No relevant prior studies available. FINDINGS: BONES/JOINTS: Moderate degenerative changes of the intertarsal joint. Moderate degenerative changes of the 1st and 2nd metatarsophalangeal joints. Moderate degenerative changes of the ankle joints. No acute fracture. No dislocation. SOFT TISSUES: Soft tissue swelling. No radiopaque foreign body. RAD/Foot min 3 Views IMPRESSION: Degenerative changes as above. Reading Location: [id number]
--- NOTE | 2024-07-08 15:36 | CHAPLAIN ---
Type of Pastoral Visit _x__ Initial Visit ___ Follow-up Visit ___ On-call Visit ___ General Patient Visit ___ Spiritual Assessment ___ Family Conference ___ Bereavement ___ Rapid Response ___ Code Blue ___ Other (describe below) Pastoral Care Referral From _x__ Patient ___ Family ___ Nurse ___ Physician ___ Software Reliability Engineer ___ Supervisor [employer] ___ Other (describe below) Sacrament/Intervention ___ Active listening ___ Anointing ___ Oriental Orthodox ___ Bereavement ___ Communion ___ Estela exploration ___ ___ Life review ___ Prayer ___ Reconciliation ___ Sacrament of Sick ___ Supportive presence ___ Wedding ___ Other (describe below) Pastoral Comments patient and bed are out of the room; left a calling card
--- NOTE | 2024-07-08 16:13 | POSTOPAN2_ITS ---
Anesthesia Postop Eval I Sum Postop Eval Completion status Anesthesia document: Postop Eval 1 completed: Yes Anesthesia Postop Eval I Summary Anesthesia Postop Eval I Summary: Anesthesia Postop Eval I: Assessment Summary Airway patent Yes 07/08/24 15:07 OPERATION [email or web address] Spontaneous unlabored Yes 07/08/24 15:07 OPERATION MANAGER.SOBR respirations Mental status Awake,Calm 07/08/24 15:07 OPERATION MANAGER.SOBR nausea No 07/08/24 15:07 OPERATION MANAGER.SOBR Vomiting No 07/08/24 15:07 OPERATION MANAGER.SOBR Anesthesia Postop Eval I: Fluid Summary Crystalloid volume administer 500 07/08/24 15:07 OPERATION MANAGER.SOBR (ml) Colloids volume administered ( ml) Blood Product volume administered (ml) Total IV fluid infused 500 07/08/24 15:07 OPERATION MANAGER.SOBR Anesthesia Postop Eval I: Summary Notes Anesthesia Complication No 07/08/24 15:07 OPERATION MANAGER.SOBR Anesthesia Complication Comment: Post-operative progress note Anesthesia: Postop Eval II Evaluation Mental status: Awake Pain Level: 0 nausea: No Vomiting: No
--- NOTE | 2024-07-08 16:13 | PCM.POSTANE2 ---
Anesthesia Postop Eval I Sum Postop Eval Completion status Anesthesia document: Postop Eval 1 completed: Yes Anesthesia Postop Eval I Summary Anesthesia Postop Eval I Summary: Anesthesia Postop Eval I: Assessment Summary Airway patent Yes 07/08/24 15:07 SPA [email or web address] Spontaneous unlabored Yes 07/08/24 15:07 SPA [email or web address] respirations Mental status Awake,Calm 07/08/24 15:07 SPA [email or web address] nausea No 07/08/24 15:07 SPA [email or web address].SOBR Vomiting No 07/08/24 15:07 SPA [email or web address] Anesthesia Postop Eval I: Fluid Summary Crystalloid volume administer 500 07/08/24 15:07 SPA [email or web address] (ml) Colloids volume administered ( ml) Blood Product volume administered (ml) Total IV fluid infused 500 07/08/24 15:07 SPA [email or web address] Anesthesia Postop Eval I: Summary Notes Anesthesia Complication No 07/08/24 15:07 SPA [email or web address] Anesthesia Complication Comment: Post-operative progress note Anesthesia: Postop Eval II Evaluation Mental status: Awake Pain Level: 0 nausea: No Vomiting: No
[2024-07-08] MEDS: Vancomycin Trough/Random Due 1 LAB MC (16:15)
[2024-07-08 16:56] LABS: Vancomycin, Trough Level 11.5 ug/mL (5.0-15.0)
--- NOTE | 2024-07-08 17:06 | PCM.RX.CS ---
Consult Antibiotic Management Pharmacy has been consulted to manage selected antibiotic: Vancomycin Type of Intervention Type of Consult: Follow-up Suspected Infection Suspected Infection: Skin/Soft tissue Prior Doses of Antibiotics Prior Doses of Antibiotics Received/Current Regimen: Vancomycin 1500 mg Q8H last dose given 07/08 @ 0726 Labs Labs: Sodium 139 mmol/L (133-145) 07/08/24 05:10 Potassium 3.7 mmol/L (3.3-5.1) 07/08/24 05:10 Chloride 110 mmol/L (98-108) H 07/08/24 05:10 Carbon Dioxide 18.7 mmol/L (21.0-32.0) L 07/08/24 05:10 Anion Gap 11 (5-15) 07/08/24 05:10 BUN 11 mg/dL (4-19) 07/08/24 05:10 Creatinine 0.69 mg/dL (0.70-1.20) L 07/08/24 05:10 Est GFR (MDRD) Non-Af 114 (>60) 07/08/24 05:10 BUN/Creatinine Ratio 15.8 RATIO (10-20) 07/08/24 05:10 Glucose 94 mg/dL (70-99) 07/08/24 05:10 Vancomycin Trough 11.5 ug/mL (5.0-15.0) 07/08/24 15:27 Microbiology Microbiology: Microbiology 07/07/24 19:40 Wound - Toe Gram Stain - Final 07/07/24 19:40 Wound - Toe Wound Culture - Preliminary Gram positive organism 07/07/24 10:43 Urine, Clean Catch Urine Culture - Preliminary Culture exhibits no growth. Dosing Weight Weight used for dosin kg Estimated Creatinine Clearance Estimated Creatinine Clearance: ~ 200 Goal Trough Goal Trough: 15-20 mcg/mL Pharmacy Plan for Drug Dosing Pharmacy Plan for Drug Dosing: Vancomycin trough = 11.5, increase dose to 1750 mg Q8H. Pharmacy Service will continue to monitor and adjust dosing as required. Follow-Up Labs Follow-Up Labs: Trough: Vancomycin Date/Time Labs Ordered Labs to be done on [date and time ordered]: 07/09/24 @ 1645
[2024-07-08] MEDS: Vancomycin HCl 1,750 MG in 0.9% Normal Saline (500mL Bag) 500 ML 250 MG IV (17:39)
[2024-07-08] MEDS: Lactated Ringers 1,000 ML 15 ML IV (17:40)
[2024-07-08 17:43] LABS: Bedside Glucose 86 mg/dL (74-106)
[2024-07-08] MEDS: Tamsulosin HCl 0.4 MG Capsule PO (20:55)
[2024-07-08 21:51] LABS: Bedside Glucose 112 mg/dL (74-106)
[2024-07-09] MEDS: Vancomycin HCl 1,750 MG in 0.9% Normal Saline (500mL Bag) 500 ML 250 MG IV ×2 (00:38→08:42)
[2024-07-09 06:15] VITALS: BP 121/81; PULSE 81; RESP 16; TEMP 36.8; O2SAT 95
[2024-07-09] MEDS: Ampicillin/Sulbactam 3 GM in 0.9% Normal Saline (100mL MB+) 100 ML IV (06:23)
[2024-07-09 06:38] LABS: Absolute Lymphocyte Count 2.71 X10^3/uL (0.83-4.51); Absolute Neutrophil Count 5.6 X10^3/uL (2.0-7.7); Basophil# 0.06 X10^3/uL; Basophil% 0.6 % (0-1); Eosinophil# 0.12 X10^3/uL; Eosinophils% 1.3 % (0-5); Hematocrit 40.7 % (40-54); Hemoglobin 14.1 g/dL (13.0-16.5); Lymphocyte # 2.71 X10^3/ul (0.83-4.51); Lymphocyte % 29.3 % (19-41); Mean Corp Hgb Conc 34.6 g/dL (32-36); Mean Corpuscular Hgb 29.2 pg (27.0-32.0); Mean Corpuscular Volume 84.3 fL (80-94); Mean Platelet Vol. 9.3 fl (6.2-12.0); Monocyte# 0.74 X10^3/uL; NRBC Flagged by Analyzer 0 % (0-5); Neutrophil # 5.55 X10^3/uL (2.7-7.7); Neutrophil % 60.2 % (47-70); POSITIVE MORPHOLOGY YES; Platelet Count 179 K/mm3 (150-450); RBC Distribution Width CV 13.7 % (11.6-14.6); RBC Distribution Width SD 42.3 fl (35.1-43.9); Red Blood Count 4.83 M/mm3 (4.6-6.2); White Blood Count 9.2 K/mm3 (4.4-11.0)
[2024-07-09 06:43] LABS: Bedside Glucose 101 mg/dL (74-106)
[2024-07-09 06:55] LABS: Differential Indicated SCAN CRITERIA MET
[2024-07-09 08:01] LABS: Anion Gap 10 (5-15); BUN 8 mg/dL (4-19); BUN/Creat Ratio 12.9 RATIO (10-20); Calcium,Total 8.3 mg/dL (7.6-11.0); Carbon Dioxide 22.2 mmol/L (21.0-32.0); Chloride 108 mmol/L (98-108); Creatinine, Serum 0.62 mg/dL (0.70-1.20); EST Glomerular Filtration Rate 118 (>60); Estimated Creatinine Clearance 228.82 ml/min (50-250); Glucose 97 mg/dL (70-99); Potassium 3.2 mmol/L (3.3-5.1); Sodium Level 140 mmol/L (133-145)
[2024-07-09 08:18] LABS: Atypical Lymphocyte 1+ %
[2024-07-09 08:21] VITALS: BP 131/83; PULSE 83; RESP 16; TEMP 36.9; O2SAT 96
[2024-07-09 11:05] LABS: Bedside Glucose 105 mg/dL (74-106)
--- NOTE | 2024-07-09 11:14 | PN.HOSP_ITS ---
Subjective Subjective Doing well, no issues overnight. Pain is controlled. He does have a history of peripheral neuropathy Objective Data Objective Data Vital Signs: Vital Signs Temp Pulse Resp BP Pulse Ox O2 Del Method 98.4 F 83 16 131/83 H 96 Room Air 07/09/24 08:21 07/09/24 08:21 07/09/24 08:21 07/09/24 08:21 07/09/24 08:21 07/09/24 08:21 Oxygen Delivery Method Room Air Weight: 332 lb 7.983 oz Body Mass Index (BMI) 41.5 Intake & Output: Intake and Output for Last 24 Hours 07/08/24 07/09/24 07/10/24 03:59 03:59 03:59 Intake Total 7620 / 7620 3627 / 3627 1348 / 1348 Balance 7620 / 7620 3627 / 3627 1348 / 1348 Lab / Micro Data 07/09/24 06:11 07/09/24 06:11 Labs: Laboratory Results - last 24 hr 07/08/24 11:43: POC Glucose 114 H 07/08/24 15:27: Vancomycin Trough 11.5 07/08/24 17:23: POC Glucose 86 07/08/24 20:58: POC Glucose 112 H 07/09/24 06:11: WBC 9.2, RBC 4.83, Hgb 14.1, Hct 40.7, MCV 84.3, MCH 29.2, MCHC 34.6, RDW Std Deviation 42.3, RDW Coeff of Gabriella 13.7, Plt Count 179, MPV 9.3, Immature Gran % (Auto) 0.600, Neut % (Auto) 60.2, Lymph % (Auto) 29.3, [place] % (Auto) 8.0, Eos % (Auto) 1.3, Baso % (Auto) 0.6, Absolute Neuts (auto) 5.6, Absolute Lymphs (auto) 2.71, Nucleated RBC % 0, Atypical Lymphocytes 1+, Sodium 140, Potassium 3.2 L, Chloride 108, Carbon Dioxide 22.2, Anion Gap 10, BUN 8, C reatinine 0.62 L, Estim Creat Clear Calc 228.82, Est GFR (MDRD) Non-Af 118, BUN/Creatinine Ratio 12.9, Glucose 97, Calcium 8.3 07/09/24 06:24: POC Glucose 101 07/09/24 10:47: POC Glucose 105 Micro: Microbiology 07/07/24 09:34 Blood Culture (Wb) - Anticubital Right Blood Culture - Preliminary No growth in 48 hours. 07/07/24 09:30 Blood Culture (Wb) - Anticubital Left Blood Culture - Preliminary No growth in 48 hours. 07/07/24 10:43 Urine, Clean Catch Urine Culture - Final Culture exhibits no growth. 07/07/24 19:40 Wound - Toe Gram Stain - Final 07/07/24 19:40 Wound - Toe Wound Culture - Preliminary Gram positive organism Radiography Diagnostic Testing: Radiology Impression Lower Extremity MRI 07/08/24 08:30 IMPRESSION: There is diffuse plantar muscular atrophy. 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 There is increased T2, decreased T1 signal in the distal phalanx of the 3rd digit, which meets the criteria for osteomyelitis, sagittal image 21/29. Reading Location: [facility] Lower Extremity MRI 07/08/24 09:02 IMPRESSION: There is a complete tear of the anterior tibial tendon, below the field of view of this exam, with laxity and retraction to the level of the tibiotalar articulation, sagittal image 13/24. There is edema and attenuation in the posterior tibial tendon with increased fluid in the tendon sheath, moderate tenosynovitis. There is increased fluid signal in the distal flexor digitorum tendon sheath, mild tenosynovitis. There is edema in the distal fibula with a subcortical cyst at the distal aspect measuring 0.8 cm. There is subcortical cyst formation in the posterior medial talar dome. There is subcortical cyst formation in the calcaneus at the posterior subtalar joint. There is a edema signal throughout the sinus tarsi with attenuation of the cervical ligament and intermediate and lateral roots of the inferior extensor retinaculum, consistent with sinus tarsi syndrome. There is moderate distal Achilles tendinopathy without tear, with increased fluid in the pre Achilles bursa, with bursitis. There is a edema and attenuation in the anterior and posterior talofibular ligaments without laxity, grade 2 sprains. Reading [facility] Foot X-Ray 07/08/24 15:10 IMPRESSION: Degenerative changes as above. Reading Location: [id number] [place] Physical Exam Narrative General: Alert, Oriented x3, Cooperative, No apparent distress HEENT: Atraumatic, PERRLA, EOMI, Normocephalic Oral: Moist Mucosa Neck: Supple, No JVD Lungs: Diminished, Normal air movement, No rhonchi, No wheeze, No rales Cardiovascular: Regular rate, Regular Rhythm, Normal S1, Normal S2, No murmurs Abdomen: Soft, Non Tender, Non-Distended, No Hepato-splenomegaly Extremities: No edema, Capillary Refill Less than 3 Seconds Skin: No rashes, No breakdown Musculoskeletal: Right ankle is swollen but less tender than it was a week ago, left lower extremity romero with minimal redness, right toe that is being managed by podiatry on the outpatient side. Left toe I&D dressing intact Neurological: No focal neurological deficits, Motor Exam 5/5 strength throughout, peripheral neuropathy chronic otherwise sensation remains unchanged and at baseline Psych/Mental Status: Normal Affect, Appropriate Assessment & Plan Assessment/Plan (1) Osteomyelitis: PLAN: Plan 1. Osteomyelitis of the left toe status post left third toe resection 07/08/2024 ? MRI of left toe demonstrated osteomyelitis ? Continue with Unasyn and vancomycin ? Will consult infectious disease, preliminary cultures with gram-positive organism ? Will consult wound care ? MRI of his right ankle demonstrates a torn ligament/tendon, he will need to have this fixed as an outpatient by podiatry once his infection is cleared up 2. DM2 ? Sign scale insulin ? Accu-Cheks ACHS ? Will hold his home medications ? Will monitor make adjustments as necessary DVT: Heparin Charges/Coding Visit Charges Inpatient E&M: 39886 Subs Hosp L2
--- NOTE | 2024-07-09 11:28 | CASEMGMT ---
Addendum entered by Nicolette Loza 07/09/24 14:41: TC to [facility], requested meds be delivered to pt room. Addendum entered by Nicolette Loza 07/09/24 14:21: Noted dc order placed. NARENDRA CROWE into pt room, pt states that was just in to see him and he stated to stay off of the foot at home. Pt states he will use his crutches. Pt denies any homegoing needs at this time and is anxious to dc. Original Note: Noted pt is non wt bearing. NARENDRA CROWE into pt room, pt walking back to bed on his heel. Pt states he was not aware he was supposed to be non wt bearing. Pt states he has been non wt bearing in the past. He has crutches and a walker at home for this. Discussed with pt nurse, she will reinforce and recommends PT eval. Order entered.
--- NOTE | 2024-07-09 11:46 | PCM.CONS.GEN ---
Assessment & Plan Assessment/Plan (1) Diabetes mellitus with diabetic polyneuropathy: (2) Acute osteomyelitis of toe of left foot: PLAN: Taken to OR 07/08/[address] Benites for distal L 3rd toe amp. Wound cx with staph and GPC. Surg clearance cx pending. On vanc/unasyn. Assuming clearance cx remains neg, plan would be for discharge with one week po doxy 100mg bid and augmentin 875mg bid. If cxs or path show residual infection, would need abx course extended and followup with ID. Ok for discharge home prior to cxs and path being finalized. Will follow, thank you HPI Consult Data Date of Consult: 07/09/24 HPI Narrative Reason for Consultation: osteo HPI Narrative: DANIELLE DUMAS, is a 48 M with DM neuropathy, presented 07/07 with one week fever, chills, and L lower leg rednes, swelling, and mild pain. He had sprained his R ankle a week prior, came to ED, sent home with keflex. Sx worsened, admitted here on vanc/unasyn for L 3rd toe osteo. Seen by podiatry. MRI showed R anterior tibial rupture. Taken to OR 07/08/[address] Benites for distal L 3rd toe amp. Feeling better today, no further fever, pain controlled, no n/v/d. Full ROS performed and neg except as noted above. [facility] Medical History Acute osteomyelitis of toe of left foot Wears glasses Open wound Diabetes Arthritis Family history of malignant neoplasm of colon in father 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 Hyperglycemia Cellulitis of right lower extremity Former smoker COVID-19 Morbid obesity Home Medications ?Medication ?Instructions ?Recorded ?Last Taken ?Type alfuzosin 10 mg tablet,extended 10 mg PO DAILY 02/24/23 05/12/24 History release 24 hr 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 sensor (FreeStyle #4 ea 05/15/23 Unknown Rx Zay 3 Sensor device) 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,dispatcher chief oil,cont #1 ea 05/15/23 Unknown Rx (FreeStyle Zay 3 [place]) alcohol swabs (Alcohol Prep Pads) 1 pad topical .PRN #200 ea 01/14/24 Unknown Rx blood sugar diagnostic (Contour #100 ea 01/14/24 Unknown Rx Test Strips) multivitamin 1 tab PO QDAY 03/25/24 05/10/24 History semaglutide 2 mg/dose (8 mg/3 mL) 2 mg (0.75 mL) subcut QWEEK #3 mL 06/23/24 Unknown Rx subcutaneous pen injector cephalexin 500 mg capsule 500 mg PO Q6 #40 CAPSULES 07/01/24 Unknown Rx metformin 500 mg tablet 500 mg PO DAILY #90 TABLETS 07/06/24 Unknown Rx Allergy/AdvReac Type Severity Reaction Status Date / Time No Known Allergies Allergy Verified 07/07/24 08:59 Family History Father Colon cancer, Onset Age: 40 Diabetes Skin cancer Mother Hypertension Surgical History Hx of amputation of lesser toe History of tonsillectomy Hx of foot surgery History of ankle surgery Social History adopted: No household members: significant other current occupational status: 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 current occupational exposures/hazards: No pets and animals: Yes pets and animals: dog(s) history of recent travel: No sexually active: Yes Smoking Status: Former smoker quit date: 02/18/04 pack-years: 10 Tobacco: How many years used: 10 Smokeless tobacco user: other second hand exposure: No alcohol intake: current alcohol intake frequency: holidays/special occasions only substance use type: does not use well-balanced diet: daily or most days caffeine: Yes eating out: 1-3 times/week during the past year weight has: decreased > 10 lbs frequency: 1-2 times per week duration: 15-30 minutes/day ethan/sikh: Mormonism seatbelt use: always do you feel safe at home: Yes Physical Exam Const alert, oriented x3 and no apparent distress General Appearance: cooperative HEENT normocephalic and head/scalp atraumatic Eyes PERRL and EOMs intact bilaterally Neck supple and No nodes Resp normal air movement and clear to auscultation bilaterally Cardio regular rate and regular rhythm GI soft to palpation, non-tender and non-distended Extremity General Extremity: edema Skin Skin Narrative: L foot wrapped Neuro CN's II-XII intact bilaterally Lab / Micro Data Attestation: I reviewed the patient's lab results. 07/09/24 06:11 07/09/24 06:11 Labs: Laboratory Results - last 24 hr 07/08/24 11:43: POC Glucose 114 H 07/08/24 15:27: Vancomycin Trough 11.5 07/08/24 17:23: POC Glucose 86 07/08/24 20:58: POC Glucose 112 H 07/09/24 06:11: WBC 9.2, RBC 4.83, Hgb 14.1, Hct 40.7, MCV 84.3, MCH 29.2, MCHC 34.6, RDW Std Deviation 42.3, RDW Coeff of Gabriella 13.7, Plt Count 179, MPV 9.3, Immature Gran % (Auto) 0.600, Neut % (Auto) 60.2, Lymph % (Auto) 29.3, Bennett % (Auto) 8.0, Eos % (Auto) 1.3, Baso % (Auto) 0.6, Absolute Neuts (auto) 5.6, Absolute Lymphs (auto) 2.71, Nucleated RBC % 0, Atypical Lymphocytes 1+, Sodium 140, Potassium 3.2 L, Chloride 108, Carbon Dioxide 22.2, Anion Gap 10, BUN 8, Creatinine 0.62 L, Estim Creat Clear Calc 228.82, Est GFR (MDRD) Non-Af 118, BUN/Creatinine Ratio 12.9, Glucose 97, Calcium 8.3 07/09/24 06:24: POC Glucose 101 07/09/24 10:47: POC Glucose 105 Micro: Microbiology 07/07/24 19:40 Wound - Toe Gram Stain - Final 07/07/24 19:40 Wound - Toe Wound Culture - Preliminary Staphylococcus species Gram Positive Cocci 07/07/24 09:34 Blood Culture (Wb) - Anticubital Right Blood Culture - Preliminary No growth in 48 hours. 07/07/24 09:30 Blood Culture (Wb) - Anticubital Left Blood Culture - Preliminary No growth in 48 hours. 07/07/24 10:43 Urine, Clean Catch Urine Culture - Final Culture exhibits no growth. Imaging Radiology Impression Foot X-Ray 07/08/24 15:10 IMPRESSION: Degenerative changes as above. Reading Location: [facility]
--- NOTE | 2024-07-09 13:23 | PN_ITS ---
Subjective Subjective Patient was seen today for follow up on left 3rd toe amputation. He relates he is feeling good and would like to go home if possible. He has no pain to left foot or to right ankle either. He has no complaints. Objective Data Objective Data Vital Signs: Vital Signs Temp Pulse Resp BP Pulse Ox O2 Del Method 98.4 F 83 16 131/83 H 96 Room Air 07/09/24 08:21 07/09/24 08:21 07/09/24 08:21 07/09/24 08:21 07/09/24 08:21 07/09/24 08:21 Oxygen Delivery Method Room Air Weight: 150.819 kg Body Mass Index (BMI) 41.5 Intake & Output: Intake and Output for Last 24 Hours 07/07/24 07/08/24 07/09/24 23:59 23:59 23:59 Intake Total 6290 / 6290 3822 / 3822 2483 / 2483 Balance 6290 / 6290 3822 / 3822 2483 / 2483 Lab / Micro Data 07/09/24 06:11 07/09/24 06:11 Labs: Laboratory Results - last 24 hr 07/08/24 15:27: Vancomycin Trough 11.5 07/08/24 17:23: POC Glucose 86 07/08/24 20:58: POC Glucose 112 H 07/09/24 06:11: WBC 9.2, RBC 4.83, Hgb 14.1, Hct 40.7, MCV 84.3, MCH 29.2, MCHC 34.6, RDW Std Deviation 42.3, RDW Coeff of Gabriella 13.7, Plt Count 179, MPV 9.3, Immature Gran % (Auto) 0.600, Neut % (Auto) 60.2, Lymph % (Auto) 29.3, [place] % (Auto) 8.0, Eos % (Auto) 1.3, Baso % (Auto) 0.6, Absolute Neuts (auto) 5.6, Absolute Lymphs (auto) 2.71, Nucleated RBC % 0, Atypical Lymphocytes 1+, Sodium 140, Potassium 3.2 L, Chloride 108, Carbon Dioxide 22.2, Anion Gap 10, BUN 8, C reatinine 0.62 L, Estim Creat Clear Calc 228.82, Est GFR (MDRD) Non-Af 118, BUN/Creatinine Ratio 12.9, Glucose 97, Calcium 8.3 07/09/24 06:24: POC Glucose 101 07/09/24 10:47: POC Glucose 105 Micro: Microbiology 07/08/24 Unknown Tissue - 3rd Metatarsal Bone Gram Stain - Final 07/08/24 Unknown Bone - 3rd Metatarsal Bone Gram Stain - Final 07/07/24 19:40 Wound - Toe Gram Stain - Final 07/07/24 19:40 Wound - Toe Wound Culture - Preliminary Staphylococcus species Gram Positive Cocci 07/07/24 09:34 Blood Culture (Wb) - Anticubital Right Blood Culture - Preliminary No growth in 48 hours. 07/07/24 09:30 Blood Culture (Wb) - Anticubital Left Blood Culture - Preliminary No growth in 48 hours. 07/07/24 10:43 Urine, Clean Catch Urine Culture - Final Culture exhibits no growth. Radiography Diagnostic Testing: Radiology Impression Foot X-Ray 07/08/24 15:10 IMPRESSION: Degenerative changes as above. Reading Location: [facility] Physical Exam Const alert and oriented x3 Constitutional Narrative: s/p left partial 3rd toe amputation - no necrosis, no drainage, sutures intact, no maloder, no visible abscess here or to rest of foot or ankle or leg, there is some edema and ecchymosis c/w normal course to the left 3rd toe. No dehiscense to left 3rd toe. Calf is soft and supple bilateral with no calf pain bilateral. Right ankle with some edema c/w recent injury and also dorsiflexion is compromised c/w anterior tibial tendon tear. Assessment & Plan Assessment/Plan (1) Left leg cellulitis: (2) Hammertoe of left foot: (3) Diabetes mellitus with diabetic polyneuropathy: (4) Type 2 diabetes mellitus with foot ulcer: (5) Traumatic tear of right anterior tibialis tendon: PLAN: Plan Evaluation performed. Reviewed diagnostic data. s/p partial left 3rd toe amputation on 07/08/2024 - doing well. Reviewed available culture data, final results pending. Patient is on IV antibiotics and Infectious Disease is following. Painted betadine soln to left 3rd toe amp site, covered with gauze, kerlix and haily dressing. Keep clean, dry and intact. Avoid weight on left forefoot. Ordered surgical shoe. Reviewed rest and elevation therapy. Right foot/ankle with complete tear of the anterior tibial tendon - discussed this with patient. Reviewed nonsurgical vs surgical options. Reviewed possible benefits vs risks of each. He would like to proceed with repair of the tendon. Will wait for now due to left 3rd toe. Will touch base with Infectious Disease on this as well. Keep right foot/ankle protected in CAM boot. Patient is going to follow up with me on Friday, sooner if needed. Discussed with Dr. Del Rio.
--- NOTE | 2024-07-09 13:54 | DCINST_ITS ---
Discharge Instructions Diet Discharge Diet: Carb Control Diet DC O2, CPAP, BIPAP needs Home O2 Discharge instructions: No Dressing / Incision Weight Bearing Status: Partial weight bearing (Avoid weight on the left forefoot. Keep right foot in a cam boot) Dressing / Incision Call your doctor if you observe: Fever of 101 or Higher, Shortness of breath, Dizziness, Fainting spells, Swelling in the ankles, Chest pain and Increased palpitations (irregular heartbeat) Follow Up Care Test Results: Test results from this visit will be discussed in further detail at your follow- up appointment, if applicable. Discharge Plan Admission Admit Date/Time: 07/07/24 10:53 Attending Provider: Mane Del Rio Primary Care Provider: Milla Horner Consulting Providers: Eliu Benites; Maksim Albright Instructions Additional Instructions / Restrictions: Follow-up with primary care doctor in 3 to 5 days, if one of the bone fragments is still with infection then you will need a longer course of antibiotics and to follow-up with infectious disease as an outpatient as well. He will follow-up with Dr. Pantoja on Friday who should be able to monitor the cultures and make adjustments to your antibiotics as indicated. Discharge Orders/Prescriptions Prescriptions: New doxycycline monohydrate 100 mg capsule 100 mg PO BID Qty: 14 0RF amoxicillin-pot clavulanate 875-125 mg tablet 1 tab PO BID Qty: 14 0RF Continued (DME) FreeStyle Zay 3 [place] Misc See Rx Instructions .Route Qty: 1 0RF Rx Instructions: As directed (DME) FreeStyle Zay 3 Sensor Device See Rx Instructions .Route Qty: 4 12RF Rx Instructions: As directed semaglutide 2 mg/dose (8 mg/3 mL) pen injector 2 mg subcut QWEEK Qty: 3 1RF Rx Instructions: x4 weeks multivitamin Tablet 1 tab PO QDAY alfuzosin 10 mg tablet extended release 24 hr 10 mg PO DAILY (DME) Contour Test Strips Strip See Rx Instructions .Route Qty: 100 1RF Rx Instructions: As directed alcohol swabs [Alcohol Prep Pads] Pads, Medicated 1 pad topical .PRN Qty: 200 0RF metformin 500 mg tablet 500 mg PO DAILY Qty: 90 0RF Discontinued cephalexin 500 mg capsule 500 mg PO Q6 Qty: 40 0RF Referrals / Follow Up: Milla Horner MD [Primary Care Provider] - Within 1 Week Eliu Benites DPM [Med Staff - Active Staff] - 07/13/24 Disposition Disposition (needs filled in before D/C Order can be placed): Home, Self Care
--- NOTE | 2024-07-09 14:02 | PCM.DC.SUM ---
Providers Date of Admission: 07/07/24 Primary Care Physician: Dr. Milla Horner MD Consultations 07/07/24 15:58 Consult: Podiatry Routine Consulting Provider: Eliu Benites Reason for Consult: Bilateral foot wounds, was to see patient in office today EMERGENT Consult: No Notified: Yes Date Notified: 07/07/24 Time Notified: 16:50 Method of Notification: Text 07/08/24 10:49 Consult: Infectious Disease Routine Consulting Provider: Maksim Albright Reason for Consult: Left toe infection/osteo EMERGENT Consult: No Notified: Yes Date Notified: 07/08/24 Time Notified: 10:57 Method of Notification: Text Consult: Onc/Wound/chainstitch elastic attacher Routine Comment: Reason For Visit: CELLULITIS Diagnosis Discharge Diagnosis (1) Left leg cellulitis: Status: Acute Code(s): L03.116 - Cellulitis of left lower limb (2) Hammertoe of left foot: Status: Acute Code(s): M20.42 - Other hammer toe(s) (acquired), left foot (3) Diabetes mellitus with diabetic polyneuropathy: Status: Acute Code(s): E11.42 - Type 2 diabetes mellitus with diabetic polyneuropathy (4) Type 2 diabetes mellitus with foot ulcer: Status: Acute Code(s): E11.621 - Type 2 diabetes mellitus with foot ulcer; L97.509 - Non-pressure chronic ulcer of other part of unspecified foot with unspecified severity (5) Traumatic tear of right anterior tibialis tendon: Status: Acute Code(s): S86.211A - Strain of muscle(s) and tendon(s) of anterior muscle group at lower leg level, right leg, initial encounter Medications at Discharge Home Medications alfuzosin 10 mg tablet,extended release 24 hr 10 mg PO DAILY 02/24/23 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 sensor (FreeStyle Zay 3 Sensor device) #4 ea 05/15/23 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,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,cont (FreeStyle Zay 3 [place]) #1 ea 05/15/23 alcohol swabs (Alcohol Prep Pads) 1 pad topical .PRN #200 ea 01/14/24 blood sugar diagnostic (Contour Test Strips) #100 ea 01/14/24 multivitamin 1 tab PO QDAY 03/25/24 semaglutide 2 mg/dose (8 mg/3 mL) subcutaneous pen injector 2 mg (0.75 mL) subcut QWEEK #3 mL 06/23/24 metformin 500 mg tablet 500 mg PO DAILY #90 TABLETS 07/06/24 amoxicillin 875 mg-potassium clavulanate 125 mg tablet 1 tab PO BID #14 tabs 07/09/24 doxycycline monohydrate 100 mg capsule 100 mg PO BID #14 caps 07/09/24 Hospital Course Operations - (Partial left 3rd toe amputation) Procedures None Summary of Care Provided Minutes Spent on Discharge: 33 Hospital Course: Per HPI: DANIELLE DUMAS, is a 48 M who presents to the hospital with fever and chills at home. He was seen in the hospital about a week ago for a right sprained ankle after he jumped into a ditch at home and then was found to have a left sided cellulitis so he was sent home on Keflex. He did feel better initially and then progressively got worse today where he had slightly elevated temperature to 99 degrees and had some rigors and chills. He does have a leukocytosis this admission to 12.1 unfortunately no CBC was obtained during his ER visit as that was primarily for his right ankle strain at that time. ESR and CRP were slightly elevated so an x-ray was taken of his left lower extremity that showed a possible osteomyelitis of the fibula which is old but hide so he was on broad antibiotics with the plan to obtain an MRI. Hospital Course: 1. Osteomyelitis of the left third toe in the setting of type 2 diabetes?48-year-old male presented to the hospital with signs and symptoms consistent with left toe infection. He had had cellulitis diagnosed a week earlier on his left lower extremity after he presented to the hospital for a right ankle sprain after jumping to the ditch at work. The cellulitis had resolved but he developed chills and a leukocytosis when he came back to the hospital was noted that he had what looked like possible cellulitis of his left toe. MRI was obtained and demonstrated osteomyelitis of the left toe so podiatry was consulted and they performed a partial third toe amputation on the left foot. Infectious disease was consulted recommended Doxy 100 mg p.o. twice daily as well as Augmentin twice daily for 1 week. There were clearance cultures obtained so if these are negative then once he completes his weeklong antibiotic course he should be fine however he will follow-up with podiatry on Friday and if the clearance cultures are growing then antibiotics will be adjusted and he will need to follow-up with infectious disease as an outpatient. Discussed with him plan for discharge today as per his understanding the risks and benefits of going home and would like to go home today. He is to be partial weightbearing on his left foot and to avoid the forefoot is much as possible, and he will wear a cam boot for his right ankle as he did tear the anterior tibial tendon. He will need to follow-up with podiatry as well once the infection is cleared to discuss possible intervention for his right anterior tibial tendon tear. Weight / BMI Weight Weight: 332 lb 7.983 oz Body Mass Index (BMI) 41.5 ABG / Lab / Microbiology Data 07/09/24 06:11 07/09/24 06:11 Laboratory: Laboratory Results - last 24 hr 07/08/24 15:27: Vancomycin Trough 11.5 07/08/24 17:23: POC Glucose 86 07/08/24 20:58: POC Glucose 112 H 07/09/24 06:11: WBC 9.2, RBC 4.83, Hgb 14.1, Hct 40.7, MCV 84.3, MCH 29.2, MCHC 34.6, RDW Std Deviation 42.3, RDW Coeff of Gabriella 13.7, Plt Count 179, MPV 9.3, Immature Gran % (Auto) 0.600, Neut % (Auto) 60.2, Lymph % (Auto) 29.3, [place] % (Auto) 8.0, Eos % (Auto) 1.3, Baso % (Auto) 0.6, Absolute Neuts (auto) 5.6, Absolute Lymphs (auto) 2.71, Nucleated RBC % 0, Atypical Lymphocytes 1+, Sodium 140, Potassium 3.2 L, Chloride 108, Carbon Dioxide 22.2, Anion Gap 10, BUN 8, Creatinine 0.62 L, Estim Creat Clear Calc 228.82, Est GFR (MDRD) Non-Af 118, BUN/Creatinine Ratio 12.9, Glucose 97, Calcium 8.3 07/09/24 06:24: POC Glucose 101 07/09/24 10:47: POC Glucose 105 Microbiology: Microbiology 07/08/24 Unknown Tissue - 3rd Metatarsal Bone Gram Stain - Final 05/22/25 Unknown Bone - 3rd Metatarsal Bone Gram Stain - Final 07/07/24 19:40 Wound - Toe Gram Stain - Final 07/07/24 19:40 Wound - Toe Wound Culture - Preliminary Staphylococcus species Gram Positive Cocci 07/07/24 09:34 Blood Culture (Wb) - Anticubital Right Blood Culture - Preliminary No growth in 48 hours. 07/07/24 09:30 Blood Culture (Wb) - Anticubital Left Blood Culture - Preliminary No growth in 48 hours. 07/07/24 10:43 Urine, Clean Catch Urine Culture - Final Culture exhibits no growth. Radiography Diagnostic Testing: Radiology Impression Foot X-Ray 07/08/24 15:10 IMPRESSION: Degenerative changes as above. Reading Location: [facility] D/C Instructions Discharge Diet: Carb Control Diet Weight Bearing Status: Partial weight bearing (Avoid weight on the left forefoot. Keep right foot in a cam boot) Call your doctor if you observe: Fever of 101 or Higher, Shortness of breath, Dizziness, Fainting spells, Swelling in the ankles, Chest pain and Increased palpitations (irregular heartbeat) DC O2, CPAP, BIPAP Needs Home O2 Discharge instructions: No Meaningful Use Info Meaningful Use Meaningful Use Diagnoses (Choose all that apply): None applicable Ischemic Stroke Statin Dosing Therapy Reference: STATIN DOSE THERAPY REFERENCE: * Patients > 75 years receive moderate or high dose statin therapy. * Patients 75 years or YOUNGER should receive HIGH intensity statin dose unless contraindicated. You will be required to document reason for non-treatment if statin daily dose does not meet guidelines. HIGH DOSE STATIN THERAPY DAILY Atorvastatin > than or = to 40 mg Rosuvastatin > than or = to 20 mg Amlodipine + Atorvastatin > than or = to 2.5/40 mg Ezetimibe + Simvastatin 10/80 mg Simvastatin 80mg Discharge Plan Admission Admit Date/Time: 07/07/24 10:53 Attending Provider: Mane Del Rio Primary Care Provider: Milla Horner Consulting Providers: Eliu Benites; Maksim Albright Instructions Additional Instructions / Restrictions: Follow-up with primary care doctor in 3 to 5 days, if one of the bone fragments is still with infection then you will need a longer course of antibiotics and to follow-up with infectious disease as an outpatient as well. He will follow-up with Dr. Pantoja on Friday who should be able to monitor the cultures and make adjustments to your antibiotics as indicated. Discharge Orders/Prescriptions Prescriptions: New doxycycline monohydrate 100 mg capsule 100 mg PO BID Qty: 14 0RF amoxicillin-pot clavulanate 875-125 mg tablet 1 tab PO BID Qty: 14 0RF Continued (DME) FreeStyle Zay 3 [place] Misc See Rx Instructions .Route Qty: 1 0RF Rx Instructions: As directed (DME) FreeStyle Zay 3 Sensor Device See Rx Instructions .Route Qty: 4 12RF Rx Instructions: As directed semaglutide 2 mg/dose (8 mg/3 mL) pen injector 2 mg subcut QWEEK Qty: 3 1RF Rx Instructions: x4 weeks multivitamin Tablet 1 tab PO QDAY alfuzosin 10 mg tablet extended release 24 hr 10 mg PO DAILY (DME) Contour Test Strips Strip See Rx Instructions .Route Qty: 100 1RF Rx Instructions: As directed alcohol swabs [Alcohol Prep Pads] Pads, Medicated 1 pad topical .PRN Qty: 200 0RF metformin 500 mg tablet 500 mg PO DAILY Qty: 90 0RF Discontinued cephalexin 500 mg capsule 500 mg PO Q6 Qty: 40 0RF Referrals / Follow Up: Milla Horner MD [Primary Care Provider] - Within 1 Week Eliu Benites DPM [Med Staff - Active Staff] - 07/13/24 Disposition Disposition (needs filled in before D/C Order can be placed): Home, Self Care Charges/Coding Visit Charges Inpatient E&M: 51113 Disch Hosp >30min
--- NOTE | 2024-07-09 14:57 | PHA.DC_ITS ---
Pharmacy [facility] Counseling Pharmacy Service has performed discharge medication reconciliation and counseling for this patient. 1. AUGMENTIN 875/125MG PO BID X 7 DAYS 2. DOXYCYCLINE 100MG PO BID X 7 DAYS The patient's discharge medication list was reviewed for discrepancies and discrepancies were resolved. The patient was counseled on the following discharge medications and changes in medications for homegoing were reviewed. The Reason for Use, instructions for use, and potential side effects were reviewed for all new medications. The patient's questions regarding all of their medications were answered. The patient was able to verbally demonstrate an understanding of their discharge medications. 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
[2024-07-09 15:00] VITALS: BP 134/92; PULSE 79; RESP 18; TEMP 36.4; O2SAT 100
--- NOTE | 2024-07-09 15:15 | CHAPLAIN ---
Type of Pastoral Visit _x__ Initial Visit ___ Follow-up Visit ___ On-call Visit ___ General Patient Visit ___ Spiritual Assessment ___ Family Conference ___ Bereavement ___ Rapid Response ___ Code Blue ___ Other (describe below) Pastoral Care Referral From _x__ Patient ___ Family ___ Nurse ___ Physician ___ Double Reamer Operator ___ Dining Room Busser ___ Other (describe below) Sacrament/Intervention _x__ Active listening ___ Anointing ___ Shinto ___ Bereavement ___ Communion ___ Estela exploration ___ ___ Life review ___ Prayer ___ Reconciliation ___ Sacrament of Sick ___ Supportive presence ___ Wedding ___ Other (describe below) Pastoral Comments DR was just leaving room of this patient; pt is greeted by this television reporter to offer support; pt says that he is doing well and will be discharged today; pt says that he does not need anything; parents of the patient are in the room with him and giving support
== END 2024-07-09 15:27 | disposition home or self-care (01) | DRG 623 ==
LOC: ED 10:45 → MS3 07-08 07:03
PROVIDERS: Podiatrist; Admitting Provider Family Medicine; Emergency Provider Emergency Medicine; PCP Internal Medicine; Visit Provider Family Medicine
PROC: 0JBR0ZZ Excision of Left Foot Subcutaneous Tissue and Fascia, Open Approach (ICD-10-PCS; principal; 2024-07-08 14:00)
DX: E11.69 Type 2 diabetes mellitus with other specified complication (principal); E87.20 Acidosis, unspecified; M86.172 Other acute osteomyelitis, left ankle and foot; E11.621 Type 2 diabetes mellitus with foot ulcer; E11.42 Type 2 diabetes mellitus with diabetic polyneuropathy; E11.65 Type 2 diabetes mellitus with hyperglycemia; B96.89 Other specified bacterial agents as the cause of diseases classified elsewhere; M20.42 Other hammer toe(s) (acquired), left foot; S86.201A Unspecified injury of muscle(s) and tendon(s) of anterior muscle group at lower leg level, right leg, initial encounter; L97.529 Non-pressure chronic ulcer of other part of left foot with unspecified severity; S86.211A Strain of muscle(s) and tendon(s) of anterior muscle group at lower leg level, right leg, initial encounter; W17.89XA Other fall from one level to another, initial encounter; M19.90 Unspecified osteoarthritis, unspecified site; M62.89 Other specified disorders of muscle; M76.62 Achilles tendinitis, left leg; Z87.891 Personal history of nicotine dependence; Z83.3 Family history of diabetes mellitus; Z79.84 Long term (current) use of oral hypoglycemic drugs; Z86.16 Personal history of COVID-19; Z79.899 Other long term (current) drug therapy; M89.562 Osteolysis, left lower leg; R93.6 Abnormal findings on diagnostic imaging of limbs; Z87.81 Personal history of (healed) traumatic fracture
CPT/HCPCS: 36415; 71045; 73590; 73630; 73718; 73720; 73721; 80048; 80053; 80202; 81001; 82962; 83605; 85025; 85610; 85652; 85730; 86140; 87015; 87040; 87070; 87075; 87077; 87086; 87102; 87116; 87176; 87186; 87205; 87206; 88305; 88311; 93005; 99285; A9575; A4216; J0295

== ENCOUNTER 2024-07-23 06:00 | Day surgery (SDC) | payer OTHER, SELFPAY ==
[2024-07-23] VITALS (10 sets, daily range): BP systolic 94–134; BP diastolic 66–70; PULSE 87–93; RESP 16; TEMP 36.6–36.8; O2SAT 93–96; BMI 40.2
--- OUTSIDE RECORDS SUMMARY | 2024-07-23 06:03 | XMS RPT_ITS | CCD ---
Author Organization [facility] Care Team Providers Care Office Employee Name Role Phone AVANI MARROQUIN Attending Unavailable AVANI MARROQUIN Primary Care Unavailable AVANI MARROQUIN Admitting Unavailable Rory Smith MD Primary Care Provider Dr. Sun Brar Primary Care Provider ANA Magdaleno Emergency Provider Dr. Nataliia León Admit Provider Dr. Nataliia León Attending Provider Dr. Nataliia eLón Other Provider Dr. Ayad Monte Other Provider Unavailable Primary Care Provider UnavailRory Peterson MD Primary Care Provider Unavailable Primary Care Provider UnavailSUN Etienne MD Primary Care Physician SUN BRAR MD Primary Care Unavailab ISAAC Perez MD Attending Unavailable Dr. Vlad Smith Primary Care Provider Dr. Vlad Smith Referring Provider Lila SONOGRAPHER, MIYA-Carlos Diamond Attending Provider Sun Brar MD Primary Care Provider [phone] SUN BRAR Primary Care Unavailable Dr. Sun Brar Primary Care Provider [phone] Dr. Sun Brar Other Provider Dr. Steffen Gutierrez Other Provider Unavailable Dr. Eliu Benites Admit Provider Dr. Eliu Benites Referring Provider Dr. Eliu Benites Other Provider Dr. Milla Horner Other Provider Dr. Cas Sams Other Provider Dr. Merle Cunningham Other Provider Pal SONOGRAPHER, SONOGRAPHER-C Layne Other Provider Unavail able Sierra, SONOGRAPHER-C Grazyna Other Provider Joe SONOGRAPHER, SONOGRAPHER-C Jah Other Provider [phone] ANA Ramirez Other Provider [phone] ANA Watson Other Provider Unavailable Dr. Xiomara Manley Attending Provider [phone] Maksim Albright Other Provider [phone] Dr. Levi Carter Attending Provider [phone] Levi Carter Other Provider Dr. Sun Brar Primary Care Provider Dr. Sun Brar Other Provider Dr. Steffen Gutierrez Other Provider Unavailable Dr. Eliu Benites Admit Provider Dr. Eliu Benites Referring Provider Dr. Eliu Benites Other Provider Dr. Milla Horner Other Provider Dr. Cas Sams Other Provider Dr. Merle Cunningham Other Provider Pal SONOGRAPHER, SONOGRAPHER-C Layne Other Provider MIYA Esquivel-Carlos Jimenez Other Provider [phone] Joe SONOGRAPHER, SONOGRAPHER-C Jah Other Provider ANA Ramirez Other Provider ANA Watson Other Provider Unavailable Dr. Xiomara Manley Attending Provider [phone] Maksim Albright Other Provider Dr. Levi Carter Attending Provider Dr. Leiv Carter Other Provider Dr. Sun Brar Referring Provider Sierra, SONOGRAPHER-C Grazyna Attending Provider [phone] Ferconsueloo SONOGRAPHER-C, Grazyna Referring Provider Siri LEAL, Dr. Loyola Attending Provider Lisa Parker Attending Provider Unavailable Siri LEAL, Dr. Loyola Primary Care Provider Delmis CHAPMAN, Dr. Nowak Attending Provider Siri LEAL, Dr. Loyola Referring Provider Zully LEAL, Dr. Francois Attending Provider Zully LEAL, Dr. Francois Other Provider Dr. Ayad Baker DO Emergency Provider Dr. Ayad Baker DO Attending Provider Ismael Ling MD Emergency Provider Quang LEAL, Dr. Mane Gonzalez Admit Provider Quang LEAL, Dr. Mane Gonzalez Attending Provider Lisa Parker Attending Unavailable Siri, Milla Referring Unavailable Siri, Milla Primary Care Unavailable Alessandro Andrea Attending Unavailable Trenton, Milla Primary Care Unavailable Eliu Benites Referring Unavailable Eliu Benites Attending Unavailable Trenton, Milla Primary Care Unavailable Mane Del Rio Admitting Unavailable Mane Del Rio Attending Unavailable Mane Del Rio Consulting Unavailable Eliu Benites Consulting Unavailable Siri, Milla Referring Unavailable Siri, Milla Attending Unavailable Siri, Milla Primary Care Unavailable Grazyna Esquivel Attending Unavailable Juan Carloso, Grazyna Primary Care Unavailable Sun Brar Referring Unavailable Trenton, Milla Attending Unavailable Ferullo, Grazyna Referring Unavailable Ferullo, Grazyna Primary Care Unavailable Ferullo, Grazyna Referring Unavailable Ferullo, Grazyna Attending Unavailable Trenton, Milla Referring Unavailable Siri, Milla Primary Care Unavailable Alessandro Andrea Attending Unavailable Alessandro Andrea Consulting Unavailable Maksim Albright Consulting Unavailable Eliu Benites Referring Unavailable Eliu Benites Attending Unavailable Ferullo, Grazyna Primary Care Unavailable Ursula, Nghia Attending Unavailable Ferullo, Grazyna Primary Care Unavailable Ursula, Nghia Referring Unavailable Siri, Milla Primary Care Unavailable Eliu Benites Attending Unavailable Ayad Baker Attending Unavailable Trenton, Milla Primary Care Unavailable Siri, Milla Primary Care Unavailable Eliu Benites Consulting Unavailable Mane Del Rio Attending Unavailable Mane DelR io Admitting Unavailable Maksim Albright Unavailable Medications Current Medications Medication Drug Class(es) Dates Sig (Normalized) Sig (Original) 24 hr alfuzosin hydrochloride 10 mg extended release oral tablet (7 sources) alpha-Adrenergic Chitra Start: 02-24-2023 take 1 tablet by mouth once daily Alfuzosin 10 mg tablet extended release 24 hr Active 10 mg PO DAILY February 24, 2023 1:00am take 1 tablet by judith th once daily, then take 1 tablet by mouth every twenty-four hours alfuzosin SR (UROXATRAL) 10 mg 24 hr tablet Take 10 mg by mouth once daily. 0 Active Comment on above: Take 10 mg by mouth once daily. Blood-Glucose Meter,Continuous (Freestyle Zay 3 Ubly) misc (4 sources) Start: 4 Blood-Glucose Meter,Continuous (Freestyle Zay 3 Ubly) misc Active 0 .Route 1 May 15, 2023 12:00am As directed Blood-Glucose Sensor (Freestyle Zay 3 Sensor) device (5 sources) Start: 4 Blood-Glucose Sensor (Freestyle Zay 3 Sensor) device Active 0 .Route 4 May 15, 2023 12:00am As directed Blood-Glucose,Recei cristina,Cont (Freestyle Zay 3 Ubly) misc (1 source) Start: 4 Blood-Glucose,Recei cristina,Cont (Freestyle Zay 3 Ubly) misc Active 0 .Route May 15, 2023 12:00am As directed cephalexin 500 mg oral capsule (13 sources) Cephalosporin Antibacterial Start: take 1 capsule by mouth every six hours Cephalexin 500 mg capsule Active 500 mg PO EVERY 6 HOURS July 01, 2024 12:00am Start: 05-30-2021 End: 03-05-2022 take 1 capsule by mouth every six hours Cephalexin 500 mg capsule Discontinued 500 mg PO EVERY 6 HOURS May 30, 2021 12:00am March 05, 2022 2:31pm Insulin Syr/Ndl U100 Half Ma rk (2 sources) Start: 02-28-2023 Insulin Syr/Nd l U100 Half Jah Active 0 .Route February 28, 2023 1:00am As directed Start: 02-28-2023 Insulin Syr/Nd l U100 Half Jah Active 0 .Route February 28, 2023 12:00am As directed isopropyl alcohol 0.7 ml/ml medicated pad (9 sources) Start: 05-20-2023 End: 01-14-2024 Alcohol Swabs (Alcohol Prep Pads) pads, medicated Active 1 NMA TOPICAL .PRN 200 January 14, 2024 1:35pm Start: 05-20-2023 Alcohol Swabs (Alcohol Prep Pads) pads, medicated Active 1 PAD TOPICAL .PRN 200 May 20, 2023 12:00am metFORMIN hydrochloride 500 mg oral tablet (20 sources) Biguanide Start: 12-02-2023 End: 07-06-2024 take 1 tablet by mouth once daily Metformin 500 mg tablet Active 500 mg PO DAILY July 06, 2024 1:55pm Start: 07-01-2023 End: 12-02-2023 take 1 tablet by mouth twice daily Metformin 500 mg tablet Discontinued 500 mg PO TWICE A DAY August 19, 2023 3:01pm December 02, 2023 8:49am Start: 05-20-2023 End: 07-01-2023 take 1 tablet by mouth once daily, then take 1 tablet by mouth twice daily Metformin 500 mg tablet Discontinued 500 mg PO TWICE A DAY May 20, 2023 12:00am July 01, 2023 7:36am take 500 mg daily x3 days, then increase to 500 mg twice a day Start: 06-01-2021 End: 02-01-2023 take 1 tablet by mouth twice daily at mealtime metFORMIN (GLUCOPHAGE) 500 mg tablet Take 1 tablet by mouth twice daily with meals. 60 tablet 2 06/01/2021 02/01/2023 Discontinued Comment on above: Take 1 tablet by judith twice daily with meals. Multivitamin tablet (4 sources) Start: 5 Multivitamin tablet Active 1 {tbl} PO daily March 25, 2024 1:00am predniSONE 20 mg oral tablet (1 source) Start: 2 End: 2 take 2 tablets by mouth once daily predniSONE (DELTASONE) 20 mg tablet Take 2 tablets by mouth once daily for 3 days. 6 tablet 0 01/22/2022 01/25/2022 Active Comment on above: Take 2 tablets by [facility] once daily for 3 days. Semaglutide (1 source) Start: 4 Semaglutide Active 0.25 MG SC EVERY WEEK 3 May 20, 2023 12:00am for 4 weeks Semaglutide 2 mg/dose (8 mg/3 mL) pen injector (16 sources) Start: 5 Semaglutide 2 mg/dose (8 mg/3 mL) pen injector Active 2 mg SC EVERY WEEK 3 June 23, 2024 11:22am x4 weeks Start: 06-01-2024 End: 06-23-2024 Semaglutide 2 mg/dose (8 mg/ 3 mL) pen injector Discontinued 2 mg SC EVERY WEEK 3 June 01, 2024 9:37am June 23, 2024 11:22am x4 weeks Start: 04-12-2024 End: 06-01-2024 Semaglutide 2 mg/dose (8 mg/ 3 mL) pen injector Discontinued 2 mg SC EVERY WEEK 3 April 12, 2024 11:07am June 01, 2024 9:37am x4 weeks Start: 04-12-2024 Semaglutide 2 mg/dose (8 mg/3 mL) pen injector Active 2 mg SC EVERY WEEK 3 April 12, 2024 11:07am x4 weeks Start: 02-10-2024 End: 04-12-2024 Semaglutide 2 mg/dose (8 mg/ 3 mL) pen injector Discontinued 2 mg SC EVERY WEEK 3 February 10, 2024 11:53am April 12, 2024 11:07am x4 weeks Start: 12-02-2023 End: 02-10-2024 Semaglutide 2 mg/dose (8 mg/ 3 mL) pen injector Discontinued 2 mg SC EVERY WEEK 3 December 02, 2023 8:43am February 10, 2024 11:53am x4 weeks Completed/Discontinued Medications Medication Drug Class(es) Dates Sig (Normalized) Sig (Original) acetaminophen 325 mg / oxyCODONE hydrochloride 5 mg oral tablet (20 sources) Opioid Agonist Start: 02-27-2023 End: 05-15-2023 Oxycodone-Acetamino phen (Percocet) 5-325 mg tablet Discontinued 1 {tbl} PO EVERY 6 HOURS as needed for pain 12 3 February 27, 2023 May 15, 2023 11:36am Start: 06-13-2019 End: 06-16-2019 Oxycodone-Acetaminophen 1 TA BLET tablet Discontinued 1 - 2 {tbl} PO EVERY 4 HOURS NEEDED as needed for Pain 30 3 June 13, 2019 June 15, 2019 12:00am June 16, 2019 12:02am Start: 06-13-2019 End: 06-16-2019 take 1 tablet by mouth every four hours as needed Oxycodone-Acetaminophen Discontinued 1 - 2 TABLET PO EVERY 4 HOURS NEEDED 30 3 June 13, 2019 June 15, 2019 11:02pm Start: 06-11-2019 End: 06-15-2019 Oxycodone-Acetaminophen 1 TA BLET tablet Discontinued 1 - 2 {tbl} PO EVERY 6 HOURS NEEDED as needed for Pain 30 4 June 11, 2019 June 14, 2019 12:00am June 15, 2019 12:02am Start: 06-11-2019 End: 06-15-2019 take 1 tablet by mouth every six hours as needed Oxycodone-Acetaminophen Discontinued 1 - 2 TABLET PO EVERY 6 HOURS NEEDED 30 4 June 11, 2019 June 14, 2019 11:02pm Start: 12-20-2016 End: 04-30-2019 Oxycodone-Acetaminophen 1 TA BLET tablet Discontinued 1 - 2 {tbl} PO EVERY 4 HOURS NEEDED as needed for Pain 50 December 20, 2016 12:00am April 30, 2019 11:01am Start: 12-20-2016 End: 04-30-2019 take 1 tablet by mouth every four hours as needed Oxycodone-Acetaminophen Discontinued 1 - 2 TABLET PO EVERY 4 HOURS NEEDED 50 December 20, 2016 12:00am April 30, 2019 11:01am [id number] 200 actuat albuterol 0.09 mg/actuat metered dose inhaler (4 sources) beta2-Adrenergic Agonist Start: 01-28-2019 End: 05-18-2021 take 2 puff(s) by inhalation every four hours as needed albuterol HFA (PROAIR HFA) 90 mcg/actuation inhaler Inhale 2 Puffs as instructed every 4 hours as needed. 1 Inhaler 0 01/28/2019 05/18/2021 Discontinued (Course of therapy completed) Comment on above: Inhale 2 Puffs as instructed every 4 ru rs as needed. amoxicillin 875 mg / clavulanate 125 mg oral tablet (16 sources) Penicillin-class Antibacterial Start: 02-28-2023 End: 05-15-2023 Amoxicillin-Pot Clavulanate 875-125 mg tablet Discontinued 1 {tbl} PO TWICE A DAY February 28, 2023 1:00am May 15, 2023 11:35am Start: 02-28-2023 End: 05-15-2023 take 1 tablet by mouth twice daily Amoxicillin-Pot Clavulanate Discontinued 1 TABLET PO TWICE A DAY February 28, 2023 1:00am May 15, 2023 11:35am Start: 09-21-2022 End: 10-01-2022 take 1 tablet by mouth every twelve hours amoxicillin-clavulanate 875 mg-125 mg oral tablet 1 tab(s), Oral, q12h, X 10 day(s), # 20 tab(s), 0 Refill(s), 10/01/22 7:57:00 PM EDT Start Date: 09/21/22 Stop Date: 10/01/22 Status: Ordered Start: 02-27-2022 End: 08-11-2022 Amoxicillin-Pot Clavulanate 875-125 mg tablet Discontinued 1 {tbl} PO TWICE A DAY February 27, 2022 1:00am August 11, 2022 9:16am Start: 02-27-2022 End: 08-11-2022 take 1 tablet by mouth twice daily Amoxicillin-Pot Clavulanate Discontinued 1 TABLET PO TWICE A DAY February 27, 2022 1:00am August 11, 2022 9:16am Start: 01-22-2022 End: 01-27-2022 take 1 tablet by mouth twice daily amoxicillin-clavulanic acid (AUGMENTIN) 875-125 mg per tablet Take 1 tablet by mouth twice daily for 5 days. 10 tablet 0 01/22/2022 01/27/2022 Active Comment on above: Take 1 tablet by judith twice daily for 5 days. benzonatate 100 mg oral capsule (6 sources) Non-narcotic Antitussive Start: End: take 2 capsules by mouth every eight hours as needed benzonatate (TESSALON PERLE) 100 mg capsule Take 2 capsules by mouth three times daily as needed. 30 capsule 0 01/22/2022 02/01/2023 Discontinued Start: 01-24-2019 End: 05-18-2021 benzonatate (TESSALON PERLE) 100 mg capsule Take 1-2 capsules tid prn 30 capsule 0 01/24/2019 05/18/2021 Discontinued (Course of therapy completed) Comment on above: Take 1-2 capsules ti d prn Take 2 capsules by m out three times daily as needed. brompheniramine maleate 0.4 mg/ml / dextromethorphan hydrobromide 2 mg/ml / pseudoephedrine hydrochloride 6 mg/ml oral solution (4 sources) alpha-Adrenergic Agonist, Uncompetitive B-lqxtzt-I-aspartate Receptor Antagonist, Sigma-1 Agonist Start: 019 End: 022 take 5 mL by mouth every six hours as needed Brompheniramine-Pseu doeph-DM (BROMFED DM) 2-30-10 mg/5 mL syrup Take 5 mL by mouth four times daily as needed. 118 mL 0 01/28/2019 05/18/2021 Discontinued (Course of therapy completed) Comment on above: Take 5 mL by mouth f our times daily as needed. cefadroxil 1000 mg oral tablet (12 sources) Cephalosporin Antibacterial Start: End: take 1 tablet by mouth once daily Cefadroxil 1 GM tablet Discontinued 1 g PO DAILY December 20, 2016 12:00am April 30, 2019 11:01am cefTRIAXone 2000 mg injection (12 sources) Cephalosporin Antibacterial Start: End: Ceftriaxone 2 GM recon soln Discontinued 2 g IV EVERY 24 HOURS July 29, 2019 12:00am August 24, 2019 12:00am August 25, 2019 12:02am stop date 08/24/19 dx: foot septic arthritis weekly bmp, cbc, and esr. Fax to [phone] ciprofloxacin 500 mg oral tablet (7 sources) Quinolone Antimicrobial Start: End: take 1 tablet by mouth twice daily Ciprofloxacin Hcl (Cipro) 500 mg tablet Discontinued 500 mg PO TWICE A DAY February 01, 2023 1:00am February 24, 2023 8:13pm ciprofloxacin 3 mg/ml / dexamethasone 1 mg/ml otic suspension (8 sources) Corticosteroid, Quinolone Antimicrobial Start: End: Ciprofloxacin-Dexame thasone (Ciprodex) 0.3-0.1 % drops,suspension Discontinued 4 NMA OTIC TWICE A DAY 7.5 7 March 05, 2022 1:00am March 11, 2022 1:00am March 12, 2022 1:04am Start: 03-05-2022 End: 03-12-2022 Ciprofloxacin-Dexamethasone (Ciprodex) 0.3-0.1 % drops,suspension Discontinued 4 DRP OTIC TWICE A DAY 7.5 March 05, 2022 1:00am March 12, 2022 1:04am doxycycline monohydrate 100 mg oral capsule (16 sources) Tetracycline-class Drug Start: 02-01-2023 End: 02-24-2023 take 1 capsule by mouth twice daily Doxycycline Monohydrate 100 mg capsule Discontinued 100 mg PO TWICE A DAY February 01, 2023 1:00am February 24, 2023 8:13pm Start: 02-19-2022 End: 03-01-2022 take 1 capsule by mouth twice daily Doxycycline Hyclate 100 mg capsule Discontinued 100 mg PO TWICE A DAY 20 February 19, 2022 1:00am February 28, 2022 1:00am March 01, 2022 1:05am Start: 10-11-2021 End: 10-21-2021 take 1 tablet by mouth twice daily doxycycline monohydrate 100 mg tablet Indications: Scrotal abscess Take 1 tablet by mouth twice daily for 10 days. 20 tablet 0 10/11/2021 10/21/2021 Active Comment on above: Take 1 tablet by judith twice daily for 10 days. 0.4 ml enoxaparin sodium 100 mg/ml prefilled syringe (12 sources) Low Molecular Weight Heparin Start: 017 End: inject 40 mg by subcutaneous injection once daily Enoxaparin 40 MG/0.4 ML syringe Discontinued 40 mg SQ DAILY December 20, 2016 12:00am April 30, 2019 11:01am glimepiride 2 mg oral tablet (5 sources) Sulfonylurea Start: 024 End: take 1 tablet by mouth twice daily Glimepiride 2 mg tablet Discontinued 2 mg PO TWICE A DAY 180 90 May 20, 2023 12:00am August 17, 2023 12:00am August 18, 2023 12:04am hydrocortisone 10 mg/ml / neomycin 3.5 mg/ml / polymyxin b [id number] unt/ml otic suspension (8 sources) Aminoglycoside Antibacterial, Polymyxin-class Antibacterial, Corticosteroid Start: 023 End: 023 Neomycin-Polymyxin -Hc 3.5-10,000-1 mg/mL-unit/mL-% drops,suspension Discontinued 3 NMA OTIC Q4H 10 February 19, 2022 1:00am February 28, 2022 1:00am March 01, 2022 1:05am apply to (cotton) wick; replace wick every 24 hours Start: 02-19-2022 End: 03-01-2022 Wtqsimro-Srwlcwhdg-Kc Discon tinued 3 DRP OTIC Q4H 10 February 19, 2022 1:00am March 01, 2022 1:05am apply to (cotton) wick; replace wick every 24 hours 3 ml insulin glargine 100 unt/ml pen injector (11 sources) Insulin Analog Start: 02-28-2023 End: 08-19-2023 Insulin Glargine (Lantus Solostar U-100 Insulin) 100 unit/mL (3 mL) insulin pen Discontinued 22 U SC TWICE A DAY May 20, 2023 8:30am August 19, 2023 3:01pm Hold if glucose less than 130 mg/dl 3 ml insulin lispro 100 unt/ml pen injector (12 sources) Insulin Analog Start: 02-28-2023 End: 05-20-2023 Insulin Lispro (Humalog Kwikpen Insulin) 100 unit/mL Insulin Pen Discontinued 0 U SC BEFORE MEALS AND AT BEDTIME 0 February 28, 2023 1:00am May 20, 2023 8:18am Please contact the information source for Protocol details. Start: 02-28-2023 End: 05-20-2023 Insulin Lispro (Humalog Kwik pen Insulin) 100 unit/mL Insulin Pen Discontinued 17 U SC THREE TIMES DAILY BEFORE MEALS February 28, 2023 1:00am May 20, 2023 8:18am Hold if glucose less than 130 mg/dl Start: 02-28-2023 End: 05-20-2023 Insulin Lispro (Humalog Kwik pen Insulin) 100 unit/mL Insulin Pen Discontinued 0 UNIT SC BEFORE MEALS AND AT BEDTIME 0 February 28, 2023 1:00am May 20, 2023 8:18am levoFLOXacin 750 mg oral tablet (6 sources) Quinolone Antimicrobial Start: 02-28-2023 End: 05-15-2023 take 1 tablet by mouth once daily Levofloxacin 750 mg tablet Discontinued 750 mg PO DAILY February 28, 2023 1:00am May 15, 2023 11:36am oxyCODONE hydrochloride 5 mg oral tablet (12 sources) Opioid Agonist Start: 04-29-2021 End: 03-05-2022 take 1 tablet by mouth every six hours as needed for pain Oxycodone 5 mg Tablet Discontinued 5 mg PO EVERY 6 HOURS as needed for pain 06 07April 29, 2021 March 05, 2022 2:31pm Semaglutide (8 sources) Start: 10-23-2023 End: 12-02-2023 Semaglutide 1 mg/dose (4 mg/3 mL) pen injector Discontinued 1 mg SC EVERY WEEK 3 October 23, 2023 11:22am December 02, 2023 8:44am x4 weeks Start: 08-19-2023 End: 10-23-2023 Semaglutide 1 mg/dose (4 mg/ 3 mL) pen injector Discontinued 1 mg SC EVERY WEEK 3 August 19, 2023 2:47pm October 23, 2023 11:22am x4 weeks Semaglutide (4 sources) Start: 06-19-2023 End: 08-19-2023 Semaglutide 0.25 mg or 0.5 mg (2 mg/3 mL) pen injector Discontinued 0.5 mg SC EVERY WEEK 3 June 19, 2023 9:23am August 19, 2023 2:48pm for 4 weeks- to begin 06/27/2023 Semaglutide 0.25 mg or 0.5 mg (2 mg/3 mL) pen injector (4 sources) Start: 05-20-2023 End: 06-19-2023 Semaglutide 0.25 mg or 0.5 mg (2 mg/3 mL) pen injector Discontinued 0.25 mg SC EVERY WEEK 3 May 20, 2023 12:00am June 19, 2023 9:23am for 4 weeks sulfamethoxazole 800 mg / trimethoprim 160 mg oral tablet (16 sources) Dihydrofolate Reductase Inhibitor Antibacterial, Sulfonamide Antimicrobial Start: 08-11-2022 End: 02-24-2023 Sulfamethoxazole-Tri methoprim (Bactrim Ds) 800-160 mg tablet Discontinued 1 {tbl} PO Q12H August 11, 2022 9:17am February 24, 2023 8:13pm Problems Active Problems Problem Classification Problem Date Documented Da te Episodic/Chronic Acquired foot deformities (1 source) Other hammer toe(s) (acquired), left foot; Translations: [Other hammer toe(s) (acquired), left foot] Onset: 07-09-2024 Chronic Administrative/social admission (20 sources) Patient encounter status; Translations: [Dietary counseling and surveillance] Episodic Chronic ulcer of skin (20 sources) Chronic ulcer of foot; Translations: [Non-pressure chronic ulcer of other part of left foot with fat layer exposed] Onset: 07-09-2024 Chronic Diabetes mellitus with complications (20 sources) Type 2 diabetes mellitus; Translations: [Type 2 diabetes mellitus with diabetic polyneuropathy] Onset: 03-22-2024 Chronic Diabetes mellitus without complication (1 source) Type 2 diabetes mellitus without complications; Translations: [Type 2 diabetes mellitus without complications] Onset: 06-23-2024 Chronic Diabetes mellitus without complication (1 source) Prediabetes; Translations: [Prediabetes] Episodic Diseases of white blood cells (2 sources) Leukocytosis; Translations: [Elevated white blood cell count, unspecified] 07-07-2024 Chronic Fever of unknown origin (4 sources) Fever, unspecified; Translations: [Fever, unspecified] Onset: 02-03-2020 Episodic Fluid and electrolyte disorders (2 sources) Lactic acidosis; Translations: [Lactic acidosis] 07-07-2024 Episodic Genitourinary symptoms and ill-defined conditions (6 sources) Increased frequency of urination; Translations: [Frequency of micturition] 03-22-2024 Episodic Headache; including migraine (1 source) Headache; including migraine; Translations: [Headache, unspecified] Onset: 02-03-2020 Infective arthritis and osteomyelitis (except that caused by tuberculosis or sexually transmitted disease) (9 sources) Acute osteomyelitis of phalanx of toe; Translations: [Other acute osteomyelitis, left ankle and foot] Onset: 07-09-2024 02-24-2023 Chronic Inflammatory conditions of male genital organs (1 source) Abscess of scrotum; Translations: [Inflammatory disorders of scrotum] Episodic Malaise and fatigue (12 sources) Other fatigue; Translations: [Malaise and fatigue] Onset: 02-03-2020 06-07-2021 Episodic Other connective tissue disease (2 sources) Pain in right lower limb; Translations: [Pain in right leg] Episodic Other ear and sense organ disorders (8 sources) Acute otitis externa; Translations: [Diffuse otitis externa, left ear] 02-19-2022 Episodic Other gastrointestinal disorders (1 source) Diarrhea, unspecified; Translations: [Diarrhea, unspecified] Onset: 02-03-2020 Episodic Other injuries and conditions due to external causes (1 source) Encounter for examination and observation following other accident; Translations: [Encounter for examination and observation following other accident] Onset: 07-05-2024 Episodic Other lower respiratory disease (1 source) Cough; Translations: [Acute cough] Episodic Other nutritional; endocrine; and metabolic disorders (13 sources) Morbid obesity; Translations: [Morbid (severe) obesity due to excess calories] Chronic Other nutritional; endocrine; and metabolic disorders (7 sources) Body mass index 40+ - severely obese; Translations: [Body mass index (BMI) 50.0-59.9, adult] Chronic Other nutritional; endocrine; and metabolic disorders (2 sources) Morbid (severe) obesity due to excess calories; Translations: [Morbid obesity] Onset: 06-23-2024 05-15-2023 Chronic Other nutritional; endocrine; and metabolic disorders (4 sources) Metabolic syndrome X; Translations: [Metabolic syndrome] 08-19-2023 Chronic Other screening for suspected conditions (not mental disorders or infectious disease) (4 sources) Encounter for screening for malignant neoplasm of colon; Translations: [Special screening for malignant neoplasms of colon] Onset: 10-21-2023 05-15-2023 Episodic Other skin disorders (11 sources) Folliculitis; Translations: [Follicular disorder, unspecified] 06-07-2021 Episodic Other upper respiratory infections (9 sources) Acute pansinusitis; Translations: [Acute pansinusitis, unspecified] Episodic Otitis media and related conditions (8 sources) Acute left otitis media; Translations: [Otitis media, unspecified, left ear] 02-19-2022 Episodic Residual codes; unclassified (4 sources) Medication refused; Translations: [Immunization not carried out because of patient refusal] 03-22-2024 Episodic Residual codes; unclassified (2 sources) Other specified health status; Translations: [Failure of outpatient treatment] 07-07-2024 Episodic Screening and history of mental health and substance abuse codes (12 sources) Ex-tobacco user; Translations: [Personal history of nicotine dependence] 04-27-2021 Episodic Skin and subcutaneous tissue infections (20 sources) Infection of foot; Translations: [Local infection of the skin and subcutaneous tissue, unspecified] Onset: 10-08-2023 Episodic Sprains and strains (17 sources) Injury of thigh; Translations: [Strain of muscle, fascia and tendon of the posterior muscle group at thigh level, right thigh, subsequent encounter] Onset: 05-23-2021 Episodic Superficial injury; contusion (15 sources) Blister of foot with infection; Translations: [Blister (nonthermal), left foot, initial encounter] Episodic Unclassified (8 sources) Encounter for screening for malignant neoplasm of colon; Translations: [Z12.11 - Encounter for screening for malignant neoplasm of colon] Viral infection (12 sources) Disease caused by 2019-nCoV; Translations: [COVID-19] 04-27-2021 Episodic Past or Other Problems Problem Classification Problem Date Documented Da te Episodic/Chronic Other aftercare (1 source) [facility] (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 Normal [facility] Comment on above: Performed By: #### M 100.4001, M100.3000, M100.1999 ####[facility] [address] [place], [address] Culture, Anaerobic Any Sourc ashok 07-14-2024 CUAN UNK UNK CLEARENCE FRAGMENT LEFT THIRD TOE COLLECTED IN OR No growth in 5 days. Normal [facility] Comment on above: Performed By: #### M 100.4001, M100.3000, M100.1999 ####[facility] [address] [place], [address] CUAN UNK UNK BONE CULTURE AMPUTATED LEFT THIRD TOE COLLECTED No growth in 5 days. Normal [facility] Comment on above: Performed By: #### L 501.8820 #### [facility] [address] [place], [address] Culture, Anaerobic Any Sourc ashok 07-13-2024 CUAN Left 3rd toe ulcer #1 Studies have confirmed that Anaerobic Gram Positive Cocci are routinely SUSCEPTABLE to Penicillin and generally susceptible to Beta-lactams and Beta-lactamase inhibitors, Cephalosporins, Carbapenems and Metronidazole. They are showing increased RESISTANCE to Clindamycin Bacteria Spec Anaerobe Cult #2 Clostridium perfringens is generally SUSCEPTIBLE to Penicillin, Metronidazole, and Meropenem. It is showing increasing RESISTANCE to Clindamycin and Tetracycline. Bacteria Spec Anaerobe Cult Clostridium species other than perfringens are generally SUSCEPTIBLE to Piperacillin, Beta-lactams and Beta-lactamase inhibitors, Carbapenems, Metronidazole and Vancomycin. They are generally RESISTANT to Ampicillin, Aminoglycosides, Trimethoprim-sulfameth oxazole, and Clindamycin. Bacteria Spec Anaerobe Cult #3 Prevotella and Porphyromonas species are generally SUSCEPTIBLE to Cefoxitin, Chloramphenicol, and Metronidazole and are usually RESISTANT to Penicillin. Anaerobic cocci Clostridium group Prevotella disiens Beta Lactamase-Reportable Positive Normal [facility] Comment on above: Performed By: #### L 501.8820 #### [facility] [address] [place], [address] Culture, Blood (WB)on 2024 CUB Blood cultures x2, from two different sites No growth in 5 days. Normal [facility] Comment on above: Performed By: #### L 501.080 #### [facility] [address] [place], [address] Basic Metabolic Profile (BMP )on 07-10-2024 BUN Normal 4-19 [facility] Comment on above: Result Comment: Canc elled via OM: Order cancelled - Patient discharged Performed By: #### L 501.080 #### [facility] [address] [place], [address] BUN/CRE Normal 10-20 [facility] Comment on above: Result Comment: Canc elled via OM: Order cancelled - Patient discharged Performed By: #### L 501.080 #### [facility] [address] [place], [address] Calcium Normal 7.6-11.0 [facility] Comment on above: Result Comment: Canc elled via OM: Order cancelled - Patient discharged Performed By: #### L 501.080 #### [facility] [address] [place], [address] CL Normal 98-108 [facility] Comment on above: Result Comment: Canc elled via OM: Order cancelled - Patient discharged Performed By: #### L 501.080 #### [facility] [address] [place], [address] CO2 Normal 21.0-32.0 [facility] Comment on above: Result Comment: Canc elled via OM: Order cancelled - Patient discharged Performed By: #### L 501.080 #### [facility] [address] [place], [address] CREAT,SERUM Normal 0.70-1.20 [facility] Comment on above: Result Comment: Canc elled via OM: Order cancelled - Patient discharged Performed By: #### L 501.080 #### [facility] [address] [place], [address] eGFR Normal >60 [facility] Comment on above: Result Comment: Canc elled via OM: Order cancelled - Patient discharged Performed By: #### L 501.080 #### [facility] [address] [place], [address] GAP Normal 5-15 [facility] Comment on above: Result Comment: Canc elled via OM: Order cancelled - Patient discharged Performed By: #### L 501.080 #### [facility] [address] [place], [address] GLU Normal 70-99 [facility] Comment on above: Result Comment: Canc elled via OM: Order cancelled - Patient discharged Performed By: #### L 501.080 #### [facility] [address] [place], [address] Potassium Normal 3.3-5.1 [facility] Comment on above: Result Comment: Canc elled via OM: Order cancelled - Patient discharged Performed By: #### L 501.080 #### [facility] [address] [place], [address] Basic Metabolic Profile (BMP) Normal 133-145 [facility] Comment on above: Result Comment: Canc elled via OM: Order cancelled - Patient discharged Performed By: #### L 501.080 #### [facility] [address] [place], [address] CBC W/Diff, Automatedon 05-2 Absolute Neut Normal 2.0-7.7 [facility] Comment on above: Result Comment: Canc elled via OM: Order cancelled - Patient discharged Performed By: #### L 501.080 #### [facility] [address] [place], [address] HCT Normal 40-54 [facility] Comment on above: Result Comment: Canc elled via OM: Order cancelled - Patient discharged Performed By: #### L 501.080 #### [facility] [address] [place], [address] HGB Normal 13.0-16.5 [facility] Comment on above: Result Comment: Canc elled via OM: Order cancelled - Patient discharged Performed By: #### L 501.080 #### [facility] [address] [place], [address] MCH Normal 27.0-32.0 [facility] Comment on above: Result Comment: Canc elled via OM: Order cancelled - Patient discharged Performed By: #### L 501.080 #### [facility] [address] [place], [address] MCHC Normal 32-36 [facility] Comment on above: Result Comment: Canc elled via OM: Order cancelled - Patient discharged Performed By: #### L 501.080 #### [facility] [address] [place], [address] MCV Normal 80-94 [facility] Comment on above: Result Comment: Canc elled via OM: Order cancelled - Patient discharged Performed By: #### L 501.080 #### [facility] [address] [place], [address] NEUT% Normal 47-70 [facility] Comment on above: Result Comment: Canc elled via OM: Order cancelled - Patient discharged Performed By: #### L 501.080 #### [facility] [address] [place], [address] PLT Normal 150-450 [facility] Comment on above: Result Comment: Canc elled via OM: Order cancelled - Patient discharged Performed By: #### L 501.080 #### [facility] [address] [place], [address] RBC Normal 4.6-6.2 [facility] Comment on above: Result Comment: Canc elled via OM: Order cancelled - Patient discharged Performed By: #### L 501.080 #### [facility] [address] [place], [address] RDW CV Normal 11.6-14.6 [facility] Comment on above: Result Comment: Canc elled via OM: Order cancelled - Patient discharged Performed By: #### L 501.080 #### [facility] [address] [place], [address] RDW SD Normal 35.1-43.9 [facility] Comment on above: Result Comment: Canc elled via OM: Order cancelled - Patient discharged Performed By: #### L 501.080 #### [facility] [address] [place], [address] WBC Normal 4.4-11.0 [facility] Comment on above: Result Comment: Canc elled via OM: Order cancelled - Patient discharged Performed By: #### L 501.080 #### [facility] [address] [place], [address] Wound Cultureon 07-10-2024 WC Left 3rd toe ulcer Wound Culture Coag Negative Staph Amount Growth Very Rare Streptococcus agalactiae (B) Streptococcus agalactiae (B) Coag Negative Staph: REACTION cefOXitin Susc Islt NEG Doxycycline Islt TESS <=0.5 Clindamycin Islt TESS <=0.12 S Clindamycin.induced Susc Islt NEG Erythromycin Islt TESS <=0.25 S Gentamicin Islt TESS <=0.5 S Linezolid Islt TESS 2 S Oxacillin Susc Islt <=0.25 S Tetracycline Islt TESS <=1 S TMP SMX Islt TESS <=10 S Vancomycin Islt TESS 1 S Streptococcus agalactiae (B): REACTION Ampicillin Islt TESS <=0.25 S cefTRIAXone Islt TESS <=0.12 Clindamycin Islt TESS >=1 R Clindamycin.induced Susc Islt NEG Linezolid Islt TESS <=2 S Vancomycin Islt TESS 0.5 S Normal [facility] Comment on above: Performed By: #### M 100.4001, M100.2000, L8200.1075, M100.3000 ####[facility] [address] [place], [address] Basic Metabolic Profile (BMP )on 07-09-2024 BUN/CRE 12.9 RATIO Normal 10-20 [facility] Comment on above: Performed By: #### L 501.080 #### [facility] [address] [place], [address] Calcium [Mass/Vol] 8.3 mg/dL Normal 7.6-11.0 [facility] Comment on above: Performed By: #### L 501.080 #### [facility] [address] [place], [address] Chloride [Moles/Vol] 108 mmol/L Normal 98-108 [facility] Comment on above: Performed By: #### L 501.080 #### [facility] [address] [place], [address] CO2 [Moles/Vol] 22.2 mmol/L Normal 21.0-32.0 [facility] Comment on above: Performed By: #### L 501.080 #### [facility] [address] [place], [address] Creatinine [Mass/Vol] 0.62 mg/dL Low 0.70-1.20 [facility] Comment on above: Performed By: #### L 501.080 #### [facility] [address] [place], [address] ECRCL 228.82 ml/min Normal 50-250 [facility] Comment on above: Performed By: #### L 501.080 #### [facility] [address] [place], [address] GAP 10 Normal 5-15 [facility] Comment on above: Performed By: #### L 501.080 #### [facility] [address] [place], [address] GFR/1.73 sq M.predicted among non-blacks MDRD (S/P/Bld) [Vol rate/Area] 118 mL/min/{1.73_m2} Normal >60 [facility] Comment on above: Result Comment: mL/m in/1.73m2 CKD-EPI Creatinine Equation (2020) Performed By: #### L 501.080 #### [facility] [address] [place], [address] Glucose [Mass/Vol] 97 mg/dL Normal 70-99 [facility] Comment on above: Performed By: #### L 501.080 #### [facility] [address] [place], [address] Potassium [Moles/Vol] 3.2 mmol/L Low 3.3-5.1 [facility] Comment on above: Performed By: #### L 501.080 #### [facility] [address] [place], [address] Sodium [Moles/Vol] 140 mmol/L Normal 133-145 [facility] Comment on above: Performed By: #### L 501.080 #### [facility] [address] [place], [address] Urea nitrogen [Mass/Vol] 8 mg/dL Normal 4-19 [facility] Comment on above: Performed By: #### L 501.080 #### [facility] [address] [place], [address] Bedside Glucoseon 07-09-2024 FINGERSTICK GLU 105 mg/dL Normal 74-106 [facility] Comment on above: Result Comment: RADHA GEMENT OF PATIENT CARE PER NURSING PROTOCOL Performed By: #### L 501.080 #### [facility] [address] [place], [address] FINGERSTICK GLU 101 mg/dL Normal 74-106 [facility] Comment on above: Result Comment: RADHA GEMENT OF PATIENT CARE PER NURSING PROTOCOL Performed By: #### L 501.080 #### [facility] [address] [place], [address] CBC W/Diff, Automatedon 06-18 ATYPICAL LYMPH 1+ Normal [facility] Comment on above: Performed By: #### L 501.080 #### [facility] [address] [place], [address] Consultation - Infectious Dx on 07-09-2024 Consultation - Infectious Dx [facility] [address] [place] [address] Consultation - Infectious Dx 07/09/24 1146 MR#: [id number] Acct: [id number] Name: HOMER DUMAS Aurelia Rep #: [id number] : 1975 48 From: Maksim Albright MD PCP: Dr. Milla Horner MD Status:ADM IN Location: [place] [id number] Assessment Plan Assessment/Plan (1) Diabetes mellitus with diabetic polyneuropathy: (2) Acute osteomyelitis of toe of left foot: PLAN: Taken to OR 07/08/[address] Benites for distal L 3rd toe amp. Wound cx with staph and GPC. Surg clearance cx pending. On vanc/unasyn. Assuming clearance cx remains neg, plan would be for discharge with one week po doxy 100mg bid and augmentin 875mg bid. If cxs or path show residual infection, would need abx course extended and followup with ID. Ok for discharge home prior to cxs and path being finalized. Will follow, thank you HPI Consult Data Date of Consult: 07/09/24 HPI Narrative Reason for Consultation: osteo HPI Narrative: HOMER DUMAS, is a 48 M with DM neuropathy, presented 07/07 with one week fever, chills, and L lower leg rednes, swelling, and mild pain. He had sprained his R ankle a week prior, came to ED, sent home with keflex. Sx worsened, admitted here on vanc/unasyn for L 3rd toe osteo. Seen by podiatry. MRI showed R anterior tibial rupture. Taken to OR 07/08/[address] Benites for distal L 3rd toe amp. Feeling better today, no further fever, pain controlled, no n/v/d. Full ROS performed and neg except as noted above. 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 Hyperglycemia Cellulitis of right lower extremity Former smoker COVID-19 Morbid obesity Home Medications ???Medication ???Instructions ???Recorded ???Last Taken ???Type alfuzosin 10 mg tablet,extended 10 mg PO DAILY 02/24/23 05/12/24 H istory release 24 hr 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 sensor (FreeStyle #4 ea 05/15/23 Unknown Rx Zay 3 Sensor device) 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,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 ,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 05/15/23 Unknown Rx (FreeStyle Zay 3 Ubly) alcohol swabs (Alcohol Prep Pads) 1 pad topical .PRN #200 ea Unknown Rx blood sugar diagnostic (Contour #100 ea 01/14/24 Unknown Rx Test Strips) multivitamin 1 tab PO QDAY 03/25/24 05/10/24 Hi story semaglutide 2 mg/dose (8 mg/3 mL) 2 mg (0.75 mL) subcut QWEEK #3 mL 06/23/24 Unknown Rx subcutaneous pen injector cephalexin 500 mg capsule 500 mg PO Q6 #40 CAPSULES 07/01/24 Unknown Rx metformin 500 mg tablet 500 mg PO DAILY #90 TABLETS Unknown Rx Allergy/AdvReac Type Severity Reaction Status Date / Time No Known Allergies Allergy Verified 07/07/24 08:59 Family History Father Colon cancer, Onset Age: 40 Diabetes Skin cancer Mother Hypertension Surgical History Hx of amputation of lesser toe History of tonsillectomy Hx of foot surgery History of ankle surgery Social History adopted: No household members: significant other current occupational status: 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 current occupational exposures/hazards: No pets and animals: Yes pets and animals: dog(s) history of recent travel: No sexually active: Yes Smoking Status: Former smoker quit date: 02/18/04 pack-years: 10 Tobacco: How many years used: 10 Smokeless tobacco user: other second hand exposure: No alcohol intake: current alcohol intake frequency: holidays/special occasions only substance use type: does not use well-balanced diet: daily or most days caffeine: Yes eating out: 1-3 times/week during the past year weight has: decreased > 10 lbs frequency: 1-2 times per week duration: 15-30 minutes/day ethan/methodist: Advent seatbelt use: always do you feel safe at home: Yes Physical Exam Const alert, oriented x3 and no apparent distress General Appearance: cooperative HEENT normocephalic and head/scalp atraumatic Eyes PERRL and EOMs intact bilaterally Neck supple and No nodes Resp normal air movement and clear to auscultation bilaterally Cardio regular rate and regular rhythm GI soft to palpation, non-tender and non-distended Extremity General Extremity: edema Skin Skin Narrative: L foot wrapped Neuro CN's II-XII intact bilaterally Lab / Micro Data Attestation: I reviewed the patient's lab results. 07/09/24 06:11 07/09/24 06:11 Labs: Laboratory Resu (more content not included)... Normal [facility] Discharge Instructionon 06-18 Discharge Instruction [facility] [address] [place] [address] Instructions for Home/Discharge Instructions 07/09/24 1354 MR#: [id number] Acct: [id number] Name: HOMER DUMAS Rep #: [id number] : 1975 48 From: Mane Del Rio MD PCP: Dr. Milla Horner MD Status:ADM IN Discharge Instructions Diet Discharge Diet: Carb Control Diet DC O2, CPAP, BIPAP needs Home O2 Discharge instructions: No Dressing / Incision Weight Bearing Status: Partial weight bearing (Avoid weight on the left forefoot. Keep right foot in a cam boot) Dressing / Incision Call your doctor if you observe: Fever of 101 or Higher, Shortness of breath, Dizziness, Fainting spells, Swelling in the ankles, Chest pain and Increased palpitations (irregular heartbeat) Follow Up Care Test Results: Test results from this visit will be discussed in further detail at your follow-up appointment, if applicable. Discharge Plan Admission Admit Date/Time: 07/07/24 10:53 Attending Provider: Mane Del Rio Primary Care Provider: Milla Horner Consulting Providers: Eliu Benites; Maksim Albright Instructions Additional Instructions / Restrictions: Follow-up with primary care doctor in 3 to 5 days, if one of the bone fragments is still with infection then you will need a longer course of antibiotics and to follow-up with infectious disease as an outpatient as well. He will follow-up with Dr. Pantoja on Friday who should be able to monitor the cultures and make adjustments to your antibiotics as indicated. Discharge Orders/Prescriptions Prescriptions: New doxycycline monohydrate 100 mg capsule 100 mg PO BID Qty: 14 0RF amoxicillin-pot clavulanate 875-125 mg tablet 1 tab PO BID Qty: 14 0RF Continued (DME) FreeStyle Zay 3 Ubly Misc See Rx Instructions .Route Qty: 1 0RF Rx Instructions: As directed (DME) FreeStyle Zay 3 Sensor Device See Rx Instructions .Route Qty: 4 12RF Rx Instructions: As directed semaglutide 2 mg/dose (8 mg/3 mL) pen injector 2 mg subcut QWEEK Qty: 3 1RF Rx Instructions: x4 weeks multivitamin Tablet 1 tab PO QDAY alfuzosin 10 mg tablet extended release 24 hr 10 mg PO DAILY (DME) Contour Test Strips Strip See Rx Instructions .Route Qty: 100 1RF Rx Instructions: As directed alcohol swabs [Alcohol Prep Pads] Pads, Medicated 1 pad topical .PRN Qty: 200 0RF metformin 500 mg tablet 500 mg PO DAILY Qty: 90 0RF Discontinued cephalexin 500 mg capsule 500 mg PO Q6 Qty: 40 0RF Referrals / Follow Up: Milla Horner MD [Primary Care Provider] - Within 1 Week Eliu Benites DPM [Med Staff - Active Staff] - 07/13/24 Disposition Disposition (needs filled in before D/C Order can be placed): Home, Self Care 07/09/24 1402 Mane Del Rio MD CC: DPM Dr. Eliu Benites; Dr. Milla Horner MD; Dr. Maksim Albright MD Signed Normal [facility] Gram Stainon 07-09-2024 GS UNK UNK CLEARENCE FRAGMENT LEFT THIRD TOE COLLECTED IN OR Gram Stain No organisms seen [facility] Comment on above: Performed By: #### M 100.4001, M100.3000, M100.2000 ####[facility] [id number] [facility] [place], [address] GS UNK UNK BONE CULTURE AMPUTATED LEFT THIRD TOE COLLECTED Gram Stain No organisms seen Normal [facility] Comment on above: Performed By: #### L 501.8820 #### [facility] [address] [facility] [address] [place], [place], [address] Wound Cultureon 07-09-2024 WC UNK UNK BONE CULTURE AMPUTATED LEFT THIRD TOE COLLECTED No growth aerobically. Normal [facility] Comment on above: Performed By: #### L 501.8820 #### [facility] [address] [place], [address] Basic Metabolic Profile (BMP )on 07-08-2024 BUN/CRE 15.8 RATIO Normal 10-20 [facility] Comment on above: Performed By: #### L 501.8820 #### [facility] [address] [place], [address] Calcium [Mass/Vol] 8.1 mg/dL Normal 7.6-11.0 [facility] Comment on above: Performed By: #### L 501.8820 #### [facility] [address] [place], [address] Chloride [Moles/Vol] 110 mmol/L High 98-108 [facility] Comment on above: Performed By: #### L 501.8820 #### [facility] [address] [place], [address] CO2 [Moles/Vol] 18.7 mmol/L Low 21.0-32.0 [facility] Comment on above: Performed By: #### L 501.8820 #### [facility] [address] [place], [address] Creatinine [Mass/Vol] 0.69 mg/dL Low 0.70-1.20 [facility] Comment on above: Performed By: #### L 501.8820 #### [facility] [address] [place], [address] ECRCL 205.61 ml/min Normal 50-250 [facility] Comment on above: Performed By: #### L 501.8820 #### [facility] [address] [place], [address] GAP 11 Normal 5-15 [facility] Comment on above: Performed By: #### L 501.8520 #### [facility] [address] [place], [address] GFR/1.73 sq M.predicted among non-blacks MDRD (S/P/Bld) [Vol rate/Area] 114 mL/min/{1.73_m2} Normal >60 [facility] Comment on above: Result Comment: mL/m in/1.73m2 CKD-EPI Creatinine Equation (2020) Performed By: #### L 501.8820 #### [facility] [address] [place], [address] Glucose [Mass/Vol] 94 mg/dL Normal 70-99 [facility] Comment on above: Performed By: #### L 501.8820 #### [facility] [address] [place], [address] Potassium [Moles/Vol] 3.7 mmol/L Normal 3.3-5.1 [facility] Comment on above: Result Comment: Hemo lysis present, Results??could be affected. ?? Performed By: #### L 501.8820 #### [facility] [address] [place], [address] Sodium [Moles/Vol] 139 mmol/L Normal 133-145 [facility] Comment on above: Performed By: #### L 501.8820 #### [facility] [address] [place], [address] Urea nitrogen [Mass/Vol] 11 mg/dL Normal 4-19 [facility] Comment on above: Performed By: #### L 501.8820 #### [facility] Laboratory [address] [place], [address] Bedside Glucoseon 07-08-2024 FINGERSTICK GLU 112 mg/dL High 74-106 [facility] Comment on above: Result Comment: RADHA GEMENT OF PATIENT CARE PER NURSING PROTOCOL Performed By: #### L 501.080 ####[facility] [address] [place], [address] FINGERSTICK GLU 86 mg/dL Normal 74-106 [facility] Comment on above: Result Comment: RADHA GEMENT OF PATIENT CARE PER NURSING PROTOCOL Performed By: #### L 501.080 #### [facility] Laboratory [address] [place], [address] FINGERSTICK GLU 114 mg/dL High 74-106 [facility] Comment on above: Result Comment: RADHA GEMENT OF PATIENT CARE PER NURSING PROTOCOL Performed By: #### L 501.080 #### [facility] Laboratory [address] [place], [address] FINGERSTICK GLU 121 mg/dL High 74-106 [facility] Comment on above: Result Comment: RADHA GEMENT OF PATIENT CARE PER NURSING PROTOCOL Performed By: #### L 501.8820 #### [facility] Laboratory [address] [place], [address] CBC W/Diff, Automatedon 05-2 2-2024 Absolute Lymph 1.30 X10 3/uL Normal 0.83-4.51 [facility] Comment on above: Performed By: #### L 501.8820 #### [facility] Laboratory [address] [place], [address] Absolute Neut 5.7 X10 3/uL Normal 2.0-7.7 [facility] Comment on above: Performed By: #### L 501.8820 #### [facility] Laboratory [address] [place], [address] Basophils/100 WBC (Bld) 0.6 % Normal 0-1 [facility] Comment on above: Performed By: #### L 501.8820 #### [facility] Laboratory [address] [place], [address] Eosinophils/100 WBC (Bld) 0.4 % Normal 0-5 [facility] Comment on above: Performed By: #### L 501.8820 #### [facility] Laboratory [address] [place], [address] Erythrocyte distribution width (RBC) [Ratio] 13.9 % Normal 11.6-14.6 [facility] Comment on above: Performed By: #### L 501.8820 #### [facility] Laboratory [address] [place], [address] Hematocrit (Bld) [Volume fraction] 47.3 % Normal 40-54 [facility] Comment on above: Performed By: #### L 501.8820 #### [facility] Laboratory [address] [place], [address] Hemoglobin (Bld) [Mass/Vol] 15.6 g/dL Normal 13.0-16.5 [facility] Comment on above: Performed By: #### L 501.8820 #### [facility] Laboratory [address] [place], [address] IG% 0.800 Normal 0.0-0.9 [facility] Comment on above: Result Comment: IG% - Immature Granulocytes (promyelocytes, myelocytes and metamyelocytes) > 1% indicates that a LEFT SHIFT is Present. Performed By: #### L 501.8820 #### [facility] Laboratory [address] [place], [address] Lymphocytes/100 WBC (Bld) 16.5 % Low 19-41 [facility] Comment on above: Performed By: #### L 501.8820 #### [facility] Laboratory [address] [place], [address] MCH (RBC) [Entitic mass] 28.6 pg Normal 27.0-32.0 [facility] Comment on above: Performed By: #### L 501.8820 #### [facility] Laboratory [address] [place], [address] MCHC (RBC) [Mass/Vol] 33.0 g/dL Normal 32-36 [facility] Comment on above: Performed By: #### L 501.8820 #### [facility] Laboratory [address] [place], [address] MCV (RBC) [Entitic vol] 86.6 fL Normal 80-94 [facility] Comment on above: Performed By: #### L 501.8820 #### [facility] [address] [place], [address] Monocytes/100 WBC (Bld) 8.9 % Normal 0-10 [facility] Comment on above: Performed By: #### L 501.8820 #### [facility] Laboratory [address] [place], [address] Neutrophils/100 WBC (Bld) 72.8 % High 47-70 [facility] Comment on above: Performed By: #### L 501.8820 #### [facility] Laboratory [address] [place], [address] Nucleated RBC (Bld) [#/Vol] 0 10*3/uL Normal 0-5 [facility] Comment on above: Performed By: #### L 501.8820 #### [facility] Laboratory [address] [place], [address] Platelet mean volume (Bld) [Entitic vol] 8.9 fL Normal 6.2-12.0 [facility] Comment on above: Performed By: #### L 501.8820 #### [facility] Laboratory [address] [place], [address] Platelets (Bld) [#/Vol] 153 10*3/uL Normal 150-450 [facility] Comment on above: Performed By: #### L 501.8820 #### [facility] Laboratory [address] [place], [address] RBC (Bld) [#/Vol] 5.46 10*6/uL Normal 4.6-6.2 [place] Comment on above: Performed By: #### L 501.8820 #### [facility] Laboratory [address] [place], [address] RDW SD 44.2 fl High 35.1-43.9 [facility] Comment on above: Performed By: #### L 501.8820 #### [facility] Laboratory [address] [place], [address] WBC (Bld) [#/Vol] 7.9 10*3/uL Normal 4.4-11.0 [facility] Comment on above: Performed By: #### L 501.8820 #### [facility] Laboratory [address] [place], [address] Foot min 3 Viewson Foot min 3 Views [facility] Imaging Services [address] [address] Foot min 3 Views MR#: [id number] Acct: [id number] Name: HOMER DUMAS Rep #: [id number] : 1975 M 48 From: Jah Arboleda MD PCP: Dr. Milla Horner MD Status: ADM IN Study: Foot min 3 Views Date of Exam: 07/08/24 Exam# [id number] Ordering Dr: Eliu Benites DPM EXAM: XR Left Foot Complete, 3 or More Views CLINICAL INDICATION: POST OP TECHNIQUE: Frontal, lateral and oblique views of the left foot. COMPARISON: No relevant prior studies available. FINDINGS: BONES/JOINTS: Moderate degenerative changes of the intertarsal joint. Moderate degenerative changes of the 1st and 2nd metatarsophalangeal joints. Moderate degenerative changes of the ankle joints. No acute fracture. No dislocation. SOFT TISSUES: Soft tissue swelling. No radiopaque foreign body. RAD/Foot min 3 Views IMPRESSION: Degenerative changes as above. Reading Location: [id number] CC: DPM Dr. Eliu Benites; Dr. Milla Hroner MD Credit Compliance Officer: Signed Normal [facility] Gram Stainon 07-08-2024 GS Left 3rd toe ulcer Gram Stain 1+ Gram positive cocci 1+ Red Blood Cells Normal [facility] Comment on above: Performed By: #### M 100.4001, M100.2000, L8200.1075, M100.3000 ####[facility] [address] [place], [address] Lower Ext Joint Only (Routin e)on 07-08-2024 Lower Ext Joint Only (Routine) [facility] Imaging Services [address] [place], [place] [address] Lower Ext Joint Only (Routine) MR#: [id number] Acct: [id number] Name: HOMER DUMAS Rep #: [id number] : 1975 M 48 From: Gato Vasquez MD PCP: Dr. Milla Horner MD Status: ADM IN Study: Lower Ext Joint Only (Routine) Date of Exam: 0 07/08/24 Exam# [id number] Ordering Dr: Eliu Benites DPM PROCEDURE: LOWER EXT JOINT ONLY (ROUTINE) 07/08/2024 REASON FOR EXAM: ANTERIOR TIBAL TENDON INJURY TECHNIQUE: T1, T2, PD, stir, MRI of the right ankle Multiplanar and multisequence images were obtained without IV contrast administration. COMPARISON: COMPARISON : July 01, 2024 FINDINGS: There is a complete tear of the anterior tibial tendon, below the field of view of this exam, with laxity and retraction to the level of the tibiotalar articulation, sagittal image . There is edema and attenuation in the posterior tibial tendon with increased fluid in the tendon sheath, moderate tenosynovitis. There is increased fluid signal in the distal flexor digitorum tendon sheath, mild tenosynovitis. The peroneal tendons appear intact. Bone marrow: There is edema in the distal fibula with a subcortical cyst at the distal aspect measuring 0.8 cm. There is subcortical cyst formation in the posterior medial talar dome. There is no acute fracture identified. There is subcortical cyst formation in the calcaneus at the posterior subtalar joint. There is a edema signal throughout the sinus tarsi with attenuation of the cervical ligament and intermediate and lateral roots of the inferior extensor retinaculum, consistent with sinus tarsi syndrome. There is moderate distal Achilles tendinopathy without tear, with increased fluid in the pre Achilles bursa, with bursitis. The plantar fascia origin appears intact. There is a edema and attenuation in the anterior and posterior talofibular ligaments without laxity, grade 2 sprains. The distal tibiofibular ligaments appear intact. The deltoid ligament complex appears intact. The spring ligament appears intact. There is no significant joint effusion. MRI/Lower Ext Joint Only (Routine) IMPRESSION: There is a complete tear of the anterior tibial tendon, below the field of view of this exam, with laxity and retraction to the level of the tibiotalar articulation, sagittal image 13/24. There is edema and attenuation in the posterior tibial tendon with increased fluid in the tendon sheath, moderate tenosynovitis. There is increased fluid signal in the distal flexor digitorum tendon sheath, mild tenosynovitis. There is edema in the distal fibula with a subcortical cyst at the distal aspect measuring 0.8 cm. There is subcortical cyst formation in the posterior medial talar dome. There is subcortical cyst formation in the calcaneus at the posterior subtalar joint. There is a edema signal throughout the sinus tarsi with attenuation of the cervical ligament and intermediate and lateral roots of the inferior extensor retinaculum, consistent with sinus tarsi syndrome. There is moderate distal Achilles tendinopathy without tear, with increased fluid in the pre Achilles bursa, with bursitis. There is a edema and attenuation in the anterior and posterior talofibular ligaments without laxity, grade 2 sprains. Reading Location: [facility] CC: ARI Benites; Dr. Milla Horner MD Credit Compliance Officer: Signed Normal [facility] Lower Ext/No Jt/w/oon 2024 Lower Ext/No Jt/w/o [facility] Imaging Services [address] [place] [address] [place], [place] [address] Lower Ext/No Jt/w/o MR#: [id number] Acct: [id number] Name: HOMER DUMAS Rep #: [id number] : 1975 M 48 From: Gato Vasquez MD PCP: Dr. Milla Horner MD Status: ADM IN Study: Lower Ext/No Jt/w/o Date of Exam: 07/08/24 Exam# [id number] Ordering Dr: Eliu Benites DPM PROCEDURE: LOWER EXT/NO JT/W/O 07/08/2024 REASON FOR EXAM: OSTEOMYELITIS 3RD TOE, anterior tibial tendon injury TECHNIQUE: MRI of the left forefoot Multiplanar and multisequence images were obtained without IV contrast administration. COMPARISON: COMPARISON : July 07, 2024 x-ray FINDINGS: There is diffuse plantar muscular atrophy. 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 There is increased T2, decreased T1 signal in the distal phalanx of the 3rd digit, which meets the criteria for osteomyelitis, sagittal image . Sesamoids are aligned. The Lisfranc articulation is incompletely visualized. There is no abnormal fluid collection or joint effusion. MRI/Lower Ext/No Jt/w/o IMPRESSION: There is diffuse plantar muscular atrophy. 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 There is increased T2, decreased T1 signal in the distal phalanx of the 3rd digit, which meets the criteria for osteomyelitis, sagittal image . Reading Location: [facility] CC: ARI Benites; Dr. Milla Horner MD Credit Compliance Officer: Signed [facility] MR/POSTOP.[facility] 07-08-2024 MR/POSTOP.[facility] Medical Records Department [address] [place] [address] Anesthesia Postop Eval I 07/08/24 1507 MR#: [id number] Acct: [id number] Name: HOMER DUMAS Rep #: [id number] : 1975 48 From: Telly Schwartz CRNA PCP: Dr. Milla Horner MD Status:ADM IN Y Race: C Location: MS3 [id number] Anesthesia: Postop Eval I Current Vital Signs Temperature: 98.5 F Pulse Rate: 85 Blood Pressure: 113/76 Respiratory Rate: 16 Pulse Ox: 95 Oxygen Delivery Method: Room Air Assessment Airway patent: Yes Spontaneous unlabored respirations: Yes Mental status: Awake and Calm nausea: No Vomiting: No Anesthesia Complication: No Fluid Hydration Crystalloid volume administer (ml): 500 Total IV fluid infused: 500 Progress Note Anesthesia document: Postop Eval 1 completed: Yes 07/08/24 1507 Date Telly Schwartz [employer]ING 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 Cosigner Signature: Date CC: Signed Normal [facility] MR/[id number] 07-08-2024 [facility] Medical Records Department [address] [place] [address] Anesthesia Postop Eval II 07/08/24 1613 MR#: [id number] Acct: [id number] Name: HOMER DUMAS Rep #: [id number] : 1975 48 From: Alexis Mishra MD PCP: Dr. Milla Horner MD Status:ADM IN Y Race: C Location: WV3 IV014-3 Anesthesia Postop Eval I Sum Postop Eval Completion status Anesthesia document: Postop Eval 1 completed: Yes Anesthesia Postop Eval I Summary Anesthesia Postop Eval I Summary: Anesthesia Postop Eval I: Assessment Summary Airway patent Yes 07/08/24 15:07 [employer]ING 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.SOBR Spontaneous unlabored Yes 07/08/24 15:07 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.SOBR respirations Mental status Awake,Calm 07/08/24 15:07 [employer]ING 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.SOBR nausea No 07/08/24 15:07 [employer]ING 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.SOBR Vomiting No 07/08/24 15:07 [employer]ING 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.SOBR Anesthesia Postop Eval I: Fluid Summary Crystalloid volume administer 500 07/08/24 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) Colloids volume administered ( ml) Blood Product volume administered (ml) Total IV fluid infused 500 07/08/24 15:07 [employer]ING 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.SOBR Anesthesia Postop Eval I: Summary Notes Anesthesia Complication No 07/08/24 15:07 [employer]ING 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.SOBR Anesthesia Complication Comment: Post-operative progress note Anesthesia: Postop Eval II Evaluation Mental status: Awake Pain Level: 0 nausea: No Vomiting: No 07/08/24 1613 Date Alexis Scott Signature: Date CC: Signed Normal [facility] Operative Reporton 5 Operative Report [facility] Medical Records Department [address] [place] [address] Operative Report 07/08/24 1459 MR#: [id number] Acct: [id number] Name: HOMER DUMAS Rep #: [id number] : 1975 48 From: Eliu Benites DPM PCP: Dr. Milla Horner MD Status:ADM IN Location: [place] [address] Operative Report (Standard) Operative Information Date of Procedure: 07/08/24 Pre-Operative Diagnosis: Osteomyelitis left 3rd toe Post-Operative Diagnosis: Same Surgery/Procedure Performed: Partial left 3rd toe amputation machine bander and cellophaner helper: No Type of Anesthesia: Local MAC RN Documented Start/Stop Times: Operation Date: 07/08/24 14:15 Case Time Into Pre-Op 07/08/24 13:40 Anesthesia Start 07/08/24 14:15 Into Room 07/08/24 14:15 Out of Pre-Op 07/08/24 14:17 Procedure Start 07/08/24 14:32 Procedure End 07/08/24 14:56 Anesthesia End 07/08/24 15:00 Out of Room 07/08/24 15:00 Into Recovery 07/08/24 15:03 Out of Recovery 07/08/24 15:44 Procedure Start Time: 14:32 Procedure Stop Time: 14:56 Select all DRAINS/GRAFTS/IMPLANTS that apply: None Estimated Blood Loss: < 1 mL Specimen collected: Yes Description of specimen(s) removed: 1. Amputation part of left 3rd toe sent to pathology 2. Bone biopsy of distal phalanx left 3rd toe sent to microbiology 3. Clearance fragment of middle phalanx left 3rd toe sent to pathology and microbiology Description of surgery: Indications: 48 year old gentleman with peripheral neuropathy and diabetes noted to have wound to distal aspect of the left 3rd toe,xrays obtained and reviewed. Also MRI obtained and reviewed as well of his left foot. MRI findings consistent with osteomyelitis to the distal left 3rd toe, toe is red and swollen, the wound has drainage all consistent with infection. Discussed options with him the options, which include but not limited to trying to save the toe, antibiotics, wound care, offloading, and discussed surgical options. Reviewed the possible benefits vs risks. He ultimately elected to proceed with left 3d toe amputation. The procedure was discussed with him, reviewed possible benefits vs risks, goals, expectations and estimated healing time. Risks include but not limited to infection, need for further surgery, pain, bleeding, transfer lesions, blood clot, delayed or nonhealing. The consent form was reviewed with him and he freely signed it. No guarantees were given nor implied. No warranties were given. Also of note right ankle MRI showed anterior tibial tendon rupture, we discussed the options nonsurgical vs surgical for this as well. He would like to proceed with surgical options but this will have to be postponed until infection is cleared left foot. Operative Procedure: He was brought back to the operating room and was placed on the operating room table in the supine position. The patient was secured to operating table with a safety belt around his waist. He received MAC anesthesia per the anesthesia team. The skin was cleansed with 70% Isopropyl alcohol and a left 3rd toe nerve block was completed using a total of 7mL of 0.5% Bupivacaine plain. A well padded left ankle pneumatic tourniquet was applied. The left foot was scrubbed, prepped, and draped in the usual aseptic fashion. Of note he is already on IV antibiotics. Further attention was directed to the left 3rd toe - there was a distal wound to the toe and there was drainage, there is erythema and edema localized to toe as well. The wound probed very close to the distal phalanx of the left 3rd toe. A timeout was performed and the patient was properly identified and surgical plan confirmed. An incision was made around the toe at 3rd toe at the level of the distal interphalangeal joint using a 15 blade. This was made down to bone and in a way a dorsal and plantar flap was made. The toe was amputated at the distal interphalangeal joint and the head of the middle phalanx was resected using a bone cutting forcepts. The bone of the distal phalanx was notd to be soft and eroded, a bone culture was obtained of the distal phalanx and sent to microbiology. The toe was amputated as noted above and amputated part of the toe was sent to pathology. The head of the middle phalanx appeared healthy and viable, was hard and white, and bone culture was obtained from the head of the proximal phalanx using a bone cutting rongeur and sent to microbiology and pathology as clearance fragment after the site was flushed with copious amounts of normal saline and gloves were changed precautionary. The site was again flushed out with copious amounts of normal saline solution. The remaining tissues appeared healing and viable. The skin was reapproximated using 3-0 Prolene. A dressing was applied which consisted of betadine soaked adaptic, 4x4 gauze, kerlix and haily dressing. The pneumatic tourniquet was deflated and t (more content not included)... Normal [facility] Urine Cultureon 07-08-2024 URC Culture exhibits no growth. Normal [facility] Comment on above: Performed By: #### L 501.080 #### [facility] Laboratory [address] [place], [address] Vancomycin, Trough Levelon 0 07-08-2024 VANCO, TROUGH 11.5 ug/mL Normal 5.0-15.0 [facility] Comment on above: Order Comment: Comme nts: Trough to be drawn 30 mins prior to scheduled dose 1530 Result Comment: Ramez mmended goal trough ranges are generally 10-15 mcg/ml for less severe/complicated infections such as cellulitis or UTI and 15-20 mcg/ml for more severe/complicated infections such as bacteremia/sepsis, osteomyelitis, pneumonia or meningitis. Goal trough ranges should take into account indication, patient-specific factors and organism TESS. VANCOMYCIN STANDARED DRUG THERAPY TROUGH LEVEL: 5.0 - 15.0 mg/L VANCOMYCIN HIGH INTENSITY THERAPY TROUGH LEVEL: 15.0 - 20.0 mg/L High Intensity therapy recommended for serious life threatening infections include: - Meningitis -Endocarditis -Pneumonia (Ventilator/Healtcare Associated) -Sepsis PLEASE CONTACT PHARMACY SERVICES (#[id number]) FOR INTERPRETATION OF RESULTS. Performed By: #### L 501.8820 #### [facility] Laboratory [address] [place], [address] 12 Lead EKGon 07-07-2024 12 Lead EKG [facility] Cardiovascular Services [address] [place] [address] 12 Lead EKG 07/07/24 1013 MR#: [id number] Acct: [id number] Name: HOMER DUMAS Rep #: [id number] : 1975 48 From: Karena Alexander MD Attending Dr: Dr. Mane Del Rio MD Status : DIS IN Ordering Dr: Ismael Ling MD Date: 07/07/24 Location: 3 Sex: M C Admitted: 07/07/24 Test Reason : Blood Pressure : */* mmHG Vent. Rate : 119 BPM Atrial Rate : 119 BPM P-R Int : 156 ms QRS Dur : 80 ms QT Int : 292 ms P-R-T Axes : 34 13 9 degrees QTcB Int : 410 ms Sinus tachycardia Otherwise normal ECG Confirmed by MOO LEAL, HEIDY ([id number]), editor farm journal ALLIE SULLIVAN ([id number]) on 07/13/2024 6:39:50 AM Referred By: Confirmed By: HEIDY ALEXANDER MD 07/13/24 0639 Date Karena Alexander MD CC: Dr. Ismael Ling MD; Dr. Milla Horner MD; Dr. Mane Del Rio MD Signed Normal [facility] Absolute lymphocyte countOrd ered By: Ismael Ling on 07-07-2024 Lymphocytes Auto (Unsp spec) [#/Vol] 0.81 10*3/uL Low 0.83-4.51 [facility] Absolute neutrophil countOrd ered By: Ismael Ling on 07-07-2024 Neutrophils (Bld) [#/Vol] 10.6 10*3/uL High 2.0-7.7 [facility] Activated partial thrombopla stin time (aPTT) in platelet poor plasma by coagulation aOrdered By: Ismael Ling on 07-07-2024 aPTT Coag (PPP) [Time] 28.5 s 24.1-36.2 [facility] Anion gap in Serum or Plasma Ordered By: Ismael Ling on 07-07-2024 Anion gap [Moles/Vol] 12 mmol/L 5-15 [facility] Automated lymphocyte count a s percentage of total leukocytesOrdered By: Ismael Ling on 07-07-2024 Lymphocytes/100 WBC Auto (Unsp spec) 6.7 % Low 19-41 [facility] BUN/creatinine ratioOrdered By: Ismael Ling on 07-07-2024 Urea nitrogen/Creatinine [Mass ratio] 21.9 mg/mg High 10-20 [facility] Basophil percentageOrdered B y: Ismael Ling on 07-07-2024 Basophils/100 WBC (Bld) 0.2 % 0-1 [facility] Bedside Glucoseon 07-07-2024 FINGERSTICK GLU 148 mg/dL High 74-106 [facility] Comment on above: Result Comment: RADHA GEMENT OF PATIENT CARE PER NURSING PROTOCOL Performed By: #### L 501.080 #### [facility] Laboratory [address] [facility] [id number] ([phone]) FINGERSTICK GLU 113 mg/dL High 74-106 [facility] Comment on above: Result Comment: RADHA GEMENT OF PATIENT CARE PER NURSING PROTOCOL Performed By: #### L 501.080 #### [facility] Laboratory [address] [place], [address] FINGERSTICK GLU 94 mg/dL Normal 74-106 [facility] Comment on above: Result Comment: RADHA ARIAS OF PATIENT CARE PER NURSING PROTOCOL Performed By: #### L 501.080 #### [facility] Laboratory [address] [place], [address] Bilirubin Test strip Ql (U)O rdered By: Ismael Ling on 07-07-2024 Bilirubin Ql (U) Negative Negative [facility] Bilirubin, totalOrdered By: Ismael Ling on 07-07-2024 Bilirubin [Mass/Vol] 0.85 mg/dL 0.00-1.30 [facility] CBC W/Diff, Automatedon 06-18 Absolute Lymph 0.81 X10 3/uL Low 0.83-4.51 [facility] Comment on above: Performed By: #### L 501.080 #### [facility] Laboratory [address] [place], [address] Absolute Neut 10.6 X10 3/uL High 2.0-7.7 [facility] Comment on above: Performed By: #### L 501.080 #### [facility] Laboratory [address] [place], [address] Basophils/100 WBC (Bld) 0.2 % Normal 0-1 [facility] Comment on above: Performed By: #### L 501.080 #### [facility] Laboratory [address] [place], [address] Eosinophils/100 WBC (Bld) 0.6 % Normal 0-5 [facility] Comment on above: Performed By: #### L 501.080 #### [facility] Laboratory [address] [place], [address] Erythrocyte distribution width (RBC) [Ratio] 13.4 % Normal 11.6-14.6 [facility] Comment on above: Performed By: #### L 501.080 #### [facility] [address] [place], [address] Hematocrit (Bld) [Volume fraction] 47.7 % Normal 40-54 [facility] Comment on above: Performed By: #### L 501.080 #### [facility] [address] [place], [address] Hemoglobin (Bld) [Mass/Vol] 16.3 g/dL Normal 13.0-16.5 [facility] Comment on above: Performed By: #### L 501.080 #### [facility] [address] [place], [address] IG% 0.600 Normal 0.0-0.9 [facility] Comment on above: Result Comment: IG% - Immature Granulocytes (promyelocytes, myelocytes and metamyelocytes) > 1% indicates that a LEFT SHIFT is Present. Performed By: #### L 501.080 #### [facility] [address] [place], [address] Lymphocytes/100 WBC (Bld) 6.7 % Low 19-41 [facility] Comment on above: Performed By: #### L 501.080 #### [facility] [address] [place], [address] MCH (RBC) [Entitic mass] 29.0 pg Normal 27.0-32.0 [facility] Comment on above: Performed By: #### L 501.080 #### [facility] [address] [place] [place], [address] MCHC (RBC) [Mass/Vol] 34.2 g/dL Normal 32-36 [facility] Comment on above: Performed By: #### L 501.080 #### [facility] [address] [place], [address] MCV (RBC) [Entitic vol] 84.7 fL Normal 80-94 [facility] Comment on above: Performed By: #### L 501.080 #### [facility] [address] [place], [address] Monocytes/100 WBC (Bld) 4.5 % Normal 0-10 [facility] Comment on above: Performed By: #### L 501.080 #### [facility] [address] [place], [address] Neutrophils/100 WBC (Bld) 87.4 % High 47-70 [facility] Comment on above: Performed By: #### L 501.080 #### [facility] [address] [place], [address] Nucleated RBC (Bld) [#/Vol] 0 10*3/uL Normal 0-5 [facility] Comment on above: Performed By: #### L 501.080 #### [facility] [address] [place], [address] Platelet mean volume (Bld) [Entitic vol] 9.3 fL Normal 6.2-12.0 [facility] Comment on above: Performed By: #### L 501.080 #### [facility] [address] [place], [address] Platelets (Bld) [#/Vol] 205 10*3/uL Normal 150-450 [facility] Comment on above: Performed By: #### L 501.080 #### [facility] [address] [place], [address] RBC (Bld) [#/Vol] 5.63 10*6/uL Normal 4.6-6.2 [place] Comment on above: Performed By: #### L 501.080 #### [facility] [address] [place], [address] RDW SD 41.7 fl Normal 35.1-43.9 [facility] Comment on above: Performed By: #### L 501.080 #### [facility] [address] [place], [address] WBC (Bld) [#/Vol] 12.1 10*3/uL High 4.4-11.0 [place] Comment on above: Performed By: #### L 501.080 #### [facility] [address] [place], [address] CRPon 07-07-2024 C-REACTIVE PROT 26.60 mg/L High 0.0-3.0 [facility] Comment on above: Performed By: #### L 501.080 #### [facility] [address] [facility] [place], [address] Carbon dioxide, total [Moles /volume] in Central venous bloodOrdered By: Ismael Ling on 07-07-2024 CO2 [Moles/Vol] 25.3 mmol/L 21.0-32.0 [facility] Chest 1 View (Portable)on Chest 1 View (Portable) [facility] Imaging Services [address] [place], [place] [address] Chest 1 View (Portable) MR#: [id number] Acct: [id number] Name: HOMER DUMAS Rep #: [id number] : 1975 M 48 From: Jah Arboleda MD PCP: Dr. Milla Horner MD Status: [facility] ER Study: Chest 1 View (Portable) Date of Exam: 07/07/24 Exam# [id number] Ordering Dr: Ismael Ling MD EXAM: XR Chest, 1 View CLINICAL INDICATION: TACHYCARDIA TECHNIQUE: Frontal view of the chest. COMPARISON: No relevant prior studies available. FINDINGS: LUNGS AND PLEURAL SPACES: Unremarkable. No consolidation. No pneumothorax. HEART: Unremarkable. No cardiomegaly. MEDIASTINUM: Unremarkable. Normal mediastinal contour. BONES/JOINTS: Unremarkable. No acute fracture. RAD/Chest 1 View (Portable) IMPRESSION: No acute cardiopulmonary process. Reading Location: [facility] CC: Dr. Ismael Ling MD; Dr. Milla Horner MD Credit Compliance Officer: Signed Normal [facility] Chloride assayOrdered By: Dejuan Ling on 07-07-2024 Chloride [Moles/Vol] 103 mmol/L 98-108 [facility] Comprehensive Metabolic Prof ilon 07-07-2024 Albumin [Mass/Vol] 4.3 g/dL Normal 3.5-5.0 [facility] Comment on above: Performed By: #### L 501.080 #### [facility] [address] [place], [address] Albumin/Globulin [Mass ratio] 1.4 {ratio} Normal 0.9-2.4 [facility] Comment on above: Performed By: #### L 501.080 #### [facility] [address] [place], [address] ALK PHOS 99 U/L Normal 40-129 [facility] Comment on above: Performed By: #### L 501.080 #### [facility] [address] [place], [address] ALT [Catalytic activity/Vol] 25 U/L Normal <=46 [facility] Comment on above: Performed By: #### L 501.080 #### [facility] [address] [place], [address] AST [Catalytic activity/Vol] 20 U/L Normal <=37 [facility] Comment on above: Performed By: #### L 501.080 #### [facility] [address] [place], [address] Bilirubin [Mass/Vol] 0.85 mg/dL Normal 0.00-1.30 [facility] Comment on above: Performed By: #### L 501.080 #### [facility] [address] [place], [address] BUN/CRE 21.9 RATIO High 10-20 [facility] Comment on above: Performed By: #### L 501.080 #### [facility] [address] [place], [address] Calcium [Mass/Vol] 9.4 mg/dL Normal 7.6-11.0 [facility] Comment on above: Performed By: #### L 501.080 #### [facility] [address] [place], [address] Chloride [Moles/Vol] 103 mmol/L Normal 98-108 [facility] Comment on above: Performed By: #### L 501.080 #### [facility] [address] [place], [address] CO2 [Moles/Vol] 25.3 mmol/L Normal 21.0-32.0 [facility] Comment on above: Performed By: #### L 501.080 #### [facility] [address] [place], [address] Creatinine [Mass/Vol] 0.70 mg/dL Normal 0.70-1.20 [facility] Comment on above: Performed By: #### L 501.080 #### [facility] [address] [place], [address] ECRCL 202.67 ml/min Normal 50-250 [facility] Comment on above: Performed By: #### L 501.080 #### [facility] [address] [place], [address] GAP 12 Normal 5-15 [facility] Comment on above: Performed By: #### L 501.080 #### [facility] [address] [place], [address] GFR/1.73 sq M.predicted among non-blacks MDRD (S/P/Bld) [Vol rate/Area] 113 mL/min/{1.73_m2} Normal >60 [facility] Comment on above: Result Comment: mL/m in/1.73m2 CKD-EPI Creatinine Equation (2020) Performed By: #### L 501.080 #### [facility] [address] [place], [address] Globulin (S) [Mass/Vol] 3.1 g/dL Normal 2.2-4.2 [facility] Comment on above: Performed By: #### L 501.080 #### [facility] [address] [place], [address] Glucose [Mass/Vol] 132 mg/dL High 70-99 [facility] Comment on above: Performed By: #### L 501.080 #### [facility] [address] [place], [address] Potassium [Moles/Vol] 4.7 mmol/L Normal 3.3-5.1 [facility] Comment on above: Performed By: #### L 501.080 #### [facility] [address] [place], [address] Sodium [Moles/Vol] 140 mmol/L Normal 133-145 [facility] Comment on above: Performed By: #### L 501.080 #### [facility] [address] [place], [address] T PROT 7.3 g/dL Normal 5.9-8.4 [facility] Comment on above: Performed By: #### L 501.080 #### [facility] [address] [place], [address] Urea nitrogen [Mass/Vol] 15 mg/dL Normal 4-19 [facility] Comment on above: Performed By: #### L 501.080 #### [facility] [address] [place], [address] Emergency Department Summary on 07-07-2024 Emergency Department Summary [facility] Medical Records Department [address] [place] [address] Emergency Department Summary 07/07/24 MR#: [id number] Acct: [id number] Name: HOMER DUMAS Rep #: [id number] : 1975 48 From: Ismael Ling MD PCP: Dr. Milla Horner MD Status:ADM NAV Location: [place] [id number] HPI History of Present Illness Chief Complaint: Cellulitis Narrative Narrative: 48-year-old male presents with his parents with feelings of shakiness today. He relays history he has type 2 diabetes, and was seen in the emergency department last week for cellulitis of his left lower extremity. He had also sprained his right lower extremity. He is currently taking cephalexin and still has a few days left. While his cellulitis may have improved, he and his mother report that he had elevated temperature at 99 degrees, and he had to turn his car around because he felt very shaky. He denies fever outright but may feel chilled. No nausea or vomiting. No exacerbating or alleviating factors. 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 Hyperglycemia Cellulitis of right lower extremity Former smoker COVID-19 Morbid obesity Home Medications ???Medication ???Instructions ???Recorded ???Last Taken ???Type alfuzosin 10 mg tablet,extended 10 mg PO DAILY 02/24/23 05/12/24 H istory release 24 hr 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 sensor (FreeStyle #4 ea 05/15/23 Unknown Rx Zay 3 Sensor device) 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,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 ,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 05/15/23 Unknown Rx (FreeStyle Zay 3 Ubly) alcohol swabs (Alcohol Prep Pads) 1 pad topical .PRN #200 ea Unknown Rx blood sugar diagnostic (Contour #100 ea 01/14/24 Unknown Rx Test Strips) multivitamin 1 tab PO QDAY 03/25/24 05/10/24 Hi story semaglutide 2 mg/dose (8 mg/3 mL) 2 mg (0.75 mL) subcut QWEEK #3 mL 06/23/24 Unknown Rx subcutaneous pen injector cephalexin 500 mg capsule 500 mg PO Q6 #40 CAPSULES 07/01/24 Unknown Rx metformin 500 mg tablet 500 mg PO DAILY #90 TABLETS Unknown Rx Allergy/AdvReac Type Severity Reaction Status Date / Time No Known Allergies Allergy Verified 07/07/24 08:59 Family History Father Colon cancer, Onset Age: 40 Diabetes Skin cancer Mother Hypertension Surgical History Hx of amputation of lesser toe History of tonsillectomy Hx of foot surgery History of ankle surgery Social History adopted: No household members: significant other current occupational status: 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 current occupational exposures/hazards: No pets and animals: Yes pets and animals: dog(s) history of recent travel: No sexually active: Yes Smoking Status: Former smoker quit date: 02/18/04 pack-years: 10 Tobacco: How many years used: 10 Smokeless tobacco user: other second hand exposure: No alcohol intake: current alcohol intake frequency: holidays/special occasions only substance use type: does not use well-balanced diet: daily or most days caffeine: Yes eating out: 1-3 times/week during the past year weight has: decreased > 10 lbs frequency: 1-2 times per week duration: 15-30 minutes/day ethan/methodist: Advent seatbelt use: always do you feel safe at home: Yes ROS ROS ED ROS Narrative Review of systems positive for slightly elevated temperature of 99 ???F, feelings of shakiness. Being treated for left lower extremity cellulitis/redness, improved in color according to patient and family. No nausea or vomiting. No chest pain. No cough. No difficulty breathing. EXAM Physical Exam Narrative Exam Narrative: Afebrile. Vital signs noted. Nontoxic-appearing. Positive tachycardia, regular. Lungs clear to auscultation bilaterally. Abdomen soft and nontender without guarding or rebound. Positive bowel sounds. Neurological examination nonfocal, nonlateralizing. Inspection of the left lower extremity does show mild erythema on the anterior tibial surface of the left lower extremity, not completely circumferential, no lymphangitic streaking, no palpable cord. No crepitance. Const Vital Signs: 07/07/24 08:59 07/07/24 09:01 07/07/24 09:09 Temperature 98.7 F 98.7 F Temperature Source Oral Oral Pulse Rate 141 H 141 H Respiratory Rate 19 H 19 H Blood Pressure 109/88 H 109/88 H Blood Pressure Mean 95 95 Pulse Ox 100 98 Oxygen Delivery Method Room Air Room (more content not included)... Normal [facility] Eosinophil percentageOrdered By: Ismael Ling on 07-07-2024 Eosinophils/100 WBC (Bld) 0.6 % 0-5 [facility] Erythrocyte Sed Rateon 07-07 SED RATE 22 mm/hr High 0-20 [facility] Comment on above: Performed By: #### L 501.080 #### [facility] [address] [place], [place], [id number] Erythrocyte distribution wid th ratioOrdered By: Tieton Sushil on 07-07-2024 Erythrocyte distribution width (RBC) [Ratio] 13.4 % 11.6-14.6 [facility] Erythrocyte distribution wid th standard deviationOrdered By: [facility] on 07-07-2024 Erythrocyte distribution width (RBC) [Ratio] 41.7 fl 35.1-43.9 [facility] Erythrocyte sedimentation ra teOrdered By: [facility] on 07-07-2024 ESR (Bld) [Velocity] 22 mm/h High 0-20 [facility] Foot min 3 Viewson 5 Foot min 3 Views [facility] Imaging Services [address] [place], [place] [address] Foot min 3 Views MR#: [id number] Acct: [id number] Name: HOMER DUMAS Rep #: [id number] : 1975 M 48 From: Yang Ziegler MD PCP: Dr. Milla Horner MD Status: ADM NAV Study: Foot min 3 Views Date of Exam: 07/07/24 Exam# [id number] Ordering Dr: Eliu Benites DPChris PROCEDURE: FOOT MIN 3 VIEWS 07/07/2024 REASON FOR EXAM: INFECTION 3RD TOE TECHNIQUE: 3 views of the left foot. COMPARISON: Left foot radiographs 02/25/2023 FINDINGS: Patient positioning with overlapping toes limits this evaluation. Postoperative changes from amputation at the mid aspect of the middle phalanx of the 2nd toe. Ossifications at the ankle joint, unchanged. There are advanced degenerative changes, most notably at the 1st metatarsophalangeal joint, similar to prior. Flattening of the 2nd metatarsal head is also unchanged. No focal osteopenia. Plantar heel spur. RAD/Foot min 3 Views IMPRESSION: 1. No focal osteopenia to suggest osteomyelitis, though patient positioning limits evaluation. Consider bone scan or MRI if concern persists. 2. Unchanged appearance in comparison with 02/25/2023 radiographs, to include severe degenerative changes of the foot and ankle. Reading Location: [id number] CC: ARI Benites; Dr. Milla Horner MD Credit Compliance Officer: Signed Normal [facility] Glomerular filtration rate ( GFR) estimation/1.73 sq m using serum, plasma, or whole bOrdered By: Ismael Ling on 07-07-2024 GFR/1.73 sq M.predicted among non-blacks MDRD (S/P/Bld) [Vol rate/Area] 113 mL/min/{1.73_m2} >60 [facility] Comment on above: mL/min/1.73m2 CKD-EP I Creatinine Equation (2020) H AND P Exam - Hospitaliston 07-07-2024 H&P Exam - Hospitalist [facility] Medical Records Department [address] [place] [address] H P Exam - Hospitalist 07/07/24 1558 MR#: [id number] Acct: [id number] Name: HOMER DUMAS Aurelia Rep #: [id number] : 1975 48 From: Mane Del Rio MD PCP: Dr. Milla Horner MD Status:ADM NAV Location: [facility] [id number] [facility] - General General Date of Admission: 07/07/24 HPI Narrative HOMER DUMAS, is a 48 M who presents to the hospital with fever and chills at home. He was seen in the hospital about a week ago for a right sprained ankle after he jumped into a ditch at home and then was found to have a left sided cellulitis so he was sent home on Keflex. He did feel better initially and then progressively got worse today where he had slightly elevated temperature to 99 degrees and had some rigors and chills. He does have a leukocytosis this admission to 12.1 unfortunately no CBC was obtained during his ER visit as that was primarily for his right ankle strain at that time. ESR and CRP were slightly elevated so an x-ray was taken of his left lower extremity that showed a possible osteomyelitis of the fibula which is old but hide so he was on broad antibiotics with the plan to obtain an MRI. 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 Hyperglycemia Cellulitis of right lower extremity Former smoker COVID-19 Morbid obesity Home Medications ???Medication ???Instructions ???Recorded ???Last Taken ???Type alfuzosin 10 mg tablet,extended 10 mg PO DAILY 02/24/23 05/12/24 H istory release 24 hr 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 sensor (FreeStyle #4 ea 05/15/23 Unknown Rx Zay 3 Sensor device) 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,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 ,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 05/15/23 Unknown Rx (FreeStyle Zay 3 Ubly) alcohol swabs (Alcohol Prep Pads) 1 pad topical .PRN #200 ea Unknown Rx blood sugar diagnostic (Contour #100 ea 01/14/24 Unknown Rx Test Strips) multivitamin 1 tab PO QDAY 03/25/24 05/10/24 Hi story semaglutide 2 mg/dose (8 mg/3 mL) 2 mg (0.75 mL) subcut QWEEK #3 mL 06/23/24 Unknown Rx subcutaneous pen injector cephalexin 500 mg capsule 500 mg PO Q6 #40 CAPSULES 07/01/24 Unknown Rx metformin 500 mg tablet 500 mg PO DAILY #90 TABLETS Unknown Rx Allergy/AdvReac Type Severity Reaction Status Date / Time No Known Allergies Allergy Verified 07/07/24 08:59 Family History Father Colon cancer, Onset Age: 40 Diabetes Skin cancer Mother Hypertension Surgical History Hx of amputation of lesser toe History of tonsillectomy Hx of foot surgery History of ankle surgery Social History adopted: No household members: significant other current occupational status: 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 current occupational exposures/hazards: No pets and animals: Yes pets and animals: dog(s) history of recent travel: No sexually active: Yes Smoking Status: Former smoker quit date: 02/18/04 pack-years: 10 Tobacco: How many years used: 10 Smokeless tobacco user: other second hand exposure: No alcohol intake: current alcohol intake frequency: holidays/special occasions only substance use type: does not use well-balanced diet: daily or most days caffeine: Yes eating out: 1-3 times/week during the past year weight has: decreased > 10 lbs frequency: 1-2 times per week duration: 15-30 minutes/day ethan/methodist: Advent seatbelt use: always do you feel safe at home: Yes ROS Constitutional Constitutional: Reports chills and fever(s); Denies fatigue or malaise Eyes Eyes: Denies blurry vision ENT HEENT: Denies headache(s) or nasal discharge Cardiovascular Cardiovascular: Denies chest pain, dyspnea on exertion or syncope Respiratory/Chest Respiratory/Chest: Denies cough, shortness of breath at rest or shortness of breath with exertion Gastrointestinal Gastrointestinal: Denies constipation, diarrhea, nausea or vomiting Genitourinary Genitourinary: Denies dysuria Neurologic Neurologic: Denies focal weakness, numbness or tremor(s) Psychiatric Psychiatric: Denies anxiety or depression Vital Signs Vital Signs Vital Signs: 07/07/24 08:59 07/07/24 09:01 07/07/24 09:09 Temperature 98.7 F 98.7 F Temperature Source Oral Oral Pulse Rate 141 H 141 H Respiratory Rate 19 H 19 H Respiratory Effort Respiratory Depth Respiratory Pattern Blood Pressure 109/88 H 109 (more content not included)... Normal [facility] Hematocrit Auto (Bld) [Volum e fraction]Ordered By: Ismael Ling on 07-07-2024 Hematocrit (Bld) [Volume fraction] 47.7 % 40-54 [facility] Hemoglobin measurementOrdere d By: Ismael Ling on 07-07-2024 Hemoglobin (Bld) [Mass/Vol] 16.3 g/dL 13.0-16.5 [facility] Immature granulocytes/100 WB C Auto (Bld)Ordered By: Ismael Ling on 07-07-2024 Immature granulocytes/100 WBC (Bld) 0.600 % 0.0-0.9 [facility] Comment on above: IG% - Immature Granu locytes (promyelocytes, myelocytes and metamyelocytes) > 1% indicates that a LEFT SHIFT is Present. International normalized rat io (INR) calculationOrdered By: Ismael Ling on 07-07-2024 INR Coag (Bld) [Relative time] 1.1 {INR} [facility] Ketones Test strip Ql (U)Ord ered By: Ismael Ling on 07-07-2024 Ketones Ql (U) Negative Negative [facility] - Chemistry and C hemistry - challengeOrdered By: Ismael Ling on 07-07-2024 AST [Catalytic activity/Vol] 20 U/L <38 [facility] Lactic Acidon 07-07-2024 Lactate [Moles/Vol] 1.3 mmol/L Normal 0.0-2.0 [place] Comment on above: Performed By: #### L 501.8862 #### [facility] [address] [place], [place], [id number] Lactate [Moles/Vol] 2.6 mmol/L Invalid Interpretation Code 0.0-2.0 [facility] Comment on above: Order Comment: Y Result Comment: Crit ical Result(s) Called at: -10:25 by: Malcolm Manley to Siddharth Smith.??Results read back by same. Performed By: #### L 501.080 #### [facility] [address] [place], [address] Lactic acid measurementOrder ed By: Ismael Ling on 07-07-2024 Lactate [Moles/Vol] 2.6 mmol/L High 0.0-2.0 [place] Comment on above: Critical Result(s) C alled at: -10:25 by: Malcolm Manley to Siddharth Smith. Results read back by same. Lower Ext No Joint W/WO Cont on 07-07-2024 Lower Ext No Joint W/WO Cont [facility] Imaging Services [address] [place], [place] [address] Lower Ext No Joint W/WO Cont MR#: [id number] Acct: [id number] Name: HOMER DUMAS Rep #: [id number] : 1975 M 48 From: Daniel Morrison DO PCP: Dr. Milla Horner MD Status: DIS IN Study: Lower Ext No Joint W/WO Cont Date of Exam: Exam# [id number] Ordering Dr: Mane Del Rio MD ADDENDUM by Dr. Daniel Morrison DO on 07/15/24 at 0806 Contrast: 30 mL of Clariscan administered intravenously. Reading [facility] 07/15/24 0807 Date cc: Dr. Milla Horner MD; Dr. aMne Del Rio MD * Signed PROCEDURE: LOWER EXT NO JOINT W/WO CONT 07/07/2024 REASON FOR EXAM: LEFT FIBULA LESION POSS OSTEO TECHNIQUE: MRI of the left tibia/fibula with and without intravenous gadolinium-based contrast. Multiplanar and multisequence images were obtained. COMPARISON: Left tibia/fibula radiographs same day. FINDINGS: Susceptibility artifact in the superficial medial left calf due to a tiny metallic foreign body. Chronic irregularity of the mid left fibular diaphysis most consistent with an old fracture. No edema. No underlying lesion is suspected. No bone marrow edema or erosive/destructive change to suggest osteomyelitis. The tibia is intact. 2.5 x 2.1 cm stir hyperintense and T1 isointense intramuscular lesion involving the mid calf in the left soleus muscle. On plain radiograph there is some faint calcification present. I suspect a benign process such as intramuscular hemangioma or old heterotopic ossification/myositis ossificans. There is mild generalized and symmetric subcutaneous edema of both calves and ankles. No fluid collections to suggest abscess or hematoma or hematoma. FINDINGS: Postcontrast findings included in the above section. MRI/Lower Ext No Joint W/WO Cont IMPRESSION: 1. No osteomyelitis identified of the left tibia/fibula. 2. Mid left fibular abnormality noted on plain radiograph is most consistent with a chronic healed fracture. No underlying lesion is evident. 3. Mild generalized subcutaneous edema bilaterally, without fluid collection. 4. Incidental intramuscular lesion of the left mid calf in the soleus muscle, likely benign process as noted. It is partially calcified based and visible on plain radiograph. Follow-up left tibia/fibula radiographs are recommended in 6-12 months to document stability. Reading Location: [facility] CC: Dr. Milla Horner MD; Dr. Mane Del Rio MD Credit Compliance Officer: Signed Normal [facility] MCV (mean corpuscular volume ) determinationOrdered By: Ismael Ling on 07-07-2024 MCV (RBC) [Entitic vol] 84.7 fL 80-94 [facility] MRSA Wound DNA by PCRon 06-18 MRSA DNA ASSAY Normal Negative [facility] Comment on above: Order Comment: Left 3rd toe ulcer Result Comment: PT D ISCHARGED Performed By: #### M 100.4001, M100.2000, L8200.1075, M100.3000 ####[facility] [id number] [place], [place], [id number] PROBE CHECK Normal [facility] Comment on above: Order Comment: Left 3rd toe ulcer Result Comment: PT D ISCHARGED Performed By: #### M 100.4001, M100.2000, L8200.1075, M100.3000 ####[facility] [address] [place], [address] SA DNA ASSAY Normal Negative [facility] Comment on above: Order Comment: Left 3rd toe ulcer Result Comment: PT D ISCHARGED Performed By: #### M 100.4001, M100.2000, L8200.1075, M100.3000 ####[facility] [address] [place], [address] SPC Normal [facility] Comment on above: Order Comment: Left 3rd toe ulcer Result Comment: PT D ISCHARGED Performed By: #### M 100.4001, M100.2000, L8200.1075, M100.3000 ####[facility] [address] [place], [address] Mean corpuscular hemoglobin (MCH) determinationOrdered By: Ismael Ling on 07-07-2024 MCH (RBC) [Entitic mass] 29.0 pg 27.0-32.0 [facility] Mean corpuscular hemoglobin concentration (MCHC) determinationOrdered By: Ismael Ling on 07-07-2024 MCHC (RBC) [Mass/Vol] 34.2 g/dL 32-36 [facility] Mean platelet volume determi nationOrdered By: Ismael Lign on 07-07-2024 Platelet mean volume (Bld) [Entitic vol] 9.3 fL 6.2-12.0 [facility] Microscopic analysis of urin e for red blood cells (RBC)Ordered By: Ismael Ling on 07-07-2024 Microscopic analysis of urine for red blood cells (RBC) 0 SEEN /hpf 0-5 [facility] Monocyte percentageOrdered B y: Ismael Ling on 07-07-2024 Monocytes/100 WBC (Bld) 4.5 % 0-10 [facility] Mucus LM Ql (Urine sed)Order ed By: Ismael Ling on 07-07-2024 Mucus Ql (Urine sed) 0 SEEN /hpf [facility] Neutrophil percentageOrdered By: Ismael Ling on 07-07-2024 Neutrophils/100 WBC (Bld) 87.4 % High 47-70 [facility] Nitrite Test strip Ql (U)Ord ered By: Ismael Ling on 07-07-2024 Nitrite Ql (U) Negative Negative [facility] Nucleated red blood cell per centageOrdered By: Ismael Ling on 07-07-2024 Nucleated RBC/100 WBC (Bld) [Ratio] 0 % 0-5 [facility] Partial Thromboplast Timeon 07-07-2024 aPTT Coag (Bld) [Time] 28.5 s Normal 24.1-36.2 [facility] Comment on above: Performed By: #### L 501.080 #### [facility] [address] [place], [place], [id number] (134) Platelet countOrdered By: Dejuan Ling on 07-07-2024 Platelets (Bld) [#/Vol] 205 10*3/uL 150-450 [facility] Potassium measurement (mass/ volume)Ordered By: Ismael Ling on 07-07-2024 Potassium (Unsp spec) [Mass/Vol] 4.7 mmol/L 3.3-5.1 [facility] Protein Test strip Ql (U)Ord ered By: Ismael Ling on 07-07-2024 Protein Ql (U) 15 mg/dl High Negative [facility] Prothrombin Time w/INRon INR Coag (PPP) [Relative time] 1.1 {INR} Normal [facility] Comment on above: Performed By: #### L 501.080 #### [facility] [address] [place], [address] PT Coag (PPP) [Time] 14.1 s Normal 11.7-14.9 [facility] Comment on above: Performed By: #### L 501.080 #### [facility] [address] [place], [address] Prothrombin timeOrdered By: Ismael Ling on 07-07-2024 PT Coag (PPP) [Time] 14.1 s 11.7-14.9 [facility] RBC Auto (Bld) [#/Vol]Ordere d By: Ismael Ling on 07-07-2024 RBC (Bld) [#/Vol] 5.63 10*6/uL 4.6-6.2 [place] Serum creatinine measurement (mass/volume)Ordered By: Ismael Ling on 07-07-2024 Creatinine [Mass/Vol] 0.70 mg/dL 0.70-1.20 [facility] Serum globulin measurementOr dered By: Ismael Ling on 07-07-2024 Globulin (S) [Mass/Vol] 3.1 g/dL 2.2-4.2 [facility] Serum glucose measurement (m ass/volume)Ordered By: Ismael Ling on 07-07-2024 Glucose [Mass/Vol] 132 mg/dL High 70-99 [facility] Serum or plasma C reactive p rotein measurement (mass/volume)Ordered By: Ismael Ling on 07-07-2024 CRP [Mass/Vol] 26.60 mg/L High 0.0-3.0 [facility] Serum or plasma alanine snow otransferase (ALT) measurementOrdered By: Ismael Ling on 07-07-2024 ALT [Catalytic activity/Vol] 25 U/L <47 [facility] Serum or plasma albumin germain urement (mass/volume)Ordered By: Ismael Ling on 07-07-2024 Albumin [Mass/Vol] 4.3 g/dL 3.5-5.0 [facility] Serum or plasma albumin/glob ulin mass ratioOrdered By: Ismael Ling on 07-07-2024 Albumin/Globulin [Mass ratio] 1.4 {ratio} 0.9-2.4 [facility] Serum or plasma alkaline padmini sphatase measurementOrdered By: Ismael Ling on 07-07-2024 ALP [Catalytic activity/Vol] 99 U/L 40-129 [facility] Serum or plasma calcium germain urement (mass/volume)Ordered By: Ismael Ling on 07-07-2024 Calcium [Mass/Vol] 9.4 mg/dL 7.6-11.0 [facility] Serum or plasma urea nitroge n measurement (mass/volume)Ordered By: Ismael Ling on 07-07-2024 Urea nitrogen [Mass/Vol] 15 mg/dL 4-19 [facility] Sodium levelOrdered By: Ismael Ling on 07-07-2024 Sodium [Moles/Vol] 140 mmol/L 133-145 [facility] Squamous epithelial cells de tection in urine sediment by light microscopyOrdered By: Ismael Ling on 07-07-2024 Epithelial cells.squamous LM Ql (Urine sed) 0 SEEN /hpf 0-5 [facility] Tibia Fibula 2 Viewson 07-07 Tibia Fibula 2 Views [facility] Imaging Services [address] [place] [address] Tibia Fibula 2 Views MR#: [id number] Acct: [id number] Name: HOMER DUMAS Rep #: [id number] : 1975 M 48 From: Victoriano anne MD PCP: Dr. Milla Horner MD Status: ADM NAV Study: Tibia Fibula 2 Views Date of Exam: 07/07/24 Exam# [id number] Ordering Dr: Ismael Ling MD EXAM: Left tibia and fibula. CLINICAL HISTORY: Pain and swelling. Cellulitis. COMPARISON: No prior study. TECHNIQUE: Four views were obtained. FINDINGS: There is a 6.1 mm x 11.4 mm endosteal expansion of the midshaft of the fibula with cortical thinning. Osteomyelitis or possible mass lesion should be ruled out. Degenerative changes of the talocalcaneal joint as well as the tarsal joints. Diffuse soft tissue swelling. RAD/Tibia Fibula 2 Views IMPRESSION: Abnormal finding in the midportion of the fibula as described. Correlation with a bone scan is recommended. Soft tissue swelling. Degenerative changes of the hindfoot. Reading Location: [facility] CC: Dr. Ismael Ling MD; Dr. Milla Horner MD Credit Compliance Officer: Signed Normal [facility] Total proteinOrdered By: Chaparrita Ling on 07-07-2024 Protein [Mass/Vol] 7.3 g/dL 5.9-8.4 [facility] Urinalysis, Completeon 07-07 BACTERIA 0 SEEN Normal None Seen [facility] Comment on above: Order Comment: CHERYL CTOR TO SPECIFY Performed By: #### L 501.080 #### [facility] [address] [place], [address] EPI,SQUAMOUS 0 SEEN Normal 0-5 [facility] Comment on above: Order Comment: CHERYL CTOR TO SPECIFY Performed By: #### L 501.080 #### [facility] [address] [place], [address] Mucus Ql (Urine sed) 0 SEEN Normal [facility] Comment on above: Order Comment: CHERYL CTOR TO SPECIFY Performed By: #### L 501.080 #### [facility] [address] [place], [address] RBC 0 SEEN Normal 0-5 [facility] Comment on above: Order Comment: CHERYL CTOR TO SPECIFY Performed By: #### L 501.080 #### [facility] [address] [place], [address] WBC 0 SEEN Normal [address] [place] [address] Comment on above: Order Comment: CHERYL CTOR TO SPECIFY Performed By: #### L 501.080 #### [facility] [address] [place], [address] Urine clarityOrdered By: Chaparrita Ling on 07-07-2024 Clarity (U) Clear Clear [facility] Urine color determinationOrd ered By: Ismael Ling on 07-07-2024 Color (U) Yellow Yellow [facility] Urine glucose detectionOrder ed By: Ismael Ling on 07-07-2024 Glucose Ql (U) Normal mg/dl Normal [facility] Urine leukocyte esterase det ection by dipstickOrdered By: Ismael Ling on 07-07-2024 Leukocyte esterase Test strip Ql (U) Negative Negative [facility] Urine pHOrdered By: Ismael saavedra on 07-07-2024 pH (U) 5.0 [pH] 5.0 - 8.0 [facility] Urine sediment bacteria coun t by microscopy (number/high power field)Ordered By: Ismael Ling on 07-07-2024 Bacteria LM.HPF (Urine sed) [#/Area] 0 /[HPF] None Seen [facility] Urine specific gravity measu rementOrdered By: Ismael Ling on 07-07-2024 Specific gravity (U) [Rel density] 1.020 1.002-1.030 [facility] Urine urobilinogen measureme ntOrdered By: Ismael Ling on 07-07-2024 Urobilinogen Ql (U) Normal mg/dl Normal [facility] White blood cell (WBC) count Ordered By: Ismael Ling on 07-07-2024 WBC (Bld) [#/Vol] 12.1 10*3/uL High 4.4-11.0 [place] White blood cell countOrdere d By: Ismael Ling on 07-07-2024 White blood cell count 0 SEEN /hpf 0-5 [facility] Ankle min 3 Viewson 07-02-19 Ankle min 3 Views [facility] Imaging Services [address] [place] [address] Ankle min 3 Views MR#: [id number] Acct: [id number] Name: HOMER DUMAS Rep #: [id number] : 1975 M 48 From: Victoriano anne MD PCP: Dr. Milla Horner MD Status: PRE ER Study: Ankle min 3 Views Date of Exam: 07/01/24 Exam# [id number] Ordering Dr: Ronen Barnard P. PROCEDURE: ANKLE MIN 3 VIEWS 07/01/2024 REASON FOR EXAM: INJURY TECHNIQUE: 3 views of the right ankle COMPARISON: None FINDINGS: Bones: Old avulsion fracture of the medial malleolus. Calcaneal spurs. Joints: Degenerative changes of the tarsal bones. Soft tissues: Soft tissue swelling. Other: RAD/Ankle min 3 Views IMPRESSION: Degenerative changes. Calcaneal spurs. Reading Location: [id number] CC: Dr. Milla Horner MD; ED PHYSICIAN PROVIDER Credit Compliance Officer: Signed Normal [facility] Emergency Department Summary on 07-01-2024 Emergency Department Summary [facility] Medical Records Department [address] [place] [address] Emergency Department Summary 07/01/24 MR#: [id number] Acct: [id number] Name: HOMER DUMAS Rep #: [id number] : 1975 48 From: Ayad Baker DO PCP: Dr. Milla Horner MD Status:DEP ER Location: ED HPI History of Present Illness Chief Complaint: Lower Extremity Injury Informant: patient Narrative Narrative: Patient presents to the emergency room with 2 distinct complaints. First, he went to jump over a ditch and landed injuring his right ankle. States he has had a prior tibialis anterior tendon injury and this feels similar and that he can pull his toes back towards his head as well. He notes swelling over the anterior ankle. He denies any other injuries from the jump. He did not fall to the ground. Second, he notes some redness over the anterior lateral left leg. He notes he is a diabetic. Patient states over the past couple days he has felt feverish at home. He has not had anything to this extent like this in the past. He notes he did have some diabetic foot infections. 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 Hyperglycemia Cellulitis of right lower extremity Former smoker COVID-19 Morbid obesity Home Medications ???Medication ???Instructions ???Recorded ???Last Taken ???Type alfuzosin 10 mg tablet,extended 10 mg PO DAILY 02/24/23 05/12/24 H istory release 24 hr 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 meter,continuous #1 ea 05/15/23 Unknown Rx (FreeStyle Zay 3 Ubly) 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 sensor (FreeStyle #4 ea 05/15/23 Unknown Rx Zay 3 Sensor device) alcohol swabs (Alcohol Prep Pads) 1 pad topical .PRN #200 ea 11/27/ 24 Unknown Rx blood sugar diagnostic (Contour #100 ea 01/14/24 Unknown Rx Test Strips) metformin 500 mg tablet 500 mg PO QDAY #90 tabs 01/14/24 0 05/12/24 Rx multivitamin 1 tab PO QDAY 03/25/24 05/10/24 Hi story semaglutide 2 mg/dose (8 mg/3 mL) 2 mg (0.75 mL) subcut QWEEK #3 mL 06/23/24 Unknown Rx subcutaneous pen injector cephalexin 500 mg capsule 500 mg PO Q6 #40 CAPSULES 07/01/24 Unknown Rx Allergy/AdvReac Type Severity Reaction Status Date / Time No Known Allergies Allergy Verified 07/01/24 15:14 Family History Father Colon cancer, Onset Age: 40 Diabetes Skin cancer Mother Hypertension Surgical History Hx of amputation of lesser toe History of tonsillectomy Hx of foot surgery History of ankle surgery Social History adopted: No household members: significant other current occupational status: 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 current occupational exposures/hazards: No pets and animals: Yes pets and animals: dog(s) history of recent travel: No sexually active: Yes Smoking Status: Former smoker quit date: 02/18/04 pack-years: 10 Tobacco: How many years used: 10 Smokeless tobacco user: other second hand exposure: No alcohol intake: current alcohol intake frequency: holidays/special occasions only substance use type: does not use well-balanced diet: daily or most days caffeine: Yes eating out: 1-3 times/week during the past year weight has: decreased > 10 lbs frequency: 1-2 times per week duration: 15-30 minutes/day ethan/methodist: Advent seatbelt use: always do you feel safe at home: Yes ROS ROS ED Constitutional Constitutional ED: Reports fever(s) and subjective; Denies chills or weight loss Eyes Eyes: Denies change in vision or diplopia ENT ENT ED: Denies ear pain, rhinorrhea or sore throat Cardiovascular Cardiovascular: Denies chest pain, orthopnea, palpitations or racing heartbeat Respiratory/Chest Respiratory/Chest: Denies cough, dyspnea or orthopnea Gastrointestinal Gastrointestinal: Denies abdominal pain, diarrhea, nausea or vomiting Genitourinary Genitourinary ED: Denies dysuria, hematuria or urinary frequency Musculoskeletal Musculoskeletal: Reports other Details: See history of present illness ; Denies arthralgias or myalgias Integumentary Reports rash; Denies abscess Neurologic Neurologic: Denies headache(s) or weakness Psychiatric Psychiatric: Denies anxiety, depression, suicidal ideation or suicidal thoughts Endocrine Endocrinology: Denies polydipsia, polyphagia or polyuria Allergic/Immunologic Allergic/Immunologic ED: Denies mouth swelling, tongue swelling or urticar (more content not included)... Normal [facility] Tibia Fibula 2 Viewson 07-01 Tibia Fibula 2 Views [facility] Imaging Services [address] [place] [address] Tibia Fibula 2 Views MR#: [id number] Acct: [id number] Name: HOMER DUMAS Rep #: [id number] : 1975 M 48 From: Victoriano anne MD PCP: Dr. Milla Horner MD Status: PRE ER Study: Tibia Fibula 2 Views Date of Exam: 07/01/24 Exam# [id number] Ordering Dr: Provider,Ed P. EXAM: Right tibia and fibula. CLINICAL HISTORY: Pain following injury. COMPARISON: None TECHNIQUE: Four views were obtained. FINDINGS: Old avulsion fracture of the medial malleolus. Calcaneal spur. Degenerative changes of the tail 0 cuboid bone. RAD/Tibia Fibula 2 Views IMPRESSION: No acute abnormality is seen. Reading Location: [id number] CC: Dr. Milla Horner MD; ED PHYSICIAN PROVIDER Credit Compliance Officer: Signed Normal [facility] - Hematology and Cell countsOrdered By: Milla Horner on 06-23-2024 HbA1c (Bld) [Mass fraction] 5.2 % 4.2-6.3 [facility] Internal Medicine Office Vis iton 06-22-2024 Internal Medicine Office Visit [facility] [address] [place] [address] [place] [address] OFFICE VISIT Date of Service: 06/23/24 MR#: [id number] Acct: [id number] Name: HOMER DUMAS Rep #: [id number] : 1975 Provider: Dr. Milla hurtado MD Age/Sex: 48/M [place] [facility] [place] Status: Signed Intake Vital Signs 03/22/24 09:08 05/13/24 06:40 06/23/24 10:59 Height 6 ft 3 in 6 ft 3 in 6 ft 3 in Weight: 332 lb BMI 41.5 BP 130/90 H Blood Pressure Location Lt brachial Position Sitting Respiration 16 Pulse 100 Pulse Source Monitor Temp 96.4 F L Temp Source Temporal Pulse Oximetry (%) 97 Oxygen Delivery Method room air Intake Visit Reasons: 3 M FU Chief Complaint: 3m f/u [employer] Required: No Accompanied by: Self Is patient in pain?: No Allergies No Known Allergies Allergy (Verified 06/23/24 10:52) Medications ???Medication ???Instructions ???Recorded ???Confirmed ???Type alfuzosin 10 mg tablet,extended 10 mg PO DAILY 02/24/23 06/23/24 H istory release 24 hr 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 meter,continuous #1 ea 05/15/23 06/23/24 Rx (FreeStyle Zay 3 Ubly) 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 sensor (FreeStyle #4 ea 05/15/23 06/23/24 Rx Zay 3 Sensor device) alcohol swabs (Alcohol Prep Pads) 1 pad topical .PRN #200 ea 06/23/24 Rx blood sugar diagnostic (Contour #100 ea 01/14/24 06/23/24 Rx Test Strips) metformin 500 mg tablet 500 mg PO QDAY #90 tabs 01/14/24 0 06/23/24 Rx multivitamin 1 tab PO QDAY 03/25/24 06/23/24 Hi story semaglutide 2 mg/dose (8 mg/3 mL) 2 mg (0.75 mL) subcut QWEEK #3 mL 06/23/24 06/23/24 Rx subcutaneous pen injector Have you fallen in the past year?: No PFSH Medical History Wears glasses Open wound Diabetes Arthritis Family history of malignant neoplasm of colon in father Acute osteomyelitis of toe of left foot 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 Hyperglycemia Cellulitis of right lower extremity Former smoker COVID-19 Morbid obesity Surgical History Hx of amputation of lesser toe History of tonsillectomy Hx of foot surgery History of ankle surgery Family History Father Colon cancer, Onset Age: 40 Diabetes Skin cancer Mother Hypertension Social History adopted: No household members: significant other current occupational status: 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 current occupational exposures/hazards: No pets and animals: Yes pets and animals: dog(s) history of recent travel: No sexually active: Yes Smoking Status: Former smoker quit date: 02/18/04 pack-years: 10 Tobacco: How many years used: 10 Smokeless tobacco user: other second hand exposure: No alcohol intake: current alcohol intake frequency: holidays/special occasions only substance use type: does not use well-balanced diet: daily or most days caffeine: Yes eating out: 1-3 times/week during the past year weight has: decreased > 10 lbs frequency: 1-2 times per week duration: 15-30 minutes/day ethan/methodist: Advent seatbelt use: always do you feel safe at home: Yes HPI HPI Chief Complaint: 3m f/u Details: HOMER DUMAS, is a 48 M who presents to the office today for a follow up. He is up to date on his routine blood work and screening. He previously declined any immunizations. He doesn't smoke and does need refills. He reports he is eating healthy and staying active with walking a few times per week. He does check his sugars at home and reports they have remained well controlled. He states they are mostly in the 90s-100s. He is taking his medication as prescribed without problems. He does his semaglutide injection every Friday. He does try to monitor his carbohydrate and sugar intake. He is up to date on her diabetic eye exam and does see podiatry, Dr. Benites. The patient has a history of urinary frequency. He feels the medication does help without problems. He denies any significant ongoing problems. He has no questions or concerns at this time. ROS Const Constitutional: Positive for weight change (12 pound weight loss); No body ache, excessive sweating, fatigue, fever(s), frequent falls, headache(s), snoring, weakness, sleep problems or change in appetite Eyes Eyes: No blurry vision, change in vision, eye pain or Light sensitivity ENT ENT: No abnormal hearing, ear or mastoid pain, tinnitus, nasal congestion, headache(s), neck pain or sore throat Resp Respiratory: No cough, shortness of breath, snoring or wheezing Cardio Cardiology: No chest pain at r (more content not included)... Normal [facility] Wound Cultureon 05-15-2024 WC Streptococcus agalactiae (B) Amount Growth 2+ Staphylococcus aureus Staphylococcus aureus Streptococcus agalactiae (B): REACTION Ampicillin Islt TESS <=0.25 S cefTRIAXone Islt TESS <=0.12 Clindamycin Islt TESS >=1 R Clindamycin.induced Susc Islt NEG Linezolid Islt TESS <=2 S Vancomycin Islt TESS 0.5 S Staphylococcus aureus: REACTION cefOXitin Susc Islt NEG Doxycycline Islt TESS <=0.5 Clindamycin Islt TESS <=0.12 S Clindamycin.induced Susc Islt NEG Erythromycin Islt TESS >=8 R Gentamicin Islt TESS <=0.5 S Linezolid Islt TESS 1 S Moxifloxacin Islt TESS <=0.25 S Oxacillin Susc Islt 1 S Tetracycline Islt TESS <=1 S TMP SMX Islt TESS <=10 S Vancomycin Islt TESS 1 S Normal [facility] Comment on above: Performed By: #### L 501.8820 #### [facility] [address] [place], [address] Bedside Glucoseon 05-13-2024 FINGERSTICK GLU 97 mg/dL Normal 74-106 [facility] Comment on above: Result Comment: RADHA ARIAS OF PATIENT CARE PER NURSING PROTOCOL Performed By: #### L 273.080 #### [facility] [address] [place], [address] Colonoscopy Reporton 025 Colonoscopy Report [facility] Medical Records Department [address] [place] [address] Colonoscopy Report MR#: [id number] Acct: [id number] Name: HOMER DUMAS Rep #: [id number] : 1975 48 From: Alessandro Andrea MD PCP: Dr. Milla Horner MD Status:[facility] [place] Patient Name: Homer Dumas Procedure Date: 05/13/2024 7:13 AM Date of : 1975 Age: 48 Procedure: Colonoscopy Indications: Screening in patient at increased risk: Family history of 1st-degree relative with colorectal cancer before age 60 years Providers: Alessandro Andrea MD Medicines: Propofol per Anesthesia Patient Profile: This is a 48 year old male. Refer to note in patient chart for documentation of history and physical. Last Colonoscopy: none. The patient's first colonoscopy is today. Complications: No immediate complications. Estimated blood loss: Minimal. Procedure: Pre-Anesthesia Assessment: - Prior to the procedure, a History and Physical was performed, and patient medications and allergies were reviewed. The patient's tolerance of previous anesthesia was also reviewed. The risks and benefits of the procedure and the sedation options and risks were discussed with the patient. All questions were answered, and informed consent was obtained. Prior Anticoagulants: The patient has taken no anticoagulant or antiplatelet agents. After reviewing the risks and benefits, the patient was deemed in satisfactory condition to undergo the procedure. After I obtained informed consent, the scope was passed under direct vision. Throughout the procedure, the patient's blood pressure, pulse, and oxygen saturations were monitored continuously. The Colonoscope was introduced through the anus and advanced to the cecum, identified by appendiceal orifice and ileocecal valve. The colonoscopy was performed without difficulty. The patient tolerated the procedure well. The quality of the bowel preparation was good. The ileocecal valve, appendiceal orifice, and rectum were photographed. Scope In: 7:31:54 AM Scope Withdrawal Time 0 hours 9 minutes 57 seconds Scope Out: 7:49:28 AM Total Procedure Duration Time 0 hours 17 minutes 34 seconds Findings: The entire examined colon appeared normal on direct and retroflexion views. A small polyp was found in the descending colon. The polyp was removed with a cold snare. Resection and retrieval were complete. Impression: - The entire examined colon is normal on direct and retroflexion views. - No specimens collected. Recommendation: - Await pathology results. - Discharge patient to home. - Resume previous diet. - Continue present medications. - Repeat colonoscopy in 5 years for surveillance. Procedure Code(s): --- Professional --- 68732, Colonoscopy, flexible; with removal of tumor(s), polyp(s), or other lesion(s) by snare technique Diagnosis Code(s): --- Professional --- Z80.0, Family history of malignant neoplasm of digestive organs CPT copyright 2021 [employer]. All rights reserved. The codes documented in this report are preliminary and upon molder sweep review may be revised to meet current compliance requirements. Alessandro Andrea MD 05/13/2024 7:55:43 AM This report has been signed electronically. Number of Addenda: 0 Note Initiated On: 05/13/2024 7:13 AM 05/13/24 0755 Date Alessandro Andrea MD Cosigner Signature: Date (if indicated) CC: Dr. Milla Horner MD; Dr. Alessandro Andrea MD Date Dictated: 05/13/24712 Date Transcribed: Credit Compliance Officer: NELY Signed Normal [facility] Glucose measurement at [facility] deOrdered By: Alessandro Andrea on 05-13-2024 Bedside Glucose (Misc Panel) 97 mg/dL 74-106 [facility] Comment on above: MANAGEMENT OF PATIEN T CARE PER NURSING PROTOCOL Glucose [Mass/Vol] 97 mg/dL 74-106 [facility] Comment on above: MANAGEMENT OF PATIEN T CARE PER NURSING PROTOCOL MR/POSTOP.ANEon 05-13-2024 MR/POSTOP.ANE [facility] Medical Records Department [address] [address] Anesthesia Postop Eval I 05/13/24756 MR#: [id number] Acct: [id number] Name: HOMER DUMAS Aurelia Rep #: [id number] : 1975 48 From: Stalin Wilhelm CRNA PCP: Dr. Milla Horner MD Status:[facility] Y Race: C Location: [place] [address] Anesthesia: Postop Eval I Current Vital Signs Temperature: 97.1 F Pulse Rate: 86 Blood Pressure: 100/68 Respiratory Rate: 16 Pulse Ox: 95 Assessment Airway patent: Yes Spontaneous unlabored respirations: Yes nausea: No Vomiting: No Anesthesia Complication: No Fluid Hydration Crystalloid volume administer (ml): 30 Total IV fluid infused: 30 Progress Note Anesthesia document: Postop Eval 1 completed: Yes 05/13/24756 Date Stalin Wilhelm [employer]ING 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 Cosigner Signature: Date CC: Signed Normal [facility] MR/[id number] 05-13-2024 [facility] Medical Records Department [address] [place] [address] Anesthesia Postop Eval II 05/13/244 MR#: [id number] Acct: [id number] Name: HOMER DUMAS Aurelia Rep #: [id number] : 1975 48 From: Gus Aj MD PCP: Dr. Milla Horner MD Status:[facility] Y Race: C Location: [place] Anesthesia Postop Eval I Sum Postop Eval Completion status Anesthesia document: Postop Eval 1 completed: Yes Anesthesia Postop Eval I Summary Anesthesia Postop Eval I Summary: Anesthesia Postop Eval I: Assessment Summary Airway patent Yes 05/13/24 07:57 [employer]ING 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.TNES Spontaneous unlabored Yes 05/13/24 07:57 [employer]ING 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.TNES respirations Mental status nausea No 05/13/24 07:57 [employer]ING 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.TNES Vomiting No 05/13/24 07:57 [employer]ING 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.TNES Anesthesia Postop Eval I: Fluid Summary Crystalloid volume administer 30 05/13/24 07:57 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.TNES (ml) Colloids volume administered ( ml) Blood Product volume administered (ml) Total IV fluid infused 30 05/13/24 07:57 [employer]ING 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.TNES Anesthesia Postop Eval I: Summary Notes Anesthesia Complication No 05/13/24 07:57 [employer]ING 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.TNES Anesthesia Complication Comment: Post-operative progress note Anesthesia: Postop Eval II Evaluation Mental status: Awake and Calm Pain Level: 0 nausea: No Vomiting: No Complications Anesthesia Complication: No 05/13/242223 Date Gus Aj MD Cosigner Signature: Date CC: Signed Normal [facility] Surgery Specimen Level Ad 05-13-2024 Surgery Specimen Level IV ---- Patient Age/Sex Location Account Attending Physician ---- HOMER DUMAS N 48/M EN [id number] Dr. Alessandro Andrea MD ---- Specimen: [id number] Received: 05/13/24 Status: [place] Num: [id number] Spec Type: COLON BX Subm Dr: Dr. Alessandro Andrea MD HEADER OPERATION: Colonoscopy with polypectomy PRE-OP DIAGNOSIS: Screening TISSUE SUBMITTED: A- Descending colon polyp ---- MICROSCOPIC DIAGNOSIS A. DESCENDING COLON, POLYP, POLYPECTOMY: -TUBULAR ADENOMA. MICROSCOPIC DESCRIPTION Slides are reviewed. GROSS DESCRIPTION A. Received in formalin labeled, Homer Dumas, and designated polyp descending colon, are four ivy tissue fragments aggregating to 0.5 x 0.5 x 0.2 cm. Totally submitted in one cassette. Billie 05/13/2024 CPT:62659 ---- Patient Age/Sex Location Account Attending Physician ---- ALESIAHOMER Aurelia 48/M EN [id number] Dr. Alessandro Andrea MD ---- Signed (signature on file) Dr. Swetha Mason MD 05/18/24 1633 ---- Normal [facility] Comment on above: Performed By: #### P SUIV ####[facility] [address] [facility] [place], [address] Gram Stainon 05-11-2024 Gram Stain No organisms seen Very Rare White Blood Cells No Epithelial cells Normal [facility] Comment on above: Performed By: #### L [id number] #### [facility] [address] [place], [address] Gram stainOrdered By: Stephon Benites on 05-10-2024 Microscopic observation Gram stain Nom (Unsp spec) [facility] Routine wound cultureOrdered By: Eliu Benites on 05-10-2024 Microbial culture, routine Streptococcus agalactiae (B) Abnormal [facility] Wound Culture Streptococcus agalactiae (B) Abnormal [facility] Wound Culture Staphylococcus aureus Abnormal [facility] Laboratory - Hematology and Cell countsOrdered By: Milla Horner on 03-22-2024 HbA1c (Bld) [Mass fraction] 5.3 % 4.2-6.3 [facility] Internal Medicine Office Vis iton 03-11-2024 Internal Medicine Office Visit [facility] [address] [place] [address] [place] [address] OFFICE VISIT Date of Service: 03/22/24 MR#: [id number] Acct: [id number] Name: HOMER DUMAS Rep #: [id number] : 1975 Provider: Dr. Milla hurtado MD Age/Sex: 48/M [place] [facility] [place]: Signed Intake Vital Signs 12/02/23 08:32 03/22/24 09:08 Height 6 ft 3 in 6 ft 3 in Weight: 344 lb 6 oz BMI 43.0 BP 128/78 H Blood Pressure Location Rt brachial Position Sitting Respiration 16 Pulse 86 Pulse Source Monitor Temp 96.9 F L Temp Source Temporal Pulse Oximetry (%) 98 Oxygen Delivery Method room air Intake Visit Reasons: EST CARE-PREV GRAZYNA PT Chief Complaint: 3m f/u [employer]oc Required: No Accompanied by: Self Is patient in pain?: No Allergies No Known Allergies Allergy (Verified 03/22/24 09:11) Medications ???Medication ???Instructions ???Recorded ???Confirmed ???Type alfuzosin 10 mg tablet,extended 10 mg PO DAILY 02/24/23 03/22/24 H istory release 24 hr 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 meter,continuous #1 ea 05/15/23 03/22/24 Rx (FreeStyle Zay 3 Ubly) 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 sensor (FreeStyle #4 ea 05/15/23 03/22/24 Rx Zay 3 Sensor device) alcohol swabs (Alcohol Prep Pads) 1 pad topical .PRN #200 ea 03/22/24 Rx blood sugar diagnostic (Contour #100 ea 01/14/24 03/22/24 Rx Test Strips) metformin 500 mg tablet 500 mg PO QDAY #90 tabs 01/14/24 0 03/22/24 Rx semaglutide 2 mg/dose (8 mg/3 mL) 2 mg (0.75 mL) subcut QWEEK #3 mL 02/10/24 03/22/24 Rx subcutaneous pen injector Have you fallen in the past year?: No PFSH Medical History (Updated 03/22/24 @ 09:[address] Milla Horner MD) Non-pressure chronic ulcer of other part of left foot with fat layer exposed Cellulitis of right lower extremity Acute osteomyelitis of toe of left foot Non-pressure chronic ulcer of other part of left foot with fat layer exposed Hyperglycemia Former smoker COVID-19 Morbid obesity Surgical History History of tonsillectomy Hx of foot surgery History of ankle surgery Family History (Updated 03/22/24 @ 09:[address] Milla Horner MD) Father Colon cancer, Onset Age: 40 Diabetes Skin cancer Mother Hypertension Social History (Updated 03/22/24 @ 09:[address] 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 current occupational exposures/hazards: No pets and animals: Yes pets and animals: dog(s) history of recent travel: No sexually active: Yes Smoking Status: Former smoker quit date: 02/18/04 pack-years: 10 Tobacco: How many years used: 10 Smokeless tobacco user: other second hand exposure: No alcohol intake: current alcohol intake frequency: holidays/special occasions only substance use type: does not use well-balanced diet: daily or most days caffeine: Yes eating out: 1-3 times/week during the past year weight has: decreased > 10 lbs frequency: 1-2 times per week duration: 15-30 minutes/day ethan/methodist: Advent seatbelt use: always do you feel safe at home: Yes HPI HPI Chief Complaint: 3m f/u Details: HOMER DUMAS, is a 48 M who presents to the office today to transition care. He was seeing Grazyna Esquivel DNP and last saw her in November. He is up to date on his routine blood work and is due for some screening. He doesn't want any immunizations. He doesn't smoke and doesn't need any refills. He reports he is eating healthy and staying active with walking a few times per week. The patient was diagnosed with diabetes about 1 year ago. He reports he developed osteomyelitis of his toe from a cut which demonstrated elevated glucose levels. He was initially placed on insulin which was later discontinued. He does check his sugars at home and has provided some readings for review. He is taking his medication as prescribed without problems. He does his semaglutide injection every Friday. He does try to monitor his carbohydrate and sugar intake. He is up to date on her diabetic eye exam and does see podiatry, Dr. Benites. The patient has a history of urinary frequency. He feels the medication does help without problems. He denies any significant ongoing problems. ROS Const Constitutional: Positive for weight change; No body ache, excessive sweating, fatigue, fever(s), frequent falls, headache(s), snoring, weakness, sleep problems or change in appetite Eyes Eyes: No blurry vision, change in vision, eye pain or Light sensitivity ENT ENT: No abnormal hearing, ear or mastoid pain, tinnitus, nasal congestion, headache(s), neck pain or sore throat Resp Respiratory: No cough, shortness of breath, snoring or wheezing Cardio Cardiology: No chest pain at rest, (more content not included)... Normal [facility] Internal Medicine Office Vis beth 12-01-2023 Internal Medicine Office Visit [facility] [place] [address] [place] [address] OFFICE VISIT Date of Service: 12/02/23 MR#: [id number] Acct: [id number] Name: HOMER DUMAS Aurelia Rep #: [id number] : 1975 Provider: JOSEP robles Age/Sex: 48/M [place] [facility] [place] Status: Signed Intake Vital Signs 08/19/23 14:36 12/02/23 08:32 Height 6 ft 3 in 6 ft 3 in Weight: 376 lb 354 lb 8 oz BMI 47.0 44.3 BP 130/82 H 120/70 Blood Pressure Location Lt brachial Lt brachial Position Sitting Sitting Respiration 14 16 Pulse 81 94 Pulse Source Monitor Monitor Temp 98.3 F 97.5 F L Temp Source Temporal Temporal Pulse Oximetry (%) 98 96 Oxygen Delivery Method room air room air Intake Visit Reasons: 3 M FU Chief Complaint: 3m f/u Mfg Assoc Required: No Accompanied by: Self Is patient in pain?: No Allergies No Known Allergies Allergy (Verified 12/02/23 08:29) Medications ???Medication ???Instructions ???Recorded ???Confirmed ???Type alfuzosin 10 mg tablet,extended 10 mg PO DAILY 02/24/23 12/02/23 History release 24 hr 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 meter,continuous #1 ea 05/15/23 12/02/23 Rx (FreeStyle Zay 3 Ubly) 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 sensor (FreeStyle #4 ea 05/15/23 12/02/23 Rx Zay 3 Sensor device) alcohol swabs (Alcohol Prep Pads) 1 pad topical .PRN #200 ea 05/20/23 12/02/23 Rx blood sugar diagnostic (Contour #100 ea 05/20/23 12/02/23 Rx Test Strips) metformin 500 mg tablet 500 mg PO QDAY #90 tabs 12/02/23 12/02/23 Rx semaglutide 2 mg/dose (8 mg/3 mL) 2 mg (0.75 mL) subcut QWEEK #3 mL 12/02/23 12/02/23 Rx subcutaneous pen injector PFSH Medical History Non-pressure chronic ulcer of other part of left foot with fat layer exposed Hyperglycemia Former smoker COVID-19 Morbid obesity Right foot infection Surgical History History of tonsillectomy Hx of foot surgery History of ankle surgery Family History Father Colon cancer Diabetes Skin cancer Mother Hypertension Social History Smoking Status: Never smoker Smokeless tobacco user: chewing tobacco alcohol intake: current alcohol intake frequency: holidays/special occasions only substance use type: does not use frequency: 1-2 times per week HPI HPI Chief Complaint: 3m f/u Details: HOMER DUMAS, is a 48 M who presents to the office today for routine f/u visit. He is due for colon cancer screening. He does not smoke but does use chewing tobacco. He declines influenza vaccine today. He has a history of T2DM. His blood glucose control has improved significantly since April 2023 and he is no longer on insulin. He is monitoring his blood glucose at home. He is tolerating ozempic well without side effects but does notice increase hunger later in the week and inquires on increasing to the next dose. He injects on Saturdays and has increased cravings by friday/. DM: Checks BG once per day. BG have been ranging <120. Current Medications: metformin 500 mg BID, ozempic 1 mg weekly A1c%- 5.5 Diet and exercise habits:walks, monitors diet for carbs and sugar intake Last eye exam: 10/09/2023- no evidence of diabetic retinopathy Last foot exam: follows with podiatry Last microalbumin: 05/15/23 Last monofilament: 05/15/23 Last dental exam: due No vision changes, polyuria, polydipsia, hyper/hypoglycemic episodes, SOB, or chest pain. With the addition of ozempic, patient has also lost 20 lbs in the past 3 months and almost 50 lbs since April 2023. He has no concerns today and is feeling well. ROS Const Constitutional: No body ache, chills, excessive sweating, fatigue, fever(s), frequent falls, headache(s), snoring, weakness or change in appetite Eyes Eyes: No blurry vision, change in vision, eye pain or Light sensitivity ENT ENT: No abnormal hearing, ear or mastoid pain, tinnitus, nasal congestion, headache(s), neck pain or sore throat Resp Respiratory: No cough, shortness of breath, snoring or wheezing Cardio Cardiology: No chest pain at rest, chest pain with exertion, excessive sweating, dyspnea on exertion, lightheadedness, orthopnea or palpitations Gastro GI: No abdominal pain, change in bowel habits, constipation, cramping, diarrhea, nausea/dyspepsia or vomiting Genitourinary Male: No burning urination, painful urination, urinary incontinence or urinary frequency Musc Musculoskeletal: No abnormal gait, joint pain, back pain, limited range of motion, muscle weakness, neck pain or numbness Skin Skin: No dry skin, redness, lesions, itchy eyes, rash or wounds Neuro Neurology: No abnormal gait, abnormal hearing, weakness, frequent (more content not included)... Normal [facility] PSA,Total - Annual Screenon 10-07-2023 PSA,TOT SCREEN 0.70 ng/mL Normal 0.00-4.00 [facility] Comment on above: Result Comment: This test was performed using the TPSA assay method for the [employer] chemistry system. Values obtained with different assay methods cannot be used interchangably. When changing PSA assays in the course of monitoring a patient, additional sequential testing should be carried out to confirm baseline values. Performed By: #### L 501.080 #### [facility] [address] [facility] [place], [address] Culture, Anaerobic Any Sourc ashok 09-22-2023 CUAN 1ST DIGIT #1 Studies have confirmed that Anaerobic Gram Positive Cocci are routinely SUSCEPTABLE to Penicillin and generally susceptible to Beta-lactams and Beta-lactamase inhibitors, Cephalosporins, Carbapenems and Metronidazole. They are showing increased RESISTANCE to Clindamycin Bacteria Spec Anaerobe Cult #2 Studies Have Confirmed That B. Fragilis Group are Routinely Susceptible to: Metronidazole, Piperacillin/Tazobacta m, Amoxicillin/Clavulanic acid, and Ertapenem. They are showing an increased RESISTANCE to Penicillin, Clindamycin and Moxifloxacin. Bacteria Spec Anaerobe Cult Copy of report sent to Infection Control Printer [id number] 09/22/23 [facility]. Anaerobic cocci Bacteroides caccae Beta Lactamase-Reportable Positive Normal [facility] Comment on above: Performed By: #### M 100.2000, M100.3000, M100.4001 ####[facility] [address] [place], [place], [address] Wound Cultureon 09-19-2023 1ST DIGIT Streptococcus agalactiae (B) Amount Growth 2+ Citrobacter freundii Amount Growth Rare Enterococcus faecalis Amount Growth Rare Staphylococcus sciuri Amount Growth 1+ Streptococcus agalactiae (B): REACTION Ampicillin Islt TESS <=0.25 S Penicillin G Islt TESS <=0.06 S cefTRIAXone Islt TESS <=0.12 S Clindamycin Islt TESS >=1 R Clindamycin.induced Susc Islt NEG Linezolid Islt TESS <=2 S Vancomycin Islt TESS 0.5 S Citrobacter freundii: REACTION ceFAZolin Islt TESS >=64 R Cefepime Islt TESS <=0.12 S cefTRIAXone Islt TESS <=0.25 S Ciprofloxacin Islt TESS <=0.25 S Ertapenem Islt TESS <=0.12 S Gentamicin Islt TESS >=16 R Imipenem Islt TESS <=0.25 S levoFLOXacin Islt TESS 0.25 S Tobramycin Islt TESS >=16 R TMP SMX Islt TESS <=20 S Enterococcus faecalis: REACTION Ampicillin Islt TESS R Gentamicin Synergy Susc Islt SYN-S S Linezolid Islt TESS 2 S Streptomycin High Pot Susc Islt SYN-S S Vancomycin Islt TESS 1 S Staphylococcus sciuri: REACTION cefOXitin Susc Islt POS Clindamycin Islt TESS >=4 R Clindamycin.induced Susc Islt NEG Erythromycin Islt TESS >=8 R Gentamicin Islt TESS <=0.5 S Oxacillin Susc Islt >=4 R Tetracycline Islt TESS >=16 R Vancomycin Islt TESS 1 S Normal [facility] Comment on above: Performed By: #### M 100.2000, M100.3000, M100.4001 ####[facility] [address] [place], [address] Gram Stainon 09-17-2023 GS 1ST DIGIT Gram Stain 1+ Red Blood Cells 2+ Gram positive rods 2+ Gram positive cocci Normal [facility] Comment on above: Performed By: #### M 100.2000, M100.3000, M100.4001 ####[facility] [address] [place], [address] CBC W/Diff, Automatedon 08-19 Absolute Lymph 2.86 X10 3/uL Normal 0.83-4.51 [facility] Comment on above: Performed By: #### L 501.080 #### [facility] [address] [place], [address] Absolute Neut 7.6 X10 3/uL Normal 2.0-7.7 [facility] Comment on above: Performed By: #### L 501.080 #### [facility] [address] [place], [address] Basophils/100 WBC (Bld) 0.4 % Normal 0-1 [facility] Comment on above: Performed By: #### L 501.080 #### [facility] [address] [place], [address] Eosinophils/100 WBC (Bld) 1.4 % Normal 0-5 [facility] Comment on above: Performed By: #### L 501.080 #### [facility] [address] [place], [address] Erythrocyte distribution width (RBC) [Ratio] 14.1 % Normal 11.6-14.6 [facility] Comment on above: Performed By: #### L 501.080 #### [facility] [address] [place], [address] Hematocrit (Bld) [Volume fraction] 48.0 % Normal 40-54 [facility] Comment on above: Performed By: #### L 501.080 #### [facility] [address] [place], [address] Hemoglobin (Bld) [Mass/Vol] 16.0 g/dL Normal 13.0-16.5 [facility] Comment on above: Performed By: #### L 501.080 #### [facility] [address] [place], [address] IG% 0.400 Normal 0.0-0.9 [facility] Comment on above: Result Comment: IG% - Immature Granulocytes (promyelocytes, myelocytes and metamyelocytes) > 1% indicates that a LEFT SHIFT is Present. Performed By: #### L 501.080 #### [facility] [address] [place], [address] Lymphocytes/100 WBC (Bld) 25.0 % Normal 19-41 [facility] Comment on above: Performed By: #### L 501.080 #### [facility] [address] [place], [address] MCH (RBC) [Entitic mass] 27.8 pg Normal 27.0-32.0 [facility] Comment on above: Performed By: #### L 501.080 #### [facility] [address] [place], [address] MCHC (RBC) [Mass/Vol] 33.3 g/dL Normal 32-36 [facility] Comment on above: Performed By: #### L 501.080 #### [facility] [address] [place], [address] MCV (RBC) [Entitic vol] 83.5 fL Normal 80-94 [facility] Comment on above: Performed By: #### L 501.080 #### [facility] [address] [place], [address] Monocytes/100 WBC (Bld) 6.5 % Normal 0-10 [facility] Comment on above: Performed By: #### L 501.080 #### [facility] [address] [place], [address] Neutrophils/100 WBC (Bld) 66.3 % Normal 47-70 [facility] Comment on above: Performed By: #### L 501.080 #### [facility] [address] [place], [address] Nucleated RBC (Bld) [#/Vol] 0 10*3/uL Normal 0-5 [facility] Comment on above: Performed By: #### L 501.080 #### [facility] [address] [place], [address] Platelet mean volume (Bld) [Entitic vol] 9.8 fL Normal 6.2-12.0 [facility] Comment on above: Performed By: #### L 501.080 #### [facility] [address] [place], [address] Platelets (Bld) [#/Vol] 198 10*3/uL Normal 150-450 [facility] Comment on above: Performed By: #### L 501.080 #### [facility] [address] [place], [address] RBC (Bld) [#/Vol] 5.75 10*6/uL Normal 4.6-6.2 [place] Comment on above: Performed By: #### L 501.080 #### [facility] [address] [place], [address] RDW SD 41.9 fl Normal 35.1-43.9 [facility] Comment on above: Performed By: #### L 501.080 #### [facility] [address] [place], [address] WBC (Bld) [#/Vol] 11.4 10*3/uL High 4.4-11.0 [facility] Comment on above: Performed By: #### L 501.080 #### [facility] [address] [place], [address] Comprehensive Metabolic Prof [facility] 09-16-2023 Albumin [Mass/Vol] 3.8 g/dL Normal 3.2-5.0 [facility] Comment on above: Performed By: #### L 501.080 #### [facility] [address] [place], [address] Albumin/Globulin [Mass ratio] 1.1 {ratio} Normal 0.9-2.4 [facility] Comment on above: Performed By: #### L 501.080 #### [facility] [address] [place], [address] ALK P 89 U/L Normal 45-117 [facility] Comment on above: Performed By: #### L 501.080 #### [facility] [address] [place], [address] ALT [Catalytic activity/Vol] 34 U/L Normal 16-61 [facility] Comment on above: Performed By: #### L 501.080 #### [facility] [address] [place], [address] AST [Catalytic activity/Vol] 16 U/L Normal 15-37 [facility] Comment on above: Performed By: #### L 501.080 #### [facility] [address] [place], [address] Bilirubin [Mass/Vol] 0.80 mg/dL Normal 0.20-1.00 [facility] Comment on above: Result Comment: For patients on eltrombopag therapy, use of Dimension Leblanc TBIL is not recommended. Performed By: #### L 501.080 #### [facility] [address] [place], [address] BUN/CRE 20.0 RATIO Normal 10-20 [facility] Comment on above: Performed By: #### L 501.080 #### [facility] [address] [place], [address] CA,Total 9.0 mg/dL Normal 8.5-10.1 [facility] Comment on above: Performed By: #### L 501.080 #### [facility] [address] [place], [address] Chloride [Moles/Vol] 105 mmol/L Normal 98-107 [facility] Comment on above: Performed By: #### L 501.080 #### [facility] [address] [place], [address] CO2 [Moles/Vol] 30.0 mmol/L Normal 21.0-32.0 [facility] Comment on above: Performed By: #### L 501.080 #### [facility] [address] [place], [address] Creatinine [Mass/Vol] 0.70 mg/dL Normal 0.70-1.30 [facility] Comment on above: Result Comment: The validity of the calculated GFR GFRAA in patients over 70 years has not been determined. Clinical correlation is essential. Performed By: #### L 501.080 #### [facility] [address] [place], [address] EST GFR - AA 155 mL/min Normal >60 [facility] Comment on above: Result Comment: Afri can Malagasy GFR Calc Performed By: #### L 501.080 #### [facility] [address] [place], [address] GAP 3 Low 5-15 [facility] Comment on above: Performed By: #### L 501.080 #### [facility] [address] [place], [address] GFR/1.73 sq M.predicted among non-blacks MDRD (S/P/Bld) [Vol rate/Area] 128 mL/min/{1.73_m2} Normal >60 [facility] Comment on above: Result Comment: Non- GFR Calc Performed By: #### L 501.080 #### [facility] [address] [place], [address] Globulin (S) [Mass/Vol] 3.5 g/dL Normal 2.2-4.2 [facility] Comment on above: Performed By: #### L 501.080 #### [facility] [address] [place], [address] Glucose [Mass/Vol] 104 mg/dL Normal 74-106 [facility] Comment on above: Result Comment: Fast ing Glucose result from 100 to 125 mg/dL suggests IMPAIRED HOMEOSTASIS per A.D.A. criteria. Performed By: #### L 501.080 #### [facility] [address] [place], [address] Potassium [Moles/Vol] 3.9 mmol/L Normal 3.5-5.1 [facility] Comment on above: Performed By: #### L 501.080 #### [facility] [address] [place], [address] Sodium [Moles/Vol] 138 mmol/L Normal 136-145 [facility] Comment on above: Performed By: #### L 501.080 #### [facility] [address] [place], [address] T PROT 7.3 g/dL Normal 6.4-8.2 [facility] Comment on above: Performed By: #### L 501.080 #### [facility] [address] [place], [address] Urea nitrogen [Mass/Vol] 14 mg/dL Normal 7-18 [facility] Comment on above: Performed By: #### L 501.080 #### [facility] [address] [place], [address] Internal Medicine Office Vis beth 08-19-2023 Internal Medicine Office Visit [facility] [address] [place] [address] [place] [address] OFFICE VISIT Date of Service: 08/19/23 MR#: [id number] Acct: [id number] Name: HOMER DUMAS Aurelia Rep #: [id number] : 1975 Provider: JOSEP robles Age/Sex: 48/M [place] [facility] [place]: Signed Intake Vital Signs 05/15/23 11:41 08/19/23 14:36 Height 6 ft 3 in 6 ft 3 in Weight: 389 lb 376 lb BMI 48.6 47.0 BP 122/82 H 130/82 H Blood Pressure Location Lt brachial Lt brachial Position Sitting Sitting Respiration 16 14 Pulse 103 H 81 Pulse Source Monitor Monitor Temp 97.6 F L 98.3 F Temp Source Temporal Temporal Pulse Oximetry (%) 93 98 Oxygen Delivery Method room air room air Intake Visit Reasons: acute - diabetic chk up [employer] Required: No Is patient in pain?: No Allergies No Known Allergies Allergy (Verified 08/19/23 14:29) Medications ???Medication ???Instructions ???Recorded ???Confirmed ???Type alfuzosin 10 mg tablet,extended 10 mg PO DAILY 02/24/23 08/19/23 History release 24 hr 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 meter,continuous #1 ea 05/15/23 08/19/23 Rx (FreeStyle Zay 3 Ubly) 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 sensor (FreeStyle #4 ea 05/15/23 08/19/23 Rx Zay 3 Sensor device) alcohol swabs (Alcohol Prep Pads) 1 pad topical .PRN #200 ea 05/20/23 08/19/23 Rx blood sugar diagnostic (Contour #100 ea 05/20/23 08/19/23 Rx Test Strips) metformin 500 mg tablet 500 mg PO BID #90 tabs 08/19/23 08/19/23 Rx semaglutide 1 mg/dose (4 mg/3 mL) 1 mg (0.75 mL) subcut QWEEK #3 mL 08/19/23 08/19/23 Rx subcutaneous pen injector Nurse's Note: needing refills on everything. PFSH Medical History Non-pressure chronic ulcer of other part of left foot with fat layer exposed Hyperglycemia Former smoker COVID-19 Morbid obesity Right foot infection Surgical History History of tonsillectomy Hx of foot surgery History of ankle surgery Family History Father Colon cancer Diabetes Skin cancer Mother Hypertension Social History Smoking Status: Never smoker Smokeless tobacco user: chewing tobacco alcohol intake: current alcohol intake frequency: holidays/special occasions only substance use type: does not use frequency: 1-2 times per week HPI HPI Details: HOMER DUMAS, is a 48 M who presents to the office today for f/u appointment for diabetes management. Patient was initially evaluated on 05/15/2023 posthospitalization for osteomyelitis in February 2023. At that time he was diagnosed with type 2 diabetes mellitus with a1c of 8.8%, repeat a1c in office in April was 6.1%. . He was initially placed on lantus, humalog TID with sliding scale. At office f/u medication changes included beginning glimepiride 2 mg BID, metformin 500 mg BID and started ozempic. Humalog was discontinued. Blood glucose trends improved and glimepiride was decreased to once in the am and ozempic was increased to 0.5mg weekly for glucose and weight management. Today, he remains on lantus 22 Units BID, ozempic 0.5 mg weekly, metformin 500 mg BID, and glimepiride 2 mg in the am. He has been out of lantus for 2 weeks and presents with a glucose log for the past two weeks demonstrating fasting blood glucose 90-130, PP consistently <180. Denies hypoglycemic events. Reports he is tolerating medication well and without adverse effects. DM: Checks BG 3 per day. BG have been ranging 90-130 . Current Medications:see above A1c%- 5.3% Diet and exercise habits: walking Last eye exam: due Last foot exam: Follows with Dr. Benites every 8 weeks Last microalbumin:05/15/23 (WNL) Last monofilament: 05/15/23 (decreased) Last dental exam: due No vision changes, polyuria, polydipsia, hyper/hypoglycemic episodes, SOB, or chest pain. ROS Const Constitutional: No body ache, chills, excessive sweating, fatigue, fever(s), frequent falls, headache(s), snoring, weakness, sleep problems or change in appetite Eyes Eyes: No blurry vision, change in vision, eye pain or Light sensitivity ENT ENT: No abnormal hearing, ear or mastoid pain, tinnitus, nasal congestion, headache(s), neck pain or sore throat Resp Respiratory: No cough, shortness of breath, snoring or wheezing Cardio Cardiology: No chest pain at rest, chest pain with exertion, excessive sweating, shortness of breath, dyspnea on exertion, lightheadedness, orthopnea or palpitations Gastro GI: No abdominal pain, change in bowel habits, constipation, cramping, diarrhea, nausea/dyspepsia or vomiting Genitourinary Male: No burning urination, painful urination, urinary incontinence or urinary (more content not included)... Normal [facility] Basophil percentageOrdered B y: Grazyna Esquivel on 05-15-2023 Bilirubin [Mass/Vol] 0.90 mg/dL 0.20-1.00 [facility] Comment on above: For patients on eltr ombopag therapy, use of Dimension Leblanc TBIL is not recommended. Chloride [Moles/Vol] 106 mmol/L 98-107 [facility] Cholesterol [Mass/Vol] 160 mg/dL <200 [facility] Comment on above: <200 mg/dL Desirable 200-240 mg/dL Borderline >240 mg/dL High Risk Glucose [Mass/Vol] 136 mg/dL 74-106 [facility] Comment on above: Fasting Glucose resu lt greater than or equal to 126 mg/dL suggests DIABETES MELLITUS per A.D.A. criteria. Hemoglobin (Bld) [Mass/Vol] 15.9 g/dL 13.0-16.5 [facility] Potassium [Moles/Vol] 4.0 mmol/L 3.5-5.1 [facility] Protein [Mass/Vol] 7.0 g/dL 6.4-8.2 [facility] Sodium [Moles/Vol] 138 mmol/L 136-145 [facility] Triglyceride [Mass/Vol] 105 mg/dL <199 [facility] Comment on above: The drugs N-Acetylcy steine and Metamizole may falsely depress this assay.Serum Triglycerides Reference Interval Normal <150 mg/dL Borderline high 150 - 199 mg/dL High 200 - 499 mg/dL Very High > or = 500 mg/dL WBC (Bld) [#/Vol] 8.7 10*3/uL 4.4-11.0 [facility] Determination of erythrocyte mean corpuscular volume (MCV)Ordered By: Grazyna Esquivel on 05-15-2023 MCV (RBC) [Entitic vol] 85.1 fL 80-94 [facility] Erythrocyte distribution wid th ratioOrdered By: Grazyna Esquivel on 05-15-2023 Erythrocyte distribution width (RBC) [Ratio] 13.6 % 11.6-14.6 [facility] Erythrocyte distribution wid th standard deviationOrdered By: Grazyna Esquivel on 05-15-2023 Erythrocyte distribution width (RBC) [Entitic vol] 42.0 fL 35.1-43.9 [facility] Hematocrit Auto (Bld) [Volum e fraction]Ordered By: Grazyna Esquivel on 05-15-2023 Hematocrit (Bld) [Volume fraction] 48.4 % 40-54 [facility] - Chemistry and C hemistry - challengeOrdered By: Grazyna Esquivel on 05-15-2023 Albumin/Globulin [Mass ratio] 1.1 {ratio} 0.9-2.4 [facility] ALP [Catalytic activity/Vol] 91 U/L 45-117 [facility] ALT [Catalytic activity/Vol] 38 U/L 16-61 [facility] Cholesterol in HDL [Mass/Vol] 32 mg/dL >40 [facility] Comment on above: The drugs N-Acetylcy steine and Metamizole may falsely depress this assay. Reference Range HDL <40 mg/dL Low HDL Cholesterol HDL >or= 60 mg/dL High HDL Cholesterol Cholesterol in LDL [Mass/Vol] 107 mg/dL 0-130 [facility] CO2 [Moles/Vol] 26.0 mmol/L 21.0-32.0 [facility] Globulin (S) [Mass/Vol] 3.4 g/dL 2.2-4.2 [facility] Urea nitrogen/Creatinine [Mass ratio] 19.4 mg/mg 10-20 [facility] - Hematology and Cell countsOrdered By: Grazyna Esquivel on 05-15-2023 MCH (RBC) [Entitic mass] 27.9 pg 27.0-32.0 [facility] MCHC (RBC) [Mass/Vol] 32.9 g/dL 32-36 [facility] Platelet mean volume (Bld) [Entitic vol] 10.0 fL 6.2-12.0 [facility] Platelets (Bld) [#/Vol] 209 10*3/uL 150-450 [facility] No Panel InformationOrdered By: Grazyna Esquivel on 05-15-2023 C-Peptide 5.9 ng/mL 1.1-4.4 [facility] Comment on above: C-Peptide reference interval is for fasting patients.Performed at: [facility] [id number] Director: Junior Castellano PhD, Phone: [phone] Estimated GFR (MDRD) Amer 150 mL/min >60 [facility] Comment on above: GFR Calc Estimated GFR (MDRD) Non-Af Amer 124 mL/min >60 [facility] Comment on above: Non- GFR Calc VLDL Cholesterol 21 mg/dL 5-40 [facility] RBC Auto (Bld) [#/Vol]Ordere d By: Grazyna Esquivel on 05-15-2023 RBC (Bld) [#/Vol] 5.69 10*6/uL 4.6-6.2 [place] Serum or plasma calcium germain urement (mass/volume)Ordered By: Grazyna Esquivel on 05-15-2023 Calcium [Mass/Vol] 8.8 mg/dL 8.5-10.1 [facility] Serum or plasma creatinine m easurement (mass/volume)Ordered By: Grazyna Esquivel on 05-15-2023 Creatinine [Mass/Vol] 0.72 mg/dL 0.70-1.30 [facility] Comment on above: The validity of the calculated GFR & GFRAA in patients over 70 years has not been determined. Clinical correlation is essential. Serum or plasma thyroid stim ulating hormone (TSH) measurement (units/volume)Ordered By: Grazyna Esquivel on 05-15-2023 TSH Qn 0.98 uIU/mL 0.358-3.74 [facility] Serum or plasma urea nitroge n measurement (mass/volume)Ordered By: Grazyna Esquivel on 05-15-2023 Urea nitrogen [Mass/Vol] 14 mg/dL 7-18 [facility] Thin prep Papanicolaou smear with manual screeningOrdered By: Grazyna Esquivel on 05-15-2023 Thin prep Papanicolaou smear with manual screening 3.6 g/dL 3.2-5.0 [facility] Thin prep Papanicolaou smear with manual screening 20 U/L 15-37 [facility] Thin prep Papanicolaou smear with manual screening 6 5-15 [facility] Thin prep Papanicolaou smear with manual screening 8.4 mg/L NO RANGE EST. [facility] Whole blood hemoglobin A1c/t otal hemoglobin ratio (mass fraction)Ordered By: Grazyna Esquivel on 05-15-2023 HbA1c (Bld) [Mass fraction] 6.1 % 3.8-5.6 [facility] Comment on above: Normal < 5.7 % Predi abetic 5.7 - 6.4 % Diabetic >or= 6.5 % Please note range changes. Basophil percentageOrdered B y: Maksim Albright on 03-24-2023 Bilirubin [Mass/Vol] 0.60 mg/dL 0.20-1.00 [facility] Comment on above: For patients on eltr ombopag therapy, use of Dimension Leblanc TBIL is not recommended. Chloride [Moles/Vol] 106 mmol/L 98-107 [facility] Glucose [Mass/Vol] 128 mg/dL 74-106 [facility] Comment on above: Fasting Glucose resu lt greater than or equal to 126 mg/dL suggests DIABETES MELLITUS per A.D.A. criteria. Hemoglobin (Bld) [Mass/Vol] 15.4 g/dL 13.0-16.5 [facility] Potassium [Moles/Vol] 3.7 mmol/L 3.5-5.1 [facility] Protein [Mass/Vol] 6.9 g/dL 6.4-8.2 [facility] Sodium [Moles/Vol] 137 mmol/L 136-145 [facility] WBC (Bld) [#/Vol] 12.0 10*3/uL 4.4-11.0 [place] Determination of erythrocyte mean corpuscular volume (MCV)Ordered By: Maksim Albright on 03-24-2023 MCV (RBC) [Entitic vol] 86.4 fL 80-94 [facility] Direct bilirubinOrdered By: Maksim Albright on 03-24-2023 Bilirubin.direct [Mass/Vol] 0.19 mg/dL 0.00-0.30 [facility] Erythrocyte distribution wid th ratioOrdered By: Maksim Albright on 03-24-2023 Erythrocyte distribution width (RBC) [Ratio] 13.3 % 11.6-14.6 [facility] Erythrocyte distribution wid th standard deviationOrdered By: Maksim Albright on 03-24-2023 Erythrocyte distribution width (RBC) [Entitic vol] 41.7 fL 35.1-43.9 [facility] Erythrocyte sedimentation ra teOrdered By: Maksim Albright on 03-24-2023 ESR (Bld) [Velocity] 19 mm/h 0-20 [facility] Hematocrit Auto (Bld) [Volum e fraction]Ordered By: Maksim Albright on 03-24-2023 Hematocrit (Bld) [Volume fraction] 47.5 % 40-54 [facility] - Chemistry and C hemistry - challengeOrdered By: Maksim Albright on 03-24-2023 ALP [Catalytic activity/Vol] 89 U/L 45-117 [facility] ALT [Catalytic activity/Vol] 31 U/L 16-61 [facility] CO2 [Moles/Vol] 28.0 mmol/L 21.0-32.0 [facility] Globulin (S) [Mass/Vol] 3.3 g/dL 2.2-4.2 [facility] Urea nitrogen/Creatinine [Mass ratio] 15.5 mg/mg 10-20 [facility] - Hematology and Cell countsOrdered By: Maksim Albright on 03-24-2023 MCH (RBC) [Entitic mass] 28.0 pg 27.0-32.0 [facility] MCHC (RBC) [Mass/Vol] 32.4 g/dL 32-36 [facility] Platelet mean volume (Bld) [Entitic vol] 10.0 fL 6.2-12.0 [facility] Platelets (Bld) [#/Vol] 200 10*3/uL 150-450 [facility] No Panel InformationOrdered By: Maksim Albright on 03-24-2023 Estimated GFR (MDRD) Amer 116 mL/min >60 [facility] Comment on above: GFR Calc Estimated GFR (MDRD) Non-Af Amer 96 mL/min >60 [facility] Comment on above: Non- GFR Calc RBC Auto (Bld) [#/Vol]Ordere d By: Maksim Albright on 03-24-2023 RBC (Bld) [#/Vol] 5.50 10*6/uL 4.6-6.2 [place] Serum or plasma calcium germain urement (mass/volume)Ordered By: Maksim Albright on 03-24-2023 Calcium [Mass/Vol] 8.8 mg/dL 8.5-10.1 [facility] Serum or plasma creatinine m easurement (mass/volume)Ordered By: Maksim Albright on 03-24-2023 Creatinine [Mass/Vol] 0.90 mg/dL 0.70-1.30 [facility] Comment on above: The validity of the calculated GFR & GFRAA in patients over 70 years has not been determined. Clinical correlation is essential. Serum or plasma urea nitroge n measurement (mass/volume)Ordered By: Maksim Albright on 03-24-2023 Urea nitrogen [Mass/Vol] 14 mg/dL 7-18 [facility] Thin prep Papanicolaou smear with manual screeningOrdered By: Maksim Albright on 03-24-2023 Thin prep Papanicolaou smear with manual screening 3.6 g/dL 3.2-5.0 [facility] Thin prep Papanicolaou smear with manual screening 15 U/L 15-37 [facility] Thin prep Papanicolaou smear with manual screening 3 5-15 [facility] Glucose Glucometer (BldC) [M ass/Vol]Ordered By: Eliu Benites on 02-28-2023 Glucose [Mass/Vol] 246 mg/dL 74-106 [facility] Comment on above: MANAGEMENT OF PATIEN T CARE PER NURSING PROTOCOL Serum or plasma vancomycin m easurement (mass/volume)Ordered By: Eliu Benites on 02-28-2023 Vancomycin [Mass/Vol] 8.0 ug/mL 0.0-15.0 [facility] Comment on above: VANCOMYCIN STANDARD DRUG THERAPY: CRITICAL VALUE IS > 15.0 mg/L VANCOMYCIN HIGH INTENSITY THERAPY: CRITICAL VALUE IS > 20.0 mg/L PLEASE CONTACT PHARMACY SERVICES (#[id number]) FOR INTERPRETATIONOF RESULTS. THIS RESULT DOES NOT REPRESENT A PEAK OR TROUGHLEVEL FOR THIS DRUG. Absolute lymphocyte countOrd ered By: Eliu Benites on 02-27-2023 Lymphocytes Auto (Unsp spec) [#/Vol] 2.76 10*3/uL 0.83-4.51 [facility] Basophil percentageOrdered B y: Eliu Benites on 02-27-2023 Basophils/100 WBC (Bld) 0.8 % 0-1 [facility] Bilirubin [Mass/Vol] 0.70 mg/dL 0.20-1.00 [facility] Comment on above: For patients on eltr ombopag therapy, use of Dimension Leblanc TBIL is not recommended. Chloride [Moles/Vol] 106 mmol/L 98-107 [facility] Eosinophils/100 WBC (Bld) 2.7 % 0-5 [facility] Glucose [Mass/Vol] 236 mg/dL 74-106 [facility] Comment on above: Glucose result great er than or equal to 200 mg/dLsuggests DIABETES MELLITUS per A.D.A. criteria. Neutrophils (Bld) [#/Vol] 4.6 10*3/uL 2.0-7.7 [facility] Neutrophils/100 WBC (Bld) 54.9 % 47-70 [facility] Potassium [Moles/Vol] 3.9 mmol/L 3.5-5.1 [facility] Protein [Mass/Vol] 6.3 g/dL 6.4-8.2 [facility] Sodium [Moles/Vol] 137 mmol/L 136-145 [facility] WBC (Bld) [#/Vol] 8.4 10*3/uL 4.4-11.0 [facility] Blood erythrocytes count (nu mber/volume)Ordered By: Eliu Benites on 02-27-2023 RBC (Bld) [#/Vol] 5.37 10*6/uL 4.6-6.2 [place] Blood hemoglobin measurement (mass/volume)Ordered By: Eliu Benites on 02-27-2023 Hemoglobin (Bld) [Mass/Vol] 15.2 g/dL 13.0-16.5 [facility] Blood lymphocytes/100 leukoc ytesOrdered By: Eliu Benites on 02-27-2023 Lymphocytes/100 WBC (Bld) 33.0 % 19-41 [facility] Blood monocytes/100 leukocyt esOrdered By: Eliu Benites on 02-27-2023 Monocytes/100 WBC (Bld) 8.2 % 0-10 [facility] Blood platelet mean volumeOr dered By: Eliu Benites on 02-27-2023 Platelet mean volume (Bld) [Entitic vol] 9.6 fL 6.2-12.0 [facility] Determination of erythrocyte mean corpuscular volume (MCV)Ordered By: Eliu Benites on 02-27-2023 MCV (RBC) [Entitic vol] 84.7 fL 80-94 [facility] Hematocrit Auto (Bld) [Volum e fraction]Ordered By: Eliu Benites on 02-27-2023 Hematocrit (Bld) [Volume fraction] 45.5 % 40-54 [facility] - Chemistry and C hemistry - challengeOrdered By: Eliu Benites on 02-27-2023 ALP [Catalytic activity/Vol] 90 U/L 45-117 [facility] ALT [Catalytic activity/Vol] 29 U/L 16-61 [facility] CO2 [Moles/Vol] 25.0 mmol/L 21.0-32.0 [facility] Globulin (S) [Mass/Vol] 3.3 g/dL 2.2-4.2 [facility] Urea nitrogen/Creatinine [Mass ratio] 22.9 mg/mg 10-20 [facility] - Hematology and Cell countsOrdered By: Eliu Benites on 02-27-2023 Erythrocyte distribution width (RBC) [Entitic vol] 41.1 fL 35.1-43.9 [facility] Erythrocyte distribution width (RBC) [Ratio] 13.3 % 11.6-14.6 [facility] Immature granulocytes/100 WBC (Bld) 0.400 % 0.0-0.9 [facility] Comment on above: IG% - Immature Granu locytes (promyelocytes, myelocytes and metamyelocytes) > 1% indicates that a LEFT SHIFT is Present. MCH (RBC) [Entitic mass] 28.3 pg 27.0-32.0 [facility] Nucleated RBC/100 WBC (Bld) [Ratio] 0 % 0-[address] [facility] Auto (RBC) [Mass/Vol]Or dered By: Eliu Benites on 02-27-2023 MCHC (RBC) [Mass/Vol] 33.4 g/dL 32-36 [facility] No Panel InformationOrdered By: Eliu Benites on 02-27-2023 Estimated Creatinine Clearance Calc 215.55 ml/min [facility] Estimated GFR (MDRD) Amer 168 mL/min >60 [facility] Comment on above: GFR Calc Estimated GFR (MDRD) Non-Af Amer 139 mL/min >60 [facility] Comment on above: Non- GFR Calc Platelets bldOrdered By: Kj Benites on 02-27-2023 Platelets (Bld) [#/Vol] 190 10*3/uL 150-450 [facility] Serum or plasma albumin germain urement (mass/volume)Ordered By: Eliu Benites on 02-27-2023 Albumin [Mass/Vol] 3.0 g/dL 3.2-5.0 [facility] Serum or plasma albumin/glob ulin mass ratioOrdered By: Eliu Benites on 02-27-2023 Albumin/Globulin [Mass ratio] 0.9 {ratio} 0.9-2.4 [facility] Serum or plasma calcium germain urement (mass/volume)Ordered By: Eliu Benites on 02-27-2023 Calcium [Mass/Vol] 9.2 mg/dL 8.5-10.1 [facility] Serum or plasma creatinine m easurement (mass/volume)Ordered By: Eliu Benites on 02-27-2023 Creatinine [Mass/Vol] 0.65 mg/dL 0.70-1.30 [facility] Comment on above: The validity of the calculated GFR & GFRAA in patients over 70 years has not been determined. Clinical correlation is essential. Serum or plasma trough vanco mycin levelOrdered By: Eliu Benites on 02-27-2023 Vancomycin trough [Mass/Vol] 21.1 ug/mL 5.0-15.0 [facility] Comment on above: VANCOMYCIN STANDARED DRUG THERAPY TROUGH LEVEL: 5.0 - 15.0 mg/L VANCOMYCIN HIGH INTENSITY THERAPY TROUGH LEVEL: 15.0 - 20.0 mg/L High Intensity therapy recommended for serious lifethreatening infections include:- [id number]-Odnbuixlz (Ventilator/Healtcare Associated)-Sepsis PLEASE CONTACT PHARMACY SERVICES (#[id number]) FOR INTERPRETATIONOF RESULTS. Serum or plasma urea nitroge n measurement (mass/volume)Ordered By: Eliu Benites on 02-27-2023 Urea nitrogen [Mass/Vol] 15 mg/dL 7-18 [facility] Thin prep Papanicolaou smear with manual screeningOrdered By: Eliu Benites on 02-27-2023 Thin prep Papanicolaou smear with manual screening 11 U/L 15-37 [facility] Thin prep Papanicolaou smear with manual screening 6 5-15 [facility] Acid fast bacilli (AFB) cult ureOrdered By: Eliu Benites on 02-25-2023 Mycobacterium sp identified Org specific cx Nom (Unsp spec) [facility] Anaerobic cultureOrdered By: Eliu Benites on 02-25-2023 Bacteria identified Anaer cx Nom (Unsp spec) No anaerobic bacteria isolated. [facility] Bacteria identified Cx Nom ( Wound)Ordered By: Eliu Benites on 02-25-2023 Wound Culture Pseudomonas aeruginosa [facility] Wound Culture Streptococcus agalactiae (B) [facility] Wound Culture Staphylococcus epidermidis [facility] Wound Culture Pseudomonas aeruginosa [facility] Fungus cultureOrdered By: Pradip Benites on 02-25-2023 Fungus identified Cx Nom (Unsp spec) [facility] Fungus stainOrdered By: Gennaro Benites on 02-25-2023 Fungus identified Fungus stain Nom (Unsp spec) [facility] Gram stain for investigation of transfusion reactionOrdered By: Eliu Benites on 02-25-2023 Microscopic observation Gram stain Nom (Unsp spec) [facility] Microscopic observation Gram stain Nom (Unsp spec) [facility] Thin prep Papanicolaou smear with manual screeningOrdered By: Eliu Benites on 02-25-2023 Thin prep Papanicolaou smear with manual screening [facility] Erythrocyte sedimentation ra teOrdered By: Eliu Benites on 02-24-2023 ESR (Bld) [Velocity] 11 mm/h 0-20 [facility] Laboratory - Chemistry and C hemistry - challengeOrdered By: Xiomara Manley on 02-24-2023 Magnesium [Mass/Vol] 1.8 mg/dL 1.6-2.6 [facility] No Panel InformationOrdered By: Eliu Benites on 02-24-2023 Methicillin-Resist S.aureus DNA PCR Negative Negative [facility] Serum or plasma C reactive p rotein measurement (mass/volume)Ordered By: Eliu Benites on 02-24-2023 CRP [Mass/Vol] 5.19 mg/L 0.0-3.0 [facility] Comment on above: C-Reactive Protein ( CRP) provides useful information for thediagnosis, therapy and monitoring of inflammatory processesand associated diseases. For the evaluation of Relative Riskfor Cardiovascular Disease, a High Sensitivity CRP (HSCRP)should be ordered. Staphylococcus aureus DNA de tection by probe and target amplification methodOrdered By: Eliu Benites on 02-24-2023 S. aureus DNA BLANCA+probe Ql (Unsp spec) Negative Negative [facility] Whole blood hemoglobin A1c/t otal hemoglobin ratio (mass fraction)Ordered By: Eliu Benites on 02-24-2023 HbA1c (Bld) [Mass fraction] 8.8 % 3.8-5.6 [facility] Comment on above: Normal < 5.7 % Predi abetic 5.7 - 6.4 % Diabetic >or= 6.5 % Please note range changes. Absolute lymphocyte countOrd ered By: Ovidio Cedillo on 02-01-2023 Lymphocytes Auto (Unsp spec) [#/Vol] 3.11 10*3/uL 0.83-4.51 [facility] Basophil percentageOrdered B y: Ovidio Cedillo on 02-01-2023 Basophils/100 WBC (Bld) 0.5 % 0-1 [facility] Bilirubin [Mass/Vol] 0.50 mg/dL 0.20-1.00 [facility] Comment on above: For patients on eltr ombopag therapy, use of Dimension Leblanc TBIL is not recommended. Chloride [Moles/Vol] 107 mmol/L 98-107 [facility] Eosinophils/100 WBC (Bld) 2.2 % 0-5 [facility] Glucose [Mass/Vol] 181 mg/dL 74-106 [facility] Comment on above: Fasting Glucose resu lt greater than or equal to 126 mg/dL suggests DIABETES MELLITUS per A.D.A. criteria. Neutrophils (Bld) [#/Vol] 5.6 10*3/uL 2.0-7.7 [facility] Neutrophils/100 WBC (Bld) 58.2 % 47-70 [facility] Potassium [Moles/Vol] 3.5 mmol/L 3.5-5.1 [facility] Protein [Mass/Vol] 6.7 g/dL 6.4-8.2 [facility] Sodium [Moles/Vol] 138 mmol/L 136-145 [facility] WBC (Bld) [#/Vol] 9.6 10*3/uL 4.4-11.0 [facility] Blood erythrocytes count (nu mber/volume)Ordered By: Ovidio Cedillo on 02-01-2023 RBC (Bld) [#/Vol] 5.33 10*6/uL 4.6-6.2 [place] Blood hemoglobin measurement (mass/volume)Ordered By: Ovidio Cedillo on 02-01-2023 Hemoglobin (Bld) [Mass/Vol] 15.2 g/dL 13.0-16.5 [facility] Blood lymphocytes/100 leukoc ytesOrdered By: Ovidio Cedillo on 02-01-2023 Lymphocytes/100 WBC (Bld) 32.3 % 19-41 [facility] Blood monocytes/100 leukocyt esOrdered By: Ovidio Cedillo on 02-01-2023 Monocytes/100 WBC (Bld) 6.5 % 0-10 [facility] Blood platelet mean volumeOr dered By: Ovidio Cedillo on 02-01-2023 Platelet mean volume (Bld) [Entitic vol] 9.9 fL 6.2-12.0 [facility] CNOVon 02-01-2023 CNOV Office Visit (UCWSTR ) HOMER DUMAS ([id number]) 1975 M Date Time Provider Department 02/01/23 3:15 PM JAVIER SANCHEZ [facility] During your visit today, we recorded the following information about you: Temperature Pulse Respiration Blood pressure 98.1 degrees 97/minute 16/minute 126/84 Weight 176.4 kg Javier Sanchez MD 02/01/2023 3:36 PM Signed Patient presents with: Infection: 2nd toe on [...] acute distress. Accompanied by his . Red jah at the tip of the left 2nd toe. 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 Erythema and swelling of the mid lower leg, ankle, and foot. ASSESSMENT/PLAN: 1. Cellulitis of left foot - ICD9: 682.7, ICD10: L03.116 Advised ER evaluation and treatment for progressive infection with progressive signs and systemic symptoms. [facility] will go to [facility]. Report sent by ER Passport. Javier Sanchez MD Allergies As of Date: 02/01/2023 (No Known Allergies) Date Reviewed: 02/01/2023 Reviewed by: Heather Pete LPN - Fully Assessed Reason for Visit: Infection [782740] Cmt: 2nd toe on left food Primary Visit Diagnosis:Cellulitis of left foot [L03.116] Prescriptions as of 02/01/2023 - alfuzosin SR (UROXATRAL) 10 mg 24 hr tablet Take 10 mg by mouth once daily. Problem List As Of Date 02/01/2023 Noted Resolved Hamstring strain, right, subsequent encounter [*05/23/2021 Medications Discontinued During This Encounter Prescriptions - benzonatate (TESSALON PERLE) 100 mg capsule (Discontinued) Reported on 02/01/2023 - metFORMIN (GLUCOPHAGE) 500 mg tablet (Discontinued) Reported on 10/11/2021 Encounter Status:Closed by JAVIER SANCHEZ on 02/01/23 Normal [facility] Determination of erythrocyte mean corpuscular volume (MCV)Ordered By: Ovidio Cedillo on 02-01-2023 MCV (RBC) [Entitic vol] 82.7 fL 80-94 [facility] Erythrocyte sedimentation ra teOrdered By: Ovidio Cedillo on 02-01-2023 ESR (Bld) [Velocity] 13 mm/h 0-20 [facility] Hematocrit Auto (Bld) [Volum e fraction]Ordered By: Ovidio Cedillo on 02-01-2023 Hematocrit (Bld) [Volume fraction] 44.1 % 40-54 [facility] Laboratory - Chemistry and C hemistry - challengeOrdered By: Ovidio Cedillo on 02-01-2023 ALP [Catalytic activity/Vol] 107 U/L 45-117 [facility] ALT [Catalytic activity/Vol] 30 U/L 16-61 [facility] CO2 [Moles/Vol] 27.0 mmol/L 21.0-32.0 [facility] Globulin (S) [Mass/Vol] 3.3 g/dL 2.2-4.2 [facility] Urea nitrogen/Creatinine [Mass ratio] 15.5 mg/mg 10-20 [facility] Laboratory - Hematology and Cell countsOrdered By: Ovidio Cedillo on 02-01-2023 Erythrocyte distribution width (RBC) [Entitic vol] 39.6 fL 35.1-43.9 [facility] Erythrocyte distribution width (RBC) [Ratio] 13.2 % 11.6-14.6 [facility] Immature granulocytes/100 WBC (Bld) 0.300 % 0.0-0.9 [facility] Comment on above: IG% - Immature Granu locytes (promyelocytes, myelocytes and metamyelocytes) > 1% indicates that a LEFT SHIFT is Present. MCH (RBC) [Entitic mass] 28.5 pg 27.0-32.0 [facility] Nucleated RBC/100 WBC (Bld) [Ratio] 0 % 0-5 [facility] MCHC Auto (RBC) [Mass/Vol]Or dered By: Ovidio Cedillo on 02-01-2023 MCHC (RBC) [Mass/Vol] 34.5 g/dL 32-36 [facility] No Panel InformationOrdered By: Ovidio Cedillo on 02-01-2023 Estimated GFR (MDRD) Amer 107 mL/min >60 [facility] Comment on above: GFR Calc Estimated GFR (MDRD) Non-Af Amer 88 mL/min >60 [facility] Comment on above: Non- GFR Calc Platelets bldOrdered By: Abhishek Cedillo on 02-01-2023 Platelets (Bld) [#/Vol] 241 10*3/uL 150-450 [facility] Serum or plasma C reactive p rotein measurement (mass/volume)Ordered By: Ovidio Cedillo on 02-01-2023 CRP [Mass/Vol] 11.60 mg/L 0.0-3.0 [facility] Comment on above: C-Reactive Protein ( CRP) provides useful information for thediagnosis, therapy and monitoring of inflammatory processesand associated diseases. For the evaluation of Relative Riskfor Cardiovascular Disease, a High Sensitivity CRP (HSCRP)should be ordered. Serum or plasma albumin germain urement (mass/volume)Ordered By: Ovidio Cedillo on 02-01-2023 Albumin [Mass/Vol] 3.4 g/dL 3.2-5.0 [facility] Serum or plasma albumin/glob ulin mass ratioOrdered By: Ovidio Cedillo on 02-01-2023 Albumin/Globulin [Mass ratio] 1.0 {ratio} 0.9-2.4 [facility] Serum or plasma calcium germain urement (mass/volume)Ordered By: Ovidio Cedillo on 02-01-2023 Calcium [Mass/Vol] 8.9 mg/dL 8.5-10.1 [facility] Serum or plasma creatinine m easurement (mass/volume)Ordered By: Ovidio Cedillo on 02-01-2023 Creatinine [Mass/Vol] 0.97 mg/dL 0.70-1.30 [facility] Comment on above: The validity of the calculated GFR & GFRAA in patients over 70 years has not been determined. Clinical correlation is essential. Serum or plasma urea nitroge n measurement (mass/volume)Ordered By: Ovidio Cedillo on 02-01-2023 Urea nitrogen [Mass/Vol] 15 mg/dL 7-18 [facility] Thin prep Papanicolaou smear with manual screeningOrdered By: Ovidio Cedillo on 02-01-2023 Thin prep Papanicolaou smear with manual screening 18 U/L 15-37 [facility] Thin prep Papanicolaou smear with manual screening 4 5-15 [facility] No Panel InformationOrdered By: Maria Victoria Ohara on 09-27-2022 Prostate Specific Antigen Screen 0.50 ng/mL 0.00-4.00 [facility] Comment on above: This test was perfor med using the TPSA assay method for [employer] chemistry system. Values obtained with differentassay methods cannot be used interchangably.When changing PSA assays in the course of monitoring apatient, additional sequential testing should be carriedout to confirm baseline values. Absolute lymphocyte counton 05-30-2021 Lymphocytes Auto (Unsp spec) [#/Vol] 2.52 10*3/uL 0.83-4.51 [facility] Work Phone: Basophil percentageon 2021 Basophils/100 WBC (Bld) 0.3 % 0-1 [facility] Work Phone: Bilirubin [Mass/Vol] 0.40 mg/dL 0.20-1.00 [facility] Work Phone: Comment on above: For patients on eltr ombopag therapy, use of Dimension Leblanc TBIL is not recommended. Chloride [Moles/Vol] 108 mmol/L 98-107 [facility] Work Phone: Eosinophils/100 WBC (Bld) 2.1 % 0-5 [facility] Work Phone: Glucose [Mass/Vol] 139 mg/dL 74-106 [facility] Work Phone: Comment on above: Fasting Glucose resu lt greater than or equal to 126 mg/dL suggests DIABETES MELLITUS per A.D.A. criteria. Lactate [Moles/Vol] 1.4 mmol/L 0.4-2.0 [place] Work Phone: Neutrophils (Bld) [#/Vol] 5.3 10*3/uL 2.0-7.7 [facility] Work Phone: [phone] Neutrophils/100 WBC (Bld) 61.3 % 47-70 [facility] Work Phone: Potassium [Moles/Vol] 3.7 mmol/L 3.5-5.1 [facility]: Protein [Mass/Vol] 6.7 g/dL 6.4-8.2 [facility] Work Phone: Sodium [Moles/Vol] 140 mmol/L 136-145 [facility] Work Phone: [phone] WBC (Bld) [#/Vol] 8.7 10*3/uL 4.4-11.0 [facility] Work Phone: Blood erythrocytes count (nu mber/volume)on 05-30-2021 RBC (Bld) [#/Vol] 5.10 10*6/uL 4.6-6.2 [facility] Work Phone: Blood hemoglobin measurement (mass/volume)on 05-30-2021 Hemoglobin (Bld) [Mass/Vol] 14.5 g/dL 13.0-16.5 [facility] Work Phone: Blood lymphocytes/100 leukoc yteson 05-30-2021 Lymphocytes/100 WBC (Bld) 29.0 % 19-41 [facility] Work Phone: Blood monocytes/100 leukocyt eson 05-30-2021 Monocytes/100 WBC (Bld) 6.7 % 0-10 [facility] Work Phone: Blood platelet mean volumeon 05-30-2021 Platelet mean volume (Bld) [Entitic vol] 9.4 fL 6.2-12.0 [facility] Work Phone: Determination of erythrocyte mean corpuscular volume (MCV)on 05-30-2021 MCV (RBC) [Entitic vol] 83.5 fL 80-94 [facility] Work Phone: Hematocrit Auto (Bld) [Volum e fraction]on 05-30-2021 Hematocrit (Bld) [Volume fraction] 42.6 % 40-54 [facility] Work Phone: Laboratory - Chemistry and C hemistry - challengeon 05-30-2021 ALP [Catalytic activity/Vol] 85 U/L 45-117 [facility] Work Phone: ALT [Catalytic activity/Vol] 41 U/L 16-61 [facility] Work Phone: CO2 [Moles/Vol] 27.0 mmol/L 21.0-32.0 [facility] Work Phone: Globulin (S) [Mass/Vol] 3.2 g/dL 2.2-4.2 [facility] Work Phone: Urea nitrogen/Creatinine [Mass ratio] 17.9 mg/mg 10-20 [facility] Work Phone: Laboratory - Hematology and Cell countson 05-30-2021 Erythrocyte distribution width (RBC) [Entitic vol] 39.7 fL 35.1-43.9 [facility] Work Phone: Erythrocyte distribution width (RBC) [Ratio] 13.0 % 11.6-14.6 [facility] Work Phone: Immature granulocytes/100 WBC (Bld) 0.600 % 0.0-0.9 [facility] Work Phone: Comment on above: IG% - Immature Granu locytes (promyelocytes, myelocytes and metamyelocytes) > 1% indicates that a LEFT SHIFT is Present. MCH (RBC) [Entitic mass] 28.4 pg 27.0-32.0 [facility] Work Phone: Nucleated RBC/100 WBC (Bld) [Ratio] 0 % 0-5 [facility] Work Phone: Laboratory - Microbiology an d Antimicrobial susceptibilityon 05-30-2021 Bacteria identified Cx Nom (Bld) No growth in 5 days. [facility] Work Phone: MCHC Auto (RBC) [Mass/Vol]on 05-30-2021 MCHC (RBC) [Mass/Vol] 34.0 g/dL 32-36 [facility] Work Phone: No Panel Informationon 05-30 Estimated Creatinine Clearance Calc 105.18 ml/min [facility] Work Phone: Estimated GFR (MDRD) Amer 97 mL/min >60 [facility] Work Phone: Comment on above: GFR Calc Estimated GFR (MDRD) Non-Af Amer 80 mL/min >60 [facility] Work Phone: Comment on above: Non- GFR Calc Platelets bldon 05-30-2021 Platelets (Bld) [#/Vol] 189 10*3/uL 150-450 [facility] Work Phone: Serum or plasma albumin germain urement (mass/volume)on 05-30-2021 Albumin [Mass/Vol] 3.5 g/dL 3.2-5.0 [facility] Work Phone: Serum or plasma albumin/glob ulin mass ratioon 05-30-2021 Albumin/Globulin [Mass ratio] 1.1 {ratio} 0.9-2.4 [facility] Work Phone: Serum or plasma calcium germain urement (mass/volume)on 05-30-2021 Calcium [Mass/Vol] 8.3 mg/dL 8.5-10.1 [facility] Work Phone: Serum or plasma creatinine m easurement (mass/volume)on 05-30-2021 Creatinine [Mass/Vol] 1.06 mg/dL 0.70-1.30 [facility] Work Phone: Comment on above: The validity of the calculated GFR & GFRAA in patients over 70 years has not been determined. Clinical correlation is essential. Serum or plasma urea nitroge n measurement (mass/volume)on 05-30-2021 Urea nitrogen [Mass/Vol] 19 mg/dL 7-18 [facility] Work Phone: Thin prep Papanicolaou smear with manual screeningon 05-30-2021 Thin prep Papanicolaou smear with manual screening 17 U/L 15-37 [facility] Work Phone: Thin prep Papanicolaou smear with manual screening 5 5-15 [facility] Work Phone: No Panel Informationon 05-09 [facility] Absolute lymphocyte counton 04-29-2021 Lymphocytes Auto (Unsp spec) [#/Vol] 3.09 10*3/uL 0.83-4.51 [facility] Work Phone: Basophil percentageon 2021 Basophils/100 WBC (Bld) 0.5 % 0-1 [facility] Work Phone: Chloride [Moles/Vol] 104 mmol/L 98-107 [facility] Work Phone: Eosinophils/100 WBC (Bld) 2.9 % 0-5 [facility] Work Phone: Glucose [Mass/Vol] 158 mg/dL 74-106 [facility] Work Phone: Comment on above: Fasting Glucose resu lt greater than or equal to 126 mg/dL suggests DIABETES MELLITUS per A.D.A. criteria. Neutrophils (Bld) [#/Vol] 4.4 10*3/uL 2.0-7.7 [facility] Work Phone: Neutrophils/100 WBC (Bld) 51.0 % 47-70 [facility] Work Phone: Potassium [Moles/Vol] 4.2 mmol/L 3.5-5.1 [facility] Work Phone: Sodium [Moles/Vol] 138 mmol/L 136-145 [facility] Work Phone: WBC (Bld) [#/Vol] 8.5 10*3/uL 4.4-11.0 [facility] Work Phone: Blood erythrocytes count (nu mber/volume)on 04-29-2021 RBC (Bld) [#/Vol] 5.07 10*6/uL 4.6-6.2 [place] Work Phone: Blood hemoglobin measurement (mass/volume)on 04-29-2021 Hemoglobin (Bld) [Mass/Vol] 14.3 g/dL 13.0-16.5 [facility] Work Phone: Blood lymphocytes/100 leukoc yteson 04-29-2021 Lymphocytes/100 WBC (Bld) 36.3 % 19-41 [facility] Work Phone: Blood monocytes/100 leukocyt eson 04-29-2021 Monocytes/100 WBC (Bld) 8.7 % 0-10 [facility] Work Phone: Blood platelet mean volumeon 04-29-2021 Platelet mean volume (Bld) [Entitic vol] 9.6 fL 6.2-12.0 [facility] Work Phone: Determination of erythrocyte mean corpuscular volume (MCV)on 04-29-2021 MCV (RBC) [Entitic vol] 87.6 fL 80-94 [facility] Work Phone: Glucose Glucometer (BldC) [M ass/Vol]on 04-29-2021 Glucose [Mass/Vol] 149 mg/dL 74-106 [facility] Work Phone: Comment on above: MANAGEMENT OF PATIEN T CARE PER NURSING PROTOCOL Hematocrit Auto (Bld) [Volum e fraction]on 04-29-2021 Hematocrit (Bld) [Volume fraction] 44.4 % 40-54 [facility] Work Phone: Laboratory - Chemistry and C hemistry - challengeon 04-29-2021 CO2 [Moles/Vol] 31.0 mmol/L 21.0-32.0 [facility] Work Phone: Urea nitrogen/Creatinine [Mass ratio] 23.6 mg/mg 10-20 [facility] Work Phone: Laboratory - Hematology and Cell countson 04-29-2021 Erythrocyte distribution width (RBC) [Entitic vol] 43.5 fL 35.1-43.9 [facility] Work Phone: Erythrocyte distribution width (RBC) [Ratio] 13.5 % 11.6-14.6 [facility] Work Phone: Immature granulocytes/100 WBC (Bld) 0.600 % 0.0-0.9 [facility] Work Phone: Comment on above: IG% - Immature Granu locytes (promyelocytes, myelocytes and metamyelocytes) > 1% indicates that a LEFT SHIFT is Present. MCH (RBC) [Entitic mass] 28.2 pg 27.0-32.0 [facility] Work Phone: Nucleated RBC/100 WBC (Bld) [Ratio] 0 % 0-5 [facility] Work Phone: MCHC Auto (RBC) [Mass/Vol]on 04-29-2021 MCHC (RBC) [Mass/Vol] 32.2 g/dL 32-36 [facility] Work Phone: No Panel Informationon 04-29 Estimated Creatinine Clearance Calc 163.96 ml/min [facility] Work Phone: Estimated GFR (MDRD) Amer 163 mL/min >60 [facility] Work Phone: Comment on above: GFR Calc Estimated GFR (MDRD) Non-Af Amer 134 mL/min >60 [facility] Work Phone: Comment on above: Non- GFR Calc Platelets bldon 04-29-2021 Platelets (Bld) [#/Vol] 215 10*3/uL 150-450 [facility] Work Phone: Serum or plasma calcium germain urement (mass/volume)on 04-29-2021 Calcium [Mass/Vol] 8.8 mg/dL 8.5-10.1 [facility] Work Phone: Serum or plasma creatinine m easurement (mass/volume)on 04-29-2021 Creatinine [Mass/Vol] 0.68 mg/dL 0.70-1.30 [facility] Work Phone: Comment on above: The validity of the calculated GFR & GFRAA in patients over 70 years has not been determined. Clinical correlation is essential. Serum or plasma urea nitroge n measurement (mass/volume)on 04-29-2021 Urea nitrogen [Mass/Vol] 16 mg/dL 7-18 [facility] Work Phone: Thin prep Papanicolaou smear with manual screeningon 04-29-2021 Thin prep Papanicolaou smear with manual screening 3 5-15 [facility] Work Phone: Basophil percentageon 2021 Basophil percentage 3.1 mg/dL 2.5-4.9 [place] Work Phone: Bilirubin [Mass/Vol] 0.80 mg/dL 0.20-1.00 [facility] Work Phone: Comment on above: For patients on eltr ombopag therapy, use of Dimension Leblanc TBIL is not recommended. Protein [Mass/Vol] 6.7 g/dL 6.4-8.2 [facility] Work Phone: Laboratory - Chemistry and C hemistry - challengeon 04-28-2021 ALP [Catalytic activity/Vol] 91 U/L 45-117 [facility] Work Phone: ALT [Catalytic activity/Vol] 36 U/L 16-61 [facility] Work Phone: Globulin (S) [Mass/Vol] 3.3 g/dL 2.2-4.2 [facility] Work Phone: Magnesium [Mass/Vol] 1.9 mg/dL 1.6-2.6 [facility] Work Phone: Serum or plasma albumin germain urement (mass/volume)on 04-28-2021 Albumin [Mass/Vol] 3.4 g/dL 3.2-5.0 [facility] Work Phone: Serum or plasma albumin/glob ulin mass ratioon 04-28-2021 Albumin/Globulin [Mass ratio] 1.0 {ratio} 0.9-2.4 [facility] Work Phone: Thin prep Papanicolaou smear with manual screeningon 04-28-2021 Thin prep Papanicolaou smear with manual screening 16 U/L 15-37 [facility] Work Phone: Bacteria identified Cx Nom ( Wound)on 04-27-2021 Wound Culture Staphylococcus aureus [facility] Work Phone: Wound Culture Streptococcus agalactiae (B) [facility] Work Phone: Wound Culture Globicatella sulfidifaciens [facility] Work Phone: Erythrocyte sedimentation ra nelson 04-27-2021 ESR (Bld) [Velocity] 21 mm/h 0-20 [facility] Work Phone: Gram stain for investigation of transfusion reactionon 04-27-2021 Microscopic observation Gram stain Nom (Unsp spec) [facility] Work Phone: No Panel Informationon 04-27 Methicillin-Resist S.aureus DNA PCR Negative Negative [facility] Work Phone: Serum or plasma C reactive p rotein measurement (mass/volume)on 04-27-2021 CRP [Mass/Vol] 22.30 mg/L 0.0-3.0 [facility] Work Phone: Comment on above: C-Reactive Protein ( CRP) provides useful information for thediagnosis, therapy and monitoring of inflammatory processesand associated diseases. For the evaluation of Relative Riskfor Cardiovascular Disease, a High Sensitivity CRP (HSCRP)should be ordered. Staphylococcus aureus DNA de tection by probe and target amplification methodon 04-27-2021 S. aureus DNA BLANCA+probe Ql (Unsp spec) Positive Negative [facility] Work Phone: Whole blood hemoglobin A1c/t otal hemoglobin ratio (mass fraction)on 04-27-2021 HbA1c (Bld) [Mass fraction] 6.4 % 3.8-5.6 [facility] Work Phone: Comment on above: Normal < 5.7 % Predi abetic 5.7 - 6.4 % Diabetic >or= 6.5 % Please note range changes. CORONAVIRUS PCR [CCL]on 01-18 COVID 19 Result SONOGRAPHER Negative Normal [facility] Comment on above: Result Comment: Nega tive for COVID19 (SARS CoV2) by PCR. This test was developed and its performance characteristics determined by [facility] [place]. This test has been authorized by FDA under an Emergency Use Authorization (EUA). This test has been validated in accordance with the FDA's Guidance Document Policy for Diagnostics Testing in Laboratories Certified to Perform High Complexity Testing under CLIA prior to Emergency use Authorization for Coronavirus Disease 2019 during the Public Health Emergency issued on April 17, 2019. [facility] [address] [place] [address] Guy Landers III, M.D. [id number] Performed By: [id number] #### [facility],[address] [place] [id number] COVID 19 Source SONOGRAPHER Nasopharyngeal Swab Normal [facility] Comment on above: Result Comment: [place] ected on 02/04 AT 1336: Previously reported as SONOGRAPHER Performed By: [id number] #### [facility],[address] [place] [id number] Coronavirus 2019on 0 COVID 19 Result SONOGRAPHER Normal Negative for COVID19 (SARS CoV2) by PCR. [facility] Comment on above: Result Comment: Nega tive for This test was developed and its performance characteristics determined by [facility] [place]. This test has been authorized by FDA under an Emergency Use Authorization (EUA). This test has been validated in accordance with the FDA's Guidance Document Policy for Diagnostics Testing in Laboratories Certified to Perform High Complexity Testing under CLIA prior to Emergency use Authorization for Coronavirus Disease 2019 during the Public Health Emergency issued on April 17, 2019. COVID19 (SARS This test was developed and its performance characteristics [facility] [place]. This test has been authorized by FDA under an Emergency Use Authorization (EUA). This test has been validated in accordance with the FDA's Guidance Document Policy for Diagnostics Testing in Laboratories Certified to Perform High Complexity Testing under CLIA prior to Emergency use Authorization for Coronavirus Disease 2019 during the Public Health Emergency issued on April 17, 2019. CoV2) by PCR. This test was developed and its performance characteristics determined by [facility] [place]. This test has been authorized by FDA under an Emergency Use Authorization (EUA). This test has been validated in accordance with the FDA's Guidance Document Policy for Diagnostics Testing in Laboratories Certified to Perform High Complexity Testing under CLIA prior to Emergency use Authorization for Coronavirus Disease 2019 during the Public Health Emergency issued on April 17, 2019. Coronavirus 2019on 0 COVID 19 Source SONOGRAPHER [facility] Comment on above: Result Comment: Naso pharyngeal Corrected on 02/04 AT 1336: Previously reported as SONOGRAPHER Swab Corrected on 02/04 AT 1336: Previously reported as SONOGRAPHER Bacteria identified Cx Nom ( Wound) Wound Culture Pseudomonas aeroginosa [facility] Work Phone: Wound Culture Escherichia coli [place] Work Phone: Wound Culture Streptococcus agalactiae (B) [facility] Work Phone: Wound Culture Streptococcus group G [facility] Work Phone: Gram stain for investigation of transfusion reaction Microscopic observation Gram stain Nom (Unsp spec) [facility] Work Phone: Vital Signs Date Time Vital Sign Value Performing Clinician Facility 07-07-2024 13:08-0400 Body temperature 98.5 [degF] Grazyna Esquivel NP-C Work Phone: [facility] 07-07-2024 13:08-0400 Diastolic blood pressure 63 mm[Hg] Grazyna Esquivel NP-C Work Phone: [facility] 07-07-2024 13:08-0400 Heart rate 106 /min Grazyna Esquivel NP-C Work Phone: [facility] 07-07-2024 13:08-0400 Respiratory rate 19 /min Grazynafina Darnellullo SONOGRAPHER-C Work Phone: [facility] 07-07-2024 13:08-0400 SaO2% (BldA) [Mass fraction] 95 % Grazynafina Darnellullo SONOGRAPHER-C Work Phone: [facility] 07-07-2024 13:08-0400 Systolic blood pressure 111 mm[Hg] Grazynafina Darnellullo SONOGRAPHER-C Work Phone: [facility] 07-07-2024 08:59-0400 Body height 190.5 cm Grazyna Ferullo SONOGRAPHER-C Work Phone: [facility] 07-07-2024 08:59-0400 Body mass index (BMI) [Ratio] 41.5 kg/m2 Grazyna Ferullo SONOGRAPHER-C Work Phone: [facility] 07-07-2024 08:59-0400 Body weight 150.81 kg Grazyna Ferullo SONOGRAPHER-C Work Phone: [facility] 07-01-2024 18:10-0400 Diastolic blood pressure 80 mm[Hg] Grazyna Ferullo SONOGRAPHER-C Work Phone: [facility] 07-01-2024 18:10-0400 Heart rate 83 /min Grazyna Ferullo SONOGRAPHER-C Work Phone: [facility] 07-01-2024 18:10-0400 Respiratory rate 18 /min Grazyna Ferullo SONOGRAPHER-C Work Phone: [facility] 07-01-2024 18:10-0400 SaO2% (BldA) [Mass fraction] 98 % Grazyna Ferullo SONOGRAPHER-C Work Phone: [facility] 07-01-2024 18:10-0400 Systolic blood pressure 134 mm[Hg] Grazyna Ferullo SONOGRAPHER-C Work Phone: [facility] 07-01-2024 15:11-0400 Body height 190.5 cm Grazyna Ferullo SONOGRAPHER-C Work Phone: [facility] 07-01-2024 15:11-0400 Body mass index (BMI) [Ratio] 39.1 kg/m2 Grazyna Rangelo SONOGRAPHER-C Work Phone: [facility] 07-01-2024 15:11-0400 Body temperature 98.6 [degF] Grazyna Rangelo SONOGRAPHER-C Work Phone: [facility] 07-01-2024 15:11-0400 Body weight 141.97 kg Grazyna Rangelo SONOGRAPHER-C Work Phone: [facility] 06-23-2024 10:59-0400 Body mass index (BMI) [Ratio] 41.5 kg/m2 Grazyna Rangelo SONOGRAPHER-C Work Phone: [facility] 06-23-2024 10:59-0400 Body temperature 96.4 [degF] Grazyna Rangelo SONOGRAPHER-C Work Phone: [facility] 06-23-2024 10:59-0400 Body weight 150.59 kg Grazyna Rangelo SONOGRAPHER-C Work Phone: [facility] 06-23-2024 10:59-0400 Diastolic blood pressure 90 mm[Hg] Grazyna Rangelo SONOGRAPHER-C Work Phone: [facility] 06-23-2024 10:59-0400 Heart rate 100 /min Grazyna Rangelo SONOGRAPHER-C Work Phone: [facility] 06-23-2024 10:59-0400 Respiratory rate 16 /min Grazyna Rangelo SONOGRAPHER-C Work Phone: [facility] 06-23-2024 10:59-0400 SaO2% (BldA) [Mass fraction] 97 % Grazyna Rangelo SONOGRAPHER-C Work Phone: [facility] 06-23-2024 10:59-0400 Systolic blood pressure 130 mm[Hg] Grazyna Rangelo SONOGRAPHER-C Work Phone: [facility] 05-13-2024 08:09-0400 Body temperature 98.8 [degF] Grazyna Rangelo SONOGRAPHER-C Work Phone: [facility] 05-13-2024 08:09-0400 Diastolic blood pressure 67 mm[Hg] Grazyna Rangelo SONOGRAPHER-C Work Phone: [facility] 05-13-2024 08:09-0400 Heart rate 79 /min Grazyna Rangelo SONOGRAPHER-C Work Phone: [facility] 05-13-2024 08:09-0400 Respiratory rate 16 /min Grazyna Rangelo SONOGRAPHER-C Work Phone: [facility] 05-13-2024 08:09-0400 SaO2% (BldA) [Mass fraction] 94 % Grazyna Rangelo SONOGRAPHER-C Work Phone: [facility] 05-13-2024 08:09-0400 Systolic blood pressure 98 mm[Hg] Grazyna Rangelo SONOGRAPHER-C Work Phone: [facility] 05-13-2024 06:40-0400 Body height 190.5 cm Grazyna Rangelo SONOGRAPHER-C Work Phone: [facility] 05-13-2024 06:40-0400 Body mass index (BMI) [Ratio] 41.5 kg/m2 Grazyna Rangelo SONOGRAPHER-C Work Phone: [facility] 05-13-2024 06:40-0400 Body weight 150.6 kg Grazyna Darnellullo SONOGRAPHER-C Work Phone: [facility] 03-25-2024 11:42-0500 Body mass index (BMI) [Ratio] 43 kg/m2 Grazyna Mannullo SONOGRAPHER-C Work Phone: [facility] 03-25-2024 11:42-0500 Body weight 156.03 kg Grazynafina Darnellullo SONOGRAPHER-C Work Phone: [facility] 03-22-2024 09:08-0500 Body mass index (BMI) [Ratio] 43 kg/m2 Grazyna Darnellconsueloo SONOGRAPHER-C Work Phone: [facility] 03-22-2024 09:08-0500 Body temperature 96.9 [degF] Grazyna Darnellconsueloo SONOGRAPHER-C Work Phone: [facility] 03-22-2024 09:08-0500 Body weight 156.2 kg Grazyna Darnellpepe SONOGRAPHER-C Work Phone: [facility] 03-22-2024 09:08-0500 Diastolic blood pressure 78 mm[Hg] Grazyna Darnellconsueloo SONOGRAPHER-C Work Phone: [facility] 03-22-2024 09:08-0500 Heart rate 86 /min Grazyna Darnellconsueloo SONOGRAPHER-C Work Phone: [facility] 03-22-2024 09:08-0500 Respiratory rate 16 /min Grazyna Darnellpepe SONOGRAPHER-C Work Phone: [facility] 03-22-2024 09:08-0500 SaO2% (BldA) [Mass fraction] 98 % Grazyna Darnellpepe SONOGRAPHER-C Work Phone: [facility] 03-22-2024 09:08-0500 Systolic blood pressure 128 mm[Hg] Grazyna Darnellpepe SONOGRAPHER-C Work Phone: [facility] 05-15-2023 11:41-0400 Body height 190.[address] Sun Brar Work Phone: [facility] 05-15-2023 11:41-0400 Body mass index (BMI) [Ratio] 48.6 kg/m2 Dr. Sun Brar Work Phone: [facility] 05-15-2023 11:41-0400 Body temperature 97.6 [degF] Dr. Sun Brar Work Phone: [facility] 05-15-2023 11:41-0400 Body weight 176.[address] Sun Brar Work Phone: [facility] 05-15-2023 11:41-0400 Diastolic blood pressure 82 mm[Hg] Dr. Sun Brar Work Phone: [facility] 05-15-2023 11:41-0400 Heart rate 103 /min Dr. Sun Brar Work Phone: [facility] 05-15-2023 11:41-0400 Respiratory rate 16 /min Dr. Sun Brar Work Phone: [facility] 05-15-2023 11:41-0400 SaO2% (BldA) [Mass fraction] 93 % Dr. Sun Brar Work Phone: [facility] 05-15-2023 11:41-0400 Systolic blood pressure 122 mm[Hg] Dr. Sun Brar Work Phone: [facility] 02-28-2023 14:14-0500 Body temperature 97.4 [degF] Dr. Sun Brar Work Phone: [facility] 02-28-2023 14:14-0500 Diastolic blood pressure 76 mm[Hg] Dr. Sun Brar Work Phone: [facility] 02-28-2023 14:14-0500 Heart rate 87 /min Dr. Sun Brar Work Phone: [facility] 02-28-2023 14:14-0500 Respiratory rate 14 /min Dr. Sun Brar Work Phone: [facility] 02-28-2023 14:14-0500 SaO2% (BldA) [Mass fraction] 97 % Dr. Sun Brar Work Phone: [facility] 02-28-2023 14:14-0500 Systolic blood pressure 125 mm[Hg] Dr. Sun Brar Work Phone: [facility] 02-25-2023 13:58-0500 Body height 190.[address] Sun Brar Work Phone: [facility] 02-25-2023 13:58-0500 Body mass index (BMI) [Ratio] 39.8 kg/m2 Dr. Sun Brar Work Phone: [facility] 02-25-2023 13:58-0500 Body weight 144.[address] Sun Brar Work Phone: [facility] 02-01-2023 15:31-0500 Body height 190.5 cm [facility] 02-01-2023 15:31-0500 Body temperature 97.8 [degF] [facility] 02-01-2023 15:31-0500 Diastolic blood pressure 85 mm[Hg] [facility] 02-01-2023 15:31-0500 Heart rate 98 /min [facility] 02-01-2023 15:31-0500 Respiratory rate 15 /min [facility] 02-01-2023 15:31-0500 SaO2% (BldA) [Mass fraction] 96 % [facility] 02-01-2023 15:31-0500 Systolic blood pressure 128 mm[Hg] [facility] 02-01-2023 15:18-0500 Body temperature 98.1 [degF] Javier Sanchez MD Work Phone: [facility] 02-01-2023 15:18-0500 Body weight 176.45 kg Javier Sanchez MD Work Phone: [facility] 02-01-2023 15:18-0500 Diastolic blood pressure 84 mm[Hg] Javier Sanchez MD Work Phone: [facility] 02-01-2023 15:18-0500 Heart rate 97 /min Javier Sanchez MD Work Phone: [facility] 02-01-2023 15:18-0500 Respiratory rate 16 /min Javier Sanchez MD Work Phone: [facility] 02-01-2023 15:18-0500 SaO2% (BldA) [Mass fraction] 98 % Javier Sanchez MD Work Phone: [facility] 02-01-2023 15:18-0500 Systolic blood pressure 126 mm[Hg] Javier Sanchez MD Work Phone: [facility] 09-21-2022 17:33-0400 Blood Pressure Location ISAAC BURGER MD [facility] 09-21-2022 17:33-0400 Body temperature 97.88 [degF] ISAAC BURGER MD [facility] 09-21-2022 17:33-0400 Diastolic Blood Pressure Non-Invasive 80 1 ISAAC BURGER MD [facility] 09-21-2022 17:33-0400 Heart rate 107 /min ISAAC BURGER MD [facility] 09-21-2022 17:33-0400 Systolic Blood Pressure Non-Invasive 119 1 ISAAC BURGER MD [facility] 08-11-2022 09:01-0400 Body height 187.[address] Vlad Smith Work Phone: [facility] 08-11-2022 09:01-0400 Body mass index (BMI) [Ratio] 49.9 kg/m2 Dr. Vlad Smith Work Phone: [facility] 08-11-2022 09:01-0400 Body temperature 97.2 [degF] Dr. Vlad Smith Work Phone: [facility] 08-11-2022 09:01-0400 Body weight 176.[address] Vlad Smith Work Phone: [facility] 08-11-2022 09:01-0400 Diastolic blood pressure 78 mm[Hg] Dr. Vlad Smith Work Phone: [facility] 08-11-2022 09:01-0400 Heart rate 103 /min Dr. Vlad Smith Work Phone: [facility] 08-11-2022 09:01-0400 Respiratory rate 16 /min Dr. Vlad Smith Work Phone: [facility] 08-11-2022 09:01-0400 SaO2% (BldA) [Mass fraction] 97 % Dr. Vlad Smith Work Phone: [facility] 08-11-2022 09:01-0400 Systolic blood pressure 108 mm[Hg] Dr. Vlad Smith Work Phone: [facility] 01-22-2022 10:36-0500 Body temperature 97.81 [degF] Evelyn Mirtha FLOOR HAND.DIRECTOR OF INDIVIDUAL GIVING Work Phone: [facility] 01-22-2022 10:36-0500 Body weight 190.96 kg Evelyn Mirtha FLOOR HAND.DIRECTOR OF INDIVIDUAL GIVING Work Phone: [facility] 01-22-2022 10:36-0500 Diastolic blood pressure 74 mm[Hg] Evelyn Mirtha FLOOR HAND.DIRECTOR OF INDIVIDUAL GIVING Work Phone: [facility] 01-22-2022 10:36-0500 Heart rate 102 /min Evelyn Mirtha FLOOR HAND.DIRECTOR OF INDIVIDUAL GIVING Work Phone: [facility] 01-22-2022 10:36-0500 Respiratory rate 16 /min Evelyn Mirtha FLOOR HAND.DIRECTOR OF INDIVIDUAL GIVING Work Phone: [facility] 01-22-2022 10:36-0500 SaO2% (BldA) [Mass fraction] 97 % Evelyn Mirtha FLOOR HAND.DIRECTOR OF INDIVIDUAL GIVING Work Phone: [facility] 01-22-2022 10:36-0500 Systolic blood pressure 136 mm[Hg] Evelyn Mirtha FLOOR HAND.DIRECTOR OF INDIVIDUAL GIVING Work Phone: [facility] 10-17-2021 08:11-0400 Body height 190.5 cm Jamee Nguyen FLOOR HAND.DIRECTOR OF INDIVIDUAL GIVING Work Phone: [facility] 10-17-2021 08:11-0400 Body weight 191.42 kg Jamee Nguyen SHAAN Work Phone: [facility] 07-09-2021 10:11-0400 Body height 190.[address] [facility] 07-09-2021 [id number] Body weight 187.[address] [facility] 06-12-2021 09:08-0400 Body mass index (BMI) [Ratio] 50 kg/m2 Dr. Sun Brar Work Phone: [facility] Work Phone: 06-12-2021 09:08-0400 Body temperature 96.2 [degF] Dr. uSn Brar Work Phone: [facility] Work Phone: 06-12-2021 09:08-0400 Diastolic blood pressure 76 mm[Hg] Dr. Sun Brar Work Phone: [facility] Work Phone: 06-12-2021 09:08-0400 Heart rate 92 /min Dr. Sun Brar Work Phone: [facility] Work Phone: 06-12-2021 09:08-0400 Systolic blood pressure 156 mm[Hg] Dr. Sun Brar Work Phone: [facility] Work Phone: 05-30-2021 13:58-0400 Body temperature 98 [degF] Dr. Sun Brar Work Phone: [facility] Work Phone: 05-30-2021 13:43-0400 Heart rate 84 /min Dr. Sun Brar Work Phone: [facility] Work Phone: 05-30-2021 13:43-0400 Respiratory rate 23 /min Dr. Sun Brar Work Phone: [facility] Work Phone: 05-30-2021 12:14-0400 Body height 190.[address] Sun Brar Work Phone: [facility] Work Phone: 05-30-2021 12:14-0400 Body mass index (BMI) [Ratio] 50.4 kg/m2 Dr. Sun Brar Work Phone: [facility] Work Phone: 05-30-2021 12:14-0400 Body weight [address] Sun Brar Work Phone: [facility] Work Phone: 05-30-2021 12:14-0400 Diastolic blood pressure 110 mm[Hg] Dr. Sun Brar Work Phone: [facility] Work Phone: 05-30-2021 12:14-0400 SaO2% (BldA) [Mass fraction] 94 % Dr. Sun Brar Work Phone: [facility] Work Phone: 05-30-2021 12:14-0400 Systolic blood pressure 145 mm[Hg] Dr. Sun Brar Work Phone: [facility] Work Phone: 05-25-2021 09:19-0400 Body mass index (BMI) [Ratio] 50 kg/m2 Dr. Sun Brar Work Phone: [facility] Work Phone: 05-25-2021 09:19-0400 Body temperature 98.3 [degF] Dr. Sun Brar Work Phone: [facility] Work Phone: 05-25-2021 09:19-0400 Diastolic blood pressure 63 mm[Hg] Dr. Sun Brar Work Phone: [facility] Work Phone: 05-25-2021 09:19-0400 Heart rate 91 /min Dr. Sun Brar Work Phone: [facility] Work Phone: 05-25-2021 09:19-0400 Respiratory rate 18 /min Dr. Sun Brar Work Phone: [facility] Work Phone: 05-25-2021 09:19-0400 Systolic blood pressure 145 mm[Hg] Dr. Sun Brar Work Phone: [facility] Work Phone: 05-18-2021 00:50-0400 Body weight 181.[address] Sun Brar Work Phone: [facility] Work Phone: 05-15-2021 09:01-0400 Body mass index (BMI) [Ratio] 50 kg/m2 Dr. Sun Brar Work Phone: [facility] Work Phone: 05-15-2021 09:01-0400 Body temperature 96.7 [degF] Dr. Sun Brar Work Phone: [facility] Work Phone: 05-15-2021 09:01-0400 Diastolic blood pressure 73 mm[Hg] Dr. Sun Brar Work Phone: [facility] Work Phone: 05-15-2021 09:01-0400 Heart rate 100 /min Dr. Sun Brar Work Phone: [facility] Work Phone: 05-15-2021 09:01-0400 Respiratory rate 18 /min Dr. Sun Brar Work Phone: [facility] Work Phone: 05-15-2021 09:01-0400 Systolic blood pressure 131 mm[Hg] Dr. Sun Brar Work Phone: [facility] Work Phone: 05-09-2021 11:45-0400 Body temperature 97.3 [degF] Sri Athy PA-C Work Phone: [facility] 05-09-2021 11:45-0400 Body weight 190.51 kg Sri Athy PA-C Work Phone: [facility] 05-09-2021 11:45-0400 Diastolic blood pressure 72 mm[Hg] Sri Athy PA-C Work Phone: [facility] 05-09-2021 11:45-0400 Heart rate 94 /min Sri Athy PA-C Work Phone: [facility] 05-09-2021 11:45-0400 Respiratory rate 16 /min Sri Athy PA-C Work Phone: [facility] 05-09-2021 11:45-0400 SaO2% (BldA) [Mass fraction] 96 % Sri Athy PA-C Work Phone: [facility] 05-09-2021 11:45-0400 Systolic blood pressure 128 mm[Hg] Sri Athy PA-C Work Phone: [facility] 05-08-2021 08:51-0400 Body height 190.[address] Sun Brar Work Phone: [facility] Work Phone: 05-08-2021 08:51-0400 Body weight 181.[address] Sun Brar Work Phone: [facility] Work Phone: 04-29-2021 11:06-0400 Body temperature 97.8 [degF] Dr. Sun Brar Work Phone: [facility] Work Phone: 04-29-2021 11:06-0400 Diastolic blood pressure 90 mm[Hg] Dr. Sun Brar Work Phone: [facility] Work Phone: 04-29-2021 11:06-0400 Heart rate 97 /min Dr. Sun Brar Work Phone: [facility] Work Phone: 04-29-2021 11:06-0400 Respiratory rate 18 /min Dr. Sun Brar Work Phone: [facility] Work Phone: 04-29-2021 11:06-0400 SaO2% (BldA) [Mass fraction] 96 % Dr. Sun Brar Work Phone: [facility] Work Phone: 04-29-2021 11:06-0400 Systolic blood pressure 135 mm[Hg] Dr. Sun Brar Work Phone: [facility] Work Phone: 04-28-2021 12:19-0500 Body weight 185.[address] Sun Brar Work Phone: [facility] Work Phone: 04-27-2021 13:12-0500 Body mass index (BMI) [Ratio] 51.1 kg/m2 Dr. Sun Brar Work Phone: [facility] Work Phone: 03-03-2021 12:47-0500 Body temperature 98.7 [degF] Dr. Sun Brar Work Phone: [facility] Work Phone: 03-03-2021 12:47-0500 Diastolic blood pressure 89 mm[Hg] Dr. Sun Brar Work Phone: [facility] Work Phone: 03-03-2021 12:47-0500 Heart rate 95 /min Dr. Sun Brar Work Phone: [facility] Work Phone: 03-03-2021 12:47-0500 Respiratory rate 16 /min Dr. Sun Brar Work Phone: [facility] Work Phone: 03-03-2021 12:47-0500 SaO2% (BldA) [Mass fraction] 99 % Dr. Sun Brar Work Phone: [facility] Work Phone: 03-03-2021 12:47-0500 Systolic blood pressure 134 mm[Hg] Dr. Sun Brar Work Phone: [facility] Work Phone: 03-03-2021 11:15-0500 Body mass index (BMI) [Ratio] 48.7 kg/m2 Dr. Sun Brar Work Phone: [facility] Work Phone: 03-03-2021 11:15-0500 Body weight 176.[address] Sun Brar Work Phone: [facility] Work Phone: Encounters Encounter Date Encounter Type Care Provider Facility Start: 07-23-2024 ambulatory Milla Siri Facility :[facility] Start: 07-07-2024 ambulatory Milla Siri [place] Start: 07-07-2024 End: 07-09-2024 Evaluation and management of inpatient Dr. Mane Del Rio MD -Medical Surgical 3 Work Phone: Start: 07-07-2024 observation encounter Grazyna CAR Work Phone: [facility] Work Phone: Start: 07-01-2024 End: 07-01-2024 Emergency department patient visit Grazyna Rangeldamon SONOGRAPHER-C Work Phone: -Emergency Department Work Phone: Start: 06-23-2024 End: 06-23-[address] Milla Horner MD -[facility] Work Phone: Start: 06-23-2024 End: 06-23-2024 ambulatory Milla Siri Facility:[facility] Start: 05-13-2024 ambulatory Millanando Griffithlay Facility :[facility] Start: 05-13-2024 Non-patient / Non-visit Dr. Karly Andrea MD -[facility] Start: 05-13-2024 End: 05-13-2024 Admission to same day surgery center Dr. Alessandro Andrea MD -Endoscopy Work Phone: Start: 05-13-2024 End: 05-13-2024 ambulatory Grazyna Rangelo SONOGRAPHER-C Work Phone: [facility] Work Phone: Start: 05-10-2024 End: 05-10-2024 ambulatory Grazyna Rangelo SONOGRAPHER-C Work Phone: [facility] Work Phone: Start: 05-10-2024 End: 05-10-[address] Eliu Benites [facility] -Laboratory, Specimen Work Phone: Start: 05-10-2024 End: 05-10-2024 ambulatory Millatasha Griffithlay Facility:[facility] Start: 03-25-2024 Non-patient / Non-visit Grazynafina Darnellpepe SONOGRAPHER-C Work Phone: -[facility] Work Phone: Start: 03-25-2024 ambulatory [facility] Start: 03-22-2024 End: 03-22-[address] Milla Horner MD -[facility] Work Phone: Start: 03-22-2024 End: 03-22-2024 ambulatory Milla Horner Facility:[facility] Start: 12-02-2023 End: 12-02-2023 ambulatory Grazyna Rangelo Facility:[facility] Start: 10-07-2023 End: 10-07-2023 ambulatory Luc Swain Facility:[facility] Start: 09-16-2023 End: 09-16-2023 ambulatory Eliu Benites Facility:[facility] Start: 08-19-2023 End: 08-19-2023 ambulatory Grazyna Esquivel Facility:[facility] Start: 05-15-2023 End: 05-15-[address] Sun Brar Work Phone: [facility] Work Phone: Start: 05-15-2023 End: 05-15-[address] Sun Brar Work Phone: [facility] Work Phone: Start: 03-24-2023 End: 03-24-[address] Sun Brar Work Phone: [facility]-Laboratory Work Phone: Start: 02-28-2023 Non-patient / Non-visit Dr. Kang Brar Work Phone: [facility] Work Phone: Start: 02-27-2023 Non-patient / Non-visit Dr. Kang Brar Work Phone: [facility] Work Phone: Start: 02-26-2023 Non-patient / Non-visit Dr. Kang Brar Work Phone: [facility] Work Phone: Start: 02-25-2023 Non-patient / Non-visit Dr. Kang Brar Work Phone: [facility] Work Phone: Start: 02-25-2023 End: 02-28-2023 Evaluation and management of inpatient Dr. Sun Brar Work Phone: [facility]-Medical Surgical 3 Work Phone: Start: 02-24-2023 Non-patient / Non-visit Dr. Kang Brar Work Phone: [facility] Work Phone: Start: 02-01-2023 End: 02-01-2023 ambulatory SUN BRAR Facility:[facility] Start: 02-01-2023 End: 02-01-2023 Emergency department patient visit [facility]-Emergency Department Work Phone: Start: 02-01-2023 End: 02-01-2023 Patient encounter procedure Javier Sanchez MD Work Phone: [facility] Comment on above: Cellulitis of left f oot (Primary Dx) Start: 09-27-2022 End: 09-27-[address] Vlad Smith Work Phone: [facility] Work Phone: Start: 09-27-2022 End: 09-27-[address] Vlad Smith Work Phone: [facility]-Laboratory Work Phone: Start: 09-21-2022 End: 09-21-2022 Emergency department patient visit SUN BRAR MD Facility:[facility] Start: 09-21-2022 End: 09-21-2022 Emergency department patient visit ISAAC BURGER MD [facility] Start: 08-11-2022 End: 08-11-[address] Vlad Smith Work Phone: [facility] Work Phone: Start: 01-22-2022 End: 01-22-2022 Patient encounter procedure Evelyn Shannon FLOOR HAND.DIRECTOR OF INDIVIDUAL GIVING Work Phone: [facility] Comment on above: Acute non-recurrent pansinusitis (Primary Dx); Acute cough Start: 12-04-2021 End: 12-04-2021 ambulatory [facility] Work Phone: Start: 12-04-2021 End: 12-04-2021 Patient encounter procedure [facility]-Laboratory, Specimen Start: 10-17-2021 End: 10-17-2021 Patient encounter procedure Jamee [place] FLOOR HAND.DIRECTOR OF INDIVIDUAL GIVING Work Phone: Urology Comment on above: Scrotal abscess Start: 07-09-2021 End: 07-09-[address] Nutrition Therapy Comment on above: Patient Education; A ssessment Start: 06-15-2021 End: 06-15-2021 ambulatory Telly Salcedo PT Work Phone: [facility] Comment on above: Hamstring strain, ri ght, subsequent encounter (Primary Dx) Start: 06-13-2021 End: 06-13-2021 ambulatory Telly Salcedo PT Work Phone: [facility] Comment on above: Hamstring strain, ri ght, subsequent encounter (Primary Dx) Start: 06-12-2021 End: 06-12-[address] Sun Brar Work Phone: [facility] Start: 05-31-2021 End: 05-31-2021 ambulatory Telly Salcedo PT Work Phone: [facility] Comment on above: Hamstring strain, ri ght, subsequent encounter (Primary Dx) Start: 05-30-2021 End: 05-30-2021 Emergency department patient visit Dr. Sun Brar Work Phone: [facility] Start: 05-25-[address] Viktoriya Brar Work Phone: [facility] Start: 05-23-2021 End: 05-23-2021 ambulatory Telly Salcedo PT Work Phone: [facility] Comment on above: Hamstring strain, ri ght, subsequent encounter (Primary Dx) Start: 05-18-2021 End: 05-18-2021 Patient encounter procedure Kali Caceres DO Work Phone: [facility] [place] Comment on above: Hamstring strain, ri ght, subsequent encounter (Primary Dx) Start: 05-15-2021 End: 05-17-[address] Sun Brar Work Phone: [facility] Start: 05-10-2021 Telephone encounter Erlinda Staton APRN.CNP Work Phone: [facility] Comment on above: Results Start: 05-09-2021 End: 05-09-2021 Subsequent hospital visit by physician Xr [facility] Work Phone: Radiology Comment on above: Right leg pain [M79. 604] Start: 05-09-2021 Telephone encounter Sri lozano PA-C Work Phone: [facility] Comment on above: Results Start: 05-09-2021 End: 05-09-2021 Patient encounter procedure Sri Robbins PA-C Work Phone: [facility] Comment on above: Right leg pain (Prim sarahy Dx) Start: 04-29-2021 Non-patient / Non-visit Dr. Kang Brar Work Phone: [facility] Start: 04-28-2021 Non-patient / Non-visit Dr. Kang Brar Work Phone: [facility] Start: 04-27-2021 Non-patient / Non-visit Dr. Kang Brar Work Phone: [facility] Start: 04-27-2021 End: 04-29-2021 Evaluation and management of inpatient Dr. Sun Brar [facility] Start: 03-03-2021 End: 03-03-[address] Sun Brar Work Phone: [facility] 3 Outp Start: 02-03-2020 End: 02-03-2020 Patient encounter procedure AVANI MARROQUIN [facility] Procedures Date Procedure Procedure Detail Performing Clinician Start: 07-07-2024 Plain X-ray of tibia and fibula Grazyna Rangelo SONOGRAPHER-C Work Phone: Start: 07-07-2024 Urnls dip stick/tabl et reagent auto microscopy Grazyna Rangelo SONOGRAPHER-C Work Phone: Start: 07-07-2024 Plain chest X-ray Grazyna Rangelo SONOGRAPHER-C Work Phone: Start: 07-07-2024 Estimated creatinine clearance Grazyna Ferconsueloo SONOGRAPHER-C Work Phone: Start: 07-01-2024 Plain X-ray of tibia and fibula Grazynafina Rangelo SONOGRAPHER-C Work Phone: Start: 07-01-2024 X-ray of ankle, thre e or more views Grazynafina Rangelo SONOGRAPHER-C Work Phone: Start: 05-13-2024 Colonoscopy Grazynafina Garnett margaret SONOGRAPHER-C Work Phone: Start: 05-10-2024 Gram stain microscopy E erica Rangelo SONOGRAPHER-C Work Phone: Start: 05-10-2024 End: 05-10-2024 Microbial culture, routine Grazyna Rangelo SONOGRAPHER-C Work Phone: Start: 02-25-2023 X-ray of both feet Dr. Sun Brar Work Phone: Start: 02-25-[address] Jamia Brar Work Phone: Start: 02-25-2023 Acid fast bacilli culture Dr. Sun Brar Work Phone: Start: 02-25-[address] Sun Brar Work Phone: Start: 02-25-2023 Cytopathology proced ure, preparation of smear, genital source Dr. Sun Brar Work Phone: Start: 02-25-[address] Sun Brar Work Phone: Start: 02-25-2023 Investigation of transfusion reaction Dr. Sun Brar Work Phone: Start: 02-25-2023 Microbial culture, routine Dr. Sun Brar Work Phone: Start: 02-25-[address] Kang Brar Work Phone: Start: 02-24-2023 MRI of lower extremity Dr. Sun Brar Work Phone: Start: 02-01-2023 X-ray of both feet Start: 02-01-2023 Radiography of ankle Start: 05-30-2021 Bacteria identified in Blood by Culture Dr. Sun Brar Work Phone: Start: 05-09-2021 Radiologic examinati on femur minimum 2 views Sri Robbins PA-C Work Phone: Start: 04-27-2021 Investigation of transfusion reaction Dr. Sun Brar Work Phone: Start: 04-27-2021 Microbial culture, routine Dr. Sun Brar Work Phone: Start: 04-27-2021 X-ray of both feet Dr. Sun Brar Work Phone: Investigation of transfusion reaction Microbial culture, routine Plan of Treatment Date Care Activity Detail Author Start: 07-07-2024 Bacteria identified in Blood by Culture Blood Culture [facility] Start: 07-07-2024 Bacteria identified in Urine by Culture Urine Culture [facility] Start: 07-07-2024 Hospital admission, emergency, from emergency room, medical nature [facility] Start: 07-07-2024 Verification routine [facility] Start: 07-07-2024 Admission procedure [facility] Start: 07-07-2024 [facility] Start: 07-07-2024 End: 07-07-2024 [facility] Start: 07-01-2024 [facility] Start: 05-13-2024 Colsc flx w/rmvl of tumor polyp lesion snare tq COLONOSCOPY W/LESION REMOVAL [facility] Start: 05-13-2024 Patient discharge [place] Start: 05-10-2024 [facility] Start: 05-10-2024 Microbial culture, routine Wound Culture [facility] Start: 03-22-2024 Patient referral [facility] Work Phone: Start: 05-15-2023 Patient referral [facility] Work Phone: Start: 03-01-2023 [facility] Start: 02-28-2023 Patient discharge [place] Start: 02-27-2023 [facility] Start: 02-27-2023 End: 02-27-2023 Application of intermittent pneumatic compression device [facility] Start: 02-26-2023 Referral to service [facility] Start: 02-26-2023 Inhalation therapy procedure [facility] Start: 02-25-2023 Elevation of affecte d extremity [facility] Start: 02-25-2023 [facility] Start: 02-25-2023 Anaerobic microbial culture Anaerobic Culture [facility] Start: 02-25-2023 Admission procedure [facility] Start: 02-24-2023 End: 02-25-2023 [facility] Start: 02-24-2023 Patient referral to dietitian [facility] Start: 02-24-2023 End: 02-24-2023 Consultation [facility] Start: 02-24-2023 Wound care [facility] Start: 02-24-2023 Vital signs measurements [facility] Start: 02-24-2023 Consultation for treatment [facility] Start: 02-24-2023 Admission procedure [facility] Start: 02-24-2023 Following clinical pathway protocol [facility] Start: 02-24-2023 Patient referral to dietitian [facility] Start: 02-01-2023 [facility] Start: 10-18-2022 Influenza vaccination Influenza Vacc ine (#1) [facility] Start: 02-17-2022 Depression Assessment Depression Ass [facility] Start: 10-18-2021 Influenza vaccination [facility] Start: 05-30-2021 Bacteria identified in Blood by Culture Blood Culture [facility] Work Phone: Start: 02-17-2021 DEPRESSION ASSESSMENT DEPRESSION ASS [facility] Start: 10-18-2020 Influenza vaccination INFLUENZA (#1) [facility] Start: 08-04-2020 COLOGUARD (FIT-DNA) COLOGUARD (FIT-D NA) [facility] Start: 08-04-2020 Colonoscopy COLONOSCOPY [facility] Start: 08-04-2020 COLORECTAL CANCER SCREENING COLORECTAL CANCER SCREENING [facility] Start: 08-04-[address] COLONOGRAPHY [facility] Start: 08-04-2020 DIABETES SCREEN DIABETES SCREEN [facility] Start: 08-04-2020 Diabetes Screening Diabetes Screenin g [facility] Start: 08-04-2020 FECAL OCCULT BLOOD FECAL OCCULT BLOO D [facility] Start: 08-04-2020 Screening for malign ant neoplasm of colon [facility] Start: 08-04-2020 SIGMOIDOSCOPY SIGMOIDOSCOPY [facility] Start: 08-04-2010 Lipid panel Lipid Screening [facility] Start: 08-04-2010 LIPID SCREEN LIPID SCREEN [facility] Start: 08-04-1994 Urine microalbumin profile [facility] Start: 08-04-1993 HEPATITIS C SCREENING HEPATITIS C [facility] Start: 08-04-1993 Hepatitis C screening Hepatitis C [facility] Start: 08-04-1993 HIV SCREENING HIV SCREENING [facility] Start: 08-04-1993 HIV screening HIV Screening [facility] Start: 1987 Adult depression screening assessment DEPRESSION SCREENING [facility] Start: 08-04-1980 COVID-19 VACCINE (#1) COVID-19 VACCI NE (#1) [facility] Start: 08-04-1980 COVID-19 VACCINE (1) COVID-19 VACCIN E (1) [facility] Start: 02-04-1976 COVID-19 VACCINE (#1) COVID-19 VACCI NE (#1) [facility] Start: 1975 HEPATITIS B (1 of 3 - 3-dose series) HEPATITIS B (1 of 3 - 3-dose series) [facility] Start: 1975 Hepatitis B Vaccine (1 of 3 - 3-dose series) Hepatitis B Vaccine (1 of 3 - 3-dose series) [facility] Acid fast bacilli culture [facility] Colonoscopy [facility] Mycobacterium sp identified in Unspecified specimen by Organism specific culture [facility] Patient Education [facility] Work Phone: Patient referral [facility] Work Phone: PT PLAN OF CARE CERTIFICATION PT PLAN OF CARE CERTIFICATION Procedures Routine Hamstring strain, right, subsequent encounter Ordered: 05/23/2021 [facility] Work Phone: Comment on above: Ordered: 05/23/2021 Urine culture [facility] US LEG VEIN DVT [facility] US LEG VEIN DVT [facility] Vascular Lab STAT Right leg pain 05/09/2021 3:30 PM EDT [facility] Work Phone: [facility] Payers Date Payer Category Payer Self-pay [id number] 2022 Unknown [id number] 2022 Unknown AULTCARE AULTCAR E [employer] [id number] 2022-[facility] [phone] [address] [place] [address] PPO [id number] 2021 Medicaid [employer] [employer] [place] [employer] [id number] 2021-Present [phone] [address] [place] [address] Medicaid [id number] 2021 Medicaid [place] [employer] [place] [id number] 2021-Present [phone] [address] [place] [address] Medicaid [id number] 2015 Unknown [id number] 1975 Unknown [id number] 51 1975 Unknown [id number] [id number] 27 Private Health [id number] Unknown [id number] Unknown [id number] [id number] 62 Unknown [id number] 2.16.840.1.150583.3.579.2.4 62 Unknown [id number] 2.16.840.1.082812.3.579.2.4 62 Unknown [id number] 2.16.840.1.469591.3.579.2.4 62 Unknown [id number] 2.16.840.1.137213.3.579.2.4 62 Unknown [id number] 2.16.840.1.127921.3.579.2.4 62 Unknown [id number] 2.16.840.1.940209.3.579.2.4 62 Unknown [id number] 2.16.840.1.061672.3.579.2.4 62 Unknown [id number] 2.16.840.1.797406.3.579.2.4 62 Unknown [id number] 2.16.840.1.841156.3.579.2.4 62 Unknown [id number] 2.16.840.1.737438.3.579.2.4 62 Unknown [id number] 2.16.840.1.259111.3.579.2.4 62 Unknown [id number] 2.16.840.1.176898.3.579.2.4 62 Unknown [id number] 2.16.840.1.328462.3.579.2.4 62 Unknown [id number] [id number] 62 Unknown [id number] 62 Social History Date Type Detail Facility Start: 02-01-2019 End: 07-07-2024 Tobacco smoking status NVIS Ex-smoker [facility] Work Phone: End: 02-02-2004 History of tobacco use Current smoker [facility] Work Phone: Start: 02-01-2019 End: 01-26-2020 Cigarettes smoked current (pack per day) - Reported 1 [facility] Start: 02-01-2019 Tobacco use and exposure User of smokeless tobacco [facility] Work Phone: History of tobacco use Chews Tobacco [facility] Work Phone: Start: 05-09-2021 End: 02-01-2023 Alcohol intake Current drinker of alcohol (finding) [facility] Start: 1975 Sex Assigned At Male C [facility] Start: 04-29-2021 End: 10-17-2021 Exposure to SARS-CoV-2 (event) Not sure [facility] Start: 05-08-2021 End: 02-01-2023 Tobacco smoking status NHIS Unknown if ever smoked [facility] Start: 07-25-2019 Occasional [facility] Start: 07-24-2019 None [facility] Start: 07-24-2019 Spouse/ Signif icant Other [facility] Start: 07-25-2019 Non-smoker [facility] Start: 02-01-2019 End: 10-11-2021 Tobacco use and exposure Former smokeless tobacco user [facility] Work Phone: End: 02-02-2004 History of tobacco use Cigarette Smoker [facility] Tobacco smoking status No Smokin g Status Entered [facility] Start: 01-26-2020 End: 02-01-2023 Tobacco use panel [facility] National Score (1-10 0), lower number is lower risk Not on file [facility] Start: 02-26-2021 Gender identity Identifies as male gender (finding) [facility] Start: 05-13-2024 End: 05-17-2024 Sex Male (finding) [facility] Sexual Orientation Heterosexual (finding) [facility] Medical Equipment Procedure Code Equipment Code Equipment Origin al Text Equipment Identifier Dates Arthroplasty, toe 2.5 SCREW MICR O COMP SCREW FDA Start: 06-11-2019 Arthroplasty, toe 2.5 SCREW MICR O COMP SCREW FDA Start: 06-11-2019 Arthroplasty, toe K-WIRE,.062 X 4 DBL [place] FDA Start: 06-11-2019 Arthroplasty, toe PIN,3/32 X 9 D [place] FDA Start: 06-11-2019 Arthroplasty, toe 2.5 SCREW MICR O COMP SCREW FDA Start: 06-11-2019 Arthroplasty, toe 2.5 SCREW MICR O COMP SCREW FDA Start: 06-11-2019 Arthroplasty, toe K-WIRE,.062 X 4 DBL [place] FDA Start: 06-11-2019 Arthroplasty, toe PIN,3/32 X 9 D BL [place] FDA Start: 06-11-2019 Arthroplasty, toe 2.5 SCREW MICR O COMP SCREW FDA Start: 06-11-2019 Arthroplasty, toe 2.5 SCREW MICR O COMP SCREW FDA Start: 06-11-2019 Arthroplasty, toe K-WIRE,.062 X 4 DBL [place] FDA Start: 06-11-2019 Arthroplasty, toe PIN,3/32 X 9 D [facility] FDA Start: 06-11-2019 Arthroplasty, toe 2.5 SCREW MICR O COMP SCREW FDA Start: 06-11-2019 Arthroplasty, toe 2.5 SCREW MICR O COMP SCREW FDA Start: 06-11-2019 Arthroplasty, toe K-WIRE,.062 X 4 DBL [place] FDA Start: 06-11-2019 Arthroplasty, toe PIN,3/32 X 9 D [facility] FDA Start: 06-11-2019 Arthroplasty, toe 2.5 SCREW MICR O COMP SCREW FDA Start: 06-11-2019 Arthroplasty, toe 2.5 SCREW MICR O COMP SCREW FDA Start: 06-11-2019 Arthroplasty, toe K-WIRE,.062 X 4 DBL [place] FDA Start: 06-11-2019 Arthroplasty, toe PIN,3/32 X 9 D [facility] FDA Start: 06-11-2019 Arthroplasty, toe 2.5 SCREW MICR O COMP SCREW FDA Start: 06-11-2019 Arthroplasty, toe 2.5 SCREW MICR O COMP SCREW FDA Start: 06-11-2019 Arthroplasty, toe K-WIRE,.062 X 4 DBL [place] FDA Start: 06-11-2019 Arthroplasty, toe PIN,3/32 X 9 D [facility] FDA Start: 06-11-2019 Arthroplasty, toe 2.5 SCREW MICR O COMP SCREW FDA Start: 06-11-2019 Arthroplasty, toe 2.5 SCREW MICR O COMP SCREW FDA Start: 06-11-2019 Arthroplasty, toe K-WIRE,.062 X 4 DBL [place] FDA Start: 06-11-2019 Arthroplasty, toe PIN,3/32 X 9 D [facility] FDA Start: 06-11-2019 Arthroplasty, toe 2.5 SCREW MICR O COMP SCREW FDA Start: 06-11-2019 Arthroplasty, toe 2.5 SCREW MICR O COMP SCREW FDA Start: 06-11-2019 Arthroplasty, toe K-WIRE,.062 X 4 DBL [place] FDA Start: 06-11-2019 Arthroplasty, toe PIN,3/32 X 9 D [facility] FDA Start: 06-11-2019 Arthroplasty, toe 2.5 SCREW MICR O COMP SCREW FDA Start: 06-11-2019 Arthroplasty, toe 2.5 SCREW MICR O COMP SCREW FDA Start: 06-11-2019 Arthroplasty, toe K-WIRE,.062 X 4 DBL [place] FDA Start: 06-11-2019 Arthroplasty, toe PIN,3/32 X 9 D [facility] FDA Start: 06-11-2019 Arthroplasty, toe 2.5 SCREW MICR O COMP SCREW FDA Start: 06-11-2019 Arthroplasty, toe 2.5 SCREW MICR O COMP SCREW FDA Start: 06-11-2019 Arthroplasty, toe K-WIRE,.062 X 4 DBL [place] FDA Start: 06-11-2019 Arthroplasty, toe PIN,3/32 X 9 D [facility] FDA Start: 06-11-2019 Arthroplasty, toe 2.5 SCREW MICR O COMP SCREW FDA Start: 06-11-2019 Arthroplasty, toe 2.5 SCREW MICR O COMP SCREW FDA Start: 06-11-2019 Arthroplasty, toe K-WIRE,.062 X 4 DBL [place] FDA Start: 06-11-2019 Arthroplasty, toe PIN,3/32 X 9 D [facility] FDA Start: 06-11-2019 Arthroplasty, toe 2.5 SCREW MICR O COMP SCREW FDA Start: 06-11-2019 Arthroplasty, toe 2.5 SCREW MICR O COMP SCREW FDA Start: 06-11-2019 Arthroplasty, toe K-WIRE,.062 X 4 DBL [place] FDA Start: 06-11-2019 Arthroplasty, toe PIN,3/32 X 9 D [facility] FDA Start: 06-11-2019 Blood Sugar Diagnostic (Contour Test Strips) strip Start: 05-20-2023 Blood Sugar Diagnostic (Contour Test Strips) strip Start: 01-14-2024 Blood Sugar Diagnostic (Contour Test Strips) strip Start: 05-20-2023 End: 01-14-2024 Insulin Syr/Ndl U100 Half Jah 0.3 mL 31 gauge x 15/64 syringe Start: 02-28-2023 End: 08-19-2023 Blood Sugar Diagnostic (Contour Test Strips) strip Start: 01-14-2024 Blood Sugar Diagnostic (Contour Test Strips) strip Start: 05-20-2023 End: 01-14-2024 Insulin Syr/Ndl U100 Half Jah 0.3 mL 31 gauge x 15/64 syringe Start: 02-28-2023 End: 08-19-2023 Blood Sugar Diagnostic (Contour Test Strips) strip Start: 01-14-2024 Blood Sugar Diagnostic (Contour Test Strips) strip Start: 05-20-2023 End: 01-14-2024 Insulin Syr/Ndl U100 Half Jah 0.3 mL 31 gauge x 15/64 syringe Start: 02-28-2023 End: 08-19-2023 Blood Sugar Diagnostic (Contour Test Strips) strip Start: 01-14-2024 Blood Sugar Diagnostic (Contour Test Strips) strip Start: 05-20-2023 End: 01-14-2024 Insulin Syr/Ndl U100 Half Jah 0.3 mL 31 gauge x 15/64 syringe Start: 02-28-2023 End: 08-19-2023 Goals Date Patient Goal Desired Activity /State Functional Status Date Assessment Result Facility 02-28-2023 Functional status Up ad juliana [facility] Work Phone: 09-21-2022 Functional Status Independent [facility] 04-29-2021 Functional status Chair [facility] Work Phone: 04-28-2021 Functional status None [facility] Work Phone: Mental Status Date Assessment Result Facility 05-13-2024 Cognitive function Voice/Name [facility] Work Phone: 02-28-2023 Cognitive function Appropriate;Cooperativ e [facility] Work Phone: 02-27-2023 Cognitive function Arousable To Voice/Nam e [facility] Work Phone: 02-01-2023 Cognitive function Level Of Cons ciousness Awake;Alert;Appropriate;Follow s Commands [facility] Work Phone: 09-21-2022 Mental Status Orientation Oriented x 4 [facility] 04-29-2021 Cognitive function Voice/Name [facility] Work Phone: 03-03-2021 Cognitive function Voice/Name;To uch/Shaking;Light Pain;Deep Pain [facility] Work Phone: Clinical Notes 05-09-2021 to 07-09-2024 Note Date & Type Note Facility 07-09-2024 Note [facility] Medical Records Department [address] [place] [address] Discharge Summary 07/09/24 1402 MR#: [id number] Acct: [id number] Name: HOMER DUMAS Rep #: [id number] : 1975 48 From: Mane Del Rio MD PCP: Dr. Milla Horner MD Status:ADM IN Location: [place] [address]1 Providers Date of Admission: 07/07/24 Primary Care Physician: Dr. Milla Horner MD Consultations 07/07/24 15:58 Consult: Podiatry Routine Consulting Provider: Eliu Benites Reason for Consult: Bilateral foot wounds, was to see patient in office today EMERGENT Consult: No MD Notified: Yes Date Notified: 07/07/24 Time Notified: 16:50 Method of Notification: Text 07/08/24 10:49 Consult: Infectious Disease Routine Consulting Provider: Maksim Albright Reason for Consult: Left toe infection/osteo EMERGENT Consult: No MD Notified: Yes Date Notified: 07/08/24 Time Notified: 10:57 Method of Notification: Text Consult: Onc/Wound/licensed psychologist manager Routine Comment: Reason For Visit: CELLULITIS Diagnosis Discharge Diagnosis (1) Left leg cellulitis: Status: Acute Code(s): L03.116 - Cellulitis of left lower limb (2) Hammertoe of left foot: Status: Acute Code(s): M20.42 - Other hammer toe(s) (acquired), left foot (3) Diabetes mellitus with diabetic polyneuropathy: Status: Acute Code(s): E11.42 - Type 2 diabetes mellitus with diabetic polyneuropathy (4) Type 2 diabetes mellitus with foot ulcer: Status: Acute Code(s): E11.621 - Type 2 diabetes mellitus with foot ulcer; L97.509 - Non-pressure chronic ulcer of other part of unspecified foot with unspecified severity (5) Traumatic tear of right anterior tibialis tendon: Status: Acute Code(s): S86.211A - Strain of muscle(s) and tendon(s) of anterior muscle group at lower leg level, right leg, initial encounter Medications at Discharge Home Medications alfuzosin 10 mg tablet,extended release 24 hr 10 mg PO DAILY 01/08/24 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 sensor (FreeStyle Zya 3 Sensor device) #4 ea 05/15/23 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,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,cont (FreeStyle Zay 3 Ubly) #1 ea 05/15/23 alcohol swabs (Alcohol Prep Pads) 1 pad topical .PRN #200 ea 01/14/24 blood sugar diagnostic (Contour Test Strips) #100 ea 01/14/24 multivitamin 1 tab PO QDAY 03/25/24 semaglutide 2 mg/dose (8 mg/3 mL) subcutaneous pen injector 2 mg (0.75 mL) subcut QWEEK #3 mL 06/23/24 metformin 500 mg tablet 500 mg PO DAILY #90 TABLETS 07/06/24 amoxicillin 875 mg-potassium clavulanate 125 mg tablet 1 tab PO BID #14 tabs 07/09/24 doxycycline monohydrate 100 mg capsule 100 mg PO BID #14 caps 07/09/24 Hospital Course Operations - (Partial left 3rd toe amputation) Procedures None Summary of Care Provided Minutes Spent on Discharge: 33 Hospital Course: Per HPI: HOMER UDMAS, is a 48 M who presents to the hospital with fever and chills at home. He was seen in the hospital about a week ago for a right sprained ankle after he jumped into a ditch at home and then was found to have a left sided cellulitis so he was sent home on Keflex. He did feel better initially and then progressively got worse today where he had slightly elevated temperature to 99 degrees and had some rigors and chills. He does have a leukocytosis this admission to 12.1 unfortunately no CBC was obtained during his ER visit as that was primarily for his right ankle strain at that time. ESR and CRP were slightly elevated so an x-ray was taken of his left lower extremity that showed a possible osteomyelitis of the fibula which is old but hide so he was on broad antibiotics with the plan to obtain an MRI. Hospital Course: 1. Osteomyelitis of the left third toe in the setting of type 2 diabetes???48-year-old male presented to the hospital with signs and symptoms consistent with left toe infection. He had had cellulitis diagnosed a week earlier on his left lower extremity after he presented to the hospital for a right ankle sprain after jumping to the ditch at work. The cellulitis had resolved but he developed chills and a leukocytosis when he came back to the hospital was noted that he had what looked like possible cellulitis of his left toe. MRI was obtained and demonstrated osteomyelitis of the left toe so podiatry was consulted and they performed a partial third toe amputation on the left foot. Infectious disease was consulted recommended Doxy 100 mg p.o. twice daily as well as Augmentin twice daily for 1 week. There were clearance cultures obtained so if these are negative then once he completes his weeklong antibiotic course he should be fine however he will follow-up with podiatry on Friday and if the clearance cultures are growing then antibiotics will be adjusted and he will need to follow-up with infectious disease as an outpatient. Discussed with him plan for discharge today as per his understanding the risks and bene (more content not included)... [facility] 07-07-2024 Note [facility] Medical Records Department [address] [place] [address] Consultation 07/07/241945 MR#: [id number] Acct: [id number] Name: HOMER DUMAS Rep #: [id number] : 1975 48 From: Eliu Benites DPM PCP: Dr. Milla Horner MD Status:ADM NAV Location: [place] [id number] Assessment Plan Assessment/Plan (1) Left leg cellulitis: (2) Hammertoe of left foot: (3) Diabetes mellitus with diabetic polyneuropathy: (4) Type 2 diabetes mellitus with foot ulcer: (5) Traumatic tear of right anterior tibialis tendon: PLAN: Plan Evaluation performed. Reviewed diagnostic data. There is ulceration lfet 3rd toe with signs/symptoms of infection. Ordered left foot xrays, 3 views, as well as MRI for further evaluation. Discussed possible amputation of toe pending results. Left 3rd toe ulceration was debrided in excisional fashion using a 15 blade removing nonviable tissue down to and including subcutaneous tissue. A culture was obtained and sent to microbiology. Betadine soln and gauze dressing was applied. Keep clean, dry and intact. No weightbearing left 3rd toe. Patient is on IV antibiotics Vancomycin and Unasyn. Due to findings and concern about right anterior tibial tendon, ordered MRI for further evaluation. Discussed with Dr. Del Rio. Thank you for consultation. Podiatry will continue to follow. HPI Consult Data Date of Consult: 07/07/24 HPI Narrative Reason for Consultation: infection left lower extremity, injury right ankle HPI Narrative: HOMER DUMAS, is a 48 M who presented to ER today with fever, chills and malaise. WBC noted to be elevated. Patient relates to injury to right ankle last week, went to ER had xrays. No acute fractures noted. He is concerned about a possible torn tendon, he had similar injury years ago where he ruptured left anterior tibial tendon requiring repair. He relates ankle was feeling better but still not normal, but relates he has developed fever, chills and not feeling good at all, and has cellulitis left lower extremity. There were some abnormal findings to his left fibula on xrays and MRI was obtained. Podiatry was consulted by [facility] for further evaluation. [facility] Medical History (Updated 07/07/24 @ 19:[address] Eliu Benites, DPM) Acute osteomyelitis of toe of left foot Wears glasses Open wound Diabetes Arthritis Family history of malignant neoplasm of colon in father 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 Hyperglycemia Cellulitis of right lower extremity Former smoker COVID-19 Morbid obesity Home Medications ???Medication ???Instructions ???Recorded ???Last Taken ???Type alfuzosin 10 mg tablet,extended 10 mg PO DAILY 02/24/23 05/12/24 H istory release 24 hr 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 sensor (FreeStyle #4 ea 05/15/23 Unknown Rx Zay 3 Sensor device) 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,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,cont #1 ea 05/15/23 Unknown Rx (FreeStyle Zay 3 Ubly) alcohol swabs (Alcohol Prep Pads) 1 pad topical .PRN #200 ea Unknown Rx blood sugar diagnostic (Contour #100 ea 01/14/24 Unknown Rx Test Strips) multivitamin 1 tab PO QDAY 03/25/24 05/10/24 Hi story semaglutide 2 mg/dose (8 mg/3 mL) 2 mg (0.75 mL) subcut QWEEK #3 mL 06/23/24 Unknown Rx subcutaneous pen injector cephalexin 500 mg capsule 500 mg PO Q6 #40 CAPSULES 07/01/24 Unknown Rx metformin 500 mg tablet 500 mg PO DAILY #90 TABLETS Unknown Rx Allergy/AdvReac Type Severity Reaction Status Date / Time No Known Allergies Allergy Verified 07/07/24 08:59 Family History Father Colon cancer, Onset Age: 40 Diabetes Skin cancer Mother Hypertension Surgical History Hx of amputation of lesser toe History of tonsillectomy Hx of foot surgery History of ankle surgery Social History adopted: No household members: significant other current occupational status: 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 current occupational exposures/hazards: No pets and animals: Yes pets and animals: dog(s) history of recent travel: No sexually active: Yes Smoking Status: Former smoker quit date: 02/18/04 pack-years: 10 Tobacco: How many years used: 10 Smokeless tobacco user: other second hand exposure: No alcohol intake: current alcohol intake frequency: holidays/special occasions only substance use type: does not use well-balanced diet: daily or most days caffeine: Yes eating out: 1-3 times/week during the past year weight has: decreased > 10 lbs frequency: 1-2 times per week duration: 15-30 minutes/day ethan/methodist: Advent seatbelt use: always (more content not included)... [facility] 07-07-2024 Discharge summary [facility] 07-07-2024 Radiology Diagnostic study note [facility] Imaging Services [address] [place] [address] Tibia & Fibula 2 Views MR#: [id number] Acct: [id number] Name: HOMER DUMAS Rep #: [id number] : 1975 M 48 From: Mohsen Vee MD PCP: Dr. Milla Horner MD Status: ADM NAV Study:Tibia & Fibula 2 Views Date of Exam: 07/07/24 Exam# [id number] Ordering Dr: Ismael Ling MD EXAM: Left tibia and fibula. CLINICAL HISTORY: Pain and swelling. Cellulitis. COMPARISON: No prior study. TECHNIQUE: Four views were obtained. FINDINGS: There is a 6.1 mm x 11.4 mm endosteal expansion of the midshaft of the fibula with cortical thinning. Osteomyelitis or possible mass lesion should be ruled out. Degenerative changes of the talocalcaneal joint as well as the tarsal joints. Diffuse soft tissue swelling. RAD/Tibia & Fibula 2 Views IMPRESSION: Abnormal finding in the midportion of the fibula as described. Correlation witha bone scan is recommended. Soft tissue swelling. Degenerative changes of the hindfoot. Reading Location: [place] [address] CC: Dr. Ismael Ling MD; Dr. Milla Horner MD ~ Credit Compliance Officer: Signed [facility] 07-07-2024 Radiology Diagnostic study note [facility] Imaging Services [address] [place], [place] [id number] Chest 1 View (Portable) MR#: [id number] Acct: [id number] Name: HOMER DUMAS Rep #: [id number] : 1975 M 48 From: Marsha Arboleda MD PCP: Dr. Milla Horner MD Status: REG ER Study:Chest 1 View (Portable) Date of Exam: 07/07/24 Exam# [id number] Ordering Dr: Ismael Ling MD EXAM: XR Chest, 1 View CLINICAL INDICATION: TACHYCARDIA TECHNIQUE: Frontal view of the chest. COMPARISON: No relevant prior studies available. FINDINGS: LUNGS AND PLEURAL SPACES: Unremarkable. No consolidation. No pneumothorax. HEART: Unremarkable. No cardiomegaly. MEDIASTINUM: Unremarkable. Normal mediastinal contour. BONES/JOINTS: Unremarkable. No acute fracture. RAD/Chest 1 View (Portable) IMPRESSION: No acute cardiopulmonary process. Reading Location: [facility] CC: Dr. Ismael Ling MD; Dr. Milla Horner MD ~ Credit Compliance Officer: Signed [facility] 07-01-2024 Radiology Diagnostic study note [facility] Imaging Services [address] [place], [place] [id number] Ankle min 3 Views MR#: [id number] Acct: [id number] Name: HOMER DUMAS Rep #: [id number] : 1975 M 48 From: Mohsen Vee MD PCP: Dr. Milla Horner MD Status: PRE ER Study:Ankle min 3 Views Date of Exam: Exam# [id number] Ordering Dr: Akil ,Ed P. PROCEDURE: ANKLE MIN 3 VIEWS 07/01/2024 REASON FOR EXAM: INJURY TECHNIQUE: 3 views of the right ankle COMPARISON: None FINDINGS: Bones: Old avulsion fracture of the medial malleolus. Calcaneal spurs. Joints: Degenerative changes of the tarsal bones. Soft tissues: Soft tissue swelling. Other: RAD/Ankle min 3 Views IMPRESSION: Degenerative changes. Calcaneal spurs. Reading Location: [id number] CC: Dr. Milla Horner MD; ED PHYSICIAN PROVIDER ~ Credit Compliance Officer: Signed [facility] 07-01-2024 Radiology Diagnostic study note [facility] Imaging Services [address] [place] [id number] Tibia & Fibula 2 Views MR#: [id number] Acct: [id number] Name: HOMER DUMAS Rep #: [id number] : 1975 M 48 From: Mohsen Vee MD PCP: Dr. Milla Horner MD Status: PRE ER Study:Tibia & Fibula 2 Views Date of Exam: 07/01/24 Exam# [id number] Ordering Dr: Akil ,Ed P. EXAM: Right tibia and fibula. CLINICAL HISTORY: Pain following injury. COMPARISON: None TECHNIQUE: Four views were obtained. FINDINGS: Old avulsion fracture of the medial malleolus. Calcaneal spur. Degenerative changes of the tail 0 cuboid bone. RAD/Tibia & Fibula 2 Views IMPRESSION: No acute abnormality is seen. Reading Location: [facility] CC: Dr. Milla Horner MD; ED PHYSICIAN PROVIDER ~ Credit Compliance Officer: Signed [facility] 05-13-2024 Consult note [facility] 05-13-2024 Procedure note [facility] 05-13-2024 Procedure note [facility] 05-13-2024 History and physi allie note [facility] 05-13-2024 Note [facility] Medical Records Department [address] [place] [address] History Physical Exam 05/13/24 0724 MR#: [id number] Acct: [id number] Name: HOMER DUMAS Rep #: [id number] : 1975 48 From: Alessandro Andrea MD PCP: Dr. Milla Horner MD Status:[facility] Location: [place] [address] HPI - General HPI Narrative HOMER DUMAS, is a 48 M who presents for screening colonoscopy. This is his first colonoscopy. He does have family history of colon cancer in his father at a young age. He reports no abdominal pain or blood in the stool. 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 Hyperglycemia Cellulitis of right lower extremity Former smoker COVID-19 Morbid obesity Home Medications ???Medication ???Instructions ???Recorded ???Last Taken ???Type alfuzosin 10 mg tablet,extended 10 mg PO DAILY 02/24/23 05/12/24 H istory release 24 hr 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 meter,continuous #1 ea 05/15/23 Unknown Rx (FreeStyle Zay 3 Ubly) 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 sensor (FreeStyle #4 ea 05/15/23 Unknown Rx Zay 3 Sensor device) alcohol swabs (Alcohol Prep Pads) 1 pad topical .PRN #200 ea Unknown Rx blood sugar diagnostic (Contour #100 ea 01/14/24 Unknown Rx Test Strips) metformin 500 mg tablet 500 mg PO QDAY #90 tabs 01/14/24 0 05/12/24 Rx multivitamin 1 tab PO QDAY 03/25/24 05/10/24 Hi story semaglutide 2 mg/dose (8 mg/3 mL) 2 mg (0.75 mL) subcut QWEEK #3 mL 04/12/24 05/01/24 Rx subcutaneous pen injector Allergy/AdvReac Type Severity Reaction Status Date / Time No Known Allergies Allergy Verified 05/13/24 06:38 Family History Father Colon cancer, Onset Age: 40 Diabetes Skin cancer Mother Hypertension Surgical History Hx of amputation of lesser toe History of tonsillectomy Hx of foot surgery History of ankle surgery Social History adopted: No household members: significant other current occupational status: 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 current occupational exposures/hazards: No pets and animals: Yes pets and animals: dog(s) history of recent travel: No sexually active: Yes Smoking Status: Former smoker quit date: 02/18/04 pack-years: 10 Tobacco: How many years used: 10 Smokeless tobacco user: other second hand exposure: No alcohol intake: current alcohol intake frequency: holidays/special occasions only substance use type: does not use well-balanced diet: daily or most days caffeine: Yes eating out: 1-3 times/week during the past year weight has: decreased > 10 lbs frequency: 1-2 times per week duration: 15-30 minutes/day ethan/methodist: Advent seatbelt use: always do you feel safe at home: Yes Past Medical/Surgical History Planned Operation Planned Operative Procedure(s): COLONOSCOPY-OA S.O.S: No Previous Hospitalizations/Surgeries HX Hospitalizations: No HX of Surgeries: TONSILLECTOMY LEG FRACTURE left foot surgery x2 Any Problems With Anesthesia: No You/Your Family Experience Fever (Hyperthermia) With Anes: No Cholinesterase deficiency: No Cardiovascular Hx Chest Pain within Last 2 months: No Hx of Irregular Heartbeat and/or Afib: No Hx Heart Attack: No Hx Congestive Heart Failure: No Hx Rheumatic Fever: No Hx Hypertension: No Hx Internal Defibrillator: No Hx Pacemaker: No Hx Cardiac Catheterization: No Hx Cardiac Surgery/Stents/Etc.: No Hx Stress Test: No Hx Pain in Legs when Walking/Leg Cramps: No Respiratory Chronic Cough: No HX of Shortness of Breath: No Hoarseness: No Hx Chronic Obstructive Pulmonary Disease (COPD): No Hx Asthma: No Hx Emphysema: No Hx Sleep Apnea: No CPAP: No BIPAP: No Hx Respiratory Tract Infection/Cold (presently): No Do You Snore Loudly (louder than talking or can be heard): No Do You Often Feel Tired/ Fatigued/ Sleepy Dring Daytime?: No Has Anyone Observed You Stop Breathing During Sleep?: No Result (for STOP score): Negative Hx Smoking: Yes (QUIT 15YRS AGO) Smoking Status: Former smoker Gastrointestinal Controlled With Meds: No Hx Gastrointestinal Disorders: No Hx Gastrointestinal Bleed: No Hx Ulcer: No Hx Hiatal Hernia: No Difficulty Chewing/Swallowing: No Special diet followed at home: No Hx Unplanned Weight Loss of 20#: No HX Unplanned Weight Gain of 20#: No Neurological Hx Seizures: No HX Syncope/Blackout Spe (more content not included)... [facility] 05-13-2024 Consult note [facility] 03-22-2024 Evaluation note Diagnosis Onset Date Resolution Type 2 diabetes mellitus acute March 22 8:59am Immunization declined noneactive Mar 8:59am Encounter for screening for malignant neoplasm of colon noneactive March 22 8:59am Establishing care with new doctor, encounter for noneactive March 22 8:59am Urinary frequency noneactive 2024 8:59am Morbid obesity with BMI of 40.0-44.9, adult noneactive March 8:59am Encounter for screening for malignant neoplasm of colon acute May 13, 2024 6:21am [facility] Work Phone: 1(805) 131-436402-03-2025 Evaluation note* Diagnosis Onset Date Resolution Status Admit Date Type 2 diabetes mellitus acute March 22, 2024 8:59am Immunization declined noneactive Mar 8:59am Encounter for screening for malignant neoplasm of colon noneactive 2024 8:59am Establishing care with new doctor, encounter for noneactive March 222024 8:59am Urinary frequency noneactive uar 2024 8:59am Morbid obesity with BMI of 40.0-44.9, adult noneactive March 22 8:59am Encounter for screening for malignant neoplasm of colon resolved Tee h 2024 6:21am Type 2 diabetes mellitus acute June 23, 2024 10:51am Urinary frequency noneactive June 10:51am Morbid obesity with BMI of 40.0-44.9, adult noneactive June 23, 2024 1 0:51am [facility] Work Phone: 1(656) 318-189502-03-2025 Evaluation note* Diagnosis Onset Date Resolution Status Admit Date Type 2 diabetes mellitus acute March 22, 2024 8:59am Immunization declined noneactive Mar ru2024 8:59am Encounter for screening for malignant neoplasm of colon noneactive uary 2024 8:59am Establishing care with new doctor, encounter for noneactive March 222024 8:59am Urinary frequency noneactive uar 2024 8:59am Morbid obesity with BMI of 40.0-44.9, adult noneactive March 22 8:59am Encounter for screening for malignant neoplasm of colon resolved Tee h 2024 6:21am Type 2 diabetes mellitus acute June 23, 2024 10:51am Urinary frequency noneactive June 10:51am Morbid obesity with BMI of 40.0-44.9, adult noneactive June 23, 2024 1 0:51am Failure of outpatient treatment acute July 07, 2024 1 0:53am Lactic acidosis acute July 07, 2024 10:53am Left leg cellulitis acute June 182024 10:53am Leukocytosis acute July 07 10:53am [facility] Work Phone: 1(723) 292-969301-12-2024 Discharge summary Author Alex Juarez [facility] February 28, 2023 2:03pm Note Date/Time February 28, 2023 1 :58pm [facility] Medical Records Department [address] [place] [address] Discharge Summary 02/28/23 1357 MR#: [id number] Acct: [id number] Name: HOMER DUMAS Rep #:[id number] : 1975 47 From: Alex donovan DPM PCP: Dr. Sun Brar MD Status:A DM IN Location: [place] [id number] Providers Date of Admission: 02/25/23 Date of Discharge: 02/28/23 Primary Care Physician: Dr. Sun Brar MD Consultations 02/24/23 12:32 Consult: Onc/Wound/licensed psychologist manager Routine Comment: Reason for Consult:: 2nd toe dressing 02/24/23 17:20 Consult: Hospitalist Routine Consulting Provider: [facility] Reason for Consult: Hyperglycemia EMERGENT Consult: No MD Notified: Yes Date Notified: 02/24/23 Time Notified: 17:20 Method of Notification: Verbal 02/24/23 18:17 Consult: Infectious Disease Routine Consulting Provider: Maksim Albright Reason for Consult: osteomyelitis left 2nd toe EMERGENT Consult: No MD Notified: Yes Date Notified: 02/25/23 Time Notified: 06:20 Method of Notification: Answering Service Reason For Visit: LEFT SECOND TOE OSTEOMYELITIS Diagnosis Discharge Diagnosis (1) Acute osteomyelitis of toe of left foot: Status: Acute Code(s): M86.172 - Other acute osteomyelitis, left ankle and foot (2) Type 2 diabetes mellitus with diabetic polyneuropathy: Status: Acute Code(s): E11.42 - Type 2 diabetes mellitus with diabetic polyneuropathy Qualifiers: Diabetes mellitus computer terminal operator insulin use: unspecified computer terminal operator insulin use status Qualified Code(s): E11.42 - Type 2 diabetes mellitus with diabetic polyneuropathy (3) Non-pressure chronic ulcer of other part of left foot with fat layer exposed: Status: Chronic Code(s): L97.522 - Non-pressure chronic ulcer of other part of left foot with fat layer exposed Plan Patient seen and evaluated He is s/p distal Symes amputation of the second digit of the left foot, DOS: 02/25/2023. POD #3 Reviewed diagnostic data. MRI reviewed and findings c/w osteomyelitis to the left 2nd toe distal phalanx, now s/p partial toe amputation on 02/25/2023 - site healing appropriately at this time. Sutures intact at amputation stump. No signs of infection. Erythema much improved from yesterday. Surgical cultures demonstrate: Coagulation negative staph, strep, PsA. Clearance fragment with very rare growth PsA. Dressings changed today. Wound care to surgical site left 2nd toe - betadine soln and gauze dressing change. Keep offloaded at all times. No weightbearing left foot, keep foot elevated. Utilize assistance of crutches/walker/knee scooter for assistance and nonweightbearing to the left foot. DVT prophylaxis: [facility] Medicine team currently following for medical management, they are appreciated. Infectious disease following for antibiotic management, they are appreciated. ID recommending 5 days of oral Augmentin and 6 weeks of oral Levaquin upon discharge. ID will follow in 2 weeks. Patient to be discharged home today. will assist in dressing changes at home. Discussed with patient and to continue to elevate lower extremity attimes of rest for postoperative edema control and to remain nonweightbearing to the left lower extremity. Discussed following with Dr. Benites Friday or Friday of next week. [facility] [phone] Medications at Discharge Home Medications alfuzosin 10 mg tablet,extended release 24 hr 10 mg PO DAILY 02/24/23 oxycodone-acetaminophen 5 mg-325 mg tablet (Percocet) 1 tab PO Q6H PRN pain 3 days #12 tabs 02/27/23 amoxicillin 875 mg-potassium clavulanate 125 mg tablet 1 tab PO BID #10 tabs 02/28/23 levofloxacin 750 mg tablet 750 mg PO DAILY #38 tabs 02/28/23 Hospital Course Operations - (Second digit distal Symes amputation of the left foot) Summary of Care Provided Hospital Course: Patient was admitted to [facility] on 02/24/2022 for osteomyelitissecond digit left foot and cellulitis of left foot. He underwent radiographic plain film imaging demonstrating cortical bone erosion of the distal phalanx of the left foot and thus underwent MRI on 02/24/2023 demonstrating osteomyelitis of the distal phalanx of the left foot. He was taken to surgery on 02/25/2023 for distal Symes amputation of the second digit of the left foot. He continued IV antibiotics while in house Vanco/Zosyn. Medicine team was following for medicalmanagement and infectious disease following for antibiotic management. Following 3 days of stay and IV antibiotics cellulitis of the second digit significantly improved. Sutures are intact at the distal amputation stump of the second digit of the left foot with no signs of infection. His dressings were changed daily. At this time following his 3-day course he is to be discharged home and will continue to follow in office with Dr. Benites for continued postoperative care. He will continue outpatient oral course of antibiotics per ID recommendation. Physical Exam Narrative Left foot - s/p partial 2nd toe amputation, sutures intact, no dehiscence, no drainage, no maloder, no necrosis, no fluctuance, no crepitus, no visible abscess, there is some erythema to the dorsal toe which is improved, no erythemaplantarly, there is some edema to the residual toe which is improved, otherwise no open lesions, no erythema, no signs of infection to the foot or ankle. No evidence of ischemia to the foot or ankle, left, no evidence of DVT. There is a very small superficial callus to the distal left 3rd toe. Const alert, oriented x3 and no apparent distress HEENT normocephalic Eyes General Eye: normal appearance of both eyes Neck General: normal visual inspection Lymph Lymphatic: no lymphadenopathy noted and no lymphedema noted Resp normal respiratory effort Cardio regular rate and regular rhythm Extremity normal capillary refill, no joint enlargement, no calf tenderness and no pedal edema Skin no rashes or lesions noted, skin turgor normal and no jaundice Neuro moves all extremities Weight / BMI Weight Weight: 144.424 kg Body Mass Index (BMI) 39.8 ABG / Lab / Microbiology Data 02/27/23 07:15 02/27/23 07:15 Laboratory: Laboratory Results - last 24 hr 02/27/23 16:20: POC Glucose 216 H 02/27/23 16:31: Vancomycin Trough 21.1 H 02/27/23 22:07: POC Glucose 255 H 02/28/23 04:20: Random Vancomycin 8.0 02/28/23 08:27: POC Glucose 176 H 02/28/23 11:28: POC Glucose 246 H Microbiology: Microbiology 02/25/23 Unknown Tissue - 2nd Toe Gram Stain - Final 02/25/23 Unknown Tissue - 2nd Toe Wound Culture - Final Pseudomonas aeruginosa 02/25/23 Unknown Tissue - 2nd Toe Anaerobic Culture - Preliminary 02/25/23 Unknown Bone - 2nd Toe Gram Stain - Final 02/25/23 Unknown Bone - 2nd Toe Wound Culture - Final Streptococcus agalactiae (B) Staphylococcus epidermidis Pseudomonas aeruginosa 02/25/23 Unknown Bone - 2nd Toe Anaerobic Culture - Preliminary 02/24/23 09:30 Wound - Toe Gram Stain - Final 02/24/23 09:30 Wound - Toe Wound Culture - Final Streptococcus agalactiae (B) 02/24/23 09:30 Wound - Toe Anaerobic Culture - Final No anaerobic bacteria isolated. D/C Instructions Discharge Diet: - (Continue to follow proper diabetic diet and eat and glycemic control and to promote healing.) Weight Bearing Status: No weight bearing (Please remain nonweightbearing to the left lower extremity with assistance of crutches, walker, knee scooter) Keep extremity elevated above heart level: Left Leg (Please elevate left lower extremity at all times rest for postoperative edema control) Call your doctor if your incision/area has: Foul Smelling Discharge Call your doctor if you observe: Fever of 101 or Higher, Shortness of breath, Chest pain, Calf discomfort and Uncontrolled pain Cleanse incision/area with: Do not get Incision Wet and Keep Dressing Clean & Dry (Please utilize cast bag when showering to keep dressings clean, dry, and intact to the left foot) Please Follow Up With: Eliu Benites DPM When: 1 week Meaningful Use Info Meaningful Use Diagnoses (Choose all that apply): None applicable Discharge Plan Admission Admit Date/Time: 02/25/23 09:21 Attending Provider: Eliu Benites Primary Care Provider: Sun Brar Consulting Providers: Milla Horner; Cas Sams; Sun Brar; Merle Cunningham; Layne Aguillon NP; Grazyna Esquivel; Jah Diaz NP; Howie Conde; Irlanda Watson; Irlanda Monroe; Maksim Albright; Levi Carter Discharge Orders/Prescriptions Prescriptions: New oxycodone-acetaminophen [Percocet] 5-325 mg tablet 1 tab PO Q6H PRN (Reason: pain) 3 Days Qty: 12 0RF amoxicillin-pot clavulanate 875-125 mg tablet 1 tab PO BID Qty: 10 0RF levofloxacin 750 mg tablet 750 mg PO DAILY Qty: 38 0RF No Action alfuzosin 10 mg tablet extended release 24 hr 10 mg PO DAILY Referrals / Follow Up: Sun Brar MD [Primary Care Provider] - Disposition Disposition (needs filled in before D/C Order can be placed): Home, Self Care 02/28/23 1403 <Electronically signed by Alex Juarez DPM> Cosigner Signature (if applicable): CC: ARI Juarez; Dr. Sun Brar MD~ Signed [facility] Work Phone: 1(409) 502-706801-12-2024 Discharge summary Author Alex Juarez [facility] February 28, 2023 1:55pm Note Date/Time February 28, 2023 1 :42pm [facility] Medical Records Department [address] [place] [address] Instructions for Home/Discharge Instructions 02/28/23 1338 MR#: [id number] Acct: [id number] Name: HOMER DUMAS Rep #:[id number] : 1975 47 From: Alex donovan DPM PCP: Dr. Sun Brar MD Status:A DM IN Discharge Instructions Diet Discharge Diet: - (Continue to follow proper diabetic diet and eat and glycemic control and to promote healing.) Activity Discharge Activity: May Drive, May Shower (Please utilize cast bag covering to keep dressings clean, dry, and intact to the left foot) and Use Walker (Please remain nonweightbearing to the left lower extremity with the assistance of crutches/walker/knee scooter) Weight Bearing Status: No weight bearing (Please remain nonweightbearing to the left lower extremity with assistance of crutches, walker, knee scooter) Keep extremity elevated above heart level: Left Leg (Please elevate left lower extremity at all times rest for postoperative edema control) Dressing / Incision Call your doctor if your incision/area has: Foul Smelling Discharge Call your doctor if you observe: Fever of 101 or Higher, Shortness of breath, Chest pain, Calf discomfort and Uncontrolled pain Change Dressing in: 1 day ( is understanding of dressing changes and will change dressing daily to every other day.) Cleanse incision/area with: Do not get Incision Wet and Keep Dressing Clean & Dry (Please utilize cast bag when showering to keep dressings clean, dry, and intact to the left foot) Follow Up Care Please Follow Up With: Eliu Benites DPM When: 1 week Test Results: Test results from this visit will be discussed in further detail at your follow- up appointment, if applicable. Discharge Plan Admission Admit Date/Time: 02/25/23 09:21 Attending Provider: Eliu Benites Primary Care Provider: Sun Brar Consulting Providers: Milla Horner; Cas Sams; Sun Brar; Merle Cunningham; Layne Aguillon NP; Grazyna Esquivel; Jah Diaz NP; Howie Conde; Irlanda Watson; Irlanda Monroe; Maksim Albright; Levi Carter Discharge Orders/Prescriptions Prescriptions: New oxycodone-acetaminophen [Percocet] 5-325 mg tablet 1 tab PO Q6H PRN (Reason: pain) 3 Days Qty: 12 0RF amoxicillin-pot clavulanate 875-125 mg tablet 1 tab PO BID Qty: 10 0RF levofloxacin 750 mg tablet 750 mg PO DAILY Qty: 38 0RF No Action alfuzosin 10 mg tablet extended release 24 hr 10 mg PO DAILY Referrals / Follow Up: Sun Brar MD [Primary Care Provider] - Disposition Disposition (needs filled in before D/C Order can be placed): Home, Self Care 02/28/23 2990<Electronically signed by Alex Juarez DPM>Alex Juarez DPM CC: SONOGRAPHER-C Layne Aguillon; SONOGRAPHER-C Grazyna Esquivel; SONOGRAPHER-C Jah Diaz; Dr. Milla Horner MD; Dr. Cas Sams DO; Dr. Sun Brar MD; Dr. Merle Cunningham MD; Dr. Levi Carter MD; Dr. Maksim Albright MD; ANA Kirkland;ANA Haro; ANA Fofana ~ Signed [facility] Work Phone: 1(407) 770-863101-12-2024 Progress note Author Alex Juarez [facility] February 28, 2023 1:37pm Note Date/Time February 28, 2023 1 :37pm [facility] Medical Records Department [address] [place] [address] Progress Note 02/28/23 1329 MR#: [id number] Acct: [id number] Name: HOMER DUMAS Rep #:[id number] : 1975 47 From: Alex donovan DPM PCP: Dr. Sun Brar MD Status:A DM IN Location: MS3 [id number] Subjective Subjective Patient was seen and evaluated this afternoon seated in chair bedside with feet elevated. is present with him this afternoon. He has remained nonweightbearing to the left lower extremity. Patient states he feels good overall and denies constitutional symptoms. Denying further complaints. Objective Data Objective Data Vital Signs: Vital Signs Temp Pulse Resp BP Pulse Ox O2 Del Method 97.8 F 76 14 124/82 H 97 Room Air 02/28/23 08:00 02/28/23 08:00 02/28/23 08:00 02/28/23 08:00 02/28/23 08:00 02/28/23 08:00 Oxygen Delivery Method Room Air Weight: 144.424 kg Body Mass Index (BMI) 39.8 Intake & Output: Intake and Output for Last 24 Hours 02/26/23 02/27/23 02/28/23 23:59 23:59 23:59 Intake Total 4320 / 4720 2405 / 2405 1579.5 / 1579.5 Output Total 1250 / 1250 Balance 3070 / 3470 2405 / 2405 1579.5 / 1579.5 Lab / Micro Data 02/27/23 07:15 02/27/23 07:15 Labs: Laboratory Results - last 24 hr 02/27/23 16:20: POC Glucose 216 H 02/27/23 16:31: Vancomycin Trough 21.1 H 02/27/23 22:07: POC Glucose 255 H 02/28/23 04:20: Random Vancomycin 8.0 02/28/23 08:27: POC Glucose 176 H 02/28/23 11:28: POC Glucose 246 H Micro: Microbiology 02/25/23 Unknown Tissue - 2nd Toe Gram Stain - Final 02/25/23 Unknown Tissue - 2nd Toe Wound Culture - Final Pseudomonas aeruginosa 02/25/23 Unknown Tissue - 2nd Toe Anaerobic Culture - Preliminary 02/25/23 Unknown Bone - 2nd Toe Gram Stain - Final 02/25/23 Unknown Bone - 2nd Toe Wound Culture - Final Streptococcus agalactiae (B) Staphylococcus epidermidis Pseudomonas aeruginosa 02/25/23 Unknown Bone - 2nd Toe Anaerobic Culture - Preliminary 02/24/23 09:30 Wound - Toe Gram Stain - Final 02/24/23 09:30 Wound - Toe Wound Culture - Final Streptococcus agalactiae (B) 02/24/23 09:30 Wound - Toe Anaerobic Culture - Final No anaerobic bacteria isolated. Physical Exam Narrative Left foot - s/p partial 2nd toe amputation, sutures intact, no dehiscence, no drainage, no maloder, no necrosis, no fluctuance, no crepitus, no visible abscess, there is some erythema to the dorsal toe which is improved, no erythemaplantarly, there is some edema to the residual toe which is improved, otherwise no open lesions, no erythema, no signs of infection to the foot or ankle. No evidence of ischemia to the foot or ankle, left, no evidence of DVT. There is a very small superficial callus to the distal left 3rd toe. Const alert, oriented x3 and no apparent distress HEENT normocephalic Eyes General Eye: normal appearance of both eyes Neck General: normal visual inspection Lymph Lymphatic: no lymphadenopathy noted and no lymphedema noted Resp normal respiratory effort Cardio regular rate and regular rhythm Extremity normal capillary refill, no joint enlargement, no calf tenderness and no pedal edema Skin no rashes or lesions noted, skin turgor normal and no jaundice Neuro moves all extremities Assessment & Plan Assessment/Plan (1) Acute osteomyelitis of toe of left foot: (2) Type 2 diabetes mellitus with diabetic polyneuropathy: QUALIFIERS: 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 POD #3 Reviewed diagnostic data. MRI reviewed and findings c/w osteomyelitis to the left 2nd toe distal phalanx, now s/p partial toe amputation on 02/25/2023 - site healing appropriately at this time. Sutures intact at amputation stump. No signs of infection. Erythema much improved from yesterday. Surgical cultures demonstrate: Coagulation negative staph, strep, PsA. Clearance fragment with very rare growth PsA. Dressings changed today. Wound care to surgical site left 2nd toe - betadine soln and gauze dressing change. Keep offloaded at all times. No weightbearing left foot, keep foot elevated. Utilize assistance of crutches/walker/knee scooter for assistance and nonweightbearing to the left foot. DVT prophylaxis: [facility] Medicine team currently following for medical management, they are appreciated. Infectious disease following for antibiotic management, they are appreciated. ID recommending 5 days of oral Augmentin and 6 weeks of oral Levaquin upon discharge. ID will follow in 2 weeks. Patient to be discharged home today. will assist in dressing changes at home. Discussed with patient and to continue to elevate lower extremity attimes of rest for postoperative edema control and to remain nonweightbearing to the left lower extremity. Discussed following with Dr. Benites Friday or Friday of next week. Jr. Shamir [facility] [phone] 02/28/23 1332 <Electronically signed by Alex Juarez DPM> Alex Hsu Cosign Signature (if applicable): CC: ~ Signed [facility] Work Phone: 1(345) 723-796101-12-2024 Consult note Author Vazquez Lanza [facility] February 28, 2023 1:18pm Note Date/Time February 28, 2023 1 :19pm [facility] Medical Records Department [address] [place] [address] Counseling Note - Pharmacy 02/28/23 1317 MR#: [id number] Acct: [id number] Name: HOMER DUMAS Aurelia Rep #:[id number] : 1975 47 From: Vazquez Lanza PCP: Dr. Sun Brar MD Status:A DM IN Y Location: [facility] [id number] Pharmacy [facility] Pharmacy Service has performed discharge medication reconciliation and counseling for this patient. The patient's discharge medication list was reviewed for discrepancies and discrepancies were resolved. The patient was counseled on the following discharge medications and changes in medications for homegoing were reviewed. The Reason for Use, instructions for use, and potential side effects were reviewed for all new medications. The patient's questions regarding all of their medications were answered. 1. Amoxicillin/clavulanate 875/125 mg PO BID x 5 days 2. Levofloxacin 750 mg PO daily x 38 days 3. Oxycodone/acetaminophen 5/325 PO Q6H PRN pain The patient was able to verbally demonstrate an understanding of their dischargemedications. Medications at Discharge Home Medications alfuzosin 10 mg tablet,extended release 24 hr 10 mg PO DAILY 02/24/23 oxycodone-acetaminophen 5 mg-325 mg tablet (Percocet) 1 tab PO Q6H PRN pain 3 days #12 tabs 02/27/23 amoxicillin 875 mg-potassium clavulanate 125 mg tablet 1 tab PO BID #10 tabs 02/28/23 levofloxacin 750 mg tablet 750 mg PO DAILY #38 tabs 02/28/23 02/28/23 1318 <Electronically signed by Vazquez burt> Date _ Vazquez Scott Signature (if applicable): Date CC: ~ Signed [facility] Work Phone: 1(718) 443-668201-12-2024 Progress note Author Maksim Albright [facility] February 28, 2023 1:04pm Note Date/Time February 28, 2023 1 :04pm [facility] Medical Records Department [address] [place] [address] Progress Note - Infect Disease 02/28/23 1302 MR#: [id number] Acct: [id number] Name: HOMER DUMAS Aurelia Rep #:[id number] : 1975 47 From: Maksim burt MD PCP: Dr. Sun Brar MD Status:A DM IN Location: [facility] [id number] Physical Exam Narrative Feeling better, no fever, no n/v/d. Const alert and no apparent distress General Appearance: cooperative Resp normal air movement and clear to auscultation bilaterally Cardio regular rate and regular rhythm GI soft to palpation, non-tender and non-distended Skin Skin Narrative: foot wrapped ID ID: Route of nutrition/ use of supplements: [] Nutritional Intake: [] IV Site: [] Saini Catheter: [] Assessment & Plan Assessment/Plan (1) Acute osteomyelitis of toe of left foot: PLAN: Course of cipro/doxy a few weeks ago. OR for amputation 02/25/23. Clearance cx neg so far. Surg cx with PsA, strep, CoNS so far. Clearance cx with very rare PsA. Path pending. On empiric vanc/zosyn. Ok for home with 5 days augmentin, 6 weeks total of levaquin. ID followup in 2 weeks. Counseled him re potential diarrhea, tendonopathy, peripheral neuropathy with quinolones. 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 insulin use: unspecified intermediate insulin use status Qualified Code(s): E11.42 - Type 2 diabetes mellitus with diabetic polyneuropathy 02/28/23 1304 <Electronically signed by Maksim Albright MD> Cosigner Signature (if applicable): CC: ~ Signed [facility] Work Phone: 1(429) 569-282901-12-2024 Discharge summary Author Levi Carter [facility] February 28, 2023 2:47pm Note Date/Time February 28, 2023 1 0:31am [facility] Medical Records Department [address] [place] [address] Instructions for Home/Discharge Instructions 02/28/23 1031 MR#: [id number] Acct: [id number] Name: HOMER DUMAS Aurelia Rep #:[id number] : 1975 47 From: Levi Barksdale PCP: Dr. Sun Brar MD Status:A DM IN Discharge Instructions Diet Discharge Diet: Low fat / Low cholesterol, 1800 Calorie Control Diet and 2000 mgSodium Diet Activity Discharge Activity: Return to Normal Activity Weight Bearing Status: Weight bearing as tolerated Dressing / Incision Call your doctor if you observe: Fever of 101 or Higher, Coldness, Increased Pain, Numbness or Tingling, Change in Color, Inability to urinate, Inability to have a bowel movement, Shortness of breath, Dizziness, Fainting spells, Swellingin the ankles, Chest pain, Prolonged hiccupping, Increased palpitations (irregular heartbeat) and Calf discomfort Follow Up Care When: IN 2 WEEKS Test Results: Test results from this visit will be discussed in further detail at your follow- up appointment, if applicable. Discharge Plan Admission Admit Date/Time: 02/25/23 09:21 Primary Reason for Your Visit: Left second toe osteomyelitis. Attending Provider: Eliu Benites Primary Care Provider: Sun Brar Consulting Providers: Milla Horner; Cas Sams; Sun Brar; Merle Cunningham; Layne Aguillon NP; Grazyna Esquivel; Jah Diaz NP; Howie Conde; Irlanda Watson; Irlanda Monroe; Maksim Albrigth; Levi Carter Discharge Orders/Prescriptions Prescriptions: New oxycodone-acetaminophen [Percocet] 5-325 mg tablet 1 tab PO Q6H PRN (Reason: pain) 3 Days Qty: 12 0RF amoxicillin-pot clavulanate 875-125 mg tablet 1 tab PO BID Qty: 10 0RF levofloxacin 750 mg tablet 750 mg PO DAILY Qty: 38 0RF insulin lispro [Humalog KwikPen Insulin] 100 unit/mL Insulin Pen See Protocol subcut ACHS Qty: 0 0RF Protocol: 3. Sliding Scale Insulin Med Dosing Condition: 150-189 mg/dl = 1 unit Condition: 190-229 mg/dl = 2 units Condition: 230-269 mg/dl = 3 units Condition: 270-309 mg/dl = 4 units Condition: 310-349 mg/dl = 5 units Condition: 350-399 mg/dl = 6 units Condition: 400-449 mg/dl = 7 units Condition: Greater than 449 call physician Protocol Text: - Use for Total Daily Dose of Insulin 37-55 units - Obsese, infected, or steroid patients MEDIUM DOSING ALGORITHIM insulin lispro [Humalog KwikPen Insulin] 100 unit/mL Insulin Pen 17 unit subcut TIDAC Qty: 15 3RF Rx Instructions: Hold if glucose less than 130 mg/dl (DME) insulin syr/ndl U100 half jah 0.3 mL 31 gauge x 15/64 syringe See Rx Instructions .Route Qty: 100 0RF Rx Instructions: As directed insulin glargine [Lantus Solostar U-100 Insulin] 100 unit/mL (3 mL) insulin pen 22 unit subcut BID Qty: 15 4RF Rx Instructions: Hold if glucose less than 130 mg/dl Continued alfuzosin 10 mg tablet extended release 24 hr 10 mg PO DAILY Other Ambulatory Orders: Glucometer (Routine) Timeframe: 1 Day Location: Determined by Patient Ordered By: Dr. Levi Carter Referrals / Follow Up: Sun Brar MD [Primary Care Provider] - Within 2 Weeks Eliu Benites DPM [Med Staff - Active Staff] - Within 1 Week Disposition Disposition (needs filled in before D/C Order can be placed): Home, Self Care 02/28/23 1447<Electronically signed by Levi Carter MD>Levi Carter MD CC: DPM Dr. Eliu Benites; SONOGRAPHER-C Layne Aguillon; SONOGRAPHER-C Grazyna Esquivel; SONOGRAPHER-Anjana Diaz; Dr. Milla Horner MD; Dr. Cas Sams DO; Dr. Sun Brar MD; Dr. Merle Cunningham MD; Dr. Levi Carter MD; Dr. Maksim Albright MD; ANA Kirkland; ANA Haro; ANA Fofana ~ Signed [facility] Work Phone: 1([phone]) 272-404701-12-2024 Consult note Author Nehemiah Alston [facility] February 28, 2023 6:15am Note Date/Time February 28, 2023 6 :15am [facility] Medical Records Department [address] [place] [address] Pharmacokinetic/Renal -Consult 02/28/23 0614 MR#: [id number] Acct: [id number] Name: ALESIAHOMER Aurelia Rep #:[id number] : 1975 47 From: Nehemiah Myers od PCP: Dr. Sun Brar MD Status:A DM IN Y Location: [place] [id number] Consult Antibiotic Management Pharmacy has been consulted to manage selected antibiotic: Vancomycin Type of Intervention Type of Consult: Follow-up Labs Labs: Sodium 137 mmol/L (136-145) 02/27/23 07:15 Potassium 3.9 mmol/L (3.5-5.1) 02/27/23 07:15 Chloride 106 mmol/L (98-107) 02/27/23 07:15 Carbon Dioxide 25.0 mmol/L (21.0-32.0) 02/27/23 07:15 Anion Gap 6 (5-15) 02/27/23 07:15 BUN 15 mg/dL (7-18) 02/27/23 07:15 Creatinine 0.65 mg/dL (0.70-1.30) L 02/27/23 07:15 Est GFR (MDRD) Af Amer 168 mL/min (>60) 02/27/23 07:15 Est GFR (MDRD) Non-Af 139 mL/min (>60) 02/27/23 07:15 BUN/Creatinine Ratio 22.9 RATIO (10-20) H 02/27/23 07:15 Glucose 236 mg/dL (74-106) H 02/27/23 07:15 Vancomycin Trough 21.1 ug/mL (5.0-15.0) H 02/27/23 16:31 Random Vancomycin 8.0 ug/mL (0.0-15.0) 02/28/23 04:20 Microbiology Microbiology: Microbiology 02/24/23 09:30 Wound - Toe Gram Stain - Final 02/24/23 09:30 Wound - Toe Wound Culture - Final Streptococcus agalactiae (B) 02/24/23 09:30 Wound - Toe Anaerobic Culture - Preliminary 02/25/23 Unknown Bone - 2nd Toe Gram Stain - Final 02/25/23 Unknown Bone - 2nd Toe Wound Culture - Preliminary Streptococcus agalactiae (B) Staphylococcus epidermidis GNR Poss Pseudomonas sp 02/25/23 Unknown Tissue - 2nd Toe Gram Stain - Final 02/25/23 Unknown Tissue - 2nd Toe Wound Culture - Preliminary Gram negative adan Goal Trough Goal Trough: 15-20 mcg/mL Pharmacy Plan for Drug Dosing Pharmacy Plan for Drug Dosing: Pharmacy Service will continue to monitor and adjust dosing as required. RANDOM LEVEL 8.0 @ 0420. RESTART AT 1750 Q8H AND FOLLOW UP TROUGH PRIOR TO 4TH DOSE Follow-Up Labs Follow-Up Labs: Trough: Vancomycin Date/Time Labs Ordered Labs to be done on [date and time ordered]: 03/01 @ 0530 02/28/23 0615 <Electronically signed by Nehemiah garcia> Date _ Nehemiah Alston Cosigner Signature (if applicable): Date CC: ~ Signed [facility] Work Phone: 1(982) 879-576501-11-2024 Progress note Author Levi Carter [facility] February 27, 2023 5:20pm Note Date/Time February 27, 2023 5 :20pm [facility] Medical Records Department [address] [place] [address] Progress Note - Hospitalist 02/27/23 1718 MR#: [id number] Acct: [id number] Name: HOMER DUMAS Rep #:[id number] : 1975 47 From: Levi Barksdale PCP: Dr. Sun Brar MD Status:A DM IN Location: [place] [id number] Reason for Visit Reason for Visit: Diagnoses Type 2 diabetes mellitus with diabetic polyneuropathy (02/25/23) Non-pressure chronic ulcer of other part of left foot with fat layer exposed (02/25/23) Other acute osteomyelitis, left ankle and foot (02/25/23) Objective Data Objective Data Vital Signs: Vital Signs Temp Pulse Resp BP Pulse Ox O2 Del Method 98.0 F 91 15 137/84 H 97 Room Air 02/27/23 13:58 02/27/23 13:58 02/27/23 13:58 02/27/23 13:58 02/27/23 13:58 02/27/23 13:58 Oxygen Delivery Method Room Air Weight: 318 lb 6.406 oz Body Mass Index (BMI) 39.8 Intake & Output: Intake and Output for Last 24 Hours 02/25/23 02/26/2324 23:59 23:59 23:59 Intake Total 2390 / 2965 4320 / 4720 1680 / 1680 Output Total 200 / 900 1250 / 1250 Balance 2190 / 2065 3070 / 3470 1680 / 1680 Lab / Micro Data 02/27/23 07:15 02/27/23 07:15 Labs: Laboratory Results - last 24 hr 02/26/23 16:11: POC Glucose 258 H 02/26/23 16:30: Vancomycin Trough 18.1 H 02/26/23 20:26: POC Glucose 235 H 02/27/23 07:15: WBC 8.4, RBC 5.37, Hgb 15.2, Hct 45.5, MCV 84.7, MCH 28.3, MCHC 33.4, RDW Std Deviation 41.1, RDW Coeff of Gabriella 13.3, Plt Count 190, MPV 9.6, Immature Gran % (Auto) 0.400, Neut % (Auto) 54.9, Lymph % (Auto) 33.0, [place] % (Auto) 8.2, Eos % (Auto) 2.7, Baso % (Auto) 0.8, Absolute Neuts (auto) 4.6, Absolute Lymphs (auto) 2.76, Nucleated RBC % 0, Sodium 137, Potassium 3.9, Chloride 106, Carbon Dioxide 25.0, Anion Gap 6, BUN 15, Creatinine 0.65 L, EstimCreat Clear Calc 215.55, Est GFR (MDRD) Af Amer 168, Est GFR (MDRD) Non-Af 139, BUN/Creatinine Ratio 22.9 H, Glucose 236 H, Calcium 9.2, Total Bilirubin 0.70, AST 11 L, ALT 29, Alkaline Phosphatase 90, Total Protein 6.3 L, Albumin 3.0 L, Globulin 3.3, Albumin/Globulin Ratio 0.9 02/27/23 07:47: POC Glucose 230 H 02/27/23 11:04: POC Glucose 256 H 02/27/23 16:20: POC Glucose 216 H Micro: Microbiology 02/24/23 09:30 Wound - Toe Gram Stain - Final 02/24/23 09:30 Wound - Toe Wound Culture - Final Streptococcus agalactiae (B) 02/24/23 09:30 Wound - Toe Anaerobic Culture - Preliminary 02/25/23 Unknown Bone - 2nd Toe Gram Stain - Final 02/25/23 Unknown Bone - 2nd Toe Wound Culture - Preliminary Streptococcus agalactiae (B) Staphylococcus epidermidis GNR Poss Pseudomonas sp 02/25/23 Unknown Tissue - 2nd Toe Gram Stain - Final 02/25/23 Unknown Tissue - 2nd Toe Wound Culture - Preliminary Gram negative adan Physical Exam Narrative Seen and examined. Patient admitted with left 2nd toe chronic ulcer, chronic osteomyelitis. Had surgery already. Awaiting tissue culture.. Patient is diabetic with high A1c. Physical exam General: Alert, Oriented x3, Cooperative. Morbid obesity BMI 39.8 kg/m? HEENT: Atraumatic, PERRLA, EOMI, Normocephalic Oral: No Gingival or Mucosal Lesions/ Ulcerations Neck: Supple, No JVD, Negative Carotid Bruits Lungs: Air entry diminished in bilateral lung bases. No crepitation/rhonchi Cardiovascular: Regular rate, Regular Rhythm, Normal S1, Normal S2, No murmurs Abdomen: Bowel Sounds Present, Soft, Non Tender, Non-Distended : No renal angle tenderness. No suprapubic tenderness. Extremities: No edema, Capillary Refill Less than 3 Seconds Skin: Left 2nd toe, tip has ulcer. Nonhealing. Musculoskeletal: No Tenderness to Palpation of Joints or Extremities Neurological: Cranial nerves II-XII grossly intact, DTR 2+/4. No acute focal neurological deficit. Psych/Mental Status: Normal Affect, Appropriate. Assessment & Plan Assessment/Plan (1) Acute osteomyelitis of toe of left foot: PLAN: Plan The patient is a 47 y/o M is being admitted for left third toe pain for 2 to 3 days with radiation up to tibial region. History of surgery on the foot by Dr. Benites in the past. Denies fever. Denies new trauma. Patient also has chronic ankle pain and swelling because history of ankle surgery in the past. #1. Left Second toe Acutely Infected Diabetic Wound with Suspected Acute Osteomyelitis: Directly admitted per podiatry. Preliminary wound culture shows beta Streptococcus 1+. MRI foot shows osteomyelitis of second distal phalanx. Marrow edema of the distal phalanx of second toe. CRP mildly elevated although ESR normal. Currently on empiric vancomycin and Zosyn. Patient had a course ofCipro and Doxy few weeks ago. ID was consulted. Patient had partial left second toe amputation on 02/25/2023. Will wait for tissue/operative culture. 02/26: Tissue/wound culture from 02/26 shows beta Streptococcus, PEDIATRIC SURGEON, GNR possible Pseudomonas species. Will wait for the final culture report. #2. Diabetes mellitus type II, poorly controlled: A1c 8.8%. Last hemoglobin A1c 04/27/2021 6.4%. 02/26 glucose is high between 250-325. Patient is started on Humalog insulin andLantus insulin. Insulin dose uptitrated. Monitor Accu-Cheks and needs further adjustment. 02/25: Preliminary tissue culture shows Streptococcus group B, Staph epidermidis, GNR possible Pseudomonas. Will wait for full culture and then determine antibiotic. #3. Morbid Obesity: Weight loss and lifestyle changes encouraged, nutrition consulted. #4. DVT prophylaxis: SCDs, DVT prophylaxis. Microbiology Past 72 Hours 02/24/23 09:30 Wound - Toe Gram Stain - Final 02/24/23 09:30 Wound - Toe Wound Culture - Final Streptococcus agalactiae (B) 02/24/23 09:30 Wound - Toe Anaerobic Culture - Preliminary 02/25/23 Unknown Bone - 2nd Toe Gram Stain - Final 02/25/23 Unknown Bone - 2nd Toe Wound Culture - Preliminary Streptococcus agalactiae (B) Staphylococcus epidermidis GNR Poss Pseudomonas sp 02/25/23 Unknown Tissue - 2nd Toe Gram Stain - Final 02/25/23 Unknown Tissue - 2nd Toe Wound Culture - Preliminary Gram negative adan Laboratory Results 02/26/23 16:11: POC Glucose 258 H 02/26/23 16:30: Vancomycin Trough 18.1 H 02/26/23 20:26: POC Glucose 235 H 02/27/23 07:15: WBC 8.4, RBC 5.37, Hgb 15.2, Hct 45.5, MCV 84.7, MCH 28.3, MCHC 33.4, RDW Std Deviation 41.1, RDW Coeff of Gabriella 13.3, Plt Count 190, MPV 9.6, Immature Gran % (Auto) 0.400, Neut % (Auto) 54.9, Lymph % (Auto) 33.0, Oceana % (Auto) 8.2, Eos % (Auto) 2.7, Baso % (Auto) 0.8, Absolute Neuts (auto) 4.6, Absolute Lymphs (auto) 2.76, Nucleated RBC % 0, Sodium 137, Potassium 3.9, Chloride 106, Carbon Dioxide 25.0, Anion Gap 6, BUN 15, Creatinine 0.65 L, EstimCreat Clear Calc 215.55, Est GFR (MDRD) Af Amer 168, Est GFR (MDRD) Non-Af 139, BUN/Creatinine Ratio 22.9 H, Glucose 236 H, Calcium 9.2, Total Bilirubin 0.70, AST 11 L, ALT 29, Alkaline Phosphatase 90, Total Protein 6.3 L, Albumin 3.0 L, Globulin 3.3, Albumin/Globulin Ratio 0.9 02/27/23 07:47: POC Glucose 230 H 02/27/23 11:04: POC Glucose 256 H 02/27/23 16:20: POC Glucose 216 H 02/27/23 16:31: Vancomycin Trough Pending Charges/Coding Visit Charges Inpatient E&M: 33143 Subs Hosp L2 02/27/23 1720 <Electronically signed by Levi Carter MD> Cosigner Signature (if applicable): CC: ~ Signed [facility] Work Phone: 1(769) 338-349801-11-2024 Progress note Author Eliu Benites [facility] February 27, 2023 5:17pm Note Date/Time February 27, 2023 5 :15pm [facility] Medical Records Department [address] [place] [address] Progress Note 02/27/231713 MR#: [id number] Acct: [id number] Name: HOMER DUMAS Rep #:[id number] : 1975 47 From: Eliu Benites DPM PCP: Dr. Sun Brar MD Status:A DM IN Location: MS3 [id number] Subjective Subjective Patient was seen today for follow up on left 2nd toe partial amputation. He is resting sitting in chair with foot elevated. He has no new complaints, no pain at this time. No complaints of f/c/n/v or any other complaints. Objective Data Objective Data Vital Signs: Vital Signs Temp Pulse Resp BP Pulse Ox O2 Del Method 98.0 F 91 15 137/84 H 97 Room Air 02/27/23 13:58 02/27/23 13:58 02/27/23 13:58 02/27/23 13:58 02/27/23 13:58 02/27/23 13:58 Oxygen Delivery Method Room Air Weight: 144.424 kg Body Mass Index (BMI) 39.8 Intake & Output: Intake and Output for Last 24 Hours 02/25/23 02/26/23 02/27/23 23:59 23:59 23:59 Intake Total 2390 / 2965 4320 / 4720 1680 / 1680 Output Total 200 / 900 1250 / 1250 Balance 2190 / 2065 3070 / 3470 1680 / 1680 Lab / Micro Data 02/27/23 07:15 02/27/23 07:15 Labs: Laboratory Results - last 24 hr 02/26/23 16:11: POC Glucose 258 H 02/26/23 16:30: Vancomycin Trough 18.1 H 02/26/23 20:26: POC Glucose 235 H 02/27/23 07:15: WBC 8.4, RBC 5.37, Hgb 15.2, Hct 45.5, MCV 84.7, MCH 28.3, MCHC 33.4, RDW Std Deviation 41.1, RDW Coeff of Gabriella 13.3, Plt Count 190, MPV 9.6, Immature Gran % (Auto) 0.400, Neut % (Auto) 54.9, Lymph % (Auto) 33.0, Oceana % (Auto) 8.2, Eos % (Auto) 2.7, Baso % (Auto) 0.8, Absolute Neuts (auto) 4.6, Absolute Lymphs (auto) 2.76, Nucleated RBC % 0, Sodium 137, Potassium 3.9, Chloride 106, Carbon Dioxide 25.0, Anion Gap 6, BUN 15, Creatinine 0.65 L, EstimCreat Clear Calc 215.55, Est GFR (MDRD) Af Amer 168, Est GFR (MDRD) Non-Af 139, BUN/Creatinine Ratio 22.9 H, Glucose 236 H, Calcium 9.2, Total Bilirubin 0.70, AST 11 L, ALT 29, Alkaline Phosphatase 90, Total Protein 6.3 L, Albumin 3.0 L, Globulin 3.3, Albumin/Globulin Ratio 0.9 02/27/23 07:47: POC Glucose 230 H 02/27/23 11:04: POC Glucose 256 H 02/27/23 16:20: POC Glucose 216 H Micro: Microbiology 02/24/23 09:30 Wound - Toe Gram Stain - Final 02/24/23 09:30 Wound - Toe Wound Culture - Final Streptococcus agalactiae (B) 02/24/23 09:30 Wound - Toe Anaerobic Culture - Preliminary 02/25/23 Unknown Bone - 2nd Toe Gram Stain - Final 02/25/23 Unknown Bone - 2nd Toe Wound Culture - Preliminary Streptococcus agalactiae (B) Staphylococcus epidermidis GNR Poss Pseudomonas sp 02/25/23 Unknown Tissue - 2nd Toe Gram Stain - Final 02/25/23 Unknown Tissue - 2nd Toe Wound Culture - Preliminary Gram negative adan Physical Exam Narrative Left foot - s/p partial 2nd toe amputation, sutures intact, no dehiscence, no drainage, no maloder, no necrosis, no fluctuance, no crepitus, no visible abscess, there is some erythema to the dorsal toe which is improved, no erythemaplantarly, there is some edema to the residual toe which is improved, otherwise no open lesions, no erythema, no signs of infection to the foot or ankle. No evidence of ischemia to the foot or ankle, left, no evidence of DVT. There is a very small superficial callus to the distal left 3rd toe. Const alert, oriented x3 and no apparent distress Assessment & Plan Assessment/Plan (1) Acute osteomyelitis of toe of left foot: (2) Type 2 diabetes mellitus with diabetic polyneuropathy: QUALIFIERS: Diabetes mellitus computer terminal operator insulin use: unspecified computer terminal operator insulin use status Qualified Code(s): E11.42 - Type 2 diabetes mellitus with diabetic polyneuropathy (3) Non-pressure chronic ulcer of other part of left foot with fat layer exposed: PLAN: Plan Evaluation preformed. Reviewed diagnostic data. MRI reviewed and findings c/w osteomyelitis to the left 2nd toe distal phalanx, now s/p partial toe amputationon 02/25/2023 - site healing appropriately at this time. Cultures has been obtained, he is on Vanc and Zosyn, ID service has been consulted and following. Patient noted to have elevated blood sugar - Hospitalist consulted. Wound care to surgical site left 2nd toe - betadine soln and gauze dressing change. Keep offloaded at all times. No weightbearing left foot, keep foot elevated. DVT Prophylaxis: SCDs bilateral LE 02/27/23 8197 <Electronically signed by Eliu Benites DPM> Eliu Benites DPM Cosigner Signature (if applicable): CC: ~ Signed [facility] Work Phone: 1(538) 470-421601-11-2024 Progress note Author Mkasim Albright [facility] February 27, 2023 10:58am Note Date/Time February 27, 2023 1 0:58am [facility] Medical Records Department [address] [place] [address] Progress Note - Infect Disease 02/27/23 1056 MR#: [id number] Acct: [id number] Name: HOMER DUMAS Rep #:[id number] : 1975 47 From: Maksim burt MD PCP: Dr. Sun Brar MD Status:A DM IN Location: [place]3 LS411-5 Physical Exam Narrative Feeling fine, no fever, no n/v/d. Const alert and no apparent distress General Appearance: cooperative Resp normal air movement and clear to auscultation bilaterally Cardio regular rate and regular rhythm GI soft to palpation, non-tender and non-distended Skin Skin Narrative: foot wrapped ID ID: Route of nutrition/ use of supplements: [] Nutritional Intake: [] IV Site: [] Saini Catheter: [] Assessment & Plan Assessment/Plan (1) Acute osteomyelitis of toe of left foot: PLAN: Course of cipro/doxy a few weeks ago. OR for amputation 02/25/23. Clearance cx neg so far. Surg cx with PsA like, strep, CoNS so far. On empiric vanc/zosyn. Plan on short course po abx when he leaves. 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 mellitus intermediate insulin use: unspecified intermediate insulin use status Qualified Code(s): E11.42 - Type 2 diabetes mellitus with diabetic polyneuropathy 02/27/23 1058 <Electronically signed by Maksim Albright MD> Cosigner Signature (if applicable): CC: ~ Signed [facility] Work Phone: 1(586) 672-242201-10-2024 Consult note Author Dalila Fischer [facility] February 26, 2023 6:28pm Note Date/Time February 26, 2023 6 :28pm [facility] Medical Records Department [address] [place] [address] Pharmacokinetic/Renal -Consult 02/26/23 1828 MR#: [id number] Acct: [id number] Name: HOMER DUMAS Rep #:[id number] : 1975 47 From: Dalila Fischer PCP: Dr. Sun Brar MD Status:A DM IN Y Location: MS3 [id number] Consult Antibiotic Management Pharmacy has been consulted to manage selected antibiotic: Vancomycin Type of Intervention Type of Consult: Follow-up Labs Labs: Sodium 136 mmol/L (136-145) 02/24/23 13:15 Potassium 3.8 mmol/L (3.5-5.1) 02/24/23 13:15 Chloride 104 mmol/L (98-107) 02/24/23 13:15 Carbon Dioxide 27.0 mmol/L (21.0-32.0) 02/24/23 13:15 Anion Gap 5 (5-15) 02/24/23 13:15 BUN 16 mg/dL (7-18) 02/24/23 13:15 Creatinine 0.68 mg/dL (0.70-1.30) L 02/25/23 13:25 Est GFR (MDRD) Af Amer 162 mL/min (>60) 02/25/23 13:25 Est GFR (MDRD) Non-Af 134 mL/min (>60) 02/25/23 13:25 BUN/Creatinine Ratio 18.4 RATIO (10-20) 02/24/23 13:15 Glucose 302 mg/dL (74-106) H 02/24/23 13:15 Vancomycin Trough 18.1 ug/mL (5.0-15.0) H 02/26/23 16:30 Microbiology Microbiology: Microbiology 02/25/23 Unknown Bone - 2nd Toe Gram Stain - Final 02/25/23 Unknown Bone - 2nd Toe Wound Culture - Preliminary Beta streptococcus Coag Negative Staph GNR Poss Pseudomonas sp 02/25/23 Unknown Tissue - 2nd Toe Gram Stain - Final 02/24/23 09:30 Wound - Toe Gram Stain - Final 02/24/23 09:30 Wound - Toe Wound Culture - Final Streptococcus agalactiae (B) Goal Trough Goal Trough: 15-20 mcg/mL Pharmacy Plan for Drug Dosing Pharmacy Plan for Drug Dosing: VANCOMYCIN LEVEL RECEIVED Current Vancomycin Dose: 2000mg IV Q8h Number of Doses Received: 3 (of current regimen) Vancomycin Level: 18.1 Hours Since Last Dose: 6.5hr Renal Function: 0.68 Renal Function Trend: stable Lab/Micro: Bone Cx growing mult spp Vancomycin Plan/Comments: Patient had a trough drawn which resulted in a value of 18.1 (Goal 15-20). Patient is currently within therapeutic range. Given the patient is on a large dose of vancomycin every 8 hours, will continue current dose but check a trough again in 24hrs to ensure pt is still within therapeutic goal. Pending Level: 02/27/23 @1700 Pharmacy Service will continue to monitor and adjust dosing as required. 02/26/23 1470 <Electronically signed by Dalila Fischer > Date _ Dalila Fischer Cosigner Signature (if applicable): Date CC: ~ Signed [facility] Work Phone: 1(102) 579-895001-10-2024 Progress note Author Levi Carter [facility] February 26, 2023 4:41pm Note Date/Time February 26, 2023 1 0:41am [facility] Medical Records Department [address] [place] [address] Progress Note - Hospitalist 02/26/23 1041 MR#: [id number] Acct: [id number] Name: HOMER DUMAS Aurelia Rep #:[id number] : 1975 47 From: Levi Barksdale PCP: Dr. Sun Brar MD Status:A DM IN Location: [facility] IM505-3 Reason for Visit Reason for Visit: Diagnoses Type 2 diabetes mellitus with diabetic polyneuropathy (02/25/23) Non-pressure chronic ulcer of other part of left foot with fat layer exposed (02/25/23) Other acute osteomyelitis, left ankle and foot (02/25/23) Objective Data Objective Data Vital Signs: Vital Signs Temp Pulse Resp BP Pulse Ox O2 Del Method 97.7 F L 76 16 105/63 98 Room Air 02/26/23 08:30 02/26/23 08:30 02/26/23 08:30 02/26/23 08:30 02/26/23 08:30 02/26/23 09:00 Oxygen Delivery Method Room Air Weight: 318 lb 6.406 oz Body Mass Index (BMI) 39.8 Intake & Output: Intake and Output for Last 24 Hours 02/24/23 02/25/23 02/26/23 23:59 23:59 23:59 Intake Total 1440.00 / 1840.00 2390 / 2965 1540 / 1540 Output Total 200 / 900 1250 / 1250 Balance 1440.00 / 1840.00 2190 / 2065 290 / 290 Lab / Micro Data 02/24/23 13:15 02/25/23 13:25 Labs: Laboratory Results - last 24 hr 02/25/23 11:54: POC Glucose 232 H 02/25/23 13:25: Creatinine 0.68 L, Estim Creat Clear Calc 206.04, Est GFR (MDRD)Af Amer 162, Est GFR (MDRD) Non-Af 134, Vancomycin Trough 12.2 02/25/23 17:24: POC Glucose 171 H 02/25/23 21:10: POC Glucose 210 H 02/26/23 06:26: POC Glucose 195 H Micro: Microbiology 02/24/23 09:30 Wound - Toe Gram Stain - Final 02/24/23 09:30 Wound - Toe Wound Culture - Final Streptococcus agalactiae (B) Radiography Diagnostic Testing: Radiology Impression Foot X-Ray 02/25/23 16:24 IMPRESSION: Postoperative changes in the distal aspect of the second toe with normal postoperative soft tissue swelling No acute fracture or suspicious osseous lesion Stable polyarticular arthrosis unchanged from 02/01/2023 Calcaneal spurs Electronically Signed: Iván Jean-Baptiste MD at 17:11 EST , Physical Exam Narrative Seen and examined. Patient admitted with left 2nd toe chronic ulcer, chronic osteomyelitis. Had surgery yesterday. Patient is diabetic with high A1c. Physical exam General: Alert, Oriented x3, Cooperative. Morbid obesity BMI 39.8 kg/m? HEENT: Atraumatic, PERRLA, EOMI, Normocephalic Oral: No Gingival or Mucosal Lesions/ Ulcerations Neck: Supple, No JVD, Negative Carotid Bruits Lungs: Air entry diminished in bilateral lung bases. No crepitation/rhonchi Cardiovascular: Regular rate, Regular Rhythm, Normal S1, Normal S2, No murmurs Abdomen: Bowel Sounds Present, Soft, Non Tender, Non-Distended : No renal angle tenderness. No suprapubic tenderness. Extremities: No edema, Capillary Refill Less than 3 Seconds Skin: Left 2nd toe, tip has ulcer. Nonhealing. Musculoskeletal: No Tenderness to Palpation of Joints or Extremities Neurological: Cranial nerves II-XII grossly intact, DTR 2+/4. No acute focal neurological deficit. Psych/Mental Status: Normal Affect, Appropriate. Assessment & Plan Assessment/Plan (1) Acute osteomyelitis of toe of left foot: PLAN: Plan The patient is a 47 y/o M is being admitted for left third toe pain for 2 to 3 days with radiation up to tibial region. History of surgery on the foot by Dr. Benites in the past. Denies fever. Denies new trauma. Patient also has chronic ankle pain and swelling because history of ankle surgery in the past. #1. Left Second toe Acutely Infected Diabetic Wound with Suspected Acute Osteomyelitis: Directly admitted per podiatry. Preliminary wound culture shows beta Streptococcus 1+. MRI foot shows osteomyelitis of second distal phalanx. Marrow edema of the distal phalanx of second toe. CRP mildly elevated although ESR normal. Currently on empiric vancomycin and Zosyn. Patient had a course ofCipro and Doxy few weeks ago. ID was consulted. Patient had partial left second toe amputation on 02/25/2023. Will wait for tissue/operative culture. 02/26: Tissue/wound culture from 02/26 shows beta Streptococcus, PEDIATRIC SURGEON, GNR possible Pseudomonas species. Will wait for the final culture report. #2. Diabetes mellitus type II, poorly controlled: A1c 8.8%. Last hemoglobin A1c 04/27/2021 6.4%. 02/26 glucose is high between 250-325. Patient is started on Humalog insulin andLantus insulin. Insulin dose uptitrated. Monitor Accu-Cheks and needs further adjustment. #3. Morbid Obesity: Weight loss and lifestyle changes encouraged, nutrition consulted. #4. DVT prophylaxis: SCDs, DVT prophylaxis. Microbiology Past 72 Hours 02/25/23 Unknown Bone - 2nd Toe Gram Stain - Final 02/25/23 Unknown Bone - 2nd Toe Wound Culture - Preliminary Beta streptococcus Coag Negative Staph GNR Poss Pseudomonas sp 02/25/23 Unknown Tissue - 2nd Toe Gram Stain - Final 02/24/23 09:30 Wound - Toe Gram Stain - Final 02/24/23 09:30 Wound - Toe Wound Culture - Final Streptococcus agalactiae (B) Laboratory Results 02/25/23 17:24: POC Glucose 171 H 02/25/23 21:10: POC Glucose 210 H 02/26/23 06:26: POC Glucose 195 H 02/26/23 11:36: POC Glucose 295 H Charges/Coding Visit Charges Inpatient E&M: 43990 Subs Hosp L2 02/26/23 1641 <Electronically signed by Levi Carter MD> Cosigner Signature (if applicable): CC: ~ Signed [facility] Work Phone: 1(679) 752-673401-10-2024 Progress note Author Eliu Benites [facility] February 26, 2023 12:15pm Note Date/Time February 26, 2023 1 2:15pm [facility] Medical Records Department [address] [place] [address] Progress Note 02/26/23 1211 MR#: [id number] Acct: [id number] Name: HOMER DUMAS Aurelia Rep #:[id number] : 1975 47 From: Eliu Benites DPChris PCP: Dr. Sun Brar MD Status:A DM IN Location: MS3 [id number] Subjective Subjective He was seen today for follow up on left 2nd toe partial amputation. He is resting comfortably in bed, and parents at bedside. He said he did have some pain in his 3rd toe, no other complaints. Objective Data Objective Data Vital Signs: Vital Signs Temp Pulse Resp BP Pulse Ox O2 Del Method 97.7 F L 76 16 105/63 98 Room Air 02/26/23 08:30 02/26/23 08:30 02/26/23 08:30 02/26/23 08:30 02/26/23 08:30 02/26/23 09:00 Oxygen Delivery Method Room Air Weight: 144.424 kg Body Mass Index (BMI) 39.8 Intake & Output: Intake and Output for Last 24 Hours 02/24/23 02/25/23 02/26/23 23:59 23:59 23:59 Intake Total 1440.00 / 1840.00 2390 / 2965 1540 / 1540 Output Total 200 / 900 1250 / 1250 Balance 1440.00 / 1840.00 2190 / 2065 290 / 290 Lab / Micro Data 02/24/23 13:15 02/25/23 13:25 Labs: Laboratory Results - last 24 hr 02/25/23 11:54: POC Glucose 232 H 02/25/23 13:25: Creatinine 0.68 L, Estim Creat Clear Calc 206.04, Est GFR (MDRD)Af Amer 162, Est GFR (MDRD) Non-Af 134, Vancomycin Trough 12.2 02/25/23 17:24: POC Glucose 171 H 02/25/23 21:10: POC Glucose 210 H 02/26/23 06:26: POC Glucose 195 H Micro: Microbiology 02/25/23 Unknown Bone - 2nd Toe Wound Culture - Preliminary Beta streptococcus Coag Negative Staph GNR Poss Pseudomonas sp 02/24/23 09:30 Wound - Toe Gram Stain - Final 02/24/23 09:30 Wound - Toe Wound Culture - Final Streptococcus agalactiae (B) Radiography Diagnostic Testing: Radiology Impression Foot X-Ray 02/25/23 16:24 IMPRESSION: Postoperative changes in the distal aspect of the second toe with normal postoperative soft tissue swelling No acute fracture or suspicious osseous lesion Stable polyarticular arthrosis unchanged from 02/01/2023 Calcaneal spurs Electronically Signed: Iván Jean-Baptiste MD at 17:11 EST , Physical Exam Narrative Left foot - s/p partial 2nd toe amputation, sutures intact, no dehiscence, no drainage, no maloder, no necrosis, no fluctuance, no crepitus, no visible abscess, there is some erythema to the dorsal toe, no erythema plantarly, there is some edema to the residual toe, otherwise no open lesions, no erythema, no signs of infection to the foot or ankle. No evidence of ischemia to the foot or ankle, left, no evidence of DVT. There is a very small superficial callus to thedistal left 3rd toe. Const alert, oriented x3 and no apparent distress Assessment & Plan Assessment/Plan (1) Acute osteomyelitis of toe of left foot: (2) Type 2 diabetes mellitus with diabetic polyneuropathy: QUALIFIERS: Diabetes mellitus computer terminal operator insulin use: unspecified computer terminal operator insulin use status Qualified Code(s): E11.42 - Type 2 diabetes mellitus with diabetic polyneuropathy (3) Non-pressure chronic ulcer of other part of left foot with fat layer exposed: PLAN: Plan Evaluation preformed. Reviewed diagnostic data. MRI reviewed and findings c/w osteomyelitis to the left 2nd toe distal phalanx, now s/p partial toe amputationon 02/25/2023 - site healing appropriately at this time. Cultures has been obtained, he has been started on Vanc and Zosyn, ID service has been consulted and following. Patient noted to have elevated blood sugar - Hospitalist consulted. Wound care to surgical site left 2nd toe - betadine soln and gauze dressing change. Keep offloaded at all times. No weightbearing left foot, keep foot elevated. 02/26/23 1215 <Electronically signed by Eliu Benites DPM> Eliu Benites DPM Cosigner Signature (if applicable): CC: ~ Signed [facility] Work Phone: 1(608) 986-263201-09-2024 Consult note Author Dalila Fischer [facility] February 25, 2023 7:46pm Note Date/Time February 25, 2023 3: 15pm [facility] Medical Records Department [address] [facility] [place] [address] Pharmacokinetic/Renal -Consult 02/25/23 1515 MR#: [id number] Acct: [id number] Name: HOMER DUMAS Rep #:[id number] : 1975 47 From: Vazquez Lanza PCP: Dr. Sun Brar MD Status:A DM IN Y Location: MS3 [id number] Consult Antibiotic Management Pharmacy has been consulted to manage selected antibiotic: Vancomycin Type of Intervention Type of Consult: Follow-up Suspected Infection Suspected Infection: Osteomyelitis Prior Doses of Antibiotics Prior Doses of Antibiotics Received/Current Regimen: Vancomycin 1500 mg IV Q8H given 02/24 @ 2223, and 02/25 @ 0621 Labs Labs: Sodium 136 mmol/L (136-145) 02/24/23 13:15 Potassium 3.8 mmol/L (3.5-5.1) 02/24/23 13:15 Chloride 104 mmol/L (98-107) 02/24/23 13:15 Carbon Dioxide 27.0 mmol/L (21.0-32.0) 02/24/23 13:15 Anion Gap 5 (5-15) 02/24/23 13:15 BUN 16 mg/dL (7-18) 02/24/23 13:15 BUN/Creatinine Ratio 18.4 RATIO (10-20) 02/24/23 13:15 Glucose 302 mg/dL (74-106) H 02/24/23 13:15 Vancomycin Trough 12.2 ug/mL (5.0-15.0) 02/25/23 13:25 Microbiology Microbiology: Microbiology 02/24/23 09:30 Wound - Toe Gram Stain - Final 02/24/23 09:30 Wound - Toe Wound Culture - Preliminary Beta streptococcus Dosing Weight Weight used for dosin.4 kg Estimated Creatinine Clearance Estimated Creatinine Clearance: ~125 Goal Trough Goal Trough: 15-20 mcg/mL Pharmacy Plan for Drug Dosing Pharmacy Plan for Drug Dosing: Vancomycin trough drawn 7 hours after previous dose = 12.2, will increase to 2000 mg q8h Pharmacy Service will continue to monitor and adjust dosing as required. Follow-Up Labs Follow-Up Labs: Trough: Vancomycin Date/Time Labs Ordered Labs to be done on [date and time ordered]: 02/26/23 @ 1430 02/25/23 1516 <Electronically signed by Vazquez burt> Date _ Vazquez Lanza 02/25/23 1625 <Electronically signed by Eliu angeles DPM> Cosigner Signature (if applicable): Date Eliu Benites DPM CC: ~ Signed ADDENDUM by Dalila Fischer on 02/25/23 at 1946 02/25/23 @1945: Nursing notified pharmacy that patient was in surgery and 1500 scheduled dose of vancomycin was administered at 1733. Adjusted dose of vancomycin 2000mg IV Q8h for next dose to start 8hrs from 1733 administered dose. Trough was also adjusted from 02/26/23 @1430 to be drawn 02/26/23 @1700, based on new administration times. 02/25/231945 <Electronically signed by Dalila Fischer > Date _ Dalila Fischer Signature (if applicable): Date Eliu Benites DPM cc: ~* Signed [facility] Work Phone: 1(217) 332-469101-09-2024 Progress note Author Levi Carter [facility] February 25, 2023 5:26pm Note Date/Time February 25, 2023 10 :45am [facility] Medical Records Department [address] [place] [address] Progress Note - Hospitalist 02/25/23 1042 MR#: [id number] Acct: [id number] Name: ALESIAHOMER Aurelia Rep #:[id number] : 1975 47 From: Levi Barksdale PCP: Dr. Sun Brar MD Status:A DM IN Location: [facility] [id number] Reason for Visit Reason for Visit: Diagnoses Type 2 diabetes mellitus with diabetic polyneuropathy (02/25/23) Non-pressure chronic ulcer of other part of left foot with fat layer exposed (02/25/23) Other acute osteomyelitis, left ankle and foot (02/25/23) Objective Data Objective Data Vital Signs: Vital Signs Temp Pulse Resp BP Pulse Ox O2 Del Method 97.8 F 85 18 122/77 H 99 Room Air 02/25/23 09:47 02/25/23 09:47 02/25/23 09:47 02/25/23 09:47 02/25/23 09:47 02/25/23 09:47 Oxygen Delivery Method Room Air Weight: 318 lb 6.4 oz Body Mass Index (BMI) 39.8 Intake & Output: Intake and Output for Last 24 Hours 02/23/23 02/24/23 02/25/23 23:59 23:59 23:59 Intake Total 1440.00 / 1840.00 980 / 980 Balance 1440.00 / 1840.00 980 / 980 Lab / Micro Data 02/24/23 13:15 02/25/23 13:25 Labs: Laboratory Results - last 24 hr 02/24/23 09:30: S.aureus Protein A PCR NEGATIVE, MRSA (PCR) Negative 02/24/23 13:15: WBC 8.8, RBC 5.35, Hgb 15.3, Hct 44.9, MCV 83.9, MCH 28.6, MCHC 34.1, RDW Std Deviation 40.3, RDW Coeff of Gabriella 13.3, Plt Count 183, MPV 9.5, Immature Gran % (Auto) 0.300, Neut % (Auto) 63.0, Lymph % (Auto) 28.7, Oceana % (Auto) 5.7, Eos % (Auto) 1.8, Baso % (Auto) 0.5, Absolute Neuts (auto) 5.6, Absolute Lymphs (auto) 2.53, Nucleated RBC % 0, ESR 11, Sodium 136, Potassium 3.8, Chloride 104, Carbon Dioxide 27.0, Anion Gap 5, BUN 16, Creatinine 0.87, Estim Creat Clear Calc 125.45, Est GFR (MDRD) Af Amer 121, Est GFR (MDRD) Non-Af100, BUN/Creatinine Ratio 18.4, Glucose 302 H, Hemoglobin A1c 8.8 H, Calcium 8.5, Magnesium 1.8, Total Bilirubin 0.70, AST 13 L, ALT 32, Alkaline [id number], C-React Prot Ext Range 5.19 H, Total Protein 6.3 L, Albumin 3.3, Globulin 3.0, Albumin/Globulin Ratio 1.1 02/24/23 22:17: POC Glucose 325 H 02/25/23 06:28: POC Glucose 302 H Micro: Microbiology 02/24/23 09:30 Wound - Toe Gram Stain - Final 02/24/23 09:30 Wound - Toe Wound Culture - Preliminary Beta streptococcus Radiography Diagnostic Testing: Radiology Impression Lower Extremity MRI 02/24/23 12:21 IMPRESSION: Osteomyelitis of the second distal phalanx. Arthritic change of the first and second MTP joints. Electronically Signed: Leodan Travis MD at 18:07 EST , Physical Exam Narrative Seen and examined. Patient admitted with left 2nd toe chronic ulcer. Osteomyelitis. Patient is diabetic with high A1c. Physical exam General: Alert, Oriented x3, Cooperative. Morbid obesity BMI 39.8 kg/m? HEENT: Atraumatic, PERRLA, EOMI, Normocephalic Oral: No Gingival or Mucosal Lesions/ Ulcerations Neck: Supple, No JVD, Negative Carotid Bruits Lungs: Air entry diminished in bilateral lung bases. No crepitation/rhonchi Cardiovascular: Regular rate, Regular Rhythm, Normal S1, Normal S2, No murmurs Abdomen: Bowel Sounds Present, Soft, Non Tender, Non-Distended : No renal angle tenderness. No suprapubic tenderness. Extremities: No edema, Capillary Refill Less than 3 Seconds Skin: Left 2nd toe, tip has ulcer. Nonhealing. Musculoskeletal: No Tenderness to Palpation of Joints or Extremities Neurological: Cranial nerves II-XII grossly intact, DTR 2+/4. No acute focal neurological deficit. Psych/Mental Status: Normal Affect, Appropriate. Assessment & Plan Assessment/Plan (1) Acute osteomyelitis of toe of left foot: PLAN: Plan The patient is a 47 y/o M is being admitted for left third toe pain for 2 to 3 days with radiation up to tibial region. History of surgery on the foot by Dr. Benites in the past. Denies fever. Denies new trauma. Patient also has chronic ankle pain and swelling because history of ankle surgery in the past. #1. Left Second toe Acutely Infected Diabetic Wound with Suspected Acute Osteomyelitis: Directly admitted per podiatry. Preliminary wound culture shows beta Streptococcus 1+. MRI foot shows osteomyelitis of second distal phalanx. Marrow edema of the distal phalanx of second toe. CRP mildly elevated although ESR normal. Currently on empiric vancomycin and Zosyn. Patient had a course ofCipro and Doxy few weeks ago. ID was consulted. Patient had partial left second toe amputation on 02/25/2023. Will wait for tissue/operative culture. #2. Diabetes mellitus type II, poorly controlled: A1c 8.8%. Last hemoglobin A1c 04/27/2021 6.4%. 02/26 glucose is high between 250-325. Patient is started on Humalog insulin andLantus insulin. Monitor Accu-Cheks and needs further adjustment. #3. Morbid Obesity: Weight loss and lifestyle changes encouraged, nutrition consulted. #4. DVT prophylaxis: SCDs, DVT prophylaxis. Microbiology Past 72 Hours 02/24/23 09:30 Wound - Toe Gram Stain - Final 02/24/23 09:30 Wound - Toe Wound Culture - Preliminary Beta streptococcus Laboratory Results 02/24/23 09:30: S.aureus Protein A PCR NEGATIVE, MRSA (PCR) Negative 02/24/23 13:15: Hemoglobin A1c 8.8 H, Magnesium 1.8 02/24/23 22:17: POC Glucose 325 H 02/25/23 06:28: POC Glucose 302 H 02/25/23 11:54: POC Glucose 232 H 02/25/23 13:25: Creatinine 0.68 L, Estim Creat Clear Calc 206.04, Est GFR (MDRD)Af Amer 162, Est GFR (MDRD) Non-Af 134, Vancomycin Trough 12.2 Charges/Coding Visit Charges Inpatient E&M: 13022 Subs Hosp L2 02/25/23 1726 <Electronically signed by Levi Carter MD> Cosigner Signature (if applicable): CC: ~ Signed [facility] Work Phone: 1(523) 279-948101-09-2024 Procedure [facility] 02-25-2023 Consult note Author Maksim Albright [facility] February 25, 2023 10:51am Note Date/Time February 25, 2023 10 :51am [facility] Medical Records Department [address] [place] [address] Consultation - Infectious Dx 02/25/23 1047 MR#: [id number] Acct: [id number] Name: HOMER DUMAS Rep #:[id number] : 1975 47 From: Maksim burt MD PCP: Dr. Sun Brar MD Status:A DM IN Location: [facility] [id number] Assessment & Plan Assessment/Plan (1) Acute osteomyelitis of toe of left foot: PLAN: Course of cipro/doxy a few weeks ago. OR planned. On empiric vanc/zosyn. Will follow, thank you (2) Type 2 diabetes mellitus with diabetic polyneuropathy: QUALIFIERS: Diabetes mellitus computer terminal operator insulin use: unspecified computer terminal operator insulin use status Qualified Code(s): E11.42 - Type 2 diabetes mellitus with diabetic polyneuropathy HPI Consult Data Date of Consult: 02/25/23 HPI Narrative Reason for Consultation: osteo HPI Narrative: HOMER DUMAS, is a 47 M with DM neuropathy, trimmed callus on L 2nd toe around 01/28/23 Developed swelling, redness, mild pain, fever, chills. [facility] to [facility] ED02/01, sent home with cipro and doxy which helped his symptoms some. Toe did not return to normal, saw Dr. Benites 02/24/23, sent to ED, admitted on vanc/zosyn. OR planned. Full ROS performed and neg except as noted above. [facility] Medical History COVID-19 Former smoker Hyperglycemia Morbid obesity Non-pressure chronic ulcer of other part of left foot with fat layer exposed Right foot infection Home Medications alfuzosin 10 mg tablet,extended release 24 hr 10 mg PO DAILY 02/24/23 [History Last Taken 02/23/23 22:00] Allergy/AdvReac Type Severity Reaction Status Date / Time No Known Allergies Allergy Verified 02/01/23 15:35 Family History Father Colon cancer Diabetes Skin cancer Mother Hypertension Surgical History History of ankle surgery History of tonsillectomy Hx of foot surgery Social History Smoking Status: Never smoker Smokeless tobacco user: chewing tobacco alcohol intake: current alcohol intake frequency: holidays/special occasions only substance use type: does not use frequency: 1-2 times per week Physical Exam Const alert, oriented x3 and no apparent distress General Appearance: cooperative HEENT normocephalic and head/scalp atraumatic Eyes PERRL and EOMs intact bilaterally Neck supple and No nodes Resp normal air movement and clear to auscultation bilaterally Cardio regular rate and regular rhythm GI soft to palpation, non-tender and non-distended Extremity General Extremity: edema Skin Skin Narrative: L foot wrapped Neuro CN's II-XII intact bilaterally Lab / Micro Data Attestation: I reviewed the patient's lab results. 02/24/23 13:15 02/24/23 13:15 Labs: Laboratory Results - last 24 hr 02/24/23 09:30: S.aureus Protein A PCR NEGATIVE, MRSA (PCR) Negative 02/24/23 13:15: WBC 8.8, RBC 5.35, Hgb 15.3, Hct 44.9, MCV 83.9, MCH 28.6, MCHC 34.1, RDW Std Deviation 40.3, RDW Coeff of Gabriella 13.3, Plt Count 183, MPV 9.5, Immature Gran % (Auto) 0.300, Neut % (Auto) 63.0, Lymph % (Auto) 28.7, Oceana % (Auto) 5.7, Eos % (Auto) 1.8, Baso % (Auto) 0.5, Absolute Neuts (auto) 5.6, Absolute Lymphs (auto) 2.53, Nucleated RBC % 0, ESR 11, Sodium 136, Potassium 3.8, Chloride 104, Carbon Dioxide 27.0, Anion Gap 5, BUN 16, Creatinine 0.87, Estim Creat Clear Calc 125.45, Est GFR (MDRD) Af Amer 121, Est GFR (MDRD) Non-Af100, BUN/Creatinine Ratio 18.4, Glucose 302 H, Hemoglobin A1c 8.8 H, Calcium 8.5, Magnesium 1.8, Total Bilirubin 0.70, AST 13 L, ALT 32, Alkaline [id number], C-React Prot Ext Range 5.19 H, Total Protein 6.3 L, Albumin 3.3, Globulin 3.0, Albumin/Globulin Ratio 1.1 02/24/23 22:17: POC Glucose 325 H 02/25/23 06:28: POC Glucose 302 H Micro: Microbiology 02/24/23 09:30 Wound - Toe Gram Stain - Final 02/24/23 09:30 Wound - Toe Wound Culture - Preliminary Beta streptococcus Imagaing Radiology Impression Lower Extremity MRI 02/24/23 12:21 IMPRESSION: Osteomyelitis of the second distal phalanx. Arthritic change of the first and second MTP joints. Electronically Signed: Leodan Travis MD at 18:07 EST , 02/25/23 1051 <Electronically signed by Maksim Albright MD> Cosigner Signature (if applicable): CC: DPM Dr. Eliu Benites; SONOGRAPHER-C Layne Aguillon; SONOGRAPHER-C Grazyna Esquivel; SONOGRAPHER-Anjana Diaz; Dr. Milla Horner MD; Dr. Cas Sams DO; Dr. Sun Brar MD; Dr. Merle Cunningham MD; Dr. Levi Carter MD; Dr. Maksim Albright MD; ANA Kirkland; ANA Haro; ANA Fofana~ Signed [facility] Work Phone: 1(692) 462-672901-08-2024 Progress note Author Xiomara Manley [facility] February 24, 2023 8:11pm Note Date/Time February 24, 2023 5: 31pm [facility] Medical Records Department [address] [place] [address] Progress Note - Hospitalist 02/24/23 1726 MR#: [id number] Acct: [id number] Name: HOMER DUMAS Rep #:[id number] : 1975 47 From: Xiomara Manley MD PCP: Dr. Sun Brar MD Status:A DM NAV Location: [facility] [id number] Subjective Subjective The patient is a 47 y/o M w/ PMHx: Morbid obesity, Diabetes mellitus type II with chronic neuropathy uncontrolled not on regimen with last HgbA1c noted 04/27/21 6.4%, Former Tobacco use w/ hx right foot third toe subcutaneous tissue ulcer, hallux varus and 2-5 hammertoes with several prior interventions with specifically most recently noted arthroplasty of the right first metatarsal phalangeal joint, arthrodesis 2-4 toes, arthroplasty fifth toe with history of recently trimming his left second toenail with wound following which worsened with 02/01/2023 ED visits secondary to appearance with initiation of ciprofloxacin and doxycycline at that time with some improvement however upon reevaluation in the office with podiatry 02/24/2023 they were concerned for possible osteomyelitis and therefore admitted for further evaluation. Patient denies any recent fevers with onset of the distal toe wound but notes increased fatigue and malaise associated. Patient currently eating and denies any acute complaints. Lengthy discussion had regarding patient's blood sugars and diabetes situation in regard to chronic wounds and wound healing. Patient denies fevers, chills, nausea, emesis, abdominal pain, chest pain or dyspnea. Objective Data Objective Data Vital Signs: Vital Signs Temp Pulse Resp BP Pulse Ox O2 Del Method 98 F 96 18 131/78 H 98 Room Air 02/24/23 13:16 02/24/23 13:16 02/24/23 13:16 02/24/23 13:16 02/24/23 13:16 02/24/23 13:16 Oxygen Delivery Method Room Air Weight: 318 lb 6.4 oz Body Mass Index (BMI) 39.8 Intake & Output: Intake and Output for Last 24 Hours 02/22/23 02/23/23 02/24/23 23:59 23:59 23:59 Intake Total 155.21 / 155.21 Balance 155.21 / 155.21 Lab / Micro Data 02/24/23 13:15 02/24/23 13:15 Labs: Laboratory Results - last 24 hr 02/24/23 13:15: WBC 8.8, RBC 5.35, Hgb 15.3, Hct 44.9, MCV 83.9, MCH 28.6, MCHC 34.1, RDW Std Deviation 40.3, RDW Coeff of Gabriella 13.3, Plt Count 183, MPV 9.5, Immature Gran % (Auto) 0.300, Neut % (Auto) 63.0, Lymph % (Auto) 28.7, Oceana % (Auto) 5.7, Eos % (Auto) 1.8, Baso % (Auto) 0.5, Absolute Neuts (auto) 5.6, Absolute Lymphs (auto) 2.53, Nucleated RBC % 0, ESR 11, Sodium 136, Potassium 3.8, Chloride 104, Carbon Dioxide 27.0, Anion Gap 5, BUN 16, Creatinine 0.87, Estim Creat Clear Calc 125.45, Est GFR (MDRD) Af Amer 121, Est GFR (MDRD) Non-Af100, BUN/Creatinine Ratio 18.4, Glucose 302 H, Calcium 8.5, Total Bilirubin 0.70, AST 13 L, ALT 32, Alkaline Phosphatase 86, C-React Prot Ext Range 5.19 H, Total Protein 6.3 L, Albumin 3.3, Globulin 3.0, Albumin/Globulin Ratio 1.1 Physical Exam Narrative Physical Examination: General: Awake, alert, oriented x 3 and cooperative, seated upright in MS bed, no acute distress, eating. Skin: Normal color, normal turgor, no icterus, no cyanosis except for noted ulceration to the distal second toe with periwound erythema. HEENT: AT/NC, EOMI, PERRLA, MMM. Lungs: CTA bilaterally, moderate effort, mild decrease BL bases, no rales, ronchi or wheezing. Heart: Regular rate and rhythm; no gallop, rub audible. Abdomen: Soft, morbidly obese, NTTP, mildly hyperactive bowel sounds, difficult to assess distention and HSM given habitus. Extremities: No cyanosis, no clubbing, no significant peripheral pitting edema, see skin. Neurological: Patient awake, alert, oriented as noted, cognitive function intact; pupils equally reactive to light and accommodation, cranial nerves grossly normal, moving all 4 extremities, no focal deficits, strength mildly to moderately global decrease secondary to acute presentation, mildly decreased sensation to bilateral lower distal peripheral extremities which from discussions is likely chronic. Psychiatric: Affect appears normal, no acute evidence of depressive or anxiety feelings. Assessment & Plan Assessment/Plan (1) Acute osteomyelitis of toe of left foot: PLAN: Plan The patient is a 47 y/o M w/ PMHx: Morbid obesity, Diabetes mellitus type II with chronic neuropathy uncontrolled not on regimen with last HgbA1c noted 04/27/21 6.4%, Former Tobacco use w/ hx right foot third toe subcutaneous tissue ulcer, hallux varus and 2-5 hammertoes with several prior interventions with group unfortunately trimming his left second toenail with unfortunately wound following which worsened with 02/01/2023 ED visits secondary to appearancewith initiation of ciprofloxacin and doxycycline at that time with some improvement however upon reevaluation in the office with podiatry 02/24/2023 they were concerned for possible osteomyelitis and therefore admitted for further evaluation. #1. Left Second toe Acutely Infected Diabetic Wound with Suspected Acute Osteomyelitis: Directly admitted per podiatry, MRI of the foot being obtained but no formal read as of yet but likely osteomyelitis per discussion with podiatry, ESR normal however CRP mildly elevated, may change on IV vancomycin and IV Zosyn therapy, infectious disease consulted as well, likely plan for OR in a.m. per discussion with podiatry, continue affected extremity elevation above heart when seated and in bed, monitor erythema outline, wound RN consultation per podiatry discretion, offloading/weightbearing per podiatry discretion. #2. Diabetes mellitus type II, poorly controlled: Last hemoglobin A1c noted 04/27/2021 6.4% and patient per report does not begin any regimen thus suspect itis further elevated with significant hyperglycemia currently, will add low-dose twice daily glargine 5 units and will continue with overlapping insulin sliding scale, repeat hemoglobin A1c requested and pending, will continue ADA diet, accuchecks w/ ISS, nutrition consulted for education and teaching. #3. Morbid Obesity: Weight loss and lifestyle changes encouraged, nutrition consulted. #4. DVT prophylaxis: SCDs, chemoprophylaxis per surgery discretion given planned likely OR in AM. Charges/Coding Visit Charges Inpatient E&M: 10607 Subs Hosp L3 02/24/232010 <Electronically signed by Xiomara Manley MD> Cosigner Signature (if applicable): CC: ~ Signed [facility] Work Phone: 1(340) 290-767201-08-2024 History and physical note Author Eliu Benites [facility] February 24, 2023 6:27pm Note Date/Time February 24, 2023 6: 21pm [facility] Medical Records Department [address] [place] [address] History & Physical Exam 02/24/23 1819 MR#: [id number] Acct: [id number] Name: HOMER DUMAS Rep #:[id number] : 1975 47 From: Eliu Benites DPM PCP: Dr. Sun Brar MD Status:A DM NAV Location: [facility] [id number] HPI - General General Date of Admission: 02/24/23 Date of Service: 02/24/23 Chief Complaint: Left 2nd toe infection HPI Narrative HOMER DUMAS, is a 47 M who presents from my office for admission due to left 2nd toe infection with osteomyelitis. He relates he trimmed his toenail to shortseveral weeks ago - toe got really red and swollen, he went to urgent care and they sent him to the ER. He was prescribed Cipro and Doxycycline. He relates he took the antibiotics which helped some but there is still redness and swelling to the toe. There is an ulcer to the tip of the toe. He does not have pain, he does have peripheral neuropathy. He has been ambulating on foot. He relates he feels tired. Xrays in office of his left foot did show erosion of the distal aspect of the distal phalanx of the 2nd toe. He was admitted for further workup and management. [facility] Medical History COVID-19 Former smoker Hyperglycemia Morbid obesity Non-pressure chronic ulcer of other part of left foot with fat layer exposed Right foot infection Home Medications sulfamethoxazole 800 mg-trimethoprim 160 mg tablet (Bactrim DS) 1 tab PO Q12H #10 tabs 08/11/22 [Rx Last Taken Unknown] ciprofloxacin HCl 500 mg tablet (Cipro) 500 mg PO BID #14 tabs 02/01/23 [Rx Last Taken Unknown] doxycycline monohydrate 100 mg capsule 100 mg PO BID #14 CAPSULES 02/01/23 [Rx Last Taken Unknown] Allergy/AdvReac Type Severity Reaction Status Date / Time No Known Allergies Allergy Verified 02/01/23 15:35 Family History Father Colon cancer Diabetes Skin cancer Mother Hypertension Surgical History History of ankle surgery History of tonsillectomy Hx of foot surgery Social History Smoking Status: Never smoker Smokeless tobacco user: chewing tobacco alcohol intake: current alcohol intake frequency: holidays/special occasions only substance use type: does not use frequency: 1-2 times per week Vital Signs Vital Signs Vital Signs: 02/24/23 13:02 02/24/23 12:05 02/24/23 13:16 Temperature 98 F 98 F Temperature Source Oral Oral Pulse Rate 96 96 Respiratory Rate 18 18 18 Blood Pressure 131/78 H 131/78 H Blood Pressure Mean 95 95 Blood Pressure Source Monitor Blood Pressure Position Semi-Fowlers Blood Pressure Location Right Arm Pulse Ox 98 98 Oxygen Delivery Method Room Air Room Air Room Air 02/24/23 17:46 Temperature Temperature Source Pulse Rate Respiratory Rate Blood Pressure Blood Pressure Mean Blood Pressure Source Blood Pressure Position Blood Pressure Location Pulse Ox 98 Oxygen Delivery Method Room Air Weight Weight: 144.424 kg Body Mass Index (BMI) 39.8 Physical Exam Narrative Left foot - there is ulceration to the distal 2nd toe probes close to bone, there is erythema and edema to the toe - worse at distal aspect, there is serousdrainage from the ulcer, margins are viable, there is some granular tissue in the wound but also some nonviable tissue, there is no other wounds or erythema or edema to the left foot, ankle or leg. No crepitus, no fluctuance, no visible abscess to the left foot, ankle or leg. DP and PT pulses palpable left with CFT < 2 sec to all toes, there is decreased sensation to touch to the left foot. Left 2nd toe is elongated with some hammer toe contracture as well. The other lesser toes also with hammer toe contracture on the left foot. Right foot with no open lesions, no evidence of infection, no ischemia at this time. Const alert, oriented x3 and no apparent distress Results Lab / Micro Data 02/24/23 13:15 02/24/23 13:15 Labs: Laboratory Results - last 24 hr 02/24/23 13:15: WBC 8.8, RBC 5.35, Hgb 15.3, Hct 44.9, MCV 83.9, MCH 28.6, MCHC 34.1, RDW Std Deviation 40.3, RDW Coeff of Gabriella 13.3, Plt Count 183, MPV 9.5, Immature Gran % (Auto) 0.300, Neut % (Auto) 63.0, Lymph % (Auto) 28.7, Oceana % (Auto) 5.7, Eos % (Auto) 1.8, Baso % (Auto) 0.5, Absolute Neuts (auto) 5.6, Absolute Lymphs (auto) 2.53, Nucleated RBC % 0, ESR 11, Sodium 136, Potassium 3.8, Chloride 104, Carbon Dioxide 27.0, Anion Gap 5, BUN 16, Creatinine 0.87, Estim Creat Clear Calc 125.45, Est GFR (MDRD) Af Amer 121, Est GFR (MDRD) Non-Af100, BUN/Creatinine Ratio 18.4, Glucose 302 H, Hemoglobin A1c 8.8 H, Calcium 8.5, Magnesium 1.8, Total Bilirubin 0.70, AST 13 L, ALT 32, Alkaline [id number], C-React Prot Ext Range 5.19 H, Total Protein 6.3 L, Albumin 3.3, Globulin 3.0, Albumin/Globulin Ratio 1.1 Imagaing Radiology Impression Lower Extremity MRI 02/24/23 12:21 IMPRESSION: Osteomyelitis of the second distal phalanx. Arthritic change of the first and second MTP joints. Electronically Signed: Leodan Travis MD at 18:07 EST Reading Location ID and State: [address] [place] [address] , Service support , Assessment & Plan Assessment/Plan (1) Acute osteomyelitis of toe of left foot: (2) Type 2 diabetes mellitus with diabetic polyneuropathy: QUALIFIERS: Diabetes mellitus computer terminal operator insulin use: unspecified intermediate insulin use status Qualified Code(s): E11.42 - Type 2 diabetes mellitus with diabetic polyneuropathy (3) Non-pressure chronic ulcer of other part of left foot with fat layer exposed: PLAN: Plan Evaluation preformed. Reviewed diagnostic data. MRI reviewed and findings c/w osteomyelitis to the left 2nd toe distal phalanx. A culture has been obtained, he has been started on Vanc and Zosyn, ID service has been consulted. Discussed options with patient - amputation vs antibiotics and trying to save toe - reviewed possible benefits vs risks - he is thinking about options at thistime. Patient noted to have elevated blood sugar - Hospitalist consulted. Discussed with Dr. Manley, appreciate assistance. Wound care left 2nd toe - betadine soln and gauze dressing change. Keep offloaded at all times. Possible surgery tomorrow on left 2nd toe pending patient's decision. 02/24/23 1827 <Electronically signed by Eliu Benites DPM> Cosigner Signature (if applicable): CC: ARI Benites; Dr. Sun Brar MD~ Signed [facility] Work Phone: 1(266) 703-608701-08-2024 Consult note Author Maksim Pinkffy [facility] February 24, 2023 3:27pm Note Date/Time February 24, 2023 3: 23pm [facility] Medical Records Department [address] [place] [address] Pharmacokinetic/Renal -Consult 02/24/23 1522 MR#: [id number] Acct: [id number] Name: HOMER DUMAS Rep #:[id number] : 1975 47 From: Maksim Fink PCP: Dr. Sun Brar MD Status:A DM NAV Y Location: [place] [address] Consult Antibiotic Management Pharmacy has been consulted to manage selected antibiotic: Vancomycin Type of Intervention Type of Consult: New start Suspected Infection Suspected Infection: Osteomyelitis Prior Doses of Antibiotics Prior Doses of Antibiotics Received/Current Regimen: Given loading dose of 2000mg x 1 on 02.24.24 @1407. Labs Labs: Sodium 136 mmol/L (136-145) 02/24/23 13:15 Potassium 3.8 mmol/L (3.5-5.1) 02/24/23 13:15 Chloride 104 mmol/L (98-107) 02/24/23 13:15 Carbon Dioxide 27.0 mmol/L (21.0-32.0) 02/24/23 13:15 Anion Gap 5 (5-15) 02/24/23 13:15 BUN 16 mg/dL (7-18) 02/24/23 13:15 Creatinine 0.87 mg/dL (0.70-1.30) 02/24/23 13:15 Est GFR (MDRD) Af Amer 121 mL/min (>60) 02/24/23 13:15 Est GFR (MDRD) Non-Af 100 mL/min (>60) 02/24/23 13:15 BUN/Creatinine Ratio 18.4 RATIO (10-20) 02/24/23 13:15 Glucose 302 mg/dL (74-106) H 02/24/23 13:15 Dosing Weight Weight used for dosin.4 kg Estimated Creatinine Clearance Estimated Creatinine Clearance: >100ml/min Goal Trough Goal Trough: 15-20 mcg/mL Pharmacy Plan for Drug Dosing Pharmacy Plan for Drug Dosing: Recommend regimen of 1500mg iv q8h beginning 8hrs after 2000mg loading dose. Trough level before 4th total dose on 02.25.23. Pharmacy Service will continue to monitor and adjust dosing as required. Follow-Up Labs Follow-Up Labs: Trough: Vancomycin (02.25.23 @1330 before 1400 dose) 02/24/23 1527 <Electronically signed by Maksim Fink> Date _ Maksim Michelle Signature (if applicable): Date CC: ~ Signed [facility] Work Phone: 1(180) 398-843512-16-2023 Discharge summary Author Ovidio Mamadou [facility] February 01, 2023 6:09pm Note Date/Time February 01, 2023 3:57pm [facility] Medical Records Department [address] [place] [address] Emergency Department Summary 02/01/23 MR#: [id number] Acct: [id number] Name: HOMER DUMAS Rep #:[id number] : 1975 47 From: Ovidio Cedillo DO PCP: Dr. Sun Brar MD Status:R EG ER Location: ED HPI History of Present Illness Chief Complaint: Other, Pain/Inj Narrative Narrative: 47-year-old male with 2 to 3 days of left third toe pain. He states he started to radiate up his foot and into his tibial region. He has a history of surgery on this foot he states is performed by Dr. Benites. He does follow-up with Dr. Benites regularly for basic footcare. Patient is not a diabetic. Patient states that he has had infections in his feet. Patient notes that he has not had a fever but feels mildly unwell. He might have body aches but no chills or fevers. Denies any new trauma. He states that the pain does radiate up into his ankle but he also has chronic ankle pain because he has broken the ankle andit is chronically swollen. PFSH PFSH Medical History COVID-19 Former smoker Hyperglycemia Morbid obesity Non-pressure chronic ulcer of other part of left foot with fat layer exposed Right foot infection Home Medications sulfamethoxazole 800 mg-trimethoprim 160 mg tablet (Bactrim DS) 1 tab PO Q12H #10 tabs 08/11/22 [Rx Last Taken Unknown] ciprofloxacin HCl 500 mg tablet (Cipro) 500 mg PO BID #14 tabs 02/01/23 [Rx Last Taken Unknown] doxycycline monohydrate 100 mg capsule 100 mg PO BID #14 CAPSULES 02/01/23 [Rx Last Taken Unknown] Allergy/AdvReac Type Severity Reaction Status Date / Time No Known Allergies Allergy Verified 02/01/23 15:35 Family History Father Colon cancer Diabetes Skin cancer Mother Hypertension Surgical History History of ankle surgery History of tonsillectomy Hx of foot surgery Social History Smoking Status: Never smoker Smokeless tobacco user: chewing tobacco alcohol intake: current alcohol intake frequency: holidays/special occasions only substance use type: does not use frequency: 1-2 times per week ROS ROS ED Constitutional Constitutional ED: Denies chills, fever(s) or sweats Eyes Eyes: Denies blurry vision or change in vision ENT ENT ED: Denies ear pain or sore throat Cardiovascular Cardiovascular: Denies chest pain, palpitations or racing heartbeat Respiratory/Chest Respiratory/Chest: Denies cough, dyspnea or sputum Gastrointestinal Gastrointestinal: Denies abdominal pain, constipation, diarrhea, nausea or vomiting Genitourinary Genitourinary ED: Denies dysuria, hematuria or urinary frequency Musculoskeletal Musculoskeletal: Denies arthralgias, myalgias or neck pain Integumentary Reports rash and other Details: Mild erythema left third toe ; Denies abscess or Abrasions Neurologic Neurologic: Denies headache(s), paresthesias or weakness Psychiatric Psychiatric: Denies anxiety, depression, suicidal ideation or suicidal thoughts Endocrine Endocrinology: Denies polydipsia or polyuria EXAM Physical Exam Const Vital Signs: 02/01/23 15:31 02/01/23 15:47 Temperature 97.8 F Temperature Source Temporal Pulse Rate 98 Respiratory Rate 15 Respiratory Pattern Normal Blood Pressure 128/85 H Blood Pressure Mean 99 Pulse Ox 96 Oxygen Delivery Method Room Air Positive well nourished General Appearance ED: NAD HEENT normocephalic and atraumatic Neck full ROM Chest Wall inspection of chest normal Resp normal respiratory effort Cardio regular rate and regular rhythm Extremity Extremity Narrative: Mild erythema to left third toe. No increased warmth. There is a small wound at the distal aspect of the fat pad of the left third toe without increased erythema, drainage, induration surrounding. There is no tenderness to palpationof this toe on examination. Pedal pulses 2+ on the left foot. Left ankle nontender to palpation. No crepitance throughout. Calf soft nontender with no cords palpated. Compartments are soft. Neuro oriented x3 and CN's II-XII intact bilaterally Sensorium / Orientation: alert Motor Exam: strength 5/5 throughout Psych mental status grossly normal Skin no wounds MDM MDM MDM Narrative Medical decision making narrative: Patient presenting with mild general illness and increased left foot and calf pain. He went to urgent care who told to come to the emergency room for this. No systemic signs or symptoms otherwise. He has not a fever. On examination hehas some erythema noted to the left third toe and there is some erythema mostly at the base of it but there is no tenderness, crepitance, increased warmth. Pedal pulses are intact in left foot. Left calf is nontender. Will obtain CBC to assess white blood cell count, hemoglobin, platelets. BMP to assess renal function, electrolytes. CRP and ESR to assess inflammatory markers. X-rays of the left foot and ankle will be obtained. Patient declines analgesia or antiemetics. He states he feels comfortable at this time. CBC shows no leukocytosis with a white blood cell count of 9.6. Hemoglobin stable 15.2. Platelets normal 241. Renal function electrolytes within normal limits. LFTs are normal. ESR within normal limits. CRP minimally elevated 11.60. X-rays ofthe left foot and left ankle show no acute findings on my interpretation. The radiologist interprets this and agrees. Discussed the case with Dr. Monte whorecommended starting the patient on Cipro and doxycycline for broad-spectrum coverage. Patient is to be placed in a postop shoe. He is to keep the wound clean and dry. Dr. Whitney states he can follow-up with them office on Friday. Patient discharged stable condition. Impression: 1. Left foot cellulitis Lab Data Attestation: I reviewed the patient's lab results. Labs: Laboratory Results - last 24 hr 02/01/23 16:00 WBC 9.6 RBC 5.33 Hgb 15.2 Hct 44.1 MCV 82.7 MCH 28.5 MCHC 34.5 RDW Std Deviation 39.6 RDW Coeff of Gabriella 13.2 Plt Count 241 MPV 9.9 Immature Gran % (Auto) 0.300 Neut % (Auto) 58.2 Lymph % (Auto) 32.3 Oceana % (Auto) 6.5 Eos % (Auto) 2.2 Baso % (Auto) 0.5 Absolute Neuts (auto) 5.6 Absolute Lymphs (auto) 3.11 Nucleated RBC % 0 ESR 13 Sodium 138 Potassium 3.5 Chloride 107 Carbon Dioxide 27.0 Anion Gap 4 L BUN 15 Creatinine 0.97 Est GFR (MDRD) Af Amer 107 Est GFR (MDRD) Non-Af 88 BUN/Creatinine Ratio 15.5 Glucose 181 H Calcium 8.9 Total Bilirubin 0.50 AST 18 ALT 30 Alkaline Phosphatase 107 C-React Prot Ext Range 11.60 H Total Protein 6.7 Albumin 3.4 Globulin 3.3 Albumin/Globulin Ratio 1.0 Radiography Diagnostic Testing: Clinical Impression(s) from Imaging Studies Ankle X-Ray 02/01/23 15:51 IMPRESSION: Chronic bony changes as described. Mild soft tissue swelling. Electronically Signed: Leyv Rios MD at 16:42 EST , Foot X-Ray 02/01/23 16:10 IMPRESSION: No acute bone or joint abnormality. Stable arthroses as described. Electronically Signed: Levy Rios MD at 16:35 EST , Discharge Plan Triage Chief Complaint: Other, Pain/Inj ED Provider: Ovidio Cedillo Dx/Rx/DC Orders Instructions: ED Cellulitis Prescriptions: New ciprofloxacin HCl [Cipro] 500 mg tablet 500 mg PO BID Qty: 14 0RF doxycycline monohydrate 100 mg capsule 100 mg PO BID Qty: 14 0RF No Action sulfamethoxazole-trimethoprim [Bactrim DS] 800-160 mg tablet 1 tab PO Q12H Qty: 10 0RF Primary Care Provider: Sun Brar Referrals: Ayad Monte DPM [Med Staff - Active Staff] - 3-5 Days Sun Brar MD [Primary Care Provider] - Disposition Disposition: Home, Self Care What to do if you have Problems For any increased pain, shortness of breath, bleeding, nausea or vomiting, chestpain, or any unexpected problems, contact your Primary Care Provider. Call [facility] ([phone]) or report to the closest Emergency Room. Call 911 if necessary. 02/01/231808 <Electronically signed by Ovidio Cedillo DO> Cosigner Signature (if applicable): CC: Dr. Sun Brar MD ~ Signed [facility] Work Phone: [phone]) 958-774812-16-2023 NoteHNO ID: [id number] Author: Javier Sanchez MD Service: ? Author Type: Physician Type: [...] acute distress. Accompanied by his . Red jah at the tip of the left 2nd toe. 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 Erythema and swelling of the mid lower leg, ankle, and foot. ASSESSMENT/PLAN: 1. Cellulitis of left foot - ICD9: 682.7, ICD10: L03.116 Advised ER evaluation and treatment for progressive infection with progressive signs and systemic symptoms. He will go to [facility]. Report sent by ER Pass[employer]. Javier Sanchez [facility]12-16-2023 History of Present illness Narrative* Javier Sanchez MD - 02/01/2023 3:20 PM EST Patient presents with: Infection: 2nd toe on left food HPI: Skin Lesion: Location: started in the left 2nd toe, worst where it meets the foot, but painful and swollen up tothe calf Duration: few days Pruritis/Pain: painful Feels [...] acute distress. Accompanied by his . Red jah at the tip of the left 2nd toe. 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 Erythema and swelling of the mid lower leg, ankle, and foot. ASSESSMENT/PLAN: 1. Cellulitis of left foot - ICD9: 682.7, ICD10: L03.116 Advised ER evaluation and treatment for progressive infection with progressive signs and systemic symptoms. He will go to [facility]. Report sent by PANKAJ Roberson. Javier Sanchez MD documented [facility] Discharge instructions Patient Education 09/21/2022 19:57:40 Abscess, Incision [...] may be told to remove it yourself. Youmay do this in the shower. Once the [...] Boil returns when you are at home 6112-4116 [employer] [address] [place] [address]. All rights reserved. This information is not intended as a substitute for professional medical care. Always follow yourhealthcare professional's instructions. Follow Up Care 09/21/2022 17:28:55 With:LUC SWAIN MD, Plizy Address: [address] [place] [phone] When:2-4 days Comments:Schedule appointment as soon as possible With:SUN BRAR MD Address: [address] [place] [phone] When:2-4 days [facility] 2023 Note Discharge Instructions Thank you for allowing [place] to assist you with your healthcare needs. The following is importantdischarge information regarding your hospital visit. Diagnosis from Today's Visit Cyst What to Do Next Instructions from Your Care Team Take all of your antibiotic. For worsening signs of infection. No qualifying data available. Post Acute Orders No qualifying data available. You Need to Schedule the Following Appointments Follow Up with LUC SWAIN MD, Plizy When Within 2-4 days Why: Schedule appointment as soon as possible Where: [address] [place] [phone] Follow Up with SUN BRAR MD When Within 2-4 days Where: [address] [place] [phone] Allergies NKA Medications Please ask your primary doctor or pharmacist before taking any other medication not listed, including over the counter drugs, herbal medications, vitamins and or supplements as they may interact withyour home medications. What How Much When Instructions [...] pill whole, or break the pill in halfand take both halves one at a time. Tell your doctor if you have trouble swallowing a whole or halfpill. You must chew the chewable tablet before [...] body. Symptoms may include skin rash, fever, swollenglands, muscle aches, severe weakness, unusual bruising, or [...] may report side effects to FDA at [phone]. What other drugs will affect amoxicillin and clavulanate potassium? Tell your doctor about all your other medicines, especially: allopurinol; probenecid; or a blood thinner--warfarin, Coumadin, Jantoven. This list is not complete. Other drugs may affect amoxicillin and clavulanate potassium, including prescription and prjj-dvw-pmagblt medicines, vitamins, and herbal products. Not all [...] to ensure that the information provided by [employer] ('[employer]') is accurate, up-to-date, and complete, but no guarantee is made to that effect. Drug information contained herein may be time sensitive. [employer] information has been compiled for use by healthcare practitioners and consumers in the [place] and therefore [employer] does not warrant that uses outside of the [place] are appropriate, unless specifically indicated otherwise. [employer]'s drug information does not endorse drugs, diagnose patients or recommend therapy. [employer]'s drug information isan informational resource designed to assist licensed healthcare practitioners in caring for their p atients and/or to serve consumers viewing this service as a supplement to, and not a substitute for, the expertise, skill, knowledge and judgment of healthcare practitioners. The absence of a warningfor a given drug or drug combination in no way should be construed to indicate that the drug or drug combination is safe, effective or appropriate for any given patient. [facility] does not assume any responsibility for any aspect of healthcare administered with the aid of information [facility] provides. The information contained herein is not intended to cover all possible uses, directions, precautions, warnings, drug interactions, allergic reactions, or adverse effects. If you have questions about the drugs you are taking, check with your doctor, nurse or pharmacist. Copyright 0613-5236 [employer]. Version: 14.. Revision Date: 11/23/2021. Education Materials [...] may be told to remove it yourself. Youmay do this in the shower. Once the [...] Boil returns when you are at home 5584-5615 [employer] [address] [place] [address]. All rights reserved. This information is not intended as a substitute for professional medical care. Always follow yourhealthcare professional's instructions. Additional Information VACCINATE! IT SAVES LIVES! Members of the community who have not yet received the COVID-19 vaccine and would like to receive it can visit one of [facility] vaccine clinics. There are many vaccine clinic locations within the [facility]. For locations and available times, please visit www.gettheshot.coronavirus.[place].gov/. It is important to note that some COVID mobile vaccine clinics are held outdoors and may be canceled in rainy or stormy conditions. To learn more about pediatric vaccinations (ages 5-11), we invite you to visit the [facility] webpage. [email or web address]/pages/[email or web address]-Lgput-Intntwvrkvb-Mzmbhwyklo-Dmwox-Mgd stions.htmlTo learn more about the COVID-19 vaccine, we invite you to visit the CDC website for a list of frequently asked questions. https://www.cdc.gov/coronavirus/2019-ncov/vaccines/faq.html [facility] Patient Portal Access Instructions: Stay connected with your healthcare team and access your personal medical information anytime with the [facility] Patient Portal. If you would like a full copy of your medical records please contact the [facility] Medical Records Department Friday through Friday between 8a.m. and 4:30p.m. Please follow the directions below to access the portal: 1.Access the email account you provided upon registration to the hospital.2.Look for an invitation email from [facility].3.Open the email and access the invitation link: Accept Invitation to [facility]4.Fill in the required douglas to create your account. Sign into [email or web address] with your username and password that you [...] you will allow to register on the [place] [facility] Patient Portal for access to your information. You can also access the [facility] Patient Portal on the myseekit. Simply click on Health Records under [employer] and then click on the Joey logo. HOW TO SAFELY DISPOSE OF PRESCRIPTION MEDICATIONS Please use one of the following methods to safely dispose of your unused medications. 1.Use a drug disposal kit: the drug disposal pouch allows you to safely discard your old and unuseddrugs. Ask your nurse to give you one when you are discharged.2.Visit a local take-back location: Many local pharmacies and police departments have programs that collect old and unwanted prescriptiondrugs. Call your local pharmacy or go to http://bit.Namely/9U6Bs2w to find one close to you.3.Make use of household items: Use cat litter or old coffee grounds to dispose medications if other options arenot available. Mix your drugs with these household products, seal them in an airtight container andthrow it into the garbage. Call [facility]: [phone] to be sure your drugs can be [...] drowsiness, such as benzodiazepines, also known as benzos,including diazepam and alprazolam, muscle relaxants or sleep aids. Never sell or share prescriptionopioids. This is illegal. Store opioids in a [...] reviewed and explained to me and I,HOMER DUMAS understand my current condition and have read and understand these discharge instructions. I have received a written copy of the plan/instructions. If I have questions, I am aware that I should contact my d octor. 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 documented in this [facility]12-[facility]-2022 History of Present illness Narrative* Evelyn Shannon APRN.CNP - 01/22/2022 10:49 AM EST Subjective The history is provided by the patient. No foreign language interpreter was used. HPI Homer Dumas is a 46 year old male who presents today for CC of cough and sore throat that stared at thanksgiving. He has used multiple otc without relief. He is also having mild sinus pressureand congestion, post nasal drainage BP 136/74 Pulse [...] have confirmed and edited as necessary, the [facility] Review of Systems Constitutional: Negative for chills, [...] for higher level of care were discussed indetail warranting prompt ER evaluation. Evelyn Shannon APRN.[facility] documented in this encounterLicking [facility]08-31-2022 History of Present illness Narrative* Jamee Nguyen APRN.CNP - 10/17/2021 8:17 AM EDT Homer Dumas is a 46 year old male who [...] care and started on doxycycline for days. Henoticed an improvement over the last few days. [...] prostate Ca:no VITALS: Height 190.5 cm (6' 3), weight (!) 191.4 kg (422 lb). ALLERGIES: [...] -contact our office if symptoms persist Jamee gNuyen APRN.[facility] Patient is instructed to schedule a follow up as needed. documented in this encounterLicking [facility] Hospital05-23-2022 Instructions* Patient Instructions* Shanice Damian RD - 07/09/2021 10:33 AM [...] start. Work on core and back exercises [email or web address] documented in this encounterLicking [facility] Hospital05-23-2022 History of Present illness Narrative* Shanice Damian RD - 07/09/2021 10:08 AM EDT Nutrition Therapy Initial Assessment Nutrition Diagnosis: Overweight/obesity, [...] start. Work on core and back exercises [email or web address] Monitoring & Evaluation: 1-2 pound weightloss per week Need for Follow up: 1 month Patient presents for initial MNT as relates to prediabetes and for weight loss. States long historyof weight disorder. Not sleeping well . Has tried ideal protein diet losing 80 lbs; tried restricting .Feels unhealthy relationship with food, tends to stress eat., eat to overfull. Intake noted for skipped meals, usually skips breakfast, tends to eat larger portions. Currently following lower carbeating. Beverages appropriate. No regular exercise and limited activity during the day . Activity limited by back pain. 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 Snack - not usually Lunch - [...] Readings: Date: Ht: 07/09/2021 190.5 cm (6' 3) Current weight: Last 1 Encounter Wt Readings: [...] Physical limitations affecting learning: None Referred/Supervised by: Petra GALLEGOS Billing Type: Initial Assess/15 min 2 units SIGNATURE: Shanice Damian RD PATIENT NAME: Homer Dumas DATE: July 09, 2021 TIME: 10:11 AM documented in this encounterLicking [facility] Hospital04-29-2022 History of Present illness Narrative* Telly Salcedo, PT - 06/15/2021 9:43 AM EDT Episode Visit Count: 4 Therapist That Will Oversee The Plan Of Care: Telly Matias Start of Care Date: 05/23/21 Onset Date: 04/25/21 Plan of Care Certification Date: 05/23/21 Next Certification Due Date: 07/23/21 REHABILITATION AND SPORTS THERAPY PHYSICAL THERAPY PROGRESS REPORT PLAN OF CARE UPDATE: Assessment: Homer Dumas demonstrates significant improvement in rising from a chair, standing and walking . He hasprogressed toward goals. 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 Current prognosis is Gooddue to: current objective clinical presentation;good overall health status;positive past response to therapy;within-session changes;good support system/ coping skills . He will benefit from continuedskilled therapy services to meet the updated goals for this plan of care as noted below. Goals updated on 06/15/2021. Goals for Episode of Care: created on 05/23/21 through 08/01/21 [place] in home exercise program. Partially met Patient [...] Patient to be seen for Therapeutic exercise (99609);Neuromuscular re-education (59396);Manual therapy (42212);Therapeutic activities (17382);Self-snf management (28173);Gait Training (50272);Patient/Family/Caregiver Education;Body Mechanics Training PLAN FOR NEXT VISIT: [place] SUBJECTIVE: Patient Reason for Visit: Pt doing [...] and assessment of patient's response to intervention. Self-Longterm Management: 1: Discussed self STM at home, [...] 25 Telly Salcedo PT documented in this encounterLicking [facility] Hospital04-27-2022 History of Present illness Narrative* Telly Salcedo PT - 06/13/2021 9:46 AM EDT Episode Visit Count: 3 Therapist That Will Oversee The Plan Of Care: Telly Salcedo Start of Care Date: 05/23/21 Onset Date: 04/25/21 Plan of Care Certification Date: 05/23/21 Next Certification Due Date: 06/06/22 REHABILITATION AND SPORTS THERAPY PHYSICAL THERAPY TREATMENT NOTE ASSESSMENT: Homer Dumas tolerated the session with decreased pain, expected muscle soreness and no issues. He demonstrated difficulty with concentric hamstring use. The patient will continue to benefit from ongoing skilled physical therapy to progress toward set goals. PLAN FOR NEXT VISIT: [place] SUBJECTIVE: Patient Reason for Visit: Pt. reports swing phase of gait due to knee flexion botheringhim most. Over the last week, the R LE has felt less stable when initially standing or putting weight on it. Symptoms are localized to the distal biceps femoris. Reports no adherance to HEP this pastweek. Pain: Pain Pain Level: 3 Pain Location: [...] w/ eccentric lowering 3 sec- 2x15 2: Glr-js-Njorio off mat table: 2x10 3: Isotonic Prone [...] the patient for the entire session on thisdate. All documentation was reviewed and agreed upon. Telly Salcedo PT documented in this encounterL[facility]04[facility] History of Present illness Narrative* Telly Salcedo, PT - 05/31/2021 9:58 AM EDT Episode Visit Count: 2 Therapist That Will Oversee The Plan Of Care: Telly Salcedo Start of Care Date: 05/23/21 Onset Date: 04/25/21 Plan of Care Certification Date: 05/23/21 Next Certification Due Date: 07/23/21 REHABILITATION AND SPORTS THERAPY PHYSICAL THERAPY TREATMENT NOTE ASSESSMENT: Homer Dumas tolerated the session with fatigue, expected muscle soreness and no issues. He demonstrated difficulty with lowering during nfz-qb-bsjvzl and other concentric hamstring contractions. The patient will continue to benefit from ongoing skilled physical therapy to progress toward set goals. PLAN FOR NEXT VISIT: IASTM, STM to distal biceps femoris tendon. Continue finding tolerable interventions that strengthen the hamstring. SUBJECTIVE: Patient Reason for Visit: Pt. reports to therapy reporting of Rt. hamstring weakness with nvx-vg-mxnij and intial walking. Reports getting in the [...] w/ eccentric lowering 3 sec- 2x10 2: Hvt-pt-Xuiiar off mat table: 2x10 3: Isometric hamstring [...] the patient for the entire session on thisdate. All documentation was reviewed and agreed upon. Telly Salcedo PT documented in this encounterLicking [facility]04-06-[facility]22 History of Present illness Narrative* Telly Salcedo PT - 05/23/2021 7:33 AM EDT Episode Visit Count: 1 Therapist That Will Oversee The Plan Of Care: Telly Salcedo Start of Care Date: 05/23/21 Onset Date: 04/25/21 Plan of Care Certification Date: 05/23/21 Next Certification Due Date: 07/23/21 Patient Identified by Name and Date of : Yes REHABILITATION AND SPORTS THERAPY PHYSICAL THERAPY EVALUATION PLAN OF CARE: Assessment: Homer Dumas presents with chief complaint of Right hamstring pain/symptoms that interferes with walking;walking in the community;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 He presents with impairments in ADL's, flexibility, gait, overall function, st rength and tissue tenderness. PROMIS (Patient-Reported Outcomes Measurement Information System) scores were reviewed and physical function domain, social roles domain identified as a rehabilitation concern. Prognosis for therapy is Good due to: current objective clinical presentation;acuteness of co ndition;within-session changes;good support system/ coping skills . He will benefit from skilled therapy services to meet the goals established for this plan of care as noted below. Goals for Episode of Care: created on 05/23/21 through 08/01/21 [place] in home exercise program. Patient will demonstrate increase in Rt. LE strength to 5/5 during manual muscle testing in order to improve function for basic self-care tasks, home management tasks, leisure / recreation skills andwork tasks. Patient will decrease pain rating by [...] Planned: 8 Planned Treatment Interventions: Therapeutic exercise (57593);Neuromuscular re- education (34836);Manual therapy (74234);Therapeutic activities (84667);Self- snf management (23817);Gait Training (04659);Patient/Family/Caregiver Education;Body Mechanics Training PLAN FOR NEXT VISIT: IASTM, STM and hamstring stripping. Stretching and light strengthening exercises to pt. tolerance. Patient demonstrates good understanding of plan of care and treatment. The above goals and plan of care were discussed and agreed upon by patient/family. SUBJECTIVE: Homer Dumas is a 45 year old male seen today for Pt. arrives to therapy in Lt. boot (foot ulcer) and w/ a crutch on the Rt. side. He complains of lateral posterior hamstring pain during all active movement and weightbearing activities. Patient describes getting into his tub shower and walking as his biggest deficit currently. No pain/symptoms during sitting or lying down, his sleepis not affected as well. 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 Self-Longterm Management: 1: Discussion and education of the importance of hamstrings during gait and everyday ADL's, anatomyand tissue healing of the injury, POC, HEP, [...] Minutes (timed and untimed codes) : 46 Jesus Anton, SPT Supervising therapist was present and guided the care of the patient for the entire session on thisdate. All documentation was reviewed and agreed upon. Telly Salcedo PT documented in this encounterLicking [facility]04-01-2022 History of Present illness Narrative* Jo-Ann Merritt Ma - 05/18/2021 11:06 AM EDT PT ASSESSMENT - CASTING ROOM Homer presents for Application of brace. Applied XXL wrap around hinged knee brace to Right knee. Patient electronically signed Abhishek SCHMITZ. Patient has been instructed in Care and proper application of brace. Jo-Ann Merritt Ma * Kali Caceres V, DO - 05/18/2021 10:53 AM EDT SUBJECTIVE: Homer Dumas is a 45 year old male who is here for a right leg injury. It occurred 2 weeks ago when he was walking, felt a pop and burning sensation behind the right knee. Symptoms include pain, tighness in the right leg along the lateral aspect of the posterior knee.. He was seen in [facility],x-rays were negative for acute bony injury and ultrasound was ordered which was negative for DVT. He has been ambulating with a crutch and using Advil for pain. He states that there are times when itstarts to feel better but if he strains or moves quickly he notices the pain returns. To be noted, he had been on Levaquin for a lower extremity cellulitis several weeks prior to the injury. PAST MEDICAL HISTORY Diagnosis Date NEGATIVE MEDICAL HISTORY PAST SURGICAL HISTORY Procedure Laterality Date NONE Current Outpatient Medications on File Prior to Visit Medication Sig Mejrizijnapvygd-Hjpdtcsfw-YI (BROMFED DM) 2-30-10 mg/5 mL syrup Take 5 mL by mouth four times dailyas needed. (Patient not taking: Reported on 02/26/2021 ) albuterol HFA (PROAIR HFA) 90 mcg/actuation inhaler Inhale 2 Puffs as instructed every 4 hours as needed. (Patient not taking: Reported on 02/26/2021 ) benzonatate (TESSALON PERLE) 100 mg capsule Take 1-2 capsules tid prn (Patient not taking: Reportedon 01/28/2019 ) No current facility-administered medications on [...] over extension and stability Kali Caceres DO * Jo-Ann Merritt Ma - 05/18/2021 10:35 AM EDT AMB ROOMING INTAKE FLOWSHEET DATA Risk Screening Do you have concerns about personal safety or safety in the home?: No Pain Pain Level: 10 (when weight bearing) Pain Location: (posterior knee) Description: Burning, Other: See comment (shocking) Duration Amount of Time: 2 Duration Units: Weeks Frequency: Intermittent Intervention/Comfort measure: Other: See comment (none) documented in this encounterLicking [facility] Hospital04-01-2022 Instructions* Patient Instructions* Kali Caceres V, DO - 05/18/2021 10:57 AM EDT Thank you for choosing the [facility] for your acute care [...] physician or booking an appointment, please call [phone] or speak with any Patient [employer] Supervisor. Hours: Friday through Friday 7:30 am to 7:00 pm. Friday and Friday: 8:00 am to 2:30 pm. documented in this encounterLicking [facility] Hospital03-24-2022 Miscellaneous Notes* Telephone Encounter - Rosa Baum LPN - 05/10/2021 3:54 PM EDT Phone call placed patient advised (see prior provider encounter) Patient verbalized understanding, agreed with plan of care. Rosa Baum LPN * Telephone Encounter - Rosa Baum LPN - 05/10/2021 3:51 PM EDT ----- Message from Erlinda Zelaya APRN.DIRECTOR OF INDIVIDUAL GIVING sent at 05/10/2021 1:35 PM EDT ----- Please advise patient his US was normal. Follow instructions given by provider at visit, f/u with PCP if symptoms persist or worsen. Erlinda Zelaya APRN.DIRECTOR OF INDIVIDUAL GIVING documented in this encounterLicking [facility] Hospital03-23-2022 Miscellaneous Notes* Telephone Encounter - Sri Robbins PA-C - 05/09/2021 4:57 PM EDT I called and spoke with patient regarding negative US and femur xray results. Recommended aleve otcas well as tylenol. Rest, ice. Follow up with Dr Caceres. Patient agreeable with this plan. documented in this encounterLicking [facility] Hospital03-23-2022 History of Present illness Narrative* LEXIE Renner) - 05/09/2021 4:00 PM EDT Radiology Service Progress Note PATIENT NAME: Homer Dumas DATE OF SERVICE: May 09, 2021 TIME: 3:59 PM PATIENT IDENTITY VERIFICATION COMPLETED USING TWO (2) IDENTIFIERS: Name and Date of confirmedby patient verbally. FALL SCREENING: Has the patient had 2 falls in the last year or 1 fall with injury or currently using an Ambulatory Assistive Device (Walker, Cane, Wheelchair, Crutches, etc.)? No PATIENT GENDER DATA: Male PATIENT RELEVANT IMPLANT DATA REVIEWED: Not Applicable RADIOLOGY DEPARTMENT: General X-ray: Exam(s) Completed: Lower Extremity X- Ray(s): Femur, Right PERIPHERAL IV DATA: Not applicable SIGNED BY: RT Zurdo(Lawrence) May 09, 2021 3:59 PM documented in this encounterLicking [facility] Hospital03-23-2022 History of Present illness Narrative* Sri Robbins PA-C - 05/09/2021 1:52 PM EDT This note was created using Karma Platformriter. Subjective Homer Dumas is a 45 year old male. HPI [...] Current Outpatient Medications Medication Sig Dispense Refill Jkladchtddspcmr-Usxkeavlp-OO (BROMFED DM) 2-30-10 mg/5 mL syrup Take 5 mL by mouth four times dailyas needed. (Patient not taking: Reported on 02/26/2021 ) 118 mL 0 albuterol HFA (PROAIR HFA) 90 mcg/actuation inhaler Inhale 2 Puffs as instructed every 4 hours as needed. (Patient not taking: Reported on 02/26/2021 ) 1 Inhaler 0 benzonatate (TESSALON PERLE) 100 mg capsule Take 1-2 capsules tid prn (Patient not taking: Reportedon 01/28/2019 ) 30 capsule 0 No current [...] ordered. Patient will have these completed at [facility]. Patient at risk for tendon rupture due to being on levaquin recently for his foot wound. No obvious weakness on exam. Will rule out dvt as well. Will call on results. - US LEG VEIN DVT UNL VAS LAB - XR FEMUR GENERAL 2V AP/LAT RIGHT Sri Robbins PA-C documented in this encounterFirelands [facility] Author Gus [facility] Note Date/Time May 13, 2024 7:1 8am [facility] Medical Records Department [address] [place] [address] Pre-Anesthesia Evaluation 05/13/24 0713 MR#: [id number] Acct: [id number] Name: HOMER DUMAS Rep #:[id number] : 1975 48 From: Gus Aj MD PCP: Dr. Milla Horner MD Status:REG [facility] Y Race: C Location: [place] [address] ASA Classification* ASA Classification ASA Classification: 3 Assessment & Plan Anesthesia* Anesthesia Assessment Anesthesia Assessment: Discussed sedation and/or anesthesia options, risks, benefits, and alternatives with patient/parents/legal guardian/POA. Questions invited. The patient/parents/legal guardian/POA seems to understand and agrees to proceedwith anesthesia plan. Reviewed the physical assessment, medical history, allergy history and patient home medications list prior to surgery/procedure/anesthetic and documented any changes. Performed airway and anesthesia risk assessments. Anesthesia Type Anesthesia Type: MAC History Source History Obtained from:: Patient and Chart Anesthesia Focused Assessment* Temperature: 97.8 F Pulse Rate: 94 Blood Pressure: 119/75 Respiratory Rate: 20 Pulse Ox: 98 Oxygen Delivery Method: Room Air Airway Assessment Mouth opens: >3 cm Mallampati Score: II Teeth Condition: Intact Neck Range of motion (ROM): Full ROM Focused Labs Anesthesia Preop lab: CBC WBC 11.4 K/mm3 (4.4-11.0) H 09/16/23 12: 4 RBC 5.75 M/mm3 (4.6-6.2) 09/16/23 12:09/16/23 Hgb 16.0 g/dL (13.0-16.5) 09/16/23 12:09/16/23 Hct 48.0 % (40-54) 09/16/23 12:09/16/23 Plt Count 198 K/mm3 (150-450) 09/16/23 12:09/16/23 CHEMISTRY Potassium 3.9 mmol/L (3.5-5.1) 09/16/23 12:09/16/23 Sodium 138 mmol/L (136-145) 09/16/23 12:09/16/23 Magnesium 1.8 mg/dL (1.6-2.6) 02/24/23 13:15 02/24/23 Phosphorus 3.1 mg/dL (2.5-4.9) 04/28/21 07:30 04/28/21 BUN 14 mg/dL (7-18) 09/16/23 12:09/16/23 Creatinine 0.70 mg/dL (0.70-1.30) 09/16/23 12:09/16/23 Glucose 104 mg/dL (74-106) 09/16/23 12:09/16/23 POC Glucose 97 mg/dL (74-106) 05/13/24 06:44 05/13/24 TSH 0.98 uIU/mL (0.358-3.74) 05/15/23 12:28 COAG PT 14.9 SECONDS (11.7-14.9) 07/24/19 21:38 Pre-Assessment Diagnosis/Proposed Procedure Planned Operative Procedure(s): COLONOSCOPY-OA Anesthesia History Anesthesia History - product mgr: Anesthesia History - product mgr Hx Hospitalization No 05/10/24 09:56 Any Problems With Anesthesia No 05/10/24 09:56 Cholinesterase deficiency No 05/10/24 09:56 You/Your Family Experience No 05/10/24 09:56 fever (hyperthermia) with Relationship Recent Exposure to Contagious No 05/13/24 06:40 Disease Does patient have nerve No 05/10/24 09:56 stimulator Patient instructed to have device shut off --Does patient have Pacemaker No 05/13/24 06:40 or ICD? When Was Last Pacemaker Check QUESTION #4 FULL TEXT: You/Your Family Experience fever (hyperthermia) with Anesthesia Last Oral Intake Last Oral intake: Last Oral Intake NPO since 05:00 05/13/24 06:40 Meds taken in AM with sips of No 05/13/24 06:40 water? Meds patient instructed to take am of surgery Any additional information?: Yes NPO since: 05:00 (Patient finished prep at 5 AM.) PONV PONV - product mgr: PONV - product mgr Female No 05/10/24 09:56 HX of Motion Sickness No 05/10/24 09:56 HX of N/V After Surgery No 05/10/24 09:56 Non-Smoker Yes 05/10/24 09:56 Duration of Surgery greater No 05/10/24 09:56 than 60 minutes Number of Risk Factors 1 05/10/24 09:56 PONV Score Low Risk 05/10/24 09:56 Height & Weight Height & Weight: Anesthesia: Height & Weight Height 6 ft 3 in 05/13/24 06:40 Weight: 150.6 kg 05/13/24 06:40 Body Mass Index (BMI) 41.5 05/13/24 06:40 Respiratory Assessment Respiratory Assessment - product mgr: Respiratory Tract Infection Hx - product mgr Hx Respiratory Tract Infection No 05/10/24 09:56 STOP Sleep Apnea STOP Sleep Apnea - product mgr: STOP Sleep Apnea - product mgr Hx Hypertension No 05/10/24 09:56 Hx Sleep Apnea No 05/10/24 09:56 CPAP No 05/10/24 09:56 BIPAP No 05/10/24 09:56 Do you snore loudly (louder No 05/10/24 09:56 than talking or can be heard Do you often feel tired/ No 05/10/24 09:56 fatigued/ sleepy during daytime? Has anyone observed you stop No 05/10/24 09:56 breathing during sleep? STOP Results Negative 05/10/24 09:56 QUESTION #5 FULL TEXT : Do you snore loudly (louder than talking or can be heard through closed doors)? Tobacco Use History Tobacco Use History - product mgr: Tobacco Use History - product mgr Tobacco Use Smoking Status Former smoker 05/10/24 09:56 Hx Tobacco Use No 05/10/24 09:56 Years Smoking Packs Smoked per Day Smoking Cessation Date was Yes - quit smoking within 15 05/10/24 09:56 within the last 15 years years Hx Smoking Cessation Date Hx Smoking Cessation Counseling Hematologic Medial History Hematologic Hx - product mgr: Hematologic Medical Hx - bell maker Hx of Blood Transfusion No 05/10/24 09:56 Hx of Transfusion in last 3 No 05/10/24 09:56 Months Date of Last Transfusion (if within last 3 months) Ever experience any problems No 05/10/24 09:56 with transfusion(s)? Specify any problems Hx of Preganancy in last 3 N/A 05/10/24 09:56 Months Nurse Filling Out Transfusion VCHRISTIN 05/10/24 09:56 & Questions: Date: 05/10/24 05/10/24 09:56 Time: 09:56 05/10/24 09:56 Patient unable to answer at this time (ie. confused, unrespo /Reproduction History /Reproductive History - product mgr: /Reproductive Hx- product mgr Hx Now No 05/10/24 09:56 Gestational Age (in weeks): EDC: Hx Hx Para Hx Section SAB No 05/10/24 09:56 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 Hyperglycemia Cellulitis of right lower extremity Former smoker COVID-19 Morbid obesity Home Medications ?Medication ?Instructions ?Recorded ?Last Taken ?Type alfuzosin 10 mg tablet,extended 10 mg PO DAILY 4 05/12/24 History release 24 hr 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 meter,continuous #1 ea 05/15/23 Unknown Rx (FreeStyle Zay 3 Ubly) 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 sensor (FreeStyle #4 ea 05/15/23 Unknown Rx Zay 3 Sensor device) alcohol swabs (Alcohol Prep Pads) 1 pad topical .PRN # 200 ea 01/14/24 Unknown Rx blood sugar diagnostic (Contour #100 ea 01/14/24 Unkno wn Rx Test Strips) metformin 500 mg tablet 500 mg PO QDAY #90 tabs 12/1905/12/24 Rx multivitamin 1 tab PO QDAY 03/25/2405/10 History semaglutide 2 mg/dose (8 mg/3 mL) 2 mg (0.75 mL) subcu t QWEEK #3 mL 04/12/24 05/01/24 Rx subcutaneous pen injector Allergy/AdvReac Type Severity Reaction Status Date / Time No Known Allergies Allergy Verified 05/13/24 06:38 Family History Father Colon cancer, Onset Age: 40 Diabetes Skin cancer Mother Hypertension Surgical History Hx of amputation of lesser toe History of tonsillectomy Hx of foot surgery History of ankle surgery Social History adopted: No household members: significant other current occupational status: 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 current occupational exposures/hazards: No pets and animals: Yes pets and animals: dog(s) history of recent travel: No sexually active: Yes Smoking Status: Former smoker quit date: 02/18/04 pack-years: 10 Tobacco: How many years used: 10 Smokeless tobacco user: other second hand exposure: No alcohol intake: current alcohol intake frequency: holidays/special occasions only substance use type: does not use well-balanced diet: daily or most days caffeine: Yes eating out: 1-3 times/week during the past year weight has: decreased > 10 lbs frequency: 1-2 times per week duration: 15-30 minutes/day ethan/methodist: Advent seatbelt use: always do you feel safe at home: Yes Review of Systems (Anesthesia) ROS Narrative System reviewed and no additional complaints, except as documented. 05/13/24717 <Electronically signed by Gus pickard MD> Date _ Gus Aj MD Cosigner Signature: Date CC: ~ Signed [facility] Work Phone: Consult note Author Stalin Wilhelm [facility] Note Date/Time May 13, 2024 8:2 9am [facility] Medical Records Department [address] [place] [address] Anesthesia Postop Eval I 05/13/24756 MR#: [id number] Acct: [id number] Name: HOMER DUMAS Rep #:[id number] : 1975 48 From: Stalin HOGAN PCP: Dr. Milla Horner MD Status:REG [facility] Y Race: C Location: [place] [address] Anesthesia: Postop Eval I Current Vital Signs Temperature: 97.1 F Pulse Rate: 86 Blood Pressure: 100/68 Respiratory Rate: 16 Pulse Ox: 95 Assessment Airway patent: Yes Spontaneous unlabored respirations: Yes nausea: No Vomiting: No Anesthesia Complication: No Fluid Hydration Crystalloid volume administer (ml): 30 Total IV fluid infused: 30 Progress Note Anesthesia document: Postop Eval 1 completed: Yes 05/13/24756 <Electronically signed by Stalin Wilhelm CRNA> Date _ Stalin Reisignpankaj Signature: Date CC: ~ Signed [facility] Work Phone: Discharge summary [facility] February 28, 2023 2:50pm Note Date/Time February 28, 2023 2 :50pm [facility] Medical Records Department [address] [place] [address] Discharge Summary 02/28/23 1447 MR#: [id number] Acct: [id number] Name: HOMER DUMAS Rep #:[id number] : 1975 47 From: Levi Barksdale PCP: Dr. Sun Brar MD Status:A DM IN Location: [place] [id number] Providers Date of Admission: 02/25/23 Date of Discharge: 02/28/23 Primary Care Physician: Dr. Sun Brar MD Consultations 02/24/23 12:32 Consult: Onc/Wound/licensed psychologist manager Routine Comment: Reason for Consult:: 2nd toe dressing 02/24/23 17:20 Consult: Hospitalist Routine Consulting Provider: [facility] Reason for Consult: Hyperglycemia EMERGENT Consult: No MD Notified: Yes Date Notified: 02/24/23 Time Notified: 17:20 Method of Notification: Verbal 02/24/23 18:17 Consult: Infectious Disease Routine Consulting Provider: Maksim Albright Reason for Consult: osteomyelitis left 2nd toe EMERGENT Consult: No Notified: Yes Date Notified: 02/25/23 Time Notified: 06:20 Method of Notification: Answering Service Reason For Visit: LEFT SECOND TOE OSTEOMYELITIS Diagnosis Discharge Diagnosis (1) Acute osteomyelitis of toe of left foot: Status: Acute Code(s): M86.172 - Other acute osteomyelitis, left ankle and foot (2) Type 2 diabetes mellitus with diabetic polyneuropathy: Status: Acute Code(s): E11.42 - Type 2 diabetes mellitus with diabetic polyneuropathy Qualifiers: Diabetes mellitus computer terminal operator insulin use: unspecified intermediate insulin use status Qualified Code(s): E11.42 - Type 2 diabetes mellitus with diabetic polyneuropathy (3) Non-pressure chronic ulcer of other part of left foot with fat layer exposed: Status: Chronic Code(s): L97.522 - Non-pressure chronic ulcer of other part of left foot with fat layer exposed Plan The patient is a 47 y/o M is being admitted for left third toe pain for 2 to 3 days with radiation up to tibial region. History of surgery on the foot by Dr. Benites in the past. Denies fever. Denies new trauma. Patient also has chronic ankle pain and swelling because history of ankle surgery in the past. #1. Left Second toe Acutely Infected Diabetic Wound with Suspected Acute Osteomyelitis: Directly admitted per podiatry. Preliminary wound culture shows beta Streptococcus 1+. MRI foot shows osteomyelitis of second distal phalanx. Marrow edema of the distal phalanx of second toe. CRP mildly elevated although ESR normal. Currently on empiric vancomycin and Zosyn. Patient had a course ofCipro and Doxy few weeks ago. ID was consulted. Patient had partial left second toe amputation on 02/25/2023. Will wait for tissue/operative culture. 02/26: Tissue/wound culture from 02/26 shows beta Streptococcus, PEDIATRIC SURGEON, GNR possible Pseudomonas species. Will wait for the final culture report. 02/28: Final tissue culture shows Pseudomonas aeruginosa, strep group B, Staph epidermidis. The patient is discharged on Augmentin and Levaquin, prescription given by ID. Pain medication prescription given by trumpet player. #2. Diabetes mellitus type II, poorly controlled: A1c 8.8%. Last hemoglobin A1c 04/27/2021 6.4%. 02/26 glucose is high between 250-325. Patient is started on Humalog insulin andLantus insulin. Insulin dose uptitrated. Monitor Accu-Cheks and needs further adjustment. 02/25: Preliminary tissue culture shows Streptococcus group B, Staph epidermidis, GNR possible Pseudomonas. Will wait for full culture and then determine antibiotic. 02/28: Glucose is better controlled but is still high. Patient is discharged on Lantus insulin 22 units twice daily with hold if glucose less than 130 mg/dl. Prescription also given for Humalog insulin along with a sliding scale insulin. Follow with PCP in 2 weeks for better control of glucose. Prescription given for glucometer, insulin needle and supplies. #3. Morbid Obesity: Weight loss and lifestyle changes encouraged, nutrition consulted. BMI 39.8 kg/m? #4. DVT prophylaxis: SCDs, DVT prophylaxis. Discharge medication reconciliation done. Discharge follow-up instructions completed. Discharge process discussed with the patient and all questions wereanswered to patient's satisfaction. Follow with PCP in 1 to 2 weeks Total time spent, exact 35 minutes on discharge meds reconciliation, examination, coordination of care with nurses and ancillary staff, review of imaging and blood test and discussion with the patient on follow-up instructions. Microbiology Past 72 Hours 02/25/23 Unknown Tissue - 2nd Toe Gram Stain - Final 02/25/23 Unknown Tissue - 2nd Toe Wound Culture - Final Pseudomonas aeruginosa 02/25/23 Unknown Tissue - 2nd Toe Anaerobic Culture - Preliminary 02/25/23 Unknown Bone - 2nd Toe Gram Stain - Final 02/25/23 Unknown Bone - 2nd Toe Wound Culture - Final Streptococcus agalactiae (B) Staphylococcus epidermidis Pseudomonas aeruginosa 02/25/23 Unknown Bone - 2nd Toe Anaerobic Culture - Preliminary 02/24/23 09:30 Wound - Toe Gram Stain - Final 02/24/23 09:30 Wound - Toe Wound Culture - Final Streptococcus agalactiae (B) 02/24/23 09:30 Wound - Toe Anaerobic Culture - Final No anaerobic bacteria isolated. Laboratory Results 02/27/23 16:20: POC Glucose 216 H 02/27/23 16:31: Vancomycin Trough 21.1 H 02/27/23 22:07: POC Glucose 255 H 02/28/23 04:20: Random Vancomycin 8.0 02/28/23 08:27: POC Glucose 176 H 02/28/23 11:28: POC Glucose 246 H Medications at Discharge Home Medications alfuzosin 10 mg tablet,extended release 24 hr 10 mg PO DAILY 02/24/23 oxycodone-acetaminophen 5 mg-325 mg tablet (Percocet) 1 tab PO Q6H PRN pain 3 days #12 tabs 02/27/23 amoxicillin 875 mg-potassium clavulanate 125 mg tablet 1 tab PO BID #10 tabs 02/28/23 insulin glargine 100 unit/mL (3 mL) subcutaneous pen (Lantus Solostar U-100 Insulin) 22 unit (0.22 mL) subcut BID #15 mL 02/28/23 insulin lispro 100 unit/mL subcutaneous pen (Humalog KwikPen (U-100) Insulin) 17unit (0.17 mL) subcut TIDAC #15 mL 02/28/23 insulin lispro 100 unit/mL subcutaneous pen (Humalog KwikPen (U-100) Insulin) See Protocol subcut ACHS #0 mL 02/28/23 insulin syr/ndl U100 half jah 0.3mL 31 gauge x 15/64 #100 ea 02/28/23 levofloxacin 750 mg tablet 750 mg PO DAILY #38 tabs 02/28/23 Physical Exam Narrative Seen and examined. Patient admitted with left 2nd toe chronic ulcer, chronic osteomyelitis. No acute issues. Final culture came today. Patient is diabetic with high A1c. Physical exam General: Alert, Oriented x3, Cooperative. Morbid obesity BMI 39.8 kg/m? HEENT: Atraumatic, PERRLA, EOMI, Normocephalic Oral: No Gingival or Mucosal Lesions/ Ulcerations Neck: Supple, No JVD, Negative Carotid Bruits Lungs: Air entry diminished in bilateral lung bases. No crepitation/rhonchi Cardiovascular: Regular rate, Regular Rhythm, Normal S1, Normal S2, No murmurs Abdomen: Bowel Sounds Present, Soft, Non Tender, Non-Distended : No renal angle tenderness. No suprapubic tenderness. Extremities: No edema, Capillary Refill Less than 3 Seconds Skin: Left 2nd toe, tip has ulcer. Nonhealing. Musculoskeletal: No Tenderness to Palpation of Joints or Extremities Neurological: Cranial nerves II-XII grossly intact, DTR 2+/4. No acute focal neurological deficit. Psych/Mental Status: Normal Affect, Appropriate. Weight / BMI Weight Weight: 318 lb 6.406 oz Body Mass Index (BMI) 39.8 ABG / Lab / Microbiology Data 02/27/23 07:15 02/27/23 07:15 Laboratory: Laboratory Results - last 24 hr 02/27/23 16:20: POC Glucose 216 H 02/27/23 16:31: Vancomycin Trough 21.1 H 02/27/23 22:07: POC Glucose 255 H 02/28/23 04:20: Random Vancomycin 8.0 02/28/23 08:27: POC Glucose 176 H 02/28/23 11:28: POC Glucose 246 H Microbiology: Microbiology 02/25/23 Unknown Tissue - 2nd Toe Gram Stain - Final 02/25/23 Unknown Tissue - 2nd Toe Wound Culture - Final Pseudomonas aeruginosa 02/25/23 Unknown Tissue - 2nd Toe Anaerobic Culture - Preliminary 02/25/23 Unknown Bone - 2nd Toe Gram Stain - Final 02/25/23 Unknown Bone - 2nd Toe Wound Culture - Final Streptococcus agalactiae (B) Staphylococcus epidermidis Pseudomonas aeruginosa 02/25/23 Unknown Bone - 2nd Toe Anaerobic Culture - Preliminary 02/24/23 09:30 Wound - Toe Gram Stain - Final 02/24/23 09:30 Wound - Toe Wound Culture - Final Streptococcus agalactiae (B) 02/24/23 09:30 Wound - Toe Anaerobic Culture - Final No anaerobic bacteria isolated. D/C Instructions Discharge Diet: Low fat / Low cholesterol, 1800 Calorie Control Diet and 2000 mgSodium Diet Weight Bearing Status: Weight bearing as tolerated Keep extremity elevated above heart level: Left Leg (Please elevate left lower extremity at all times rest for postoperative edema control) Call your doctor if your incision/area has: Foul Smelling Discharge Call your doctor if you observe: Fever of 101 or Higher, Coldness, Increased Pain, Numbness or Tingling, Change in Color, Inability to urinate, Inability to have a bowel movement, Shortness of breath, Dizziness, Fainting spells, Swellingin the ankles, Chest pain, Prolonged hiccupping, Increased palpitations (irregular heartbeat) and Calf discomfort Cleanse incision/area with: Do not get Incision Wet and Keep Dressing Clean & Dry (Please utilize cast bag when showering to keep dressings clean, dry, and intact to the left foot) Please Follow Up With: Eilu Benites DPM When: IN 2 WEEKS Meaningful Use Info Meaningful Use Diagnoses (Choose all that apply): None applicable Discharge Plan Admission Admit Date/Time: 02/25/23 09:21 Primary Reason for Your Visit: Left second toe osteomyelitis. Attending Provider: Eliu Benites Primary Care Provider: Sun Brar Consulting Providers: Milla Horner; Cas Sams; Sun Brar; Merle Cunningham; Layne Aguillon NP; Grazyna Esquivel; Jah Diaz NP; Howie Conde; Irlanda Watson; Irlanda Monroe; Maksim Albright; Levi Carter Discharge Orders/Prescriptions Prescriptions: New oxycodone-acetaminophen [Percocet] 5-325 mg tablet 1 tab PO Q6H PRN (Reason: pain) 3 Days Qty: 12 0RF amoxicillin-pot clavulanate 875-125 mg tablet 1 tab PO BID Qty: 10 0RF levofloxacin 750 mg tablet 750 mg PO DAILY Qty: 38 0RF insulin lispro [Humalog KwikPen Insulin] 100 unit/mL Insulin Pen See Protocol subcut ACHS Qty: 0 0RF Protocol: 3. Sliding Scale Insulin Med Dosing Condition: 150-189 mg/dl = 1 unit Condition: 190-229 mg/dl = 2 units Condition: 230-269 mg/dl = 3 units Condition: 270-309 mg/dl = 4 units Condition: 310-349 mg/dl = 5 units Condition: 350-399 mg/dl = 6 units Condition: 400-449 mg/dl = 7 units Condition: Greater than 449 call physician Protocol Text: - Use for Total Daily Dose of Insulin 37-55 units - Obsese, infected, or steroid patients MEDIUM DOSING ALGORITHIM insulin lispro [Humalog KwikPen Insulin] 100 unit/mL Insulin Pen 17 unit subcut TIDAC Qty: 15 3RF Rx Instructions: Hold if glucose less than 130 mg/dl (DME) insulin syr/ndl U100 half jah 0.3 mL 31 gauge x 15/64 syringe See Rx Instructions .Route Qty: 100 0RF Rx Instructions: As directed insulin glargine [Lantus Solostar U-100 Insulin] 100 unit/mL (3 mL) insulin pen 22 unit subcut BID Qty: 15 4RF Rx Instructions: Hold if glucose less than 130 mg/dl Continued alfuzosin 10 mg tablet extended release 24 hr 10 mg PO DAILY Other Ambulatory Orders: Glucometer (Routine) Timeframe: 1 Day Location: Determined by Patient Ordered By: Dr. Levi Carter Referrals / Follow Up: Sun Brar MD [Primary Care Provider] - Within 2 Weeks Eliu Benites DPM [Med Staff - Active Staff] - Within 1 Week Disposition Disposition (needs filled in before D/C Order can be placed): Home, Self Care Charges/Coding Visit Charges Inpatient E&M: 73008 Disch Hosp >30min 02/28/23 1450 <Electronically signed by Levi Carter MD> Cosigner Signature (if applicable): CC: Dr. Sun Brar MD; Dr. Levi Carter MD~ Signed [facility] Work Phone: Discharge summary Author Ismael Ling [facility] Note Date/Time July 07, 2024 1:02p m [facility] Medical Records Department [address] [place] [address] Emergency Department Summary 07/07/24 MR#: [id number] Acct: [id number] Name: HOMER DUMAS Rep #:[id number] : 1975 48 From: Ismael Ling MD PCP: Dr. Milla Horner MD Status:ADM NAV Location: MS3 PS076-3 HPI History of Present Illness Chief Complaint: Cellulitis Narrative Narrative: 48-year-old male presents with his parents with feelings of shakiness today. Herelays history he has type 2 diabetes, and was seen in the emergency department last week for cellulitis of his left lower extremity. He had also sprained his right lower extremity. He is currently taking cephalexin and still has a few days left. While his cellulitis may have improved, he and his mother report that he had elevated temperature at 99 degrees, and he had to turn his car around because he felt very shaky. He denies fever outright but may feel chilled. No nausea or vomiting. No exacerbating or alleviating factors. 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 Hyperglycemia Cellulitis of right lower extremity Former smoker COVID-19 Morbid obesity Home Medications ?Medication ?Instructions ?Recorded ?Last Taken ?Type alfuzosin 10 mg tablet,extended 10 mg PO DAILY 4 05/12/24 History release 24 hr 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 sensor (FreeStyle #4 ea 05/15/23 Unknown Rx Zay 3 Sensor device) 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,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,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 ea 05/15/23 Unknown Rx (FreeStyle Zay 3 Ubly) alcohol swabs (Alcohol Prep Pads) 1 pad topical .PRN # 200 ea 01/14/24 Unknown Rx blood sugar diagnostic (Contour #100 ea 01/14/24 Unkno wn Rx Test Strips) multivitamin 1 tab PO QDAY 03/25/2405/10 History semaglutide 2 mg/dose (8 mg/3 mL) 2 mg (0.75 mL) subcu t QWEEK #3 mL 06/23/24 Unknown Rx subcutaneous pen injector cephalexin 500 mg capsule 500 mg PO Q6 #40 CAPSULES Unknown Rx metformin 500 mg tablet 500 mg PO DAILY #90 TABLETS 07/06/24 Unknown Rx Allergy/AdvReac Type Severity Reaction Status Date / Time No Known Allergies Allergy Verified 07/07/24 08:59 Family History Father Colon cancer, Onset Age: 40 Diabetes Skin cancer Mother Hypertension Surgical History Hx of amputation of lesser toe History of tonsillectomy Hx of foot surgery History of ankle surgery Social History adopted: No household members: significant other current occupational status: 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 current occupational exposures/hazards: No pets and animals: Yes pets and animals: dog(s) history of recent travel: No sexually active: Yes Smoking Status: Former smoker quit date: 02/18/04 pack-years: 10 Tobacco: How many years used: 10 Smokeless tobacco user: other second hand exposure: No alcohol intake: current alcohol intake frequency: holidays/special occasions only substance use type: does not use well-balanced diet: daily or most days caffeine: Yes eating out: 1-3 times/week during the past year weight has: decreased > 10 lbs frequency: 1-2 times per week duration: 15-30 minutes/day ethan/methodist: Advent seatbelt use: always do you feel safe at home: Yes ROS ROS ED ROS Narrative Review of systems positive for slightly elevated temperature of 99 ?F, feelings of shakiness. Being treated for left lower extremity cellulitis/redness, improved in color according to patient and family. No nausea or vomiting. No chest pain. No cough. No difficulty breathing. EXAM Physical Exam Narrative Exam Narrative: Afebrile. Vital signs noted. Nontoxic-appearing. Positive tachycardia, regular. Lungs clear to auscultation bilaterally. Abdomen soft and nontender without guarding or rebound. Positive bowel sounds. Neurological examination nonfocal, nonlateralizing. Inspection of the left lower extremity does show mild erythema on the anterior tibial surface of the left lower extremity, not completely circumferential, no lymphangitic streaking, no palpable cord. No crepitance. Const Vital Signs: 07/07/24 08:59 07/07/24 09:01 07/07/24 09:09 Temperature 98.7 F 98.7 F Temperature Source Oral Oral Pulse Rate 141 H 141 H Respiratory Rate 19 H 19 H Blood Pressure 109/88 H 109/88 H Blood Pressure Mean 95 95 Pulse Ox 100 98 Oxygen Delivery Method Room Air Room Air Room Air 07/07/24 10:52 Temperature 98.2 F Temperature Source Oral Pulse Rate 118 H Respiratory Rate 26 H Blood Pressure 96/56 L Blood Pressure Mean 69 Pulse Ox 95 Oxygen Delivery Method Room Air MDM MDM MDM Narrative Medical decision making narrative: The differential diagnosis does include but not limited to sepsis from cellulitis/skin infection versus dehydration versus anxiety versus viral syndrome. I reviewed the patient's prior records. Sepsis workup was pursued. Initially, he had a heart rate of 141 bpm and a soft blood pressure of 109/88. I reviewed his laboratory work and he has slight leukocytosis 12.1 with hemoglobin 16.3, hematocrit 47.7, platelet count normal at 205. Coagulation studies are negative with an INR of 1.1 with an APTT of 28.5, CMP shows glucose elevated at 132 with a normal anion gap of 12, BUN normal at 15 and creatinine 0.70, no dehydration, normal sodium and potassium. LFTs are grossly unremarkable. Lactic acid is elevated at 2.6. Chest x-ray interpreted by myself independently shows no evidence of an acute process, no pneumonia. I reviewed the radiology report which confirms my independent interpretation. Upon repeat examination, patient states now that heis not chilled or shaky but feels warm. He is meeting SIRS criteria and I do feel that as he has been on cephalexin, that he failed outpatient treatment for the cellulitis of his left lower extremity. He had an MAP of 66 so he will be given IV fluids and second IV started. He was started on Unasyn. I will discuss the patient with the hospitalist for admission. Disposition is admit instable condition. I discussed patient with Dr. Del Rio. Patient does have a history of osteomyelitis. He requested that ESR and CRP be obtained as he may require imaging. CRP is elevated at 26. In review of prior labs, it has been elevated in the past. Additionally ESR is elevated in the 20s. I did obtain x-rays of the tibia and fibula and interpreted them independently. On my independent interpretation there is no evidence of an acute fracture, but I reviewed the radiology report and there is comment on lesion in the mid fibula. I discussed the patient again with Dr. Del Rio. Patient will be admitted to the medical surgical floor in stable condition. History & Record Review Discussion w/independent historian: Patient and Family Additional record(s) reviewed:: Prior ED visit Lab Data Attestation: I reviewed the patient's lab results. Labs: Laboratory Results - last 24 hr 07/07/24 07/07/24 09:30 10:43 WBC 12.1 H RBC 5.63 Hgb 16.3 Hct 47.7 MCV 84.7 MCH 29.0 MCHC 34.2 RDW Std Deviation 41.7 RDW Coeff of Gabriella 13.4 Plt Count 205 MPV 9.3 Immature Gran % (Auto) 0.600 Neut % (Auto) 87.4 H Lymph % (Auto) 6.7 L [place] % (Auto) 4.5 Eos % (Auto) 0.6 Baso % (Auto) 0.2 Absolute Neuts (auto) 10.6 H Absolute Lymphs (auto) 0.81 L Nucleated RBC % 0 ESR 22 H PT 14.1 INR 1.1 APTT 28.5 Sodium 140 Potassium 4.7 Chloride 103 Carbon Dioxide 25.3 Anion Gap 12 BUN 15 Creatinine 0.70 Estim Creat Clear Calc 202.67 Est GFR (MDRD) Non-Af 113 BUN/Creatinine Ratio 21.9 H Glucose 132 H Lactic Acid 2.6 H* Calcium 9.4 Total Bilirubin 0.85 AST 20 ALT 25 Alkaline Phosphatase 99 C-React Prot Ext Range 26.60 H Total Protein 7.3 Albumin 4.3 Globulin 3.1 Albumin/Globulin Ratio 1.4 Urine Color Yellow Urine Clarity Clear Urine pH 5.0 Ur Specific [place] 1.020 Urine Protein 15 H Urine Glucose (UA) Normal Urine Ketones Negative Urine Occult Blood Negative Urine Nitrite Negative Urine Bilirubin Negative Urine Urobilinogen Normal Ur Leukocyte Esterase Negative Urine RBC 0 SEEN Urine WBC 0 SEEN Ur Squamous Epith Cells 0 SEEN Urine Bacteria 0 SEEN Urine Mucus 0 SEEN Radiography Chest X-Ray - ED: 1 View, Read by ED Physician, Read by Radiologist and No Infiltrates Diagnostic Testing: Clinical Impression(s) from Imaging Studies Chest X-Ray 07/07/24 09:36 IMPRESSION: No acute cardiopulmonary process. Reading Location: [facility] Management Discussion w/another healthcare provider: Hospitalist Discharge Plan Dx/Rx/DC Orders Clinical Impression: Leukocytosis, Left leg cellulitis, Lactic acidosis, Failure of outpatient treatment Disposition Disposition: [facility] What to do if you have Problems For any increased pain, shortness of breath, bleeding, nausea or vomiting, chestpain, or any unexpected problems, contact your Primary Care Provider. Call [facility] ([phone]) or report to the closest Emergency Room. Call 911 if necessary. 07/07/24 1302 <Electronically signed by Ismael Ling MD> Cosigner Signature (if applicable): CC: Dr. Milla Horner MD ~ Signed [facility] Work Phone: Evaluation + Plan note No data available for this section [facility] Evaluation note* Diagnosis Right leg pain- Primary Pain in limb [facility]* Diagnosis Right leg pain Pain in limb documented in this encounter [facility] note* Diagnosis Onset Date Resolution Status Blister of foot, left, infected acute Cellulitis of right lower extremity acute Type 2 diabetes mellitus with diabetic polyneuropathy acute Non-pressure chronic ulcer o f other part of left foot with fat layer exposed [facility] Work Phone: Evaluation note* Diagnosis Hamstring strain, right, subsequent encounter- Primary documented in this encounter [facility] note* Diagnosis Onset Date Resolution Status Blister of foot, left, infected acute Cellulitis of right lower extremity acute Type 2 diabetes mellitus with diabetic polyneuropathy acute Non-pressure chronic ulcer o f other part of left foot with fat layer exposed chronic Type 2 diabetes mellitus with diabetic polyneuropathy acute Non-pressure chronic ulcer o f other part of left foot with fat layer exposed [facility] Work Phone: Evaluation note* Diagnosis Hamstring strain, right, subsequent encounter- [facility] Hamstring strain, right, subsequent encounter- Primary [facility] in [facility]* Diagnosis Dietary counseling- Primary Dietary surveillance and counseling Morbid obesity (HCC) Morbid obesity Prediabetes Other abnormal glucose BMI 50.0-59.9, adult (HCC) Body Mass Index 50.0-59.9, adult documented in this encounter [facility]* Diagnosis Scrotal abscess Other inflammatory disorder of male genital organs documented in this encounter [facility] noteNo assessment [facility] Work Phone: Evaluation note* Diagnosis Acute non-recurrent pansinusitis- Primary Acute cough documented in this encounter [facility] note* Diagnosis Onset Date Resolution Status Abscess acute [facility] Work Phone: Evaluation note* Diagnosis Cellulitis of left foot- Primary Cellulitis and abscess of foot, except toes documented in this encounter [facility] note* Diagnosis Onset Date Resolution Status Acute osteomyelitis of toe of left foot acute Type 2 diabetes mellitus with diabetic polyneuropathy acute Non-pressure chronic ulcer o f other part of left foot with fat layer exposed chronic [facility] Work Phone: Evaluation note* Diagnosis Onset Date Resolution Status Acute osteomyelitis of toe of left foot acute Type 2 diabetes mellitus with diabetic polyneuropathy acute Non-pressure chronic ulcer o f other part of left foot with fat layer exposed chronic Morbid obesity acute Screening for colon cancer a cute Type 2 diabetes mellitus with diabetic polyneuropathy acute [facility] Work Phone: History and physical note Author Alessandro Andrea [facility] Note Date/Time May 13, 2024 7:2 5am [facility] Medical Records Department [address] [place] [address] History & Physical Exam 05/13/24 0724 MR#: [id number] Acct: [id number] Name: HOMER DUMAS Rep #:[id number] : 1975 48 From: Alessandro joseph MD PCP: Dr. Milla Horner MD Status:[facility] Location: [place] [address] HPI - General HPI Narrative HOMER DUMAS, is a 48 M who presents for screening colonoscopy. This is his first colonoscopy. He does have family history of colon cancer in his father jean young age. He reports no abdominal pain or blood in the stool. 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 Hyperglycemia Cellulitis of right lower extremity Former smoker COVID-19 Morbid obesity Home Medications ?Medication ?Instructions ?Recorded ?Last Taken ?Type alfuzosin 10 mg tablet,extended 10 mg PO DAILY 4 05/12/24 History release 24 hr 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 meter,continuous #1 ea 05/15/23 Unknown Rx (FreeStyle Zay 3 Ubly) 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 sensor (FreeStyle #4 ea 05/15/23 Unknown Rx Zay 3 Sensor device) alcohol swabs (Alcohol Prep Pads) 1 pad topical .PRN # 200 ea 01/14/24 Unknown Rx blood sugar diagnostic (Contour #100 ea 01/14/24 Unkno wn Rx Test Strips) metformin 500 mg tablet 500 mg PO QDAY #90 tabs 12/1905/12/24 Rx multivitamin 1 tab PO QDAY 03/25/2405/10 History semaglutide 2 mg/dose (8 mg/3 mL) 2 mg (0.75 mL) subcu t QWEEK #3 mL 04/12/24 05/01/24 Rx subcutaneous pen injector Allergy/AdvReac Type Severity Reaction Status Date / Time No Known Allergies Allergy Verified 05/13/24 06:38 Family History Father Colon cancer, Onset Age: 40 Diabetes Skin cancer Mother Hypertension Surgical History Hx of amputation of lesser toe History of tonsillectomy Hx of foot surgery History of ankle surgery Social History adopted: No household members: significant other current occupational status: 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 current occupational exposures/hazards: No pets and animals: Yes pets and animals: dog(s) history of recent travel: No sexually active: Yes Smoking Status: Former smoker quit date: 02/18/04 pack-years: 10 Tobacco: How many years used: 10 Smokeless tobacco user: other second hand exposure: No alcohol intake: current alcohol intake frequency: holidays/special occasions only substance use type: does not use well-balanced diet: daily or most days caffeine: Yes eating out: 1-3 times/week during the past year weight has: decreased > 10 lbs frequency: 1-2 times per week duration: 15-30 minutes/day ethan/methodist: Advent seatbelt use: always do you feel safe at home: Yes Past Medical/Surgical History Planned Operation Planned Operative Procedure(s): COLONOSCOPY-OA S.O.S: No Previous Hospitalizations/Surgeries HX Hospitalizations: No HX of Surgeries: TONSILLECTOMY LEG FRACTURE left foot surgery x2 Any Problems With Anesthesia: No You/Your Family Experience Fever (Hyperthermia) With Anes: No Cholinesterase deficiency: No Cardiovascular Hx Chest Pain within Last 2 months: No Hx of Irregular Heartbeat and/or Afib: No Hx Heart Attack: No Hx Congestive Heart Failure: No Hx Rheumatic Fever: No Hx Hypertension: No Hx Internal Defibrillator: No Hx Pacemaker: No Hx Cardiac Catheterization: No Hx Cardiac Surgery/Stents/Etc.: No Hx Stress Test: No Hx Pain in Legs when Walking/Leg Cramps: No Respiratory Chronic Cough: No HX of Shortness of Breath: No Hoarseness: No Hx Chronic Obstructive Pulmonary Disease (COPD): No Hx Asthma: No Hx Emphysema: No Hx Sleep Apnea: No CPAP: No BIPAP: No Hx Respiratory Tract Infection/Cold (presently): No Do You Snore Loudly (louder than talking or can be heard): No Do You Often Feel Tired/ Fatigued/ Sleepy Dring Daytime?: No Has Anyone Observed You Stop Breathing During Sleep?: No Result (for STOP score): Negative Hx Smoking: Yes (QUIT 15YRS AGO) Smoking Status: Former smoker Gastrointestinal Controlled With Meds: No Hx Gastrointestinal Disorders: No Hx Gastrointestinal Bleed: No Hx Ulcer: No Hx Hiatal Hernia: No Difficulty Chewing/Swallowing: No Special diet followed at home: No Hx Unplanned Weight Loss of 20#: No HX Unplanned Weight Gain of 20#: No Neurological Hx Seizures: No HX Syncope/Blackout Spells/Unconsciousness: No Hx Transient Ischemic Attacks (TIA): No Hx Multiple Sclerosis: No Hx Parkinson's Disease: No Hx Head/Neck Injury: No Hx Headaches: No Hx Back Injury/Pain: No Recent Onset of Speech Difficulty: No Restless Legs: No Does patient have nerve stimulator: No Blood Disorder Hx Leukemia: No Bleeding Tendencies: No Hx Deep Vein Thrombosis: No Hx High Cholesterol: No Blood Transmitted Disease: No Hx Hepatitis: No Hx Cirrhosis: No Hx Anemia: No Hx Blood Disorders: No Reproduction : No Genitourinary Hx Renal Disease: No Hx Dialysis: No Musculoskeletal Hx Arthritis: Yes (TOES) Hx Rheumatoid Arthritis: No Hx Gout: No Recent Onset of an Orthopedic Problem: No Endocrine Hx Diabetes: Yes Insulin: No Thyroid Disease: No Hx Steroid Therapy: No Psycho/Social Hx Substance Use: No Hx Alcohol Use: Yes (occasionally) Hx Anxiety: No Hx Depression: No Mental Illness: No Hx Dementia: No Miscellaneous Hx Cancer: No Recent Exposure to Contagious Disease: No Hx of C-Diff: No Any Loose Teeth: No Allergies No Known Allergies Allergy (Verified 05/13/24 06:38) Maternal: Family History Father Colon cancer, Onset Age: 40 Diabetes Skin cancer Mother Hypertension Hypertension Paternal: Family History Father Colon cancer, Onset Age: 40 Diabetes Skin cancer Mother Hypertension Cancer (Colon cancer.) and Diabetes Discharge Is Pt Admitted From a Halfway, or a Usp: No After D/C, Where Do you Plan to Go: Return Home Vital Signs Vital Signs Vital Signs: 05/13/24 06:40 05/13/24 06:40 05/13/24 07:18 Temperature 97.8 F 97.8 F Temperature Source Temporal Pulse Rate 94 94 Respiratory Rate 20 H 20 H Respiratory Pattern Normal Blood Pressure 119/75 119/75 Blood Pressure Mean 89 Blood Pressure Source Monitor Blood Pressure Position Semi-Fowlers Blood Pressure Location Right Arm Pulse Ox 98 98 Oxygen Delivery Method Room Air Room Air Weight Weight: 332 lb 0.258 oz Body Mass Index (BMI) 41.5 Physical Exam Const alert and oriented x3 HEENT normocephalic Eyes PERRL Resp normal respiratory effort and normal air movement Cardio regular rate and regular rhythm GI soft to palpation, non-tender and non-distended Extremity normal to inspection Assessment & Plan Assessment/Plan (1) Encounter for screening for malignant neoplasm of colon: PLAN: I explained endoscopy in detail to the patient. I explained the risks including but not limited to stroke or heart attack with anesthesia, perforationof the GI tract, bleeding, infection. I explained that any of these could necessitate further emergency surgery. The patient understands and all questions were answered sufficiently. The patient wishes to proceed with procedure. Given the patient's family history I do recommend that even if we do not find any polyps he repeat screening colonoscopy every 5 years Alessandro Andrea MD Pager: [facility] [address] [place] [address], [address] [place] [address] Office: Surgery Risks - Colonoscopy Risks Include but are not Limited To: Risks include but are not limited to: Bleeding, perforation requiring further surgery, inability to complete colonoscopy requiring barium enema. 05/13/24 0725 <Electronically signed by Alessandro Andrea MD> Cosigner Signature (if applicable): CC: Dr. Milla Horner MD; Dr. Alessandro Andrea MD~ Signed [facility] Work Phone: Reason for referral (narrative)* Diagnostic Procedure Only (Urgent) - Closed Specialty Diagnoses / Procedures Referred By Contac t Referred To Contact XR IMAGING Diagnoses Right leg pain Procedures XR FEMUR GENERAL 2V AP/LAT RIGHT RADIOLOGIC EXAMINATION FEMUR MINIMUM 2 VIEWS Sri Robbins PA-C [address] [place] [address] Xr Imaging Referral ID Status Reason Start Date Expiration Date V isits Requested Visits Authorized [id number] Closed Auto-Generate d Referral 05/09/2021 06/08/2022 1 1 * Outpatient Procedure (Urgent) - Closed Specialty Diagnoses / Procedures Referred By Contac t Referred To [facility] Diagnoses Right leg pain Procedures US LEG VEIN DVT UNL VAS LAB DUP-SCAN XTR VEINS UNILATERAL/LIMITED STUDY Sri Robbins PA-C [address] [place] [address] [facility] [address] [place] [address] Referral ID Status Reason Start Date Expiration Date V isits Requested Visits Authorized [id number] Closed Auto-Generate d Referral 05/09/2021 05/09/2022 1 1 [facility] for referral (narrative)* Diagnostic Procedure Only (Urgent) - Closed Specialty Diagnoses / Procedures Referred By Contac t Referred To Contact XR IMAGING Diagnoses Right leg pain Procedures XR FEMUR GENERAL 2V AP/LAT RIGHT RADIOLOGIC EXAMINATION FEMUR MINIMUM 2 VIEWS Sri Robbins PA-C [address] [place] [address] Xr Imaging Referral ID Status Reason Start Date Expiration Date V isits Requested Visits Authorized [id number] Closed Auto-Generate d Referral 05/09/2021 06/08/2022 1 1 [facility] for visit Narrative* Diagnostic Procedure Only (Urgent) - Closed Specialty Diagnoses / Procedures Referred By Contac t Referred To Contact XR IMAGING Diagnoses Right leg pain Procedures XR FEMUR GENERAL 2V AP/LAT RIGHT RADIOLOGIC EXAMINATION FEMUR MINIMUM 2 VIEWS Sri Robbins PA-C [address] [place] [address] Xr Imaging Referral ID Status Reason Start Date Expiration Date V isits Requested Visits Authorized [id number] Closed Auto-Generate d Referral 05/09/2021 06/08/2022 1 1 [facility] Summary Purpose Family History No Family History Records Found Relationship Condition Age at Onset Recorded Date/T julian father Malignant neoplasm of colon Unknown Diabetes mellitus Unknown Malignant neoplasm of skin Unknown mother Hypertension Unknown Relationship Condition Age at Onset Recorded Date/T julian father Malignant neoplasm of colon 40 Diabetes mellitus Unknown Malignant neoplasm of skin Unknown mother Hypertension Unknown Advance Directives No Advanced Directives Records Found Advance Directive Response Recorded Date/ Time Advance Directives No January 10:38am Living Will No April 27, 2021 3:12pm Power of Sausage Stringer No April 27 3:12pm Advance Directive Response Recorded Date/ Time Advance Directives No January 10:38am Living Will No May 30, 2021 12:23pm Power of Sausage Stringer No May 30 12:23pm Advance Directive Response Recorded Date/ Time Advance Directives No January 9:38am Living Will No February 24 12:05pm Power of Sausage Stringer No February 24, 024 12:05pm Advance Directive Response Recorded Date/ Time Advance Directives No January 10:38am Living Will No February 24 1:05pm Power of Sausage Stringer No February 24 024 1:05pm Advance Directive Response Recorded Date/ Time Advance Directives No January 9:38am Living Will No February 01 023 3:47pm Power of Sausage Stringer No February 01, 2023 3:47pm Advance Directive Response Recorded Date/ Time Living Will Yes May 10, 2024 9:56am Do you have a Healthcare Power of Sausage Stringer? Yes May 10, 2024 9:56am Name of Medical Power of Sausage Stringer ANDREW DUMAS May 10, 2024 9:56am Advance Directives No January 10:38am Advance Directive Response Recorded Date/ Time Do you have a Healthcare Power of Sausage Stringer? No July 01, 2024 6:06pm Living Will Yes May 10, 2024 9:56am Do you have a Healthcare Power of Sausage Stringer? Yes May 10, 2024 9:56am Name of Medical Power of Sausage Stringer ANDREW DUMAS May 10, 2024 9:56am Advance Directives No January 10:38am Advance Directive Response Recorded Date/ Time Do you have a Healthcare Power of Sausage Stringer? No July 01, 2024 6:06pm Do you have a Healthcare Power of Sausage Stringer? No July 07, 2024 8:59am Living Will Yes May 10, 2024 9:56am Do you have a Healthcare Power of Sausage Stringer? 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 Chief Complaint COVID POS L LE CELLULITIS L LE CELLULITIS L LE CELLULITIS L LE CELLULITIS wound wound left leg Reason for Visit Blister of foot, lef t, infected Cellulitis of right lower extremity Type 2 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 Chief Complaint COVID POS L LE CELLULITIS L LE CELLULITIS L LE CELLULITIS L LE CELLULITIS wound left leg wound Reason for Visit Blister of foot, lef t, infected Cellulitis of right lower extremity Type 2 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 Chief Complaint BOIL ON CHEST Reason for Visit Abscess Chief Complaint PAIN OTHER LEFT SECOND TOE OSTEOMYELITIS LEFT SECOND TOE OSTEOMYELITIS LEFT SECOND TOE OSTEOMYELITIS LEFT SECOND TOE OSTEOMYELITIS LEFT SECOND TOE OSTEOMYELITIS LEFT SECOND TOE OSTEOMYELITIS Reason for Visit Acute osteomyelitis of toe of left foot Type 2 diabetes mellitus with diabetic 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 Chief Complaint PAIN OTHER LEFT SECOND TOE OSTEOMYELITIS LEFT SECOND TOE OSTEOMYELITIS LEFT SECOND TOE OSTEOMYELITIS LEFT SECOND TOE OSTEOMYELITIS LEFT SECOND TOE OSTEOMYELITIS LEFT SECOND TOE OSTEOMYELITIS SEE ORDER DIABETIC FOLLOW UP Reason for Visit Acute osteomyelitis of toe of left foot Type 2 diabetes mellitus with diabetic 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 Morbid obesity Screening for colon cancer Type 2 diabetes mellitus with diabetic polyneuropathy Chief Complaint PAIN OTHER Chief Complaint Admit Date EST CARE-PREV GRAZYNA PT March 22 8:59am Amb Documentation March 25, 2024 1 1:34am Reason for Visit Admit Date Type 2 diabetes mellitus March 22 025 8:59am Immunization declined March 22, 2024 8:59am Encounter for screening for malignant ne oplasm of colon March 22, 2024 8:59am Establishing care with [facility] for March 22, 2024 8:59am Urinary frequency March 22, 2024 8 :59am Morbid obesity with BMI of 40.0-44.9, ad ult March 22, 2024 8:59am Encounter for screening for malignant ne oplasm of colon May 13, 2024 6:21am Chief Complaint Admit Date EST CARE-PREV GRAZYNA PT March 22 8:59am Amb Documentation March 25, 2024 1 1:34am 3 M FU June 23, 2024 10:51a m Ankle injury July 01, 2024 3:11p m Reason for Visit Admit Date Type 2 diabetes mellitus March 22 8:59am Immunization declined March 22, 2024 8:59am Encounter for screening for malignant ne oplasm of colon March 22, 2024 8:59am Establishing care with new doctor[facility] for March 22, 2024 8:59am Urinary frequency March 22, 2024 8 :59am Morbid obesity with BMI of 40.0-44.9, ad ult March 22, 2024 8:59am Encounter for screening for malignant ne oplasm of colon May 13, 2024 6:21am Type 2 diabetes mellitus June 23, 2024 1 0:51am Urinary frequency June 23, 2024 10:51a m Morbid obesity with BMI of 40.0-44.9, ad ult June 23, 2024 10:51am Chief Complaint Admit Date EST CARE-PREV GRAZYNA PT March 22 8:59am Amb Documentation March 25, 2024 1 1:34am 3 M FU June 23, 2024 10:51a m Ankle injury July 01, 2024 3:11p m CELLULITIS July 07, 2024 10:53 am Reason for Visit Admit Date Type 2 diabetes mellitus March 22, 8:59am Immunization declined March 22, 2024 8:59am Encounter for screening for malignant ne oplasm of colon March 22, 2024 8:59am Establishing care with new doctor[facility] for March 22, 2024 8:59am Urinary frequency March 22, 2024 8 :59am Morbid obesity with BMI of 40.0-44.9, ad ult March 22, 2024 8:59am Encounter for screening for malignant ne oplasm of colon May 13, 2024 6:21am Type 2 diabetes mellitus June 23, 2024 1 0:51am Urinary frequency June 23, 2024 10:51a m Morbid obesity with BMI of 40.0-44.9, ad ult June 23, 2024 10:51am Failure of outpatient treatment June 10:53am Lactic acidosis July 07, 2024 10:53 am Left leg cellulitis July 07, 2024 10:53 am Leukocytosis July 07, 2024 10:53 am Reason for Referral Specialty Diagnoses / Procedures Referred By Contac t Referred To Contact [facility] Diagnoses Hamstring strain, right, subsequent encounter Procedures CONSULT TO PHYSICAL THERAPY PHYSICAL THERAPY EVALUATION HIGH COMPLEX 45 MINS Kali Caceres V, DO [address] [place] [address] [facility] [address] [place] [address] Referral ID Status Reason Start Date Expiration Date Visits Requested Visits Authorized [id number] Authorized Auto-Generat ed Referral 02/17/2021 02/16/2022 30 30 Additional Source Comments (unrecognized sect ion and content) No Status Records FoundNo Status Records FoundNo Status Records FoundNo Status Records FoundNo Status Records Found INFORMATION SOURCE (unrecogn ized section and content) DATE CREATED AUTHOR 02/06/2020 [facility] DATE CREATED AUTHOR AUTHOR'S ORGANIZ ATION 02/16/2020 [facility] DATE CREATED AUTHOR AUTHOR'S ORGANIZ ATION 09/23/2022 [facility] DATE CREATED AUTHOR AUTHOR'S ORGANIZ ATION 02/03/2023 [facility] DATE CREATED AUTHOR AUTHOR'S ORGANIZ ATION 07/23/2024 [facility] Source Comments (unrecognize d section and content) In the event this informatio n is protected by the Federal Confidentiality of Alcohol and Drug Abuse Patient Records regulations: The Federal rules restrict any use of the information to criminally investigate or prosecute any alcohol or drug abuse patient.[facility] the event this information is protected by the Federal Confidentiality of Alcohol and Drug Abuse Patient Records regulations: The Federal rules restrict any use of the information to criminally investigate or prosecute any alcohol or drug abuse patient.[facility] the event this information is protected by the Federal Confidentiality of Alcohol and Drug Abuse Patient Records regulations: The Federal rules restrict any use of the information to criminally investigate or prosecute any alcohol or drug abuse patient.[facility] the event this information is protected by the Federal Confidentiality of Alcohol and Drug Abuse Patient Records regulations: The Federal rules restrict any use of the information to criminally investigate or prosecute any alcohol or drug abuse patient.[facility] the event this information is protected by the Federal Confidentiality of Alcohol and Drug Abuse Patient Records regulations: The Federal rules restrict any use of the information to criminally investigate or prosecute any alcohol or drug abuse patient.[facility] the event this information is protected by the Federal Confidentiality of Alcohol and Drug Abuse Patient Records regulations: The Federal rules restrict any use of the information to criminally investigate or prosecute any alcohol or drug abuse patient.[facility] the event this information is protected by the Federal Confidentiality of Alcohol and Drug Abuse Patient Records regulations: The Federal rules restrict any use of the information to criminally investigate or prosecute any alcohol or drug abuse patient.[facility] the event this information is protected by the Federal Confidentiality of Alcohol and Drug Abuse Patient Records regulations: The Federal rules restrict any use of the information to criminally investigate or prosecute any alcohol or drug abuse patient.[facility] the event this information is protected by the Federal Confidentiality of Alcohol and Drug Abuse Patient Records regulations: The Federal rules restrict any use of the information to criminally investigate or prosecute any alcohol or drug abuse patient.[facility] the event this information is protected by the Federal Confidentiality of Alcohol and Drug Abuse Patient Records regulations: The Federal rules restrict any use of the information to criminally investigate or prosecute any alcohol or drug abuse patient.[facility] the event this information is protected by the Federal Confidentiality of Alcohol and Drug Abuse Patient Records regulations: The Federal rules restrict any use of the information to criminally investigate or prosecute any alcohol or drug abuse patient.[facility] the event this information is protected by the Federal Confidentiality of Alcohol and Drug Abuse Patient Records regulations: The Federal rules restrict any use of the information to criminally investigate or prosecute any alcohol or drug abuse patient.[facility] the event this information is protected by the Federal Confidentiality of Alcohol and Drug Abuse Patient Records regulations: The Federal rules restrict any use of the information to criminally investigate or prosecute any alcohol or drug abuse patient.[facility] Reason for Visit (unrecogniz ed section and content) Reason Comments Physical Therapy Specialty Diagnoses / Procedures Referred By Contac t Referred To Contact [facility] Diagnoses Hamstring strain, right, subsequent encounter Procedures CONSULT TO PHYSICAL THERAPY PHYSICAL THERAPY EVALUATION HIGH COMPLEX 45 MINS Kali Caceres V, DO [address] [place] [address] [facility] [address] [place] [address] Referral ID Status Reason Start Date Expiration Date Visits Requested Visits Authorized [id number] Authorized Auto-Generat ed Referral 02/17/2021 02/16/2022 30 [...] Prediabetes Procedures CONSULT TO NUTRITION THERAPY OFFICE/OUTPATIENT [facility] MDM 60-74 MINUTES Rory Smith MD [address] [place] [address] Referral ID Status Reason Start Date Expiration Date V isits Requested Visits Authorized [id number] Closed PCP Requested Referral 06/01/2021 06/01/2022 1 1 Reason Comments Consult Lump on scrotum Specialty Diagnoses / Procedures Referred By Contac t Referred To Contact Urology Diagnoses Scrotal abscess Procedures CONSULT TO UROLOGY OFFICE/OUTPATIENT [facility] MDM 60-74 MINUTES Vern Parker APRN.DIRECTOR OF INDIVIDUAL GIVING [address] [place] [address] Referral ID Status Reason Start Date Expiration Date V isits Requested Visits Authorized [id number] Closed PCP Requested Referral 10/11/2021 10/11/2022 1 1 Reason Comments Cough Pt reported intermit tent throat pain with coughing rated 3, x1 wk. 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 Jo-Ann Church MD Family Provider Active Dr. Vlad Smith MD Primary Care Provider Acti ve Team Status: Inactive Member Role Status Dates Dr. Vlad Smith MD Primary Care Provider, Ref erring Provider Active Nehemiah Sharp SONOGRAPHER, SONOGRAPHER-C Attending Provider Active Team Status: Inactive Member Role Status Dates Dr. Vlad Smith MD Primary Care Provider Acti ve Maria Victoria [place] Attending Provider, Referring Provide r Active Office Employee Relationship Specialty Start Date End Date Sun Brar MD [address] [place] [address] PCP - General Internal Medicine 02/01/23 Team Status: Active Member Role Status Dates Dr. Jo-Ann Church MD Family Provider Active Dr. Sun Brar MD Primary Care Provider Active Team Status: Active Member Role Status Dates Dr. Sun Brar MD Primary Care Provider, Other Provider Active Dr. Steffen Gutierrez MD Other Provider Active Dr. Eliu Benites DPM Admit Provider , Referring Provider, Other Provider Active Dr. Milla Horner MD Other Provider Active Dr. Cas Sams , Other Provider Active Dr. Merle Cunningham MD Other Provider Active Layne Aguillon SONOGRAPHER, SONOGRAPHER-C Other Provider Active Grazyna Esquivel SONOGRAPHER-C Other Provider Active Jah Diaz SONOGRAPHER, SONOGRAPHER-C Other Provider Active Howie PEREZ, PA Other Provider Active ANA Haro Other Provider Active ANA Fofana Other Provider Active Dr. Xiomara Manley MD Attending Provider Active Team Status: Active Member Role Status Dates Dr. Sun Brar MD Primary Care Provider, Other Provider Active Dr. Eliu Benites , ARI Admit Provider , Referring Provider, Other Provider Active Dr. Milla Horner MD Other Provider Active Dr. Cas Sams , Other Provider Active Dr. Merle Cunningham MD Other Provider Active Layne Aguillon SONOGRAPHER, SONOGRAPHER-C Other Provider Active Grazyna Esquivel SONOGRAPHER-C Other Provider Active Jah Diaz SONOGRAPHER, SONOGRAPHER-C Other Provider Active Howie Conde PA, PA Other Provider Active Irlanda Lo , PA Other Provider Active Irlanad McGoron , PA Other Provider Active Dr. Maksim Albright MD Other Provider Active Dr. Levi Carter MD Attending Provider, Other Provi cheryle Active Team Status: Inactive Member Role Status Dates Dr. Sun Brar MD Primary Care Provider Active Dr. Ovidio Cedillo , Attending Provider, Emergency Provider Active Team Status: Inactive Member Role Status Dates Dr. Sun Brar MD Primary Care Provider, Other Provider Active Dr. Eliu Benites , ALYSAM Admit Provider , Attending Provider, Referring Provider Active Dr. Milla Horner MD Other Provider Active Dr. Cas Sams , DO Other Provider Active Dr. Merle Cunningham MD Other Provider Active Layne Aguillon SONOGRAPHER, SONOGRAPHER-C Other Provider Active Grazyna Esquivel SONOGRAPHER-C Other Provider Active Jah Diaz SONOGRAPHER, SONOGRAPHER-C Other Provider Active Howie Conde PA, PA Other Provider Active Irlanda Lo , PA Other Provider Active Irlanda McGoron , PA Other Provider Active Dr. Maksim Albright MD Other Provider Active Dr. Levi Carter MD Other Provider Active Team Status: Active Member Role Status Dates Dr. Sun Brar MD Primary Care Provider, Other Provider Active Dr. Eliu Benites , ALYSAM Admit Provider, Other Provid er Active Dr. Milla Horner MD Other Provider Active Dr. Cas Sams , DO Other Provider Active Dr. Merle Cunningham MD Other Provider Active Layne Aguillon SONOGRAPHER, SONOGRAPHER-C Other Provider Active Grazyna Esquivel , SONOGRAPHER-C Other Provider Active Jah Diaz SONOGRAPHER, SONOGRAPHER-C Other Provider Active Howie Conde PA, PA Other Provider Active Irlanda Lo , PA Other Provider Active Irlanda McGoron , PA Other Provider Active Dr. Maksim Albright MD Other Provider Active Dr. Levi Carter MD Attending Provider, Other Provi cheryle Active Team Status: Inactive Member Role Status Dates Dr. Sun Brar MD Primary Care Provider, Refer ring Provider Active Grazyna Esquivel SONOGRAPHER-C Attending Provider Active Team Status: Inactive Member Role Status Dates Dr. Sun Brar MD Primary Care Provider Active Dr. Maksim Albright MD Attending Provider, Referrin g Provider Active Team Status: Inactive Member Role Status Dates Dr. Sun Brar MD Primary Care Provider Active JOSEP Dejesus Attending Provider Active Team Status: Inactive Member Role Status Dates Dr. Sun Brar MD Primary Care Provider Active Dr. Ovidio Cedillo DO Emergency Provider Active Team Status: Active Member Role Status Dates Dr. Milla Horner MD Primary Care Provider Active Team Status: Inactive Member Role Status Dates JOSEP Dejesus Referring Provider Active S tart: March 22, 2024 End: March 22, 2024 Dr. Milla Horner MD Attending Provider Active Start: March 22, 2024 End: March 22, 2024 Team Status: Active Member Role Status Dates Lisa Parker Attending Provider Active Start: 2024 Team Status: Active Member Role Status Dates Dr. Milla Horner MD Primary Care Provider Active Start: May 10, 2024 Dr. Eliu Benites DPM Attending Provider Active Start: May 10, 2024 Team Status: Inactive Member Role Status Dates Dr. Milla Horner MD Primary Care Provider Active Start: May 13, 2024 End: May 13, 2024 Dr. Milla Horner MD Referring Provider Active Start: May 13, 2024 End: May 13, 2024 Dr. Alessandro Andrea MD Attending Provider Active Start: May 13, 2024 End: May 13, 2024 Team Status: Active Member Role Status Dates Dr. Milla Horner MD Primary Care Provider Active Start: May 13, 2024 Dr. Milla Horner MD Referring Provider Active Start: May 13, 2024 Dr. Alesasndro Andrea MD Attending Provider Active Start: May 13, 2024 Dr. Alessandro Andrea MD Other Provider Active Start: May 13, 2024 Team Status: Inactive Member Role Status Dates Dr. Milla Horner MD Primary Care Provider Active Start: May 10, 2024 End: May 10, 2024 Dr. Eliu Benites DPM Attending Provider Active Start: May 10, 2024 End: May 10, 2024 Team Status: Inactive Member Role Status Dates Dr. Milla Horner MD Primary Care Provider Active Start: June 23, 2024 End: June 23, 2024 Dr. Milla Horner MD Attending Provider Active Start: June 23, 2024 End: June 23, 2024 Dr. Milla Horner MD Referring Provider Active Start: June 23, 2024 End: June 23, 2024 Team Status: Inactive Member Role Status Dates Dr. Milla Horner MD Primary Care Provider Active Start: July 01, 2024 End: July 01, 2024 Dr. Ayad Baker DO Emergency Provider Active Start: July 01, 2024 End: July 01, 2024 Team Status: Inactive Member Role Status Dates Dr. Milla Horner MD Primary Care Provider Active Start: July 01, 2024 End: July 01, 2024 Dr. Ayad Baker DO Attending Provider Active Start: July 01, 2024 End: July 01, 2024 Dr. Ayad Baker DO Emergency Provider Active Start: July 01, 2024 End: July 01, 2024 Team Status: Active Member Role Status Dates Dr. Milla Horner MD Primary Care Provider Active Start: July 07, 2024 Ismael Ling MD Emergency Provider Active Star t: July 07, 2024 Dr. Mane Del Rio MD Admit Provider Active Start: July 07, 2024 Dr. Mane Del Rio MD Attending Provider Active Start: July 07, 2024 Goals (unrecognized section and content) Goals may be documented in a n alternate sectionGoals may be documented in an alternate sectionGoals may be documented in an alternate sectionGoals may be documented in an alternate section No data available for this sectionGoals may be documented in an alternate sectionGoals may be documented in an alternate section FOR RECORDS PERTAINING TO PATIENTS WHO ARE [...] BE BASED ON THE PRIMARY CLINICAL RECORDS. [facility]. provides no warranty or guarantee of the accuracy or completeness of information in this document.
--- NOTE | 2024-07-23 06:34 | PRE.ANES_ITS ---
ASA Classification* ASA Classification ASA Classification: 2 Assessment & Plan Anesthesia* Anesthesia Assessment Anesthesia Assessment: Discussed sedation and/or anesthesia options, risks, benefits, and alternatives with patient/parents/legal guardian/POA. Questions invited. The patient/parents/legal guardian/POA seems to understand and agrees to proceed with anesthesia plan. Reviewed the physical assessment, medical history, allergy history and patient home medications list prior to surgery/procedure/anesthetic and documented any changes. Performed airway and anesthesia risk assessments. Anesthesia Type Anesthesia Type: General Anesthesia Focused Assessment* Airway Assessment Mouth opens: >3 cm Mallampati Score: II Focused Labs Anesthesia Preop lab: CBC WBC 9.2 K/mm3 (4.4-11.0) 07/09/24 06:11 07/09/24 RBC 4.83 M/mm3 (4.6-6.2) 07/09/24 06:11 07/09/24 Hgb 14.1 g/dL (13.0-16.5) 07/09/24 06:11 07/09/24 Hct 40.7 % (40-54) 07/09/24 06:11 07/09/24 Plt Count 179 K/mm3 (150-450) 07/09/24 06:11 07/09/24 CHEMISTRY Potassium 3.2 mmol/L (3.3-5.1) L 07/09/24 06:11 07/09/24 Sodium 140 mmol/L (133-145) 07/09/24 06:11 07/09/24 Magnesium 1.8 mg/dL (1.6-2.6) 02/24/23 13:15 02/24/23 Phosphorus 3.1 mg/dL (2.5-4.9) 04/28/21 07:30 04/28/21 BUN 8 mg/dL (4-19) 07/09/24 06:11 07/09/24 Creatinine 0.62 mg/dL (0.70-1.20) L 07/09/24 06:11 Glucose 97 mg/dL (70-99) 07/09/24 06:11 07/09/24 POC Glucose 105 mg/dL (74-106) 07/09/24 10:47 07/09/24 TSH 0.98 uIU/mL (0.358-3.74) 05/15/23 12:28 COAG PT 14.1 SECONDS (11.7-14.9) 07/07/24 09:30 Pre-Assessment Diagnosis/Proposed Procedure Planned Operative Procedure(s): REPAIR OF THE RIGHT ANTERIOR TIBIAL TENDON AND CHEILECTOMY OF THE RIGHT FIRST METATARSAL PHALANGEAL JOINT Anesthesia History Anesthesia History - replenishment buyer: Anesthesia History - replenishment buyer Hx Hospitalization No 07/22/24 12:00 Any Problems With Anesthesia No 07/22/24 12:00 Cholinesterase deficiency No 07/22/24 12:00 You/Your Family Experience No 07/22/24 12:00 fever (hyperthermia) with Relationship Recent Exposure to Contagious No 07/08/24 05:27 Disease Does patient have nerve No 07/22/24 12:00 stimulator Patient instructed to have device shut off --Does patient have Pacemaker or ICD? When Was Last Pacemaker Check QUESTION #4 FULL TEXT: You/Your Family Experience fever (hyperthermia) with Anesthesia Last Oral Intake Last Oral intake: Last Oral Intake NPO since Meds taken in AM with sips of water? Meds patient instructed to take am of surgery PONV PONV - replenishment buyer: PONV - replenishment buyer Female No 07/22/24 12:00 HX of Motion Sickness No 07/22/24 12:00 HX of N/V After Surgery No 07/22/24 12:00 Non-Smoker Yes 07/22/24 12:00 Duration of Surgery greater Yes 07/22/24 12:00 than 60 minutes Number of Risk Factors 2 07/22/24 12:00 PONV Score Moderate Risk 07/22/24 12:00 Height & Weight Height & Weight: Anesthesia: Height & Weight Height 6 ft 3 in 07/08/24 14:39 Respiratory Assessment Respiratory Assessment - replenishment buyer: Respiratory Tract Infection Hx - replenishment buyer Hx Respiratory Tract Infection No 07/22/24 12:00 STOP Sleep Apnea STOP Sleep Apnea - replenishment buyer: STOP Sleep Apnea - replenishment buyer Hx Hypertension No 07/22/24 12:00 Hx Sleep Apnea No 07/22/24 12:00 CPAP No 07/08/24 15:03 BIPAP No 07/07/24 14:44 Do you snore loudly (louder No 07/22/24 12:00 than talking or can be heard Do you often feel tired/ No 07/22/24 12:00 fatigued/ sleepy during daytime? Has anyone observed you stop No 07/22/24 12:00 breathing during sleep? STOP Results Negative 07/22/24 12:00 QUESTION #5 FULL TEXT : Do you snore loudly (louder than talking or can be heard through closed doors)? 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 Specify any problems Hx of Preganancy in last 3 N/A 07/22/24 12:00 Months Nurse Filling Out Transfusion DSCHRIBER 07/22/24 12:00 & Questions: Date: 07/22/24 07/22/24 12:00 Time: 12:02 07/22/24 12:00 Patient unable to answer at this time (ie. confused, unrespo /Reproduction History /Reproductive History - replenishment buyer: /Reproductive Hx- replenishment buyer Hx Now No 07/22/24 12:00 Gestational Age (in weeks): EDC: Hx Hx Para Hx Section SAB No 07/22/24 12:00 Active Medications Active Medications: Current Medications Generic Name Dose Route Start Last Admin Trade Name Freq PRN Reason Stop Dose Admin Cefazolin Sodium 3 gm/ Sodium 115 mls @ 150 mls/hr 07/23/24 07:30 Chloride IV 07/23/24 08:15 INTRAOP ONE Lactated Ringer's 1,000 mls @ 15 mls/hr 07/23/24 06:30 IV .Q48H ERIN PFSH Medical History Dietary restriction Wears glasses Diabetes Arthritis Family history of malignant neoplasm of colon in father Acute osteomyelitis of toe of left foot 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 Cellulitis of right lower extremity Former smoker COVID-19 Morbid obesity Home Medications ?Medication ?Instructions ?Recorded ?Last Taken ?Type alfuzosin 10 mg tablet,extended 10 mg PO QHS 02/24/23 05/12/24 History release 24 hr 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 sensor (FreeStyle #4 ea 05/15/23 Unknown Rx Zay 3 Sensor device) 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,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,cont #1 ea 05/15/23 Unknown Rx (FreeStyle Zay 3 [place]) blood sugar diagnostic (Contour #100 ea 01/14/24 Unkno wn Rx Test Strips) multivitamin 1 tab PO QDAY 03/25/2405/10 History metformin 500 mg tablet 500 mg PO DAILY #90 TABLETS 07/06/24 Unknown Rx semaglutide 2 mg/dose (8 mg/3 mL) 2 mg subcut SA 07/2207/10/24 History subcutaneous pen injector Allergy/AdvReac Type Severity Reaction Status Date / Time No Known Allergies Allergy Verified 07/22/24 11:57 Family History Father Colon cancer, Onset Age: 40 Diabetes Skin cancer Mother Hypertension Surgical History Hx of toe surgery Hx of amputation of lesser toe History of tonsillectomy Hx of foot surgery History of ankle surgery Social History adopted: No household members: significant other current occupational status: 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 current occupational exposures/hazards: No pets and animals: Yes pets and animals: dog(s) history of recent travel: No sexually active: Yes Smoking Status: Former smoker quit date: 02/18/04 pack-years: 10 Tobacco: How many years used: 10 Smokeless tobacco user: other second hand exposure: No alcohol intake: current alcohol intake frequency: holidays/special occasions only substance use type: does not use well-balanced diet: daily or most days caffeine: Yes eating out: 1-3 times/week during the past year weight has: decreased > 10 lbs frequency: 1-2 times per week duration: 15-30 minutes/day ethan/sabianism: Orthodoxy seatbelt use: always do you feel safe at home: Yes Review of Systems (Anesthesia) ROS Narrative System reviewed and no additional complaints, except as documented.
[2024-07-23 07:02] LABS: Bedside Glucose 127 mg/dL (74-106)
[2024-07-23] MEDS: Lactated Ringers 1,000 ML 15 ML IV (07:08)
--- NOTE | 2024-07-23 07:20 | RAD_ITS ---
EXAM: XR Right Ankle, 2 Views CLINICAL INDICATION: REPAIR RT ANTERIOR TIBIAL TENDON AND CHEILECTOMY RT METATARSAL TECHNIQUE: Frontal and lateral views of the right ankle. COMPARISON: No relevant prior studies available. FINDINGS: BONES/JOINTS: Unremarkable. No acute fracture. No dislocation. SOFT TISSUES: Unremarkable. OTHER FINDINGS: Fluoroscopic guidance was used intraoperatively. A total of 5 images were obtained. Total fluoroscopy time was 2 minutes. Total radiation dose was 22.7 mGy. RAD/Ankle 2 Views IMPRESSION: Fluoroscopic guidance was used intraoperatively. Please refer to the operative note for further details. Reading Location: [id number]
--- NOTE | 2024-07-23 07:30 | AMP_PTH ---
PATIENT: DANIELLE DUMAS LOC: [facility] – [place] U#:[id number] AGE/SX: 48/M ROOM: RE07/23/[address]: Dr. Eliu Benites DPM : 1975 BED: DIS: 07/23/2024 SPEC #: [id number] RECD: 07/23/24 10:41 STATUS: CANDY REQ #: [id number] BEVERLY: 07/23/24 07:[address]: Eliu Benites DEPT: SURGICAL PATHOLOGY RECD BY: Troy Hernandez ENTERED: 07/23/24 10:53 SP TYPE: Amputation OTHR DR: Dr. Milla Horner MD Tissues: A - Toe, NOS B - Tendon, NOS Procedures: Decalcification bone/plaque Surgery Specimen Level III Surgery Specimen Level IV HEADER OPERATION: Repair of right anterior tibial tendon and cheilectomy PRE-OP DIAGNOSIS: Traumatic tear of the right anterior tibialis tendon right 1st MTPJ hallux rigidus TISSUE SUBMITTED: A- Bone right first MTPJ, B- Debrided anterior tibial tendon MICROSCOPIC DIAGNOSIS A. Right foot, first metatarsophalangeal joint: * Benign cortical bone with focal fat necrosis, benign B. Anterior tibial tendon, debrided tissue: * Fibrotic nodules with areas of necrosis, hemorrhage, and fibrin deposition, benign MICROSCOPIC DESCRIPTION Slides are reviewed. GROSS DESCRIPTION A. Received in formalin in a container labeled with the patient's name, date of , and bone right first MTPJ is a 3.3 x 2.0 x 0.8 cm fragment of ivy and firm bone. There is minimal attached soft tissue. Sectioning reveals ivy and firm bone. Vending Machine Host/Hostess sections are submitted in A1 following decalcification. B. Received in formalin in a container labeled with the patient's name, date of , and debrided anterior tibial tendon are multiple red-ivy, irregular, and rubbery fragments of soft tissue measuring 2.9 x 2.8 x 1.3 cm in aggregate. Sectioning reveals red-ivy, hemorrhagic surfaces. Vending Machine Host/Hostess sections are submitted in B1. [facility] 07-23-2024 CPT:63286,[id number]
[2024-07-23] MEDS: Cefazolin 3 GM in 0.9% Normal Saline (100mL Bag) 100 ML IV (07:32)
--- NOTE | 2024-07-23 07:47 | PCM.DC ---
Discharge Instructions Diet Discharge Diet: Light diet - advance as tolerated DC O2, CPAP, BIPAP needs Home O2 Discharge instructions: No Dressing / Incision Discharge Activity: May Not Drive Weight Bearing Status: No weight bearing (No weightbearing right foot) Keep extremity elevated above heart level: Operative Extremity (Keep right foot elevated for at least 50 minutes of every hour) Dressing / Incision Call your doctor if your incision/area has: Continuous Slow Oozing, Sudden Increased Bleeding and Foul Smelling Discharge Call your doctor if you observe: Fever of 101 or Higher, Shortness of breath, Chest pain, Increased palpitations (irregular heartbeat), Calf discomfort and Uncontrolled pain Change Dressing in: do not change dressing Remove Dressing in: do not remove dressing Cleanse incision/area with: Keep Dressing Clean & Dry Follow Up Care Please Follow Up With: Eliu Benites DPM When: in office next week, sooner if needed Test Results: Test results from this visit will be discussed in further detail at your follow-up appointment, if applicable. Discharge Plan Admission Attending Provider: Eliu Benites Primary Care Provider: Milla Horner Instructions Print Language: Greenlandic Discharge Orders/Prescriptions Prescriptions: New oxycodone 5 mg tablet 5 mg PO Q4H PRN (Reason: pain) 3 Days Qty: 24 0RF Eliquis 2.5 mg tablet 2.5 mg PO Q12H Qty: 30 0RF Continued (DME) FreeStyle Zay 3 [place] Misc See Rx Instructions .Route Qty: 1 0RF Rx Instructions: As directed (DME) FreeStyle Zay 3 Sensor Device See Rx Instructions .Route Qty: 4 12RF Rx Instructions: As directed multivitamin Tablet 1 tab PO QDAY alfuzosin 10 mg tablet extended release 24 hr 10 mg PO QHS semaglutide 2 mg/dose (8 mg/3 mL) pen injector 2 mg subcut SA Rx Instructions: x4 weeks (DME) Contour Test Strips Strip See Rx Instructions .Route Qty: 100 1RF Rx Instructions: As directed metformin 500 mg tablet 500 mg PO DAILY Qty: 90 0RF Referrals / Follow Up: Milla Horner MD [Primary Care Provider] - Disposition Disposition (needs filled in before D/C Order can be placed): Home, Self Care
[2024-07-23] MEDS: Bupivacaine Mpf 0.5% 30 ML VIAL (07:55)
--- NOTE | 2024-07-23 10:16 | PCM.OPRPT ---
Operative Report (Standard) Operative Information Date of Procedure: 07/23/24 Pre-Operative Diagnosis: 1st metatarsal phalangeal joint arthritis, right Torn/Ruptured anterior tibial tendon, right Post-Operative Diagnosis: Same Surgery/Procedure Performed: Repair of anterior tibial tendon, right Cheilectomy right 1st metatarsal phalangeal joint washhouse hand: No Type of Anesthesia: General and Local RN Documented Start/Stop Times: Operation Date: 07/23/24 07:30 Case Time Into Pre-Op 07/23/24 06:18 Out of Pre-Op 07/23/24 07:31 Anesthesia Start 07/23/24 07:32 Into Room 07/23/24 07:32 Procedure Start 07/23/24 07:57 Procedure End 07/23/24 10:07 Anesthesia End 07/23/24 10:13 Out of Room 07/23/24 10:13 Into Recovery 07/23/24 10:15 Out of Recovery 07/23/24 11:02 Into Phase II Recovery 07/23/24 11:06 Out of Phase II 07/23/24 12:24 Procedure Start Time: 07:57 Procedure Stop Time: 10:07 Select all DRAINS/GRAFTS/IMPLANTS that apply: None Estimated Blood Loss: 10mL Specimen collected: Yes Description of specimen(s) removed: Debrided bone 1st metatarsal phalangeal joint, right - sent to pathology Debrided anterior tibial tendon, right Description of surgery: Indications: This is a 48 year old gentleman who sustained a rupture of his right anterior tibial tendon several weeks ago, and also has 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 Clinical findings and pre operative MRI were consistent with tibialis anterior rupture. Also he has chronic pre ulcerative and ulcerative lesion right 1st toe due to lack of 1st metatarsal phalangeal joint dorsiflexion. He recently had left 3rd toe osteomyelitis which he has been treated for and site is doing very well. This was discussed with him, we discussed all of the options. He elected to proceed forward with tibialis anterior tendon repair and 1st metatarsal phalangeal joint cheilectomy right foot. We discussed this in great detail. Reviewed all of the possible benefits vs risks/possible complications. Typical post op course and healing was reviewed with him. Reviewed goals and expectations. All alternative options were discussed with him. He expressed understanding and agreement. He elected to proceed forward with the repair. The consent forms were reviewed with him and he freely signed them. All of his questions were answered, and no guarantees were given nor implied. No warranties were given. I did discuss with Dr. Albright and from left 3rd toe infection standpoint ok to proceed with surgery on right foot as noted above. Operative Procedure: The patient was brought back to the operating room and was placed on the operating room table in the supine position. Patient was carefully secured to the operating room with a safely belt around his waist. A time out was performed, the patient was properly identified and the surgical plan was confirmed. The patient received 3 grams of intervenous cephazolin for antibiotic prophylaxis. The patient received general anesthesia per the anesthesia team. A well padded pneumatic tourniquet was applied around patient's right thigh. The right lower extremity was scrubbed, prepped, and draped in the usual aseptic fashion. The left foot was elevated and exsanguinated using an Esmarch bandage and the right thigh pneumatic tourniquet was inflated to 30mmHg. Right 1st metatarsal phalangeal joint cheilectomy: An incision was made to the dorsal medial aspect of the 1st metatarsal phalangeal joint using a 15 blade. Careful dissection was completed down to the joint capsule and the capsule was incised and partially reflected exposing the dorsal, lateral and medial aspect of the 1st metatarsal head. There was noted to be significant wearing away of cartilage on the 1st metatarsal head with 3 spots of focal cartilage defects. There was significant adhesions noted with no dorsiflexion of the 1st metatarsal phalangeal joint. Dorsally there was significant impingement with hallux dorsiflexion. The dorsal 1/3 of the 1st metatarsal head was resected using a powered sagittal saw, the resected bone was sent to pathology. The adhesions to the joint were released using a McGlamry metatarsal elevator. The 3 focal cartilage defects were drilled with a 0.062in kwire. There was was now normal range of motion to the 1st metatarsal phalangeal joint, there was 90 degress of dorsiflexion noted which was confirmed with intraoperative fluoroscopy. There was smooth normal gliding range of motion of the 1st metatarsal phalangeal joint at this time with normal alignment. There was no popping, clicking or crepitus present. The joint was checked and there was no fragments in the joint and the joint was in good alignment. The surgical site was flushed out with copious amounts of normal saline solution. Tissues were healthy and viable at this time. The capsule and subcutaneous tissue layers were reapproximated using?2-0 Vicryl and the skin was reapproximated using 3-0 Monocryl. Right anterior tibial tendon repair: A longitudinal skin incision was made overlying the anterior tibial tendon on the distal leg extending to the medial cuneiform and base of the 1st metatarsal using a 15 scalpel blade. Careful blunt dissection was completed down to the anterior tibial tendon sheath which was incised using a 15 scalpel blade. The tendon was visualized and was noted to be completely ruptured near its insertion point. There was significant hematoma formation. The ends of the tendon were frayed, there was some degeneration to the tendon. The site was flushed out with copious amounts of normal saline solution. The tendon was debrided of the degeneration and frayed edges and was sent to pathology. Fibertape was passed through the proximal tendon. The suture ends were placed into an Arthrex suture button. The button was fixated to the plantar aspect of the 1st cuneiform using rigid open reduction internal fixation technique. The extensor retinaculum was reapproximated using 2-0 Vircyl. The foot/ankle was dorsiflexed and inverted and the tendon was brought out to length but it was noted due to the degeneration and frayed edges that needed to be debrided there was not enough tendon to pass through the drill hole of the 1st cuneiform, was just short, the tendon came just right up to the drill hole. Arthroflex allograft was utilized to bridge the small gap and to allow for scaffolding to help ingrowth and remodeling of the anterior tibial tendon and enhance fixation into the 1st cuneiform. The allograft was sutured to the distal end of the anterior tibial tendon. The allograft and very distal end of the anterior tibial tendon was placed into the drill hole of the 1st cuneiform and the fibertape was placed through the tendon and sutured. A 6.25mm Arthrex tenodesis screw was placed into the 1st cuneiform drill hold further fixating the repaired tendon. The tendon was repair and appropriate tendon. Proper placement of the suture button was confirmed using intraoperative fluoroscopy. Again it was noted the tendon was repaired back to normal anatomic tension. The repair was complete. The site was flushed with copious amounts of normal saline solution. The anterior tibial tendon sheath was reapproximated using 2-0 Vicryl, the subcutaneous tissue was reapproximated using 2-0 Vicryl, the skin was reapproximated using 3-0 monocryl. Cavilon was painted to the sutured incisions and 1/4 inch steristrps were applied across the incisions. The pneumatic tourniquet was deflated and there was immediate return of normal vascular flow to the foot and lower extremity with normal temperature gradient present, CFT < 2 seconds to all toes with normal perfusion. Total tourniquet time was 122 minutes. A total of 30ml of 0.5% Bupivacaine was given as a local nerve block around the surgical site. A dressing was applied which consisted of Betadine soaked adaptic, 4x4 gauze, kerlix, webril, haily bandages and a well padded below knee posterior splint with heel offloaded. The patient was transported from the operating room to the recovery room with vital signs stable and in good condition. Post operative orders were placed. Post operative instructions were given both verbal and written to patient and his parents who were with him today. Prescription for Oxycodone 5mg tab - 1 tab PO q 4 hours prn pain for pain control, and 2.5mg Eliqus PO q 12 hours to help prevent a blood clot was provided. The patient is to remain nonweightbearing to the right foot at all times, and keep right foot elevated for at least 50 minutes of every hour. Keep dressing/splint clean, dry and intact right lower extremity. He is to follow up with me within 1 week or sooner if needed. Surgical Findings: As noted above. Complications Complications: No
--- NOTE | 2024-07-23 10:21 | PCM.POST.ANE ---
Anesthesia: Postop Eval I Current Vital Signs Temperature: 98 F Pulse Rate: 88 Blood Pressure: 109/68 Respiratory Rate: 16 Pulse Ox: 96 Oxygen Delivery Method: Nasal Cannula Oxygen Flow Rate (L/min): 2 Assessment Airway patent: Yes Spontaneous unlabored respirations: Yes Mental status: Awake and Calm nausea: No Vomiting: No Anesthesia Complication: No Fluid Hydration Crystalloid volume administer (ml): 800 Total IV fluid infused: 800 Progress Note Anesthesia document: Postop Eval 1 completed: Yes
--- NOTE | 2024-07-23 11:01 | POSTOPAN2_ITS ---
Anesthesia Postop Eval I Sum Postop Eval Completion status Anesthesia document: Postop Eval 1 completed: Yes Anesthesia Postop Eval I Summary Anesthesia Postop Eval I Summary: Anesthesia Postop Eval I: Assessment Summary Airway patent Yes 07/23/24 10:22 [email or web address] Spontaneous unlabored Yes 07/23/24 10:22 [email or web address] [email or web address] respirations Mental status Awake,Calm 07/23/24 10:22 [email or web address] nausea No 07/23/24 10:22 [email or web address] Vomiting No 07/23/24 10:22 [email or web address] Anesthesia Postop Eval I: Fluid Summary Crystalloid volume administer 800 07/23/24 10:22 [email or web address] (ml) Colloids volume administered ( ml) Blood Product volume administered (ml) Total IV fluid infused 800 07/23/24 10:22 [email or web address] Anesthesia Postop Eval I: Summary Notes Anesthesia Complication No 07/23/24 10:22 [email or web address] Anesthesia Complication Comment: Post-operative progress note Anesthesia: Postop Eval II Evaluation Mental status: Awake Pain Level: 0 nausea: No Vomiting: No
--- NOTE | 2024-07-23 11:01 | PCM.POSTANE2 ---
Anesthesia Postop Eval I Sum Postop Eval Completion status Anesthesia document: Postop Eval 1 completed: Yes Anesthesia Postop Eval I Summary Anesthesia Postop Eval I Summary: Anesthesia Postop Eval I: Assessment Summary Airway patent Yes 07/23/24 10:22 OFFAL [email or web address] Spontaneous unlabored Yes 07/23/24 10:22 OFFAL ICER [email or web address] respirations Mental status Awake,Calm 07/23/24 10:22 OFFAL [email or web address] nausea No 07/23/24 10:22 OFFAL ICER [email or web address] Vomiting No 07/23/24 10:22 OFFAL ICER [email or web address] Anesthesia Postop Eval I: Fluid Summary Crystalloid volume administer 800 07/23/24 10:22 OFFAL [email or web address] (ml) Colloids volume administered ( ml) Blood Product volume administered (ml) Total IV fluid infused 800 07/23/24 10:22 OFFAL [email or web address] [email or web address] Anesthesia Postop Eval I: Summary Notes Anesthesia Complication No 07/23/24 10:22 OFFAL [email or web address] Anesthesia Complication Comment: Post-operative progress note Anesthesia: Postop Eval II Evaluation Mental status: Awake Pain Level: 0 nausea: No Vomiting: No
== END 2024-07-23 12:24 | disposition home or self-care (01) ==
LOC: SDC 06:00 → AC 06:01
PROVIDERS: PCP Internal Medicine; Referring Provider Podiatrist; Visit Provider Podiatrist
PROC: (CPT 28289; principal; 2024-07-23 07:15)
DX: M19.071 Primary osteoarthritis, right ankle and foot (principal); E11.621 Type 2 diabetes mellitus with foot ulcer; L97.519 Non-pressure chronic ulcer of other part of right foot with unspecified severity; E11.42 Type 2 diabetes mellitus with diabetic polyneuropathy; S86.211A Strain of muscle(s) and tendon(s) of anterior muscle group at lower leg level, right leg, initial encounter; Z87.39 Personal history of other diseases of the musculoskeletal system and connective tissue; Z87.891 Personal history of nicotine dependence
CPT/HCPCS: 28289; 27691; 01480; 73600; 76000; 82962; 88304; 88305; 88311; C1713; J2405

== ENCOUNTER → 2024-08-30 | Outpatient (CLI) | payer OTHER, SELFPAY | END | disposition home or self-care (01) | LOC: LABSPEC 16:33 | PROVIDERS: PCP Internal Medicine; Visit Provider Podiatrist | DX: L03.115 Cellulitis of right lower limb (principal) | CPT/HCPCS: 87070; 87077; 87186; 87205 ==

== ENCOUNTER → 2024-10-07 | Outpatient (CLI) | payer OTHER, SELFPAY ==
[2024-10-07 12:35] LABS: PSA,Total - Annual Screen 0.75 ng/mL (0.02-4.00)
== END | disposition home or self-care (01) ==
LOC: LAB 10:48
PROVIDERS: PCP Internal Medicine; Referring Provider Nurse Practitioner; Visit Provider Nurse Practitioner
DX: Z12.5 Encounter for screening for malignant neoplasm of prostate (principal)
CPT/HCPCS: 36415; 84153; G0103